=== PATIENT | female | born 1980 | race Caucasian/White ===

== ENCOUNTER 2022-11-20 07:51 | Outpatient (OUT) | payer BC, SELFPAY ==
[2022-11-20 08:16] LABS: Basophils Absolute Auto 0.1 10^3/uL (0.0-0.1); Eosinophils Absolute Auto 0.2 10^3/uL (0.0-0.7); Eosinophils Percent Auto 3.6 % (0.9-7.0); Hematocrit 40.6 % (36.0-48.0); Hemoglobin 13.3 g/dL (12.0-16.0); Immature Granulocytes Abs Auto 0.02 10^3/uL (0.00-0.03); Immature Granulocytes Pct Auto 0.3 % (0.0-0.5); Lymphocytes Absolute Auto 1.4 10^3/uL (1.2-3.8); Lymphocytes Percent Auto 22.9 % (20.5-60.0); Mean Corpuscular HGB Conc 32.8 g/dL (29.9-35.2); Mean Corpuscular Hemoglobin 29.5 pg (26.7-34.0); Mean Platelet Volume 10.5 fL (9.5-13.5); Monocytes Absolute Auto 0.4 10^3/uL (0.3-0.8); Monocytes Percent Auto 5.8 % (1.7-12.0); Neutrophils Percent Auto 66.4 % (43.0-75.0); Platelet Count 260 10^3/uL (150-450); Red Blood Count 4.51 10^6/uL (4.20-5.40); Red Cell Distribution Width 14.1 % (11.0-15.0); White Blood Count 6.1 10^3/uL (4.0-11.0)
[2022-11-20 09:04] LABS: Estimated Average Glucose 100 mg/dL; Glycohemoglobin A1C 5.1 % (4.5-6.2)
[2022-11-20 15:07] LABS: Alanine Aminotransferase 42 U/L (14-59); Alkaline Phosphatase 71 U/L (46-116); Anion Gap 13.3; Aspartate Amino Transferase 18 U/L (15-37); Bilirubin Total 0.5 mg/dL (0.2-1.0); Calcium 8.8 mg/dL (8.5-10.1); Chloride 103 mmol/L (98-107); Estimated GFR (African America >60 (>=60); Estimated GFR (Non-African Ame >60 (>=60); Glucose 90 mg/dL (74-106); Potassium 4.3 mmol/L (3.5-5.1); Sodium 139 mmol/L (136-145); Total Protein 7.3 g/dL (6.4-8.2)
[2022-11-20 15:08] LABS: Albumin Globulin Ratio 1.1; Albumin Level 3.9 g/dL (3.4-5.0); Chol HDL Ratio 3.3; Cholesterol 220 mg/dL (<=200); Globulin 3.4 g/dL; HDL Cholesterol 67 mg/dL (40-60); Thyroid Stimulating Hormone 1.407 uIU/mL (0.358-3.740); Triglycerides 41 mg/dL (<=150); VLDL CHOLESTEROL 8.2 mg/dL
== END 2022-11-20 07:52 | disposition home or self-care (01) ==
LOC: LAB 07:52
PROVIDERS: PCP Internal Medicine; Visit Provider Internal Medicine
DX: Z00.00 Encounter for general adult medical examination without abnormal findings (principal)
CPT/HCPCS: 36415; 80053; 80061; 83036; 84443; 85025

== ENCOUNTER 2023-06-27 10:05 | Outpatient (OUT) | payer BC, SELFPAY ==
--- NOTE | 2023-06-27 | XR_ITS ---
The [address] [address] Patient Name: WILD YI MRN: [id number] date: 1980 Sex: F Assigned Patient Location: Current Patient Location: Accession/Order Number: [id number] Exam Date: 06/27/2023 10:08 Report Date: 06/28/2023 04:57 At the request of: JOON BALTAZAR Procedure: XR lumbar spine min 4V EXAMINATION: XR lumbar spine min 4V HISTORY: LUMBAR SPINE PAIN COMPARISON: No relevant comparison available. FINDINGS: BONES: 10 mm anterior listhesis of L5 on S1. L5 bilateral pars interarticularis defects. No compression fracture or bone lesion. No significant facet arthropathy. DISC SPACES: Complete loss of disc space at L5-S1. PARASPINOUS: Negative. No paraspinous abnormality is seen. OTHER: Negative. XR/XR lumbar spine min 4V IMPRESSION: 1. Grade 2 anterior listhesis of L5 on S1 secondary to bilateral pars interarticularis defects; no change in alignment during flexion and extension. 2. L5-S1 marked degenerative disc disease with complete loss of disc space likely resulting in large posterior pseudodisc bulging. Electronically authenticated by: ZHAO HUNTER Date: 06/28/2023 04:57
== END 2023-06-27 10:06 | disposition home or self-care (01) ==
LOC: EC 10:05
PROVIDERS: PCP Internal Medicine; Visit Provider Orthopaedic Surgery Orthopaedic Surgery of the Spine
DX: M54.50 Low back pain, unspecified (principal); M51.37 Other intervertebral disc degeneration, lumbosacral region
CPT/HCPCS: 72110

== ENCOUNTER 2023-07-09 09:02 | Outpatient (OUT) | payer BC, SELFPAY ==
--- NOTE | 2023-07-09 09:06 | MR_ITS ---
[address] [address] Patient Name: WILD YI MRN: [facility]:[id number] date: 1980 Sex: F Assigned Patient Location: MRI Current Patient Location: MRI Accession/Order Number: [id number] Exam Date: 07/09/2023 09:10 Report Date: 07/09/2023 11:56 At the request of: JOON BALTAZAR Procedure: MR lumbar spine wo con EXAMINATION: MR lumbar spine wo con HISTORY: lumbar spondylolysis M43.06 COMPARISON: No relevant comparison available. TECHNIQUE: A variety of imaging planes and parameters were utilized for visualization of suspected pathology. FINDINGS: For the purposes of numbering, sagittal T2 image # 8 extends from the T11 vertebral body superiorly to the S3 level inferiorly. PARASPINAL AREA: Normal with no visible mass. BONES: 9 mm anterolisthesis of L5 in relation to S1. Bilateral L5 pars interarticularis fractures. Signal abnormality inferior L5 superior S1 vertebral body with decreased T1 increased T2 and STIR, Modic 1 change CORD/CAUDA EQUINA: Normal caliber, contour, and signal intensity. DISC LEVELS: 12-L1: No significant disc/facet abnormality, spinal stenosis, or foraminal stenosis. L1-L2: No significant disc/facet abnormality, spinal stenosis, or foraminal stenosis. L2-L3: No significant disc/facet abnormality, spinal stenosis, or foraminal stenosis. L3-L4: No significant disc/facet abnormality, spinal stenosis, or foraminal stenosis. L4-L5: Disc desiccation. Posterior disc protrusion leading up to 2.8 mm with annular tear. No central or foraminal stenosis L5-S1: 9 mm anterolisthesis of L5 on S1. Disc collapse with endplate sclerosis. Inflammatory signal noted in the vertebral bodies. No central canal stenosis. Severe bilateral foraminal stenosis MR/MR lumbar spine wo con IMPRESSION: 9 mm anterolisthesis of L5 on S1 resulting in severe bilateral foraminal stenosis Electronically authenticated by: CRISTIN CUEVAS Date: 07/09/2023 11:56
== END 2023-07-09 09:03 | disposition home or self-care (01) ==
LOC: MRI 09:02
PROVIDERS: PCP Internal Medicine; Visit Provider Orthopaedic Surgery Orthopaedic Surgery of the Spine
DX: M43.06 Spondylolysis, lumbar region (principal)
CPT/HCPCS: 72148

== ENCOUNTER 2023-07-30 12:27 | Outpatient (OUT) | payer BC, SELFPAY ==
--- NOTE | 2023-07-30 12:37 | P.CN_ITS ---
Consult Note: HPI Data of Consult Patient: new to practice Requesting Physician: Tammie Andrews NP Primary Care Provider: Aquiles Francisco, Consult Narrative Reason for consult: establish chronic low back pain with radiculopathy Narrative: Francoise Calvo a pleasant 43 year old female presents for evaluation and management of chronic low back pain with radiculopathy. Pain significantly increased 3 months ago in low back with right sided sciatica. Patient has failed to benefit from chiropractor and HEP greater than 6 weeks. Recent MRI and xray below, consistent with stenosis, degenerative changes, and lumbar instability. patient reports numbness tingling weakness radiating into right foot, denies loss of bowel or bladder. Pain today 1/10 aching burning increasing to 9/10. Pain increased with twisting, pushing, pulling, lifting, bending, activity, decreased with lying on her side and ice. Patient finds mild benefit to motrin, zoloft, zanaflex. Is currently and not interested in medication management. Patient has a hx of SIJ dysfunction requiring manual manipulation from chiropractor, but has failed to benefit. Patient was evaluated by Dr Palacios who recommended a lumbar decompression and fusion, however patient would like to avoid surgical intervention at this time. cc:: CC: Tammie Andrews NP Review of Systems ROS Status of ROS 10 or more systems reviewed and unremark able except as noted in history and below Musculoskeletal Reports: back pain, extremity pain and joint pain Exam Constitutional Documenting provider has reviewed patient's vital signs: yes Common normals: no apparent distress, oriented x3, healthy appearing, alert and well nourished General appearance: cooperative HENMT Common normals: normocephalic, hearing grossly normal bilaterally and moist oral mucous membranes Head and scalp: normocephalic Eye Common normals: PERRL Pupil: PERRL Neck & C-Spine Common normals: full ROM General: normal visual inspection Chest Common normals: inspection of chest normal Respiratory Common normals: normal respiratory effort, no retractions and no use of accessory muscles Back & Pelvis Lumbar spine/lower back: pain with ROM and straight leg raise positive right Sacroiliac joints: SI joint(s) abnormal (right +kayla fadir thigh thrust ganeslens ) SI joint details: tender to palpation, pain elicited by compression of iliac crest maneuver and pain elicited by passive hyperextension of lower extremity Other: strength 4/5 in RLE sensation decreased in right L5/S1 dermatomal pattern Extremity Common normals: normal to inspection and full ROM Neuro Common normals: oriented x3, CN's II-XII intact bilaterally, moves all extremities, no focal motor deficits, no sensory deficits noted and deep tendon reflexes 2+ bilaterally Sensorium/orientation: alert Gait (neuro): antalgic Motor exam: no movement abnormalities noted and strength abnormal (4/5 in RLE) Psych Common normals: mental status grossly normal, thought process normal, cooperative, affect normal, speech normal and activity/motor behavior normal Speech: normal speech Thought process: normal thought process Results Imaging Lumbar MRI: Radiologist's impression: 12-L1: No significant disc/facet abnormality, spinal stenosis, or foraminal stenosis. L1-L2: No significant disc/facet abnormality, spinal stenosis, or foraminal stenosis. L2-L3: No significant disc/facet abnormality, spinal stenosis, or foraminal stenosis. L3-L4: No significant disc/facet abnormality, spinal stenosis, or foraminal stenosis. L4-L5: Disc desiccation. Posterior disc protrusion leading up to 2.8 mm with annular tear. No central or foraminal stenosis L5-S1: 9 mm anterolisthesis of L5 on S1. Disc collapse with endplate sclerosis. Inflammatory signal noted in the vertebral bodies. No central canal stenosis. Severe bilateral foraminal stenosis Lumbar xray: Radiologist's impression: 1. Grade 2 anterior listhesis of L5 on S1 secondary to bilateral pars interarticularis defects; no change in alignment during flexion and extension. 2. L5-S1 marked degenerative disc disease with complete loss of disc space likely resulting in large posterior pseudodisc bulging. Additional Findings Additional findings: If on a controlled substance or opioids, I have checked an [place] report on this patient and there are no aberrancies noted in the prescribing history.??If on a controlled substance or opioid a drug screen was completed and reviewed within the last year, and if there has not been a drug screen completed we ordered one today to monitor higher risk, state monitored pain medication use. As part of providing excellent, safe, comprehensive care, the following was comp leted at our patient's visit: 1. A medication reconciliation and review to ensure accurate knowledge of current/active medications, including asking our patients to inform us about any [id number] medications or herbal remedies/nutritional supplements/alternative remedies. 2. A review to specifically ensure our patients have had annual screening for screening for depression, screening for tobacco use, and screening for unhealthy alcohol use. For concerning screenings had a discussion with the patient, provided patient education, and recommended follow-up with primary care provider when appropriate. If patient noted with a risk of falling, they received education on strength, gait, and balance training to prevent future risk of falling. Assessment and Plan Assessment and Plan (1) Lumbar stenosis with neurogenic claudication: (2) Lumbar spine instability: (3) Lumbar degenerative disc disease: (4) Chronic low back pain with sciatica: Plan The patient has had over 3 months of moderate to severe low back and right leg pain with functional impairment and inadequate response to conservative care including NSAIDS (unless there are contraindication such as concurrent blood thinners), multiple oral or topical pain medications, and home exercise program/physical therapy.? Patient has completed >6 weeks of guided home exercise program and/or formal physical therapy program without relief of their symptoms.? I have reviewed the imaging of the lumbar spine and no red flags were i dentified.? We discussed the risks and benefits of the procedure with the patient, and we are NOT planning on using sedation as outlined in the guidelines from Medicare unless there is a documented reason that sedation would be strongly recommended.?? The procedure will be completed with fluoroscopic guidance.? bilateral L5-s1 TFESI under fluoroscopy right SIJ injection under fluoroscopy continue HEP as tolerated defer UDS [employer]SULTANT reviewed and signed continue f/u with NS as planned f/u 2 weeks after completion of injection therapy
== END 2023-07-30 12:28 | disposition home or self-care (01) ==
LOC: PM 12:28
PROVIDERS: PCP Internal Medicine; Visit Provider Nurse Practitioner
DX: M48.062 Spinal stenosis, lumbar region with neurogenic claudication (principal); M51.36 Other intervertebral disc degeneration, lumbar region; M54.50 Low back pain, unspecified; M53.2X7 Spinal instabilities, lumbosacral region
CPT/HCPCS: G0463

== ENCOUNTER 2023-08-04 09:55 | Day surgery (SDC) | payer BC, SELFPAY ==
[2023-08-04 10:40] VITALS: BP 147/89; PULSE 82; TEMP 36; O2SAT 100
[2023-08-04 11:28] VITALS: BP 118/66; BP 120/65; PULSE 83; PULSE 86; O2SAT 96; O2SAT 97
[2023-08-04] MEDS: TRIAMCINOLONE ACETONIDE 40 MG/ML VIAL INJ (11:28)
[2023-08-04] MEDS: IOHEXOL 240 MG/ML - 10 ML VIAL INJ (11:28)
[2023-08-04] MEDS: LIDOCAINE HCL 2% PF 100 MG/5 ML VIAL INJ (11:28)
[2023-08-04] MEDS: BUPIVACAINE HCL 0.25% PF 25 MG/10 ML VIAL INJ (11:28)
[2023-08-04] MEDS: 0.9 % SODIUM CHLORIDE 10 ML SYRINGE - SALINE FLUSH INJ (11:28)
--- NOTE | 2023-08-04 11:31 | W.PM.PROCNOT ---
Date of procedure: 08/04/23 Pre-op diagnosis: Lumbar stenosis with neurogenic claudication Post-op diagnosis: same as pre-op Procedure: Procedure: Bilateral L5-S1 transforaminal epidural steroid injection Medications: Bupivacaine 0.25% 2cc, lidocaine 2% 1cc, kenalog 80mg The patient was seen and examined in the preoperative holding area.? Informed consent was obtained and placed on the chart.? Patient was brought to the medical procedure unit and placed in the prone position where a timeout was completed verifying the correct patient, procedure site, position, and planned special equipment using sterile aseptic technique.? Under direct fluoroscopic visualization a 25-gauge Quincke tipped spinal needle was advanced at level left L5-S1 to the designated neural foramen where contrast dye was injected to show adequate spread.? There was no evidence of vascular or adverse uptake.? Epidural spread was appreciated.? The above-mentioned injectate was then placed in a 1.5 mL aliquot preceded by negative aspiration.? The needle was removed. The same procedure, at the same level, was completed on the opposite side. ? Patient was taken to the postprocedural recovery area and monitored for an appropriate length of time before found suitable for discharge in the accompaniment of a responsible adult. Anesthesia: Local Surgeon: Miladis Rodriguez Pathology: none sent Condition: stable Disposition: no change
== END 2023-08-04 11:36 | disposition home or self-care (01) ==
PROVIDERS: PCP Internal Medicine; Visit Provider Anesthesiology
DX: M48.062 Spinal stenosis, lumbar region with neurogenic claudication (principal)
CPT/HCPCS: 64483; Q9966

== ENCOUNTER 2023-08-18 07:10 | Day surgery (SDC) | payer BC, SELFPAY ==
--- OUTSIDE RECORDS SUMMARY | 2023-08-18 07:13 | XMS_ITS | CCD ---
Author Organization [facility] Care Team Providers Care Neon Light Installer Name Role Phone Subhash, Christopher S Unavailable Unavailable Family Physician Unavailable Unavailable Deirdre vailable Family Physician Unavailable Unavailable Deirdre vailable Subhash, Christopher S Unavailable Unavailable Family Physician Unavailable Unavailable Deirdre vailable Family Physician Unavailable Unavailable Deirdre vailable Subhash, Christopher S Unavailable Unavailable Family Physician Unavailable Unavailable Deirdre vailable Family Physician Unavailable Unavailable Deirdre vailable Subhash, Christopher S Unavailable Unavailable Family Physician Unavailable Unavailable Deirdre vailable Family Physician Unavailable Unavailable Deirdre vailable jayla-Gretchen Luana Unavailable Unavailable Kountz, Mee Unavailable Unavailable Weinerman, Clotilde Unavailable Unavailable Kristie, Kelsey Unavailable Unavailable Aquiles Escobedo E Unavailable Unavailable Godinez, Luana Unavailable Unavailable Weinerman, Clotilde Unavailable Unavailable Kristie, Kelsey Unavailable Unavailable IVF NURSE RAYNA WAGNER Unavailable Unavaila to Klosterman Jamshid Unavailable Unavailable Chou, Annie Unavailable Unavailable Lydia, Anika Unavailable Unavailable Aquiles Escobedo Unavailable Unavailable Unavailable DR AQUILES ESCOBEDO Primary Care Unavailable DR AQUILES ESCOBEDO Consulting Unavailable DR AQUILES ESCOBEDO Attending Unavailable DR AQUILES ESCOBEDO Admitting Unavailable TESS SAXENA Consulting Unavailable DR AQUILES ESCOBEDO Primary Care Unavailable TESS SAXENA Attending Unavailable TESS SAXENA Admitting Unavailable DR AQUILES ESCOBEDO Primary Care Unavailable TESS SAXENA Consulting Unavailable TESS SAXENA Attending Unavailable ANASTASIA, TESS Admitting Unavailable DR AQUILES ESCOBEDO Primary Care Unavailable ANASTASIA, TESS Consulting Unavailable TESS SAXENA Attending Unavailable TESS SAXENA Admitting Unavailable TESS SAXENA Admitting Unavailable DR AQUILES ESCOBEDO Primary Care Unavailable RINKES, TESS Consulting Unavailable RINKES, TESS Attending Unavailable Rinkes, DO Tess Attending Provider NO FAMILY, PHYSICIAN Primary Care Unavailable Rinkes, Tess Admitting Unavailable Rinkes, Tess Attending Unavailable Ball, Aquiles Primary Care Unavailable Eulalia, Rocio Admitting Unavailable Eulalia, Rocio Attending Unavailable Nolan, Aquiles Primary Care Unavailable Rinkes, Tess Admitting Unavailable Rinkes, Tess Attending Unavailable Nolan, Aquiles Unavailable Dr. Kelsey Gray Attending Unavailable Kristie, Dr. Kelsey Mesa Referring Unavailable Ball, Dr. Aquiles Fontanez [facility] Jeanne Gray, Dr. Kelsey Mesa Attending Unavailable Kristie, Dr. Kelsey Mesa Referring Unavailable Nolan, Dr. Aquiles Fontanez [facility] Jeanne Gray, Dr. Kelsey Mesa Attending Unavailable Kristie, Dr. Kelsey Mesa Referring Unavailable Nolan, Dr. Aquiles Fontanez [facility] Jeanne Gray, Dr. Kelsey Mesa Attending Unavailable Kristie, Dr. Kelsey Mesa Referring Unavailable Nolan, Dr. Aquiles Fontanez [facility] Jeanne Gray, Dr. Kelsey Mesa Attending Unavailable Kristie, Dr. Kelsey Mesa Referring Unavailable Nolan, Dr. Aquiles Fontanez [facility] Jeanne Gray, Dr. Kelsey Mesa Attending Unavailable Kristie, Dr. Kelsey Mesa Referring Unavailable Nolan, Dr. Aquiles Fontanez [facility] Jeanne Gray, Dr. Kelsey Mesa Attending Unavailable Kristie, Dr. Kelsey Mesa Referring Unavailable Nolan, Dr. Aquiles Fontanez [facility] Jeanne Gray, Dr. Kelsey Msea Attending Unavailable Kristie, Dr. Kelsey Mesa Referring Unavailable Nolan, Dr. Aquiles Fontaenz [facility] Jeanne Gray, Dr. Kelsey Mesa Attending Unavailable Kristie, Dr. Kelsey Mesa Referring Unavailable Nolan, Dr. Aquiles Fontanez [facility] Jeanne Gray, Dr. Kelsey Mesa Attending Unavailable Kristie, Dr. Kelsey Mesa Referring Unavailable Nolan, Dr. Aquiles Fontanez [facility] KELSEY Price Attending Unavailable KELSEY GRAY Referring Unavailable Michael ODELL, Miladis Acosta Attending Unavailable Generic Provider , No Assigned Pcp Primary Car e Provider Unavailable KELSEY GRAY Attending Unavailable KELSEY GRAY Referring Unavailable KELSEY GRAY Attending Unavailable GENERIC PROVIDER, NO ASSIGNED PCP Primary Care Unavailable KELSEY GRAY Attending Unavailable GENERIC PROVIDER, NO ASSIGNED PCP Primary Care Unavailable Allergies Allergy Classification Reported Allergen(s) Allergy Type Date of Onset Reaction(s) Facility (2 sources) Amoxicillin / Clavulanate Drug Allergy Unknown [facility] Other (2 sources) Hydroxyquinolone *CHEMICALS* Propensity to adverse reactions Comment:Quinol ones [facility] Other (2 sources) ALLERGIES NOT ON FILE; Translations: [ALLERGIES NOT ON FILE] Propensity to adverse reactions (disorder) [facility] 3 Repository Medications Current Medications Medication Drug Class(es) Dates Sig (Normalized) Sig (Original) acetaminophen 325 mg / HYDROcodone bitartrate 5 mg oral tablet (2 sources) Opioid Agonist Start: 07-23-2017 take 1 tablet by mouth every four hours Hydrocodone-Acet aminophen (Excel) 5-325 mg tablet Active 1 TAB PO Q4H July 23, 2017 4:08pm aspirin 81 mg delayed release oral tablet (20 sources) Platelet Aggregation Inhibitor, Nonsteroidal Anti-inflammatory Drug Start: 11-15-2021 take 1 tablet by mouth every twenty-four hours Aspirin Adult Low Dose 81 MG 1 tablet Orally Once a day for 0 days Oct, Active take 2 tablets by mouth once gladys ly Aspirin 81 MG Oral Tablet Delayed Release TAKE 2 TABLET Daily Quantity: 60 Refills: 6 Ordered: 17-Dec-2019 Jamshid Currie MD Active Aspirin 81 MG Or al Tablet Delayed Release Refills: 0 DO Active cephalexin 500 mg oral capsule (2 sources) Cephalosporin Antibacterial Start: 07-23-2017 take 1 capsule by mouth every twelve hours Cephalexin (Keflex) 500 mg capsule Active 500 MG PO Q12H July 23, 2017 4:08pm famotidine 20 mg oral tablet (2 sources) Histamine-2 Receptor Antagonist take 1 tablet by mouth once at bedtime as needed Pepcid 20 MG 1 tablet at bedtime as needed Orally q HS Active melatonin 5 mg oral capsule (6 sources) Start: 07-23-2017 take 5 mg by mouth once daily Melatonin Active 5 MG PO Daily July 23, 2017 12:47pm Melatonin 10 MG Oral Capsule Refills: 0 Active naproxen 500 mg oral tablet (2 sources) Nonsteroidal Anti-inflammatory Drug Start: 07-23-2017 take 500 mg by mouth twice daily at mealtime Naproxen Active 500 MG PO Twice daily July 23, 2017 4:08pm administer with food or milk ondansetron 4 mg disintegrating oral tablet (2 sources) Serotonin-3 Receptor Antagonist Start: 07-23-2017 take 1 tablet by mouth every eight hours Ondansetron (Zofran Odt) 4 mg tablet,disintegr ating Active 4 MG PO Q8H 9 3 July 23, 2017 4:08pm sertraline 100 mg oral tablet (20 sources) Serotonin Reuptake Inhibitor Start: 08-27-2022 take 1 tablet by mouth once daily Sertraline HCl 100 MG 1 tablet Orally Once a day July, Active Start: 06-16-2017 take 100 mg by mouth once griselda y Sertraline Active 100 MG PO Daily July 23, 2017 12:00am take 2 tablets by mo uth once daily Zoloft 50 MG Oral Tablet TAKE 2 TABLETS DAILY. Quantity: 0 Refills: 0 Ordered: 11-Jan-2020 Jamshid Currie MD Active Zoloft 50 MG Ora l Tablet Refills: 0 DO Active Completed/Discontinued Medications Medication Drug Class(es) Dates Sig (Normalized) Sig (Original) [id number] 60 actuat albuterol 0.09 mg/actuat metered dose inhaler (2 sources) beta2-Adrenergic Agonist Start: 05-15-2013 take 2 puff(s) by inhalation every four hours as needed for cough Albuterol Sulfate HFA 108 (90 Base) MCG/ACT 2 puffs as needed Inhalation every 4 hrs for As needed for cough or wheeze May, Not-Taking/PRN Start: 05-15-2013 take 2 puff(s) by in halation every four hours as needed for cough Albuterol Sulfate HFA 108 (90 Base) MCG/ACT 2 puffs as needed Inhalation every 4 hrs for As needed for cough or wheeze May, Not-Taking ALPRAZolam 0.25 mg oral tablet (4 sources) Benzodiazepine Start: 03-04-2018 take 1 tablet by mouth every eight hours as needed for anxiety ALPRAZolam 0.25 MG Oral Tablet TAKE 1 TABLET BY MOUTH EVERY 8 HOURS NEEDED FOR ANXIETY Quantity: 30 Refills: 0 Start : 04-Mar-2018 Active Augmentin Tablets 875 MG (2 sources) Start: 05-15-2013 take 1 tablet by mouth every twelve hours Augmentin Tablets 875 MG 1 tablet By mouth Every 12 hours for 10 days May, Not-Taking/PRN Start: 05-15-2013 take 1 tablet by flaco th every twelve hours Augmentin Tablets 875 MG 1 tablet By mouth Every 12 hours for 10 days May, Not-Taking azithromycin 500 mg oral tablet (2 sources) Macrolide Antimicrobial Start: 05-15-2013 take 1 tablet by mouth every twenty-four hours Zithromax 500 MG 1 tablet Orally Once a day for 5 day(s) May, Not-Taking/PRN BD Disp Datto 18G X 1-/2 (1 source) Start: 08-19-2019 BD Disp Datto 18G X 1-2 Use to draw up Progesterone/Oil Quantity: 30 Refills: 3 Clotilde Espinosa MD Start : 19-Aug-2019 Active benzonatate 100 mg oral capsule (2 sources) Non-narcotic Antitussive Start: 05-15-2013 take 1 capsule by mouth every eight hours Benzonatate 100 MG 1 capsule as needed Orally Three times a day for As needed for cough May, Not-Taking/PRN ciprofloxacin 3 mg/ml / dexamethasone 1 mg/ml otic suspension (1 source) Corticosteroid, Quinolone Antimicrobial Start: 11-29-2020 Ciprofloxacin-Dexam ethasone 0.3-0.1 % Otic Suspension Quantity: 8 Refills: 0 Ordered: 29-Nov-2020 DO Start : 29-Nov-2020 Complete cyclobenzaprine hydrochloride 10 mg oral tablet (1 source) Muscle Relaxant Start: 12-11-2020 Cyclobenzaprine HCl - 10 MG Oral Tablet Quantity: 30 Refills: 0 Ordered: 12-Dec-2020 DO Start : 11-Dec-2020 Complete Cyproheptadine (2 sources) Cyproheptadine H Cl Not-Taking/PRN Cyproheptadine H Cl Not-Taking doxycycline hyclate 100 mg oral capsule (4 sources) Tetracycline-class Drug Start: 08-04-2018 take 1 capsule by mouth twice daily Doxycycline Hyclate 100 MG Oral Capsule Take 1 capsule twice daily Quantity: 8 Refills: 0 Clotilde Espinosa MD Start : 04-Aug-2018 Active 0.6 ml enoxaparin sodium 100 mg/ml prefilled syringe (20 sources) Low Molecular Weight Heparin Start: 09-01-2021 Enoxaparin Sodium 60 MG/0.6ML Injection Solution Prefilled Syringe INJECT 60 MG Daily Quantity: 30 Refills: 2 Ordered: 06-Sep-2021 Clotilde Espinosa MD Start : 01-Sep-2021 Active estradiol 2 mg oral tablet (20 sources) Estrogen Start: 09-01-2021 take 1 tablet by mouth three times daily Estradiol 2 MG Oral Tablet TAKE 1 TABLET 3 times daily Quantity: 90 Refills: 2 Ordered: 06-Sep-2021 Clotilde Espinosa MD Start : 01-Sep-2021 Active Start: 08-04-2018 take 3 tablets by mo uth once daily Estradiol 2 MG Oral Tablet take 3 tablets a day orally Quantity: 90 Refills: 3 Clotilde Espinosa MD Start : 04-Aug-2018 Active Start: 07-23-2017 take 2 mg by mouth twice daily Estradiol Active 2 MG PO Twice daily July 23, 2017 12:47pm fluticasone propionate 0.05 mg/actuat metered dose nasal spray (20 sources) Corticosteroid Start: 01-23-2021 Fluticasone Pr opionate 50 MCG/ACT Nasal Suspension Quantity: 48 Refills: 0 Ordered: 23-Jan-2021 DO Start : 23-Jan-2021 Active Start: 07-14-2020 Fluticasone Pr opionate 50 MCG/ACT 2 sprays (1 spray in each nostril) Nasally Once a day for 0 days Jun, Active Start: 07-14-2020 Fluticasone Pr opionate 50 MCG/ACT 2 sprays (1 spray in each nostril) Nasally Once a day for 0 days Jun, Active labetalol hydrochloride 200 mg oral tablet (10 sources) beta-Adrenergic Walter Start: 05-12-2020 take 1 tablet by mouth every twelve hours Labetalol HCl - 200 MG Oral Tablet TAKE 1 TABLET BY MOUTH EVERY 12 HOURS Quantity: 60 Refills: 2 Ordered: 05-Jun-2020 Annie Chou MD Start : 12-May-2020 Active letrozole 2.5 mg oral tablet (20 sources) Aromatase Inhibitor Start: 09-01-2021 take 2 tablets by mouth once daily Letrozole 2.5 MG Oral Tablet take 2 tablets by mouth every day Quantity: 60 Refills: 1 Ordered: 02-Nov-2021 Clotilde Espinosa MD Start : 01-Sep-2021 Active Start: 05-20-2019 take 2 tablets by mo ut once daily Letrozole 2.5 MG Oral Tablet TAKE 2 TABLET Daily Quantity: 180 Refills: 0 Clotilde Espinosa MD Start : 20-May-2019 Active 1 ml leuprolide acetate 3.75 mg/ml prefilled syringe (20 sources) Gonadotropin Releasing Hormone Receptor Agonist Start: 09-01-2021 inject 3.75 mg by intramuscular injection once Lupron Depot (1-Month) 3.75 MG Intramuscular Kit INJECT 3.75 MG Intramuscular Quantity: 1 Refills: 1 Ordered: 06-Sep-2021 Clotilde Espinosa MD Start : 01-Sep-2021 Active Start: 05-20-2019 inject 3.75 mg by in tramuscular injection once Lupron Depot (1-Month) 3.75 MG Intramuscular Kit INJECT 3.75 MG Intramuscular Quantity: 1 Refills: 1 Clotilde Espinosa MD Start : 20-May-2019 Active levothyroxine sodium 0.1 mg oral tablet (20 sources) l-Thyroxine Start: 01-08-2022 take 1 tablet by mouth in the morning Levothyroxine Sodium 100 MCG Oral Tablet TAKE 1 TABLET BY MOUTH IN THE MORNING ON AN EMPTY STOMACH, NOTHING TO EAT OR DRINK FOR 1 HOUR AFTER Quantity: 30 Refills: 2 Ordered: 04-Feb-2022 Zari Rivera Start : 08-Jan-2022 Active Start: 12-28-2021 take 1 tablet by flaco once daily in the morning Levothyroxine Sodium 75 MCG Oral Tablet TAKE 1 TABLET Daily take in the morning, on an empty stomach, avoid eating/drinking for one hour after Quantity: 30 Refills: 2 Ordered: 28-Dec-2021 Clotilde Espinosa MD Start : 28-Dec-2021 Active Start: 11-16-2021 take 1 tablet by flaco th once daily in the morning Levothyroxine Sodium 50 MCG 1 tablet in the morning on an empty stomach Orally Once a day Oct, Active Start: 08-31-2021 take 1 tablet by flaco once daily in the morning Levothyroxine Sodium 50 MCG 1 tablet in the morning on an empty stomach Orally Once a day Oct, Active Start: 07-06-2018 take 1 tablet by flaco th once daily Levothyroxine Sodium 75 MCG Oral Tablet Take 1 tablet daily Quantity: 90 Refills: 2 Ordered: 25-Mar-2020 Clotilde Espinosa MD Start : 31-Aug-2018 Active Start: 07-23-2017 take 50 ug by mouth once daily Levothyroxine Active 50 MCG PO Daily July 23, 2017 12:47pm lidocaine hydrochloride 20 mg/ml mucous membrane topical solution (4 sources) Antiarrhythmic, Amide Local Anesthetic Start: 05-06-2017 Lidocaine Viscous 2 % SOLN USE 5ML EVERY 4-6 HOURS NEEDED for pain. Quantity: 1 Refills: 0 Mee Coyle Start : 06-May-2017 Active 100 ML Bottle lidocaine 25 mg/ml / prilocaine 25 mg/ml topical cream (19 sources) Antiarrhythmic, Amide Local Anesthetic Start: 09-01-2021 Lidocaine-Prilocain e 2.5-2.5 % External Cream APPLY 1 HOUR BEFORE PROCEDURE DIRECTED. Quantity: 2 Refills: 2 Ordered: 06-Sep-2021 Clotilde Espinosa MD Start : 01-Sep-2021 Active Start: 08-19-2019 Lidocaine-Pril ocaine 2.5-2.5 % External Cream APPLY 1 HOUR BEFORE PROCEDURE DIRECTED. Quantity: 2 Refills: 2 Clotilde Espinosa MD Start : 19-Aug-2019 Active 30 GM Tube Luer Lock Safety Syringes 3 ML (1 source) Start: 08-19-2019 Luer Lock Safety Syringes 3 ML USE DIRECTED. Quantity: 31 Refills: 3 Clotilde Espinosa MD Start : 19-Aug-2019 Active methylPREDNISolone 16 mg oral tablet (4 sources) Corticosteroid Start: 08-04-2018 take 1 tablet by mouth at bedtime methylPREDNISolone 16 MG Oral Tablet TAKE 1 TABLET Bedtime Quantity: 4 Refills: 0 Clotilde Espinosa MD Start : 04-Aug-2018 Active norethindrone acetate 5 mg oral tablet (19 sources) Start: 09-01-2021 take 1 tablet by mouth once daily Norethindrone Acetate 5 MG Oral Tablet TAKE 1 TABLET DAILY. Quantity: 30 Refills: 1 Ordered: 06-Sep-2021 Clotilde Espinosa MD Start : 01-Sep-2021 Active Start: 07-12-2019 take 1 tablet by flaco th once daily Norethindrone Acetate 5 MG Oral Tablet Take 1 tablet daily Quantity: 90 Refills: 1 Clotilde Espinosa MD Start : 12-Jul-2019 Active omeprazole 10 mg delayed release oral capsule (12 sources) Proton Pump Inhibitor Start: 03-28-2020 take 1 tablet by mouth once daily Omeprazole 10 MG Oral Capsule Delayed Release TAKE ONE TABLET BY MOUTH DAILY Quantity: 30 Refills: 3 Ordered: 28-Mar-2020 Annie Chou MD Start : 28-Mar-2020 Active oseltamivir 75 mg oral capsule (2 sources) Neuraminidase Inhibitor Start: 05-15-2013 take 1 capsule by mouth every twelve hours Tamiflu 75 MG 1 capsule Orally Twice a day for 5 day(s) May, Not-Taking/PRN predniSONE 10 mg oral tablet (20 sources) Start: 09-01-2021 take 1 tablet by mouth once daily predniSONE 10 MG Oral Tablet TAKE 1 TABLET DAILY. Quantity: 60 Refills: 0 Ordered: 10-Jan-2022 Christa Macias MD Start : 10-Jan-2022 Active Start: 12-07-2020 predniSONE 20 MG Oral Tablet Quantity: 10 Refills: 0 Ordered: 07-Dec-2020 DO Start : 07-Dec-2020 Complete Start: 05-20-2019 take 1 tablet by flaco th once daily predniSONE 10 MG Oral Tablet Take 1 tablet daily Quantity: 90 Refills: 0 Clotilde Espinosa MD Start : 20-May-2019 Active Start: 05-15-2013 take 1 tablet by flaco th twice daily as needed prednisone 20 mg 1 tablet orally Twice daily for 3 days May, Not-Taking/PRN Plus/Iron 27-1 MG T ABS (11 sources) Start: 01-02-2015 Plus/ Iron 27-1 MG TABS TAKE 1 TABLET DAILY. Quantity: 90 Refills: 3 Luana Godinez MD Start : 02-Jan-2015 Active Start: 01-02-2015 Plus/ Iron 27-1 MG TABS TAKE 1 TABLET DAILY. Quantity: 90 Refills: 3 Luana Morin MD Start : 02-Jan-2015 Active Plus/Iron 27-1 MG TABS (20 sources) Start: 01-02-2015 Plus/Iron 27-1 MG TABS TAKE 1 TABLET DAILY. Quantity: 90 Refills: 3 Ordered: 02-Jan-2015 Luana Godinez MD Start : 02-Jan-2015 Active progesterone 50 mg/ml injectable solution (20 sources) Progesterone Start: 09-01-2021 inject 1 mL by intramuscular injection once daily Progesterone 50 MG/ML Intramuscular Oil INJECT 1 ML Daily Quantity: 3 Refills: 2 Ordered: 06-Sep-2021 Clotilde Espinosa MD Start : 01-Sep-2021 Active Start: 09-01-2021 Endometrin 100 MG Vaginal Insert INSERT 1 SUPP Twice daily Quantity: 60 Refills: 2 Ordered: 06-Sep-2021 Clotilde Espinosa MD Start : 01-Sep-2021 Active Start: 08-19-2019 Progesterone 5 0 MG/ML Intramuscular Oil USE DIRECTED Quantity: 3 Refills: 3 Clotilde Espinosa MD Start : 19-Aug-2019 Active 10 ML Vial Syringe 22G X 1-1/2 3 ML (1 source) Start: 08-19-2019 Syringe 22G X 1-1/2 3 ML Use to inject Progesterone/Oil Quantity: 30 Refills: 3 Clotilde Espinosa MD Start : 19-Aug-2019 Active Tegaderm Ag Mesh 2 X2 External Pad (18 sources) Start: 09-01-2021 Tegaderm Ag Me sh 2 X2 External Pad APPLY 1 INCH Daily Quantity: 30 Refills: 2 Ordered: 06-Sep-2021 Clotilde Espinosa MD Start : 01-Sep-2021 Active Tegaderm Film 2-3/8 x2-3/4 (1 source) Start: 08-19-2019 Tegaderm Film 2-3/8 x2-3/4 USE DIRECTED. Quantity: 30 Refills: 2 Clotilde Espinosa MD Start : 19-Aug-2019 Active Problems Active Problems Problem Classification Problem Date Documented Da te Episodic/Chronic Abdominal pain (20 sources) Right lower quadrant pain; Translations: [Abdominal pain, right lower quadrant] Episodic Adjustment disorders (8 sources) Complicated grieving; Translations: [Complicated bereavement] Episodic Administrative/social admission (8 sources) Bereavement; Translations: [Bereavement] Episodic Allergic reactions (20 sources) H/O: non-drug allergy; Translations: [Other allergy, other than to medicinal agents] Episodic Anxiety disorders (20 sources) Anxiety; Translations: [Mixed anxiety and depressive disorder] Chronic Calculus of urinary tract (2 sources) Kidney stone; Translations: [Calculus of kidney] 07-23-2017 Episodic Contraceptive and procreative management (20 sources) Encounter for male factor infertility in female patient; Translations: [Patient encounter status] Episodic Endometriosis (20 sources) Endometriosis (clinical); Translations: [Endometriosis, site unspecified] Chronic Esophageal disorders (20 sources) Gastroesophageal reflux disease; Translations: [Esophageal reflux] Chronic Essential hypertension (20 sources) Hypertensive disorder; Translations: [Unspecified essential hypertension] Chronic Female infertility (20 sources) Female infertility; Translations: [Infertility, female, of unspecified origin] Chronic Genitourinary symptoms and ill-defined conditions (20 sources) Urgent desire to urinate; Translations: [Urgency of urination] Episodic Immunity disorders (20 sources) Immunodeficiency disorder; Translations: [Unspecified immunity deficiency] Chronic Immunizations and screening for infectious disease (20 sources) Patient encounter status; Translations: [Special screening examination for other specified viral diseases] Resolved: 2 Episodic Joint disorders and dislocations; trauma-related (20 sources) Subluxation complex (vertebral); Translations: [Closed dislocation, vertebra, unspecified site] Episodic Menopausal disorders (20 sources) 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; Translations: [Diminished ovarian reserve] Chronic Menstrual disorders (4 sources) Amenorrhea; Translations: [Amenorrhea] Chronic Miscellaneous mental health disorders (20 sources) Psychosomatic factor in physical condition; Translations: [Psychic factors associated with diseases classified elsewhere] Chronic Mood disorders (9 sources) Mild recurrent major depression; Translations: [Major depressive disorder, recurrent, mild] Onset: 3 Chronic Other aftercare (20 sources) Long-term current use of steroid; Translations: [Long-term (current) use of steroids] Episodic Other bone disease and musculoskeletal deformities (20 sources) Cervical somatic dysfunction; Translations: [Nonallopathic lesions, cervical region] Episodic Other bone disease and musculoskeletal deformities (20 sources) Somatic dysfunction of upper limb; Translations: [Nonallopathic lesions, upper extremities] Episodic Other bone disease and musculoskeletal deformities (20 sources) Somatic dysfunction of rib; Translations: [Nonallopathic lesions, rib cage] Episodic Other bone disease and musculoskeletal deformities (20 sources) Segmental and somatic dysfunction of thoracic region; Translations: [Somatic dysfunction of thoracic region] Episodic Other bone disease and musculoskeletal deformities (20 sources) Segmental and somatic dysfunction of head region; Translations: [Somatic dysfunction of head region] Episodic Other complications of (20 sources) Missed miscarriage; Translations: [Missed ] Episodic Other complications of (20 sources) Multigravida of advanced maternal age; Translations: [Elderly multigravida, unspecified as to episode of care or not applicable] Episodic Other complications of (20 sources) Urinary tract infection in ; Translations: [Infections of genitourinary tract in , unspecified as to episode of care or not applicable] Episodic Other complications of (4 sources) Endocrine, nutritional and metabolic diseases complicating , second trimester; Translations: [ENDOCRN NUTR MET DZ COMP PG 2ND TRI] Onset: 3 Episodic Other endocrine disorders (7 sources) Diminished ovarian reserve; Translations: [Diminished ovarian reserve due to low antral follicle] Episodic Other female genital disorders (20 sources) History of recurrent miscarriage - not ; Translations: [Recurrent loss without current ] Episodic Other female genital disorders (20 sources) 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; Translations: [Recurrent loss, antepartum condition or complication] Episodic Other gastrointestinal disorders (8 sources) Diarrhea; Translations: [Diarrhea] Episodic Other hereditary and degenerative nervous system conditions (20 sources) Other specified extrapyramidal and movement disorders; 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 Other lower respiratory disease (4 sources) Cough; Translations: [Cough] Episodic Other nervous system disorders (20 sources) H/O: migraine; Translations: [Personal history of other disorders of nervous system and sense organs] Episodic Other non-traumatic joint disorders (20 sources) Shoulder pain; Translations: [Pain in joint, shoulder region] Episodic Other nutritional; endocrine; and metabolic disorders (20 sources) Obesity; Translations: [Obesity, unspecified] Chronic Other screening for suspected conditions (not mental disorders or infectious disease) (20 sources) Increased prolactin level; Translations: [Viral screening status] Episodic Other upper respiratory infections (20 sources) Chronic maxillary sinusitis; Translations: [Maxillary sinusitis] Chronic Other upper respiratory infections (9 sources) Maxillary sinusitis; Translations: [Maxillary sinusitis, unspecified chronicity] Episodic Otitis media and related conditions (6 sources) Bilateral recurrent acute serous otitis media of middle ears; Translations: [Acute serous otitis media] Episodic Polyhydramnios and other problems of amniotic cavity (20 sources) Subchorionic hematoma; Translations: [Other placental conditions, affecting management of mother, antepartum condition or complication] Episodic Regional enteritis and ulcerative colitis (13 sources) Crohn's disease; Translations: [Crohn's disease of small intestine] Chronic Residual codes; unclassified (20 sources) H/O: ; Translations: [First trimester ] Onset: 2 Resolved: 7 Episodic Residual codes; unclassified (20 sources) Conceived by in vitro fertilization; Translations: [Other specified conditions influencing health status] Episodic Residual codes; unclassified (1 source) 24 weeks gestation of ; Translations: [24 WEEKS GESTATION OF ] Onset: 3 Episodic Residual codes; unclassified (1 source) 35 weeks gestation of ; Translations: [35 weeks gestation of ] Onset: 3 Episodic Spondylosis; intervertebral disc disorders; other back problems (11 sources) Cervical radiculopathy; Translations: [Cervical radiculopathy] Chronic Spondylosis; intervertebral disc disorders; other back problems (10 sources) Cervical radiculopathy; Translations: [Brachial neuritis or radiculitis NOS] Episodic Spontaneous (20 sources) Miscarriage; Translations: [ demise from miscarriage] Episodic Comment on above: 9 wk D&C 11/02/2018; Sprains and strains (20 sources) Strain of back muscle; Translations: [Strain of thoracic region] Episodic Thyroid disorders (20 sources) Subclinical hypothyroidism; Translations: [Other specified acquired hypothyroidism] Onset: 3 Resolved: 1 Chronic Unclassified (1 source) Unknown / UNK(Unknown) Onset: 8 Unclassified (1 source) Encounter for supervision of other normal , third trimester; Translations: [Encounter for supervision of other normal , third trimester] Onset: 3 Unclassified (1 source) Encounter for screening for Streptococcus B; Translations: [Encounter for screening for Streptococcus B] Onset: 3 Urinary tract infections (20 sources) Urinary tract infectious disease; Translations: [Urinary tract infection, site not specified] Episodic Past or Other Problems Problem Classification Problem Date Documented Da te Episodic/Chronic Acute and chronic tonsillitis (20 sources) Acute tonsillitis; Translations: [Acute tonsillitis] Resolved: 11-02-2018 Episodic Administrative/social admission (7 sources) Conceived by in vitro fertilization; Translations: [Conceived by in vitro fertilization] Esophageal disorders (1 source) Esophageal disorders Mycoses (20 sources) Mycosis; 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] Resolved: 11-02-2018 Episodic Other bone disease and musculoskeletal deformities (9 sources) Somatic dysfunction of thoracic region; Translations: [Somatic dysfunction of thoracic region] Other bone disease and musculoskeletal deformities (9 sources) Somatic dysfunction of head region; Translations: [Somatic dysfunction of head region] Other complications of (20 sources) First trimester ; Translations: [Supervision of high-risk with history of infertility] Resolved: 01-30-2017 Episodic Other female genital disorders (20 sources) H/O gynecological disorder; Translations: [Personal history of other genital system and obstetric disorders] Resolved: 12-22-2016 Episodic Other female genital disorders (20 sources) H/O: amenorrhea; Translations: [Personal history of other genital system and obstetric disorders] Resolved: 11-03-2018 Episodic Other gastrointestinal disorders (20 sources) Personal history of other diseases of the digestive system; Translations: [History of Crohns disease] Resolved: 04-20-2020 Episodic Other nervous system disorders (20 sources) Postoperative pain ; Translations: [Other acute postoperative pain] Resolved: 04-18-2016 Episodic Unclassified (1 source) 43480/N20.1 Onset: 07-30-2017 Unclassified (20 sources) Patient encounter status; Translations: [History of In vitro fertilization] Unclassified (4 sources) Counseling for infertility done; Translations: [Infertility counseling] Unclassified (4 sources) Screening status; Translations: [Special screening examination for other specified chlamydial diseases] Unclassified (11 sources) Long-term current use of steroid; Translations: [Steroid long-term use] Unclassified (9 sources) Finding of scapular structure; Translations: [Scapular dyskinesis] Unclassified (9 sources) 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; Translations: [Female infertility associated with male factors] Unclassified (20 sources) History of clinical finding in subject; Translations: [History of cough] Resolved: 11-02-2018 NEGATED: Highlighted row has not occurred!Residual codes; unclassified (20 sources) Disease Episodic Results Test Name Value Interpretation Reference Range Facility Complete Blood Count Auto Di ffon 08-20-2022 Basophils (Bld) [#/Vol] 0.1 10*3/uL Normal 0.0-0.2 [facility] Comment on above: Order Comment: Comme nt Draw at 630 am Result Comment: PERF ORMED BY: [place] [address] PATHOLOGIST [employer] RENETTA CASE M.D. Performed By: #### C BC #### [address] Basophils/100 WBC (Bld) 0.6 % Normal . [facility] Comment on above: Order Comment: Comme nt Draw at 630 am Performed By: #### C BC #### [address] Eosinophils (Bld) [#/Vol] 0.1 10*3/uL Normal 0.0-0.45 [facility] Comment on above: Order Comment: Comme nt Draw at 630 am Performed By: #### C BC #### [address] Eosinophils/100 WBC (Bld) 1.1 % Normal . [facility] Comment on above: Order Comment: Comme nt Draw at 630 am Performed By: #### C BC #### [address] Erythrocyte distribution width (RBC) [Ratio] 14.4 % Normal 11.9-15.3 [facility] Comment on above: Order Comment: Comme nt Draw at 630 am Performed By: #### C BC #### [address] Hematocrit (Bld) [Volume fraction] 32.8 % Low 34.0-46.4 [facility] Comment on above: Order Comment: Comme nt Draw at 630 am Performed By: #### C BC #### [address] Hemoglobin (Bld) [Mass/Vol] 10.9 g/dL Low 11.8-15.4 [facility] Comment on above: Order Comment: Comme nt Draw at 630 am Performed By: #### C BC #### [address] Lymphocytes (Bld) [#/Vol] 1.4 10*3/uL Normal 1.00-4.8 [facility] Comment on above: Order Comment: Comme nt Draw at 630 am Performed By: #### C BC #### [address] Lymphocytes/100 WBC (Bld) 14.2 % Normal . [facility] Comment on above: Order Comment: Comme nt Draw at 630 am Performed By: #### C BC #### [address] MCH (RBC) [Entitic mass] 29.6 pg Normal 24.7-34.3 [facility] Comment on above: Order Comment: Comme nt Draw at 630 am Performed By: #### C BC #### [address] MCV (RBC) [Entitic vol] 88.8 fL Normal 80-100 [facility] Comment on above: Order Comment: Comme nt Draw at 630 am Performed By: #### C BC #### [address] Mean Corpuscular HGB Conc 33.4 g/dL Normal 32.0-35.0 [facility] Comment on above: Order Comment: Comme nt Draw at 630 am Performed By: #### C BC #### [address] Monocytes (Bld) [#/Vol] 0.5 10*3/uL Normal 0.0-0.8 [facility] Comment on above: Order Comment: Comme nt Draw at 630 am Performed By: #### C BC #### [address] [address] [place] [address] [place] Monocytes/100 WBC (Bld) 5.3 % Normal . [facility] Comment on above: Order Comment: Comme nt Draw at 630 am Performed By: #### C BC #### [facility] [address] Neutrophils (Bld) [#/Vol] 7.7 10*3/uL Normal 1.8-7.7 [facility] Comment on above: Order Comment: Comme nt Draw at 630 am Performed By: #### C BC #### [address] Neutrophils/100 WBC (Bld) 78.8 % Normal . [facility] Comment on above: Order Comment: Comme nt Draw at 630 am Performed By: #### C BC #### [facility] [address] [place] [address] NRBC% 0.1 /100{WBC} Normal 0-0.5 [facility] Comment on above: Order Comment: Comme nt Draw at 630 am Performed By: #### C BC #### [address] Platelet mean volume (Bld) [Entitic vol] 11.6 fL High 6.3-10.7 [facility] Comment on above: Order Comment: Comme nt Draw at 630 am Performed By: #### C BC #### [facility] [address] [place] [address] [place] Platelets (Bld) [#/Vol] 149 10*3/uL Low 150-450 [facility] Comment on above: Order Comment: Comme nt Draw at 630 am Performed By: #### C BC #### [place] [address] [place] RBC (Bld) [#/Vol] 3.69 10*6/uL Normal 3.60-5.00 [facility] Comment on above: Order Comment: Comme nt Draw at 630 am Performed By: #### C BC #### [place] [address] [place] WBC (Bld) [#/Vol] 9.7 10*3/uL Normal 3.8-11.6 [facility] Comment on above: Order Comment: Comme nt Draw at 630 am Performed By: #### C BC #### [address] ABO/Rh Retypeon 08-19-2022 ABO/RH Recheck Result Positive Normal [facility] Comment on above: Result Comment: PERF ORMED BY: [place] [address] PATHOLOGIST [employer] RENETTA CASE M.D. Complete Blood Count Auto Di ffon 08-19-2022 Basophils (Bld) [#/Vol] 0.1 10*3/uL Normal 0.0-0.2 [facility] Comment on above: Result Comment: PERF ORMED BY: [place] [address] PATHOLOGIST [employer] RENETTA CASE M.D. Performed By: #### C BC #### [facility] [address] [place] [address] #### RPR W RFX #### [facility] , Basophils/100 WBC (Bld) 0.8 % Normal . [facility] Comment on above: Performed By: #### C BC #### [facility] [address] [place] [address] #### RPR W RFX #### [facility] , Eosinophils (Bld) [#/Vol] 0.1 10*3/uL Normal 0.0-0.45 [facility] Comment on above: Performed By: #### C BC #### [facility] [address] [place] [address] [place] #### RPR W RFX #### [facility] , Eosinophils/100 WBC (Bld) 1.4 % Normal . [facility] Comment on above: Performed By: #### C BC #### [facility] [address] [place] [address] #### RPR W RFX #### [facility] , Erythrocyte distribution width (RBC) [Ratio] 14.7 % Normal 11.9-15.3 [facility] Comment on above: Performed By: #### C BC #### [facility] [address] [place] [address] #### RPR W RFX #### [facility] , Hematocrit (Bld) [Volume fraction] 33.3 % Low 34.0-46.4 [facility] Comment on above: Performed By: #### C BC #### [address] #### RPR W RFX #### [facility] , Hemoglobin (Bld) [Mass/Vol] 11.2 g/dL Low 11.8-15.4 [facility] Comment on above: Performed By: #### C BC #### [address] #### RPR W RFX #### [facility] , Lymphocytes (Bld) [#/Vol] 1.6 10*3/uL Normal 1.00-4.8 [facility] Comment on above: Performed By: #### C BC #### [facility] [address] [place] [address] #### RPR W RFX #### [facility] , Lymphocytes/100 WBC (Bld) 16.0 % Normal . [facility] Comment on above: Performed By: #### C BC #### [facility] [address] [place] [address] [place] #### RPR W RFX #### [facility] , MCH (RBC) [Entitic mass] 29.6 pg Normal 24.7-34.3 [facility] Comment on above: Performed By: #### C BC #### [address] [place] [address] [place] #### RPR W RFX #### [facility] , MCV (RBC) [Entitic vol] 88.3 fL Normal 80-100 [facility] Comment on above: Performed By: #### C BC #### [facility] [address] [place] [address] #### RPR W RFX #### [facility] , Mean Corpuscular HGB Conc 33.5 g/dL Normal 32.0-35.0 [facility] Comment on above: Performed By: #### C BC #### [facility] [address] [place] [address] #### RPR W RFX #### [facility] , Monocytes (Bld) [#/Vol] 0.7 10*3/uL Normal 0.0-0.8 [facility] Comment on above: Performed By: #### C BC #### [facility] [address] [place] [address] #### RPR W RFX #### [facility] , Monocytes/100 WBC (Bld) 7.1 % Normal . [facility] Comment on above: Performed By: #### C BC #### [facility] [address] [place] [address] #### RPR W RFX #### [facility] , Neutrophils (Bld) [#/Vol] 7.5 10*3/uL Normal 1.8-7.7 [facility] Comment on above: Performed By: #### C BC #### [facility] [address] [place] [address] [place] #### RPR W RFX #### [facility] , Neutrophils/100 WBC (Bld) 74.7 % Normal . [facility] Comment on above: Performed By: #### C BC #### [address] #### RPR W RFX #### [facility] , NRBC% 0.1 /100{WBC} Normal 0-0.5 [facility] Comment on above: Performed By: #### C BC #### [facility] [address] [place] [address] #### RPR W RFX #### [facility] , Platelet mean volume (Bld) [Entitic vol] 11.5 fL High 6.3-10.7 [facility] Comment on above: Performed By: #### C BC #### [address] #### RPR W RFX #### [facility] , Platelets (Bld) [#/Vol] 171 10*3/uL Normal 150-450 [facility] Comment on above: Performed By: #### C BC #### [address] #### RPR W RFX #### [facility] , RBC (Bld) [#/Vol] 3.77 10*6/uL Normal 3.60-5.00 [facility] Comment on above: Performed By: #### C BC #### [address] #### RPR W RFX #### [facility] , WBC (Bld) [#/Vol] 10.0 10*3/uL Normal 3.8-11.6 [facility] Comment on above: Performed By: #### C BC #### [facility] [address] [place] [address] #### RPR W RFX #### [facility] , Dipstick and Microscopicon 0 08-19-2022 Appearance (U) Cloudy Critically abnormal Clear [facility] Comment on above: Order Comment: Name Collection Type:: Clean-Voided Midstream Performed By: #### O BUDS, ADDONUAPLUS #### [facility] [address] [place] [address] [place] Bacteria,Urine None Seen Normal None Seen [facility] Comment on above: Order Comment: Name Collection Type:: Clean-Voided Midstream Performed By: #### O BUDS, ADDONUAPLUS #### [facility] [address] [place] [address] [place] Bilirubin,Urine 1+ High Negative [facility] Comment on above: Order Comment: Name Collection Type:: Clean-Voided Midstream Performed By: #### O BUDS, ADDONUAPLUS #### [facility] [address] [place] [address] [place] Calcium Oxalate Crystals,Urine 2+ Normal [facility] Comment on above: Order Comment: Name Collection Type:: Clean-Voided Midstream Performed By: #### O BUDS, ADDONUAPLUS #### [facility] [address] [place] [address] [place] Color (U) Dark Yellow Critically abnormal Yellow [facility] Comment on above: Order Comment: Name Collection Type:: Clean-Voided Midstream Performed By: #### O BUDS, ADDONUAPLUS #### [facility] [address] [place] [address] [place] Glucose Ql (U) Normal Normal Normal [facility] Comment on above: Order Comment: Name Collection Type:: Clean-Voided Midstream Performed By: #### O BUDS, ADDONUAPLUS #### [facility] [address] [place] [address] [place] Hyaline Casts,Urine 0-8 Normal 0-8 [facility] Comment on above: Order Comment: Name Collection Type:: Clean-Voided Midstream Result Comment: PERF ORMED BY: [place] [address] PATHOLOGIST J[employer] RENETTA CASE M.D. Performed By: #### O BUDS, ADDONUAPLUS #### [facility] [address] [place] [address] [place] Ketones Ql (U) Trace High Negative [facility] Comment on above: Order Comment: Name Collection Type:: Clean-Voided Midstream Performed By: #### O BUDS, ADDONUAPLUS #### [address] Leukocyte esterase Test strip Ql (U) 1+ High Negative [facility] Comment on above: Order Comment: Name Collection Type:: Clean-Voided Midstream Performed By: #### O BUDS, ADDONUAPLUS #### [place] [address] [place] Nitrite,Urine Negative Normal Negative [facility] Comment on above: Order Comment: Name Collection Type:: Clean-Voided Midstream Performed By: #### O BUDS, ADDONUAPLUS #### [address] Occult Blood,Urine Negative Normal Negative [facility] Comment on above: Order Comment: Name Collection Type:: Clean-Voided Midstream Result Comment: PERF ORMED BY: [place] [address] PATHOLOGIST J[employer] RENETTA CASE M.D. Performed By: #### O BUDS, ADDONUAPLUS #### [address] Othe Crystals,Urine None Seen Normal [facility] Comment on above: Order Comment: Name Collection Type:: Clean-Voided Midstream Performed By: #### O BUDS, ADDONUAPLUS #### [place] [address] [place] pH (U) 6.5 [pH] Normal 5.0-9.0 [facility] Comment on above: Order Comment: Name Collection Type:: Clean-Voided Midstream Performed By: #### O BUDS, ADDONUAPLUS #### [place] [address] [place] Protein (U) [Mass/Vol] 30 mg/dL High Negative [facility] Comment on above: Order Comment: Name Collection Type:: Clean-Voided Midstream Performed By: #### O BUDS, ADDONUAPLUS #### [address] [place] [address] [place] RBC,Urine None Seen Normal 0-4 [facility] Comment on above: Order Comment: Name Collection Type:: Clean-Voided Midstream Performed By: #### O BUDS, ADDONUAPLUS #### [address] Specificy Waterflow,Urine 1.037 High 1.001-1.030 [facility] Comment on above: Order Comment: Name Collection Type:: Clean-Voided Midstream Performed By: #### O BUDS, ADDONUAPLUS #### [address] Squamous Epithelial Cell,Urine 3-4 High 0-2 [facility] Comment on above: Order Comment: Name Collection Type:: Clean-Voided Midstream Performed By: #### O BUDS, ADDONUAPLUS #### [address] Urobilinogen,Urine Normal Normal Normal [facility] Comment on above: Order Comment: Name Collection Type:: Clean-Voided Midstream Performed By: #### O BUDS, ADDONUAPLUS #### [place] [address] [place] WBC,Urine 1-2 Normal 0-4 [facility] Comment on above: Order Comment: Name Collection Type:: Clean-Voided Midstream Performed By: #### O BUDS, ADDONUAPLUS #### [address] OB Urine Drug Screen (NO THC )on 08-19-2022 Amphetamine Screen,Urine Negative Normal Negative [facility] Comment on above: Performed By: #### O BUDS, ADDONUAPLUS #### [address] Barbiturate Screen,Urine Negative Normal Negative [facility] Comment on above: Performed By: #### O BUDS, ADDONUAPLUS #### [address] Benzodiazepines Screen,Urine Negative Normal Negative [facility] Comment on above: Performed By: #### O BUDS, ADDONUAPLUS #### [address] Cocaine Screen,Urine Negative Normal Negative [facility] Comment on above: Performed By: #### O BUDS, ADDONUAPLUS #### [address] Opiate Screen,Urine Negative Normal Negative [facility] Comment on above: Performed By: #### O BUDS, ADDONUAPLUS #### [address] Phencyclidine Screen, Urine Negative Normal Negative [facility] Comment on above: Result Comment: Thes e are unconfirmed results and should not be used for legal purposes. Drug Cut-Off Concentration: AMPH 1000 ng/mL GUILHERME 200 ng/mL SOM 200 ng/mL COCM 300 ng/mL OP 300 ng/mL PCP 25 ng/mL PERFORMED BY: [place] [address] PATHOLOGIST J[employer] RENETTA CASE M.D. Performed By: #### O BUDS, ADDONUAPLUS #### [address] RPR w/rfx to Quant TP Abson 08-19-2022 RPR, Rfx Quant RPR Non-Reactive Normal Non Reactive [facility] Comment on above: Result Comment: Perf ormed at: - [facility] [address] [id number] [employer] Assistant: Shad Velez PhD, Phone: [phone] PERFORMED BY: [place] [address] PATHOLOGIST [employer] RENETTA CASE M.D. Performed By: #### C BC #### [address] #### RPR W RFX #### [facility] , Type and Screenon 08-19-2022 ABO and Rh group Nom (Bld) Blood group A Rh(D) positive Normal [facility] Comment on above: Result Comment: PERF ORMED BY: [facility] [address] [id number] PATHOLOGIST J[employer] RENETTA CASE M.D. Strep B Cultureon 07-26-2022 Strep B Culture Reason for Exam 35 w eeks gestation of ; screening for stre Vaginal/Rectal Strep B Only Cult No Group B Beta Streptococcus Isolated 3 Days PERFORMED BY: [place] [address] PATHOLOGIST J[employer] RENETTA CASE M.D. Normal [facility] Comment on above: Performed By: #### C USTB #### [address] FREE T4on 07-03-2022 Free T4 [Mass/Vol] 0.94 ng/dL Normal 0.76-1.46 [facility] Comment on above: Performed By: #### C BC #### [facility] [address] [place] [address] Dr. Jose Holley TSHon 07-03-2022 TSH 2.003 uIU/mL Normal 0.358-3.740 [facility] Comment on above: Performed By: #### T SH #### [facility] [address] [place] [address] Dr. Jose Holley FREE T4on 06-05-2022 Free T4 [Mass/Vol] 0.91 ng/dL Normal 0.76-1.46 [facility] Comment on above: Performed By: #### C BC #### [facility] [address] [place] [address] Dr. Jose Holley GLUCOSE - 1HRon 06-05-2022 Glucose [Mass/Vol] 106 mg/dL Normal 74-106 [facility] Comment on above: Performed By: #### G LU1HR #### [facility] [address] [place] [address] Dr. Jose Holley HEMOGLOBIN AND HEMATOCRITon 06-05-2022 Hematocrit (Bld) [Volume fraction] 35.9 % Critically low 36.0-48.0 [facility] Comment on above: Performed By: #### C BC #### [facility] [address] [place] [address] Dr. Jose Holley Hemoglobin (Bld) [Mass/Vol] 12.1 g/dL Normal 12.0-16.0 [facility] Comment on above: Performed By: #### C BC #### [facility] [address] [place] [address] Dr. Jose Holley TSHon 06-05-2022 TSH 2.520 uIU/mL Normal 0.358-3.740 [facility] Comment on above: Performed By: #### T SH #### [facility] [address] [place] [address] Dr. Jose Holley FREE T4on 04-10-2022 Free T4 [Mass/Vol] 1.08 ng/dL Normal 0.76-1.46 [facility] Comment on above: Performed By: #### C BC #### [facility] [address] [place] [address] Dr. Jose Holley TSHon 04-10-2022 TSH 2.371 uIU/mL Normal 0.358-3.740 [facility] Comment on above: Performed By: #### T SH #### [facility] [address] [place] [address] Dr. Jose Holley HEP B SURFACE ANTIGEN SCREEN on 02-05-2022 HBsAg Screen Negative Normal Negative [facility] Comment on above: Performed By: #### C BC #### [facility] [address] [place] [address] Dr. Jose Holley HIV 1 AND 2 WITH REFLEXon HIV Screen 4th Generation wRfx Non-Reactive Normal Non Reactive [facility] Comment on above: Result Comment: HIV Negative HIV-1/HIV-2 antibodies and HIV-1 p24 antigen were NOT detected. There is no laboratory evidence of HIV infection. Performed By: #### H IV12 #### [facility] [address] [place] [address] Dr. Jose Holley RPR QUANTon 02-05-2022 Rapid Plasma Reagin, Quant Non-Reactive Normal NonRea<1:1 [facility] Comment on above: Result Comment: Yordy david Note: This test does not meet current guidelines for screening and diagnosis of syphilis. This test is intended for following treatment response in patients being treated for syphilis infection. To screen for syphilis infection, a reflex cascade that includes both RPR and a treponema-specific assay should be utilized, such as Treponema pallidum (Syphilis) Screening [place] (670479) or Rapid Plasma Reagin (RPR) Test With Reflex to Quantitative RPR and Confirmatory Treponema pallidum Antibodies (448304). Performed By: #### C BC #### [facility] [address] [place] [address] Dr. Jose Holley RUBELLA AB IGGon 02-05-2022 Rubella Antibodies, IgG 25.80 index Normal Immune >0.99 [facility] Comment on above: Result Comment: Non- immune <0.90 Equivocal 0.90 - 0.99 Immune >0.99 Performed By: #### R UBIGG #### [facility] [address] [place] [address] Dr. Jose Holley CBC AUTO DIFFon 02-04-2022 BASO # 0.1 103/ul Normal 0.0-0.1 [facility] Comment on above: Performed By: #### C BC #### [facility] [address] [place] [address] Dr. Jose Holley Basophils/100 WBC (Bld) 0.5 % Normal 0.2-2.0 [facility] Comment on above: Performed By: #### C BC #### [facility] [address] [place] [address] Dr. Jose Holley EO # 0.2 103/ul Normal 0.0-0.7 [facility] Comment on above: Performed By: #### C BC #### [facility] [address] [place] [address] Dr. Jose Holley Eosinophils/100 WBC (Bld) 2.1 % Normal 0.9-7.0 [facility] Comment on above: Performed By: #### C BC #### [facility] [address] [place] [address] Dr. Jose Holley Erythrocyte distribution width (RBC) [Ratio] 12.6 % Normal 11.0-15.0 [facility] Comment on above: Performed By: #### C BC #### [facility] [address] [place] [address] Dr. Jose Holley Hematocrit (Bld) [Volume fraction] 41.5 % Normal 36.0-48.0 [facility] Comment on above: Performed By: #### C BC #### [facility] [address] [place] [address] Dr. Jose Holley Hemoglobin (Bld) [Mass/Vol] 14.0 g/dL Normal 12.0-16.0 [facility] Comment on above: Performed By: #### C BC #### [facility] [address] [place] [address] Dr. Jose Holley IG # 0.08 10e3/ul Critically high 0.00-0.03 [facility] Comment on above: Performed By: #### C BC #### [facility] [address] [place] [address] Dr. Jose Holley IG % 0.7 % Critically high 0.0-0.5 [facility] Comment on above: Performed By: #### C BC #### [facility] [address] [place] [address] Dr. Jose Holley LYMPH # 2.0 103/ul Normal 1.2-3.8 [facility] Comment on above: Performed By: #### C BC #### [facility] [address] [place] [address] Dr. Jose Holley Lymphocytes/100 WBC (Bld) 18.5 % Critically low 20.5-60.0 [facility] Comment on above: Performed By: #### C BC #### [facility] [address] [place] [address] Dr. Jose Holley MANUAL DIFF REQ NO Normal [facility] Comment on above: Performed By: #### C BC #### [facility] [address] [place] [address] Dr. Jose Holley MCH (RBC) [Entitic mass] 31.3 pg Normal 26.7-34.0 [facility] Comment on above: Performed By: #### C BC #### [facility] [address] [address] [address] Jose Holley MCHC (RBC) [Mass/Vol] 33.7 g/dL Normal 29.9-35.2 [facility] Comment on above: Performed By: #### C BC #### [facility] [address] [place] [address] Dr. Jose Holley MCV (RBC) [Entitic vol] 92.8 fL Normal 81.0-99.0 [facility] Comment on above: Performed By: #### C BC #### [facility] [address] [place] [address] Dr. Jose Holley MONO # 0.5 103/ul Normal 0.3-0.8 [facility] Comment on above: Performed By: #### C BC #### [facility] [address] [place] [address] Dr. Jose Holley Monocytes/100 WBC (Bld) 4.7 % Normal 1.7-12.0 [facility] Comment on above: Performed By: #### C BC #### [facility] [address] [place] [address] Dr. Jose Holley NEUT # 8.1 103/ul Critically high 1.4-6.5 [facility] Comment on above: Performed By: #### C BC #### [facility] [address] [place] [address] Dr. Jose Holley Neutrophils/100 WBC (Bld) 73.5 % Normal 43.0-75.0 [facility] Comment on above: Performed By: #### C BC #### [facility] [address] [place] [address] Dr. Jose Holley Platelet mean volume (Bld) [Entitic vol] 10.6 fL Normal 9.5-13.5 [facility] Comment on above: Performed By: #### C BC #### [facility] [address] [place] [address] Dr. Jose Holley PLT 261 103/ul Normal 150-450 [facility] Comment on above: Performed By: #### C BC #### [facility] [address], [place] [address] Dr. Jose Holley RBC 4.47 106/ul Normal 4.20-5.40 [facility] Comment on above: Performed By: #### C BC #### [facility] [address], [place] [address] Dr. Jose Holley WBC 11.0 103/ul Normal 4.0-11.0 [facility] Comment on above: Performed By: #### C BC #### [facility] [address] [address] [address] Jose Holley CULTURE URINEon 02-04-2022 CULTURE URINE Culture Observations : LIGHT GROWTH OF MIXED GENITAL LASHELL. NO POTENTIAL PATHOGENS SEEN. Normal [facility] Comment on above: Performed By: #### C BC #### [facility] [address] [address] [address] Jose Holley TYPE AND SCREENon 02-04-2022 TYPE AND SCREEN Negative Normal [facility] Comment on above: Performed By: #### C BC #### [facility] [address] [address] [address] Jose Holley No Panel Informationon 01-10 Please click on the link to view the study images Normal VF-GFNZH-Jvd man 310 IVF Work Phone: Normal UV-CKCNN-CWE 7th [place] Work Phone: HCG, Beta Quantitativeon HCG.beta subunit Qn 4018 m[IU]/mL Abnormal MG -OBGYN-Ris man 310 IVF Work Phone: Comment on above: Low-level positive H CG results can be seen in early , in zulema- or post-menopausal females due to normal pituitary HCG production, or with analytic interference. Repeat testing in 48-72 hours can aid in assessing for as results should double in this time period. FSH measurement is recommended in zulema- or post-menopausal females as concurrent elevation of FSH can support pituitary production as the source of the HCG elevation.. Total HCG measurement is performed using the [employer] Access Immunoassay which detects intact HCG and free beta HCG subunit. This test is not indicated for use as a tumor marker. HCG testing is performed using a different test methodology at [facility] than other [facility]. Direct result comparison should only be made within the same method. REF VALUESNON FEMALE <5MALES <5 Laboratory - Chemistry and C hemistry - challengeon 12-28-2021 TSH Qn Canceled MP-[employer]al Equipment Mechanic natanael-Mary 2100 DO Work Phone: Comment on above: TSH testing is perfo rmed using different testing methodology at [facility] than at other [facility]. Direct result comparisons should only be made within the same method. TSH Qn 3.47 m[IU]/L See Below FG-TEHWB-Mop man 310 IVF Work Phone: Comment on above: Reference Range: 0.4 4 - 3.98 TSH testing is performed using different testing methodology at [facility] than at other [facility]. Direct result comparisons should only be made within the same method. 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 We will call you with results and further recommendations. Continue HyQvia 50 g monthly infusions as scheduled. Follow up in 6 months or sooner if symptoms worsen prior. By signing my name below, I, Ervin Weiner, attest that this documentation has been prepared under the direction and in the presence of Flakita Antonio MD. All medical record entries made by the Scribe were at my direction and personally dictated by me. I have reviewed the chart and agree that the record accurately reflects my personal performance of the history, physical exam, discussion and plan. 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 Started HyQvia 50 g monthly May-June 2021 and missed 3 month FUV, but Sep is 3rd month and she is due next week. She is 5 weeks and is on prednisone to avoid miscarriage. I suggested injecting thighs instead of abdomen as progresses. She will have IgG level. We will call you with results and further recommendations. Continue HyQvia 50 g monthly infusions as scheduled. Follow up in 6 months or sooner if symptoms worsen prior. Moderate risk of disease progression exists. Chief Complaint Followup for HyQvia followup History of Present Illness Since last visit, 04/24/2021, patient started HyQvia 50 g monthly around May-June and she did not return for her 3 month visit. Sep is her 3rd month and she is due next week. She states the infusions are going well but she does have bloating for 2-3 days and erythema at her injection site, but they resolve on their own. She has had viral illnesses but denies any true infections and has not required antibiotics. She is 5 weeks per frozen embryo transfer. 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 She was on steroids with her daughter and carried full term compared to never carrying past 9 weeks. Her daughter is currently 2 years old. Her daughter is sick frequently and patient states she has no immune system. She follows with Dr. Maldonado. 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 Review of Systems See attached Review of Systems in HPI. 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) Encounter for preconception consultation (V26.49) (Z31.69) Encounter to determine viability of (V23.87) (O36.80X0) Endometriosis (617.9) (N80.9) Female infertility (628.9) (N97.9) Fertility testing (V26.21) (Z31.41) demise due to miscarriage (634.90) (O03.9) GERD (gastroesophageal reflux disease) (530.81) (K21.9) History of Crohn's disease (V12.70) (Z87.19) Hypertension (401.9) (I10) Immune deficiency disorder (279.3) (D84.9) Pap smear for cervical cancer screening (V76.2) (Z12.4) Positive blood test (V72.42) (Z32.01) examination or test, unconfirmed (V72.40) (Z32.00) Psychological factors affecting medical condition (316) (F54) Recurrent loss with current (646.33) (O26.20) Recurrent loss without current (629.81) (N96) Recurrent sinusitis (473.9) (J32.9) Routine screening for STI (sexually transmitted infection) (V74.5) (Z11.3) Scapular dyskinesis (781.3) (G25.89) Screening for breast cancer (V76.10) (Z12.39) Screening for diabetes mellitus (V77.1) (Z13.1) Screening for human immunodeficiency virus (V73.89) (Z11.4) Screening for thyroid disorder (V77.0) (Z13.29) Somatic dysfunction of cervical region (739.1) (M99.01) Somatic dysfunction of head region (739.0) (M99.00) Somatic dysfunction of rib (739.8) (M99.08) Somatic dysfunction of thoracic region (739.2) (M99.02) Somatic dysfunction of upper extremity (739.7) (M99.07) Spontaneous miscarriage (634.90) (O03.9) 9 wk [facility] 11/02/2018 Steroid long-term use (V58.65) Strain of rhomboid muscle, subsequent encounter (V58.89,847.1) (S29.012D) Subchorionic hematoma in first trimester (656.73) (O41.8X10,O46.8X1) Subclinical hypothyroidism (244.8) (E03.8) Urgency of urination (788.63) (R39.15) Urinary tract infection (599.0) (N39.0) UTI in (646.60,599.0) (O23.40) 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 Normal [facility] HCG, Beta Quantitativeon HCG.beta subunit Qn 191 m[IU]/mL Abnormal MG- OBGYN-Ris man 310 IVF Work Phone: Comment on above: Low-level positive H CG results can be seen in early , in zulema- or post-menopausal females due to normal pituitary HCG production, or with analytic interference. Repeat testing in 48-72 hours can aid in assessing for as results should double in this time period. FSH measurement is recommended in zulema- or post-menopausal females as concurrent elevation of FSH can support pituitary production as the source of the HCG elevation.. Total HCG measurement is performed using the [employer] Access Immunoassay which detects intact HCG and free beta HCG subunit. This test is not indicated for use as a tumor marker. HCG testing is performed using a different test methodology at [facility] than other [facility]. Direct result comparison should only be made within the same method. 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) (E28.39) Encounter for preconception consultation (V26.49) (Z31.69) Encounter to determine viability of (V23.87) (O36.80X0) Endometriosis (617.9) (N80.9) Female infertility (628.9) (N97.9) Fertility testing (V26.21) (Z31.41) demise due to miscarriage (634.90) (O03.9) GERD (gastroesophageal reflux disease) (530.81) (K21.9) History of Crohn's disease (V12.70) (Z87.19) Hypertension (401.9) (I10) Hypogammaglobulinemia (279.00) (D80.1) Immune deficiency disorder (279.3) (D84.9) Pap smear for cervical cancer screening (V76.2) (Z12.4) examination or test, unconfirmed (V72.40) (Z32.00) Psychological factors affecting medical condition (316) (F54) Recurrent loss with current (646.33) (O26.20) Recurrent loss without current (629.81) (N96) Recurrent sinusitis (473.9) (J32.9) Routine screening for STI (sexually transmitted infection) (V74.5) (Z11.3) Scapular dyskinesis (781.3) (G25.89) Screening for breast cancer (V76.10) (Z12.39) Screening for diabetes mellitus (V77.1) (Z13.1) Screening for human immunodeficiency virus (V73.89) (Z11.4) Screening for thyroid disorder (V77.0) (Z13.29) Somatic dysfunction of cervical region (739.1) (M99.01) Somatic dysfunction of head region (739.0) (M99.00) Somatic dysfunction of rib (739.8) (M99.08) Somatic dysfunction of thoracic region (739.2) (M99.02) Somatic dysfunction of upper extremity (739.7) (M99.07) Spontaneous miscarriage (634.90) (O03.9) 9 wk [facility] 11/02/2018 Steroid long-term use (V58.65) Strain of rhomboid muscle, subsequent encounter (V58.89,847.1) (S29.012D) Subchorionic hematoma in first trimester (656.73) (O41.8X10,O46.8X1) Subclinical hypothyroidism (244.8) (E03.8) Urgency of urination (788.63) (R39.15) Urinary tract infection (599.0) (N39.0) UTI in (646.60,599.0) (O23.40) 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) Visit for screening mammogram (V76.12) (Z12.31) Past Medical History Problems History of Acute tonsillitis (463) (J03.90) Resolved Date: 02 Nov 2018 History of Anxiety and depression (300.00,311) (F41.9,F32.A) History of amenorrhea (V13.29) (Z87.42) Resolved Date: 03 Nov 2018 History of chronic endometritis (V13.29) (Z87.42) Resolved Date: 22 Dec 2016 History of cough Resolved Date: 02 Nov 2018 History of Crohn's disease (V12.70) (Z87.19) Resolved Date: 20 Apr 2020 History of migraine (V12.49) (Z86.69) History of (V13.29) Resolved Date: 30 Jan 2017 History of seasonal allergies (V15.09) (Z88.9) History of In vitro fertilization (V26.81) (Z31.83) History of Post-operative pain (338.18) (G89.18) Resolved Date: 18 Apr 2016 History of with history of infertility in first trimester (V23.0) (O09.01) Resolved Date: 30 Jan 2017 History of Routine screening for STI (sexually transmitted infection) (V74.5) (Z11.3) Resolved Date: 18 Jul 2021 History of Yeast infection (112.9) (B37.9) Resolved Date: 02 Nov 2018 Surgical History Problems History of Cholecystectomy Laparoscopic History of Dilation and curettage History of Exploratory Laparoscopy For pelvic pain--> no evidence of endometriosis. Was then diagnosed with Crohn's disease. 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 No Known Drug Allergies Recorded By: Yanni Quinteros; 06/21/2013 11:04:22 AM Current Meds Medication NameInstruction Aspirin 81 MG Oral Tablet Delayed ReleaseTAKE 2 TABLET Daily Endometrin 100 MG Vaginal InsertINSERT 1 SUPP Twice daily Enoxaparin Sodium 60 MG/0.6ML Injection Solution Prefilled SyringeINJECT 60 MG Daily Estradiol 2 MG Oral TabletTAKE 1 TABLET 3 times daily Fluticasone Propionate 50 MCG/ACT Nasal Suspension Letrozole 2.5 MG Oral Tablettake 2 tablets by mouth every day Levothyroxine Sodium 50 MCG Oral TabletTAKE 1 TABLET BY MOUTH EVERY DAY Lidocaine-Prilocaine 2.5-2.5 % External CreamAPPLY 1 HOUR BEFORE PROC (more content not included)... Normal [facility]works Progesterone, Serumon 2021 Progesterone [Mass/Vol] 26.6 ng/mL [id number] man 310 IVF Work Phone: Comment on above: Progesterone is perf ormed using the [employer] Access Immunoassay. Progesterone testing is performed using a different test methodology at [facility] than other [facility]. Direct result comparison should only be made within the same method.REF VALUESMALE <0.2-0.8 FOLLICULAR PHASE <0.2-1.5 LUTEAL PHASE 7.4-15.4 POSTMENOPAUSAL <0.2-0.2 1ST TRIMESTER 12.0-84.0 2ND TRIMESTER 10.2-58.8 3RD TRIMESTER 46.5-160 Estradiol, Serumon 2 E2 [Mass/Vol] 348 pg/mL MG-OBGYN-Ri s man 310 IVF Work Phone: Comment on above: Estradiol measuremen t is performed using the [employer] Access Estradiol Immunoassay. Estradiol testing is performed using a different test methodology at [facility] than other [facility]. Direct result comparison should only be made within the same method.REF VALUESFOLLICULAR PHASE 20-144MID CYCLE 64-357LUTEAL PHASE 56-214POSTMENOPAUSE < 32PREPUBERTY < 20FEMALE 10-18Y 8-110MALE 10-18Y < 20ADULT MALE < 40 Laboratory - Chemistry and C hemistry - challengeon 12-04-2021 TSH Qn 1.77 m[IU]/L See Below [facility]arm[facility] Work Phone: Comment on above: Reference Range: 0.4 4 - 3.98 TSH testing is performed using different testing methodology at [facility] than at other [facility]. Direct result comparisons should only be made within the same method. No Panel Informationon 12-04 Please click on the link to view the study images Normal [facility] Work Phone: Progesterone, Serumon 2021 Progesterone [Mass/Vol] 0.1 ng/mL [facility] Work Phone: Comment on above: Progesterone is perf ormed using the [employer] Access Immunoassay. Progesterone testing is performed using a different test methodology at [facility] than other [facility]. Direct result comparison should only be made within the same method.REF VALUESMALE <0.2-0.8 FOLLICULAR PHASE <0.2-1.5 LUTEAL PHASE 7.4-15.4 POSTMENOPAUSAL <0.2-0.2 1ST TRIMESTER 12.0-84.0 2ND TRIMESTER 10.2-58.8 3RD TRIMESTER 46.5-160 CBC AUTO DIFFon 11-15-2021 BASO # 0.1 103/ul Normal 0.0-0.1 [facility] Comment on above: Performed By: #### C BC #### [facility] [address] [place] [address] Dr. Jose Holley Basophils/100 WBC (Bld) 0.8 % Normal 0.2-2.0 [facility] Comment on above: Performed By: #### C BC #### [facility] [address] [place] [address] Dr. Jose Holley EO # 0.1 103/ul Normal 0.0-0.7 [facility] Comment on above: Performed By: #### C BC #### [facility] [address] [place] [address] Dr. Jose Holley Eosinophils/100 WBC (Bld) 0.9 % Normal 0.9-7.0 [facility] Comment on above: Performed By: #### C BC #### [facility] [address] [place] [address] Dr. Jose Holley Erythrocyte distribution width (RBC) [Ratio] 13.9 % Normal 11.0-15.0 [facility] Comment on above: Performed By: #### C BC #### [facility] [address] [place] [address] Dr. Jose Holley Hematocrit (Bld) [Volume fraction] 41.8 % Normal 36.0-48.0 [facility] Comment on above: Performed By: #### C BC #### [facility] [address] [place] [address] Dr. Jose Holley Hemoglobin (Bld) [Mass/Vol] 14.0 g/dL Normal 12.0-16.0 [facility] Comment on above: Performed By: #### C BC #### [facility] [address] [place] [address] Dr. Jose Holley IG # 0.02 10e3/ul Normal 0.00-0.03 [facility] Comment on above: Performed By: #### C BC #### [facility] [address] [place] [address] Dr. Jose Holley IG % 0.2 % Normal 0.0-0.5 [facility] Comment on above: Performed By: #### C BC #### [facility] [address] [place] [address] Dr. Jose Holley LYMPH # 1.7 103/ul Normal 1.2-3.8 [facility] Comment on above: Performed By: #### C BC #### [facility] [address] [place] [address] Dr. Jose Holley Lymphocytes/100 WBC (Bld) 19.9 % Critically low 20.5-60.0 [facility] Comment on above: Performed By: #### C BC #### [facility] [address] [place] [address] Dr. Jose Holley MANUAL DIFF REQ NO Normal [facility] Comment on above: Performed By: #### C BC #### [facility] [address] [place] [address] Dr. Jose Holley MCH (RBC) [Entitic mass] 30.7 pg Normal 26.7-34.0 [facility] Comment on above: Performed By: #### C BC #### [facility] [address] [place] [address] Dr. Jose Holley MCHC (RBC) [Mass/Vol] 33.5 g/dL Normal 29.9-35.2 [facility] Comment on above: Performed By: #### C BC #### [facility] [address] [place] [address] Dr. Jose Holley MCV (RBC) [Entitic vol] 91.7 fL Normal 81.0-99.0 [facility] Comment on above: Performed By: #### C BC #### [facility] [address] [place] [address] Dr. Jose Holley MONO # 0.6 103/ul Normal 0.3-0.8 [facility] Comment on above: Performed By: #### C BC #### [facility] [address] [place] [address] Dr. Jose Holley Monocytes/100 WBC (Bld) 6.5 % Normal 1.7-12.0 [facility] Comment on above: Performed By: #### C BC #### [facility] [address] [place] [address] Dr. Jose Holley NEUT # 6.2 103/ul Normal 1.4-6.5 [facility] Comment on above: Performed By: #### C BC #### [facility] [address] [place] [address] Dr. Jose Holley Neutrophils/100 WBC (Bld) 71.7 % Normal 43.0-75.0 [facility] Comment on above: Performed By: #### C BC #### [facility] [address] [place] [address] Dr. Jose Holley Platelet mean volume (Bld) [Entitic vol] 10.7 fL Normal 9.5-13.5 [facility] Comment on above: Performed By: #### C BC #### [facility] [address] [place] [address] Dr. Jose Holley PLT 230 103/ul Normal 150-450 [facility] Comment on above: Performed By: #### C BC #### [facility] [address] [place] [address] Dr. Jose Holley RBC 4.56 106/ul Normal 4.20-5.40 [facility] Comment on above: Performed By: #### C BC #### [facility] [address] [place] [address] Dr. Jose Holley WBC 8.7 103/ul Normal 4.0-11.0 [facility] Comment on above: Performed By: #### C BC #### [facility] [address] [place] [address] Dr. Jose Holley LIPID PROFILEon 11-15-2021 CHOL-HDL RATIO NORM SEE BELOW Normal [facility] Comment on above: Result Comment: 3.3 - 4.4 LOW RISK 4.4 - 7.1 AVERAGE RISK 7.1 - 11.0 MODERATE RISK >11.0 HIGH RISK Performed By: #### C MP, LIPID #### [facility] [address] [place] [address] Dr. Jose Holley Cholesterol [Mass/Vol] 178 mg/dL Normal <=200 [facility] Comment on above: Performed By: #### C MP, LIPID #### [facility] [address] [place] [address] Dr. Jose Holley Cholesterol in HDL [Mass/Vol] 43 mg/dL Normal 40-60 [facility] Comment on above: Performed By: #### C MP, LIPID #### [facility] [address] [place] [address] Dr. Jose Holley Cholesterol in LDL [Mass/Vol] 120.4 mg/dL Normal [facility] Comment on above: Performed By: #### C MP, LIPID #### [facility] [address] [place] [address] Dr. Jose Holley Cholesterol.total/C holesterol in HDL [Mass ratio] 4.1 {ratio} Normal [facility] Comment on above: Performed By: #### C MP, LIPID #### [facility] [address] [address] [address] Jose Holley HDL NORMAL > or = 60 mg/dl - LO W CARDIOVASCULAR RISK <40 mg/dl - HIGH CARDIOVASCULAR RISK Normal [facility] Comment on above: Performed By: #### C MP, LIPID #### [facility] [address] [address] [address] Jose Holley LDL CALC NORMAL SEE BELOW Normal [facility] Comment on above: Result Comment: <100 mg/dl OPTIMAL 100 - 129 mg/dl NEAR OR ABOVE OPTIMAL 130 - 159 mg/dl BORDERLINE HIGH 160 - 189 mg/dl HIGH >190 mg/dl VERY HIGH Performed By: #### C MP, LIPID #### [facility] [address] [address] [address] Jose Holley Triglyceride [Mass/Vol] 73 mg/dL Normal <=150 [facility] Comment on above: Performed By: #### C MP, LIPID #### [facility] [address] [address] [address] Jose Holley VLDL CALC 14.6 mg/dL Normal [facility] Comment on above: Performed By: #### C MP, LIPID #### [facility] [address] [address] [address] Jose Holley PROF 14(COMP METB)on 022 Albumin [Mass/Vol] 3.5 g/dL Normal 3.4-5.0 [facility] Comment on above: Performed By: #### C MP, LIPID #### [facility] [address] [address] [address] Jose Holley Albumin/Globulin [Mass ratio] 0.8 {ratio} Normal [facility] Comment on above: Performed By: #### C MP, LIPID #### [facility] [address] [address] [address] Jose Holley ALP [Catalytic activity/Vol] 51 U/L Normal 46-116 [facility] Comment on above: Performed By: #### C MP, LIPID #### [facility] [address] [address] [address] Jose Holley ALT [Catalytic activity/Vol] 27 U/L Normal 14-59 [facility] Comment on above: Performed By: #### C MP, LIPID #### [facility] [address] [address] [address] Jose Holley Anion gap [Moles/Vol] 11.5 mmol/L Normal [facility] Comment on above: Performed By: #### C MP, LIPID #### [facility] [address] [address] [address] Jose Holley AST [Catalytic activity/Vol] 18 U/L Normal 15-37 [facility] Comment on above: Performed By: #### C MP, LIPID #### [facility] [address] [place] [address] Dr. Jose Holley Bilirubin [Mass/Vol] 0.2 mg/dL Normal 0.2-1.0 [facility] Comment on above: Performed By: #### C MP, LIPID #### [facility] [address] [place] [address] Dr. Jose Holley Calcium [Mass/Vol] 8.5 mg/dL Normal 8.5-10.1 [facility] Comment on above: Performed By: #### C MP, LIPID #### [facility] [address] [address] [address] Jose Holley Chloride [Moles/Vol] 105 mmol/L Normal 98-107 [facility] Comment on above: Performed By: #### C MP, LIPID #### [facility] [address] [address] [address] Jose Holley CO2 [Moles/Vol] 24.5 mmol/L Normal 21.0-32.0 [facility] Comment on above: Performed By: #### C MP, LIPID #### [facility] [address] [address] [address] Jose Holley Creatinine [Mass/Vol] 0.77 mg/dL Normal 0.55-1.02 [facility] Comment on above: Performed By: #### C MP, LIPID #### [facility] [address] [address] [address] Jose Holley EGFR-AF GRENADIAN >60 Normal >=60 [facility] Comment on above: Performed By: #### C MP, LIPID #### [facility] [address] [address] [address] Jose Holley EGFR-NON AF GRENADIAN >60 Normal >=60 [facility] Comment on above: Performed By: #### C MP, LIPID #### [facility] [address] [address] [address] Jose Holley Globulin (S) [Mass/Vol] 4.2 g/dL Normal [facility] Comment on above: Performed By: #### C MP, LIPID #### [facility] [address] [place] [address] Dr. Jose Holley Glucose [Mass/Vol] 89 mg/dL Normal 74-106 [facility] Comment on above: Performed By: #### C MP, LIPID #### [facility] [address] [address] [address] Jose Holley Potassium [Moles/Vol] 4.0 mmol/L Normal 3.5-5.1 [facility] Comment on above: Performed By: #### C MP, LIPID #### [facility] [address] [address] [address] Jose Holley Protein [Mass/Vol] 7.7 g/dL Normal 6.4-8.2 [facility] Comment on above: Performed By: #### C MP, LIPID #### [facility] [address] [address] [address] Jose Holley Sodium [Moles/Vol] 137 mmol/L Normal 136-145 [facility] Comment on above: Performed By: #### C MP, LIPID #### [facility] [address] [address] [address] Jose Holley Urea nitrogen [Mass/Vol] 18.0 mg/dL Normal 7.0-18.0 [facility] Comment on above: Performed By: #### C MP, LIPID #### [facility] [address] [place], [place] [address] Dr. Jose Holley Urea nitrogen/Creatinine [Mass ratio] 23.4 mg/mg Normal [facility] Comment on above: Performed By: #### C MP, LIPID #### [facility] [address] [place], [place] [address] Dr[address] Jose Holley TSHon 11-15-2021 TSH 2.686 uIU/mL Normal 0.358-3.740 [facility] Comment on above: Performed By: #### T SH #### [facility] [address] [place], [place] [address] Dr[address] 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1) Immune deficiency disorder (279.3) (D84.9) Pap smear for cervical cancer screening (V76.2) (Z12.4) Psychological factors affecting medical condition (316) (F54) Recurrent loss with current (646.33) (O26.20) Recurrent loss without current (629.81) (N96) Recurrent sinusitis (473.9) (J32.9) Routine screening for STI (sexually transmitted infection) (V74.5) (Z11.3) Scapular dyskinesis (781.3) (G25.89) Screening for breast cancer (V76.10) (Z12.39) Screening for diabetes mellitus (V77.1) (Z13.1) Screening for human immunodeficiency virus (V73.89) (Z11.4) Screening for thyroid disorder (V77.0) (Z13.29) Somatic dysfunction of cervical region (739.1) (M99.01) Somatic dysfunction of head region (739.0) (M99.00) Somatic dysfunction of rib (739.8) (M99.08) Somatic dysfunction of thoracic region (739.2) (M99.02) Somatic dysfunction of upper extremity (739.7) (M99.07) Spontaneous miscarriage (634.90) (O03.9) 9 wk [facility] 11/02/2018 Steroid long-term use (V58.65) Strain of rhomboid muscle, subsequent encounter (V58.89,847.1) (S29.012D) Subchorionic hematoma in first trimester (656.73) (O41.8X10,O46.8X1) Subclinical hypothyroidism (244.8) (E03.8) Urgency of urination (788.63) (R39.15) Urinary tract infection (599.0) (N39.0) UTI in (646.60,599.0) (O23.40) 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) Visit for screening mammogram (V76.12) (Z12.31) Past Medical History Problems History of Acute tonsillitis (463) (J03.90) Resolved Date: 02 Nov 2018 History of Anxiety and depression (300.00,311) (F41.9,F32.A) History of amenorrhea (V13.29) (Z87.42) Resolved Date: 03 Nov 2018 History of chronic endometritis (V13.29) (Z87.42) Resolved Date: 22 Dec 2016 History of cough Resolved Date: 02 Nov 2018 History of Crohn's disease (V12.70) (Z87.19) Resolved Date: 20 Apr 2020 History of migraine (V12.49) (Z86.69) History of (V13.29) Resolved Date: 30 Jan 2017 History of seasonal allergies (V15.09) (Z88.9) History of In vitro fertilization (V26.81) (Z31.83) History of Post-operative pain (338.18) (G89.18) Resolved Date: 18 Apr 2016 History of with history of infertility in first trimester (V23.0) (O09.01) Resolved Date: 30 Jan 2017 History of Routine screening for STI (sexually transmitted infection) (V74.5) (Z11.3) Resolved Date: 18 Jul 2021 History of Yeast infection (112.9) (B37.9) Resolved Date: 02 Nov 2018 Surgical History Problems History of Cholecystectomy Laparoscopic History of Dilation and curettage History of Exploratory Laparoscopy For pelvic pain--> no evidence of endometriosis. Was then diagnosed with Crohn's disease. 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 No Known Drug Allergies Recorded By: Yanni Quinteros; 06/21/2013 11:04:22 AM Current Meds Medication NameInstruction Aspirin 81 MG Oral Tablet Delayed ReleaseTAKE 2 TABLET Daily Endometrin 100 MG Vaginal InsertINSERT 1 SUPP Twice daily Enoxaparin Sodium 60 MG/0.6ML Injection Solution Prefilled SyringeINJECT 60 MG Daily Estradiol 2 MG Oral TabletTAKE 1 TABLET 3 times daily Fluticasone Propionate 50 MCG/ACT Nasal Suspension Letrozole 2.5 MG Oral TabletTAKE 2 TABLET Daily Levothyroxine Sodium 50 MCG Oral Tablet (Synthroid)TAKE 1 TABLET BY MOUTH EVERY DAY Lidocaine-Prilocaine 2.5-2.5 % External CreamAPPLY 1 HOUR BEFORE PROCEDURE DIRECTED. Lup (more content not included)... Normal [facility] Chart Updateon 09-21-2021 Chart Update Chart Update Pt presented for pap but could not obtain as pt was day 1 of menses. Will plan to obtain pap at hysteroscopy. Zari Oviedo CNP 09/21/2021 16:15 Signatures Electronically signed by : RONA Pelayo; Sep 21 2021 4:15PM EST (Author) Normal [facility] [employer] - Office Visiton 08-30 [employer] - Office Visit No report was sent Normal [facility] Tobacco Screening.on 022 Fall risk assessment a) No falls within the last year [id number] man 320 Work Phone: Last menstrual period start date 22Aug2021 [id number] man 320 Work Phone: Tobacco use status CPHS b) No [id number] man 320 Work Phone: Chart Updateon 09-12-2021 Chart Update Chart Update Spoke to patient regarding SIS results, small piece of endometrium noted. Recommend follow up diagnostic hysteroscopy, patient agrees. She will call with menses, okay to schedule anytime on Lupron if no menses. Clotilde Espinosa MD 09/12/2021 11:05 Signatures Electronically signed by : Clotilde Espinosa MD; Sep 12 2021 11:05AM EST (Author) Normal [facility] HCG, Beta Quantitativeon HCG.beta subunit Qn m[IU]/mL -SEXER-Technical Maintenance Technician cker 206A IVF Work Phone: Comment on above: Low-level positive H CG results can be seen in early , in zulema- or post-menopausal females due to normal pituitary HCG production, or with analytic interference. Repeat testing in 48-72 hours can aid in assessing for as results should double in this time period. FSH measurement is recommended in zluema- or post-menopausal females as concurrent elevation of FSH can support pituitary production as the source of the HCG elevation.. Total HCG measurement is performed using the Nhan Malcolm Access Immunoassay which detects intact HCG and free beta HCG subunit. This test is not indicated for use as a tumor marker. HCG testing is performed using a different test methodology at [facility] than other [facility]. Direct result comparison should only be made within the same method. REF VALUESNON FEMALE <5MALES <5 Progesterone, Serumon 2021 Progesterone [Mass/Vol] 8.1 ng/mL [id number]-Mpi cker 206A IVF Work Phone: Comment on above: Progesterone is perf ormed using the Nhan Malcolm Access Immunoassay. Progesterone testing is performed using a different test methodology at [facility] than other [facility]. Direct result comparison should only be made within the same method.REF VALUESMALE <0.2-0.8 FOLLICULAR PHASE <0.2-1.5 LUTEAL PHASE 7.4-15.4 POSTMENOPAUSAL <0.2-0.2 1ST TRIMESTER 12.0-84.0 2ND TRIMESTER 10.2-58.8 3RD TRIMESTER 46.5-160 Chart Updateon 08-31-2021 Chart Update Orders Subclinical hypothyroidism Start: Levothyroxine Sodium 50 MCG Oral Tablet (Synthroid); TAKE 1 TABLET DAILY Rx By: Zari Oviedo; Dispense: 30 Days ; #:30 Tablet; Refill: 2;For: Subclinical hypothyroidism; GUERA = N; Verified Transmission to [id number]; Last Updated By: Opsona; 08/31/2021 2:17:16 PM TSH WITH REFLEX TO FREE T4 IF ABNORMAL; Status:Active; Requested for:31Aug2021; Perform:Lab Services - Lab To Draw (Blood Test); Due:29Nov2021;Ordered; For:Subclinical hypothyroidism; Ordered By:Zari Oviedo; Chart Update Discussed elevated TSH and diagnosis of subclinical hypothyroidism. pt was previously on Synthroid 50 mcg PO daily but took herself off this medication after delivery of daughter. Pt will restart Synthroid 50 mcg PO daily and repeat TSH in 4-6 weeks. pt verbalized understanding. Pt also needs to get set up for suppression protocol. Will plan to check CD 21 p4 for 1 month Depo Lupron injection followed by letrozole, pt will do a total of 2 doses of lupron (2 total months) and remain on letrozole daily the entire time for planned FET in October 2021. 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 3D reconstruction demonstrates a normal contour of the endometrial cavity. Discussed above results with pt, pt will meet with Clarisa Lujan RN in office today to review and schedule CD 21 p4 for Depo Lupron start. Provider Impressions The endometrial cavity fills without any evidence of filling defects. 3D reconstruction demonstrates a normal contour of the endometrial cavity. Discussed above results with pt, pt will meet with Clarisa Lujan RN in office today to review and schedule CD 21 p4 for Depo Lupron start. 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.39,628.0) (E28.39) Encounter for preconception consultation (V26.49) (Z31.69) Encounter to determine viability of (V23.87) (O36.80X0) Female infertility (628.9) (N97.9) demise due to miscarriage (634.90) (O03.9) GERD (gastroesophageal reflux disease) (530.81) (K21.9) History of Crohn's disease (V12.70) (Z87.19) Hypertension (401.9) (I10) Hypogammaglobulinemia (279.00) (D80.1) Immune deficiency disorder (279.3) (D84.9) Psychological factors affecting medical condition (316) (F54) Recurrent loss with current (646.33) (O26.20) Recurrent loss without current (629.81) (N96) Recurrent sinusitis (473.9) (J32.9) Routine screening for STI (sexually transmitted infection) (V74.5) (Z11.3) Scapular dyskinesis (781.3) (G25.89) Screening for breast cancer (V76.10) (Z12.39) Screening for diabetes mellitus (V77.1) (Z13.1) Screening for human immunodeficiency virus (V73.89) (Z11.4) Screening for thyroid disorder (V77.0) (Z13.29) Somatic dysfunction of cervical region (739.1) (M99.01) Somatic dysfunction of head region (739.0) (M99.00) Somatic dysfunction of rib (739.8) (M99.08) Somatic dysfunction of thoracic region (739.2) (M99.02) Somatic dysfunction of upper extremity (739.7) (M99.07) Spontaneous miscarriage (634.90) (O03.9) 9 wk [facility] 11/02/2018 Steroid long-term use (V58.65) Strain of rhomboid muscle, subsequent encounter (V58.89,847.1) (S29.012D) Subchorionic hematoma in first trimester (656.73) (O41.8X10,O46.8X1) Subclinical hypothyroidism (244.8) (E03.8) Urgency of urination (788.63) (R39.15) Urinary tract infection (599.0) (N39.0) UTI in (646.60,599.0) (O23.40) 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) Visit for screening mammogram (V76.12) (Z12.31) Past Medical History Problems History of Acute tonsillitis (463) (J03.90) Resolved Date: 02 Nov 2018 History of Anxiety and depression (300.00,311) (F41.9,F32.A) History of amenorrhea (V13.29) (Z87.42) Resolved Date: 03 Nov 2018 History of chronic endometritis (V13.29) (Z87.42) Resolved Date: 22 Dec 2016 History of cough Resolved Date: 02 Nov 2018 History of Crohn's disease (V12.70) (Z87.19) Resolved Date: 20 Apr 2020 History of migraine (V12.49) (Z86.69) History of (V13.29) Resolved Date: 30 Jan 2017 History of seasonal allergies (V15.09) (Z88.9) History of In vitro fertilization (V26.81) (Z31.83) History of Post-operative pain (338.18) (G89.18) Resolved Date: 18 Apr 2016 History of with history of infertility in first trimester (V23.0) (O09.01) Resolved Date: 30 Jan 2017 History of Routine screening for STI (sexually transmitted infection) (V74.5) (Z11.3) Resolved Date: 18 Jul 2021 History of Yeast infection (112.9) (B37.9) Resolved Date: 02 Nov 2018 Surgical History Problems History of Cholecystectomy Laparoscopic History of Dilation and curettage History of Exploratory Laparoscopy For pelvic pain--> no evidence of endometriosis. Was then diagnosed with Crohn's disease. 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 Normal [facility] GC + Chlamydia By Amplified Detectionon 06-02-2022 C. trachomatis rRNA WESLEY+probe Ql (Unsp spec) Negative Negative [id number]-VKRJX-Tha cker A IVF Work Phone: Comment on above: The APTIMA Combo 2 a ssay is FDA-approved for Chlamydia trachomatis and Neisseria gonorrhoeae testing on female endocervical and vaginal swabs, ThinPrep liquid pap samples, male urine samples and urethral swabs. Performance characteristics for Chlamydia trachomatis and Neisseria gonorrhoeae testing on specific naq-VXT-rusraswe sample types (female urine samples) have been validated by [facility]. This laboratory is certified by CLIA to perform high complexity testing. Samples from all other sites are not validated for this method. N. gonorrhoeae rRNA WESLEY+probe Ql (Unsp spec) Negative Negative JB-FXNZM-Fxh cker A IVF Work Phone: Comment on above: SOURCE: Urine The AP RAHEEM Combo 2 assay is FDA-approved for Chlamydia trachomatis and Neisseria gonorrhoeae testing on female endocervical and vaginal swabs, ThinPrep liquid pap samples, male urine samples and urethral swabs. Performance characteristics for Chlamydia trachomatis and Neisseria gonorrhoeae testing on specific ssv-CTQ-dbpzqjbe sample types (female urine samples) have been validated by [facility]. This laboratory is certified by CLIA to perform high complexity testing. Samples from all other sites are not validated for this method. HIV 1/2 ANTIGEN/ANTIBODY SCR EEN WITH REFLEX TO CONFIRMATIONon 08-30-2021 HIV 1+2 Ab Qn (S) Non-Reactive See Below -SEXER-Technical Maintenance Technician cker IVF Work Phone: Comment on above: SOURCE: Reference Ra nge: NONREACTIVE HIV Ag/Ab screen is performed using the Siemens [employer] HIV Ag/Ab Combo assay which detects the presence of HIV p24 antigen as well as antibodies to HIV-1 (Group M and O) and HIV-2..No laboratory evidence of HIV infection. If acute HIV infection is suspected, consider testing for HIV RNA by PCR (viral load). Hemoglobin A1Con 08-30-2021 Glucose [Mass/Vol] 94 mg/dL MG-OBG YN-Technical Maintenance Technician cker A IVF Work Phone: HbA1c (Bld) [Mass fraction] 4.9 % WT-ELRHI-Qtt cker IVF Work Phone: Comment on above: Diagnosis of Diabete s-Adults Non-Diabetic: < or = 5.6% Increased risk for developing diabetes: 5.7-6.4% Diagnostic of diabetes: > or = 6.5%. Monitoring of Diabetes Age (y) Therapeutic Goal (%) Adults: >18 <7.0 Pediatrics: 13-18 <7.5 7-12 <8.0 0- 6 7.5-8.5 [place] [employer]. Diabetes Care 33(S1), Mar 2009. Hepatitis B Surface Antigeno n 08-30-2021 Hepatitis B Surface Antigen Non-Reactive See Below ZC-KLDPB-Rvg cker IVF Work Phone: Comment on above: SOURCE: Reference Ra nge: NONREACTIVE Biotin interference may cause falsely decreased results. Patients taking a Biotin dose of up to 5 mg/day should refrain from taking Biotin for 24 hours before sample collection. Providers may contact their local laboratory for further information. SOURCE: Reference Ra nge: NONREACTIVE Results from patients taking biotin supplements or receiving high-dose biotin therapy should be interpreted with caution due to possible interference with this test. Providers may contact their local laboratory for further information. Laboratory - Blood bankon ABO group Nom (Bld) A MG-SEXER-Technical Maintenance Technician cker IVF Work Phone: Blood group antibody screen Ql Negative CY-STGYK-Ivj er IVF Work Phone: Rh immune globulin screen (Bld) [Interp] Positive IA-GWOFZ-Ucq cker IVF Work Phone: Laboratory - Chemistry and C hemistry - challengeon 08-30-2021 TSH Qn 4.86 m[IU]/L above high threshold See Below KF-YABZJ-Nwc cker A IVF Work Phone: Comment on above: Reference Range: 0.4 4 - 3.98 TSH testing is performed using different testing methodology at [facility] than at other [facility]. Direct result comparisons should only be made within the same method. MRI Breast Bilateral with co ntrast full protocolon 08-30-2021 MRI Breast Bilateral with contrast full protocol Normal [facility] IVF Work Phone: Rubella IgG Antibodyon 08-30 Rubella virus IgG IA Ql Positive [facility] IVF Work Phone: Comment on above: INTERPRETATIVE COMME NT NEGATIVE: No IgG antibodies specific to Rubella detected. It is likely that the patient has not had a previous exposure to Rubella through infection or vaccination. Alternatively, the patient may have been exposed to Rubella but a failure to respond may indicate immunodeficiency. EQUIVOCAL:Equivocal results; obtain additional sample for retesting. POSITIVE: IgG antibody to Rubella detected. This may indicate that the patient was exposed to Rubella through infection or vaccination.The interpretation of serological tests should take into accountthe immunological status of the patient. Test results forpatients, including immunocompromised patients, neonates, andpediatric patients, reflect their capacity to respondimmunologically to the virus as well as their exposure to thepathogen. Patients treated with IVIG may demonstrate alteredresults in serological assays. SYPHILIS SCREENING WITH REFL EXon 08-30-2021 T. pallidum IgG+IgM IA Ql (S) Non-Reactive See Below [facility] IVF Work Phone: Comment on above: SOURCE: Reference Ra nge: NONREACTIVENo significant level of Treponema pallidum antibody detected. Repeat testing in 2 to 4 weeks may be considered if early infection or incubating syphilis infection is suspected. T4 - Free Thyroxine, Serumon 08-30-2021 Free T4 [Mass/Vol] 0.83 ng/dL See Below [facility] YN-[facility] IVF Work Phone: Comment on above: Reference Range: 0.6 1 - 1.12 Thyroxine Free testing is performed using different testing methodology at [facility] than at other [facility]. Direct result comparisons should only be made within the same method.. Biotin can cause falsely elevated free T4 results. Patients taking a Biotin dose of up to 10 mg/day should refrain from taking Biotin for 24 hours before sample collection. Patient taking a Biotin dose of >10 mg/day should consult with their physician or the laboratory before the blood draw. Varicella Zoster IgG Antibod yon 08-30-2021 VZV IgG IA Ql (S) Positive NEGATIVE MG-OBGY N-Technical Maintenance Technician cker 206A IVF Work Phone: Comment on above: INTERPRETATIVE COMME NT NEGATIVE: No IgG antibodies specific to VZV detected. It is likely that the patient has not had a previous exposure to VZV through infection or vaccination. Alternatively, the patient may have been exposed to VZV but a failure to respond may indicate immunodeficiency. EQUIVOCAL:Equivocal results; obtain additional sample for retesting. POSITIVE: IgG antibody to VZV detected. This may indicate that the patient was exposed to VZV through infection or vaccination.The interpretation of serological tests should take into accountthe immunological status of the patient. Test results forpatients, including immunocompromised patients, neonates, andpediatric patients, reflect their capacity to respondimmunologically to the virus as well as their exposure to thepathogen. Patients treated with IVIG may demonstrate alteredresults in serological assays. Chart Updateon 07-27-2021 Chart Update Chart Update Called patient to review plan: She is taking IVIG infusions due to immunodeficiency Wants to know if it's okay to do IVIG around time of transfer Discussed that there is limited data regarding IVIG and RPL but there is some data to suggest positive effects so it is unlikely that the IVIG infusions will have a negative impact on chances. 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 : Annual Screening Mammogram Patient Discussion/Summary Plan will be to follow protocol for successful cycle exactly with suppression protocol leading into programmed FET cycle with baby aspirin, lovenox, and Prednisone. Pt's timeline for next FET is October 2021, pt aware she will need to stop /pumping entirely before suppression protocol leading into Programmed FET. Plan: -SIS or Diagnostic Hysteroscopy -Screening Mammogram -Follow up with OB to make sure Pap up to date -Will need to stop /pumping prior to suppression protocol and/or Programmed FET -update labs: TANDS, Rubella, Varicella, HgbA1C, TSH, STI screening -update consents -nurse consult -Plan 2 month suppression protocol leading into programmed FET (August AND September), no need to repeat BCL6 endometrial biopsy -Programmed FET (Estrace 6 mg PO daily) with lovenox, baby aspirin, and prednisone. Provider Impressions 41 year old female with a history of infertility and recurrent loss, now s/p delivery of daughter conceived with donor embryo (donor oocyte/donor sperm) after suppression protocol for +BCL6 via Programmed FET with baby aspirin, prednisone, and lovenox. Ready to pursue another . Plan will be to follow protocol for successful cycle exactly with suppression protocol leading into programmed FET cycle with baby aspirin, lovenox, and Prednisone. Pt's timeline for next FET is October 2021, pt aware she will need to stop /pumping entirely before suppression protocol leading into Programmed FET. Plan: -SIS or Diagnostic Hysteroscopy -Screening Mammogram -Follow up with OB to make sure Pap up to date -Will need to stop /pumping prior to suppression protocol and/or Programmed FET -update labs: TANDS, Rubella, Varicella, HgbA1C, TSH, STI screening -update consents -nurse consult -Plan 2 month suppression protocol leading into programmed FET (August AND September), no need to repeat BCL6 endometrial biopsy -Programmed FET (Estrace 6 mg PO daily) with lovenox, baby aspirin, and prednisone. Reviewed above plan with Dr. Espinosa and Dr. Espinosa agreeable. 35 minutes spent with pt with >50% time spent counseling/coordinating care Zari Oviedo CNP Appointment Duration:. 45 minutes; greater than half of the time was spent on counseling. Chief Complaint An interactive audio and video telecommunication system which permits real time communications between the patient (at the originating site) and provider (at the distant site) was utilized to provide this telehealth service. Verbal consent was requested and obtained from WILDEMETERIO YI on this date, 06/15/2021 01:30 PM , for a telehealth visit. The patient is being seen today for a Follow Up Visit; patient desires another . Virtual visit via telehealth History of Present IllnessPatient is a 41 year old female who presents with history of infertility. Patient of Dr. 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 HISTORY: History of STI or PID: pt denies Last pap smear: 07/2018, normal cytology negative HPV History of abnormal paps: pt denies Mammogram: 06/2018, normal (no repeat since r/t and ) Pelvic pain: pt denies Pain with intercourse, bowel movements or full bladder: pt denies MENSTRUAL HISTORY: LMP: 06/14/2021 (this is first menses since delivery) Contraception: Cycle length: just got first period since delivery r/t Bleeding length: Heavy bleeding Dysmenorrhea: ENDOCRINE/INFERTILITY HISTORY: Duration of infertility: Coital Activity/week: Nipple Discharge: Vision changes / headaches: pt denies Excess hair growth: pt denies Acne/oily skin: pt denies Recent weight change: pt is back to weight Exercise: none PMH: none MEDICATION: Sertraline PSH: orthopedic surgery PSYCH HISTORY: anxiety ( well controlled on Sertraline) SOCIAL HISTORY: 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 Normal [employer] Tobacco Screening.on 022 Fall risk assessment a) No falls within the last year RO-OGFTJ-KRZ [facility] Work Phone: Last menstrual period start date N/A JI-CHSDG-NXC [address] [place] Work Phone: Tobacco use status [facility] b) No CZ-VOBUZ-YWH [address] [place] Work Phone: Immunoglobulin G Level, Seru mon 06-08-2021 IgG [Mass/Vol] 652 mg/dL below low threshold 700 - 1600 MP-Canal Equipment Mechanic [employer] 2100 DO Work Phone: Comment on above: MONOCLONAL PROTEINS MAY CAUSE FALSELY LOWRESULTS IN THIS ASSAY. SERUM PROTEINELECTROPHORESIS SHOULD BE DONE THEFIRST TEST TO EVALUATE MONOCLONAL GAMMOPATHY. Laboratory - Allergyon 06-08 A. alternata IgE Qn (S) <0.10 <0.35 MP-Canal Equipment Mechanic [employer] Work Phone: Comment on above: SEE IMMUNOCAP INTERP .IGE A. fumigatus IgE Qn (S) <0.10 <0.35 [employer]-Canal Equipment MechanicGENIAC Work Phone: Comment on above: SEE IMMUNOCAP INTERP .IGE Australian house dust mite IgE Qn (S) <0.10 <0.35 [employer]-Canal Equipment MechanicGENIAC Work Phone: Comment on above: SEE IMMUNOCAP INTERP .IGE [place] IgE Qn (S) <0.10 <0.35 [employer]Canal Equipment [employer]icGEN[employer] Work Phone: Comment on above: SEE IMMUNOCAP INTERP .IGE B[place] grass IgE Qn (S) <0.10 <0.35 MP-Canal Equipment MechanicGENIAC Work Phone: Comment on above: SEE IMMUNOCAP INTERP .IGE Boxelder IgE Qn (S) <0.10 <0.35 [employer]-Al lergist [employer] Work Phone: Comment on above: SEE IMMUNOCAP INTERP .IGE C. herbarum IgE Qn (S) <0.10 <0.35 MP-Canal Equipment MechanicGENIAC Work Phone: Comment on above: SEE IMMUNOCAP INTERP .IGE [place] IgE Qn (S) <0.10 <0.35 [employer] Work Phone: Comment on above: SEE IMMUNOCAP INTERP .IGE Cat dander IgE Qn (S) 0.15 {KU/L} <0.35 [employer] Work Phone: Comment on above: SEE IMMUNOCAP INTERP .IGE Cockroach IgE Qn (S) <0.10 <0.35 [employer] 2100 DO Work Phone: Comment on above: SEE IMMUNOCAP INTERP .IGE Common Pigweed IgE Qn (S) <0.10 <0.35 [employer] Work Phone: Comment on above: SEE IMMUNOCAP INTERP .IGE [place] IgE Qn (S) <0.10 <0.35 [employer] Work Phone: Comment on above: SEE IMMUNOCAP INTERP .IGE Dog dander IgE Qn (S) <0.10 <0.35 [employer] Work Phone: Comment on above: SEE IMMUNOCAP INTERP .IGE Kosovan plantain IgE Qn (S) <0.10 <0.35 [employer] Work Phone: Comment on above: SEE IMMUNOCAP INTERP .IGE house dust mite IgE Qn (S) <0.10 <0.35 [employer] 2099 DO Work Phone: Comment on above: SEE IMMUNOCAP INTERP .IGE Goosefoot IgE Qn (S) <0.10 <0.35 [employer] Work Phone: Comment on above: SEE IMMUNOCAP INTERP .IGE [place] grass IgE Qn (S) <0.10 <0.35 [employer] Work Phone: Comment on above: SEE IMMUNOCAP INTERP .IGE [place] blue grass IgE Qn (S) <0.10 <0.35 [employer] Work Phone: Comment on above: SEE IMMUNOCAP INTERP .IGE [place] IgE Qn (S) <0.10 <0.35 [employer]-Canal Equipment Mechanic [employer] Work Phone: Comment on above: SEE IMMUNOCAP INTERP .IGE P. notatum IgE Qn (S) <0.10 <0.35 [employer]-Canal Equipment MechanicGENIAC Work Phone: Comment on above: SEE IMMUNOCAP INTERP .IGE Pecan or [place] Tree IgE Qn (S) <0.10 <0.35 [employer]-Canal Equipment Mechanic [employer] Work Phone: Comment on above: SEE IMMUNOCAP INTERP .IGE Saltwort IgE Qn (S) <0.10 <0.35 [employer]-Al lergist [employer] Work Phone: Comment on above: SEE IMMUNOCAP INTERP .IGE Sheep [place] IgE Qn (S) <0.10 <0.35 -Canal Equipment Mechanic [employer] Work Phone: Comment on above: SEE IMMUNOCAP INTERP .IGE Silver Birch IgE Qn (S) <0.10 <0.35 [employer]-Canal Equipment Mechanic [employer] Work Phone: Comment on above: SEE IMMUNOCAP INTERP .IGE Royer IgG Qn (S) <0.10 <0.35 [employer]-All ergGENIAC Work Phone: Comment on above: SEE IMMUNOCAP INTERP .IGE Total IgE RAST Qn (S) 5.5 {KU/L} See Below [employer]-Canal Equipment Mechanic [employer] Work Phone: Comment on above: Reference Range: 0.0 - 214.0 Note: Omalizumab (Xolair, Genentech; humanized IgG1 antihuman IgE Fc) treatment does not significantly interfere with the accuracy of total IgE on the ImmunoCAP ([employer] [place]) platform. J Allergy Clin Immunol 2006;117:759-66). Allergens, parasitic diseases, smoking, and alcohol consumption have been reported to increase levels of total IgE in serum. White V[place] IgE Qn (S) <0.10 <0.35 MP-Canal Equipment Mechanic [employer] Work Phone: Comment on above: SEE IMMUNOCAP INTERP .IGE [place] IgE Qn (S) <0.10 <0.35 MP-Canal Equipment Mechanic [employer] Work Phone: Comment on above: SEE IMMUNOCAP INTERP .IGE White mulberry IgE Qn (S) <0.10 <0.35 MP-Canal Equipment Mechanic [employer] Work Phone: Comment on above: SEE IMMUNOCAP INTERP .IGE [place] IgE Qn (S) <0.10 <0.35 MP-Canal Equipment Mechanic [employer] Work Phone: Comment on above: SEE IMMUNOCAP INTERP .IGE Laboratory - Microbiology an d Antimicrobial susceptibilityon 06-08-2021 S. pneumoniae 1 IgG (S) [Mass/Vol] 0.7 ug/mL below low threshold >1.3 MP-Canal Equipment Mechanic [employer] Work Phone: S. pneumoniae 12 IgG (S) [Mass/Vol] <0.1 below low threshold >1.3 MP-Canal Equipment Mechanic [employer] Work Phone: S. pneumoniae 14 IgG (S) [Mass/Vol] 0.2 ug/mL below low threshold >1.3 MP-Canal Equipment Mechanic [employer] Work Phone: S. pneumoniae 17 IgG (S) [Mass/Vol] 0.4 ug/mL below low threshold >1.3 MP-Canal Equipment Mechanic [employer] Work Phone: S. pneumoniae 19 IgG (S) [Mass/Vol] 0.5 ug/mL below low threshold >1.3 MP-Canal Equipment Mechanic [employer] Work Phone: S. pneumoniae 2 IgG (S) [Mass/Vol] 0.9 ug/mL below low threshold >1.3 MP-Canal Equipment Mechanic [employer] Work Phone: S. pneumoniae 20 IgG (S) [Mass/Vol] 1.5 ug/mL >1.3 MP-Canal Equipment Mechanic [employer] Work Phone: S. pneumoniae 22 IgG (S) [Mass/Vol] 0.6 ug/mL below low threshold >1.3 [employer] Work Phone: S. pneumoniae 23 IgG (S) [Mass/Vol] <0.1 below low threshold >1.3 [employer] Work Phone: S. pneumoniae 3 IgG (S) [Mass/Vol] 2.0 ug/mL >1.3 [employer] Work Phone: S. pneumoniae 34 IgG (S) [Mass/Vol] 1.1 ug/mL below low threshold >1.3 [employer] Work Phone: S. pneumoniae 4 IgG (S) [Mass/Vol] 0.1 ug/mL below low threshold >1.3 [employer] Work Phone: S. pneumoniae 43 IgG (S) [Mass/Vol] 1.4 ug/mL >1.3 [employer] Work Phone: S. pneumoniae 5 IgG (S) [Mass/Vol] 0.5 ug/mL below low threshold >1.3 [employer] Work Phone: S. pneumoniae 8 IgG (S) [Mass/Vol] 2.8 ug/mL >1.3 [employer] Work Phone: S. pneumoniae 9 IgG (S) [Mass/Vol] 3.7 ug/mL >1.3 [employer] Work Phone: S. pneumoniae Prydeinig type 15B IgG (S) [Mass/Vol] 1.2 ug/mL below low threshold >1.3 [employer] Work Phone: S. pneumoniae Prydeinig type 18C IgG (S) [Mass/Vol] 0.5 ug/mL below low threshold >1.3 [employer] Work Phone: [phone] S. pneumoniae Prydeinig type 19A IgG (S) [Mass/Vol] 1.8 ug/mL >1.3 MP-Canal Equipment Mechanic [facility] Work Phone: S. pneumoniae Prydeinig type 33F IgG (S) [Mass/Vol] 1.0 ug/mL below low threshold >1.3 MP-Canal Equipment Mechanic [employer] Work Phone: Comment on above: Perfor med At:[employer] [facility] [employer] [id number] Director: Elmer Gonzalez Ph.D., BCLD (ABB)CLIA#: [id number]: S. pneumoniae Prydeinig type 6B IgG (S) [Mass/Vol] 1.0 ug/mL below low threshold >1.3 MP-Canal Equipment Mechanic [facility] Work Phone: S. pneumoniae Prydeinig type 7F IgG (S) [Mass/Vol] 3.5 ug/mL >1.3 MP-Canal Equipment Mechanic [employer] Work Phone: [phone] S. pneumoniae Prydeinig type 9V IgG (S) [Mass/Vol] 1.2 ug/mL below low threshold >1.3 MP-Canal Equipment Mechanic [employer] Work Phone: [place] Binding Lectinon 05-29 [place] [employer]in 503 ng/mL >100 MP-Canal Equipment Mechanic [employer] Work Phone: Comment on above: Investigators most f requently use 100 ng/mL as the threshold for defining an MBL deficiency. MBL values below this value may be associated with increased susceptability to infection.*This test was developed and its performance characteristics determined by [employer] [employer]. It has not been cleared or approved by the U.S. Food and Drug Administration. Performed At:[facility] [employer] [address] Director: Elmer Gonzalez Ph.D., BCLD (ABB)CLIA#: [id number]: No Panel Informationon 06-08 SEE COMMENT MP-Canal Equipment Mechanic [employer] 2100 DO Work Phone: Comment on above: REFERENCE RANGE (IMM UNOCAP) IGE KU/L CLASS INTERPRETATION < 0.10 0 BELOW DETECTION 0.10- 0.34 0/1 EQUIVOCAL 0.35- 0.69 1 LOW POSITIVE 0.70- 3.49 2 MODERATE POSITIVE 3.50- 17.49 3 HIGH DLCOXIGN00.50- 49 4 VERY HIGH [id number] - 99 5 VERY HIGH POSITIVE >100 6 VERY HIGH POSITIVE <0.10 <0.35 MP-Canal Equipment Mechanic [facility] Work Phone: Comment on above: SEE IMMUNOCAP INTERP .IGE Tetanus Abon 06-08-2021 C. tetani IgG IA Qn (S) 3.47 {IU/mL} <0.10 -Canal Equipment Mechanic [employer] 2100 DO Work Phone: Comment on above: Interpretation: Non- Protective <0.10 Protective >=0.10 Results for this test are for research purposes only by the assay's channel opener outsoles. The performance characteristics of this product have not been established. Results should not be used as a diagnostic procedure without confirmation of the diagnosis by another medically established diagnostic product or procedure. CT Sinus without Contraston 05-21-2021 CT Sinuses WO contrast Normal -Canal Equipment Mechanic [employer] 2100 DO Work Phone: Office Visiton 04-24-2021 Follow-up visit Diagnoses/Problems Recurrent sinusitis (473.9) (J32.9) Hypogammaglobulinemia (279.00) (D80.1) Steroid long-term use (V58.65) Orders Hypogammaglobulinemia, Recurrent sinusitis, Steroid long-term use Start: Pneumococcal polysaccharide vaccine, 23 valent (Pneumococcal polysaccharide vaccine, 23 valent); INJECT 0.5 ML Intramuscular Patient Discussion/Summary Prescription was provided for a Pneumovax vaccine. Obtain blood work to evaluate post vaccination titers and MBL level in 4-[address] sinuses. We will call you with results and further recommendations. Check out [email or web address] for more information. I recommend you get COVID vaccinated. By signing my name below, I, Ervin Weiner, attest that this documentation has been prepared under the direction and in the presence of Flakita Antonio MD. All medical record entries made by the Scribe were at my direction and personally dictated by me. I have reviewed the chart and agree that the record accurately reflects my personal performance of the history, physical exam, discussion and plan. Provider Impressions Hypogammaglobulinemia - New problem, stable. She has Hx of longstanding recurrent sinusitis. chronic illnesses/colds and ruptured bilateral eardrums Nov 2020. Her sinusitis episodes are now monthly. Dr. Benz referred her here. Her IgG is low. Prescription was provided for a Pneumovax vaccine. She will have post vaccination titers and MBL level in 4-[address] sinuses. If infection is present, she will undergo a month course of antibiotics. We will call you with results and further recommendations. Check out [email or web address] I recommend you get COVID vaccinated. Moderate risk of disease progression exists. Chief Complaint New patient visit for immune deficiency disorder History of Present Illness WILD YI is a 41 year old female, new patient, presenting for immune deficiency disorder. WILD was referred by Anthony Benz MD for evaluation and management. Patient saw Dr. 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 Sinusitis episodes are now monthly. He did not perform endoscopy, looked in her ears and referred her to us. Her daughter has been ill this year and patient inevitably ends up ill also. She last had Zithromax in Jan 2021. She states does not react to any vaccines and is questioning if she should have her COVID vaccine. She has Hx of Crohns with intermittent diarrhea. 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 Review of Systems See attached chart notes, reviewed with patient Constitutional: No fever, chills, night sweats. No recent weight gain or loss HEENT: RUPTURED BILATERAL EARDRUMS PER PATIENT. No earaches, hearing loss, epistaxis, sore throat, vocal hoarseness Cardiovascular: Denies chest pain, palpitations, lower ext edema or claudication Respiratory: Denies chronic cough, SOB with exertion, orthopnea and nocturnal dyspnea GI: GERD. CROHNS, INTERMITTENT DIARRHEA. 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) (E28.39) Encounter to determine viability of (V23.87) (O36.80X0) Female infertility (628.9) (N97.9) demise due to miscarriage (634.90) (O03.9) GERD (gastroesophageal reflux disease) (530.81) (K21.9) History of Crohn's disease (V12.70) (Z87.19) Hypertension (401.9) (I10) Immune deficiency disorder (279.3) (D84.9) Psychological factors affecting medical condition (316) (F54) Recurrent loss with current (646.33) (O26.20) Recurrent loss without current (629.81) (N96) Routine screening for STI (sexually transmitted infection) (V74.5) (Z11.3) Scapular dyskinesis (781.3) (G25.89) Screening for human immunodeficiency virus (V73.89) (Z11.4) Somatic dysfunction of cervical region (739.1) (M99.01) Somatic dysfunction of head region (739.0) (M99.00) Somatic dysfunction of rib (739.8) (M99.08) Somatic dysfunction of thoracic region (739.2) (M99.02) Somatic dysfunction of upper extremity (739.7) (M99.07) Spontaneous miscarriage (634.90) (O03.9) 9 wk DANKS 11/02/2018 Steroid long-term use (V58.65) Strain of rhomboid muscle, subsequent encounter (V58.89,847.1) (S29.012D) Subchorionic hematoma in first trimester (656.73) (O41.8X10,O46.8X1) Subclinical hypothyroidism (244.8) (E03.8) Urgency of urination (788.63) (R39.15) Urinary tract infection (599.0) (more content not included)... Normal [facility] Antibody Assay, Diphtheriaon 01-31-2021 C. diphtheriae Ab IA Qn (S) 1.00 {IU/mL} <0.10 [facility] Work Phone: Comment on above: Interpretation: Non- Protective <0.10 Protective >=0.10 For research use only. Complement, Total, Son 01-31 Complement total hemolytic CH50 Qn 75 [arb'U]/mL 30-75 [employer] Work Phone: Comment on above: Test Performed by:[facility] [place] [id number] Director: Jero Khan M.D. Ph.D.; CLIA# [id number] H. Influenza B Ab, IgGon H. influenzae B IgG (S) [Mass/Vol] 0.0 ug/mL [employer] [facility] Work Phone: Comment on above: INTERPRETIVE INFORMA TION: H. Influenzae b Ab, IgG Less than 1.0 ug/mL ...... Antibody concentration not protective. 1.0 ug/mL or greater ..... Antibodies to H. Influenzae b detected. Suggestive of protection.Responder status is determined according to the ratio of post-vaccination concentration to pre-vaccination concentration of Haemophilus influenza b antibody, IgG as follows: 1. If the post-vaccination concentration is less than 3.0 ug/mL, the patient is considered to be a non-responder. 2. If the post-vaccination concentration is greater than or equal to 3.0 ug/mL, a patient with a ratio of greater than or equal to 4 is a good responder, a ratio of 2-4 is a weak responder, and a ratio of less than 2 is considered a non-responder. This test was developed and its performance characteristics determined by [facility]. It has not been cleared or approved by the US Food and Drug Administration. This test was performed in a CLIA certified laboratory and is intended for clinical purposes.Performed By: [facility] [place] [id number] Director: Perlita Wheeler MD Immunoglobulin E Level, Seru mon 01-31-2021 IgE Qn 2 {IU/mL} 0 - 214 -[employer] Gior[employer] benavidez Work Phone: Initial Visit (Otolaryngolog y)on 01-31-2021 Initial Visit (Otolaryngology) Diagnoses/Problems Recurrent acute serous otitis media of both ears (381.01) (H65.06) Patient Discussion/Summary History of recurrent acute otitis media in a patient with concern for immunosuppression with a history of Crohn's disease etc. Certainly she is at risk for further infection because her of her daughter being in daycare. At this juncture we will go ahead and send her for needed blood panel to make sure we are not missing any definitive immune deficiency in particular to pneumococcus and H. influenzae. Very detailed discussion with her in this regard with all questions answered. I will speak with her with the results and plan accordingly. Provider Impressions History of recurrent acute otitis media in a patient with concern for immunosuppression with a history of Crohn's disease etc. Certainly she is at risk for further infection because her of her daughter being in daycare. At this juncture we will go ahead and send her for needed blood panel to make sure we are not missing any definitive immune deficiency in particular to pneumococcus and H. influenzae. Very detailed discussion with her in this regard with all questions answered. I will speak with her with the results and plan accordingly. Thank you again for allowing us to participate in the care of this patient. This note was created with voice recognition software and has not been corrected for typographical or grammatical errors. Chief Complaint BILATERAL TM PERF DR. AQUILES ESCOBEDO History of Present IllnessPatient is a very pleasant 40-year-old female seen today for the kind request of Dr. Escobedo. Patient presenting for evaluation of her ears. Has a significant history of having chronic problems as a child with recurrent ear infections and tubes consider. Most recently she gave to her daughter who has been in daycare and has transmitted multiple infections to her mom. Patient is now being seen for history of otorrhea with the most recent infection. Denying any dramatic change in hearing. All remaining ENT inquiry is clear. The patient's intake form incorporating patient medical history, social history, family history, and review of systems was reviewed by me today in the office and signed on this date and entered into the EMR system. Review of Systems A detailed review of systems is as noted on the intake form and is reviewed with the patient and is signed by me on this date. 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 (256.39,628.0) (E28.39) Encounter for assisted reproductive fertility procedure cycle (V26.81) (Z31.83) Encounter for immunization (V03.89) (Z23) Encounter for test, result positive (V72.42) (Z32.01) Encounter for screening for other viral diseases (V73.89) (Z11.59) Encounter for vitamin deficiency screening (V77.99) (Z13.21) Encounter to determine viability of (V23.87) (O36.80X0) Female infertility (628.9) (N97.9) Female infertility associated with male factors (628.8) (Z31.81,N97.8) Fertility testing (V26.21) (Z31.41) demise due to miscarriage (634.90) (O03.9) GERD (gastroesophageal reflux disease) (530.81) (K21.9) History of Crohn's disease (V12.70) (Z87.19) Hypertension (401.9) (I10) Increased prolactin level (790.99) (R79.89) Infertility counseling (V26.49) (Z31.69) Left shoulder pain (719.41) (M25.512) Maxillary sinusitis, unspecified chronicity (473.0) (J32.0) Missed (632) (O02.1) Obesity (278.00) (E66.9) exam (V24.2) (Z39.2) confirmed by positive blood test (V72.42) (Z32.01) examination or test, unconfirmed (V72.40) (Z32.00) care (V22.1) (Z34.90) care, subsequent (V22.1) (Z34.80) Psychological factors affecting medical condition (316) (F54) Recurrent loss with current (646.33) (O26.20) Recurrent loss without current (629.81) (N96) Right lower quadrant abdominal pain (789.03) (R10.31) Routine screening for STI (sexually transmitted infection) (V74.5) (Z11.3) Scapular dyskinesis (781.3) (G25.89) Screening for human immunodeficiency virus (V73.89) (Z11.4) Somatic dysfunction of cervical region (739.1) (M99.01) Somatic dysfunction of head region (739.0) (M99.00) Somatic dysfunction of rib (739.8) (M99.08) Somatic dysfunction of thoracic region (739.2) (M99.02) Somatic dysfunction of upper extremity (739.7) (M99.07) Special screening examination for other specified chlamydial diseases (V73.88) (Z11.8) Spontaneous miscarriage (634.90) (O03.9) 9 wk DANDC 11/02/2018 Steroid long-term use (V58.65) Strain of rhomboid muscle, subsequent encounter (V58.89,847.1) (S29.012D) Subchorionic hematoma in first trime (more content not included)... Normal [facility] - Chemistry and C hemistry - challengeon 01-31-2021 IgA [Mass/Vol] 211 mg/dL 70 - 400 MP-Otolary ng ology-Sheffi eld Work Phone: Comment on above: MONOCLONAL PROTEINS MAY CAUSE FALSELY LOWRESULTS IN THIS ASSAY. SERUM PROTEINELECTROPHORESIS SHOULD BE DONE THEFIRST TEST TO EVALUATE MONOCLONAL GAMMOPATHY. IgG [Mass/Vol] 559 mg/dL below low threshold 700 - 1600 MP-Otolaryng ology-Sheffi eld Work Phone: Comment on above: MONOCLONAL PROTEINS MAY CAUSE FALSELY LOWRESULTS IN THIS ASSAY. SERUM PROTEINELECTROPHORESIS SHOULD BE DONE THEFIRST TEST TO EVALUATE MONOCLONAL GAMMOPATHY. IgM [Mass/Vol] 68 mg/dL 40 - 230 MP-Otolary ng ology-Sheffi eld Work Phone: Comment on above: MONOCLONAL PROTEINS MAY CAUSE FALSELY LOWRESULTS IN THIS ASSAY. SERUM PROTEINELECTROPHORESIS SHOULD BE DONE THEFIRST TEST TO EVALUATE MONOCLONAL GAMMOPATHY. Laboratory - Microbiology an d Antimicrobial susceptibilityon 01-31-2021 S. pneumoniae 1 IgG (S) [Mass/Vol] <0.1 below low threshold >1.3 MP-Otolaryng ology-Sheffi eld Work Phone: S. pneumoniae 12 IgG (S) [Mass/Vol] <0.1 below low threshold >1.3 MP-Otolaryng ology-Sheffi eld Work Phone: S. pneumoniae 14 IgG (S) [Mass/Vol] <0.1 below low threshold >1.3 MP-Otolaryng ology-Sheffi eld Work Phone: S. pneumoniae 17 IgG (S) [Mass/Vol] <0.1 below low threshold >1.3 MP-Otolaryng ology-Sheffi eld Work Phone: S. pneumoniae 19 IgG (S) [Mass/Vol] 0.1 ug/mL below low threshold >1.3 MP-Otolaryng ology-Sheffi eld Work Phone: S. pneumoniae 2 IgG (S) [Mass/Vol] <0.1 below low threshold >1.3 MP-Otolaryng ology-Sheffi eld Work Phone: S. pneumoniae 20 IgG (S) [Mass/Vol] 0.3 ug/mL below low threshold >1.3 MP-Otolaryng ology-Sheffi eld Work Phone: S. pneumoniae 22 IgG (S) [Mass/Vol] <0.1 below low threshold >1.3 MP-Otolaryng ology-Sheffi eld Work Phone: S. pneumoniae 23 IgG (S) [Mass/Vol] <0.1 below low threshold >1.3 MP-Otolaryng ology-Sheffi eld Work Phone: S. pneumoniae 3 IgG (S) [Mass/Vol] 0.7 ug/mL below low threshold >1.3 MP-Otolaryng ology-Sheffi eld Work Phone: S. pneumoniae 34 IgG (S) [Mass/Vol] 0.3 ug/mL below low threshold >1.3 MP-Otolaryng ology-Sheffi eld Work Phone: S. pneumoniae 4 IgG (S) [Mass/Vol] <0.1 below low threshold >1.3 MP-Otolaryng ology-Sheffi eld Work Phone: S. pneumoniae 43 IgG (S) [Mass/Vol] 0.3 ug/mL below low threshold >1.3 MP-Otolaryng ology-Sheffi eld Work Phone: S. pneumoniae 5 IgG (S) [Mass/Vol] <0.1 below low threshold >1.3 MP-Otolaryng ology-Sheffi eld Work Phone: S. pneumoniae 8 IgG (S) [Mass/Vol] <0.1 below low threshold >1.3 MP-Otolaryng ology-Sheffi eld Work Phone: S. pneumoniae 9 IgG (S) [Mass/Vol] <0.1 below low threshold >1.3 MP-Otolaryng ology-Sheffi eld Work Phone: S. pneumoniae Prydeinig type 15B IgG (S) [Mass/Vol] <0.1 below low threshold >1.3 MP-Otolaryng ology-Sheffi eld Work Phone: S. pneumoniae Prydeinig type 18C IgG (S) [Mass/Vol] 0.2 ug/mL below low threshold >1.3 MP-Otolaryng ology-Sheffi eld Work Phone: S. pneumoniae Prydeinig type 19A IgG (S) [Mass/Vol] 0.4 ug/mL below low threshold >1.3 MP-Otolaryng ology-Sheffi eld Work Phone: S. pneumoniae Prydeinig type 33F IgG (S) [Mass/Vol] <0.1 below low threshold >1.3 MP-Otolaryng ology-Sheffi eld Work Phone: Comment on above: *This test was devel oped and its performance characteristics determined by [facility]. It has not been cleared or approved by the U.S. Food and Drug Administration. Performed At:[facility] [address] [employer] [address]Izvksrpbac Director: Elmer Gonzalez Ph.D., BCLSimeon (ABB)CLIA#: [id number]: S. pneumoniae Prydeinig type 6B IgG (S) [Mass/Vol] <0.1 below low threshold >1.3 MP-Otolaryng ology-Sheffi eld Work Phone: S. pneumoniae Prydeinig type 7F IgG (S) [Mass/Vol] 1.2 ug/mL below low threshold >1.3 MP-Otolaryng ology-Sheffi eld Work Phone: S. pneumoniae Prydeinig type 9V IgG (S) [Mass/Vol] 0.2 ug/mL below low threshold >1.3 MP-Otolaryng ology-Sheffi eld Work Phone: No Panel Informationon 01-31 <5 3 - 200 MP-Otolaryng ology-Sheffi eld Work Phone: Comment on above: DUE TO INHERENT IMPR ECISION OF METHODS, THE SUM OF COMPONENTS MAY DIFFER FROM TOTAL IGG BY MUCH 20%. 31 mg/dL 11 - 85 MP-Otolaryng ology-Sheffi eld Work Phone: 175 mg/dL 150 - 640 [facility]-Otolaryng ology-Sheffi eld Work Phone: 405 mg/dL below low threshold 490 - 1140 MP-Otolaryng ology-Sheffi eld Work Phone: Tobacco Screening.on 021 Tobacco use status CPHS b) No MP-Otolaryng ology-Sheffi eld Work Phone: Coronavirus 2019 RNA by PCR, Symptomaticon 01-03-2021 Date and time of symptom onset 12/31/2020 MP-Otolaryng ology-Sheffi eld Work Phone: Coronavirus 2019 RNA by PCR, Symptomatic Detected Abnormal See Below MP-Otolaryng ology-Sheffi eld Work Phone: Comment on above: SOURCE: Nasal, Nasop haryngealReference Range: Not Detected.This test has received FDA Emergency Use Authorization (EUA) and has been verified by [facility] ([facility]). This test is only authorized for the duration of time that circumstances exist to justify the authorization of the emergency use of in vitro diagnostic tests for the detection of SARS-CoV-2 virus and/or diagnosis of COVID-19 infection under section 564(b)(1) of the Act, 21 U.S.C. 360bbb-3(b)(1), unless the authorization is terminated or revoked sooner. [facility] is certified under CLIA-88 as qualified to perform high complexity testing. Testing is performed in the [facility] located at [address] [place] [address].SARS-CoV-2/Flu/RSV Multiplex Test: Fact sheet for providers: https://www.fda.gov/media/598028/downloadFact sheet for patients: https://www.fda.gov/media/049042/download Otheron 04-28-2020 Interpreted by: [id number]/29/21 16:14Indication======== Suspected Problem with Growth, Class 2 Obesity (BMI 35-39.9), Conceived via [employer], AMA Multigravida, Recurrent PregnancyLoss, Maternal Thyroid Disorder, Anxiety, Depression, Crohn's DIsease, Gestational Hypertension no Proteinurea History====== General HistorySmoking: NoHeight 157 cmHeight (ft) 5 ftHeight (in) 2 inPrevious OutcomesGravida 5Para 0Abortions (A) 4Miscarriages 4 Maternal Assessment Height 157 cmHeight (ft) 5 ftHeight (in) 2 inWeight 98 kgWeight (lb) 215 lbWeight gain 0 kgWeight gain (lb) 0 lbBMI 39.32 kg/m?Physical ExamInitial weight (lb) 215 lb ========= Fritz . Number of fetuses: 1 Dating====== Conception: IVF Embryo TransferEmbryo transfer on: 09/08/2019IVF / ET 5 dGA by IVF / ET 36 w + 0 dEDD by IVF / ET: 05/26/2020Ultrasound examination on: 04/28/2020GA by U/S based upon: AC, BPD, Femur, HCGA by U/S 35 w + 2 dEDD by U/S: 1Assigned: based on the IVF / ET date, selected on 10/13/2019Assigned GA 36 w + 0 dAssigned LAURA: 1Pregnancy length 280 d Growth Overview Exam date GA BPD (mm) HC (mm) AC (mm) FL(mm) HL (mm) EFW (g)01/07/2020 20w 0d 46.5 52% 172.9 35% 151.6 57% 31.3 32% 33.6 84% 332 51%03/22/2020 30w 5d 75.5 26% 281.0 17% 264.5 42% 57.3 19% 1,574 29%04/28/2020 36w 0d 85.3 16% 310.5 4% 332.5 87% 68.1 21% 2,880 57% Impression========= Known case of single umbilical artery. Class 2 Obesity (BMI 39), Conceived via [employer]. Advanced maternal age with no aneuploidyscreen. History of recurrent loss, thyroid disorder, anxiety, depression, Crohn's DIsease,and gestational hypertension. Follow up evaluation performed.-The head circumference is lagging behind the abdominal circumference and the femur length.The normally growing cerebellum suggests normal growth of the brain.Please note that the weight assessment is presently in the normal range (57%ile).-No malformations were identified on a limited survey.-BPP 11/05 with borderline polyhydramnios (MCKENNA- 23.1 cm).The constellation of increased amniotic fluid volume and the abdominal circumference at the87%ile might suggest risk for maternal gestational diabetes. Reportedly the patient undergoing repeated twice weekly evaluations of wellbeing (NST).Induction of labor is scheduled in one week. Daily movements? counts is recommended until delivered. The patient is aware of the above information.Thank you for allowing us to participate in the care of your patient. Follow-up======== Follow up as detailed above. General Evaluation Cardiac activity present. FHR 159 bpm. movements visualized.Presentation cephalic.Placenta Placental site: posterior.Umbilical cord Cord vessels: 2 vessel cord.Amniotic fluid Amount of AF: normal amount. MVP 8.0 cm. MCKENNA 23.1 cm. Q1 6.3 cm, Q2 8.0 cm, Q3 5.8cm, Q4 3.0 cm. Biometry StandardBPD 85.3 mm34w 3d 16% Hadlock OFD 109.7 mm 35% INTERGROWTH-21st HC 310.5 mm34w 5d 4% Hadlock Cerebellum tr 55.6 mm38w 1d 93% Hill AC 332.5 mm37w 1d 87% Hadlock Femur 68.1 mm35w 0d 21% Hadlock HC / AC 0.93 EFW 2,880 g36w 2d 57% Hadlock EFW (lb) 6 lbEFW (oz) 6 ozEFW by: Hadlock (BPD-AC-FL)ExtendedVp 2.5 mmHead / Face / NeckCephalic index 0.78 16% Nicolaides Extremities / Bony StrucFL / BPD 0.80 FL / HC 0.22 FL / AC 0.20 Other StructuresFHR 159 bpm Anatomy Cranium: NormalLateral ventricles: NormalMidline falx: NormalCavum septi pellucidi: NormalCerebellum: NormalCisterna magna: NormalHead / NeckRt lateral ventricle: NormalLt lateral ventricle: NormalThalami: NormalCerebellar lobes: Normal4-chamber view: suboptimalRVOT view: suboptimalLVOT view: suboptimalHeart / ThoraxSitus: Normal3-vessel view: suboptimalCardiac axis: NormalCardiac size: NormalCardiac rhythm: NormalDiaphragm: NormalStomach: visualizedKidneys: NormalBladder: visualizedAbdomenAbdom. wall: NormalStomach: correct situsRt kidney: NormalLt kidney: NormalLarge bowel: NormalWants to know gender: no Biophysical Profile 2: breathing movements2: Gross body movements2: tone2: Amniotic fluid volume8/8 Biophysical profile scoreInterpretation: normal Maternal Structures Uterus / CervixUterus: VisualizedCervix: Not visualizedOvaries / Tubes / AdnexaRt ovary: Not visualizedLt ovary: Not visualized Method====== Transabdominal ultrasound examination. View: Poor viewElectronically signed by: EDD 04/28/20 16:[address] Work Phone: Comment on above: ORDER REVISED TO A O B BIOPHYSICAL PROFILE (W/O NST) BY RADIOLOGIST; Original Order Number: [id number] ORDER REVISED TO A O B FOLLOW UP OR REPEAT SCAN BY RADIOLOGIST; Original Order Number: [id number] Hematologyon 04-26-2020 Hematocrit (Bld) [Volume fraction] 34.0 % below low threshold See Below [address] Work Phone: Comment on above: Reference Range: 36. 0 - 46.0 Hemoglobin (Bld) [Mass/Vol] 11.6 g/dL below low threshold See Below [address] Work Phone: Comment on above: Reference Range: 12. 0 - 16.0 MCV (RBC) [Entitic vol] 92 fL 80 - [address] Work Phone: Platelets (Bld) [#/Vol] 150 {x10E9/L} 150 - [address] Work Phone: RBC (Bld) [#/Vol] 3.70 {x10E12/L} below low threshold See Below [address] Work Phone: Comment on above: Reference Range: 4.0 0 - 5.20 WBC (Bld) [#/Vol] 0.0 {/100_WBC} 0.0 - 0.[address] Work Phone: WBC (Bld) [#/Vol] 10.9 {x10E9/L} 4.4 - 11.3 MP- [facility] [address] M Work Phone: Imm/Pathon 04-26-2020 Bacteria identified Aer cx Nom (Genital specimen) PATIENT: WILD YI LOCATION: [facility]#: [id number] : 76 AGE: SEX: F ORDERED BY: TJ CURRIE: VAG-RECTAL COLLECTED: 04/26/20 17:39ANTIBIOTICS AT NEISHA.: RECEIVED : 04/26/20 21:28SITE: Cervix R E S U L T S GROUP B STREP SCREEN FINAL 04/28/20 09:42 NEGATIVE FOR GROUP B BETA STREP. [id number] [place] [address] M Work Phone: Metabolic Panelon 04-26-2020 ALP [Catalytic activity/Vol] 81 U/L 33 - 110 [id number] [place] [address] M Work Phone: Anion gap [Moles/Vol] 14 mmol/L 10 - 20 [id number] [place] [address] M Work Phone: Bilirubin [Mass/Vol] 0.3 mg/dL 0.0 - 1.2 [id number] [place] [address] M Work Phone: Calcium [Mass/Vol] 8.9 mg/dL 8.6 - 10.3 MP-WSP C[facility] [address] M Work Phone: Chloride [Moles/Vol] 108 mmol/L above high threshold 98 - 107 [id number] [place] [address] M Work Phone: CO2 [Moles/Vol] 21 mmol/L 21 - 32 MP[facility]WSPC-W [facility] [address] M Work Phone: Creatinine [Mass/Vol] 0.69 mg/dL See Below [id number] [place] [address] M Work Phone: Comment on above: Reference Range: 0.5 0 - 1.05 Glucose [Mass/Vol] 120 mg/dL above high threshold 74 - 99 GO-BFGP-[id number] [facility] [address] M Work Phone: LDH [Catalytic activity/Vol] 169 U/L 84 - 246 HH-SYQA-AATOUniversity [facility] [address] M Work Phone: Potassium [Moles/Vol] 3.6 mmol/L 3.5 - 5.3 RE-JTWF-[id number] [facility] [address] M Work Phone: Protein [Mass/Vol] 5.4 g/dL below low threshold 6.4 - 8.2 UJ-GYMF-RAHNUniversity of [facility] [address] M Work Phone: Sodium [Moles/Vol] 139 mmol/L 136 - 145 -P -[facility] [address] M Work Phone: Urea nitrogen [Mass/Vol] 14 mg/dL 6 - 23 [place] [id number] Work Phone: Otheron 04-26-2020 Albumin BCP dye [Mass/Vol] 3.2 g/dL below low threshold 3.4 - 5.0 [facility] [address] M Work Phone: ALT With P-5'-P [Catalytic activity/Vol] 16 U/L 7 - 45 [place] [id number] Work Phone: Comment on above: Patients treated wit h Sulfasalazine may generate falsely decreased results for ALT. AST With P-5'-P [Catalytic activity/Vol] 21 U/L 9 - 39 [id number] of [facility] Medical Center [address] M Work Phone: Erythrocyte distribution width (RBC) [Ratio] 13.6 % See Below [facility] [address] Work Phone: Comment on above: Reference Range: 11. 5 - 14.5 MCHC (RBC) [Mass/Vol] 34.1 g/dL See Below [facility] [address] Work Phone: Comment on above: Reference Range: 32. 0 - 36.0 >60 >60 [place] [id number] Work Phone: Comment on above: CALCULATIONS OF RACQUEL MATED GFR ARE PERFORMED USING THE MDRD STUDY EQUATION FOR THE IDMS-TRACEABLE CREATININE METHODS. CLIN CHEM 2007;53:766-72 Total Protein, Urine Spoton 04-26-2020 Creatinine (U) [Mass/Vol] 555.0 mg/dL above high threshold See Below [facility] [address] Work Phone: Comment on above: Reference Range: 20. 0 - 320.0 Protein (U) [Mass/Vol] 49 mg/dL above high threshold 5 - 24 [place] [id number] Work Phone: Protein/Creatinine (U) [Ratio] 0.09 {mg/mg_Creat} See Below [facility] [address] Work Phone: Comment on above: Reference Range: 0.0 0 - 0.17 Uric Acid, Serumon Urate [Mass/Vol] 7.0 mg/dL above high threshold 2.3 - 6.7 [facility] [address] Work Phone: Comment on above: Venipuncture immedia tely after or during the administration of Metamizole may lead to falsely low results. Testing should be performed immediately prior to Metamizole dosing. BASIC METABOLIC PANELon 12-2 -2019 Anion gap [Moles/Vol] 13 mmol/L Normal 10 - 20 [facility] Comment on above: Performed By: #### B MP #### [facility] [address] [address] [place] [address] Calcium [Mass/Vol] 8.6 mg/dL Normal 8.6 - 10.3 [facility] Comment on above: Performed By: #### B MP #### [place] [address] [address] Chloride [Moles/Vol] 105 mmol/L Normal 98 - 107 [facility] Comment on above: Performed By: #### B MP #### [address] [address] Creatinine [Mass/Vol] 0.54 mg/dL Normal 0.50 - 1.05 [facility] [place] on above: Performed By: #### B MP #### [address] [address] GFR- AM. >60 Normal >60 [facility] [place] on above: Result Comment: CALC ULATIONS OF ESTIMATED GFR ARE PERFORMED USING THE MDRD STUDY EQUATION FOR THE IDMS-TRACEABLE CREATININE METHODS. CLIN CHEM 2007;53:766-72 Performed By: #### B MP #### [address] [address] GFR-NON AM. >60 Normal >60 [facility] Comment on above: Performed By: #### B MP #### [address] [address] Glucose [Mass/Vol] 99 mg/dL Normal 74 - 99 [facility] [facility] Comment on above: Performed By: #### B MP #### [address] [address] HCO3 (Bld) [Moles/Vol] 22 mmol/L Normal 21 - 32 [facility] [place] above: Performed By: #### B MP #### [address] [address] Potassium [Moles/Vol] 4.0 mmol/L Normal 3.5 - 5.3 [facility] [place] on above: Performed By: #### B MP #### [address] [address] Sodium [Moles/Vol] 136 mmol/L Normal 136 - 145 [facility] Comment on above: Performed By: #### B MP #### [address] [address] Urea nitrogen [Mass/Vol] 10 mg/dL Normal 6 - 23 [facility] Comment on above: Performed By: #### B MP #### [address] [address] CBC AND DIFFERENTIALon 03-22 -2020 % AUTOMATED IMMATURE GRAN 1.3 % High 0.0 - 0.9 [facility] Comment on above: Result Comment: Irma ture Granulocyte Count (IG) includes promyelocytes, myelocytes and metamyelocytes but does not include bands. Percent differential counts (%) should be interpreted in the context of the absolute cell counts (cells/L). Performed By: #### C BCDF #### [address] [address] Basophils (Bld) [#/Vol] 0.04 10*3/uL Normal 0.00 - 0.10 [facility] [place] on above: Performed By: #### C BCDF #### [address] [address] Basophils/100 WBC (Bld) 0.4 % Normal 0.0 - 2.0 [facility] Comment on above: Performed By: #### C BCDF #### [address] [address] Eosinophils (Bld) [#/Vol] 0.14 10*3/uL Normal 0.00 - 0.70 [facility] Comment on above: Performed By: #### C BCDF #### [address] [address] Eosinophils/100 WBC (Bld) 1.3 % Normal 0.0 - 6.0 [facility] Comment on above: Performed By: #### C BCDF #### [address] [address] Erythrocyte distribution width (RBC) [Ratio] 13.3 % Normal 11.5 - 14.5 [facility] Comment on above: Performed By: #### C BCDF #### [address] [address] Hematocrit (Bld) [Volume fraction] 38.3 % Normal 36.0 - 46.0 [facility] [place] on above: Performed By: #### C BCDF #### [address] [address] Hemoglobin (Bld) [Mass/Vol] 12.8 g/dL Normal 12.0 - 16.0 [facility] Comment on above: Performed By: #### C BCDF #### [address] [address] Lymphocytes (Bld) [#/Vol] 1.22 10*3/uL Normal 1.20 - 4.80 [facility] Comment on above: Performed By: #### C BCDF #### [address] [address] Lymphocytes/100 WBC (Bld) 11.2 % Normal 13.0 - 44.0 [facility] Comment on above: Performed By: #### C BCDF #### [address] [address] MCHC (RBC) [Mass/Vol] 33.4 g/dL Normal 32.0 - 36.0 [facility] Comment on above: Performed By: #### C BCDF #### [address] [address] MCV (RBC) [Entitic vol] 94 fL Normal 80 - 100 [facility] Comment on above: Performed By: #### C BCDF #### [address] [address] Monocytes (Bld) [#/Vol] 0.70 10*3/uL Normal 0.10 - 1.00 [facility] Comment on above: Performed By: #### C BCDF #### [address] [address] Monocytes/100 WBC (Bld) 6.4 % Normal 2.0 - 10.0 [facility] Comment on above: Performed By: #### C BCDF #### [address] [address] Neutrophils (Bld) [#/Vol] 8.69 10*3/uL High 1.20 - 7.70 [facility] Comment on above: Performed By: #### C BCDF #### [address] [address] Neutrophils/100 WBC (Bld) 79.4 % Normal 40.0 - 80.0 [facility] Comment on above: Performed By: #### C BCDF #### [address] [address] Nucleated RBC/100 WBC (Bld) [Ratio] 0.0 /100 WBC Normal 0.0 - 0.0 [facility] Comment on above: Performed By: #### C BCDF #### [address] [address] Platelets (Bld) [#/Vol] 193 10*3/uL Normal 150 - 450 [facility] Comment on above: Performed By: #### C BCDF #### [address] [address] RBC (Bld) [#/Vol] 4.06 x10E12/L Normal 4.00 - 5.20 [facility] Comment on above: Performed By: #### C BCDF #### [address] [address] WBC (Bld) [#/Vol] 10.9 10*3/uL Normal 4.4 - 11.3 [facility] Comment on above: Performed By: #### C BCDF #### [address] [address] Complete Blood Count + Diffe rentialon 03-22-2020 Basophils (Bld) [#/Vol] 0.04 {x10E9/L} See Below BD-LZBLL-Knh man 310 IVF Work Phone: Comment on above: Reference Range: 0.0 0 - 0.10 Basophils/100 WBC (Bld) 0.4 % 0.0 - 2.0 MR-FZMTW-Qcx man 310 IVF Work Phone: Eosinophils (Bld) [#/Vol] 0.14 {x10E9/L} See Below VM-JNTZV-Muv man 310 IVF Work Phone: [phone] Comment on above: Reference Range: 0.0 0 - 0.70 Eosinophils/100 WBC (Bld) 1.3 % 0.0 - 6.0 XS-INMMA-Vfm jayesh Marmolejo IVF Work Phone: [phone] Erythrocyte distribution width (RBC) [Ratio] 13.3 % See Below SN-YEGCR-Uck jayesh [facility]arm[facility] IVF Work Phone: [phone] Comment on above: Reference Range: 11. 5 - 14.5 Hematocrit (Bld) [Volume fraction] 38.3 % See Below JO-KSSJX-Dqp jayesh Marm[facility] IVF Work Phone: [phone] Comment on above: Reference Range: 36. 0 - 46.0 Hemoglobin (Bld) [Mass/Vol] 12.8 g/dL See Below XH-IZCKP-Gcr jayesh Marm[facility] IVF Work Phone: [phone] Comment on above: Reference Range: 12. 0 - 16.0 Lymphocytes (Bld) [#/Vol] 1.22 {x10E9/L} See Below XZ-CIMAV-Eln jayesh Marmole[facility] IVF Work Phone: [phone] Comment on above: Reference Range: 1.2 0 - 4.80 Lymphocytes/100 WBC (Bld) 11.2 % See Below NY-UZOSI-Lnp jayesh Maromlejo IVF Work Phone: [phone] Comment on above: Reference Range: 13. 0 - 44.0 MCHC (RBC) [Mass/Vol] 33.4 g/dL See Below VC-OAZHK-Egt jayesh Marmolejo IVF Work Phone: [phone] Comment on above: Reference Range: 32. 0 - 36.0 MCV (RBC) [Entitic vol] 94 fL 80 - 100 JK-SXKJX-Ryn jayesh Marmolejo IVF Work Phone: [phone] Monocytes (Bld) [#/Vol] 0.70 {x10E9/L} See Below GO-BFMWB-Ces jayesh Marm[place] IVF Work Phone: [phone] Comment on above: Reference Range: 0.1 0 - 1.00 Monocytes/100 WBC (Bld) 6.4 % 2.0 - 10.0 RR-EHALT-Twp jayesh Marm[facility] IVF Work Phone: [phone] Neutrophils/100 WBC (Bld) 79.4 % See Below PU-NMXJG-Qvd jayesh Marmolejo IVF Work Phone: [phone] Comment on above: Reference Range: 40. 0 - 80.0 Platelets (Bld) [#/Vol] 193 {x10E9/L} 150 - 450 EB-NLLNK-Ofe jayesh Marm[facility] IV[facility] Work Phone: [phone] RBC (Bld) [#/Vol] 4.06 {x10E12/L} See Below MG -OBGYN-Ris jayesh Marmolejo IVF Work Phone: [phone] Comment on above: Reference Range: 4.0 0 - 5.20 WBC (Bld) [#/Vol] 10.9 {x10E9/L} 4.4 - 11.3 MGKat OBGYN-Ris jayesh Marm[place] IVF Work Phone: [phone] WBC (Bld) [#/Vol] 0.0 {/100_WBC} 0.0 - 0.0 NATHAN OBGYN-Ris jayesh [facility]arm[facility] IVF Work Phone: [phone] Complete Blood Count + Differential 1.3 % above high threshold 0.0 - 0.9 LB-AIWUJ-Trp jayesh [facility]arm[facility] IV[facility] Work Phone: [phone] Comment on above: Immature Granulocyte Count (IG) includes promyelocytes, myelocytes and metamyelocytes but does not include bands. Percent differential counts (%) should be interpreted in the context of the absolute cell counts (cells/L). Complete Blood Count + Differential 8.69 {x10E9/L} above high threshold See Below UV-YKOPO-Mby jayesh Marmolejo IVF Work Phone: [phone] Comment on above: Reference Range: 1.2 0 - 7.70 GC + Chlamydia By Amplified Detectionon 03-22-2020 C. trachomatis rRNA WESLEY+probe Ql (Unsp spec) Negative Negative QK-VBPJ-CUOV [employer] [address] M Work Phone: N. gonorrhoeae rRNA WESLEY+probe Ql (Unsp spec) Negative Negative HX-SVYT-UWUV [employer] [address] M Work Phone: Comment on above: SOURCE: Urine HEPATIC FUNCTION PANELon Albumin [Mass/Vol] 3.0 g/dL Low 3.4 - 5.0 [facility] Comment on above: Performed By: #### H EPFP #### [address] [address] ALP [Catalytic activity/Vol] 62 U/L Normal 33 - 110 [facility] Comment on above: Performed By: #### H EPFP #### [address] [address] ALT [Catalytic activity/Vol] 17 U/L Normal 7 - 45 [facility] Comment on above: Result Comment: Aylin ents treated with Sulfasalazine may generate falsely decreased results for ALT. Performed By: #### H EPFP #### [address] [address] AST [Catalytic activity/Vol] 16 U/L Normal 9 - 39 [facility] Comment on above: Performed By: #### H EPFP #### [address] [address] Bilirubin [Mass/Vol] 0.3 mg/dL Normal 0.0 - 1.2 [facility] Comment on above: Performed By: #### H EPFP #### [address] [address] Bilirubin.direct [Mass/Vol] 0.0 mg/dL Normal 0.0 - 0.3 [facility] Comment on above: Performed By: #### H EPFP #### [address] [address] Protein [Mass/Vol] 5.5 g/dL Low 6.4 - 8.2 [facility] Comment on above: Performed By: #### H EPFP #### [address] [address] Hepatic Function Panelon Albumin BCP dye [Mass/Vol] 3.0 g/dL below low threshold 3.4 - 5.0 LE-BQGDR-Qbt man 310 IVF Work Phone: ALP [Catalytic activity/Vol] 62 U/L 33 - 110 YE-TKMUQ-Lev man 310 IVF Work Phone: [phone] ALT With P-5'-P [Catalytic activity/Vol] 17 U/L 7 - 45 YS-NIBKA-Rka man [facility] Work Phone: [phone] Comment on above: Patients treated wit h Sulfasalazine may generate falsely decreased results for ALT. AST With P-5'-P [Catalytic activity/Vol] 16 U/L 9 - 39 NO-YOILG-Eje man [facility] Work Phone: [phone] Bilirubin [Mass/Vol] 0.3 mg/dL 0.0 - 1.2 CX-LKPXN-Bax man [facility] Work Phone: [phone] Bilirubin.direct [Mass/Vol] 0.0 mg/dL 0.0 - 0.3 HI-QYOVO-Qas [place] [address] IVF Work Phone: [phone] Protein [Mass/Vol] 5.5 g/dL below low threshold 6.4 - 8.2 RV-JMCJC-Gxj man [facility] Work Phone: [phone] Metabolic Panelon 03-22-2020 Anion gap [Moles/Vol] 13 mmol/L 10 - 20 OD-GPOXV-Mtt man [facility] IV[facility] Work Phone: [phone] Calcium [Mass/Vol] 8.6 mg/dL 8.6 - 10.3 MG-OBG YN-Ris man [facility] Work Phone: [phone] Chloride [Moles/Vol] 105 mmol/L 98 - 107 GS-PGWJM-Ema man [facility] Work Phone: [phone] CO2 [Moles/Vol] 22 mmol/L 21 - 32 MG-OBGYN- Ris man 310 IVF Work Phone: [phone] Creatinine [Mass/Vol] 0.54 mg/dL See Below SB-LIKCL-Gjk man [facility] Work Phone: [phone] Comment on above: Reference Range: 0.5 0 - 1.05 Glucose [Mass/Vol] 99 mg/dL 74 - 99 MG-OBG YN-Ris man 310 IVF Work Phone: Potassium [Moles/Vol] 4.0 mmol/L 3.5 - 5.3 OY-XOTIQ-Rbd man 310 IVF Work Phone: Sodium [Moles/Vol] 136 mmol/L 136 - 145 MG-OBG YN-Ris man 310 IVF Work Phone: Urea nitrogen [Mass/Vol] 10 mg/dL 6 - 23 UV-YLOJM-Bdb man 310 IVF Work Phone: Otheron 03-22-2020 Interpreted by: SREE CONTEH MAY03/22/20 16:35Indication======== Suspected Problem with Growth, Class 2 Obesity (BMI 35-39.9), Conceived via AssistedReproductive Technology, AMA Multigravida, RecurrentPregnancy Loss, Maternal Thyroid Disorder, Anxiety, Depression, Crohn's DIsease History====== General HistorySmoking: NoHeight 157 cmHeight (ft) 5 ftHeight (in) 2 inPrevious OutcomesGravida 5Para 0Abortions (A) 4Miscarriages 4 Maternal Assessment Height 157 cmHeight (ft) 5 ftHeight (in) 2 inWeight 98 kgWeight (lb) 215 lbWeight gain 0 kgWeight gain (lb) 0 lbBMI 39.32 kg/m?Physical ExamInitial weight (lb) 215 lb ========= Fritz . Number of fetuses: 1 Dating====== Conception: IVF Embryo TransferEmbryo transfer on: 09/08/2019IVF / ET 5 dGA by IVF / ET 30 w + 5 dEDD by IVF / ET: 05/26/2020Ultrasound examination on: 03/22/2020GA by U/S based upon: AC, BPD, Femur, HCGA by U/S 30 w + 3 dEDD by U/S: 1Assigned: based on the IVF / ET date, selected on 10/13/2019Assigned GA 30 w + 5 dAssigned LAURA: 05/26/2020regnancy length 280 d Growth Overview Exam date GA BPD (mm) HC (mm) AC (mm) FL(mm) HL (mm) EFW (g)01/07/2020 20w 0d 46.5 52% 172.9 35% 151.6 57% 31.3 32% 33.6 84% 332 51%03/22/2020 30w 5d 75.5 26% 281.0 17% 264.5 42% 57.3 19% 1,574 29% Impression========= Follow up evaluation performed. complicated by AMA, IVF, obesity, and recurrent loss.-Normal interval growth-No malformations were identified on a limited survey-A two vessel cord was noted today, which was not seen at her anatomic assessment, likely secondaryto poor image quality.-BPP 11/05 with normal AFIThe patient is aware of the above information. We discussed that SUA is rarely associated withgrowth restriction and abnormalities of the heart and kidneys. Follow upevaluation of growth is scheduled at 36 weeks unless indicated sooner. Thank you for allowingus to participate in the care of your patient. General Evaluation Cardiac activity present. FHR 134 bpm. movements visualized.Presentation cephalic.Placenta Placental site: posterior.Umbilical cord Cord vessels: 2 vessel cord.Amniotic fluid Amount of AF: normal amount. MVP 6.9 cm. MCKENNA 22.1 cm. Q1 6.9 cm, Q2 5.0 cm, Q3 4.4cm, Q4 5.8 cm. Biometry StandardBPD 75.5 mm30w 2d 26% Hadlock OFD 100.5 mm 55% INTERGROWTH-21st HC 281.0 mm30w 6d 17% Hadlock Cerebellum tr 37.1 mm30w 4d 25% Hill AC 264.5 mm30w 4d 42% Hadlock Femur 57.3 mm30w 0d 19% Hadlock HC / AC 1.06 EFW 1,574 g30w 1d 29% Hadlock EFW (lb) 3 lbEFW (oz) 8 ozEFW by: Hadlock (BPD-AC-FL)ExtendedVp 5.2 mmHead / Face / NeckCephalic index 0.75 11% Nicolaides Extremities / Bony StrucFL / BPD 0.76 FL / HC 0.20 FL / AC 0.22 Other StructuresFHR 134 bpm Anatomy Cranium: NormalLateral ventricles: NormalMidline falx: NormalCavum septi pellucidi: NormalCerebellum: NormalCisterna magna: NormalHead / NeckRt lateral ventricle: NormalLt lateral ventricle: NormalThalami: NormalCerebellar lobes: Normal4-chamber view: suboptimalRVOT view: suboptimalLVOT view: suboptimalHeart / ThoraxSitus: Normal3-vessel view: suboptimalCardiac axis: NormalCardiac size: NormalCardiac rhythm: NormalDiaphragm: NormalStomach: visualizedKidneys: NormalBladder: visualizedAbdomenAbdom. wall: NormalStomach: correct situsRt kidney: NormalLt kidney: NormalLarge bowel: NormalWants to know gender: no Biophysical Profile 2: breathing movements2: Gross body movements2: tone2: Amniotic fluid volume8/8 Biophysical profile score Maternal Structures Uterus / CervixUterus: VisualizedCervix: Not visualizedOvaries / Tubes / AdnexaRt ovary: Not visualizedLt ovary: Not visualized Method====== Transabdominal ultrasound examination. View: Poor viewElectronically signed by: May,03/22/20 16:35 Normal CM-ZHOMC-Uix man 310 IVF Work Phone: Comment on above: ORDER REVISED TO A O B BIOPHYSICAL PROFILE (W/O NST) BY RADIOLOGIST; Original Order Number: [id number] ORDER REVISED TO A O B FOLLOW UP OR REPEAT SCAN BY RADIOLOGIST; Original Order Number: [id number] >60 >60 ZZ-QMBCR-Vwd man 310 IVF Work Phone: Comment on above: CALCULATIONS OF RACQUEL MATED GFR ARE PERFORMED USING THE MDRD STUDY EQUATION FOR THE IDMS-TRACEABLE CREATININE METHODS. CLIN CHEM 2007;53:766-72 TOTAL PROTEIN, URINE SPOTon 03-22-2020 CREATININE,URINE Canceled Normal [facility] [place] on above: Order Comment: TEST TOTAL PROTEIN, URINE SPOT WAS CANCELLED, 03/22/2020 14:58 PT. CAME TO [facility] FROM OFFICE PHLEBS UNABLE TO CONTAIN BLOOD, URINE SAMPLE WAS TAKEN AT OFFICE. Performed By: #### T PS2 #### [address] [place] [address] T. PROTEIN/CREAT RATIO Canceled Normal [facility] Comment on above: Order Comment: TEST TOTAL PROTEIN, URINE SPOT WAS CANCELLED, 03/22/2020 14:58 PT. CAME TO [facility] FROM OFFICE PHLEBS UNABLE TO CONTAIN BLOOD, URINE SAMPLE WAS TAKEN AT OFFICE. Performed By: #### T PS2 #### [address] [place] [address] TOTAL PROT,URINE SPOT Canceled Normal [facility] [place] on above: Order Comment: TEST TOTAL PROTEIN, URINE SPOT WAS CANCELLED, 03/22/2020 14:58 PT. CAME TO [facility] FROM OFFICE PHLEBS UNABLE TO CONTAIN BLOOD, URINE SAMPLE WAS TAKEN AT OFFICE. Performed By: #### T PS2 #### [address] [place] [address] URIC ACIDon 03-22-2020 Urate [Mass/Vol] 4.9 mg/dL Normal 2.3 - 6.7 [facility] Comment on above: Result Comment: Tasha puncture immediately after or during the administration of Metamizole may lead to falsely low results. Testing should be performed immediately prior to Metamizole dosing. Performed By: #### U TORRES #### [address] [place] [address] Uric Acid, Serumon 0 Urate [Mass/Vol] 4.9 mg/dL 2.3 - 6.7 MG-OBGYN -Ris man 310 IVF Work Phone: Comment on above: Venipuncture immedia tely after or during the administration of Metamizole may lead to falsely low results. Testing should be performed immediately prior to Metamizole dosing. Cult, Urineon 03-10-2020 Bacteria identified Cx Nom (U) PATIENT: WILD YI [place] [facility] [place] [id number] : 76 AGE: SEX: F ORDERED BY: RUBY CHOU: URINE COLLECTED: 03/10/20 16:47ANTIBIOTICS AT NEISHA.: RECEIVED : 03/11/20 00:30SITE: Unspecified R E S U L T S URINE CULTURE,BACTERIAL FINAL 03/12/20 08:13 NO SIGNIFICANT GROWTH. TG-KHSYR-Zbf man 310 IVF Work Phone: HCG,BETA-QUANTITATIVEon 07-0 [place] [address] mIU/mL [facility] Comment on above: Result Comment: Low- level positive HCG results can be seen in early , in zulema- or post-menopausal females due to normal pituitary HCG production, or with analytic interference. Repeat testing in 48-72 hours can aid in assessing for as results should double in this time period. FSH measurement is recommended in zulema- or post-menopausal females as concurrent elevation of FSH can support pituitary production as the source of the HCG elevation. . Total HCG measurement is performed using the Nhan Malcolm Access Immunoassay which detects intact HCG and free beta HCG subunit. This test is not indicated for use as a tumor marker. HCG testing is performed using a different test methodology at [facility] than other [facility]. Direct result comparison should only be made within the same method. REF VALUES NON FEMALE <5 MALES <5 Performed By: #### H QU #### [facility] [address] [place] [address] HCG,BETA-QUANTITATIVEon 06-2 HCG,BETA-QUANTITATI VE 390 mIU/mL [facility] Comment on above: Result Comment: Low- level positive HCG results can be seen in early , in zulema- or post-menopausal females due to normal pituitary HCG production, or with analytic interference. Repeat testing in 48-72 hours can aid in assessing for as results should double in this time period. FSH measurement is recommended in zulema- or post-menopausal females as concurrent elevation of FSH can support pituitary production as the source of the HCG elevation. . Total HCG measurement is performed using the Nhan Ashford Access Immunoassay which detects intact HCG and free beta HCG subunit. This test is not indicated for use as a tumor marker. HCG testing is performed using a different test methodology at [facility] than [facility]. Direct result comparison should only be made within the same method. REF VALUES NON FEMALE <5 MALES <5 Performed By: #### H CGQU #### [facility] [address] [place] [address] PROGESTERONEon 09-08-2019 PROGESTERONE 22.8 ng/mL Normal [facility] Comment on above: Result Comment: Prog esterone is performed using the Nhan Ashford Access Immunoassay. Progesterone testing is performed using a different test methodology at [facility] than other [facility]. Direct result comparison should only be made within the same method. REF VALUES MALE <0.2-0.8 FOLLICULAR PHASE <0.2-1.5 LUTEAL PHASE 7.4-15.4 POSTMENOPAUSAL <0.2-0.2 1ST TRIMESTER 12.0-84.0 2ND TRIMESTER 10.2-58.8 3RD TRIMESTER 46.5-160 Performed By: #### P LILO #### [facility] [address] [place] [address] ESTRADIOLon 09-02-2019 ESTRADIOL 294 pg/mL Normal [facility] Comment on above: Result Comment: Estr adiol measurement is performed using the Nhan Malcolm Access Immunoassay. Estradiol testing is performed using a different test methodology at [facility] than [facility]. Direct result comparison should only be made within the same method. REF VALUES FOLLICULAR PHASE 20-144 MID CYCLE 64-357 LUTEAL PHASE 56-214 POSTMENOPAUSE < 32 PREPUBERTY < 20 FEMALE 10-18Y 8-110 MALE 10-18Y < 20 ADULT MALE < 40 Performed By: #### E STRA #### [facility] [address] [place] [address] PROGESTERONEon 09-02-2019 PROGESTERONE 0.4 ng/mL Normal [facility] Comment on above: Result Comment: Prog esterone is performed using the Nhan Ashford Access Immunoassay. Progesterone testing is performed using a different test methodology at [facility] than [facility]. Direct result comparison should only be made within the same method. REF VALUES MALE <0.2-0.8 FOLLICULAR PHASE <0.2-1.5 LUTEAL PHASE 7.4-15.4 POSTMENOPAUSAL <0.2-0.2 1ST TRIMESTER 12.0-84.0 2ND TRIMESTER 10.2-58.8 3RD TRIMESTER 46.5-160 Performed By: #### P LILO #### [facility] [address] [place] [address] Progesterone, Serumon 2019 Progesterone [Mass/Vol] ng/mL OC-JKUJB-Asm man 310 IVF Work Phone: Comment on above: Note new reference r ravinder as of 06/01/2019.REF VALUESMALE <0.3- 1.2 FOLLICULAR PHASE <0.3- 1.4 LUTEAL PHASE 3.3-25.6 MID-LUTEAL PHASE 4.4-28.0POSTMENOPAUSAL <0.3- 0.7 FEMALES: 1ST TRIMESTER 11.2- 90.0 2ND TRIMESTER 25.6- 89.4 3RD TRIMESTER 48.4-422.5 .Patients receiving DHEA-S supplements may show false elevation ofprogesterone for results near 1.0 ng/mL. Contact laboratory [phone] if alternative testing is needed. FLUOROSCOPY, UP TO 1 HRon FLUOROSCOPY, UP TO 1 HR Patient Name: WILD YI STUDY: FLUOROSCOPY, UP TO 1 HR;; 06/11/2019 2:34 pm INDICATION: LEFT CALCANEAL SPUR RESECTION. COMPARISON: None. ACCESSION NUMBER(S): [id number] ORDERING CLINICIAN: CHRISTOPHER HARRIS TECHNIQUE: 2 C-arm views FINDINGS: The initial C-arm view demonstrates a calcaneal posterior enthesophyte, and globular calcification superior to this at the Achilles tendon. There has been resection of these entities on the 2nd image submitted, with 2 anchors at the os calcaneus posteriorly. IMPRESSION: Postsurgical changes as described. Electronically signed by: PORFIRIO ANDRADE MD [facility] History and Physical - Surgi donnie Update < 30 dayson 06-11-2019 History and Physical - Surgical Update < 30 days History & Physical Reviewed: /Lactating: Are You no Are You Currently Breastfeedingno (1) I have reviewed the History and Physical dated: 07-Jun-2019 History and Physical reviewed and relevant findings noted. Patient examined to review pertinent physical findings.: No significant changes Home Medications Reviewed: no changes noted Allergies Reviewed: no changes noted This patient has been seen and discussed with the attending physician responsible for performing the procedure: yes Signatures/Attestation/Cert ification: Note Completion: I am a: Resident/Fellow Attending AttestationI saw and evaluated the patient. I personally obtained the mobley and critical portions of the history and physical exam or was physically present for mobley and critical portions performed by the resident/fellow. I reviewed the resident/fellows documentation and discussed the patient with the resident/fellow. I agree with the resident/fellows medical decision making as documented in the note. I personally evaluated the patient [id number] Attending Provider Inpatient Certification StatementI certify this patients need for inpatient care based on the above documentation including; the order to admit as inpatient, the anticipated length of stay, diagnosis, problem list and plan of care, and discharge plan. Electronic Signatures: Christopher Harris (CARLOS) (Signed 11-Jun-2019 14:53) Authored: Signatures/Attestation/Cert ification Co-Signer: History & Physical Reviewed, Signatures/Attestation/Cert ification Jayne Martin (CARLOS (Resident)) (Signed 11-Jun-2019 12:32) Authored: History & Physical Reviewed, Signatures/Attestation/Cert ification Last Updated: 11-Jun-2019 14:53 by Christopher Harris (CARLOS) References: 1. Data Referenced From Patient Profile - Preop v2 10-Jun-2019 13:58 Normal [facility] Operative Reports - [place] 06-11-2019 Operative Reports - [address] AIRPORT GUIDE: Cruz Robles DPM, PGY-3 PREOPERATIVE DIAGNOSES: 1. Ruptured left Achilles tendon. 2. Posterior calcaneal spur, left, Elfego's. POSTOPERATIVE DIAGNOSES: 1. Ruptured left Achilles tendon. 2. Posterior calcaneal spur, left, Elfego's. PROCEDURE: 1. Repair of chronic Achilles tendon rupture, left. 2. Resection of calcaneal spur, left calcaneus. 3. Injection of platelet rich plasma, left Achilles. 4. Gastroc recession, left. ESTIMATED BLOOD LOSS: Minimal. IMPLANTS: Gia knotless system and 10X system. ANESTHESIA: General. HEMOSTASIS: Thigh tourniquet set at 300 mmHg for the duration of case. ESTIMATED BLOOD LOSS: Minimal. INDICATIONS: This is a 39-year-old female who presents to the operating room for the above procedures. The nature of her condition, anticipated procedure, postop recovery, risks, and complications including, but not limited to numbness, tingling, burning, over and under correction, problems with healing of soft tissue or bone, chronic pain, disability, need for further surgery, need for use of hardware, re-rupture have been explained to the patient and patient's family in detail. All questions answered to the patient's satisfaction. No promises or guarantees have been given. PROCEDURE IN DETAIL: Under mild sedation, patient was brought to the operating room, placed on the operating table in the supine position. General anesthesia was induced. The patient was then flipped to the prone. The left lower extremity was then scrubbed, prepped, and draped in usual aseptic manner. Next, attention was directed to the left lower extremity. Using a #15 blade, a linear incision was made on posterior aspect of the Achilles tendon. The incision was further down using both blunt and sharp dissection to the layer of the tendon. The paratenon was reflected back both medially and laterally. A large Elfego's was noted. The Achilles tendon was then reflected both medially and laterally and transected distally to expose the large Elfego's deformity. The Elfego's deformity was then transected off using a saw followed by a rasp to smooth it off. This was checked under multiple views of C-arm and noted to be adequately removed. Within the tendon itself, was a large calcaneal osteophyte, which was removed in total as well and passed off the field for Pathology. The incision was extended distally for the Achilles repair. The Achilles was then anchored back onto the calcaneus using the channel opener outsoles's recommended technique for the above said Gia anchors. Achilles was noted to be taut. It was reapproximated along the linear incision of the Achilles using absorbable sutures. The incision was flushed using copious amounts of normal sterile saline and closed in a layered fashion using Monocryl 3-0 and 3-0 nylon. The Achilles deformity still noted to be in place, so a gastroc recession was then determined to be utilized. A linear incision was made overlying the gastroc aponeurosis. It was further done using blunt and sharp dissection to the layer of the gastrocs tendon. A gastroc recession was then performed, releasing the equinus deformity. After this was performed, there was no longer tension across the Achilles. Then, flushed with copious amounts of normal sterile saline and closed in a layered fashion with Monocryl and nylon. The Achilles tendon was then injected with the platelet rich plasma, which was spun down using the channel opener outsoles's recommended technique. The patient was then placed in a dry sterile dressing, Royal bandage, followed by a gravity equinus posterior splint. The patient tolerated the procedure and anesthesia well in apparent satisfactory condition and was transferred to the PACU with vital signs stable and vascular status intact to all of her digits for full monitoring prior to discharge home and strict nonweightbearing course to the left lower extremity. SPECIMENS: Achilles Elfego's deformity. COMPLICATIONS: None. Christopher Harris DPM EST EST DICTATION NUMBER: [id number] INTERNAL JOB NUMBER: [id number] Electronic Signatures: Christopher Harris (CARLOS) (Signed on 06-Jul-2019 23:08) Authored Unsigned, Draft (SYS GENERATED) (Entered on 25-Jun-2019 13:30) Entered Unsigned, Draft (SYS GENERATED) (Entered on 24-Jun-2019 11:37) Entered Last Updated: 06-Jul-2019 23:08 by Christopher Harris (CARLOS) Normal [facility] Histologyon 06-11-2019 [place] [facility] Name ANTONIETTA YI Pathologist: DILLON PAZ MD Date of Procedure: 06/11/2019 Date Received: 06/11/2019 Date Reported 06/16/2019 Submitting Physician: CHRISTOPHER HARRIS DPM Location: Other External # FINAL DIAGNOSIS RIGHT FOOT BONE SPUR CALCANEOUS, RESECTION: -- BONE AND ATTACHED FIBROCARTILAGINOUS TISSUE WITH DEGENERATIVE CHANGES AND FOCAL BONE REMODELING. Electronically Signed Out By DILLON PAZ MD/GODFREY By the signature on this report, the individual or group listed as making the Final Interpretation/Diagnosis certifies that they have reviewed this case. Microscopic Description: All slides are examined microscopically and the diagnosis is stated above. Clinical History: Calcaneal spur, achilles rupture Left calcaneal spur resection/achilles repair with c-arm/platelet Specimens Submitted As: A: RIGHT FOOT BONE SPUR CALCANEOUS Gross Description: Received in formalin, labeled with the patient's name and hospital number and right foot bone spur calcaneous , is a single fragment of white to pink/houser firm tissue/bone measuring 2.5 x 1.5 x 1.5 cm. Heat Treating Operator sections are submitted in one cassette following decalcification. RLM rlm/06/11/2019 Normal [facility] Comment on above: Performed By: #### P #### [facility] [address] [address] Muñoz [facility] [place] [address] Preop Checkliston 06-11-2019 Preop Checklist Preop Checklist: Preop Checklist: Arrival [id number] Arrival Time10:13 Procedure TypeLEFT ACHILLES TENDON REPAIR Temperature C36.9 degrees C Temperature F98.4 degrees F Heart Rate72 beats per minute Respiratory Rate20 breath per minute Blood Pressure Lsimujqs818 mm/Hg Blood Pressure Dzdyotizv01 mm/Hg ID Band Onyes Allergy Bandno known allergies Consent Signedpending H&P Completeyes Anesthesia Assessment Completedpending EKG Performednot ordered HCG Urine TestNEGATIVE SCD's Appliedyes Cardiovascular Assessment: Extremitieswarm Respiratory Assessment: Respirationsunlabored Air Exchangeequal Breath Soundsclear Neurological Assessment: Level of Consciousnessalert Mobilitymoves all extremities Able to Express Selfyes Age Appropriateyes Emotional Statuscalm Preop Education: Surgical Site Infection Preventionyes Pain Scales and Managementyes Language / Communication: Language / CommunicationEnglish Electronic Signatures: Scarlet Stein (EVA) (Signed 11-Jun-2019 10:16) Authored: Preop Checklist Last Updated: 11-Jun-2019 10:16 by Scarlet Stein) Normal [facility] CBC AND DIFFERENTIALon 06-06 % AUTOMATED IMMATURE GRAN 0.3 % Normal 0.0 - 0.9 [facility] Comment on above: Result Comment: Irma ture Granulocyte Count (IG) includes promyelocytes, myelocytes and metamyelocytes but does not include bands. Percent differential counts (%) should be interpreted in the context of the absolute cell counts (cells/L). Performed By: #### C BCDF #### [address] [address] Basophils (Bld) [#/Vol] 0.06 10*3/uL Normal 0.00 - 0.10 [facility] Comment on above: Performed By: #### C BCDF #### [facility] [address] [place] [address] Basophils/100 WBC (Bld) 0.8 % Normal 0.0 - 2.0 [facility] Comment on above: Performed By: #### C BCDF #### [address] [address] Eosinophils (Bld) [#/Vol] 0.22 10*3/uL Normal 0.00 - 0.70 [facility] Comment on above: Performed By: #### C BCDF #### [address] [address] Eosinophils/100 WBC (Bld) 2.9 % Normal 0.0 - 6.0 [facility] Comment on above: Performed By: #### C BCDF #### [address] [address] Erythrocyte distribution width (RBC) [Ratio] 12.3 % Normal 11.5 - 14.5 [facility] Comment on above: Performed By: #### C BCDF #### [address] [address] Hematocrit (Bld) [Volume fraction] 42.6 % Normal 36.0 - 46.0 [facility] Comment on above: Performed By: #### C BCDF #### [address] [address] Hemoglobin (Bld) [Mass/Vol] 13.9 g/dL Normal 12.0 - 16.0 [facility] Comment on above: Performed By: #### C BCDF #### [address] [address] Lymphocytes (Bld) [#/Vol] 1.79 10*3/uL Normal 1.20 - 4.80 [facility] Comment on above: Performed By: #### C BCDF #### [address] [address] Lymphocytes/100 WBC (Bld) 23.8 % Normal 13.0 - 44.0 [facility] Comment on above: Performed By: #### C BCDF #### [address] [address] MCHC (RBC) [Mass/Vol] 32.6 g/dL Normal 32.0 - 36.0 [facility] Comment on above: Performed By: #### C BCDF #### [address] [address] MCV (RBC) [Entitic vol] 95 fL Normal 80 - 100 [facility] Comment on above: Performed By: #### C BCDF #### [address] [address] Monocytes (Bld) [#/Vol] 0.41 10*3/uL Normal 0.10 - 1.00 [facility] Comment on above: Performed By: #### C BCDF #### [address] [address] Monocytes/100 WBC (Bld) 5.5 % Normal 2.0 - 10.0 [facility] Comment on above: Performed By: #### C BCDF #### [address] [address] Neutrophils (Bld) [#/Vol] 5.02 10*3/uL Normal 1.20 - 7.70 [facility] Comment on above: Performed By: #### C BCDF #### [address] [address] Neutrophils/100 WBC (Bld) 66.7 % Normal 40.0 - 80.0 [facility] Comment on above: Performed By: #### C BCDF #### [address] [address] Nucleated RBC/100 WBC (Bld) [Ratio] 0.0 /100 WBC Normal 0.0 - 0.0 [facility] Comment on above: Performed By: #### C BCDF #### [address] [address] Platelets (Bld) [#/Vol] 271 10*3/uL Normal 150 - 450 [facility] Comment on above: Performed By: #### C BCDF #### [address] [address] RBC (Bld) [#/Vol] 4.50 x10E12/L Normal 4.00 - 5.20 [facility] Comment on above: Performed By: #### C BCDF #### [address] [address] WBC (Bld) [#/Vol] 7.5 10*3/uL Normal 4.4 - 11.3 [facility] Comment on above: Performed By: #### C BCDF #### [address] [address] COMPREHENSIVE PANELon 2019 Albumin [Mass/Vol] 4.1 g/dL Normal 3.4 - 5.0 [facility] Comment on above: Performed By: #### C MP #### [address] [address] ALP [Catalytic activity/Vol] 45 U/L Normal 33 - 110 [facility] Comment on above: Performed By: #### C MP #### [address] [address] ALT [Catalytic activity/Vol] 31 U/L Normal 7 - 45 [facility] Comment on above: Result Comment: Aylin ents treated with Sulfasalazine may generate falsely decreased results for ALT. Performed By: #### C MP #### [address] [address] Anion gap [Moles/Vol] 11 mmol/L Normal 10 - 20 [facility] Comment on above: Performed By: #### C MP #### [address] [address] AST [Catalytic activity/Vol] 23 U/L Normal 9 - 39 [facility] Comment on above: Performed By: #### C MP #### [address] [address] Bilirubin [Mass/Vol] 0.3 mg/dL Normal 0.0 - 1.2 [facility] Comment on above: Performed By: #### C MP #### [address] [place] [address] Calcium [Mass/Vol] 9.1 mg/dL Normal 8.6 - 10.3 [facility] Comment on above: Performed By: #### C MP #### [address] [place] [address] Chloride [Moles/Vol] 104 mmol/L Normal 98 - 107 [facility] Comment on above: Performed By: #### C MP #### [address] [place] [address] Creatinine [Mass/Vol] 0.76 mg/dL Normal 0.50 - 1.05 [facility] Comment on above: Performed By: #### C MP #### [address] [place] [address] GFR- AM. >60 Normal >60 [facility] Comment on above: Result Comment: CALC ULATIONS OF ESTIMATED GFR ARE PERFORMED USING THE MDRD STUDY EQUATION FOR THE IDMS-TRACEABLE CREATININE METHODS. CLIN CHEM 2007;53:766-72 Performed By: #### C MP #### [address] [place] [address] GFR-NON AM. >60 Normal >60 [facility] Comment on above: Performed By: #### C MP #### [address] [place] [address] Glucose [Mass/Vol] 101 mg/dL High 74 - 99 [facility] Comment on above: Performed By: #### C MP #### [address] [place] [address] HCO3 (Bld) [Moles/Vol] 28 mmol/L Normal 21 - 32 [facility] Comment on above: Performed By: #### C MP #### [address] [place] [address] Potassium [Moles/Vol] 4.0 mmol/L Normal 3.5 - 5.3 [facility] Comment on above: Performed By: #### C MP #### [address] [place] [address] Protein [Mass/Vol] 6.3 g/dL Low 6.4 - 8.2 [facility] Comment on above: Performed By: #### C MP #### [facility] [address] [place] [address] Sodium [Moles/Vol] 139 mmol/L Normal 136 - 145 [facility] Comment on above: Performed By: #### C MP #### [facility] [address] [facility] [address] Urea nitrogen [Mass/Vol] 16 mg/dL Normal 6 - 23 [facility] Comment on above: Performed By: #### C MP #### [facility] [address] [facility] [place] [address] Progesterone, Serumon 2019 Progesterone [Mass/Vol] 9.5 ng/mL [id number] man 310 IVF Work Phone: Comment on above: Patients receiving D HEA-S supplements may show false elevation ofprogesterone for results near 1.0 ng/mL. Contact laboratory [phone] if alternative testing is needed.REF VALUESMALE <0.2-0.8 FOLLICULAR PHASE <0.2-1.5 LUTEAL PHASE 7.4-15.4 POSTMENOPAUSAL <0.2-0.2 1ST TRIMESTER 12.0-84.0 2ND TRIMESTER 10.2-58.8 3RD TRIMESTER 46.5-160 Progesterone, Serumon 2019 Progesterone [Mass/Vol] 0.2 ng/mL [id number] man 310 IVF Work Phone: Comment on above: Patients receiving D HEA-S supplements may show false elevation ofprogesterone for results near 1.0 ng/mL. Contact laboratory [phone] if alternative testing is needed.REF VALUESMALE <0.2-0.8 FOLLICULAR PHASE <0.2-1.5 LUTEAL PHASE 7.4-15.4 POSTMENOPAUSAL <0.2-0.2 1ST TRIMESTER 12.0-84.0 2ND TRIMESTER 10.2-58.8 3RD TRIMESTER 46.5-160 CBC AND DIFFERENTIALon 03-15 % AUTOMATED IMMATURE GRAN 1.8 % High 0.0 - 0.[address] [facility] Comment on above: Result Comment: Perc ent differential counts (%) should be interpreted in the context of the absolute cell counts (cells/L). Performed By: #### C BCDF #### [facility] [address] [place] [address] Basophils (Bld) [#/Vol] 0.11 10*3/uL High 0.00 - 0.[address] [facility] Comment on above: Performed By: #### C BCDF #### [facility] [address] [place] [address] Basophils/100 WBC (Bld) 0.9 % Normal 0.0 - 2.[address] [facility] Comment on above: Performed By: #### C BCDF #### [facility] [address] [place] [address] Eosinophils (Bld) [#/Vol] 0.10 10*3/uL Normal 0.00 - 0.[address] [facility] Comment on above: Performed By: #### C BCDF #### [facility] [address] [place] [id number] Eosinophils/100 WBC (Bld) 0.8 % Normal 0.0 - 6.[address] [facility] Comment on above: Performed By: #### C BCDF #### [facility] [address] [place] [id number] Erythrocyte distribution width (RBC) [Ratio] 13.2 % Normal 11.5 - 14.[address] [facility] Comment on above: Performed By: #### C BCDF #### [facility] [address] [place] [id number] Hematocrit (Bld) [Volume fraction] 45.4 % Normal 36.0 - 46.[address] [facility] Comment on above: Performed By: #### C BCDF #### [facility] [address] [place] [address] Hemoglobin (Bld) [Mass/Vol] 14.9 g/dL Normal 12.0 - 16.[address] [facility] Comment on above: Performed By: #### C BCDF #### [facility] [address] [place] [phone] Lymphocytes (Bld) [#/Vol] 2.48 10*3/uL Normal 1.20 - 4.[address] [facility] Comment on above: Performed By: #### C BCDF #### [facility] [address] [place] [address] Lymphocytes/100 WBC (Bld) 20.8 % Normal 13.0 - 44.[address] [facility] Comment on above: Performed By: #### C BCDF #### [facility] [address] [place] [address] MCHC (RBC) [Mass/Vol] 32.8 g/dL Normal 32.0 - 36.[address] [facility] Comment on above: Performed By: #### C BCDF #### [facility] [address] [place] [address] MCV (RBC) [Entitic vol] 94 fL Normal 80 - [address] [facility] Comment on above: Performed By: #### C BCDF #### [facility] [address] [place] [address] Monocytes (Bld) [#/Vol] 0.59 10*3/uL Normal 0.10 - 1.[address] [facility] Comment on above: Performed By: #### C BCDF #### [facility] [address] [place] [address] Monocytes/100 WBC (Bld) 4.9 % Normal 2.0 - 10.[address] [facility] Comment on above: Performed By: #### C BCDF #### [facility] [address] [place] [address] Neutrophils (Bld) [#/Vol] 8.43 10*3/uL High 1.20 - 7.[address] [facility] Comment on above: Performed By: #### C BCDF #### [facility] [address] [place] [address] Neutrophils/100 WBC (Bld) 70.8 % Normal 40.0 - 80.[address] [facility] Comment on above: Performed By: #### C BCDF #### [facility] [address] [place] [address] Platelets (Bld) [#/Vol] 216 10*3/uL Normal 150 - [address] [facility] Comment on above: Performed By: #### C BCDF #### [facility] [address] [place] [address] RBC (Bld) [#/Vol] 4.84 x10E12/L Normal 4.00 - 5.[address] [facility] Comment on above: Performed By: #### C BCDF #### [facility] [address] [place] [address] WBC (Bld) [#/Vol] 11.9 10*3/uL High 4.4 - 11.3 [facility] Comment on above: Performed By: #### C BCDF #### [facility] [address] [place] [address] HCG,BETA-QUANTITATIVEon 02-28 HCG,BETA-QUANTITATI VE <[address] [facility] Comment on above: Result Comment: Low- level positive HCG results can be seen in early , in zulema- or post-menopausal females due to normal pituitary HCG production, or with analytic interference. Repeat testing in 48-72 hours can aid in assessing for as results should double in this time period. FSH measurement is recommended in zulema- or post-menopausal females as concurrent elevation of FSH can support pituitary production as the source of the HCG elevation. . Total HCG measurement is performed using the [employer] Access Immunoassay which detects intact HCG and free beta HCG subunit. This test is not indicated for use as a tumor marker. HCG testing is performed using a different test methodology at [facility] than [facility]. Direct result comparison should only be made within the same method. REF VALUES NON FEMALE <5 MALES <5 Performed By: #### H CGQU #### [facility] [address] [place] [address] PROGESTERONEon 03-02-2019 PROGESTERONE 19.0 ng/mL Normal [facility] Comment on above: Result Comment: Prog esterone is performed using the [employer] Access Immunoassay. Progesterone testing is performed using a different test methodology at [facility] than [facility]. Direct result comparison should only be made within the same method. REF VALUES MALE <0.2-0.8 FOLLICULAR PHASE <0.2-1.5 LUTEAL PHASE 7.4-15.4 POSTMENOPAUSAL <0.2-0.2 1ST TRIMESTER 12.0-84.0 2ND TRIMESTER 10.2-58.8 3RD TRIMESTER 46.5-160 Performed By: #### P LILO #### [facility] [address] [place] [address] HCG,BETA-QUANTITATIVEon 11 HCG,BETA-QUANTITATI VE 30 mIU/mL [facility] Comment on above: Result Comment: Low- level positive HCG results can be seen in early , in zulema- or post-menopausal females due to normal pituitary HCG production, or with analytic interference. Repeat testing in 48-72 hours can aid in assessing for as results should double in this time period. FSH measurement is recommended in zulema- or post-menopausal females as concurrent elevation of FSH can support pituitary production as the source of the HCG elevation. . Total HCG measurement is performed using the [employer] Access Immunoassay which detects intact HCG and free beta HCG subunit. This test is not indicated for use as a tumor marker. HCG testing is performed using a different test methodology at [facility] than other [facility]. Direct result comparison should only be made within the same method. REF VALUES NON FEMALE <5 MALES <5 Performed By: #### H CGQU #### [facility] [address] [place] [address] PROGESTERONEon 01-21-2019 PROGESTERONE 17.6 ng/mL Normal [facility] Comment on above: Result Comment: Prog esterone is performed using the [employer] Access Immunoassay. Progesterone testing is performed using a different test methodology at [facility] than other [facility]. Direct result comparison should only be made within the same method. REF VALUES MALE <0.2-0.8 FOLLICULAR PHASE <0.2-1.5 LUTEAL PHASE 7.4-15.4 POSTMENOPAUSAL <0.2-0.2 1ST TRIMESTER 12.0-84.0 2ND TRIMESTER 10.2-58.8 3RD TRIMESTER 46.5-160 Performed By: #### P LILO #### [facility] [address] [place] [address] Imm/Pathon 07-29-2018 Cytology report Cyto stain.thin prep Doc (Cvx/Vag) MP-Reproduct claudy Endocrinolog yMary 206 Work Phone: Otheron 07-29-2018 05 Date of Procedure: 07/29/2018 Pathologist[facility], CytologyDate Reported: 08/05/2018Date Received: 07/29/2018Submitting Physician: JAMSHID CURRIE MD FINAL CYTOLOGICAL INTERPRETATIONA. THINPREP PAP CERVICAL: Specimen adequacy: SATISFACTORY FOR EVALUATION. Quality Indicator: Endocervical/transformation zone component is present. General Categorization: NEGATIVE FOR INTRAEPITHELIAL LESION OR MALIGNANCY. HIGH RISK HPV TEST RESULT: HPV GENOTYPE 16 NEGATIVE HPV GENOTYPE 18 NEGATIVE HPV GENOTYPE OTHER NEGATIVE Reference Range: Negative Testing for high-risk (HR) type of human papilloma virus (HPV) is performed bythe [employer] lisa HPV Test. The lisa HPV Test is a qualitative polymerase chainreaction that amplifies DNA of HPV16, HPV18 and 12 other high-risk HPV types(31, 33, 35, 39, 45, 51, 52, 56, 58, 59, 66, and 68) associated with cervicalcancer and its precursor lesions. A positive result indicates the presence ofHPV DNA due to one or more of the 14 genotypes: 16, 18, 31, 33, 35, 39, 45, 51,52, 56, 58, 59, 66, and 68. Negative results indicate HPV DNA concentrationsare undetectable or below the pre-set threshold for detection. False negativeresults may be associated with unoptimized sampling. A negative HR HPV resultdoes not exclude the possibility of future cytologic HSIL or underlying CIN2-3or cancer.This test is approved for cervical specimens by the US Food and DrugAdministration. Results of this test should be interpreted in conjunction withthe patient's Pap test results. Please refer to ASCCP current guidelines forthe use of HPV DNA testing, result interpretation, and patient management. The performance of this test was verified by the [facility] at [facility]. The lab iscertified under the Clinical Laboratory Amendments of 1988 (CLIA 88) asqualified to perform high complexity clinical laboratory testing.This specimen has been analyzed by the [employer] Imaging System ([employer]an automated imaging and review system, which assists the laboratory inevaluating cells on ThinPrep Pap tests. Following automated imaging, selectedfields from every slide were reviewed by a torpedo man and/or pathologist.Electronically Signed Out By [facility], Cytology//Katarina By the signature on this report, the individual or group listed as making theFinal Interpretation/Diagnosis certifies that they have reviewed this case.Educational Note:Cervical cytology is a screening procedure primarily for squamous cancers andprecursors and has associated false-negative and false-positive results asevidenced by published data. Your patient's test should be interpreted in thiscontext, together with patient's history and clinical findings. Regularsampling and follow-up of unexplained clinical signs and symptoms arerecommended to minimize false negative results. Clinical HistoryDate of Last Menstrual Period: 07/08/2018Other Clinical Conditions:HPV Testing for All Interpretations - Include HPV Genotype Source of SpecimenA: THINPREP PAP CERVICAL MP[facility]Reproduct [facility] Work Phone: Mamm - Screening Mammogram w / Tomosynthesison 07-28-2018 MG Breast screening Interpreted by: OSBALDO LEROY08/04/18 15:48MRN: [id number] Name: WILD YI STUDY:DIGITAL MAMM SCREENING W/ FERNIE; 07/28/2018 1:40 pm ORDERING CLINICIAN:CLOTILDE ESPINOSA INDICATION:Screening. Family history breast cancer in paternal aunt and paternalgrandfather. COMPARISON:Mammogram dated 05/08/2013 from outside institution has now becomeavailable for comparison. FINDINGS:2D and tomosynthesis images were reviewed at 1 mm slice thickness. There are areas of scattered fibroglandular tissue. No suspiciousmasses or calcifications are identified. IMPRESSION:No mammographic evidence of malignancy. BI-RADS CATEGORY:Category: 1 - Negative.Recommendation: 1 Year Screening. For any future breast imaging appointments, please call [phone]). Patient letter sent SOFNOR I personally reviewed the images/study and I agree with the findingsas stated. This study was interpreted at [facility], [place], [place].Electronically signed by: MONSTER LEROY 08/04/18 15:48 Normal MP-Reproduct [facility] 206 Work Phone: Comment on above: ORDER REVISED TO A D IGITAL MAMM SCREENING W/ FERNIE BY RADIOLOGIST Otheron 07-28-2018 Please click on the link to view the study images Normal MP-Reproduct [facility] 206 Work Phone: ABDOMEN OR KUBon 02-27-2018 ABDOMEN OR KUB STUDY:ABDOMEN OR KUB ; 02/27/2018 4:57 pmINDICATION:STONES.COMPARI SON:KUB 08/20/2017ACCESSION NUMBER(S):[id number] ERING CLINICIAN:Og CullenFINDINGS:Right upper quadrant clips. No definite renal pelvic calculi.Nonobstructive bowel gas pattern. Moderate colonic stool burden. Nofindings of organomegaly.IMPRESSION:No definite renal calculi. Normal [facility] ABDOMEN OR KUBon 07-31-2017 ABDOMEN OR KUB STUDY:ABDOMEN OR KUB ; 07/31/2017 4:40 pmINDICATION:HX OF STONES.COMPARISON:No available comparisonsACCESSION NUMBER(S):[id number] ERING CLINICIAN:Og ForresterIQUE:Two views of the abdomenFINDINGS:5 mm calculus in the region of the left mid ureter at the level ofthe transverse process of L3 vertebral body.Cholecystectomy surgical clips in the right upper quadrant.The bowel gas pattern is nonspecific and nonobstructive. Thevisualized osseous structures are intact. Visualized lung bases areclear.IMPRESSION:A 5 mm calculus at L3 level, likely represent a small left ureteralcalculus, not significantly changed in location in comparison withthe prior exam. Normal [facility] OPERATIVE REPORTon 8 OPERATIVE REPORT Name: YOGI YI MMR: [id number]: Og Cullen M.D.DATE OF SURGERY: 07/31/2017ANESTHESIA: General.1ST AIRPORT GUIDE:PREOP DIAGNOSIS: Left ureteral calculus.POSTOP DIAGNOSIS: Left ureteral calculus.OPERATION: Left extracorporeal shock wave lithotripsy.SURGICAL INDICATIONS: Wild has a 5 mm midleft ureteral calculus. She wasactually scheduled for lithotripsy yesterday and after 200 shocks, the machinebroke irreparably and the procedure had to be terminated. She presents now tocomplete the procedure. Risks, benefits, and alternative therapies werereviewed with the patient. Consent obtained. The KUB film shows the stonehas migrated 2 inches down to the L3-L4 interspace.OPERATIVE REPORT: The patient was brought to the operating room afterreceiving prophylactic antibiotics and put to sleep by Anesthesia. She waspositioned supine on the lithotripsy table with a wedge of the right flank andthe stone was clearly seen in the mid ureter and treated with 3000 shocks andmaximum KV of 6, and appeared to fragment, although there appeared to be someareas of incomplete fragmentation. The patient was awakened, taken torecovery room in satisfactory condition. She will be discharged home withFlomax, Percocet, and Cipro. She will strain the urine to catch the stonefragments, follow up in the office in 3 weeks with a KUB film. Og CULLEN M.D.[facility]/[id number]: 08/01/2017 14:03:15 cc: Og Cullen M.D. [facility] WILD YI [id number] [place] [address] [id number]: Og Cullen,OPERATIVE REPORTFax: [phone]/S: Og Cullen, 08/06/17 1218Electronically Signed __[facility] WILD YI [id number] [place] [address] [id number]: Og Cullen,OPERATIVE REPORT Normal [facility] ABDOMEN OR KUBon 07-30-2017 ABDOMEN OR KUB STUDY:ABDOMEN OR KUB ; 07/30/2017 2:09 pmINDICATION:KIDNEY STONES.COMPARISON:None.ACCE SSION NUMBER(S):[id number] ERING CLINICIAN:Og CullenFINDINGS:Nonobstructiv e bowel gas pattern.The study is of limited evaluation of pneumoperitoneum on supineimaging, however no gross evidence of free air is noted.A 4 mm radiodensity is present at the left flank at the L3 level.This would be suspicious for a left ureteral calculus given thepatient's history. If further evaluation or confirmation is needed CTcorrelation is recommended.Visualized lungs bases are clear.Osseous structures demonstrate no acute bony changes.Other findings: None significantIMPRESSION:1. Probable left ureteral calculus at the L3 level. Normal [facility] CULTURE URINE W CCon 018 CULTURE URINE W CC URINE CULTURE URINE CONTAMINATED WITH NORMAL SKIN LASHELL NO URINARY PATHOGENS ISOLATED SUGGEST REPEAT IF CLINICALLY INDICATED Normal [facility] Comment on above: Performed By: #### M URINE ####[facility] [place] [address] History and Physical Estefany 0 07-30-2017 History and Physical PAT [facility] Pt Name: WILD YI [id number] [facility] MR # [id number] [address] : 76* * * * * * * * History and Physical PAT * * * * * * * *History of Present IllnessDate of Ouwrjoi72/02/18ource of InformationPatientChief Complaint/Present IllnesKidney stoneHPIPatient woke up in the middle of the night week ago with severe left flank pain. It hasbeen almost constant since. It radiates anteriorly. It reaches a 10/10 at its worst. Shedenies hematuria, dysuria, and urinary frequency. Evaluation revealed kidney stones.PROBLEM LISTProblem ListMedical ProblemsAnxiety and depressionCrohn's diseaseHypothyroidKidney stonesSurgical ProblemsHistory of cholecystectomyHistory of colonoscopyHistory of foot surgeryHistory of laparoscopyHistory of tonsillectomy and adenoidectomySocial History ProblemsNo illicit drug useNonsmokerOccasional alcohol consumptionFamily HistoryRelation not specified for:Heart diseaseHypertensionKidney stonesSeizuresAllergies/Cornell e MedicationsAllergiesCoded Allergies:NO KNOWN ALLERGENS (07/30/17)Home Meds ReviewedI have reviewed the patient's Home Medication List.Home Medication List may have been reported by sources other than providers caring for thepatient at the time this document was created. Information may not be all inclusive.Reconcile MedicationsAspirin EC *(Aspirin Enteric Coated *) 81 MG TAB.EC 81 MG PO DAILY, Ref 0(Reported)Entered as Reported by NIMESH ADAME on 07/30/17 1334Last Action: Reviewed on 07/30/171334 by NIMESH ADAME DCephalexin Monohydrate*(Keflex 500MG Capsule*) 500 MG UDCAP 500 MG PO BID #20, Ref 0(Reported)Entered as Reported by NIMESH ADAME on 07/30/17 1330Last Action: Reviewed on 07/30/171334 by NIMESH ADAME DHYDROcodone Bit 5mg AND Acetaminophen 300mg *(VICODIN 5mg-300mg *) 1 EACH TABLET 1 EACH PO Q4PRN PRN PAIN #15, Ref 0(Reported)Entered as Reported by NIMESH ADAME on 07/30/17 1330Last Action: Reviewed on 07/30/171334 by NIMESH ADAME DLevothyroxine Sodium *(Synthroid *) 50 MCG TABLET 50 MCG PO DAILY@6AM, Ref 0(Reported)Entered as Reported by NIMESH ADAME on 07/30/17 1332Last Action: Reviewed on 07/30/17 133 by NIMESH ADAME DMelatonin *3 MG TABLET 3 MG PO QHSPRN PRN SLEEP, Ref 0(Reported)Entered as Reported by NIMESH ADAME on 07/30/171333Last Action: Reviewed on 07/30/171334 by NIMESH ADAME DMultivitamin *1 TABLET TABLET 1 TABLET PO DAILY, Ref 0(Reported)Entered as Reported by NIMESH ADAME on 07/30/171331Last Action: Reviewed on 07/30/171334 by NIMESH ADAME DPrasterone (Dhea)(Dhea) 25 MG CAPSULE 25 MG PO BID, Ref 0(Reported)Entered as Reported by NIMESH ADAME on 07/30/174Last Action: Reviewed on 07/30/171334 by NIMESH ADAME DSertraline HCl *(Zoloft *) 100 MG TABLET 100 MG PO DAILY #90, Ref 0(Reported)Entered as Reported by NIMESH ADAME on 07/30/171Last Action: Reviewed on 07/30/171334 by NIMESH ADAME DUbidecarenone(Coq-10) 100 MG CAPSULE 200 MG PO DAILY, Ref 0(Reported)Entered as Reported by NIMESH ADAME on 07/30/171332Last Action: Reviewed on 07/30/171334 by NIMESH ADAME DDiscontinued MedicationsEstradiol*(Estra ce*) 2 MG TABLET 2 MG PO DAILY #30, Ref 0(Reported)Discontinued reason: Completed RegimenLast Action: Discontinued on 07/30/171334 by NIMESH ADAME DReview of SystemsReview of SystemsPostop Anesthesia ProblemsNoneROS CommentsGeneralNegative: fevers, chills, sweats, weakness, weight loss, recent illnessHEENTNegative: dental problems, sore throat, nasal congestion, hearing loss, tinnitusPositive: Wears contactsCVSNegative: chest pain, palpitations, shortness of breath, dizzinessPulmonaryNegative: orthopnea, dyspnea on exertion, hemoptysis, shortness of breath, cough, wheezing, asthma, COPDGINegative: abdominal pain, vomiting, diarrhea, constipation, black stools, bloody stools,hematemesisPositive: Occasional nausea with severe flank painGUPositive: As aboveMusculoskeletal/lympha ticsNegative: back pain, leg pain, neck pain, joint pain, ankle swelling, leg swelling,swollen glandsSkinNegative: rash, lesionsNeuroNegative: fainting, dizziness, difficulty walking, difficulty with speech, syncope, nearsyncopePositive: Occasional mild headachePsychPositive: anxiety, depression (she denies suicidal/homicidal ideation)EndocrineNegative: weight loss, weight gain, poor wound healing, neuropathyPatient is able to climb a flight of stairs without chest pain or shortness of breathPhysical ExamVital SignsTemp (C)36.2Fvpdn06Wyqcadksxudg6 6Blood Yufduchp207/79Pulse-Ox%99He ight - Tsgs0Xauqib9Foynlp - Ok144RlfxadgvsvHvjhusv AppearanceWell Developed/Nourished, Alert, Oriented X 3, Cooperative. Patient appears uncomfortableHEENTHead Atraumatic, Normocephalic, PERRL, Hearing grossly normal, Mucosa Moist, PatentAirway.NeckSupple, Non tender, Without JVD, Without Thyromegaly.CardiovascularR ate WNL, Rhythm regular.RespiratoryBilatera lly Clear, No Respiratory Distress.NeuroSpeech Clear, Moves all extremities.AbdomenBowel Sounds Present, Abdomen soft, Non-Tender, No distention. Left CVA tendernessExtremityNo Pedal Edema.Assessment and Plan (PAT)Assessment and PlanAssessment and PlanPatient is a 37-year-old female for ESWL today. 07/28/2017 UA/CS, CBC, PT/PTT, and BMPenclosed in chart. HCG prior to surgery todayReport Date 07/30/17Electronically Signed Esig Date Esig Nay Sunshine 07/30/17 1352 Normal [facility] OPERATIVE REPORTon OPERATIVE REPORT Name: YOGI YI MMR: [id number]: Og Cullen M.D.DATE OF SURGERY: 07/30/2017ANESTHESIA:1ST AIRPORT GUIDE:PREOP DIAGNOSIS: Left proximal ureteral calculus.POSTOP DIAGNOSIS: Left proximal ureteral calculus.OPERATION: Attempted extracorporeal shock wave lithotripsy. Procedureterminated due to machine malfunction.SURGICAL INDICATIONS: Wild has a 4-mm stone and significant pain secondaryto a stone impacted to the left UPJ. She presents now for lithotripsy.Risks, benefits, and alternative therapies have been reviewed with thepatient, consent obtained.OPERATIVE REPORT: The patient was brought to the operating room, put to sleepby Anesthesia. She was positioned supine on the lithotripsy table and thestone was clearly visualized in the AP and CC images and we began shockingstone at a KV of 3. At 200 shocks, the machine malfunctioned and the errorcode suggested there was a problem with the coupling and the patient accordingto the technicians was at risk for electric shock or electrocution and so forthe patient's safety, the procedure was immediately terminated. The patientwas awakened, taken to recovery room in satisfactory condition. We willreschedule the lithotripsy within the next 24 hours with a functional machine. Og CULLEN M.D.[facility]/MedQ/[id number]: 07/30/2017 17:48:32 cc: Og Cullen M.D.Fax: [phone] [facility] WILD YI [id number] [place] [address] [id number]: Og Cullen,OPERATIVE REPORTE/S: Og Cullen, MD08/06/17 1218Electronically Signed __[facility] WILD YI [id number] [place] [address] [id number]: Og Cullen,OPERATIVE REPORT Normal [facility] PREG URINE QUALon 07-30-2017 UR HCG QUAL Negative Normal [facility] Comment on above: Order Comment: Speci men Comment: PT IS GOING TO OPS TODAYCampus: MAIN Performed By: #### L UPREG ####[facility] [address] [place] [id number] BASIC METABOLIC PANELon 07-01 Anion gap 3 molar conc 9 mmol/L Normal 6-18 [facility] Comment on above: Order Comment: Is pa tient fasting? NO Performed By: #### L BMP, LGFRP ####[facility] [address] [place] [id number] Calcium mass conc 9.1 mg/dL Normal 8.6-10.3 [facility] Comment on above: Order Comment: Is pa tient fasting? NO Performed By: #### L BMP, LGFRP ####[facility] [address] [place] [address] Chloride molar conc 103 mmol/L Normal 98-107 [facility] Comment on above: Order Comment: Is pa tient fasting? NO Performed By: #### L BMP, LGFRP ####[facility] F[address]okfnl81858 [place] [address] CO2 molar conc 29 mmol/L Normal 21-32 [facility] Comment on above: Order Comment: Is pa tient fasting? NO Performed By: #### L BMP, LGFRP ####[facility] [address]ao[address]46 [place] [address] Creatinine mass conc 1.18 mg/dL High 0.5-1.05 [facility] Comment on above: Order Comment: Is pa tient fasting? NO Performed By: #### L BMP, LGFRP ####[facility] [address]ut[address] [place] [address] Glucose mass conc 87 mg/dL Normal 74-99 [facility] Comment on above: Order Comment: Is pa tient fasting? NO Performed By: #### L BMP, LGFRP ####[facility] [address] [place] [id number] Potassium molar conc 4.1 mmol/L Normal 3.5-5.3 [facility] Comment on above: Order Comment: Is pa tient fasting? NO Performed By: #### L BMP, LGFRP ####[facility] [address] [place], [place] [address] Sodium molar conc 137 mmol/L Normal 136-145 [facility] Comment on above: Order Comment: Is pa tient fasting? NO Performed By: #### L BMP, LGFRP ####[facility] [address] [place], [place] [address] Urea nitrogen mass conc 22 mg/dL Normal 6-23 [facility] Comment on above: Order Comment: Is pa tient fasting? NO Performed By: #### L BMP, LGFRP ####[facility] [address] [place], [place] [address] CBC AUTOon 07-28-2017 Erythrocyte distribution width Auto Ratio (RBC) 12.6 % Normal 11.5-14.5 [facility] Comment on above: Performed By: #### L CBC ####[facility] [address] [place] [address] Hematocrit Auto Volume Fraction (Bld) 37.0 % Normal 36.0-48.0 [facility] Comment on above: Performed By: #### L CBC ####[facility] [address] [place], [place] [address] Hemoglobin mass conc (Bld) 11.9 g/dL Low 12.0-15.0 [facility] Comment on above: Performed By: #### L CBC ####[facility] [address] [place] [address] MCH Auto Entitic mass (RBC) 31.6 pg Normal 25.4-34.6 [facility] Comment on above: Performed By: #### L CBC ####[facility] [address] [place] [address] MCHC Auto mass conc (RBC) 32.2 g/dL Normal 30.0-36.0 [facility] Comment on above: Performed By: #### L CBC ####[facility] [address]34[address] [place] [address] MCV Auto Entitic volume (RBC) 98.4 fL High 79.0-98.0 [facility] Comment on above: Performed By: #### L CBC ####[facility] L[address]rdwfzck[address]12 [place] [address] Platelet mean volume Auto Entitic volume (Bld) 10.8 fL Normal 8.4-11.9 [facility] Comment on above: Performed By: #### L CBC ####[facility] [address]ytgc14306 [place] [address] Platelets Auto #/vol (Bld) 262 10*3/uL Normal 140-440 [facility] Comment on above: Performed By: #### L CBC ####[facility] [address] [place] [address] RBC Auto #/vol (Bld) 3.76 10*6/uL Normal 3.5-5.5 [facility] Comment on above: Performed By: #### L CBC ####[facility] [address] [place] [address] WBC Auto #/vol (Bld) 8.6 10*3/uL Normal 3.9-11.0 [facility] Comment on above: Performed By: #### L CBC ####[facility] [address] [place] [address] GLOMERULAR FILTRATION RATE E STon 07-28-2017 GFR/1.73 sq M predicted among non-blacks MDRD vol rate/area (S/P/Bld) 58 mL/min/{1.73_m2} Low > 60 [facility] Comment on above: Order Comment: Is pa tient fasting? NO Performed By: #### L BMP, LGFRP ####[facility] [address]fqymbvu[address] [place] [address] IF AMER 67 mL/MIN Normal > 60 [facility] Comment on above: Order Comment: Is pa tient fasting? NO Result Comment: Effe ctive 08/24/14:CKD-EPI equation / based on IDMS traceable creatinine.Continue to use the CREAT CLR-DOSE (Cockgroft-Gault)value for determining medication dose. Performed By: #### L BMP, LGFRP ####[facility] [address]hktmkd54501 [place] [address] PROTIMEon 07-28-2017 INR Coag RelTime (PPP) 1.07 {INR} Normal 0.9-1.1 [facility] Comment on above: Order Comment: List patient's anticoagulant: NONE SPECIFIED Result Comment: * NO TE: INR therapeutic range of 2.0 - 3.0 is recommended for prophylaxis to prevent embolism, venous thrombosis, pulmonary embolism, and myocardial infarction. INR therapeutic range of 2.5 - 3.5 is recommended for patients with mechanical heart valves. * Performed By: #### L PT, LPTT ####[facility] [address] [place] [address] PT SEC 11.8 seconds Normal 9.8-12.7 [facility] Comment on above: Order Comment: List patient's anticoagulant: NONE SPECIFIED Performed By: #### L PT, LPTT ####[facility] [address] [place], [place] [address] PTTon 07-28-2017 aPTT Coag time (Bld) 34.1 s Normal 25.0-36.0 [facility] Comment on above: Order Comment: List patient's anticoagulant: NONE SPECIFIED Result Comment: The APTT is no longer used for monitoring unfractionatedheparin therapy. For monitoring heparin therapy, use theHeparin Assay. Performed By: #### L PT, LPTT ####[facility] [address] [place] [id number] URINALYSIS COMPLETEon 2017 APPEARANCE CLEAR Normal CLEAR [facility] Comment on above: Performed By: #### L UA ####[facility] [address]foq[address]69 [place] [address] BILIRUBIN Negative Normal NEGATIVE [facility] Comment on above: Performed By: #### L UA ####[facility] Eb[address]ulbnbl[address]21 [place] [address] BLOOD Negative Normal NEGATIVE [facility] Comment on above: Performed By: #### L UA ####[facility] [address] [place], [place] [address] Color Nom (U) Yellow Normal YELLOW [facility] Comment on above: Performed By: #### L UA ####[facility] Rdgfqsfvii90991 [place] [address] GLUCOSE Negative Normal NEGATIVE [facility] Comment on above: Performed By: #### L UA ####[facility] [address] [place] [address] KETONE Negative Normal NEGATIVE [facility] Comment on above: Performed By: #### L UA ####[facility] [address]uf[address]ay12[address] [place] [address] LEUK ESTERASE Negative Normal NEGATIVE [facility] Comment on above: Performed By: #### L UA ####[facility] [address]ifregdt03076 [place] [address] NITRITE Negative Normal NEGATIVE [facility] Comment on above: Performed By: #### L UA ####[facility] [address] [place] [address] PH 5.0 Normal 5.0-9.0 [facility] Comment on above: Performed By: #### L UA ####[facility] [address] [place] [address] Protein mass conc Negative Normal NEGATIVE [facility] Comment on above: Performed By: #### L UA ####[facility] [address]wgmq32[address] [place] [address] SPEC GRAV 1.008 Normal 1.005-1.030 [facility] Comment on above: Performed By: #### L UA ####[facility] X[address]edznc[address] [place] [address] UROBIL Negative Normal NEGATIVE [facility] Comment on above: Performed By: #### L UA ####[facility] [address] [place] [address] Otheron 05-08-2013 Please click on the link to view the study images Normal MP-Reproduct [facility] 206 Work Phone: Vital Signs Date Time Vital Sign Value Performing Clinician Facility 11-27-2022 14:30-0400 Body height 157.48 cm Aquiles Escobedo Other [facility] Other 11-27-2022 14:30-0400 Body mass index (BMI) [Ratio] 40.05 kg/m2 Aquiles Escobedo Other [facility] Other 11-27-2022 14:30-0400 Body weight 99.34 kg Aquiles Ball Other [facility] Other 11-27-2022 14:30-0400 Diastolic blood pressure 86 mm[Hg] Aquiles Ball Other [facility] Other 11-27-2022 14:30-0400 Respiratory rate 12 /min Aquiles Ball Other [facility] Other 11-27-2022 14:30-0400 Systolic blood pressure 126 mm[Hg] Aquiles Ball Other [facility] Other 12-28-2021 08:44-0400 Body height 157.48 cm Aquiles E Ball Work Phone: [facility]kpt-TkknquDxTer[facility] 2100 DO Work Phone: 12-28-2021 08:44-0400 Body mass index (BMI) [Ratio] 42.07 kg/m2 Aquiles E Ball Work Phone: [facility]Sanl[facility]ohgj-CnwyeuDxTer[facility] 2100 DO Work Phone: 12-28-2021 08:44-0400 Body surface area Derived from formula 2.03 m2 Aquiles E Ball Work Phone: VQ-Njikflhrdl-UbpoarDxTerity 2100 DO Work Phone: 12-28-2021 08:44-0400 Body weight 104.32 kg Aquiles E Ball Work Phone: KX-Pjdrewdvyg-QlxbfrDxTerity 2100 DO Work Phone: 12-04-2021 09:12-0400 Body height 157.48 cm Aquiles E Ball Work Phone: KT-AMBII-Fufwfq 310 IVF Work Phone: 12-04-2021 09:12-0400 Body mass index (BMI) [Ratio] 40.24 kg/m2 Aquiles E Ball Work Phone: ZR-WFIKC-Xeepnl 310 IVF Work Phone: 12-04-2021 09:12-0400 Body surface area Derived from formula 1.99 m2 Aquiles E Ball Work Phone: NO-LAJNW-Frwibk 310 IVF Work Phone: 12-04-2021 09:12-0400 Body weight 99.79 kg Aquiles E Ball Work Phone: ZY-KVJHA-Oivusz 310 IVF Work Phone: 09-21-2021 11:12-0400 Body height 157.48 cm Aquiles E Ball Work Phone: BY-VJYWF-Jnvixp 320 Work Phone: 09-21-2021 11:12-0400 Body mass index (BMI) [Ratio] 41.88 kg/m2 Aquiles E Ball Work Phone: BI-DRLYH-Jqonux 320 Work Phone: 09-21-2021 11:12-0400 Body surface area Derived from formula 2.02 m2 Aquiles E Ball Work Phone: OE-KFIKK-Violnr 320 Work Phone: 09-21-2021 11:12-0400 Body weight 103.87 kg Aquiles E Ball Work Phone: FU-JRQQL-Uikztn 320 Work Phone: 09-21-2021 11:12-0400 Diastolic blood pressure 84 mm[Hg] Aquiles E Ball Work Phone: UB-IZYVF-Bmfpgd 320 Work Phone: 09-21-2021 11:12-0400 Heart rate 76 /min Aquiles E Ball Work Phone: MF-VPMTI-Ilsmrs 320 Work Phone: 09-21-2021 11:12-0400 Systolic blood pressure 131 mm[Hg] Aquiles E Ball Work Phone: YJ-ZSQQV-Iuwjqg 320 Work Phone: 09-21-2021 11:12-0400 0 1 Aquiles Chapa Ball Work Phone: LE-LMPXP-Pljhsf 320 Work Phone: Comment on above: PainScale 09-21-2021 11:12-0400 4 1 Aquiles Chapa Ball Work Phone: TB-EKNIR-Fughpp 320 Work Phone: Comment on above: GRAV 09-21-2021 11:12-0400 1 1 Aquiles Chapa Ball Work Phone: JX-IGGIR-Ktmikg 320 Work Phone: Comment on above: PARA 06-15-2021 13:09-0400 Body height 157.48 cm Aquiles Chapa Ball Work Phone: EZ-UYZGG-MFA 7th [place] Work Phone: 06-15-2021 13:09-0400 Body mass index (BMI) [Ratio] 39.51 kg/m2 Aquiles Chapa Ball Work Phone: IF-YFOYP-XVF 7[place] Work Phone: 06-15-2021 13:09-0400 Body surface area Derived from formula 1.98 m2 Aquiles Chapa Ball Work Phone: ZV-RSIVI-DCT 7th [place] Work Phone: 06-15-2021 13:09-0400 Body weight 97.98 kg Aquiles Chapa Ball Work Phone: IE-JHYML-ALO 7th [place] Work Phone: 06-15-2021 13:09-0400 5 1 Aquiles Chapa Ball Work Phone: AZ-REDGK-EOV [place] Work Phone: Comment on above: GRAV 06-15-2021 13:09-0400 1 1 Aquiles Chapa Ball Work Phone: RV-VVKTL-JXU 7[place] Work Phone: Comment on above: PARA 06-15-2021 13:09-0400 0 1 Aquiles E Ball Work Phone: SO-VTKIO-FVQ 7[place] Work Phone: Comment on above: PainScale 04-24-2021 15:29-0500 Body mass index (BMI) [Ratio] 39.51 kg/m2 Aquiles E Ball Work Phone: TF-Ukoyoxorja-Arurmw ke 2100 DO Work Phone: 04-24-2021 15:29-0500 Body surface area Derived from formula 1.98 m2 Aquiles E Ball Work Phone: AS-Cfpktextfs-Bozfdq ke 2100 DO Work Phone: 04-24-2021 15:29-0500 Body weight 97.98 kg Aquiles E Ball Work Phone: KA-Yjfctzgdjs-Xhklgd ke 2100 DO Work Phone: 04-24-2021 15:29-0500 Diastolic blood pressure 88 mm[Hg] Aquiles E Ball Work Phone: MJ-Wchrzhbmrj-Taugif ke 2100 DO Work Phone: 04-24-2021 15:29-0500 Heart rate 76 /min Aquiles E Ball Work Phone: WT-Ixpdukuapd-Qubarn ke 2100 DO Work Phone: 04-24-2021 15:29-0500 SaO2% (BldA) [Mass fraction] 98 % Aquiles E Ball Work Phone: ZU-Rttkfwkdci-Hsyzwl ke 2100 DO Work Phone: 04-24-2021 15:29-0500 Systolic blood pressure 130 mm[Hg] Aquiles E Ball Work Phone: AX-Jongdmtycr-Zmewsl ke 2100 DO Work Phone: 01-31-2021 10:14-0400 Body height 157.48 cm Aquiles E Ball Work Phone: JA-Mrqycgkpbivfie-Id effield Work Phone: 01-31-2021 10:14-0400 Body mass index (BMI) [Ratio] 38.41 kg/m2 Aquiles Escobedo Work Phone: AM-Plbdnlykmjzyqn-Kn effield Work Phone: 01-31-2021 10:14-0400 Body surface area Derived from formula 1.95 m2 Aquiles Escobedo Work Phone: JQ-Iiehrciaidfyoc-Es effield Work Phone: 01-31-2021 10:14-0400 Body weight 95.26 kg Aquiles Escobedo Work Phone: AP-Jppdjmpoyhzjtv-Kg effield Work Phone: 05-04-2020 12:56-0500 BMI (Body Mass Index) 49.04 kg/m2 Luana Godinez MD-HZIA-YNJF Mary [address] M Work Phone: 05-04-2020 12:56-0500 Body Temperature 97.4 [degF] Luana Godinez NM-MFOK-UWYG Mary 887[address] M Work Phone: 05-04-2020 12:56-0500 Body weight 121.62 kg Luana Godinez KB-XPQD-KJPY Mary 35[address] M Work Phone: 05-04-2020 12:56-0500 BP Diastolic 86 mm[Hg] Luana Godinez MS-SVHL-ASKC Mary 628[address] M Work Phone: 05-04-2020 12:56-0500 BP Systolic 124 mm[Hg] Luana Godinez MD-MZSD-XEBT Reva 17408 M Work Phone: 05-04-2020 12:56-0500 BSA (Body Surface Area) 2.17 m2 Luana Godinez IH-YLOE-NXXQ [place] 49736 M Work Phone: 05-04-2020 12:56-0500 Height 157.48 cm Luana Godinez FQ-SLZN-OIWF Rev[place] [address] M Work Phone: 05-04-2020 12:56-0500 5 1 Luana Godinez MP-WSPC-WSWH Mary 87[address] M Work Phone: Comment on above: 05-04-2020 12:56-0500 0 1 Luana Godinez LO-IAEX-PXVI Mary 73356 M Work Phone: Comment on above: Para 05-02-2020 16:16-0500 BMI (Body Mass Index) 48.9 kg/m2 Luana Godinez KS-ECFV-EXIR [place] 439[address] M Work Phone: 05-02-2020 16:16-0500 Body Temperature 97 [degF] Luana Godinez MP-WSPC-WSWH Mary 34744 M Work Phone: 05-02-2020 16:16-0500 Body weight 121.28 kg Luana Godinez FT-EFGS-MMFA Mary 10013 M Work Phone: 05-02-2020 16:16-0500 BSA (Body Surface Area) 2.16 m2 Luana Godinez MP-WSPC-WSWH Mary 74526 M Work Phone: 05-02-2020 16:16-0500 Height 157.48 cm Luana Godinez MP-WSPC-WSWH Mary 13651 M Work Phone: 05-02-2020 16:16-0500 0 1 Luana Godinez MP-WSPC-WSWH [place] 60836 M Work Phone: Comment on above: Pain Scale Para 05-02-2020 16:16-0500 5 1 Luana Godinez MP-WSPC-WSWH [place] 505[address] M Work Phone: Comment on above: 04-28-2020 15:57-0500 BMI (Body Mass Index) 48.52 kg/m2 Luana Godinez IH-BADA-CWJD Mary 97144 M Work Phone: 04-28-2020 15:57-0500 Body Temperature 97.2 [degF] Luana Godinez LD-AJXM-GNGJ [place] 57884 M Work Phone: 04-28-2020 15:57-0500 Body weight 120.32 kg Luana Godinez JA-NBNP-XOYL Mary 02712 M Work Phone: 04-28-2020 15:57-0500 BP Diastolic 94 mm[Hg] Luana Godinez RU-WPFK-OHHY [place] 98112 M Work Phone: 04-28-2020 15:57-0500 BP Systolic 138 mm[Hg] Luana Godinez MP-WSPC-WSWH Mary 69135 M Work Phone: 04-28-2020 15:57-0500 BSA (Body Surface Area) 2.16 m2 Luana Godinez BS-HHJB-BZVI [place] 75958 M Work Phone: 04-28-2020 15:57-0500 Height 157.48 cm Luana Godinez MG-IGHO-SFAY Mary 64217 M Work Phone: 04-28-2020 15:57-0500 0 1 Luana Godinez MP-WSPC-WSWH Mary 87050 M Work Phone: Comment on above: Para Pain Scale 04-28-2020 15:57-0500 5 1 Luana Godinez FB-PVLW-OJKU Mary 69467 M Work Phone: Comment on above: 04-26-2020 17:45-0500 BMI (Body Mass Index) 48.49 kg/m2 Luana Godinez MP-WSPC-WSWH Mary 19569 M Work Phone: 04-26-2020 17:45-0500 Body Temperature 97.4 [degF] Luana Godinez MP-WSPC-WSWH Mary 67568 M Work Phone: 04-26-2020 17:45-0500 Body weight 120.26 kg Luana Godinez MP-WSPC-WSWH [place] 54501 M Work Phone: 04-26-2020 17:45-0500 BP Diastolic 88 mm[Hg] Luana Godinez MP-WSPC-WSWH [place] 28380 M Work Phone: 04-26-2020 17:45-0500 BP Systolic 150 mm[Hg] Luana Godinez MP-WSPC-WSWH [place] 99166 M Work Phone: 04-26-2020 17:45-0500 BSA (Body Surface Area) 2.15 m2 Luana Godinez MP-WSPC-WSWH [place] 65648 M Work Phone: 04-26-2020 17:45-0500 Height 157.48 cm Luana Godinez MP-WSPC-WSWH Mary 25263 M Work Phone: 04-26-2020 17:45-0500 0 1 Luana Godinez MP-WSPC-WSWH [place] 95597 M Work Phone: Comment on above: Pain Scale Para 04-26-2020 17:45-0500 5 1 Luana Godinez MP-WSPC-WSWH [place] 12403 M Work Phone: Comment on above: 04-19-2020 17:14-0500 BMI (Body Mass Index) 46.53 kg/m2 Luana Godinez MP-WSPC-WSWH [place] 39674 M Work Phone: 04-19-2020 17:14-0500 Body Temperature 97.3 [degF] Luana Godinez MP-WSPC-WSWH [place] 20044 M Work Phone: 04-19-2020 17:14-0500 Body weight 115.38 kg Luana Godinez MP-WSPC-WSWH [place] 25886 M Work Phone: 04-19-2020 17:14-0500 BP Diastolic 86 mm[Hg] Luana Godinez MP-WSPC-WSWH Mary 47662 M Work Phone: 04-19-2020 17:14-0500 BP Systolic 124 mm[Hg] Luana Godinez MP-WSPC-WSWH Mary 63210 M Work Phone: 04-19-2020 17:14-0500 BSA (Body Surface Area) 2.12 m2 Luana Godinez MP-WSPC-WSWH Mary 26884 M Work Phone: 04-19-2020 17:14-0500 Height 157.48 cm Luana Godinez MP-WSPC-WSWH [place] 98372 M Work Phone: 04-19-2020 17:14-0500 5 1 Luana Godinez MP-WSPC-WSWH [place] 48652 M Work Phone: Comment on above: 04-19-2020 17:14-0500 0 1 Luana Godinez MP-WSPC-WSWH [place] 83135 M Work Phone: Comment on above: Para Pain Scale 04-11-2020 17:39-0500 BMI (Body Mass Index) 46.71 kg/m2 Luana Godinez MP-WSPC-WSWH Mary 97283 M Work Phone: 04-11-2020 17:39-0500 Body Temperature 97 [degF] Luana Godinez MP-WSPC-WSWH [place] 14281 M Work Phone: 04-11-2020 17:39-0500 Body weight 115.84 kg Luana Godinez MP-WSPC-WSWH Mary 05064 M Work Phone: 04-11-2020 17:39-0500 BP Diastolic 88 mm[Hg] Luana Godinez MP-WSPC-WSWH [place] 38198 M Work Phone: 04-11-2020 17:39-0500 BP Systolic 136 mm[Hg] Luana Godinez MP-WSPC-WSWH Mary 96069 M Work Phone: 04-11-2020 17:39-0500 BSA (Body Surface Area) 2.12 m2 Luana Godinez MP-WSPC-WSWH Mary 04654 M Work Phone: 04-11-2020 17:39-0500 Height 157.48 cm Luana Godinez MP-WSPC-WSWH Mary 66762 M Work Phone: 04-11-2020 17:39-0500 5 1 Luana Godinez MP-WSPC-WSWH [place] 76628 M Work Phone: Comment on above: 04-11-2020 17:39-0500 0 1 Luana Godinez MP-WSPC-WSWH Mary 71958 M Work Phone: Comment on above: Para Pain Scale 04-04-2020 18:06-0500 BMI (Body Mass Index) 45.36 kg/m2 Luana Godinez MP-WSPC-WSWH Mary 77541 M Work Phone: 04-04-2020 18:06-0500 Body Temperature 96.3 [degF] Luana Godinez MP-WSPC-WSWH [place] 29253 M Work Phone: 04-04-2020 18:06-0500 Body weight 112.49 kg Luana Godinez MP-WSPC-WSWH Mary 40008 M Work Phone: 04-04-2020 18:06-0500 BP Diastolic 88 mm[Hg] Luana Godinez MP-WSPC-WSWH [place] 39674 M Work Phone: 04-04-2020 18:06-0500 BP Systolic 130 mm[Hg] Luana Godinez MP-WSPC-WSWH Mary 06359 M Work Phone: 04-04-2020 18:06-0500 BSA (Body Surface Area) 2.09 m2 Luana Godinez NY-SPIJ-DIZZ Mary 50618 M Work Phone: 04-04-2020 18:06-0500 Height 157.48 cm Luana Godinez MP-WSPC-WSWH [place] 01541 M Work Phone: 04-04-2020 18:06-0500 5 1 Luana Godinez MP-WSPC-WSWH Mary 82681 M Work Phone: Comment on above: 04-04-2020 18:06-0500 0 1 Luana Godinez MP-WSPC-WSWH [place] 40675 M Work Phone: Comment on above: Para 03-28-2020 16:34-0500 BMI (Body Mass Index) 44.45 kg/m2 Luana Godinez MP-WSPC-WSWH [place] 55624 M Work Phone: 03-28-2020 16:34-0500 Body Temperature 97.6 [degF] Luana Godinez MP-WSPC-WSWH Mary 02020 M Work Phone: Comment on above: Method: Temporal 03-28-2020 16:34-0500 Body weight 110.22 kg Luana Godinez MP-WSPC-WSWH [place] 81263 M Work Phone: 03-28-2020 16:34-0500 BP Diastolic 84 mm[Hg] Luana Godinez MP-WSPC-WSWH [place] 70124 M Work Phone: Comment on above: Location: RUE; Position: Sitting 03-28-2020 16:34-0500 BP Systolic 130 mm[Hg] Luana Godinez MP-WSPC-WSWH Mary 10765 M Work Phone: Comment on above: Location: RUE; Position: Sitting 03-28-2020 16:34-0500 BSA (Body Surface Area) 2.08 m2 Luana Godinez GN-BGAJ-ICCJ Mary 06015 M Work Phone: 03-28-2020 16:34-0500 Height 157.48 cm Luana Godinez TW-UYIO-IOMQ Mary 24757 M Work Phone: 03-28-2020 16:34-0500 5 1 Luana Godinez RS-ONIP-TFID Mary 14067 M Work Phone: Comment on above: 03-28-2020 16:34-0500 0 1 Luana Godinez HR-DSJZ-UAPK [place] 53947 M Work Phone: Comment on above: Pain Scale Para 03-22-2020 15:13-0500 BMI (Body Mass Index) 44.26 kg/m2 Luana Stevensi QT-GLABH-Lcjyaf 310 IVF Work Phone: 03-22-2020 15:13-0500 Body Temperature 97.6 [degF] Luana Stevensi FB-DRNIX-Unhqec 310 IVF Work Phone: 03-22-2020 15:13-0500 Body weight 109.77 kg Luana Stevensi ZR-QLEAL-Zzgzau 310 IVF Work Phone: 03-22-2020 15:13-0500 BP Diastolic 80 mm[Hg] Luana Stevensi YC-ZJJES-Tvbtnd 310 IVF Work Phone: 03-22-2020 15:13-0500 BP Systolic 140 mm[Hg] Luana Stevensi NW-NMXJK-Cqbmph 310 IVF Work Phone: 03-22-2020 15:13-0500 BSA (Body Surface Area) 2.07 m2 Luana Stevensi EL-WAWJA-Hbkcoo 310 IVF Work Phone: 03-22-2020 15:13-0500 Height 157.48 cm Luana Stevensi TL-QJFJW-Agzzce 310 IVF Work Phone: 03-22-2020 15:13-0500 0 1 Luana Godinez OV-DPRJY-Dmsfkd 310 IVF Work Phone: Comment on above: Pain Scale Para 03-22-2020 15:13-0500 5 1 Luana Godinez JZ-RKEOR-Inlwis 310 IVF Work Phone: Comment on above: 03-10-2020 18:36-0500 BMI (Body Mass Index) 43.81 kg/m2 Luana Godinez LB-LPWTA-Wcjdkr 310 IVF Work Phone: 03-10-2020 18:36-0500 Body Temperature 97.3 [degF] Luana Godinez JY-NXOPQ-Prnies 310 IVF Work Phone: 03-10-2020 18:36-0500 Body weight 108.64 kg Luana Godinez IG-YMTVC-Asdudd 310 IVF Work Phone: 03-10-2020 18:36-0500 BP Diastolic 80 mm[Hg] Luana Godinez YD-FSUTW-Cpfthr 310 IVF Work Phone: 03-10-2020 18:36-0500 BP Systolic 118 mm[Hg] Luana Godinez MV-FPQOJ-Wjcjrs 310 IVF Work Phone: 03-10-2020 18:36-0500 BSA (Body Surface Area) 2.06 m2 Luana Godinez AO-CQQYS-Tsdmsl 310 IVF Work Phone: 03-10-2020 18:36-0500 Height 157.48 cm Luana Godinez WN-EAICS-Pxjfwu 310 IVF Work Phone: 03-10-2020 18:36-0500 0 1 Luana Godinez US-HOPCB-Xqdpds 310 IVF Work Phone: Comment on above: Pain Scale Para 03-10-2020 18:36-0500 5 1 Luana Godinez XR-CJKVJ-Rjcopq 310 IVF Work Phone: Comment on above: 05-05-2019 17:22-0500 BMI (Body Mass Index) 39.51 kg/m2 Luana Godinez QC-OATGF-Dgxfkf 310 IVF Work Phone: 05-05-2019 17:22-0500 Body Temperature 97.5 [degF] Luana Godinez XI-BXHQH-Lnddqh 310 IVF Work Phone: 05-05-2019 17:22-0500 Body weight 97.98 kg Luana Godinez LB-CRJSM-Frlwtc 310 IVF Work Phone: 05-05-2019 17:22-0500 BP Diastolic 80 mm[Hg] Luana Godinez TS-DLZHI-Bnvuxc 310 IVF Work Phone: 05-05-2019 17:22-0500 BP Systolic 122 mm[Hg] Luana Stevensi LL-OIURE-Bgzcdc 310 IVF Work Phone: 05-05-2019 17:22-0500 BSA (Body Surface Area) 1.98 m2 Luana Stevensi PW-VXSFX-Xzzkkj 310 IVF Work Phone: 05-05-2019 17:22-0500 Height 157.48 cm Luana Godinez QG-CSIOR-Pzcwnm 310 IVF Work Phone: 05-05-2019 17:22-0500 Pulse (Heart Rate) 85 /min Luana Godinez LK-VMUJC-Jhuv an 310 IVF Work Phone: 05-05-2019 17:22-0500 4 1 Luana Stevensi MZ-ICANZ-Iyxaod 310 IVF Work Phone: Comment on above: 05-05-2019 17:22-0500 0 1 Luana Godinez CI-CWQTU-Lwxgsb 310 IVF Work Phone: Comment on above: Para Pain Scale Encounters Encounter Date Encounter Type Care Provider Facility Start: 08-11-2023 End: 08-11-2023 ambulatory [facility] Start: 08-04-2023 End: 08-05-2023 ambulatory Miladis Rodriguez MD Facility:[facility] Start: 07-14-2023 End: 07-14-2023 ambulatory [facility] Start: 06-23-2023 End: 06-23-2023 ambulatory KELSEY David [facility] Start: 04-28-2023 End: 04-28-2023 ambulatory Aquiles Escobedo Other [employer] Other Start: 04-28-2023 Telephone encounter Aquiles Escobedo [facility] Start: 03-21-2023 End: 03-21-2023 ambulatory KELSEY David [facility] Ambulatory Start: 12-26-[address] Kelsey De Luna lity:[facility] Mary Wagner Start: 11-27-2022 End: 11-27-2022 ambulatory Aquiles Escobedo Other [employer] [facility] [employer] Other Start: 11-27-2022 Encounter for genera l adult medical examination without abnormal findings Aquiles Escobedo [facility] Start: 11-27-2022 Periodic preventive med est patient 40-64yrs Aquiles Escobedo [facility] Start: 11-11-[address] Kelsey De Luna lity:[id number] Start: 09-30-[address] Kelsey De Luna lity:[id number] Start: 09-09-[address] Kelsey De Luna lity:[id number] Start: 08-23-2022 End: 08-23-2022 ambulatory Aquiles Escobedo Facility:[facility] Start: 08-19-2022 End: 08-20-2022 Evaluation and management of inpatient Aquiles Escobedo Facility:[facility] Start: 08-13-[address] Kelsey De Lnua lity:[facility] Mary Wagner Start: 07-26-2022 End: 07-26-2022 ambulatory PHYSICIAN NO FAMILY Facility:[facility] Start: 07-26-2022 End: 07-26-2022 ambulatory DO Tess Saxena Work Phone: [facility] Work Phone: Start: 07-26-2022 End: 07-26-2022 Departed Referred DO Tess Saxena Work Phone: [facility] [place] Work Phone: Start: 07-03-2022 End: 07-04-2022 ambulatory TESS SAXENA Facility:[facility] Start: 06-17-[address] Kelsey De Luna lity:[id number] Start: 06-05-2022 End: 06-06-[address] AQUILES ESCOBEDO Facility:[facility] Start: 05-21-[address] Kelsey De Luna lity:[facility] Mary Bernard Start: 04-22-[address] Kelsey De Luna lity:[id number] Start: 04-10-2022 End: 04-11-[address] AQUILES ESCOBEDO Facility:[facility] Start: 02-18-[address] Kelsey De Luna lity:[id number] Start: 02-04-2022 End: 02-05-2022 ambulatory TESS SAXENA Facility:[facility] Start: 02-04-2022 Rx Renewal Aquiles mesa Work Phone: WY-YXUZI-Vpbegxu 206A IVF Work Phone: Start: 01-28-[address] Kelsey De Luna lity:[id number] Start: 01-10-2022 Rx Renewal Aquiles mesa Work Phone: KQ-ZSSFK-Mfecku 310 IVF Work Phone: Start: 01-10-2022 Patient encounter procedure Aquiles Escobedo Work Phone: XB-RHLVE-Huqvpc 310 IVF Work Phone: Start: 01-10-2022 ULTRASOUND, Provider : OBGYN IVF RDMS [id number] 1,MG OBGYN, Status: Pen, Time: 3:00 PM Aquiles Escobedo Work Phone: JO-YRKKN-Hvpwat 310 IVF Work Phone: Start: 01-08-2022 AUDIT Aquiles mesa Work Phone: VN-FDRFF-Iyprsn 310 IVF Work Phone: Start: 12-28-2021 AUDIT Aquiles mesa Work Phone: CI-PLXGA-Nzzesc 310 IVF Work Phone: Start: 12-28-2021 Office outpatient vi sit 25 minutes Aquiles Escobedo Work Phone: EI-Phjfinpfll-Lahmdpor 2100 DO Work Phone: Start: 12-21-2021 Chart Update Aquiles mesa Work Phone: OM-KTHLP-Zjbnve 310 IVF Work Phone: Start: 12-21-2021 Patient encounter procedure Aquiles Escoebdo Work Phone: GY-LNTXX-Izcueyx 206A IVF Work Phone: Start: 12-11-2021 Patient encounter procedure Aquiles Escobedo Work Phone: QD-FUQPV-Ajxxnh 310 IVF Work Phone: Start: 12-04-2021 Patient encounter procedure Aquiles Escobedo Work Phone: II-ZZTML-Apxpko 310 IVF Work Phone: Start: 11-16-2021 AUDIT Aquiles mesa Work Phone: IW-MUCSA-Ovlvpe 310 IVF Work Phone: Start: 11-16-2021 Encounter for genera l adult medical examination without abnormal findings DR AQUILES ESCOBEDO [facility] Start: 11-15-2021 End: 11-16-[address] AQUILES ESCOBEDO Facility:[facility]1 Start: 11-15-2021 End: 11-16-2021 Encounter for general adult medical examination without abnormal findings DR AQUILES ESCOBEDO Facility:[facility] Start: 11-02-2021 Rx Renewal Aquiles mesa Work Phone: RR-PAPSN-Sifpgz 310 IVF Work Phone: Start: 10-19-2021 Chart Update Aquiles mesa Work Phone: QN-PSOYW-Iqmqjt 310 IVF Work Phone: Start: 10-04-2021 Patient encounter procedure Aquiles Escobedo Work Phone: HC-KIYAA-Ogstvl 310 IVF Work Phone: Start: 09-21-2021 Patient encounter procedure Aquiles Escobedo Work Phone: YE-BWWCM-Ebpfmf 320 Work Phone: Start: 09-12-2021 Chart Update Aquiles mesa Work Phone: GF-GWCDS-Cybbme 310 IVF Work Phone: Start: 09-10-2021 Chart Update Aquiles Coburn l Work Phone: NM-NNEHX-Xbwqsle 206A IVF Work Phone: Start: 09-10-2021 Patient encounter procedure Aquiles Escobedo Work Phone: BR-KXGOB-Lsmxlb 310 IVF Work Phone: Start: 09-01-2021 AUDIT Aquiles mesa Work Phone: MP-Reproductive Endocrinology-Reva 206 Work Phone: Start: 08-31-2021 Patient encounter procedure Aquiles Escobedo Work Phone: KJ-HBMIM-Riagzcs 206A IVF Work Phone: Start: 07-27-2021 Chart Update Aquiles mesa Work Phone: TV-OLILH-Rtkzma 310 IVF Work Phone: Start: 07-26-2021 AUDIT Aquiles Coburn l Work Phone: TW-AOVYI-Jdvguaz 206A IVF Work Phone: Start: 06-26-2021 Image Encounter Aquiles Eduard Coburn l Work Phone: zz DO NOT USE - [employer] Only Start: 06-18-2021 AUDIT Aquiles Chapa Bal l Work Phone: ZX-Dwzbblprjk-Umkygh Work Phone: Start: 06-15-2021 Office outpatient vi sit 25 minutes Aquiles Chapa Ball Work Phone: RA-FFCCV-Gzrnltq 206A IVF Work Phone: Start: 06-15-2021 DEANEduard, Provider : Zari Oviedo, Status: Pen, Time: 1:30 PM Aquiles Chapa Ball Work Phone: MF-Rsccgqiooi-Goauha Work Phone: Start: 06-14-2021 Chart Update Aquiles Eduard Bal l Work Phone: KU-Xjysotneon-Nhmuqi Work Phone: Start: 06-12-2021 Chart Update Aquiles E Bal l Work Phone: BV-Lebymqzjei-Wefccxcn 2100 DO Work Phone: Start: 06-11-2021 Chart Update Aquiles Eduard Bal l Work Phone: RX-Frcpqtfqtk-Fbjczexu 2100 DO Work Phone: Start: 05-22-2021 Chart Update Aquiles Eduard Bal l Work Phone: GM-Mzilexdrlb-Whkyfyui 2100 DO Work Phone: Start: 04-24-2021 Office consultation new/estab patient 60 min Aquiles Escobedo Work Phone: NK-Qfdnpmyhzj-Vjxxzmrz 2100 DO Work Phone: Start: 04-24-2021 Patient encounter procedure Aquiles Chapa Ball Work Phone: UX-Uepmqccncw-Btvrcmzp 2100 DO Work Phone: Start: 02-20-2021 AUDIT Aquiles Eduard Bal l Work Phone: YU-Fznbaabsbiufsi-Zpik field Work Phone: Start: 02-15-2021 Chart Update Aquiles Eduard Bal l Work Phone: MQ-Xbhhysojsgllvv-Rrqs field Work Phone: Start: 01-31-2021 Patient encounter procedure Aquiles Eduard Ball Work Phone: VE-Xbsttgujsllkyb-Bvfa field Work Phone: Start: 05-04-2020 Patient encounter procedure Luana Godinez DM-WNAY-WLVX Mayr 849[address] M Work Phone: Start: 05-02-2020 Patient encounter procedure Luana Godinez KE-OOKF-BYVP Rev[place] 15575 M Work Phone: Start: 04-28-2020 Patient encounter procedure Luana Godinez WL-TECW-ZZLG Mary 92970 M Work Phone: Start: 04-26-2020 Patient encounter procedure Luana Godinez QT-FDJI-JJCL [place] 50293 M Work Phone: Start: 04-19-2020 Patient encounter procedure Luana Godinez CH-MYGC-RZSX Mary 18549 M Work Phone: Start: 04-11-2020 Patient encounter procedure Luana Godinez UI-CTDY-QBBD Mary 38408 M Work Phone: Start: 04-04-2020 Patient encounter procedure Luana Godinez WD-MZLS-JBXA Rev[place] 33089 M Work Phone: Start: 03-28-2020 Patient encounter procedure Luana Godinez HG-NOMV-XJRG [place] 393[address] M Work Phone: Start: 03-22-2020 Patient encounter procedure Luana Godinez VC-ZMGTL-Ugogpb 310 IVF Work Phone: Start: 03-10-2020 Patient encounter procedure Luana Godinez WL-IRLAA-Taiopn 310 IVF Work Phone: Start: 02-08-2020 Patient encounter procedure Luana Godinez LZ-GTEDH-Yxmzxj 310 IVF Work Phone: Start: 01-11-2020 Patient encounter procedure Luana Godinez RI-XCGQT-Ygnvbt 310 IVF Work Phone: Start: 01-07-2020 Patient encounter procedure Luana Godinez IY-YLGMK-Nzugqm 310 IVF Work Phone: Start: 12-17-2019 Patient encounter procedure Luana Godinez IB-EJFYD-Iwmozp 310 IVF Work Phone: Start: 12-01-2019 Patient encounter procedure Luana Godinez ZG-ZJWSM-Bfxxnm 310 IVF Work Phone: Start: 11-23-2019 Patient encounter procedure Luana Godinez JZ-SDFHD-Bqibly 310 IVF Work Phone: Start: 11-17-2019 Patient encounter procedure Luana Godinez JC-GHCOM-Gduwqx 310 IVF Work Phone: Start: 11-16-2019 Patient encounter procedure Luana Godinez UU-CXGGO-Mcrjue 310 IVF Work Phone: Start: 11-09-2019 Patient encounter procedure Luana Godinez HH-ZCWKM-Skavyo 310 IVF Work Phone: Start: 11-03-2019 Patient encounter procedure Luana Godinez BS-LATBG-Tomzzd 310 IVF Work Phone: Start: 11-01-2019 Patient encounter procedure Luana Godinez NA-HEFBS-Jjwfnw 310 IVF Work Phone: Start: 10-21-2019 Patient encounter procedure Luana Godinez WC-GZJNJ-Nmwdht 310 IVF Work Phone: Start: 10-13-2019 Patient encounter procedure Luana Godinez QG-QMFXT-Ytknxj 310 IVF Work Phone: Start: 10-04-2019 Patient encounter procedure Luana Godinez HU-GRRYF-Sjiqbr 310 IVF Work Phone: Start: 10-01-2019 Patient encounter procedure Luana Godinez QL-OBQLV-Sgrixi 310 IVF Work Phone: Start: 09-30-2019 Patient encounter procedure Luana Godinez AM-VEKSY-Hfvqmv 310 IVF Work Phone: Start: 09-20-2019 Patient encounter procedure Luana Godinez GV-JXRAM-Xzxksk 310 IVF Work Phone: Start: 09-08-2019 Patient encounter procedure Luana Godinez JP-YCDMS-Iuxmgx 310 IVF Work Phone: Start: 09-02-2019 Patient encounter procedure Luana Godinez MM-CNVZH-Icyuxu 310 IVF Work Phone: Start: 06-22-2019 Patient encounter procedure Luana Godinez AN-LLQQZ-Wqgthm 310 IVF Work Phone: Start: 05-25-2019 Patient encounter procedure Luana Godinez MP-Reproductive Endocrinology-[place] Work Phone: Start: 05-05-2019 Patient encounter procedure Luana Godinez SR-FKLLV-Erwpag 310 IVF Work Phone: Start: 04-09-2019 Patient encounter procedure Luana Godinez UX-CVERV-Ltuzlk 310 IVF Work Phone: Start: 03-25-2019 Patient encounter procedure Luana Godinez GF-RMCXN-Egvzpt 310 IVF Work Phone: Start: 03-15-2019 Patient encounter procedure Luana Godinez DD-MNTER-Mwkzhg 310 IVF Work Phone: Start: 03-02-2019 Patient encounter procedure Luana Godinez QP-SDPCO-Oplrnk 310 IVF Work Phone: Start: 02-05-2019 Patient encounter procedure Luana Godinez EN-QOYNE-Ordujs 310 IVF Work Phone: Start: 02-02-2019 Patient encounter procedure Luana Godinez UF-XOCPE-Ybswwh 310 IVF Work Phone: Start: 01-21-2019 Patient encounter procedure Luana Godinez GS-SETBB-Hlsipn 310 IVF Work Phone: Start: 12-08-2018 Patient encounter procedure Luana Godinez YA-KJKIR-Lwhnyv 310 IVF Work Phone: Start: 11-02-2018 Patient encounter procedure Luana Godinez SC-JQBDN-Szqals 310 IVF Work Phone: Start: 10-30-2018 Patient encounter procedure Luana Godinez LR-EHOVD-Ojsgen 310 IVF Work Phone: Start: 10-26-2018 Patient encounter procedure Luana Godinez QH-EXTYS-Icocje 310 IVF Work Phone: Start: 10-15-2018 Patient encounter procedure Luana Godinez HL-UEGZF-Ckhhfj 310 IVF Work Phone: Start: 09-28-2018 Patient encounter procedure Luana Godinez TS-JTEXO-Mzjxtm 310 IVF Work Phone: Start: 09-16-2018 Patient encounter procedure Luana Godinez KZ-SZIEV-Ohfexo 310 IVF Work Phone: Start: 09-08-2018 Patient encounter procedure Luana Godinez XD-SZOPO-Volvtg 310 IVF Work Phone: Start: 08-17-2018 Patient encounter procedure Luana Godinez DS-IFJIQ-Jtgjej 310 IVF Work Phone: Start: 07-14-2018 Patient encounter procedure Luana Morin MP-Reproductive Endocrinology-Mary 206 Work Phone: Start: 07-03-2018 Patient encounter procedure Luana Morin MP-Reproductive Endocrinology-Reva 206 Work Phone: Start: 06-11-2018 Patient encounter procedure Luana Morin MP-Reproductive Endocrinology-Mary 206 Work Phone: Start: 03-09-2018 Patient encounter procedure Luana Morin MP-Reproductive Endocrinology-Reva 206 Work Phone: Start: 02-27-2018 Patient encounter procedure Og [place] [place]: 02-21-2018 Patient encounter procedure Luana Morin MP-Reproductive Endocrinology-Reva 206 Work Phone: Start: 02-11-2018 Patient encounter procedure Luana Morin MP-Reproductive Endocrinology-Reva 206 Work Phone: Start: 02-09-2018 Patient encounter procedure Luana Morin MP-Reproductive Endocrinology-Mary 206 Work Phone: Start: 02-07-2018 Patient encounter procedure Luana Morin MP-Reproductive Endocrinology-Reva 206 Work Phone: Start: 02-05-2018 Patient encounter procedure Luana Morin MP-Reproductive Endocrinology-Reva 206 Work Phone: Start: 12-26-2017 Patient encounter procedure Luana Morin MP-Reproductive Endocrinology-Reva 206 Work Phone: Start: 07-31-2017 Patient encounter procedure Og House Subhash [place] [place]: 07-30-2017 Patient encounter procedure Christkarener S Subhash [place] [place] Start: 07-28-2017 Patient encounter procedure Christkarener S Subhash [place] [place] Start: 06-11-2017 Patient encounter procedure Luana Morin MP-Reproductive Endocrinology-Mary 206 Work Phone: Start: 06-10-2017 Patient encounter procedure Luana Morin MP-Reproductive Endocrinology-Reva 206 Work Phone: Start: 06-04-2017 Patient encounter procedure Luana Morin MP-Reproductive Endocrinology-Mary 206 Work Phone: Start: 06-02-2017 Patient encounter procedure Luana Morin MP-Reproductive Endocrinology-Reva 206 Work Phone: Start: 05-27-2017 Patient encounter procedure Luana Morin MP-Reproductive Endocrinology-Reva 206 Work Phone: Start: 05-06-2017 Patient encounter procedure Luana Morin MP-Reproductive Endocrinology-Reva 206 Work Phone: Start: 04-22-2017 Patient encounter procedure Luana Morin MP-Reproductive Endocrinology-Mary 206 Work Phone: Start: 04-01-2017 Patient encounter procedure Luana Morin MP-Reproductive Endocrinology-Reva 206 Work Phone: Start: 03-21-2017 Patient encounter procedure Luana Morin MP-Reproductive Endocrinology-Reva 206 Work Phone: Start: 03-19-2017 Patient encounter procedure Luana Morin MP-Reproductive Endocrinology-Reva 206 Work Phone: Start: 03-13-2017 Patient encounter procedure Luana Morin MP-Reproductive Endocrinology-Reva 206 Work Phone: Start: 01-30-2017 Patient encounter procedure Luana Morin MP-Reproductive Endocrinology-Mary 206 Work Phone: Start: 01-16-2017 Patient encounter procedure Luana Morin MP-Reproductive Endocrinology-Reva 206 Work Phone: Start: 01-02-2017 Patient encounter procedure Luana Morin MP-Reproductive Endocrinology-Mary 206 Work Phone: Start: 12-27-2016 Patient encounter procedure Luana Morin MP-Reproductive Endocrinology-Reva 206 Work Phone: Start: 12-19-2016 Patient encounter procedure Luana Morin MP-Reproductive Endocrinology-Reva 206 Work Phone: Start: 12-16-2016 Patient encounter procedure Luana Morin MP-Reproductive Endocrinology-Mary 206 Work Phone: Start: 12-14-2016 Patient encounter procedure Luana Morin MP-Reproductive Endocrinology-Mary 206 Work Phone: Start: 12-12-2016 Patient encounter procedure Luana Morin MP-Reproductive Endocrinology-Reva 206 Work Phone: Start: 12-10-2016 Patient encounter procedure Luana Morin MP-Reproductive Endocrinology-Reva 206 Work Phone: Start: 12-03-2016 Patient encounter procedure Luana Morin MP-Reproductive Endocrinology-Mary 206 Work Phone: Procedures Date Procedure Procedure Detail Performing Clinician Start: 08-11-2023 End: 08-11-2023 Psychotherapy w/patient 60 minutes Recurrent major depressive disorder, in partial remission (CMS-HCC) Kelsey Gray PhD Work Phone: Comment on above: Recurrent major depr essive disorder, in partial remission ([facility]-HCC) (Primary Dx) Start: 12-26-2022 Psychotherapy w/aylin ent 60 minutes Aquiles E Ball Work Phone: Start: 11-11-2022 Psychotherapy w/aylin ent 60 minutes Aquiles E Ball Work Phone: Start: 09-30-2022 Psychotherapy w/aylin ent 60 minutes Aquiles E Ball Work Phone: Start: 08-19-2022 Antibody screen PHYSICI AN NO FAMILY Comment on above: Result Comment: PERF ORMED BY: [facility] [address] [place] [address] PATHOLOGIST JACQUARD LOOM CARPET WEAVER RENETTA CASE M.D. Start: 06-17-2022 Psychotherapy w/aylin ent 60 minutes Aquiles E Ball Work Phone: Start: 05-21-2022 Psychotherapy w/aylin ent 60 minutes Aquiles E Ball Work Phone: Start: 04-22-2022 Psychotherapy w/aylin ent 60 minutes Aquilse E Ball Work Phone: Start: 02-18-2022 Psychotherapy w/aylin ent 60 minutes Aquiles E Ball Work Phone: Start: 01-28-2022 Psychotherapy w/aylin ent 60 minutes Aquiles E Ball Work Phone: Start: 11-19-2021 Psychotherapy w/aylin ent 60 minutes Aquiles E Ball Work Phone: Start: 10-15-2021 Psychotherapy w/aylin ent 60 minutes Aquiles E Ball Work Phone: Start: 10-04-2021 Microscopic observat ion [Identifier] in Cervix by Cyto stain Kelsey Gray PhD Work Phone: Start: 07-30-2021 Psychotherapy w/aylin ent 60 minutes Aquiles E Ball Work Phone: Start: 06-15-2021 Psychotherapy w/aylin ent 60 minutes Aquiles E Ball Work Phone: Start: 05-18-2021 Psychotherapy w/aylin ent 60 minutes Aquiles E Ball Work Phone: Start: 04-09-2021 Psychotherapy w/aylin ent 60 minutes Aquiles E Ball Work Phone: Start: 03-09-2021 Psychotherapy w/aylin ent 60 minutes Aquiles E Ball Work Phone: Start: 12-07-2020 Psychotherapy w/aylin ent 60 minutes Aquiles E Ball Work Phone: Start: 11-09-2020 Psychotherapy w/aylin ent 60 minutes Aquiles E Ball Work Phone: Start: 10-11-2020 Psychotherapy w/aylin ent 60 minutes Aquiles E Ball Work Phone: Start: 09-27-2020 Psychotherapy w/aylin ent 60 minutes Aquiles E Ball Work Phone: Start: 04-27-2020 Colonoscopy Luana Ayon si Start: 03-28-2020 Protein total xcpt refractometry urine Luana Godinez Start: 03-22-2020 Assay of blood/uric acid Luana Godinez Start: 03-22-2020 Basic metabolic 1998 panel - Serum or Plasma Luana Godinez Start: 03-22-2020 Blood count complete auto&auto difrntl wbc Luana Godinez Start: 03-22-2020 Hepatic function panel Luana Godinez Start: 03-22-2020 Protein total xcpt refractometry urine Luana Godinez Start: 08-19-2019 Assay of estradiol Andres Godinez Start: 08-19-2019 Assay of progesterone B ji Godinez Start: 08-19-2019 IO Ultrasound, limit ed pelvic, follicle monitoring Luana Godinez Start: 07-28-2018 Mammography Kelsey tavera PhD Work Phone: Dilation and curettage Shanita Morin History of Cholecyst ectomy Laparoscopic Luana Morin History of Explorato ry Laparoscopy Luana Morin Comment on above: For pelvic pain--> n o evidence of endometriosis. Was then diagnosed with Crohn's disease.; History of Foot Surgery Shono carlyle Morin Operation on gallbladder Bro eitan Morin Plan of Treatment Date Care Activity Detail Author Start: 04-27-2030 Screening for malign ant neoplasm of colon [facility] Start: 03-10-2030 DTaP/Tdap/Td Vaccine s (2 - Td or Tdap) DTaP/Tdap/Td Vaccines (2 - Td or Tdap) [facility] Start: 10-04-2024 Screening for malign ant neoplasm of cervix [facility] Start: 08-30-2024 Diabetes mellitus screening Diabetes Screening [facility] Start: 03-05-2024 End: 03-05-2024 Telemedicine consultation with patient 03/05/2024 1:00 PM EST Telemedicine [facility] [place]rera [address] Margot Muñoz [address] [address] [place] [address] Margot Muñoz Department of COATING MACHINE FEEDER-Behavioral Medicine [place] [phone] [facility] Start: 01-30-2024 End: 01-30-2024 Telemedicine consultation with patient 01/30/2024 1:00 PM EDT [facility] [address] Margot Muñoz [address] [address] [place] [address] Margot Muñoz Department of COATING MACHINE FEEDER-Behavioral Medicine [place] [phone] [facility] Start: 01-02-2024 End: 01-02-2024 Telemedicine consultation with patient 01/02/2024 1:00 PM EDT [facility] [address] Margot Muñoz [address] [address] [place] [address] Margot Muñoz Department of COATING MACHINE FEED[place] [address] [facility] Start: 12-08-2023 End: 12-08-2023 Telemedicine consultation with patient 12/08/2023 1:00 PM EDT Telemedicine Holly Dorsey Maria Teresa [address] [place] [address] [place] [address] Margot Muñoz Department of COATING MACHINE [place]ED[place] [address] Holly Haleysonysamara Start: 11-07-2023 End: 11-07-2023 Telemedicine consultation with patient 11/07/2023 1:00 PM EDT Telemedicine [facility] [place] [address] Margot Muñoz [address] [address] [place] [address] Margot Muñoz Department of COATING MACHINE [place] [address] [facility] Start: 10-06-2023 End: 10-06-2023 Telemedicine consultation with patient 10/06/2023 8:00 AM EDT Telemedicine Barre[facility]umiko Haleyjonh [address] [place] [phone] [place] [address] Margot Muñoz Department of COATING MACHINE [place] [address] Holly Haleysonysamara Start: 09-08-2023 End: 09-08-2023 Telemedicine consultation with patient 09/08/2023 1:00 PM EDT Telemedicine Barrerayumiko Haleyjonh [address] [place] [phone] [place] [address] Margot Muñoz Department of COATING MACHINE [place] [address] Barre[facility]umiko Dorsey Maria Teresa Start: 11-29-2022 COVID-19 Vaccine ( season) COVID-19 Vaccine ( season) [facility] Start: 07-26-2022 Group B Streptococcu s Culture Group B Streptococcus Culture [facility] Start: 06-07-2022 FUV, Provider: Flakita Antonio, Status: Pen, Time: 8:45 AM FUV, Provider: Flakita Antonio, Status: Pen, Time: 8:45 AM DX-Qutwwtlyhl-Adapl tim 2100 DO Work Phone: Start: 04-26-2022 Pneumococcal Vaccine : Pediatrics (0 to 5 Years) and At-Risk Patients (6 to 64 Years) (2 of 2 - PCV) Pneumococcal Vaccine: Pediatrics (0 to 5 Years) and At-Risk Patients (6 to 64 Years) (2 of 2 - PCV) [facility] Start: 01-10-2022 ULTRASOUND, Provider : OBGYN IVF RDMS [id number] 1,[facility] OBG[facility], Status: Pen, Time: 1:30 PM ULTRASOUND, Provider: OBGYN IVF RDMS [id number] 1,[facility] OBGYN, Status: Pen, Time: 1:30 PM JX-Glqdtyewru-Ruhsc tim 2100 DO Work Phone: Start: 12-28-2021 RNVISIT, Provider: I VF NURSE BERNARD,IFOB, Status: Pen, Time: 8:00 AM RNVISIT, Provider: IVF NURSE BERNARD,IFOB, Status: Pen, Time: 8:00 AM FE-TWDCY-Zneosbp 206A IVF Work Phone: Start: 12-21-2021 RNVISIT, Provider: I VF NURSE BERNARD,IFOB, Status: Pen, Time: 8:00 AM RNVISIT, Provider: IVF NURSE BERNARD,IFOB, Status: Pen, Time: 8:00 AM BA-GFOTM-Vvhlih 310 IVF Work Phone: Start: 12-04-2021 ULTRALAB, Provider: OBGYN IVF RDMS BERNARD 1,MG OBGYN, Status: Pen, Time: 7:40 AM ULTRALAB, Provider: OBGYN IVF RDMS BERNARD 1,MG OBGYN, Status: Pen, Time: 7:40 AM SH-LLJRF-Hplzbo 310 IVF Work Phone: Start: 10-04-2021 HYSTEROSPY, Provider : Lon Johnson, Status: Pen, Time: 2:00 PM HYSTEROSPY, Provider: Lon Johnson, Status: Pen, Time: 2:00 PM RU-ZMQMO-Yqpdlo 320 Work Phone: Start: 09-21-2021 FUVREI, Provider: Zari Oviedo, Status: Pen, Time: 11:00 AM FUVREI, Provider: Zari Oviedo, Status: Pen, Time: 11:00 AM YW-LYCZQ-Sjbngte 206A IVF Work Phone: Start: 09-10-2021 RNVISIT, Provider: I VF ARYNA ZAPATA, Status: Pen, Time: 6:50 AM RNVISIT, Provider: IVF NURSE RAYNA WAGNER, Status: Pen, Time: 6:50 AM EZ-VZBPF-Zgkmlty 206A IVF Work Phone: Start: 07-17-2021 FUV, Provider: Flakita Antonio, Status: Pen, Time: 3:45 PM FUV, Provider: Flakita Antonio, Status: Pen, Time: 3:45 PM VC-Zwmwrawhse-Qxmei a Work Phone: Start: 06-15-2021 VIRFUVRU, Provider : Zari Oviedo, Status: Pen, Time: 1:30 PM VIRFUVCORNELLE, Provider: Zari Oviedo, Status: Pen, Time: 1:30 PM FX-Hxgbnpjags-Vvlgu tim 2100 DO Work Phone: Start: 06-15-2021 FUV, Provider: Flakita Antonio, Status: Pen, Time: 7:45 AM FUV, Provider: Flakita Antonio, Status: Pen, Time: 7:45 AM GW-Pejbkcxrll-Czmis tim 2100 DO Work Phone: Start: 02-22-2022 FUV, Provider: Flakita Antonio, Status: Pen, Time: 3:45 PM FUV, Provider: Flakita Antonio, Status: Pen, Time: 3:45 PM DG-Cflutcohfz-Unvuo ake 2100 DO Work Phone: Start: 04-24-2021 NPVRFRL, Provider: Flakita Antonio, Status: Pen, Time: 3:00 PM NPVRFRL, Provider: Flakita Antonio, Status: Pen, Time: 3:00 PM [facility] Work Phone: Start: 07-29-2019 Screening for malign ant neoplasm of breast Mammogram [facility] Start: 1999 Screening for malign ant neoplasm of cervix HPV/Cotest [facility] Start: 1997 Hepatitis B Vaccines (1 of 3 - 19+ 3-dose series) Hepatitis B Vaccines (1 of 3 - 19+ 3-dose series) [facility] Start: 1997 Zoster Vaccines (1 o f 2) Zoster Vaccines (1 of 2) [facility] Start: 1978 Lipid panel Lipid Panel [facility] Start: 1978 Screening for malign ant neoplasm of colon [facility] Start: 1978 Yearly Adult Physical Yearly Adult P hysical [facility] EQ-UVTFS-Gzalit 310 IVF Work Phone: NEGATED: Highlighted row has been ruled out! Planned Goals not documented OY-BPWKZ-Wpingw 310 IVF Work Phone: Immunizations Immunization Date Immunization Notes Care Provider So thurman 04-26-2021 pneumococcal polysaccharide vaccine, 23 valent Aquiles Escobedo Other [facility] Other 04-24-2021 Pneumococcal polysaccharide vaccine, 23 valent Aquiles Escobedo Work Phone: Demian chapa 2100 DO Work Phone: 06-29-2020 COVID-19 mRNA, Comirnaty (Pfizer) [facility] 06-09-2020 COVID-19 mRNA, Comirnaty (Pfizer) [facility] 03-10-2020 tetanus toxoid, redu rachel diphtheria toxoid, and acellular pertussis vaccine, adsorbed; Translations: [Tdap (Adacel)] Luana JORDAN-OBGYN-Risman 310 IVF Work Phone: Comment on above: Series: Payers Date Payer Category Payer Self-pay [id number] 2022 Unknown 2022 Unknown [id number] 2019 Unknown [id number] 1978 Unknown [id number] 2.16.84 0.1.664746.3.579.2.593 1978 Unknown [id number] 2.16.84 0.1.349624.3.579.2.593 1978 Unknown [id number] 2.16.84 0.1.736067.3.579.2.593 1978 Unknown [id number] 2.16.84 0.1.744793.3.579.2.593 1978 Unknown [id number] 2.16.84 0.1.733252.3.579.2.593 1978 Unknown [id number] 2.. 840.1.918137.3.579.2.356 1978 Unknown [id number] 2.. 840.1.551345.3.579.2.356 1978 Unknown [id number] 2.. 840.1.244802.3.579.2.356 1978 Unknown [id number] 2.. 840.1.118844.3.579.2.356 1978 Unknown [id number] 2.. 840.1.127974.3.579.2.356 1978 Unknown [id number] 2.16. 840.1.011029.3.579.2.356 1978 Unknown [id number] 2.16. 840.1.727839.3.579.2.356 1978 Unknown [id number] 2.16. 840.1.433759.3.579.2.356 1978 Unknown [id number] 2.16. 840.1.641711.3.579.2.356 1978 Unknown [id number] 2.16. 840.1.991809.3.579.2.356 1978 Unknown [id number] .16.8 40.1.113661.3.579.2.1244 1978 Unknown [id number] 2.16. 840.1.401401.3.579.2.196 1978 Unknown [id number] .16.8 40.1.333535.3.579.2.1245 1978 Unknown [id number] 2.16.8 40.1.971128.3.579.2.1245 1978 Unknown [id number] 2.16.8 40.1.231572.3.579.2.1245 Unknown [id number] Unknown [id number] 2.16.8 40.1.445819.3.579.2.243 Unknown [id number] 2.16.8 40.1.896666.3.579.2.243 Unknown [id number] 2.16.8 40.1.126311.3.579.2.243 Unknown [id number] 2.16.8 40.1.628422.3.579.2.243 Unknown [id number] 2.16.8 40.1.809103.3.579.2.531 Unknown [id number] 2.16.8 40.1.914491.3.579.2.531 Unknown [id number] 2.16.8 40.1.294807.3.579.2.531 Social History Date Type Detail Facility Never a smoker Never a smoker [facility] [address] [place] 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; 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1980 Sex Assigned At Female [facility] Start: 07-23-2017 Tobacco smoking status NHIS Never smoked tobacco (finding) [facility] Sex Assigned At [facility] Other Tobacco smoking status ALIS Tobacco smoking consumption unknown [facility] Work Phone: Start: 1980 Sex assigned at Not on file [facility] Work Phone: Start: 07-04-2023 End: 07-14-2023 Exposure to SARS-CoV-2 (event) Not sure [facility] NEGATED: Highlighted row - Never smoker MP-Reproductive Endocrinology-Mary 206 Work Phone: Medical Equipment Procedure Code Equipment Code Equipment Original Text Equipment Identifier Dates [employer]ix Speed [place] 2.3 Mm 2 Strands 2.0mm Xbraid Tt Suture Tape Case [id number] Start: 06-11-2019 Comment on above: Description: Convert ed from [facility]. Please see archived information for full log information. Reel Stt 4.5 Mm [place] Case [id number] Start: 06-11-2019 Comment on above: Description: Convert ed from [facility]. Please see archived information for full log information. [employer]ix Speed [place] 2.3 Mm 2 Strands 2.0 Mm Xbraid Tt Suture Tape Case [id number] Start: 06-11-2019 Comment on above: Description: Convert ed from [facility]. Please see archived information for full log information. Functional Status Date Assessment Result Facility NEGATED: Highlighted row Functional performance Functional status health issues are not documented Disease [facility]-Reproductive Endocrinology-[place] tim 206 Work Phone: Mental Status Date Assessment Result Facility NEGATED: Highlighted row Cognitive function [Interpretation] Cognitive status health issues are not documented Disease [facility]-Reproductive Endocrinology-[place] tim 206 Work Phone: Clinical Notes 11-29-2020 to 11-27-2022 Note Date & Type Note Facility 11-27-2022 Evaluation note Encounter Date Diagnosis Assessment Notes Oct, Wellness examination (ICD-10 - Z00.00) Healthy diet and exercise. Reviewed age-appropria te preventive testing recommended. Oct, Crohn's disease of small intestine without complications (ICD-10 - K50.00) No active disease, not prescribed maintanence therapy, f/u GI Oct, Gastroesophageal reflux disease with esophagitis without hemorrhage (ICD-10 - K21.00) Diet instructions: Smaller portions, avoid eating and laying flat, avoid eating or drinking prior to bedtime. Weight loss. Oct, Autoimmune thyroiditis (ICD-10 - E06.3) Euthyroid clinically, yearly TSH Oct, Other specified hypothyroidism (ICD-10 - E03.8) Oct, Recurrent major depressive disorder, in full remission (ICD-10 - F33.42) Stable w/ treatment Continue healthy diet, exercise, keep active [facility] Other 04-17-2022 History of Present illness Narrative* Patient is a 41 year old female who presents with history of infertility. * Patient of Dr. 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: * History of STI or PID: pt denies * Last pap smear: 07/2018, normal cytology negative HPV * History of abnormal paps: pt denies * Mammogram: 06/2018, normal (no repeat since r/t and ) * Pelvic pain: pt denies * Pain with intercourse, bowel movements or full bladder: pt denies * MENSTRUAL HISTORY: * LMP: 06/14/2021 (this is first menses since delivery) * Contraception: * Cycle length: just got first period since delivery r/t * Bleeding length: * Heavy bleeding * Dysmenorrhea: * ENDOCRINE/INFERTILITY HISTORY: * Duration of infertility: * Coital Activity/week: * Nipple Discharge: * Vision changes / headaches: pt denies * Excess hair growth: pt denies * Acne/oily skin: pt denies * Recent weight change: pt is back to weight * Exercise: none * PMH: none * MEDICATION: Sertraline * PSH: orthopedic surgery * PSYCH HISTORY: anxiety ( well controlled on Sertraline) * SOCIAL HISTORY: * 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 * Verbal consent was requested and obtained from WILD YI on this date, 06/15/2021 01:30 PM , for a telehealth visit. * The patient is being seen today for a Follow Up Visit; patient desires another . Virtual visit via telehealth VN-OCTCB-Jitrbxx 135L IVF Work Phone: 1(878) 483-788001-25-2022 History of Present illness Narrative* Since last visit, 04/24/2021, patient started HyQvia 50 g monthly around May-June and she did notreturn for her 3 month visit. Sep is her 3rd month and she is due next week. * She states the infusions are going well but she does have bloating for 2-3 days and erythema at herinjection site, but they resolve on their own. * She has had viral illnesses but denies any true infections and has not required antibiotics. * She is 5 weeks per frozen embryo transfer. 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 She was on steroids with her daughter and carried full term compared to never carrying past 9 weeks. Her daughter is currently 2 years old. * Her daughter is sick frequently and patient states she has no immune system. She follows with Dr. Maldonado. 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 HX-Essedfcoqo-Fxjbdeuo 2099 DO Work Phone: 1(578) 167-534209-01-2021 History of Present illness Narrative* WILD YI is a 41 year old female, new patient, presenting for immune deficiency disorder. WILD was referred by Anthony Benz MD for evaluation and management. * Patient saw Dr. 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 Sinusitis episodes are now monthly. He did not perform endoscopy, looked in her ears and referred her to us. * Her daughter has been ill this year and she ends up sick also. She last had Zithromax in Jan 2021. * She does not react to any vaccines and is questioning if she should have her COVID vaccine. * She has Hx of Crohns with intermittent diarrhea. 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 [id number]-Seqsujxfrw-Utgatrer 2099 DO Work Phone: [phone] [phone] History of Present illness Narrative* WILD YI is a 41 year old female, new patient, presenting for immune deficiency disorder. WILD was referred by Anthony Benz MD for evaluation and management. * Patient saw Dr. 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 Sinusitis episodes are now monthly. He did not perform endoscopy, looked in her ears and referred her to us. * Her daughter has been ill this year and patient inevitably ends up ill also. She last had Zithromaxin Jan 2021. * She states does not react to any vaccines and is questioning if she should have her COVID vaccine. * She has Hx of Crohns with intermittent diarrhea. 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 [id number]-Dsskyrnx 2099 DO Work Phone: [phone] History of Present illness Narrative* WILD YI is a 41 year old female, new patient, presenting for immune deficiency disorder. WILD was referred by Anthony Benz MD for evaluation and management. * Patient saw Dr. 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 Sinusitis episodes are now monthly. He did not perform endoscopy, looked in her ears and referred her to us. * Her daughter has been ill this year and patient inevitably ends up ill also. She last had Zithromaxin Jan 2021. * She states does not react to any vaccines and is questioning if she should have her COVID vaccine. * She has Hx of Crohns with intermittent diarrhea. 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 [id number] 2100 DO Work Phone: Evaluation noteNo assessment information available [facility] Work Phone: [facility]No [facility] [employer] Other Evaluation note* Diagnosis Recurrent major depressive disorder, in partial remission ([facility])- Primary documented in this encounter [facility] Work Phone: History general Narrative - Reported* Type Description Date Medical History Generalized anxiety disorder Medical History Major depressive disorder, recur rent, mild Medical History Crohn's disease of small intesti ne without complications Medical History Other specified hypothyroidism Surgical History laparoscopy Surgical History cholecystectomy Surgical History foot surgery Hospitalization History see above surgical histo ry [facility] [employer] Other Summary Purpose Family History No Family History Records Found aunt Name Dates Details Family history of malignant neoplasm of female breast(V16.3, Z80.3) Status:Active Mother Name Dates Details No pertinent family history( V49.89, Z78.9) Status:Active Father Name Dates Details No pertinent family history( V49.89, Z78.9) Status:Active aunt Name Dates Details Family history of malignant neoplasm of female breast(V16.3, Z80.3) Status:Active Mother Name Dates Details No pertinent family history( V49.89, Z78.9) Status:Active Father Name Dates Details No pertinent family history( V49.89, Z78.9) Status:Active aunt Name Dates Details Family history of malignant neoplasm of female breast(V16.3, Z80.3) Status:Active Mother Name Dates Details No pertinent family history( V49.89, Z78.9) Status:Active Father Name Dates Details No pertinent family history( V49.89, Z78.9) Status:Active aunt Name Dates Details Family history of malignant neoplasm of female breast(V16.3, Z80.3) Status:Active Mother Name Dates Details No pertinent family history( V49.89, Z78.9) Status:Active Father Name Dates Details No pertinent family history( V49.89, Z78.9) Status:Active aunt Name Dates Details Family history of malignant neoplasm of female breast(V16.3, Z80.3) Status:Active Mother Name Dates Details No pertinent family history( V49.89, Z78.9) Status:Active Father Name Dates Details No pertinent family history( V49.89, Z78.9) Status:Active aunt Name Dates Details Family history of malignant neoplasm of female breast(V16.3, Z80.3) Status:Active Mother Name Dates Details No pertinent family history( V49.89, Z78.9) Status:Active Father Name Dates Details No pertinent family history( V49.89, Z78.9) Status:Active aunt Name Dates Details Family history of malignant neoplasm of female breast(V16.3, Z80.3) Status:Active Mother Name Dates Details No pertinent family history( V49.89, Z78.9) Status:Active Father Name Dates Details No pertinent family history( V49.89, Z78.9) Status:Active aunt Name Dates Details Family history of malignant neoplasm of female breast(V16.3, Z80.3) Status:Active Mother Name Dates Details No pertinent family history( V49.89, Z78.9) Status:Active Father Name Dates Details No pertinent family history( V49.89, Z78.9) Status:Active aunt Name Dates Details Family history of malignant neoplasm of female breast(V16.3, Z80.3) Status:Active Mother Name Dates Details No pertinent family history( V49.89, Z78.9) Status:Active Father Name Dates Details No pertinent family history( V49.89, Z78.9) Status:Active aunt Name Dates Details Family history of malignant neoplasm of female breast(V16.3, Z80.3) Status:Active Mother Name Dates Details No pertinent family history( V49.89, Z78.9) Status:Active Father Name Dates Details No pertinent family history( V49.89, Z78.9) Status:Active aunt Name Dates Details Family history of malignant neoplasm of female breast(V16.3, Z80.3) Status:Active Mother Name Dates Details No pertinent family history( V49.89, Z78.9) Status:Active Father Name Dates Details No pertinent family history( V49.89, Z78.9) Status:Active Unknown Family Member Name Dates Details Family history of malignant neoplasm of female breast: Paternal Aunt(V16.3, Z80.3) Status:Active Denies Family history of bir th defect: Family History(V19.5, Z82.79) Status: No pertinent family history: Mother, Father(V49.89, Z78.9) Status:Active Denies Family history of men pattie retardation: Multiple Family Members(V18.4, Z81.0) Status: Unknown Family Member Name Dates Details Family history of malignant neoplasm of female breast: Paternal Aunt(V16.3, Z80.3) Status:Active Denies Family history of bir th defect: Family History(V19.5, Z82.79) Status: No pertinent family history: Mother, Father(V49.89, Z78.9) Status:Active Denies Family history of men pattie retardation: Multiple Family Members(V18.4, Z81.0) Status: Unknown Family Member Name Dates Details No pertinent family history: Mother, Father(V49.89, Z78.9) Status:Active Denies Family history of men pattie retardation: Multiple Family Members(V18.4, Z81.0) Status: Denies Family history of bir th defect: Family History(V19.5, Z82.79) Status: Family history of malignant neoplasm of female breast: Paternal Aunt(V16.3, Z80.3) Status:Active Unknown Family Member Name Dates Details Family history of malignant neoplasm of female breast: Paternal Aunt(V16.3, Z80.3) Status:Active Denies Family history of bir th defect: Family History(V19.5, Z82.79) Status: No pertinent family history: Mother, Father(V49.89, Z78.9) Status:Active Denies Family history of men pattie retardation: Multiple Family Members(V18.4, Z81.0) Status: Unknown Family Member Name Dates Details Family history of malignant neoplasm of female breast: Paternal Aunt(V16.3, Z80.3) Status:Active Denies Family history of bir th defect: Family History(V19.5, Z82.79) Status: No pertinent family history: Mother, Father(V49.89, Z78.9) Status:Active Denies Family history of men pattie retardation: Multiple Family Members(V18.4, Z81.0) Status: Unknown Family Member Name Dates Details Family history of malignant neoplasm of female breast: Paternal Aunt(V16.3, Z80.3) Status:Active Denies Family history of bir th defect: Family History(V19.5, Z82.79) Status: No pertinent family history: Mother, Father(V49.89, Z78.9) Status:Active Denies Family history of men pattie retardation: Multiple Family Members(V18.4, Z81.0) Status: Unknown Family Member Name Dates Details Family history of malignant neoplasm of female breast: Paternal Aunt(V16.3, Z80.3) Status:Active Denies Family history of bir th defect: Family History(V19.5, Z82.79) Status: No pertinent family history: Mother, Father(V49.89, Z78.9) Status:Active Denies Family history of men pattie retardation: Multiple Family Members(V18.4, Z81.0) Status: Unknown Family Member Name Dates Details Denies Family history of men pattie retardation: Multiple Family Members(V18.4, Z81.0) Status: No pertinent family history: Mother, Father(V49.89, Z78.9) Status:Active Denies Family history of bir th defect: Family History(V19.5, Z82.79) Status: Family history of malignant neoplasm of female breast: Paternal Aunt(V16.3, Z80.3) Status:Active Unknown Family Member Name Dates Details Denies Family history of bir th defect: Family History(V19.5, Z82.79) Status: Family history of malignant neoplasm of female breast: Paternal Aunt(V16.3, Z80.3) Status:Active No pertinent family history: Mother, Father(V49.89, Z78.9) Status:Active Denies Family history of men pattie retardation: Multiple Family Members(V18.4, Z81.0) Status: Unknown Family Member Name Dates Details Family history of malignant neoplasm of female breast: Paternal Aunt(V16.3, Z80.3) Status:Active Denies Family history of bir th defect: Family History(V19.5, Z82.79) Status: No pertinent family history: Mother, Father(V49.89, Z78.9) Status:Active Denies Family history of men pattie retardation: Multiple Family Members(V18.4, Z81.0) Status: Unknown Family Member Name Dates Details Family history of malignant neoplasm of female breast: Paternal Aunt(V16.3, Z80.3) Status:Active Denies Family history of bir th defect: Family History(V19.5, Z82.79) Status: Denies Family history of men pattie retardation: Multiple Family Members(V18.4, Z81.0) Status: Family history of cardiac di sorder: Mother(V17.49, Z82.49) Status:Active Sinus problem: Father Status:Active Unknown Family Member Name Dates Details Denies Family history of men pattie retardation: Multiple Family Members(V18.4, Z81.0) Status: Family history of cardiac di sorder: Mother(V17.49, Z82.49) Status:Active Sinus problem: Father Status:Active Denies Family history of bir th defect: Family History(V19.5, Z82.79) Status: Family history of malignant neoplasm of female breast: Paternal Aunt(V16.3, Z80.3) Status:Active Unknown Family Member Name Dates Details Denies Family history of men pattie retardation: Multiple Family Members(V18.4, Z81.0) Status: Sinus problem: Father Status:Active Family history of cardiac di sorder: Mother(V17.49, Z82.49) Status:Active Denies Family history of bir th defect: Family History(V19.5, Z82.79) Status: Family history of malignant neoplasm of female breast: Paternal Aunt(V16.3, Z80.3) Status:Active Unknown Family Member Name Dates Details Denies Family history of bir th defect: Family History(V19.5, Z82.79) Status: Denies Family history of men pattie retardation: Multiple Family Members(V18.4, Z81.0) Status: Sinus problem: Father Status:Active Family history of cardiac di sorder: Mother(V17.49, Z82.49) Status:Active Family history of malignant neoplasm of female breast: Paternal Aunt(V16.3, Z80.3) Status:Active Unknown Family Member Name Dates Details Family history of malignant neoplasm of female breast: Paternal Aunt(V16.3, Z80.3) Status:Active Denies Family history of bir th defect: Family History(V19.5, Z82.79) Status: Denies Family history of men pattie retardation: Multiple Family Members(V18.4, Z81.0) Status: Family history of cardiac di sorder: Mother(V17.49, Z82.49) Status:Active Sinus problem: Father Status:Active Unknown Family Member Name Dates Details Denies Family history of bir th defect: Family History(V19.5, Z82.79) Status: Denies Family history of men pattie retardation: Multiple Family Members(V18.4, Z81.0) Status: Family history of cardiac di sorder: Mother(V17.49, Z82.49) Status:Active Sinus problem: Father Status:Active Family history of malignant neoplasm of female breast: Paternal Aunt(V16.3, Z80.3) Status:Active Unknown Family Member Name Dates Details Denies Family history of bir th defect: Family History(V19.5, Z82.79) Status: Denies Family history of men pattie retardation: Multiple Family Members(V18.4, Z81.0) Status: Family history of cardiac di sorder: Mother(V17.49, Z82.49) Status:Active Sinus problem: Father Status:Active Family history of malignant neoplasm of female breast: Paternal Aunt(V16.3, Z80.3) Status:Active Unknown Family Member Name Dates Details Denies Family history of bir th defect: Family History(V19.5, Z82.79) Status: Denies Family history of men pattie retardation: Multiple Family Members(V18.4, Z81.0) Status: Family history of cardiac di sorder: Mother(V17.49, Z82.49) Status:Active Sinus problem: Father Status:Active Family history of malignant neoplasm of female breast: Paternal Aunt(V16.3, Z80.3) Status:Active Unknown Family Member Name Dates Details Family history of malignant neoplasm of female breast: Paternal Aunt(V16.3, Z80.3) Status:Active Denies Family history of bir th defect: Family History(V19.5, Z82.79) Status: Denies Family history of men pattie retardation: Multiple Family Members(V18.4, Z81.0) Status: Family history of cardiac di sorder: Mother(V17.49, Z82.49) Status:Active Sinus problem: Father Status:Active Unknown Family Member Name Dates Details Family history of malignant neoplasm of female breast: Paternal Aunt(V16.3, Z80.3) Status:Active Denies Family history of bir th defect: Family History(V19.5, Z82.79) Status: Denies Family history of men pattie retardation: Multiple Family Members(V18.4, Z81.0) Status: Family history of cardiac di sorder: Mother(V17.49, Z82.49) Status:Active Sinus problem: Father Status:Active Unknown Family Member Name Dates Details Family history of malignant neoplasm of female breast: Paternal Aunt(V16.3, Z80.3) Status:Active Denies Family history of bir th defect: Family History(V19.5, Z82.79) Status: Denies Family history of men pattie retardation: Multiple Family Members(V18.4, Z81.0) Status: Family history of cardiac di sorder: Mother(V17.49, Z82.49) Status:Active Sinus problem: Father Status:Active Unknown Family Member Name Dates Details Denies Family history of bir th defect: Family History(V19.5, Z82.79) Status: Denies Family history of men pattie retardation: Multiple Family Members(V18.4, Z81.0) Status: Family history of malignant neoplasm of female breast: Paternal Aunt(V16.3, Z80.3) Status:Active Family history of cardiac di sorder: Mother(V17.49, Z82.49) Status:Active Sinus problem: Father Status:Active Unknown Family Member Name Dates Details Denies Family history of men pattie retardation: Multiple Family Members(V18.4, Z81.0) Status: Sinus problem: Father Status:Active Family history of cardiac di sorder: Mother(V17.49, Z82.49) Status:Active Denies Family history of bir th defect: Family History(V19.5, Z82.79) Status: Family history of malignant neoplasm of female breast: Paternal Aunt(V16.3, Z80.3) Status:Active Unknown Family Member Name Dates Details Family history of malignant neoplasm of female breast: Paternal Aunt(V16.3, Z80.3) Status:Active Denies Family history of bir th defect: Family History(V19.5, Z82.79) Status: Denies Family history of men pattie retardation: Multiple Family Members(V18.4, Z81.0) Status: Family history of cardiac di sorder: Mother(V17.49, Z82.49) Status:Active Sinus problem: Father Status:Active Unknown Family Member Name Dates Details Denies Family history of men pattie retardation: Multiple Family Members(V18.4, Z81.0) Status: Sinus problem: Father Status:Active Family history of cardiac di sorder: Mother(V17.49, Z82.49) Status:Active Denies Family history of bir th defect: Family History(V19.5, Z82.79) Status: Family history of malignant neoplasm of female breast: Paternal Aunt(V16.3, Z80.3) Status:Active Unknown Family Member Name Dates Details Family history of malignant neoplasm of female breast: Paternal Aunt(V16.3, Z80.3) Status:Active Denies Family history of bir th defect: Family History(V19.5, Z82.79) Status: Denies Family history of men pattie retardation: Multiple Family Members(V18.4, Z81.0) Status: Family history of cardiac di sorder: Mother(V17.49, Z82.49) Status:Active Sinus problem: Father Status:Active Unknown Family Member Name Dates Details Family history of malignant neoplasm of female breast: Paternal Aunt(V16.3, Z80.3) Status:Active Denies Family history of bir th defect: Family History(V19.5, Z82.79) Status: Denies Family history of men pattie retardation: Multiple Family Members(V18.4, Z81.0) Status: Family history of cardiac di sorder: Mother(V17.49, Z82.49) Status:Active Sinus problem: Father Status:Active Unknown Family Member Name Dates Details Family history of malignant neoplasm of female breast: Paternal Aunt(V16.3, Z80.3) Status:Active Denies Family history of bir th defect: Family History(V19.5, Z82.79) Status: Denies Family history of men pattie retardation: Multiple Family Members(V18.4, Z81.0) Status: Family history of cardiac di sorder: Mother(V17.49, Z82.49) Status:Active Sinus problem: Father Status:Active Unknown Family Member Name Dates Details Denies Family history of bir th defect: Family History(V19.5, Z82.79) Status: Denies Family history of men pattie retardation: Multiple Family Members(V18.4, Z81.0) Status: Family history of cardiac di sorder: Mother(V17.49, Z82.49) Status:Active Sinus problem: Father Status:Active Family history of malignant neoplasm of female breast: Paternal Aunt(V16.3, Z80.3) Status:Active Unknown Family Member Name Dates Details Denies Family history of men pattie retardation: Multiple Family Members(V18.4, Z81.0) Status: Sinus problem: Father Status:Active Family history of cardiac di sorder: Mother(V17.49, Z82.49) Status:Active Denies Family history of bir th defect: Family History(V19.5, Z82.79) Status: Family history of malignant neoplasm of female breast: Paternal Aunt(V16.3, Z80.3) Status:Active Unknown Family Member Name Dates Details Denies Family history of men pattie retardation: Multiple Family Members(V18.4, Z81.0) Status: Family history of cardiac di sorder: Mother(V17.49, Z82.49) Status:Active Sinus problem: Father Status:Active Denies Family history of bir th defect: Family History(V19.5, Z82.79) Status: Family history of malignant neoplasm of female breast: Paternal Aunt(V16.3, Z80.3) Status:Active Unknown Family Member Name Dates Details Family history of malignant neoplasm of female breast: Paternal Aunt(V16.3, Z80.3) Status:Active Denies Family history of bir th defect: Family History(V19.5, Z82.79) Status: Denies Family history of men pattie retardation: Multiple Family Members(V18.4, Z81.0) Status: Family history of cardiac di sorder: Mother(V17.49, Z82.49) Status:Active Sinus problem: Father Status:Active Unknown Family Member Name Dates Details Family history of malignant neoplasm of female breast: Paternal Aunt(V16.3, Z80.3) Status:Active Denies Family history of bir th defect: Family History(V19.5, Z82.79) Status: Denies Family history of men pattie retardation: Multiple Family Members(V18.4, Z81.0) Status: Family history of cardiac di sorder: Mother(V17.49, Z82.49) Status:Active Sinus problem: Father Status:Active Unknown Family Member Name Dates Details Denies Family history of men pattie retardation: Multiple Family Members(V18.4, Z81.0) Status: Family history of cardiac di sorder: Mother(V17.49, Z82.49) Status:Active Sinus problem: Father Status:Active Denies Family history of bir th defect: Family History(V19.5, Z82.79) Status: Family history of malignant neoplasm of female breast: Paternal Aunt(V16.3, Z80.3) Status:Active Unknown Family Member Name Dates Details Denies Family history of bir th defect: Family History(V19.5, Z82.79) Status: Denies Family history of men pattie retardation: Multiple Family Members(V18.4, Z81.0) Status: Family history of cardiac di sorder: Mother(V17.49, Z82.49) Status:Active Sinus problem: Father Status:Active Family history of malignant neoplasm of female breast: Paternal Aunt(V16.3, Z80.3) Status:Active Unknown Family Member Name Dates Details Denies Family history of men pattie retardation: Multiple Family Members(V18.4, Z81.0) Status: Family history of cardiac di sorder: Mother(V17.49, Z82.49) Status:Active Sinus problem: Father Status:Active Denies Family history of bir th defect: Family History(V19.5, Z82.79) Status: Family history of malignant neoplasm of female breast: Paternal Aunt(V16.3, Z80.3) Status:Active Unknown Family Member Name Dates Details Family history of malignant neoplasm of female breast: Paternal Aunt(V16.3, Z80.3) Status:Active Denies Family history of bir th defect: Family History(V19.5, Z82.79) Status: Denies Family history of men pattie retardation: Multiple Family Members(V18.4, Z81.0) Status: Family history of cardiac di sorder: Mother(V17.49, Z82.49) Status:Active Sinus problem: Father Status:Active Unknown Family Member Name Dates Details Denies Family history of men pattie retardation: Multiple Family Members(V18.4, Z81.0) Status: Sinus problem: Father Status:Active Family history of cardiac di sorder: Mother(V17.49, Z82.49) Status:Active Denies Family history of bir th defect: Family History(V19.5, Z82.79) Status: Family history of malignant neoplasm of female breast: Paternal Aunt(V16.3, Z80.3) Status:Active Unknown Family Member Name Dates Details Denies Family history of men pattie retardation: Multiple Family Members(V18.4, Z81.0) Status: Sinus problem: Father Status:Active Family history of cardiac di sorder: Mother(V17.49, Z82.49) Status:Active Denies Family history of bir th defect: Family History(V19.5, Z82.79) Status: Family history of malignant neoplasm of female breast: Paternal Aunt(V16.3, Z80.3) Status:Active Unknown Family Member Name Dates Details Family history of malignant neoplasm of female breast: Paternal Aunt(V16.3, Z80.3) Status:Active Denies Family history of bir th defect: Family History(V19.5, Z82.79) Status: Denies Family history of men pattie retardation: Multiple Family Members(V18.4, Z81.0) Status: Family history of cardiac di sorder: Mother(V17.49, Z82.49) Status:Active Sinus problem: Father Status:Active Unknown Family Member Name Dates Details Denies Family history of men pattie retardation: Multiple Family Members(V18.4, Z81.0) Status: Family history of cardiac di sorder: Mother(V17.49, Z82.49) Status:Active Sinus problem: Father Status:Active Denies Family history of bir th defect: Family History(V19.5, Z82.79) Status: Family history of malignant neoplasm of female breast: Paternal Aunt(V16.3, Z80.3) Status:Active Unknown Family Member Name Dates Details Family history of malignant neoplasm of female breast: Paternal Aunt(V16.3, Z80.3) Status:Active Denies Family history of bir th defect: Family History(V19.5, Z82.79) Status: Denies Family history of men pattie retardation: Multiple Family Members(V18.4, Z81.0) Status: Family history of cardiac di sorder: Mother(V17.49, Z82.49) Status:Active Sinus problem: Father Status:Active Unknown Family Member Name Dates Details Family history of malignant neoplasm of female breast: Paternal Aunt(V16.3, Z80.3) Status:Active Denies Family history of bir th defect: Family History(V19.5, Z82.79) Status: Denies Family history of men pattie retardation: Multiple Family Members(V18.4, Z81.0) Status: Family history of cardiac di sorder: Mother(V17.49, Z82.49) Status:Active Sinus problem: Father Status:Active Unknown Family Member Name Dates Details Family history of malignant neoplasm of female breast: Paternal Aunt(V16.3, Z80.3) Status:Active Denies Family history of bir th defect: Family History(V19.5, Z82.79) Status: Denies Family history of men pattie retardation: Multiple Family Members(V18.4, Z81.0) Status: Family history of cardiac di sorder: Mother(V17.49, Z82.49) Status:Active Sinus problem: Father Status:Active Unknown Family Member Name Dates Details Family history of malignant neoplasm of female breast: Paternal Aunt(V16.3, Z80.3) Status:Active Denies Family history of bir th defect: Family History(V19.5, Z82.79) Status: Denies Family history of men pattie retardation: Multiple Family Members(V18.4, Z81.0) Status: Family history of cardiac di sorder: Mother(V17.49, Z82.49) Status:Active Sinus problem: Father Status:Active Unknown Family Member Name Dates Details Denies Family history of bir th defect: Family History(V19.5, Z82.79) Status: Denies Family history of men pattie retardation: Multiple Family Members(V18.4, Z81.0) Status: Family history of cardiac di sorder: Mother(V17.49, Z82.49) Status:Active Sinus problem: Father Status:Active Family history of malignant neoplasm of female breast: Paternal Aunt(V16.3, Z80.3) Status:Active Unknown Family Member Name Dates Details Family history of malignant neoplasm of female breast: Paternal Aunt(V16.3, Z80.3) Status:Active Denies Family history of bir th defect: Family History(V19.5, Z82.79) Status: Denies Family history of men pattie retardation: Multiple Family Members(V18.4, Z81.0) Status: Family history of cardiac di sorder: Mother(V17.49, Z82.49) Status:Active Sinus problem: Father Status:Active Unknown Family Member Name Dates Details Family history of malignant neoplasm of female breast: Paternal Aunt(V16.3, Z80.3) Status:Active Denies Family history of bir th defect: Family History(V19.5, Z82.79) Status: Denies Family history of men pattie retardation: Multiple Family Members(V18.4, Z81.0) Status: Family history of cardiac di sorder: Mother(V17.49, Z82.49) Status:Active Sinus problem: Father Status:Active Unknown Family Member Name Dates Details Family history of malignant neoplasm of female breast: Paternal Aunt(V16.3, Z80.3) Status:Active Denies Family history of bir th defect: Family History(V19.5, Z82.79) Status: Denies Family history of men pattie retardation: Multiple Family Members(V18.4, Z81.0) Status: Family history of cardiac di sorder: Mother(V17.49, Z82.49) Status:Active Sinus problem: Father Status:Active Unknown Family Member Name Dates Details Family history of malignant neoplasm of female breast: Paternal Aunt(V16.3, Z80.3) Status:Active Denies Family history of bir th defect: Family History(V19.5, Z82.79) Status: Denies Family history of men pattie retardation: Multiple Family Members(V18.4, Z81.0) Status: Family history of cardiac di sorder: Mother(V17.49, Z82.49) Status:Active Sinus problem: Father Status:Active Unknown Family Member Name Dates Details Family history of malignant neoplasm of female breast: Paternal Aunt(V16.3, Z80.3) Status:Active Denies Family history of bir th defect: Family History(V19.5, Z82.79) Status: Denies Family history of men pattie retardation: Multiple Family Members(V18.4, Z81.0) Status: Sinus problem: Father Status:Active Family history of cardiac di sorder: Mother(V17.49, Z82.49) Status:Active Unknown Family Member Name Dates Details Denies Family history of men pattie retardation: Multiple Family Members(V18.4, Z81.0) Status: Sinus problem: Father Status:Active Family history of cardiac di sorder: Mother(V17.49, Z82.49) Status:Active Denies Family history of bir th defect: Family History(V19.5, Z82.79) Status: Family history of malignant neoplasm of female breast: Paternal Aunt(V16.3, Z80.3) Status:Active Unknown Family Member Name Dates Details Denies Family history of men pattie retardation: Multiple Family Members(V18.4, Z81.0) Status: Family history of cardiac di sorder: Mother(V17.49, Z82.49) Status:Active Sinus problem: Father Status:Active Denies Family history of bir th defect: Family History(V19.5, Z82.79) Status: Family history of malignant neoplasm of female breast: Paternal Aunt(V16.3, Z80.3) Status:Active Unknown Family Member Name Dates Details Denies Family history of bir th defect: Family History(V19.5, Z82.79) Status: Denies Family history of men pattie retardation: Multiple Family Members(V18.4, Z81.0) Status: Sinus problem: Father Status:Active Family history of cardiac di sorder: Mother(V17.49, Z82.49) Status:Active Family history of malignant neoplasm of female breast: Paternal Aunt(V16.3, Z80.3) Status:Active Unknown Family Member Name Dates Details Family history of malignant neoplasm of female breast: Paternal Aunt(V16.3, Z80.3) Status:Active Denies Family history of bir th defect: Family History(V19.5, Z82.79) Status: Denies Family history of men pattie retardation: Multiple Family Members(V18.4, Z81.0) Status: Family history of cardiac di sorder: Mother(V17.49, Z82.49) Status:Active Sinus problem: Father Status:Active Unknown Family Member Name Dates Details Family history of malignant neoplasm of female breast: Paternal Aunt(V16.3, Z80.3) Status:Active Denies Family history of bir th defect: Family History(V19.5, Z82.79) Status: Denies Family history of men pattie retardation: Multiple Family Members(V18.4, Z81.0) Status: Family history of cardiac di sorder: Mother(V17.49, Z82.49) Status:Active Sinus problem: Father Status:Active Unknown Family Member Name Dates Details Sinus problem: Father Status:Active Family history of cardiac di sorder: Mother(V17.49, Z82.49) Status:Active Denies Family history of men pattie retardation: Multiple Family Members(V18.4, Z81.0) Status: Denies Family history of bir th defect: Family History(V19.5, Z82.79) Status: Family history of malignant neoplasm of female breast: Paternal Aunt(V16.3, Z80.3) Status:Active Unknown Family Member Name Dates Details Denies Family history of men pattie retardation: Multiple Family Members(V18.4, Z81.0) Status: Family history of cardiac di sorder: Mother(V17.49, Z82.49) Status:Active Sinus problem: Father Status:Active Denies Family history of bir th defect: Family History(V19.5, Z82.79) Status: Family history of malignant neoplasm of female breast: Paternal Aunt(V16.3, Z80.3) Status:Active Advance Directives No Advanced Directives Records Found Advance Directive Response Recorded Date/ Time Advance Directives No July 23, 2 018 2:26pm Procedure Findings Note Post Operative Note: PreOp D iagnosis: Haglunds deformity, Left achilles tendinopathy, Left Post-Procedure Diagnosis: same Procedure: 1. Left tendon detachment reattachment 2. Left resection of calcaneal spur 3. Injection PRP Surgeon: Christopher Harris Resident/Fellow/Other Planishing Press Operator: Cruz Robles, PGY-3, Jayne Martin, PGY-1 Anesthesia: General Estimated Blood Loss (mL): less than 3cc Specimen: no Complications: none Findings: consistent with diagnosis Patient Returned To/Condition: Vital signs stable Signature/Cosignature/Attestation: Note Completion: I am a:Resident/Fellow Attending AttestationI was present for the entire procedure Electronic Signatures: Christopher Harris (DPM) (Signed 06-Jul-2019 23:05) Authored: Post Operative Note, Signature/Cosignature/Attestation Co-Signer: Post Operative Note, Signature/Cosignature/Attestation Jayne Martin (CARLOS (Resident)) (Signed 11-Jun-2019 17:34) Authored: Post Operative Note, Signature/Cosignature/Attestation Last Updated: 06-Jul-2019 23: (more content not included)... Chief Complaint * AccompaniedBy_UH: * ChiefComplaintFreeTextNoteForm_UH: * AccompaniedBy_UH: * ChiefComplaintFreeTextNoteForm_UH: * AccompaniedBy_UH: * ChiefComplaintFreeTextNoteForm_UH: * AccompaniedBy_UH: * ChiefComplaintFreeTextNoteForm_UH: * BILATERAL TM PERF * DR. AQUILES ESCOBEDO * AccompaniedBy_UH: * PsychChiefComplaintFreeTextNoteForm_UH: * AccompaniedBy_UH: * PsychChiefComplaintFreeTextNoteForm_UH: New patient visit for immune deficiency disorderNew patient visit for immune deficiency disorderNew patient visit for immune deficiency disorder* AccompaniedBy_UH: * PsychChiefComplaintFreeTextNoteForm_UH: * AccompaniedBy_UH: * PsychChiefComplaintFreeTextNoteForm_UH: * AccompaniedBy_UH: * PsychChiefComplaintFreeTextNoteForm_UH: The patient is being seen today for a PAP.Endosee* AccompaniedBy_UH: * PsychChiefComplaintFreeTextNoteForm_UH: * AccompaniedBy_UH: * PsychChiefComplaintFreeTextNoteForm_UH: Followup for [facility] followup* AccompaniedBy_UH: * PsychChiefComplaintFreeTextNoteForm_UH: * AccompaniedBy_UH: * PsychChiefComplaintFreeTextNoteForm_UH: * AccompaniedBy_UH: * PsychChiefComplaintFreeTextNoteForm_UH: * AccompaniedBy_UH: * PsychChiefComplaintFreeTextNoteForm_UH: * AccompaniedBy_UH: * PsychChiefComplaintFreeTextNoteForm_UH: * AccompaniedBy_UH: * PsychChiefComplaintFreeTextNoteForm_UH: * AccompaniedBy_UH: * PsychChiefComplaintFreeTextNoteForm_UH: * AccompaniedBy_UH: * PsychChiefComplaintFreeTextNoteForm_UH: Chief Complaint and Reason for Visit Chief Complaint 35 weeks gestation o f ; screenin Additional Source Comments INFORMATION SOURCE (unrecogn ized section and content) DATE CREATED AUTHOR 03/09/2018 [facility] [place] DATE CREATED AUTHOR AUTHOR'S ORGANIZ ATION 07/06/2019 [facility] DATE CREATED AUTHOR AUTHOR'S ORGANIZ ATION 10/17/[address] [facility] [place] DATE CREATED AUTHOR AUTHOR'S ORGANIZ ATION 03/28/2020 [facility] [place] CREATED AUTHOR AUTHOR'S ORGANIZ ATION 01/01/2022 [employer] DATE CREATED AUTHOR AUTHOR'S ORGANIZ ATION 07/12/2022 [facility] DATE CREATED AUTHOR AUTHOR'S ORGANIZ ATION 09/06/2022 [facility] [place] DATE CREATED AUTHOR AUTHOR'S ORGANIZ ATION 01/14/2023 [facility] DATE CREATED AUTHOR AUTHOR'S ORGANIZ ATION 03/23/2023 [facility] DATE CREATED AUTHOR AUTHOR'S ORGANIZ ATION 08/10/2023 [facility] DATE CREATED AUTHOR AUTHOR'S ORGANIZ ATION 08/13/2023 [facility] Goals (unrecognized section and content) Goals may be documented in a n alternate sectionGoals may be documented in an alternate sectionNo InformationNo Information Care Teams (unrecognized sec tion and content) Team Status: Inactive Member Role Status Dates Tess Saxena DO Attending Provider Active Neon Light Installer Relationship Specialty Start Date End Date Generic Provider, No Assigned [place], [place] [address] 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 This clinical summary was aggregated from multiple sources. Caution should be exercised in using it in the provision of clinical care. This summary normalizes information from multiple sources, and as a consequence, information in this document may materially change the coding, format and clinical context of patient data. In addition, data may be omitted in some cases. CLINICAL DECISIONS SHOULD BE BASED ON THE PRIMARY CLINICAL RECORDS. [facility] [employer] [facility]. provides no warranty or guarantee of the accuracy or completeness of information in this document.
[2023-08-18 07:14] VITALS: BP 149/86; PULSE 97; TEMP 36.2; O2SAT 98
[2023-08-18] MEDS: BUPIVACAINE HCL 0.25% PF 25 MG/10 ML VIAL INJ (07:53)
[2023-08-18] MEDS: LIDOCAINE HCL 2% PF 100 MG/5 ML VIAL INJ (07:54)
[2023-08-18] MEDS: IOHEXOL 240 MG/ML - 10 ML VIAL INJ (07:54)
[2023-08-18] MEDS: TRIAMCINOLONE ACETONIDE 40 MG/ML VIAL INJ (07:54)
--- NOTE | 2023-08-18 07:54 | W.PM.PROCNOT ---
Date of procedure: 08/18/23 Pre-op diagnosis: Sacroiliitis, right Post-op diagnosis: same as pre-op Procedure: Procedure: Right sacroiliac joint injection Medications: Bupivacaine 0.25% 1cc, kenalog 40mg After informed consent was obtained, the patient was brought to the medical procedure unit and placed in the prone position, when a timeout was completed verifying correct patient, procedure, site, positioning, implant, and/or special equipment.? The skin overlying the area was prepped and draped in standard sterile fashion using alcohol.? A 25-gauge needle was inserted towards the right sacroiliac joint under direct fluoroscopic imaging.? Needle tip was advanced until the joint was encountered.? We instilled a total of 3 mL of solution.? Postoperatively needles were removed.? The patient tolerated the procedure well without complication.? The patient reported reduction in pain symptoms postoperatively. Anesthesia: Local Surgeon: Miladis Rodriguez Pathology: none sent Condition: stable Disposition: no change
[2023-08-18 07:55] VITALS: BP 131/74; PULSE 86; PULSE 90; O2SAT 96
== END 2023-08-18 07:59 | disposition home or self-care (01) ==
PROVIDERS: PCP Internal Medicine; Visit Provider Anesthesiology
DX: M46.1 Sacroiliitis, not elsewhere classified (principal)
CPT/HCPCS: 27096; Q9966

== ENCOUNTER 2023-08-19 13:36 | Outpatient (RCR) | payer BC, SELFPAY | END 2023-09-05 16:20 | disposition home or self-care (01) | LOC: PT 13:36 | PROVIDERS: PCP Internal Medicine | DX: M43.17 Spondylolisthesis, lumbosacral region (principal); R26.89 Other abnormalities of gait and mobility; R26.9 Unspecified abnormalities of gait and mobility; R29.3 Abnormal posture | CPT/HCPCS: 97110; 97161 ==

== ENCOUNTER 2023-08-28 12:47 | Outpatient (OUT) | payer BC, SELFPAY ==
--- NOTE | 2023-08-28 13:37 | PM.CN ---
Consult Note: HPI Data of Consult Patient: known to practice within the last 3 years Requesting Physician: Tammie Andrews NP Primary Care Provider: Aquiles Francisco, DO Consult Narrative Reason for consult: establish chronic low back pain with radiculopathy Narrative: Francoise Calvo a pleasant 43 year old female presents for evaluation and management of chronic low back pain with radiculopathy. Pain significantly increased 3 months ago in low back with right sided sciatica. Patient has failed to benefit from chiropractor and HEP greater than 6 weeks. Recent MRI and xray below, consistent with stenosis, degenerative changes, and lumbar instability. patient reports numbness tingling weakness radiating into right foot, denies loss of bowel or bladder. Pain today 3-4/10 aching burning increasing to 9/10. Pain increased with twisting, pushing, pulling, lifting, bending, activity, decreased with lying on her side and ice. Patient finds mild benefit to motrin, zoloft, zanaflex. Is currently and not interested in medication management. Patient has a hx of SIJ dysfunction requiring manual manipulation from chiropractor, but has failed to benefit. Patient was evaluated by Dr Palacios who recommended a lumbar decompression and fusion, however patient would like to avoid surgical intervention at this time. Patient has another consult in August with orthospine Dr Mulligan. Recently underwent bilateral L5-S1 TFESI with moderate improvement for one week, right sij injection with no immediate or ongoing improvement. cc:: CC: Tammie Andrews NP Review of Systems ROS Status of ROS 10 or more systems reviewed and unremarkable except as noted in history and below [facility] Medical History (Updated 07/30/23 @ 13:15 by Leyla Willingham) Rupture of left Achilles tendon ?S86.012A - Strain of left Achilles tendon, initial encounter (ICD-10) History of hypothyroidism ?Z86.39 - Personal history of other endocrine, nutritional and metabolic disease (ICD-10) Surgical History (Updated 07/30/23 @ 13:15 by Leyla Willingham) History of laparoscopic cholecystectomy ?Z90.49 - Acquired absence of other specified parts of digestive tract (ICD-10) Meds Home Medications and Allergies Home Medications ?Medication ?Instructions ?Recorded ?Confirmed ?Type levothyroxine 100 mcg tablet 100 mcg PO DAILY 07/30/23 08/18/23 History (Euthyrox) omeprazole 20 mg capsule,delayed 20 mg PO DAILY 07/30/23 08/18/23 History release sertraline 100 mg tablet (Zoloft) 100 mg PO DAILY 07/30/23 08/18/23 History tizanidine 4 mg tablet (Zanaflex) 4 mg PO BID 07/30/23 08/18/23 History ibuprofen 800 mg tablet (IBU) 800 mg PO TID-QID PRN pain 08/04/23 08/18/23 History Allergies Allergy/AdvReac Type Severity Reaction Status Date / Time No Known Drug Allergies Allergy Verified 08/18/23 07:20 Exam Constitutional Documenting provider has reviewed patient's vital signs: yes Common normals: no apparent distress, oriented x3, healthy appearing, alert and well nourished General appearance: cooperative HENMT Common normals: normocephalic, hearing grossly normal bilaterally and moist oral mucous membranes Head and scalp: normocephalic Eye Common normals: PERRL Pupil: PERRL Neck & C-Spine Common normals: full ROM General: normal visual inspection Chest Common normals: inspection of chest normal Respiratory Common normals: normal respiratory effort, no retractions and no use of accessory muscles Back & Pelvis Lumbar spine/lower back: pain with ROM and straight leg raise positive right Sacroiliac joints: SI joint(s) abnormal (right +kayla fadir thigh thrust ganeslens ) SI joint details: tender to palpation, pain elicited by compression of iliac crest maneuver and pain elicited by passive hyperextension of lower extremity Other: strength 4/5 in RLE sensation decreased in right L5/S1 dermatomal pattern Extremity Common normals: normal to inspection and full ROM Neuro Common normals: oriented x3, CN's II-XII intact bilaterally, moves all extremities, no focal motor deficits, no sensory deficits noted and deep tendon reflexes 2+ bilaterally Sensorium/orientation: alert Gait (neuro): antalgic Motor exam: strength 5/5 throughout and no movement abnormalities noted Psych Common normals: mental status grossly normal, thought process normal, cooperative, affect normal, speech normal and activity/motor behavior normal Speech: normal speech Thought process: normal thought process Results Additional Findings Additional findings: If on a controlled substance or opioids, I have checked an [place] report on this patient and there are no aberrancies noted in the prescribing history.??If on a controlled substance or opioid a drug screen was completed and reviewed within the last year, and if there has not been a drug screen completed we ordered one today to monitor higher risk, state monitored pain medication use. As part of providing excellent, safe, comprehensive care, the following was completed at our patient's visit: 1. A medication reconciliation and review to ensure accurate knowledge of current/active medications, including asking our patients to inform us about any [id number] medications or herbal remedies/nutritional supplements/alternative remedies. 2. A review to specifically ensure our patients have had annual screening for screening for depression, screening for tobacco use, and screening for unhealthy alcohol use. For concerning screenings had a discussion with the patient, provided patient education, and recommended follow-up with primary care provider when appropriate. If patient noted with a risk of falling, they received education on strength, gait, and balance training to prevent future risk of falling. Assessment and Plan Assessment and Plan (1) Lumbar stenosis with neurogenic claudication: (2) Lumbar spine instability: (3) Lumbar degenerative disc disease: (4) Chronic low back pain with sciatica: Plan The patient has had over 3 months of moderate to severe low back and right leg pain with functional impairment and inadequate response to conservative care including NSAIDS (unless there are contraindication such as concurrent blood thinners), multiple oral or topical pain medications, and home exercise program/physical therapy.? Patient has completed >6 weeks of guided home exercise program and/or formal physical therapy program without relief of their symptoms.? I have reviewed the imaging of the lumbar spine and no red flags were identified.? We discussed the risks and benefits of the procedure with the patient, and we are NOT planning on using sedation as outlined in the guidelines from Medicare unless there is a documented reason that sedation would be strongly recommended.?? The procedure will be completed with fluoroscopic guidance.? right L4-5 L5-S1 TFESI under fluoroscopy with steroid rotation right SIJ injection under fluoroscopy with steroid rotation continue HEP as tolerated defer UDS continue f/u with NS as planned f/u 2 weeks after completion of injection therapy
== END 2023-08-28 12:48 | disposition home or self-care (01) ==
LOC: PM 12:47
PROVIDERS: PCP Internal Medicine; Visit Provider Nurse Practitioner
DX: M48.062 Spinal stenosis, lumbar region with neurogenic claudication (principal); M53.2X7 Spinal instabilities, lumbosacral region; M51.36 Other intervertebral disc degeneration, lumbar region; M54.50 Low back pain, unspecified
CPT/HCPCS: G0463

== ENCOUNTER 2023-09-08 08:20 | Day surgery (SDC) | payer BC, SELFPAY ==
[2023-09-08 08:25] VITALS: BP 122/86; PULSE 71; TEMP 36.3; O2SAT 98
[2023-09-08 09:00] VITALS: BP 146/85; PULSE 72; O2SAT 95
[2023-09-08] MEDS: 0.9 % SODIUM CHLORIDE 10 ML SYRINGE - SALINE FLUSH INJ (09:01)
[2023-09-08] MEDS: BUPIVACAINE HCL 0.25% PF 25 MG/10 ML VIAL INJ (09:02)
[2023-09-08] MEDS: METHYLPREDNISOLONE ACETATE 80 MG/ML VIAL INJ (09:02)
[2023-09-08] MEDS: IOHEXOL 240 MG/ML - 10 ML VIAL INJ (09:03)
[2023-09-08] MEDS: LIDOCAINE HCL 2% PF 100 MG/5 ML VIAL INJ (09:03)
--- NOTE | 2023-09-08 09:04 | P.ON_ITS ---
Date of procedure: 09/08/23 Pre-op diagnosis: Pain due to lumbar stenosis with neurogenic claudication Post-op diagnosis: same as pre-op Procedure: Procedure: Right L4-5, L5-S1 transforaminal epidural steroid injection Medications: Bupivacaine 0.25% 2cc, lidocaine 2% 1cc, kenalog 80mg The patient was seen and examined in the preoperative holding area.? Informed consent was obtained and placed on the chart.? Patient was brought to the medical procedure unit and placed in the prone position where a timeout was completed verifying the correct patient, procedure site, position, and planned special equipment using sterile aseptic technique.? Under direct fluoroscopic visualization a 25-gauge Quincke tipped spinal needle was advanced to the designated neural foramen where contrast dye was injected to show adequate spread.? The needle was inserted at level right L4-5. There was no evidence of vascular or adverse uptake.? Epidural spread was appreciated.? The above- mentioned injectate was then placed in a 1.5 mL aliquot preceded by negative aspiration.? The needle was removed. The needle was inserted and the procedure repeated at level right L5-S1.? The surgery site was covered.? Patient was taken to the postprocedural recovery area and monitored for an appropriate length of time before found suitable for discharge in the accompaniment of a responsible adult. Anesthesia: Local Surgeon: Miladis Rodriguez Pathology: none sent Condition: stable Disposition: no change
[2023-09-08 09:05] VITALS: BP 135/68; PULSE 66; O2SAT 94
== END 2023-09-08 09:18 | disposition home or self-care (01) ==
LOC: SURGOUT 08:20
PROVIDERS: PCP Internal Medicine; Visit Provider Anesthesiology
DX: M48.062 Spinal stenosis, lumbar region with neurogenic claudication (principal)
CPT/HCPCS: 64483; 64484; 84703; J1010; J1100; Q9966

== ENCOUNTER 2023-09-18 09:48 | Outpatient (OUT) | payer BC, SELFPAY ==
--- NOTE | 2023-09-18 09:56 | P.CN_ITS ---
Consult Note: HPI Data of Consult Patient: known to practice within the last 3 years Requesting Physician: Tammie Andrews NP Primary Care Provider: Aquiles Francisco, DO Consult Narrative Reason for consult: establish chronic low back pain with radiculopathy Narrative: Francoise gentile pleasant 43 year old female presents for evaluation and man agement of chronic low back pain with radiculopathy. Pain significantly increased 3 months ago in low back with right sided sciatica. Patient has failed to benefit from chiropractor and HEP greater than 6 weeks. Recent MRI and xray below, consistent with stenosis, degenerative changes, and lumbar instability. patient reports numbness tingling weakness radiating into right foot, denies loss of bowel or bladder. Pain today 4/10 aching burning increasing to 9/10. Pain increased with twisting, pushing, pulling, lifting, bending, activity, decreased with lying on her side and ice. Patient finds mild benefit to motrin, zoloft, zanaflex. Is currently and not interested in medication management. Patient has a hx of SIJ dysfunction requiring manual manipulation from chiropractor, but has failed to benefit. Patient was evaluated by Dr Palacios who recommended a lumbar decompression and fusion, however patient would like to avoid surgical intervention at this time. Patient has another consult in August with orthospine Dr Mulligan. Recently underwent right L4-5 L5-S1 TFESI with no improvement. cc:: CC: Tammie Andrews NP Review of Systems ROS Status of ROS 10 or more systems reviewed and unremark able except as noted in history and below Musculoskeletal Reports: back pain and joint pain PFSH PFSH Medical History Rupture of left Achilles tendon ?S86.012A - Strain of left Achilles tendon, initial encounter (ICD-10) History of hypothyroidism ?Z86.39 - Personal history of other endocrine, nutritional and metabolic disease (ICD-10) Surgical History History of laparoscopic cholecystectomy ?Z90.49 - Acquired absence of other specified parts of digestive tract (ICD- 10) Meds Home Medications and Allergies Home Medications ?Medication ?Instructions ?Recorded ?Confirmed ?Type levothyroxine 100 mcg tablet 100 mcg PO DAILY 07/30/23 09/08/23 History (Euthyrox) omeprazole 20 mg capsule,delayed 20 mg PO DAILY 07/30/23 09/08/23 History release sertraline 100 mg tablet (Zoloft) 100 mg PO DAILY 07/30/23 09/08/23 History tizanidine 4 mg tablet (Zanaflex) 4 mg PO BID 07/30/23 09/08/23 History ibuprofen 800 mg tablet (IBU) 800 mg PO TID-QID PRN pain 08/04/23 09/08/23 History Allergies Allergy/AdvReac Type Severity Reaction Status Date / Time No Known Drug Allergies Allergy Verified 09/08/23 08:30 Exam Constitutional Documenting provider has reviewed patient's vital signs: yes Common normals: no apparent distress, oriented x3, healthy appearing, alert and well nourished General appearance: cooperative HENMT Common normals: normocephalic, hearing grossly normal bilaterally and moist oral mucous membranes Head and scalp: normocephalic Eye Common normals: PERRL Pupil: PERRL Neck & C-Spine Common normals: full ROM General: normal visual inspection Chest Common normals: inspection of chest normal Respiratory Common normals: normal respiratory effort, no retractions and no use of accessory muscles Back & Pelvis Lumbar spine/lower back: ROM limited, pain with ROM and straight leg raise positive right Sacroiliac joints: SI joint(s) abnormal (right +kayla fadir thigh thrust ganeslens ) SI joint details: tender to palpation, pain elicited by compression of iliac crest maneuver and pain elicited by passive hyperextension of lower extremity Other: strength 4/5 in RLE sensation decreased in right L5/S1 dermatomal pattern Extremity Common normals: normal to inspection and full ROM Neuro Common normals: oriented x3, CN's II-XII intact bilaterally, moves all extremities, no focal motor deficits, no sensory deficits noted and deep tendon reflexes 2+ bilaterally Sensorium/orientation: alert Gait (neuro): antalgic Motor exam: strength 5/5 throughout and no movement abnormalities noted Psych Common normals: mental status grossly normal, thought process normal, cooperative, affect normal, speech normal and activity/motor behavior normal Speech: normal speech Thought process: normal thought process Results Additional Findings Additional findings: If on a controlled substance or opioids, I have checked an [place] report on this patient and there are no aberrancies noted in the prescribing history.??If on a controlled substance or opioid a drug screen was completed and reviewed within the last year, and if there has not been a drug screen completed we ordered one today to monitor higher risk, state monitored pain medication use. As part of providing excellent, safe, comprehensive care, the following was completed at our patient's visit: 1. A medication reconciliation and review to ensure accurate knowledge of current/active medications, including asking our patients to inform us about any [id number] medications or herbal remedies/nutritional supplements/alternative remedies. 2. A review to specifically ensure our patients have had annual screening for screening for depression, screening for tobacco use, and screening for unhealthy alcohol use. For concerning screenings had a discussion with the patient, provided patient education, and recommended follow-up with primary care provider when appropriate. If patient noted with a risk of falling, they received education on strength, gait, and balance training to prevent future risk of falling. Assessment and Plan Assessment and Plan (1) Lumbar stenosis with neurogenic claudication: (2) Lumbar spine instability: (3) Lumbar degenerative disc disease: (4) Chronic low back pain with sciatica: Plan patient weaning off of , discussed starting gabapentin 100mg HS. declining at this time discussed increasing tizanidine to 6-8mg BID PRN, declining at this time continue HEP as tolerated defer UDS continue f/u with NS as planned can call to f/u
== END 2023-09-18 09:49 | disposition home or self-care (01) ==
LOC: PM 09:48
PROVIDERS: PCP Internal Medicine; Visit Provider Nurse Practitioner
DX: M48.062 Spinal stenosis, lumbar region with neurogenic claudication (principal); M53.2X6 Spinal instabilities, lumbar region; M51.36 Other intervertebral disc degeneration, lumbar region; M54.40 Lumbago with sciatica, unspecified side
CPT/HCPCS: G0463

== ENCOUNTER 2023-11-26 09:55 | Outpatient (OUT) | payer BC, SELFPAY ==
[2023-11-26 10:08] LABS: Basophils Absolute Auto 0.1 10^3/uL (0.0-0.1); Basophils Percent Auto 0.8 % (0.2-2.0); Eosinophils Absolute Auto 0.2 10^3/uL (0.0-0.7); Eosinophils Percent Auto 2.4 % (0.9-7.0); Hematocrit 40.5 % (36.0-48.0); Hemoglobin 13.6 g/dL (12.0-16.0); Immature Granulocytes Abs Auto 0.02 10^3/uL (0.00-0.03); Immature Granulocytes Pct Auto 0.2 % (0.0-0.5); Lymphocytes Absolute Auto 1.6 10^3/uL (1.2-3.8); Mean Corpuscular HGB Conc 33.6 g/dL (29.9-35.2); Mean Corpuscular Hemoglobin 30.6 pg (26.7-34.0); Mean Corpuscular Volume 91.2 fL (81.0-99.0); Mean Platelet Volume 10.3 fL (9.5-13.5); Monocytes Absolute Auto 0.4 10^3/uL (0.3-0.8); Monocytes Percent Auto 5.2 % (1.7-12.0); Neutrophils Percent Auto 72.4 % (43.0-75.0); Platelet Count 248 10^3/uL (150-450); Red Blood Count 4.44 10^6/uL (4.20-5.40); Red Cell Distribution Width 12.7 % (11.0-15.0); White Blood Count 8.3 10^3/uL (4.0-11.0)
--- OUTSIDE RECORDS SUMMARY | 2023-11-26 10:11 | XMS_ITS | CCD ---
Author Organization [facility] Care Team Providers Care Leaf Blender Name Role Phone Subhash, Christopher S Unavailable [...] vailable Family Physician Unavailable Unavailable Deirdre vailable jayla-Shanita Godineze Unavailable Unavailable Kountz, Mee Unavailable Unavailable Weinerman, Clotilde Unavailable Unavailable Isaac, Kelsey Unavailable Unavailable Ball, Aqulies E Unavailable Unavailable Godinez, Luana Unavailable Unavailable Weinerman, Clotilde Unavailable Unavailable Isaac, Kelsey Unavailable Unavailable IVF NURSE RAYNA WAGNER Unavailable Unavaila Jamshid Peralta Unavailable Unavailable Annie Chou Unavailable Unavailable Anika Freeman Unavailable Unavailable Ball, Aquiles E Unavailable Unavailable Unavailable DR AQUILES ESCOBEDO Primary Care Unavailable DR AQUILES ESCOBEDO Consulting Unavailable FANNY, DR TANNER Attending Unavailable DR AQUILES ESCOBEDO Admitting Unavailable RINELIE, TESS Consulting Unavailable DR AQUILES ESCOBEDO Primary Care Unavailable RINKES, TESS Attending Unavailable RINKES, TESS Admitting Unavailable DR AQUILES ESCOBEDO Primary Care Unavailable RINKES, TESS Consulting Unavailable RINKES, TESS Attending Unavailable RINKES, TESS Admitting Unavailable DR AQUILES ESCOBEDO Primary Care Unavailable RINKES, TESS Consulting Unavailable RINKES, TESS Attending Unavailable RINKES, TESS Admitting Unavailable RINELIE, TESS Admitting Unavailable DR AQUILES ESCOBEDO Primary Care Unavailable RINKES, TESS Consulting Unavailable RINKES, TESS Attending Unavailable Rinkes, DO Tess Attending Provider [phone] NO FAMILY, PHYSICIAN Primary Care Unavailable Rinkes, Tess Admitting Unavailable Rinkes, Tess Attending Unavailable Aquiles Escobedo Primary Care Unavailable Eulalia, Rocio Admitting Unavailable Eulalia, Rocio Attending Unavailable Fanny, Aquiles Primary Care Unavailable Rinkes, Tess Admitting Unavailable Rinkes, Tess Attending Unavailable Fanny, Aquiles Unavailable Isaac, Dr. Kelsey Mesa Attending Unavailable Isaac, Dr. Kelsey Mesa Referring Unavailable Ball, Dr. Aquiles Fontanez [facility] Jeanne Gray, Dr. Kelsey Mesa Attending Unavailable Isaac, Dr. Kelsey Mesa Referring Unavailable Fanny, Dr. Aquiles Fontanez [facility] Jeanne Gray, Dr. Kelsey Mesa Attending Unavailable Isaac, Dr. Kelsey Mesa Referring Unavailable Fanny, Dr. Aquiles Fontanez [facility] Jeanne Gray, Dr. Kelsey Mesa Attending Unavailable Isaac, Dr. Kelsey Mesa Referring Unavailable Fanny, Dr. Aquiles Fontanez [facility] Jeanne Gray, Dr. Kelsey Mesa Attending Unavailable Isaac, Dr. Kelsey Mesa Referring Unavailable Fanny, Dr. Aquiles Fontanez [facility] Jeanne Gray, Dr. Kelsey Mesa Attending Unavailable Isaac, Dr. Kelsey Mesa Referring Unavailable Ball, Dr. Aquiles Fontanez [facility] Jeanne Gray, Dr. Kelsey Mesa Attending Unavailable Isaac, Dr. Kelsey Mesa Referring Unavailable Fanny, Dr. Aquiles Fontanez [facility] Jeanne Gray, Dr. Kelsey Mesa Attending Unavailable Isaac, Dr. Kelsey Mesa Referring Unavailable Fanny, Dr. Aquiles Fontanez [facility] Jeanne Gray, Dr. Kelsey Mesa Attending Unavailable Isaac, Dr. Kelsey Mesa Referring Unavailable Fanny, Dr. Aquiles Fontanez [facility] Jeanne Gray, Dr. Kelsey Mesa Attending Unavailable Isaac, Dr. Kelsey Mesa Referring Unavailable Fanny, Dr. Aquiles Fontanez [facility] KELSEY Price Attending Unavailable KELSEY GRAY Referring Unavailable Generic Provider MD, No Assigned Pcp Primary Car e Provider Unavailable Michael ODELL, Miladis Acosta Attending Unavailable Michael ODELL, Miladis Acosta Attending Unavailable Miladis Rodriguez MD Attending Unavailable ISAAC, KELSEY L Attending Unavailable ISAAC, KELSEY L Referring Unavailable ISAAC, KELSEY L Attending Unavailable GENERIC PROVIDER, NO ASSIGNED PCP Primary Care Unavailable ISAAC KELSEY L Attending Unavailable GENERIC PROVIDER, NO ASSIGNED PCP Primary Care Unavailable ISAAC, KELSEY L Attending Unavailable GENERIC PROVIDER, NO ASSIGNED PCP Primary Care Unavailable CARLTINO Bonita Attending Unavailable GENERIC PROVIDER, NO ASSIGNED PCP Primary Care Unavailable KELSEY GRAY L Attending Unavailable GENERIC PROVIDER, NO ASSIGNED PCP Primary Care Unavailable KELSEY GRAY L Attending Unavailable ISAAC, KELSEY L Referring Unavailable GENERIC PROVIDER, NO ASSIGNED PCP Primary Care Unavailable Allergies Allergy Classification Reported Allergen(s) Allergy Type Date of Onset Reaction(s) Facility (2 sources) Amoxicillin / Clavulanate Drug Allergy Unknown [facility] Other (2 sources) Hydroxyquinolone *CHEMICALS* Propensity to adverse reactions Comment:Quinol ones [facility] Other (2 sources) ALLERGIES NOT ON FILE; Translations: [ALLERGIES NOT ON FILE] Propensity to adverse reactions (disorder) [facility] 3 Repository Medications Current Medications Medication Drug Class(es) Dates Sig (Normalized) Sig (Original) acetaminophen 325 mg / HYDROcodone bitartrate 5 mg oral tablet (2 sources) Opioid Agonist Start: 07-23-2017 take 1 tablet by mouth every four hours Hydrocodone-Acet aminophen ([place]) 5-325 mg tablet Active 1 TAB PO [...] Drug Class(es) Dates Sig (Normalized) Sig (Original) [id number] actuat albuterol 0.09 mg/actuat metered dose [...] for 5 day(s) May, Not-Taking/PRN BD Disp [place] 18G X 1-1/2 (1 source) Start: 08-19-2019 BD Disp [place] 18G X 1-1/2 Use to draw up Progesterone/Oil Quantity: 30 Refills: 3 Timo ODELL, Clotilde Start : 19-Aug-2019 Active benzonatate 100 mg [...] Start: 08-04-2018 take 3 tablets by mo [facility] once daily Estradiol 2 MG Oral Tablet [...] Start: 05-20-2019 take 2 tablets by mo [facility] once daily Letrozole 2.5 MG Oral Tablet [...] Start: 12-28-2021 take 1 tablet by [facility] th once [...] Start: 08-31-2021 take 1 tablet by [facility] th once [...] 1 TABLET Bedtime Quantity: 4 Refills: 0 Clotidle Espinosa MD Start : 04-Aug-2018 Active norethindrone [...] with diseases classified elsewhere] Chronic Mood disorders (11 sources) Mild recurrent major depression; Translations: [Major [...] pain] Resolved: 04-18-2016 Episodic Unclassified (1 source) 50166/N20.1 Onset: 07-30-2017 Unclassified (20 sources) Patient encounter [...] Basophils (Bld) [#/Vol] 0.1 10*3/uL Normal 0.0-0.2 [facility] Comment on above: Order Comment: Comme nt Draw at 630 am Result Comment: PERF ORMED BY: [place] [address] PATHOLOGIST LOGISTICS TEAM LEAD RENETTA CASE M.D. Performed By: #### C BC #### [facility] [address] [place] [address] Basophils/100 WBC (Bld) 0.6 % Normal . [facility] Comment on above: Order Comment: Comme nt Draw at 630 am Performed By: #### C BC #### [facility] [address] [place] [address] Eosinophils (Bld) [#/Vol] 0.1 10*3/uL Normal 0.0-0.45 [facility] Comment on above: Order Comment: Comme nt Draw at 630 am Performed By: #### C BC #### [place] [address] [place] Eosinophils/100 WBC (Bld) 1.1 % Normal . [facility] Comment on above: Order Comment: Comme nt Draw at 630 am Performed By: #### C BC #### [facility] [address] [place] [address] Erythrocyte distribution width (RBC) [Ratio] 14.4 % Normal 11.9-15.3 [facility] Comment on above: Order Comment: Comme nt Draw at 630 am Performed By: #### C BC #### [address] Hematocrit (Bld) [Volume fraction] 32.8 % Low 34.0-46.4 [facility] Comment on above: Order Comment: Comme nt Draw at 630 am Performed By: #### C BC #### [address] Hemoglobin (Bld) [Mass/Vol] 10.9 g/dL Low 11.8-15.4 [facility] Comment on above: Order Comment: Comme nt Draw at 630 am Performed By: #### C BC #### [address] Lymphocytes (Bld) [#/Vol] 1.4 10*3/uL Normal 1.00-4.8 [facility] Comment on above: Order Comment: Comme nt Draw at 630 am Performed By: #### C BC #### [address] Lymphocytes/100 WBC (Bld) 14.2 % Normal . [facility] Comment on above: Order Comment: Comme nt Draw at 630 am Performed By: #### C BC #### [address] MCH (RBC) [Entitic mass] 29.6 pg Normal 24.7-34.3 [facility] Comment on above: Order Comment: Comme nt Draw at 630 am Performed By: #### C BC #### [address] MCV (RBC) [Entitic vol] 88.8 fL Normal 80-100 [facility] Comment on above: Order Comment: Comme nt Draw at 630 am Performed By: #### C BC #### [address] Mean Corpuscular HGB Conc 33.4 g/dL Normal 32.0-35.0 [facility] Comment on above: Order Comment: Comme nt Draw at 630 am Performed By: #### C BC #### [facility] [address] [place] [address] [place] Monocytes (Bld) [#/Vol] 0.5 10*3/uL Normal 0.0-0.8 [facility] Comment on above: Order Comment: Comme nt Draw at 630 am Performed By: #### C BC #### [facility] [address] [place] [address] Monocytes/100 WBC (Bld) 5.3 % Normal . [facility] Comment on above: Order Comment: Comme nt Draw at 630 am Performed By: #### C BC #### [facility] [address] [place] [address] Neutrophils (Bld) [#/Vol] 7.7 10*3/uL Normal 1.8-7.7 [facility] Comment on above: Order Comment: Comme nt Draw at 630 am Performed By: #### C BC #### [address] Neutrophils/100 WBC (Bld) 78.8 % Normal . [facility] Comment on above: Order Comment: Comme nt Draw at 630 am Performed By: #### C BC #### [address] NRBC% 0.1 /100{WBC} Normal 0-0.5 [facility] Comment on above: Order Comment: Comme nt Draw at 630 am Performed By: #### C BC #### [address] Platelet mean volume (Bld) [Entitic vol] 11.6 fL High 6.3-10.7 [facility] Comment on above: Order Comment: Comme nt Draw at 630 am Performed By: #### C BC #### [place] [address] [place] Platelets (Bld) [#/Vol] 149 10*3/uL Low 150-450 [facility] Comment on above: Order Comment: Comme nt Draw at 630 am Performed By: #### C BC #### [address] RBC (Bld) [#/Vol] 3.69 10*6/uL Normal 3.60-5.00 [facility] Comment on above: Order Comment: Comme nt Draw at 630 am Performed By: #### C BC #### [address] WBC (Bld) [#/Vol] 9.7 10*3/uL Normal 3.8-11.6 [facility] Comment on above: Order Comment: Comme nt Draw at 630 am Performed By: #### C BC #### [address] ABO/Rh Retypeon 08-19-2022 ABO/RH Recheck Result Positive Normal [facility] Comment on above: Result Comment: PERF ORMED BY: [place] [address] PATHOLOGIST LOGISTICS TEAM LEAD RENETTA CASE M.D. Complete Blood Count Auto Di ffon 08-19-2022 Basophils (Bld) [#/Vol] 0.1 10*3/uL Normal 0.0-0.2 [facility] Comment on above: Result Comment: PERF ORMED BY: [place] [address] PATHOLOGIST LOGISTICS TEAM LEAD RENETTA CASE M.D. Performed By: #### C BC #### [address] #### RPR W RFX #### [facility] , Basophils/100 WBC (Bld) 0.8 % Normal . [facility] Comment on above: Performed By: #### C BC #### [address] #### RPR W RFX #### [facility] , Eosinophils (Bld) [#/Vol] 0.1 10*3/uL Normal 0.0-0.45 [facility] Comment on above: Performed By: #### C BC #### [facility] [address] [place] [address] #### RPR W RFX #### [facility] , Eosinophils/100 WBC (Bld) 1.4 % Normal . [facility] Comment on above: Performed By: #### C BC #### [facility] [address] [place] [address] [place] #### RPR W RFX #### [facility] , Erythrocyte distribution width (RBC) [Ratio] 14.7 % Normal 11.9-15.3 [facility] Comment on above: Performed By: #### C BC #### [facility] [address] [place] [address] #### RPR W RFX #### [facility] , Hematocrit (Bld) [Volume fraction] 33.3 % Low 34.0-46.4 [facility] Comment on above: Performed By: #### C BC #### [facility] [address] [place] [address] #### RPR W RFX #### [facility] , Hemoglobin (Bld) [Mass/Vol] 11.2 g/dL Low 11.8-15.4 [facility] Comment on above: Performed By: #### C BC #### [facility] [address] [place] [address] #### RPR W RFX #### [facility] , Lymphocytes (Bld) [#/Vol] 1.6 10*3/uL Normal 1.00-4.8 [facility] Comment on above: Performed By: #### C BC #### [facility] [address] [place] [address] #### RPR W RFX #### [facility] , Lymphocytes/100 WBC (Bld) 16.0 % Normal . [facility] Comment on above: Performed By: #### C BC #### [facility] [address] [place] [address] #### RPR W RFX #### [facility] , MCH (RBC) [Entitic mass] 29.6 pg Normal 24.7-34.3 [facility] Comment on above: Performed By: #### C BC #### [facility] [address] [place] [address] #### RPR W RFX #### [facility] , MCV (RBC) [Entitic vol] 88.3 fL Normal 80-100 [facility] Comment on above: Performed By: #### C BC #### [address] #### RPR W RFX #### [facility] , Mean Corpuscular HGB Conc 33.5 g/dL Normal 32.0-35.0 [facility] Comment on above: Performed By: #### C BC #### [address] #### RPR W RFX #### [facility] , Monocytes (Bld) [#/Vol] 0.7 10*3/uL Normal 0.0-0.8 [facility] Comment on above: Performed By: #### C BC #### [facility] [address] [place] [address] #### RPR W RFX #### [facility] , Monocytes/100 WBC (Bld) 7.1 % Normal . [facility] Comment on above: Performed By: #### C BC #### [facility] [address] [place] [address] [place] #### RPR W RFX #### [facility] , Neutrophils (Bld) [#/Vol] 7.5 10*3/uL Normal 1.8-7.7 [facility] Comment on above: Performed By: #### C BC #### [facility] [address] [place] [address] #### RPR W RFX #### [facility] , Neutrophils/100 WBC (Bld) 74.7 % Normal . [facility] Comment on above: Performed By: #### C BC #### [facility] [address] [place] [address] [place] #### RPR W RFX #### [facility] , NRBC% 0.1 /100{WBC} Normal 0-0.5 [facility] Comment on above: Performed By: #### C BC #### [facility] [address] [place] [address] [place] #### RPR W RFX #### [facility] , Platelet mean volume (Bld) [Entitic vol] 11.5 fL High 6.3-10.7 [facility] Comment on above: Performed By: #### C BC #### [address] #### RPR W RFX #### [facility] , Platelets (Bld) [#/Vol] 171 10*3/uL Normal 150-450 [facility] Comment on above: Performed By: #### C BC #### [facility] [address] [place] [address] [place] #### RPR W RFX #### [facility] , RBC (Bld) [#/Vol] 3.77 10*6/uL Normal 3.60-5.00 [facility] Comment on above: Performed By: #### C BC #### [facility] [address] [place] [address] [place] #### RPR W RFX #### [facility] , WBC (Bld) [#/Vol] 10.0 10*3/uL Normal 3.8-11.6 [facility] Comment on above: Performed By: #### C BC #### [facility] [address] [place] [address] #### RPR W RFX #### [facility] , Dipstick and Microscopicon 0 08-19-2022 Appearance (U) Cloudy Critically abnormal Clear [facility] Comment on above: Order Comment: Name Collection Type:: Clean-Voided Midstream Performed By: #### O BUDS, ADDONUAPLUS #### [facility] [address] [place] [address] [place] Bacteria,Urine None Seen Normal None Seen [facility] Comment on above: Order Comment: Name Collection Type:: Clean-Voided Midstream Performed By: #### O BUDS, ADDONUAPLUS #### [address] Bilirubin,Urine 1+ High Negative [facility] Comment on above: Order Comment: Name Collection Type:: Clean-Voided Midstream Performed By: #### O BUDS, ADDONUAPLUS #### [address] Calcium Oxalate Crystals,Urine 2+ Normal [facility] Comment on above: Order Comment: Name Collection Type:: Clean-Voided Midstream Performed By: #### O BUDS, ADDONUAPLUS #### [address] Color (U) Dark Yellow Critically abnormal Yellow [facility] Comment on above: Order Comment: Name Collection Type:: Clean-Voided Midstream Performed By: #### O BUDS, ADDONUAPLUS #### [facility] [address] [place] [address] [place] Glucose Ql (U) Normal Normal Normal [facility] Comment on above: Order Comment: Name Collection Type:: Clean-Voided Midstream Performed By: #### O BUDS, ADDONUAPLUS #### [facility] [address] [place] [address] [place] Hyaline Casts,Urine 0-8 Normal 0-8 [facility] Comment on above: Order Comment: Name Collection Type:: Clean-Voided Midstream Result Comment: PERF ORMED BY: [place] [address] PATHOLOGIST LOGISTICS TEAM LEAD RENETTA CASE M.D. Performed By: #### O BUDS, ADDONUAPLUS #### [facility] [address] [place] [address] [place] Ketones Ql (U) Trace High Negative [facility] Comment on above: Order Comment: Name Collection Type:: Clean-Voided Midstream Performed By: #### O BUDS, ADDONUAPLUS #### [place] [address] [place] Leukocyte esterase Test strip Ql (U) 1+ High Negative [facility] Comment on above: Order Comment: Name Collection Type:: Clean-Voided Midstream Performed By: #### O BUDS, ADDONUAPLUS #### [place] [address] [place] Nitrite,Urine Negative Normal Negative [facility] Comment on above: Order Comment: Name Collection Type:: Clean-Voided Midstream Performed By: #### O BUDS, ADDONUAPLUS #### [facility] [address] [place] [address] [place] Occult Blood,Urine Negative Normal Negative [facility] Comment on above: Order Comment: Name Collection Type:: Clean-Voided Midstream Result Comment: PERF ORMED BY: [place] [address] PATHOLOGIST LOGISTICS TEAM LEAD RENETTA CASE M.D. Performed By: #### O BUDS, ADDONUAPLUS #### [facility] [address] [place] [address] [place] Othe Crystals,Urine None Seen Normal [facility] Comment on above: Order Comment: Name Collection Type:: Clean-Voided Midstream Performed By: #### O BUDS, ADDONUAPLUS #### [facility] [address] [place] [address] [place] pH (U) 6.5 [pH] Normal 5.0-9.0 [facility] Comment on above: Order Comment: Name Collection Type:: Clean-Voided Midstream Performed By: #### O BUDS, ADDONUAPLUS #### [address] Protein (U) [Mass/Vol] 30 mg/dL High Negative [facility] Comment on above: Order Comment: Name Collection Type:: Clean-Voided Midstream Performed By: #### O BUDS, ADDONUAPLUS #### [address] RBC,Urine None Seen Normal 0-4 [facility] Comment on above: Order Comment: Name Collection Type:: Clean-Voided Midstream Performed By: #### O BUDS, ADDONUAPLUS #### [address] Specificy Kathleen,Urine 1.037 High 1.001-1.030 [facility] Comment on above: Order Comment: Name Collection Type:: Clean-Voided Midstream Performed By: #### O BUDS, ADDONUAPLUS #### [address] Squamous Epithelial Cell,Urine 3-4 High 0-2 [facility] Comment on above: Order Comment: Name Collection Type:: Clean-Voided Midstream Performed By: #### O BUDS, ADDONUAPLUS #### [address] Urobilinogen,Urine Normal Normal Normal [facility] Comment on above: Order Comment: Name Collection Type:: Clean-Voided Midstream Performed By: #### O BUDS, ADDONUAPLUS #### [place] [address] [place] WBC,Urine 1-2 Normal 0-4 [facility] Comment on above: Order Comment: Name Collection Type:: Clean-Voided Midstream Performed By: #### O BUDS, ADDONUAPLUS #### [address] OB Urine Drug Screen (NO THC )on 08-19-2022 Amphetamine Screen,Urine Negative Normal Negative [facility] Comment on above: Performed By: #### O BUDS, ADDONUAPLUS #### [place] [address] [place] Barbiturate Screen,Urine Negative Normal Negative [facility] Comment on above: Performed By: #### O BUDS, ADDONUAPLUS #### [place] [address] [place] Benzodiazepines Screen,Urine Negative Normal Negative [facility] Comment on above: Performed By: #### O BUDS, ADDONUAPLUS #### [place] [address] [place] Cocaine Screen,Urine Negative Normal Negative [facility] Comment on above: Performed By: #### O BUDS, ADDONUAPLUS #### [address] Opiate Screen,Urine Negative Normal Negative [facility] Comment on above: Performed By: #### O BUDS, ADDONUAPLUS #### [address] Phencyclidine Screen, Urine Negative Normal Negative [facility] Comment on above: Result Comment: Thes e are unconfirmed results and should not be used for legal purposes. Drug Cut-Off Concentration: AMPH 1000 ng/mL GUILHERME 200 ng/mL SOM 200 ng/mL COCM 300 ng/mL OP 300 ng/mL PCP 25 ng/mL PERFORMED BY: [place] [address] PATHOLOGIST LOGISTICS TEAM LEAD RENETTA CASE M.D. Performed By: #### O BUDS, ADDONUAPLUS #### [address] RPR w/rfx to Quant TP Abson 08-19-2022 RPR, Rfx Quant RPR Non-Reactive Normal Non Reactive [facility] Comment on above: Result Comment: Perf ormed at: - [facility] [address] [id number] [employer] Applicator: Shad Velez PhD, Phone: [phone] PERFORMED BY: [place] [address] PATHOLOGIST LOGISTICS TEAM LEAD RENETTA CASE M.D. Performed By: #### C BC #### [facility] [address] [place] [address] #### RPR W RFX #### [facility] , Type and Screenon 08-19-2022 ABO and Rh group Nom (Bld) Blood group A Rh(D) positive Normal [facility] Comment on above: Result Comment: PERF ORMED BY: [place] [address] PATHOLOGIST LOGISTICS TEAM LEAD RENETTA CASE M.D. Strep B Cultureon 07-26-2022 Strep B Culture Reason for Exam 35 w eeks gestation of ; screening for stre Vaginal/Rectal Strep B Only Cult No Group B Beta Streptococcus Isolated 3 Days PERFORMED BY: [place] [address] PATHOLOGIST LOGISTICS TEAM LEAD RENETTA CASE M.D. [facility] Comment on above: Performed By: #### C USTB #### [facility] [address] [place], [place] [id number] [facility] FREE T4on 07-03-2022 Free T4 [Mass/Vol] 0.94 ng/dL Normal 0.76-1.46 [facility] Comment on above: Performed By: #### C BC #### [facility] [address] [place] [address] Dr. Jose Holley TSHon 07-03-2022 TSH 2.003 uIU/mL Normal 0.358-3.740 [facility] Comment on above: Performed By: #### T SH #### [facility] [address] [address] [address] Jose Holley FREE T4on 06-05-2022 Free T4 [Mass/Vol] 0.91 ng/dL Normal 0.76-1.46 [facility] Comment on above: Performed By: #### C BC #### [facility] [address] [place] [address] Dr. Jose Holley GLUCOSE - 1HRon 06-05-2022 Glucose [Mass/Vol] 106 mg/dL Normal 74-106 [facility] Comment on above: Performed By: #### G LU1HR #### [facility] [address] [place] [address] Dr. Jose Holley HEMOGLOBIN AND HEMATOCRITon 06-05-2022 Hematocrit (Bld) [Volume fraction] 35.9 % Critically low 36.0-48.[address] [facility] Comment on above: Performed By: #### C BC #### [facility] [address] [place] [address] Dr. Jose Holley Hemoglobin (Bld) [Mass/Vol] 12.1 g/dL Normal 12.0-16.[address] [facility] Comment on above: Performed By: #### C BC #### [facility] [address] [place] [address] Dr. Jose Holley TSHon 06-05-2022 TSH 2.520 uIU/mL Normal 0.358-3.740 [facility] Comment on above: Performed By: #### T SH #### [facility] [address] [place] [address] Dr. Jose Holley FREE T4on 04-10-2022 Free T4 [Mass/Vol] 1.08 ng/dL Normal 0.76-1.46 [facility] [facility] Comment on above: Performed By: #### C BC #### [facility] [address] [place] [address] Dr. Jose Holley TSHon 04-10-2022 TSH 2.371 uIU/mL Normal 0.358-3.740 [facility] Comment on above: Performed By: #### T SH #### [facility] [address] [place] [address] Dr. Jose Holley HEP B SURFACE ANTIGEN SCREEN on 02-05-2022 HBsAg Screen Negative Normal Negative [facility] Comment on above: Performed By: #### C BC #### [facility] [address] [place] [address] Dr. Jose Holley HIV 1 AND 2 WITH REFLEXon HIV Screen 4th Generation wRfx Non-Reactive Normal Non Reactive [facility] Comment on above: Result Comment: HIV Negative HIV-1/HIV-2 antibodies and HIV-1 p24 antigen were NOT detected. There is no laboratory evidence of HIV infection. Performed By: #### H IV12 #### [facility] [address] [place] [address] Dr. Jose Holley RPR QUANTon 02-05-2022 Rapid Plasma Reagin, Quant Non-Reactive Normal NonRea<1:[address] [facility] Comment on above: Result Comment: Plea se Note: This test does not meet current guidelines for screening and diagnosis of syphilis. This test is intended for following treatment response in patients being treated for syphilis infection. To screen for syphilis infection, a reflex cascade that includes both RPR and a treponema-specific assay should be utilized, such as Treponema pallidum (Syphilis) Screening [place] (344936) or Rapid Plasma Reagin (RPR) Test With Reflex to Quantitative RPR and Confirmatory Treponema pallidum Antibodies (005342). Performed By: #### C BC #### [facility] [address] [place] [address] Dr. Jose Holley RUBELLA AB IGGon 02-05-2022 Rubella Antibodies, IgG 25.80 index Normal Immune >0.[address] [facility] Comment on above: Result Comment: Non- immune <0.90 Equivocal 0.90 - 0.99 Immune >0.99 Performed By: #### R UBIGG #### [facility] [address] [place] [address] Dr. Jose Holley CBC AUTO DIFFon 02-04-2022 BASO # 0.1 103/ul Normal 0.0-0.1 [facility] Comment on above: Performed By: #### C BC #### [facility] [address] [place] [address] Dr. Jose Holley Basophils/100 WBC (Bld) 0.5 % Normal 0.2-2.0 [facility] Comment on above: Performed By: #### C BC #### [facility] [address] [place] [address] Dr. Jose Holley EO # 0.2 103/ul Normal 0.0-0.7 [facility] Comment on above: Performed By: #### C BC #### [facility] [address] [place] [address] Dr. Jose Holley Eosinophils/100 WBC (Bld) 2.1 % Normal 0.9-7.[address] [facility] Comment on above: Performed By: #### C BC #### [facility] [address] [place] [address] Dr. Jose Holley Erythrocyte distribution width (RBC) [Ratio] 12.6 % Normal 11.0-15.[address] [facility] Comment on above: Performed By: #### C BC #### [facility] [address] [place] [address] Dr. Jose Holley Hematocrit (Bld) [Volume fraction] 41.5 % Normal 36.0-48.[address] [facility] Comment on above: Performed By: #### C BC #### [facility] [address] [place] [address] Dr. Jose Holley Hemoglobin (Bld) [Mass/Vol] 14.0 g/dL Normal 12.0-16.[address] [facility] Comment on above: Performed By: #### C BC #### [facility] [address] [place] [address] Dr. Jose Holley IG # 0.08 10e3/ul Critically high 0.00-0.03 [facility] Comment on above: Performed By: #### C BC #### [facility] [address] [place] [address] Dr. Jose Holley IG % 0.7 % Critically high 0.0-0.5 [facility] Comment on above: Performed By: #### C BC #### [facility] [address] [place] [address] Dr. Jose Holley LYMPH # 2.0 103/ul Normal 1.2-3.[address] [facility] Comment on above: Performed By: #### C BC #### [facility] [address] [place] [address] Dr. Jose Holley Lymphocytes/100 WBC (Bld) 18.5 % Critically low 20.5-60.[address] [facility] Comment on above: Performed By: #### C BC #### [facility] [address] [place] [address] Dr. Jose Holley MANUAL DIFF REQ NO Normal [facility] Comment on above: Performed By: #### C BC #### [facility] [address] [place] [address] Dr. Jose Holley MCH (RBC) [Entitic mass] 31.3 pg Normal 26.7-34.[address] [facility] Comment on above: Performed By: #### C BC #### [facility] [address] [place] [address] Dr. Jose Holley MCHC (RBC) [Mass/Vol] 33.7 g/dL Normal 29.9-35.[address] [facility] Comment on above: Performed By: #### C BC #### [facility] [address] [place] [address] Dr. Jose Holley MCV (RBC) [Entitic vol] 92.8 fL Normal 81.0-99.[address] [facility] Comment on above: Performed By: #### C BC #### [facility] [address] [place] [address] Dr. Jose Holley MONO # 0.5 103/ul Normal 0.3-0.[address] [facility] Comment on above: Performed By: #### C BC #### [facility] [address] [place] [address] Dr. Jose Holley Monocytes/100 WBC (Bld) 4.7 % Normal 1.7-12.[address] [facility] Comment on above: Performed By: #### C BC #### [facility] [address] [place] [address] Dr. Jose Holley NEUT # 8.1 103/ul Critically high 1.4-6.5 [facility] Comment on above: Performed By: #### C BC #### [facility] [address] [place] [address] Dr. Jose Holley Neutrophils/100 WBC (Bld) 73.5 % Normal 43.0-75.0 [facility] Comment on above: Performed By: #### C BC #### [facility] [address] [place] [address] Dr. Jose Holley Platelet mean volume (Bld) [Entitic vol] 10.6 fL Normal 9.5-13.[address] [facility] Comment on above: Performed By: #### C BC #### [facility] [address] [address] [address] Jose Holley PLT 261 103/ul Normal 150-450 [facility] Comment on above: Performed By: #### C BC #### [facility] [address] [address] [address] Jose Holley RBC 4.47 106/ul Normal 4.20-5.[address] [facility] Comment on above: Performed By: #### C BC #### [facility] [address] [place] [address] Dr. Jose Holley WBC 11.0 103/ul Normal 4.0-11.0 [facility] Comment on above: Performed By: #### C BC #### [facility] [address] [place] [address] Dr. Jose Holley CULTURE URINEon 02-04-2022 CULTURE URINE Culture Observations : LIGHT GROWTH OF MIXED GENITAL LASHELL. NO POTENTIAL PATHOGENS SEEN. Normal [facility] Comment on above: Performed By: #### C BC #### [facility] [address] [place] [address] Dr. Jose Holley TYPE AND SCREENon 02-04-2022 TYPE AND SCREEN Negative Normal [facility] Comment on above: Performed By: #### C BC #### [facility] [address] [place] [address] Dr. Jose Holley No Panel Informationon 01-10 Please click on the link to view the study images Normal [id number]-[id number] man 310 IVF Work Phone: Normal [id number] 7th [place] Work Phone: HCG, Beta Quantitativeon [...] HCG measurement is performed using the [employer] Access Immunoassay which detects intact HCG and free beta HCG subunit. This test is not indicated for use as a tumor marker. HCG testing is performed using a different test methodology at [facility]. Direct result comparison should only be made within the same method. REF VALUESNON FEMALE <5MALES <5 Laboratory - Chemistry and C hemistry - challengeon 12-28-2021 TSH Qn Canceled MP-Kayaking Instructor s-Mary 2100 DO Work Phone: Comment on above: TSH testing is perfo rmed using different testing methodology at [facility] than at other [facility]. Direct result comparisons should only be made within the same method. TSH Qn 3.47 m[IU]/L See Below CO-[id number]-Kea man 310 IVF Work Phone: Comment on above: Reference Range: 0.4 4 - 3.98 TSH testing is performed using different testing methodology at [facility] than [facility] other [facility]. Direct result comparisons should only be made [...] All medical record entries made by the [employer] were at my direction and personally dictated [...] performed using a different test methodology at [facility] than other [facility]. Direct result comparison should only be made within the same method. REF VALUESNON FEMALE <5MALES <5 EXTRUSION DIE CORRECTOR - Procedure Visiton 0 12-11-2021 EXTRUSION DIE CORRECTOR - Procedure Visit Chief Complaint Embryo transfer [...] (M99.07) Spontaneous miscarriage (634.90) (O03.9) 9 wk [facility] 11/02/2018 Steroid long-term use (V58.65) Strain of [...] Progesterone, Serumon 2021 Progesterone [Mass/Vol] 26.6 ng/mL [id number] man 310 IVF Work Phone: Comment on above: Progesterone is perf ormed using the [employer] Access Immunoassay. Progesterone testing is performed using a different test methodology at [facility] than other [facility]. Direct result comparison should only be made within the same method.REF VALUESMALE <0.2-0.8 FOLLICULAR PHASE <0.2-1.5 LUTEAL PHASE 7.4-15.4 POSTMENOPAUSAL <0.2-0.2 1ST TRIMESTER 12.0-84.0 2ND TRIMESTER 10.2-58.8 3RD TRIMESTER 46.5-160 Estradiol, Serumon E2 [Mass/Vol] 348 pg/mL MG-OBGYN-Ri s man 310 IVF Work Phone: Comment on above: Estradiol measuremen t is performed using the [employer] [place] Access Estradiol Immunoassay. Estradiol testing is performed using a different test methodology at [facility] than other [facility]. Direct result comparison should only be made within the same method.REF VALUESFOLLICULAR PHASE 20-144MID CYCLE 64-357LUTEAL PHASE 56-214POSTMENOPAUSE < 32PREPUBERTY < 20FEMALE 10-18Y 8-110MALE 10-18Y < 20ADULT MALE < 40 Laboratory - Chemistry and C hemistry - challengeon 12-04-2021 TSH Qn 1.77 m[IU]/L See Below VE-RKZJP-Swd jayesh Marmolejo IVF Work Phone: Comment on above: Reference Range: 0.4 4 - 3.98 TSH testing is performed using different testing methodology at [facility] than [facility]. Direct result comparisons should only be made within the same method. No Panel Informationon 12-04 Please click on the link to view the study images Normal EU-YNXII-Rjx man Francie IVF Work Phone: Progesterone, Serumon 2021 Progesterone [Mass/Vol] 0.1 ng/mL FX-ONMMY-Fje man 310 IVF Work Phone: Comment on above: Progesterone is perf ormed using the [employer] Access Immunoassay. Progesterone testing is performed using a different test methodology at [facility] than other [facility]. Direct result comparison should only be made within the same method.REF VALUESMALE <0.2-0.8 FOLLICULAR PHASE <0.2-1.5 LUTEAL PHASE 7.4-15.4 POSTMENOPAUSAL <0.2-0.2 1ST TRIMESTER 12.0-84.0 2ND TRIMESTER 10.2-58.8 3RD TRIMESTER 46.5-160 CBC AUTO DIFFon 11-15-2021 BASO # 0.1 103/ul Normal 0.0-0.[address] [facility] Comment on above: Performed By: #### C BC #### [facility] [address] [address] [address] Jose Holley Basophils/100 WBC (Bld) 0.8 % Normal 0.2-2.[address] [facility] Comment on above: Performed By: #### C BC #### [facility] [address] [place] [address] Dr. Jose Holley EO # 0.1 103/ul Normal 0.0-0.[address] [facility] Comment on above: Performed By: #### C BC #### [facility] [address] [place] [address] Dr. Jose Holley Eosinophils/100 WBC (Bld) 0.9 % Normal 0.9-7.[address] [facility] Comment on above: Performed By: #### C BC #### [facility] [address] [place] [address] Dr. Jose Holley Erythrocyte distribution width (RBC) [Ratio] 13.9 % Normal 11.0-15.[address] [facility] Comment on above: Performed By: #### C BC #### [facility] [address] [place] [address] Dr. Jose Holley Hematocrit (Bld) [Volume fraction] 41.8 % Normal 36.0-48.[address] [facility] Comment on above: Performed By: #### C BC #### [facility] [address] [place] [address] Dr. Jose Holley Hemoglobin (Bld) [Mass/Vol] 14.0 g/dL Normal 12.0-16.[address] [facility] Comment on above: Performed By: #### C BC #### [facility] [address] [place] [address] Dr. Jose Holley IG # 0.02 10e3/ul Normal 0.00-0.03 [facility] Comment on above: Performed By: #### C BC #### [facility] [address] [place] [address] Dr. Jose Holley IG % 0.2 % Normal 0.0-0.5 [facility] Comment on above: Performed By: #### C BC #### [facility] [address] [place] [address] Dr. Jose Holley LYMPH # 1.7 103/ul Normal 1.2-3.8 [facility] Comment on above: Performed By: #### C BC #### [facility] [address] [place] [address] Dr. Jose Holley Lymphocytes/100 WBC (Bld) 19.9 % Critically low 20.5-60.[address] [facility] Comment on above: Performed By: #### C BC #### [facility] [address] [place] [address] Dr. Jose Holley MANUAL DIFF REQ NO Normal [facility] Comment on above: Performed By: #### C BC #### [facility] [address] [place] [address] Dr. Jose Holley MCH (RBC) [Entitic mass] 30.7 pg Normal 26.7-34.0 [facility] Comment on above: Performed By: #### C BC #### [facility] [address] [place] [address] Dr. Jose Holley MCHC (RBC) [Mass/Vol] 33.5 g/dL Normal 29.9-35.2 [facility] Comment on above: Performed By: #### C BC #### [facility] [address] [place] [address] Dr. Jose Holley MCV (RBC) [Entitic vol] 91.7 fL Normal 81.0-99.[address] [facility] Comment on above: Performed By: #### C BC #### [facility] [address] [place] [address] Dr. Jose Holley MONO # 0.6 103/ul Normal 0.3-0.8 [facility] Comment on above: Performed By: #### C BC #### [facility] [address] [place] [address] Dr. Jose Holley Monocytes/100 WBC (Bld) 6.5 % Normal 1.7-12.0 [facility] Comment on above: Performed By: #### C BC #### [facility] [address] [place] [address] Dr. Jose oHlley NEUT # 6.2 103/ul Normal 1.4-6.5 [facility] Comment on above: Performed By: #### C BC #### [facility] [address] [address] [address] Jose Holley Neutrophils/100 WBC (Bld) 71.7 % Normal 43.0-75.[address] [facility] Comment on above: Performed By: #### C BC #### [facility] [address] [address] [address] Jose Holley Platelet mean volume (Bld) [Entitic vol] 10.7 fL Normal 9.5-13.5 [facility] Comment on above: Performed By: #### C BC #### [facility] [address] [place] [address] Dr. Jose Holley PLT 230 103/ul Normal 150-[address] [facility] Comment on above: Performed By: #### C BC #### [facility] [address] [place] [address] Dr. Jose Holley RBC 4.56 106/ul Normal 4.20-5.[address] [facility] Comment on above: Performed By: #### C BC #### [facility] [address] [place] [address] Dr. Jose Holley WBC 8.7 103/ul Normal 4.0-11.[address] [facility] Comment on above: Performed By: #### C BC #### [facility] [address] [place] [address] Dr. Jose Holley LIPID PROFILEon 11-15-2021 CHOL-HDL RATIO NORM SEE BELOW Normal [facility] Comment on above: Result Comment: 3.3 - 4.4 LOW RISK 4.4 - 7.1 AVERAGE RISK 7.1 - 11.0 MODERATE RISK >11.0 HIGH RISK Performed By: #### C MP, LIPID #### [facility] [address] [place] [address] Dr. Jose Holley Cholesterol [Mass/Vol] 178 mg/dL Normal <=200 [facility] Comment on above: Performed By: #### C MP, LIPID #### [facility] [address] [place] [address] Dr. Jose Holley Cholesterol in HDL [Mass/Vol] 43 mg/dL Normal 40-60 [facility] Comment on above: Performed By: #### C MP, LIPID #### [facility] [address] [address] [address] Jose Holley Cholesterol in LDL [Mass/Vol] 120.4 mg/dL Normal [facility] Comment on above: Performed By: #### C MP, LIPID #### [facility] [address] [place] [address] Dr. Jose Holley Cholesterol.total/C holesterol in HDL [Mass ratio] 4.1 {ratio} Normal [facility] Comment on above: Performed By: #### C MP, LIPID #### [facility] [address] [place] [address] Dr. Jose Holley HDL NORMAL > or = 60 mg/dl - LO W CARDIOVASCULAR RISK <40 mg/dl - HIGH CARDIOVASCULAR RISK Normal [facility] Comment on above: Performed By: #### C MP, LIPID #### [facility] [address] [place] [address] Dr. Jose Holley LDL CALC NORMAL SEE BELOW Normal [facility] Comment on above: Result Comment: <100 mg/dl OPTIMAL 100 - 129 mg/dl NEAR OR ABOVE OPTIMAL 130 - 159 mg/dl BORDERLINE HIGH 160 - 189 mg/dl HIGH >190 mg/dl VERY HIGH Performed By: #### C MP, LIPID #### [facility] [address] [place] [address] Dr. Jose Holley Triglyceride [Mass/Vol] 73 mg/dL Normal <=[address] [facility] Comment on above: Performed By: #### C MP, LIPID #### [facility] [address] [place] [address] Dr. Jose Holley VLDL CALC 14.6 mg/dL Normal [facility] Comment on above: Performed By: #### C MP, LIPID #### [facility] [address] [place] [address] Dr. Jose Holley PROF 14(COMP METB)on 022 Albumin [Mass/Vol] 3.5 g/dL Normal 3.4-5.0 [facility] Comment on above: Performed By: #### C MP, LIPID #### [facility] [address] [place] [address] Dr. Jose Holley Albumin/Globulin [Mass ratio] 0.8 {ratio} Normal [facility] Comment on above: Performed By: #### C MP, LIPID #### [facility] [address] [place] [address] Dr. Jose Holley ALP [Catalytic activity/Vol] 51 U/L Normal 46-[address] [facility] Comment on above: Performed By: #### C MP, LIPID #### [facility] [address] [place] [address] Dr. Jose Holley ALT [Catalytic activity/Vol] 27 U/L Normal 14-[address] [facility] Comment on above: Performed By: #### C MP, LIPID #### [facility] [address] [place] [address] Dr. Jose Holley Anion gap [Moles/Vol] 11.5 mmol/L Normal [facility] Comment on above: Performed By: #### C MP, LIPID #### [facility] [address] [place] [address] Dr. Jose Holley AST [Catalytic activity/Vol] 18 U/L Normal 15-[address] [facility] Comment on above: Performed By: #### C MP, LIPID #### [facility] [address] [place] [address] Dr. Jose Holley Bilirubin [Mass/Vol] 0.2 mg/dL Normal 0.2-1.[address] [facility] Comment on above: Performed By: #### C MP, LIPID #### [facility] [address] [place] [address] Dr. Jose Holley Calcium [Mass/Vol] 8.5 mg/dL Normal 8.5-10.1 [facility] Comment on above: Performed By: #### C MP, LIPID #### [facility] [address] [place] [address] Dr. Jose Holley Chloride [Moles/Vol] 105 mmol/L Normal 98-[address] [facility] Comment on above: Performed By: #### C MP, LIPID #### [facility] [address] [place] [address] Dr. Jose Holley CO2 [Moles/Vol] 24.5 mmol/L Normal 21.0-32.0 [facility] Comment on above: Performed By: #### C MP, LIPID #### [facility] [address] [place] [address] Dr. Jose Holley Creatinine [Mass/Vol] 0.77 mg/dL Normal 0.55-1.[address] [facility] Comment on above: Performed By: #### C MP, LIPID #### [facility] [address] [place] [address] Dr. Jose Holley EGFR-AF BRAZILIAN >60 Normal >=60 [facility] Comment on above: Performed By: #### C MP, LIPID #### [facility] [address] [place] [address] Dr. Jose Holley EGFR-NON AF BRAZILIAN >60 Normal >=60 [facility] Comment on above: Performed By: #### C MP, LIPID #### [facility] [address] [place] [address] Dr. Jose Holley Globulin (S) [Mass/Vol] 4.2 g/dL Normal [facility] Comment on above: Performed By: #### C MP, LIPID #### [facility] [address] [place] [address] Dr. Jose Holley Glucose [Mass/Vol] 89 mg/dL Normal 74-106 [facility] Comment on above: Performed By: #### C MP, LIPID #### [facility] [address] [place] [address] Dr. Jose Holley Potassium [Moles/Vol] 4.0 mmol/L Normal 3.5-5.1 [facility] Comment on above: Performed By: #### C MP, LIPID #### [facility] [address] [place] [address] Dr. Jose Holley Protein [Mass/Vol] 7.7 g/dL Normal 6.4-8.2 [facility] Comment on above: Performed By: #### C MP, LIPID #### [facility] [address] [place] [address] Dr. Jose Holley Sodium [Moles/Vol] 137 mmol/L Normal 136-145 [facility] Comment on above: Performed By: #### C MP, LIPID #### [facility] [address] [place] [address] Dr. Jose Holley Urea nitrogen [Mass/Vol] 18.0 mg/dL Normal 7.0-18.[address] [facility] Comment on above: Performed By: #### C MP, LIPID #### [facility] [address] [place], [place] [id number] Dr. Jose Holley Urea nitrogen/Creatinine [Mass ratio] 23.4 mg/mg Normal [facility] Comment on above: Performed By: #### C MP, LIPID #### [facility] [address] [place] [address] Dr. Jose Holley TSHon 11-15-2021 TSH 2.686 uIU/mL Normal 0.358-3.740 [facility] Comment on above: Performed By: #### T SH #### [facility] [address] [place] [address] Dr. Jose Holley Laboratory - Cytologyon Cytology report Cyto stain.thin prep Doc (Cvx/Vag) ME-YWBCT-Sji man 310 IVF Work Phone: EXTRUSION DIE CORRECTOR - Procedure Visiton 0 10-04-2021 EXTRUSION DIE CORRECTOR - Procedure Visit Diagnoses/Problems Fertility testing (V26.21) (Z31.41) Chief Complaint Endosee Active Problems Problems [...] DIRECTED. Lup (more content not included)... Normal [place] Chart Updateon 09-21-2021 Chart Update Chart Update Pt presented for pap but could not obtain as pt was day 1 of menses. Will plan to obtain pap at hysteroscopy. Zari Oviedo CNP 09/21/2021 16:15 Signatures Electronically signed by : RONA Pelayo; Sep 21 2021 4:15PM EST (Author) Normal [employer] EXTRUSION DIE CORRECTOR - Office Visiton 08-30 EXTRUSION DIE CORRECTOR - Office Visit No report was sent Normal [place] Tobacco Screening.on 022 Fall risk assessment a) No falls within the last year BJ-FMXBX-Khp man 320 Work Phone: Last menstrual period start date 22Aug2021 ZQ-ZOQXD-Qbg man 320 Work Phone: Tobacco use status CP b) No EJ-SHGIJ-Ira man 320 Work Phone: Chart Updateon 09-12-2021 [...] HCG, Beta Quantitativeon HCG.beta subunit Qn m[IU]/mL [employer]-TAX LAWYER-Hospice Plan Administrator cker IVF Work Phone: Comment on above: Low-level [...] Total HCG measurement is performed using the [employer] Access Immunoassay which detects intact HCG and free beta HCG subunit. This test is not indicated for use as a tumor marker. HCG testing is performed using a different test methodology at [facility] than other [facility]. Direct result comparison should only be made within the same method. REF VALUESNON FEMALE <5MALES <5 Progesterone, Serumon 2021 Progesterone [Mass/Vol] 8.1 ng/mL OK-PXWGU-Iph er IVF Work Phone: Comment on above: Progesterone is perf ormed using the [employer] Access Immunoassay. Progesterone testing is performed using a different test methodology at [facility] than other [facility]. Direct result comparison should only be made [...] = N; Verified Transmission to [id number]; Last Updated By: Laura Quesada; 08/31/2021 2:17:16 PM TSH WITH REFLEX TO [...] Aug 31 2021 2:20PM EST (Author) Normal [place] EXTRUSION DIE CORRECTOR - Procedure Visiton 0 08-31-2021 EXTRUSION DIE CORRECTOR - Procedure Visit Orders Subclinical hypothyroidism Start: [...] Allergies Medication (more content not included)... Normal [facility] GC + Chlamydia By Amplified Detectionon 08-30-2021 C. trachomatis rRNA WESLEY+probe Ql (Unsp spec) Negative Negative HB-TEZMA-Rvb cker 206A IVF Work Phone: Comment on above: The APTIMA Combo 2 a ssay is FDA-approved for Chlamydia trachomatis and Neisseria gonorrhoeae testing on female endocervical and vaginal swabs, ThinPrep liquid pap samples, male urine samples and urethral swabs. Performance characteristics for Chlamydia trachomatis and Neisseria gonorrhoeae testing on specific cgw-ZGQ-zorwtwha sample types (female urine samples) have been validated by [facility]. This laboratory is certified by CLIA to perform high complexity testing. Samples from all other sites are not validated for this method. N. gonorrhoeae rRNA WESLEY+probe Ql (Unsp spec) Negative Negative BM-BEXAG-Mjh cker 206A IVF Work Phone: Comment on above: SOURCE: Urine The AP RAHEEM Combo 2 assay is FDA-approved for Chlamydia trachomatis and Neisseria gonorrhoeae testing on female endocervical and vaginal swabs, ThinPrep liquid pap samples, male urine samples and urethral swabs. Performance characteristics for Chlamydia trachomatis and Neisseria gonorrhoeae testing on specific shp-OWJ-etirldyd sample types (female urine samples) have been validated by [facility]. This laboratory is certified by CLIA to perform high complexity testing. Samples from all other sites are not validated for this method. HIV 1/2 ANTIGEN/ANTIBODY SCR EEN WITH REFLEX TO CONFIRMATIONon 08-30-2021 HIV 1+2 Ab Qn (S) Non-Reactive See Below MG-TAX LAWYER-Hospice Plan Administrator cker 206A IVF Work Phone: Comment on above: SOURCE: Reference Ra nge: NONREACTIVE HIV Ag/Ab screen is performed using the Siemens [employer] HIV Ag/Ab Combo assay which detects the presence of HIV p24 antigen as well as antibodies to HIV-1 (Group M and O) and HIV-2..No laboratory evidence of HIV infection. If acute HIV infection is suspected, consider testing for HIV RNA by PCR (viral load). Hemoglobin A1Con 08-30-2021 Glucose [Mass/Vol] 94 mg/dL MG-OBG YN-Hospice Plan Administrator cker IVF Work Phone: HbA1c (Bld) [Mass fraction] 4.9 % NY-IDBCE-Dag cker A IVF Work Phone: Comment on above: Diagnosis of Diabete s-Adults Non-Diabetic: < or = 5.6% Increased risk for developing diabetes: 5.7-6.4% Diagnostic of diabetes: > or = 6.5%. Monitoring of Diabetes Age (y) Therapeutic Goal (%) Adults: >18 <7.0 Pediatrics: 13-18 <7.5 7-12 <8.0 0- 6 7.5-8.5 [place] [employer]. Diabetes Care 33(S1), Mar 2009. Hepatitis B Surface Antigeno n 08-30-2021 Hepatitis B Surface Antigen Non-Reactive See Below CD-TSBLC-Poj cker IVF Work Phone: Comment on above: [...] Blood bankon ABO group Nom (Bld) A MG-TAX LAWYER-Hospice Plan Administrator cker IVF Work Phone: Blood group antibody screen Ql Negative HY-HDUWU-Mqt cker IVF Work Phone: Rh immune globulin screen (Bld) [Interp] Positive OV-SAWBA-Ogu cker A IVF Work Phone: Laboratory - Chemistry and C hemistry - challengeon 08-30-2021 TSH Qn 4.86 m[IU]/L above high threshold See Below ZU-CQIIY-Clz cker A IVF Work Phone: Comment on above: Reference Range: 0.4 4 - 3.98 TSH testing is performed using different testing methodology at [facility] than at other [facility]. Direct result comparisons should only be made within the same method. MRI Breast Bilateral with co ntrast full protocolon 08-30-2021 MRI Breast Bilateral with contrast full protocol Normal KQ-ENZVW-Qcb cker IVF Work Phone: Rubella IgG Antibodyon 08-30 Rubella virus IgG IA Ql Positive [facility] Work Phone: Comment on above: INTERPRETATIVE [...] IgG+IgM IA Ql (S) Non-Reactive See Below PM-SZXWB-Gwb cker A IVF Work Phone: Comment on above: SOURCE: Reference Ra nge: NONREACTIVENo significant level of Treponema pallidum antibody detected. Repeat testing in 2 to 4 weeks may be considered if early infection or incubating syphilis infection is suspected. T4 - Free Thyroxine, Serumon 08-30-2021 Free T4 [Mass/Vol] 0.83 ng/dL See Below -OBG YN-Hospice Plan Administrator [facility] IVF Work Phone: Comment on above: Reference Range: 0.6 1 - 1.12 Thyroxine Free testing is performed using different testing methodology at [facility] than at other [facility] hospitals. 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 Normal [facility] Tobacco Screening.on 022 Fall risk assessment a) No falls within the last year FG-HLJZE-KUQ [address]th [place] Work Phone: Last menstrual period start date N/A KH-ZXFXL-CSB 7th [place] Work Phone: Tobacco use status CP b) No KN-ZVQJH-GUM 7th [place] Work Phone: Immunoglobulin G Level, Seru mon 06-08-2021 IgG [Mass/Vol] 652 mg/dL below low threshold 700 - 1600 [employer] 2100 DO Work Phone: Comment on above: MONOCLONAL PROTEINS MAY CAUSE FALSELY LOWRESULTS IN THIS ASSAY. SERUM PROTEINELECTROPHORESIS SHOULD BE DONE THEFIRST TEST TO EVALUATE MONOCLONAL GAMMOPATHY. Laboratory - Allergyon 06-08 A. alternata IgE Qn (S) <0.10 <0.35 [employer]-Kayaking Instructor [employer] Work Phone: Comment on above: SEE IMMUNOCAP INTERP .IGE A. fumigatus IgE Qn (S) <0.10 <0.35 [employer] Work Phone: Comment on above: SEE IMMUNOCAP INTERP .IGE [place] house dust mite IgE Qn (S) <0.10 <0.35 [employer] Work Phone: Comment on above: SEE IMMUNOCAP INTERP .IGE [place] Bowler IgE Qn (S) <0.10 <0.35 [employer] Work Phone: Comment on above: SEE IMMUNOCAP INTERP .IGE Bermuda grass IgE Qn (S) <0.10 <0.35 [employer] Work Phone: Comment on above: SEE IMMUNOCAP INTERP .IGE Boxelder IgE Qn (S) <0.10 <0.35 [employer]-Al lergist [employer] Work Phone: Comment on above: SEE IMMUNOCAP INTERP .IGE C. herbarum IgE Qn (S) <0.10 <0.35 [employer]-Kayaking Instructor s-Tauntr Work Phone: Comment on above: SEE IMMUNOCAP INTERP .IGE [place] IgE Qn (S) <0.10 <0.35 [employer] Work Phone: Comment on above: SEE IMMUNOCAP INTERP .IGE Cat dander IgE Qn (S) 0.15 {KU/L} <0.35 [employer] Work Phone: Comment on above: SEE IMMUNOCAP INTERP .IGE Cockroach IgE Qn (S) <0.10 <0.35 [employer]MMIT-[employer]al[employer] 2100 DO Work Phone: Comment on above: SEE IMMUNOCAP INTERP .IGE Common Pigweed IgE Qn (S) <0.10 <0.35 [employer] Work Phone: Comment on above: SEE IMMUNOCAP INTERP .IGE Uvalde IgE Qn (S) <0.10 <0.35 [employer] Work Phone: Comment on above: SEE IMMUNOCAP INTERP .IGE Dog dander IgE Qn (S) <0.10 <0.35 [employer] Work Phone: Comment on above: SEE IMMUNOCAP INTERP .IGE Egyptian plantain IgE Qn (S) <0.10 <0.35 [employer]-Kayaking InstructorConzoom Work Phone: Comment on above: SEE IMMUNOCAP INTERP .IGE house dust mite IgE Qn (S) <0.10 <0.35 [employer]is1st BankKayaking Instructor s-De[employer] 2100 DO Work Phone: Comment on above: SEE IMMUNOCAP INTERP .IGE Goosefoot IgE Qn (S) <0.10 <0.35 MP-Kayaking InstructorConzoom Work Phone: Comment on above: SEE IMMUNOCAP INTERP .IGE Jackson grass IgE Qn (S) <0.10 <0.35 [employer]-Kayaking InstructorConzoom Work Phone: Comment on above: SEE IMMUNOCAP INTERP .IGE [place] blue grass IgE Qn (S) <0.10 <0.35 [employer]Kayaking InstructorConzoom Work Phone: Comment on above: SEE IMMUNOCAP INTERP .IGE Mountain Juniper IgE Qn (S) <0.10 <0.35 [employer]Kayaking InstructorConzoom Work Phone: Comment on above: SEE IMMUNOCAP INTERP .IGE P. notatum IgE Qn (S) <0.10 <0.35 [employer] Work Phone: Comment on above: SEE IMMUNOCAP INTERP .IGE Pecan or [place] Tree IgE Qn (S) <0.10 <0.35 [employer]-Kayaking InstructorConzoom Work Phone: Comment on above: SEE IMMUNOCAP INTERP .IGE Saltwort IgE Qn (S) <0.10 <0.35 [employer]-Al lergist [employer] Work Phone: Comment on above: SEE IMMUNOCAP INTERP .IGE Sheep Le [place] IgE Qn (S) <0.10 <0.35 [employer]-Kayaking InstructorConzoom Work Phone: Comment on above: SEE IMMUNOCAP INTERP .IGE Silver Birch IgE Qn (S) <0.10 <0.35 [employer]-Kayaking InstructorConzoom Work Phone: Comment on above: SEE IMMUNOCAP INTERP .IGE Royer IgG Qn (S) <0.10 <0.35 [employer]-All ergConzoom Work Phone: Comment on above: SEE IMMUNOCAP INTERP .IGE Total IgE RAST Qn (S) 5.5 {KU/L} See Below [employer]-Kayaking Instructor Wikirin-Tauntr Work Phone: Comment on above: Reference Range: 0.0 - 214.0 Note: Omalizumab (Xolair, Genentech; humanized IgG1 antihuman IgE Fc) treatment does not significantly interfere with the accuracy of total IgE on the ImmunoCAP (GetPrice) platform. J Allergy Clin Immunol 2006;117:759-66). Allergens, parasitic diseases, smoking, and alcohol consumption have been reported to increase levels of total IgE in serum. White Vadim IgE Qn (S) <0.10 <0.35 MP-Kayaking Instructor s-Arnett Work Phone: Comment on above: SEE IMMUNOCAP INTERP .IGE White Elm IgE Qn (S) <0.10 <0.35 MP-Kayaking Instructor s-Arnett Work Phone: Comment on above: SEE IMMUNOCAP INTERP .IGE White mulberry IgE Qn (S) <0.10 <0.35 MP-Kayaking Instructor s-Arnett Work Phone: Comment on above: SEE IMMUNOCAP INTERP .IGE Madelia IgE Qn (S) <0.10 <0.35 MP-Kayaking Instructor s-Arnett Work Phone: Comment on above: SEE IMMUNOCAP INTERP .IGE Laboratory - Microbiology an d Antimicrobial susceptibilityon 06-08-2021 S. pneumoniae 1 IgG (S) [Mass/Vol] 0.7 ug/mL below low threshold >1.3 MP-Kayaking Instructor s-Arnett Work Phone: S. pneumoniae 12 IgG (S) [Mass/Vol] <0.1 below low threshold >1.3 MP-Kayaking Instructor s-Arnett Work Phone: S. pneumoniae 14 IgG (S) [Mass/Vol] 0.2 ug/mL below low threshold >1.3 MP-Kayaking Instructor s-Arnett Work Phone: S. pneumoniae 17 IgG (S) [Mass/Vol] 0.4 ug/mL below low threshold >1.3 MP-Kayaking Instructor s-Arnett Work Phone: S. pneumoniae 19 IgG (S) [Mass/Vol] 0.5 ug/mL below low threshold >1.3 MP-Kayaking Instructor s-Arnett Work Phone: S. pneumoniae 2 IgG (S) [Mass/Vol] 0.9 ug/mL below low threshold >1.3 [employer] Work Phone: S. pneumoniae 20 IgG (S) [Mass/Vol] 1.5 ug/mL >1.3 [employer] Work Phone: S. pneumoniae 22 IgG (S) [Mass/Vol] 0.6 ug/mL below low threshold >1.3 [employer] Work Phone: S. pneumoniae 23 IgG (S) [Mass/Vol] <0.1 below low threshold >1.3 [employer] Work Phone: S. pneumoniae 3 IgG (S) [Mass/Vol] 2.0 ug/mL >1.3 [employer] Work Phone: S. pneumoniae 34 IgG (S) [Mass/Vol] 1.1 ug/mL below low threshold >1.3 [employer] Work Phone: S. pneumoniae 4 IgG (S) [Mass/Vol] 0.1 ug/mL below low threshold >1.3 [employer] Work Phone: S. pneumoniae 43 IgG (S) [Mass/Vol] 1.4 ug/mL >1.3 [employer] Work Phone: S. pneumoniae 5 IgG (S) [Mass/Vol] 0.5 ug/mL below low threshold >1.3 [employer] Work Phone: S. pneumoniae 8 IgG (S) [Mass/Vol] 2.8 ug/mL >1.3 [employer] Work Phone: S. pneumoniae 9 IgG (S) [Mass/Vol] 3.7 ug/mL >1.3 [employer] Work Phone: S. pneumoniae Nauruan type 15B IgG (S) [Mass/Vol] 1.2 ug/mL below low threshold >1.3 MP-Kayaking Instructor s-Arnett Work Phone: S. pneumoniae Nauruan type 18C IgG (S) [Mass/Vol] 0.5 ug/mL below low threshold >1.3 MP-Kayaking Instructor s-Arnett Work Phone: S. pneumoniae Nauruan type 19A IgG (S) [Mass/Vol] 1.8 ug/mL >1.3 MP-Kayaking Instructor s-Arnett Work Phone: S. pneumoniae Nauruan type 33F IgG (S) [Mass/Vol] 1.0 ug/mL below low threshold >1.3 MP-Kayaking Instructor s-Arnett Work Phone: Comment on above: Perfor med At:[employer] [address] [employer] [address] [place] [address]Xlmpszfuai Director: Elmer Gonzalez Ph.D., BCLD (ABB)CLIA#: [id number]: S. pneumoniae Nauruan type 6B IgG (S) [Mass/Vol] 1.0 ug/mL below low threshold >1.3 MP-Kayaking Instructor s-Arnett Work Phone: S. pneumoniae Nauruan type 7F IgG (S) [Mass/Vol] 3.5 ug/mL >1.3 MP-Kayaking Instructor s-Arnett Work Phone: S. pneumoniae Nauruan type 9V IgG (S) [Mass/Vol] 1.2 ug/mL below low threshold >1.3 MP-Kayaking Instructor s-Arnett Work Phone: [place] Binding Lectinon 03- [place] Binding Lectin 503 ng/mL >100 MP-Kayaking Instructor s-Arnett Work Phone: Comment on above: Investigators most f requently use 100 ng/mL as the threshold for defining an MBL deficiency. MBL values below this value may be associated with increased susceptability to infection.*This test was developed and its performance characteristics determined by [employer]. It has not been cleared or approved by the U.S. Food and Drug Administration. Performed At:[employer] [place] [address]Slheioggjl Director: Elmer Gonzalez Ph.D., BCLD (ABB)CLIA#: [id number]: No Panel Informationon 06-08 SEE COMMENT [employer] DO Work Phone: Comment on above: REFERENCE RANGE (IMM UNOCAP) IGE KU/L CLASS INTERPRETATION < 0.10 0 BELOW DETECTION 0.10- 0.34 0/1 EQUIVOCAL 0.35- 0.69 1 LOW POSITIVE 0.70- 3.49 2 MODERATE POSITIVE 3.50- 17.49 3 HIGH JKAKYFEN22.50- 49 4 VERY HIGH [id number] - 99 5 VERY HIGH POSITIVE >100 6 VERY HIGH POSITIVE <0.10 <0.35 [employer] Work Phone: Comment on above: SEE IMMUNOCAP INTERP .IGE Tetanus Abon 06-08-2021 C. tetani IgG IA Qn (S) 3.47 {IU/mL} <0.10 [employer] 2100 DO Work Phone: Comment on above: Interpretation: Non- Protective <0.10 Protective >=0.10 Results for this test are for research purposes only by the assay's manager digital. The performance characteristics of this product have not been established. Results should not be used as a diagnostic procedure without confirmation of the diagnosis by another medically established diagnostic product or procedure. CT Sinus without Contraston 05-21-2021 CT Sinuses WO contrast Normal -Kayaking Instructor s-[place] 2100 DO Work Phone: Office Visiton 04-24-2021 [...] with results and further recommendations. Check out [email or web address] for more information. I recommend you get COVID vaccinated. By signing my name below, I, Geeta Weineribeduard, attest that this documentation has been prepared [...] with results and further recommendations. Check out [email or web address] I recommend you get COVID vaccinated. Moderate [...] Ab IA Qn (S) 1.00 {IU/mL} <0.10 MP-Otolaryng ology-Sheffi eld Work Phone: Comment on above: Interpretation: Non- Protective <0.10 Protective >=0.10 For research use only. Complement, Total, Son 01-31 Complement total hemolytic CH50 Qn 75 [arb'U]/mL 30-75 MP-Otolaryng ology-Sheffi eld Work Phone: Comment on above: Test Performed by:[facility] [place] [id number] Director: Jero Khan M.D. Ph.D.; CLIA# [id number] H. Influenza B Ab, IgGon H. influenzae B IgG (S) [Mass/Vol] 0.0 ug/mL MP-Otolaryng ology-Sheffi eld Work Phone: Comment on above: INTERPRETIVE [...] developed and its performance characteristics determined by [employer]. It has not been cleared or approved by the US Food and Drug Administration. This test was performed in a CLIA certified laboratory and is intended for clinical purposes.Performed By: [employer] [place] [id number] Director: Perlita Wheeler MD Immunoglobulin E Level, Seru mon 01-31-2021 IgE Qn 2 {IU/mL} 0 - 214 MP-Otolaryng Giorgio benavidez Work Phone: Initial Visit (Otolaryngolog [...] first trime (more content not included)... Normal [facility] - Chemistry and C hemistry - challengeon 01-31-2021 IgA [Mass/Vol] 211 mg/dL 70 - 400 MP-Otolary Woopie-Sheffi eld Work Phone: Comment on above: MONOCLONAL [...] 68 mg/dL 40 - 230 MP-Otolary ng Probki Iz okna-Sheffi eld Work Phone: Comment on above: MONOCLONAL [...] MP-Otolaryng ology-Sheffi eld Work Phone: S. pneumoniae Nauruan type 15B IgG (S) [Mass/Vol] <0.1 below low threshold >1.3 MP-Otolaryng ology-Sheffi eld Work Phone: S. pneumoniae Nauruan type 18C IgG (S) [Mass/Vol] 0.2 ug/mL below low threshold >1.3 MP-Otolaryng ology-Sheffi eld Work Phone: S. pneumoniae Nauruan type 19A IgG (S) [Mass/Vol] 0.4 ug/mL below low threshold >1.3 MP-Otolaryng ology-Sheffi eld Work Phone: S. pneumoniae Nauruan type 33F IgG (S) [Mass/Vol] <0.1 below low threshold >1.3 MP-Otolaryng ology-Sheffi eld Work Phone: Comment on above: *This test was devilya palmer and its performance characteristics determined by [employer]. It has not been cleared or approved by the U.S. Food and Drug Administration. Performed At:[employer] [address] [employer] [address] [place] [address]Psdfphylsj Director: Elmer Gonzalez Ph.D., BCLSimeon (ABB)CLIA#: [id number]: S. pneumoniae Nauruan type 6B IgG (S) [Mass/Vol] <0.1 below low threshold >1.3 MP-Otolaryng ology-Sheffi eld Work Phone: S. pneumoniae Nauruan type 7F IgG (S) [Mass/Vol] 1.2 ug/mL below low threshold >1.3 MP-Otolaryng ology-Sheffi eld Work Phone: S. pneumoniae Nauruan type 9V IgG (S) [Mass/Vol] 0.2 ug/mL [...] by PCR, Symptomatic Detected Abnormal See Below HEBERTKatOtolarjermaine benavidez Work Phone: Comment on above: SOURCE: Nasal, Nasop haryngealReference Range: Not Detected.This test has received FDA Emergency Use Authorization (EUA) and has been verified by [facility] ([facility]). This test is only authorized for the duration of time that circumstances exist to justify the authorization of the emergency use of in vitro diagnostic tests for the detection of SARS-CoV-2 virus and/or diagnosis of COVID-19 infection under section 564(b)(1) of the Act, 21 U.S.C. 360bbb-3(b)(1), unless the authorization is terminated or revoked sooner. [facility] is certified under CLIA-88 as qualified to perform high complexity testing. Testing is performed in the [facility] located at [address] [place] [address].SARS-CoV-2/Flu/RSV Multiplex Test: Fact sheet for providers: https://www.fda.gov/media/833691/downloadFact sheet for patients: https://www.fda.gov/media/337983/download Otheron 04-28-2020 Interpreted by: SMJPBEKC58/29/21 16:14Indication======== Suspected Problem with Growth, Class 2 [...] 33 w + 2 dEDD by U/S: 05/31/2020ssigned: based on the IVF / ET date, [...] viewElectronically signed by: EDD 04/28/20 16:14 Normal [place] [id number] Work Phone: Comment on above: ORDER REVISED TO A O B BIOPHYSICAL PROFILE (W/O NST) BY RADIOLOGIST; Original Order Number: [id number] ORDER REVISED TO A O B FOLLOW UP OR REPEAT SCAN BY RADIOLOGIST; Original Order Number: [id number] Hematologyon 04-26-2020 Hematocrit (Bld) [Volume fraction] 34.0 % below low threshold See Below [place] [id number] Work Phone: Comment on above: Reference Range: 36. 0 - 46.0 Hemoglobin (Bld) [Mass/Vol] 11.6 g/dL below low threshold See Below [place] [id number] Work Phone: Comment on above: Reference Range: 12. 0 - 16.0 MCV (RBC) [Entitic vol] 92 fL 80 - 100 [place] [id number] Work Phone: Platelets (Bld) [#/Vol] 150 {x10E9/L} 150 - 450 [place] [id number] Work Phone: RBC (Bld) [#/Vol] 3.70 {x10E12/L} below low threshold See Below [address] Work Phone: Comment on above: Reference Range: 4.0 0 - 5.20 WBC (Bld) [#/Vol] 0.0 {/100_WBC} 0.0 - 0.0 MP- WSPC-WSWH [place] [address] M Work Phone: WBC (Bld) [#/Vol] 10.9 {x10E9/L} 4.4 - 11.3 MP- WSPC-WSWH [place] [address] M Work Phone: Imm/Pathon 04-26-2020 Bacteria identified Aer cx Nom (Genital specimen) PATIENT: WILD YI LOCATION: [facility]#: [id number] : 76 AGE: SEX: F ORDERED BY: TJ CURRIE: VAG-RECTAL COLLECTED: 04/26/20 17:39ANTIBIOTICS AT NEISHA.: RECEIVED : 04/26/20 21:28SITE: Cervix R E S U L T S GROUP B STREP SCREEN FINAL 04/28/20 09:42 NEGATIVE FOR GROUP B BETA STREP. HI-CHEJ-LCPS [place] [address] M Work Phone: Metabolic Panelon 04-26-2020 ALP [Catalytic activity/Vol] 81 U/L 33 - 110 UR-MILL-TMAL [place] [address] M Work Phone: Anion gap [Moles/Vol] 14 mmol/L 10 - 20 OD-OXVI-QHZG [place] [address] M Work Phone: Bilirubin [Mass/Vol] 0.3 mg/dL 0.0 - 1.2 VX-TYST-SWZR [place] [address] M Work Phone: Calcium [Mass/Vol] 8.9 mg/dL 8.6 - 10.3 MP-WSP C-WSWH [place] [address] M Work Phone: Chloride [Moles/Vol] 108 mmol/L above high threshold 98 - 107 VS-GLBF-UFUO [place] [address] M Work Phone: CO2 [Moles/Vol] 21 mmol/L 21 - 32 MP-WS-W [facility] [address] M Work Phone: Creatinine [Mass/Vol] 0.69 mg/dL See Below DR-EOND-UQRU [place] [address] M Work Phone: Comment on above: Reference Range: 0.5 0 - 1.05 Glucose [Mass/Vol] 120 mg/dL above high threshold 74 - 99 GG-BLOV-EWUZ [place] [address] M Work Phone: LDH [Catalytic activity/Vol] 169 U/L 84 - 246 KU-DKAN-UOFD [place] [address] M Work Phone: Potassium [Moles/Vol] 3.6 mmol/L 3.5 - 5.3 SN-WZWU-ILJR [place] [address] M Work Phone: Protein [Mass/Vol] 5.4 g/dL below low threshold 6.4 - 8.2 GV-CDJH-HJBX [place] [address] M Work Phone: Sodium [Moles/Vol] 139 mmol/L 136 - 145 MP[facility]WSP [facility] [address] [facility] Work Phone: Urea nitrogen [Mass/Vol] 14 mg/dL 6 - 23 YK-XQFB-WPCO [place] [address] M Work Phone: Otheron 04-26-2020 Albumin BCP dye [Mass/Vol] 3.2 g/dL below low threshold 3.4 - 5.0 EW-MLQQ-AQLM [place] [address] M Work Phone: ALT With P-5'-P [Catalytic activity/Vol] 16 U/L 7 - [address] [place] [address] M Work Phone: Comment on above: Patients treated wit h Sulfasalazine may generate falsely decreased results for ALT. AST With P-5'-P [Catalytic activity/Vol] 21 U/L 9 - 39 BL-VGOA-VOBT Mary [address] Work Phone: Erythrocyte distribution width (RBC) [Ratio] 13.6 % See Below [address] Work Phone: Comment on above: Reference Range: 11. 5 - 14.5 MCHC (RBC) [Mass/Vol] 34.1 g/dL See Below [address] Work Phone: Comment on above: Reference Range: 32. 0 - 36.0 >60 >[address] Work Phone: Comment on above: CALCULATIONS OF RACQUEL MATED GFR ARE PERFORMED USING THE MDRD STUDY EQUATION FOR THE IDMS-TRACEABLE CREATININE METHODS. CLIN CHEM 2007;53:766-72 Total Protein, Urine Spoton 04-26-2020 Creatinine (U) [Mass/Vol] 555.0 mg/dL above high threshold See Below [address] Work Phone: Comment on above: Reference Range: 20. 0 - 320.0 Protein (U) [Mass/Vol] 49 mg/dL above high threshold 5 - [address] Work Phone: Protein/Creatinine (U) [Ratio] 0.09 {mg/mg_Creat} See Below [address] Work Phone: Comment on above: Reference Range: 0.0 0 - 0.17 Uric Acid, Serumon Urate [Mass/Vol] 7.0 mg/dL above high threshold 2.3 - 6.[address] Work Phone: Comment on above: Venipuncture immedia tely after or during the administration of Metamizole may lead to falsely low results. Testing should be performed immediately prior to Metamizole dosing. BASIC METABOLIC PANELon 12-2 Anion gap [Moles/Vol] 13 mmol/L Normal 10 - 20 [facility] Comment on above: Performed By: #### B MP #### [address] [address] Calcium [Mass/Vol] 8.6 mg/dL Normal 8.6 - 10.3 [facility] Comment on above: Performed By: #### B MP #### [address] [address] Chloride [Moles/Vol] 105 mmol/L Normal 98 - 107 [facility] Comment on above: Performed By: #### B MP #### [address] [address] Creatinine [Mass/Vol] 0.54 mg/dL Normal 0.50 - 1.05 [facility] Comment on above: Performed By: #### B MP #### [address] [address] GFR- AM. >60 Normal >60 [facility] Comment on above: Result Comment: CALC ULATIONS OF ESTIMATED GFR ARE PERFORMED USING THE MDRD STUDY EQUATION FOR THE IDMS-TRACEABLE CREATININE METHODS. CLIN CHEM 2007;53:766-72 Performed By: #### B MP #### [address] [address] GFR-NON AM. >60 Normal >60 [facility] Comment on above: Performed By: #### B MP #### [address] [address] Glucose [Mass/Vol] 99 mg/dL Normal 74 - 99 [facility] Comment on above: Performed By: #### B MP #### [address] [address] HCO3 (Bld) [Moles/Vol] 22 mmol/L Normal 21 - 32 [facility] Comment on above: Performed By: #### B MP #### [address] [address] Potassium [Moles/Vol] 4.0 mmol/L Normal 3.5 - 5.3 [facility] Comment on above: Performed By: #### B MP #### [address] [address] Sodium [Moles/Vol] 136 mmol/L Normal 136 - 145 [facility] Comment on above: Performed By: #### B MP #### [address] [address] Urea nitrogen [Mass/Vol] 10 mg/dL Normal 6 - 23 [facility] Comment on above: Performed By: #### B MP #### [address] [address] CBC AND DIFFERENTIALon 03-22 -2019 % AUTOMATED IMMATURE GRAN 1.3 % High 0.0 - 0.9 [facility] Comment on above: Result Comment: Irma ture Granulocyte Count (IG) includes promyelocytes, myelocytes and metamyelocytes but does not include bands. Percent differential counts (%) should be interpreted in the context of the absolute cell counts (cells/L). Performed By: #### C BCDF #### [address] [address] Basophils (Bld) [#/Vol] 0.04 10*3/uL Normal 0.00 - 0.10 [facility] Comment on above: Performed By: #### C BCDF #### [address] [address] Basophils/100 WBC (Bld) 0.4 % Normal 0.0 - 2.0 [facility] Comment on above: Performed By: #### C BCDF #### [address] [address] Eosinophils (Bld) [#/Vol] 0.14 10*3/uL Normal 0.00 - 0.70 [facility] Comment on above: Performed By: #### C BCDF #### [address] [address] Eosinophils/100 WBC (Bld) 1.3 % Normal 0.0 - 6.0 [facility] Comment on above: Performed By: #### C BCDF #### [address] [place] [address] Erythrocyte distribution width (RBC) [Ratio] 13.3 % Normal 11.5 - 14.5 [facility] Comment on above: Performed By: #### C BCDF #### [address] [address] Hematocrit (Bld) [Volume fraction] 38.3 % Normal 36.0 - 46.0 [facility] Comment on above: Performed By: #### C BCDF #### [address] [address] Hemoglobin (Bld) [Mass/Vol] 12.8 g/dL Normal 12.0 - 16.0 [facility] Comment on above: Performed By: #### C BCDF #### [address] [address] Lymphocytes (Bld) [#/Vol] 1.22 10*3/uL Normal 1.20 - 4.80 [facility] Comment on above: Performed By: #### C BCDF #### [address] [address] Lymphocytes/100 WBC (Bld) 11.2 % Normal 13.0 - 44.0 [facility] Comment on above: Performed By: #### C BCDF #### [address] [address] MCHC (RBC) [Mass/Vol] 33.4 g/dL Normal 32.0 - 36.0 [facility] Comment on above: Performed By: #### C BCDF #### [address] [address] MCV (RBC) [Entitic vol] 94 fL Normal 80 - 100 [facility] Comment on above: Performed By: #### C BCDF #### [address] [address] Monocytes (Bld) [#/Vol] 0.70 10*3/uL Normal 0.10 - 1.00 [facility] Comment on above: Performed By: #### C BCDF #### [address] [address] Monocytes/100 WBC (Bld) 6.4 % Normal 2.0 - 10.0 [facility] Comment on above: Performed By: #### C BCDF #### [address] [address] Neutrophils (Bld) [#/Vol] 8.69 10*3/uL High 1.20 - 7.70 [facility] Comment on above: Performed By: #### C BCDF #### [address] [address] Neutrophils/100 WBC (Bld) 79.4 % Normal 40.0 - 80.0 [facility] Comment on above: Performed By: #### C BCDF #### [address] [address] Nucleated RBC/100 WBC (Bld) [Ratio] 0.0 /100 WBC Normal 0.0 - 0.0 [facility] Comment on above: Performed By: #### C BCDF #### [address] [address] Platelets (Bld) [#/Vol] 193 10*3/uL Normal 150 - 450 [facility] Comment on above: Performed By: #### C BCDF #### [address] [address] RBC (Bld) [#/Vol] 4.06 x10E12/L Normal 4.00 - 5.20 [facility] Comment on above: Performed By: #### C BCDF #### [address] [address] WBC (Bld) [#/Vol] 10.9 10*3/uL Normal 4.4 - 11.3 [facility] Comment on above: Performed By: #### C BCDF #### [address] [address] Complete Blood Count + Diffe rentialon 03-22-2020 Basophils (Bld) [#/Vol] 0.04 {x10E9/L} See Below IG-YINND-Uqo man 310 IVF Work Phone: [phone] Comment on above: Reference Range: 0.0 0 - 0.10 Basophils/100 WBC (Bld) 0.4 % 0.0 - 2.0 DF-MIWBM-Nrz jayesh [facility] IV[facility] Work Phone: [phone] Eosinophils (Bld) [#/Vol] 0.14 {x10E9/L} See Below ZU-OUYUW-Gis jayesh [facility] IV[facility] Work Phone: [phone] Comment on above: Reference Range: 0.0 0 - 0.70 Eosinophils/100 WBC (Bld) 1.3 % 0.0 - 6.0 EU-NRLMP-Jnn jayesh [facility] IV[facility] Work Phone: [phone] Erythrocyte distribution width (RBC) [Ratio] 13.3 % See Below KU-SRLSN-Rcl jayesh [facility] IV[facility] Work Phone: [phone] Comment on above: Reference Range: 11. 5 - 14.5 Hematocrit (Bld) [Volume fraction] 38.3 % See Below TD-PKXLN-Slt jayesh [facility] IV[facility] Work Phone: [phone] Comment on above: Reference Range: 36. 0 - 46.0 Hemoglobin (Bld) [Mass/Vol] 12.8 g/dL See Below KV-YSJRN-Cse jayesh [facility] IV[facility] Work Phone: [phone] Comment on above: Reference Range: 12. 0 - 16.0 Lymphocytes (Bld) [#/Vol] 1.22 {x10E9/L} See Below HM-WPEXU-Fin jayesh [facility] IV[facility] Work Phone: [phone] Comment on above: Reference Range: 1.2 0 - 4.80 Lymphocytes/100 WBC (Bld) 11.2 % See Below LE-VZHHA-Rdk jayesh [facility] IV[facility] Work Phone: [phone] Comment on above: Reference Range: 13. 0 - 44.0 MCHC (RBC) [Mass/Vol] 33.4 g/dL See Below XK-OJTCY-Avk jayesh [facility] IV[facility] Work Phone: [phone] Comment on above: Reference Range: 32. 0 - 36.0 MCV (RBC) [Entitic vol] 94 fL 80 - 100 QQ-SRXWD-Vqr jayesh [facility] IV[facility] Work Phone: [phone] Monocytes (Bld) [#/Vol] 0.70 {x10E9/L} See Below CK-PQBDH-Yjm jayesh [facility] IV[facility] Work Phone: [phone] Comment on above: Reference Range: 0.1 0 - 1.00 Monocytes/100 WBC (Bld) 6.4 % 2.0 - 10.0 SB-HSIPV-Poy jayesh [facility] IV[facility] Work Phone: Neutrophils/100 WBC (Bld) 79.4 % See Below IQ-ZOQMC-Rrm jayesh [facility] IV[facility] Work Phone: [phone] Comment on above: Reference Range: 40. 0 - 80.0 Platelets (Bld) [#/Vol] 193 {x10E9/L} 150 - 450 VB-UYWGQ-Dfk jayesh [facility] IV[facility] Work Phone: [phone] RBC (Bld) [#/Vol] 4.06 {x10E12/L} See Below MG KatOBGYN-Ris jayesh [facility]arm[facility] IVF Work Phone: [phone] Comment on above: Reference Range: 4.0 0 - 5.20 WBC (Bld) [#/Vol] 10.9 {x10E9/L} 4.4 - 11.3 MGKat OBGYN-Ris jayesh [facility] IVF Work Phone: [phone] WBC (Bld) [#/Vol] 0.0 {/100_WBC} 0.0 - 0.0 MG- OBGYN-Ris jayesh [facility] IV[facility] Work Phone: [phone] Complete Blood Count + Differential 1.3 % above high threshold 0.0 - 0.9 QH-KMHYL-Jzz jayesh [facility] IV[facility] Work Phone: [phone] Comment on above: Immature Granulocyte Count (IG) includes promyelocytes, myelocytes and metamyelocytes but does not include bands. Percent differential counts (%) should be interpreted in the context of the absolute cell counts (cells/L). Complete Blood Count + Differential 8.69 {x10E9/L} above high threshold See Below LJ-URCKK-Hsl jayesh [facility] IV[facility] Work Phone: [phone] Comment on above: Reference Range: 1.2 0 - 7.70 GC + Chlamydia By Amplified Detectionon 03-22-2020 C. trachomatis rRNA WESLEY+probe Ql (Unsp spec) Negative Negative [facility] [address] M Work Phone: N. gonorrhoeae rRNA WESLEY+probe Ql (Unsp spec) Negative Negative [facility] [address] M Work Phone: Comment on above: SOURCE: Urine HEPATIC FUNCTION PANELon Albumin [Mass/Vol] 3.0 g/dL Low 3.4 - 5.0 [facility] Comment on above: Performed By: #### H EPFP #### [address] [address] ALP [Catalytic activity/Vol] 62 U/L Normal 33 - 110 [facility] Comment on above: Performed By: #### H EPFP #### [address] [address] ALT [Catalytic activity/Vol] 17 U/L Normal 7 - 45 [facility] Comment on above: Result Comment: Aylin ents treated with Sulfasalazine may generate falsely decreased results for ALT. Performed By: #### H EPFP #### [address] [address] AST [Catalytic activity/Vol] 16 U/L Normal 9 - 39 [facility] Comment on above: Performed By: #### H EPFP #### [address] [address] Bilirubin [Mass/Vol] 0.3 mg/dL Normal 0.0 - 1.2 [facility] Comment on above: Performed By: #### H EPFP #### [address] [address] Bilirubin.direct [Mass/Vol] 0.0 mg/dL Normal 0.0 - 0.3 [facility] Comment on above: Performed By: #### H EPFP #### [address] [address] Protein [Mass/Vol] 5.5 g/dL Low 6.4 - 8.2 [facility] Comment on above: Performed By: #### H EPFP #### [facility] [address] [address] [place] [id number] Hepatic Function Panelon Albumin BCP dye [Mass/Vol] 3.0 g/dL below low threshold 3.4 - 5.0 MN-QTIAS-Agv man 310 IVF Work Phone: [phone] ALP [Catalytic activity/Vol] 62 U/L 33 - 110 AR-RWGRW-Ewq man 310 IVF Work Phone: [phone] ALT With P-5'-P [Catalytic activity/Vol] 17 U/L 7 - 45 PN-EBFFL-Bko man 310 IVF Work Phone: [phone] Comment on above: Patients treated wit h Sulfasalazine may generate falsely decreased results for ALT. AST With P-5'-P [Catalytic activity/Vol] 16 U/L 9 - 39 VG-MISUE-Iae man 310 IVF Work Phone: [phone] Bilirubin [Mass/Vol] 0.3 mg/dL 0.0 - 1.2 ME-WHIII-Cbt man 310 IVF Work Phone: [phone] Bilirubin.direct [Mass/Vol] 0.0 mg/dL 0.0 - 0.3 TO-LGFAB-Qtc man 310 IVF Work Phone: [phone] Protein [Mass/Vol] 5.5 g/dL below low threshold 6.4 - 8.2 CP-AWOXY-Shu man 310 IVF Work Phone: [phone] Metabolic Panelon 03-22-2020 Anion gap [Moles/Vol] 13 mmol/L 10 - 20 TP-NITBR-Bvd man 310 IVF Work Phone: [phone] Calcium [Mass/Vol] 8.6 mg/dL 8.6 - 10.3 MG-OBG YN-Ris man 310 IVF Work Phone: [phone] Chloride [Moles/Vol] 105 mmol/L 98 - 107 IT-KOUHF-Gmg man 310 IVF Work Phone: [phone] CO2 [Moles/Vol] 22 mmol/L 21 - 32 MG-OBGYN- Ris man 310 IVF Work Phone: Creatinine [Mass/Vol] 0.54 mg/dL See Below CD-KAZAW-Vpg man 310 IVF Work Phone: Comment on above: Reference Range: 0.5 0 - 1.05 Glucose [Mass/Vol] 99 mg/dL 74 - 99 MG-OBG YN-Ris man 310 IVF Work Phone: Potassium [Moles/Vol] 4.0 mmol/L 3.5 - 5.3 NG-ZGPVF-Crl man 310 IVF Work Phone: Sodium [Moles/Vol] 136 mmol/L 136 - 145 MG-OBG YN-Ris man 310 IVF Work Phone: Urea nitrogen [Mass/Vol] 10 mg/dL 6 - 23 QH-OLKQK-Hyk man 310 IVF Work Phone: Otheron 03-22-2020 [...] 30 w + 3 dEDD by U/S: 05/28/2020ssigned: based on the IVF / ET date, selected on 10/13/2019Assigned GA 30 w + 5 dAssigned LAURA: 1Pregnancy length 280 d Growth [...] Poor viewElectronically signed by: May,03/22/20 16:35 Normal RM-QGXAB-Jyy man 310 IVF Work Phone: Comment on above: ORDER REVISED TO A O B BIOPHYSICAL PROFILE (W/O NST) BY RADIOLOGIST; Original Order Number: [id number] ORDER REVISED TO A O B FOLLOW UP OR REPEAT SCAN BY RADIOLOGIST; Original Order Number: [id number] >60 >60 YR-ALZMT-Jfz man 310 IVF Work Phone: Comment on above: CALCULATIONS OF RACQUEL MATED GFR ARE PERFORMED USING THE MDRD STUDY EQUATION FOR THE IDMS-TRACEABLE CREATININE METHODS. CLIN CHEM 2007;53:766-72 TOTAL PROTEIN, URINE SPOTon 03-22-2020 CREATININE,URINE Canceled Normal [facility] Comment on above: Order Comment: TEST TOTAL PROTEIN, URINE SPOT WAS CANCELLED, 03/22/2020 14:58 PT. CAME TO [facility] FROM [facility] PHLEBS UNABLE TO CONTAIN BLOOD, URINE SAMPLE WAS TAKEN AT OFFICE. Performed By: #### T PS2 #### [address] [place] [id number] T. PROTEIN/CREAT RATIO Canceled Normal [facility] Comment on above: Order Comment: TEST TOTAL PROTEIN, URINE SPOT WAS CANCELLED, 03/22/2020 14:58 PT. CAME TO [facility] FROM [facility] PHLEBS UNABLE TO CONTAIN BLOOD, URINE SAMPLE WAS TAKEN AT OFFICE. Performed By: #### T PS2 #### [address] [place] [address] TOTAL PROT,URINE SPOT Canceled Normal [facility] Comment on above: Order Comment: TEST TOTAL PROTEIN, URINE SPOT WAS CANCELLED, 03/22/2020 14:58 PT. CAME TO [facility] FROM [facility] PHLEBS UNABLE TO CONTAIN BLOOD, URINE SAMPLE WAS TAKEN AT OFFICE. Performed By: #### T PS2 #### [place] [id number] URIC ACIDon 03-22-2020 Urate [Mass/Vol] 4.9 mg/dL Normal 2.3 - 6.7 [facility] Comment on above: Result Comment: Tasha puncture immediately after or during the administration of Metamizole may lead to falsely low results. Testing should be performed immediately prior to Metamizole dosing. Performed By: #### U TORRES #### [address] [address] Uric Acid, Serumon 0 Urate [Mass/Vol] 4.9 mg/dL 2.3 - 6.7 MG-OBGYN -Ris man 310 IVF Work Phone: Comment on above: Venipuncture immedia tely after or during the administration of Metamizole may lead to falsely low results. Testing should be performed immediately prior to Metamizole dosing. Cult, Urineon 03-10-2020 Bacteria identified Cx Nom (U) PATIENT: WILD YI [place] [facility] [place]#: [id number] : 76 AGE: SEX: F ORDERED BY: RUBY CHOU: URINE COLLECTED: 03/10/20 16:47ANTIBIOTICS AT NEISHA.: RECEIVED : 03/11/20 00:30SITE: Unspecified R E S U L T S URINE CULTURE,BACTERIAL FINAL 03/12/20 08:13 NO SIGNIFICANT GROWTH. EM-IBNEP-Kct man 310 IVF Work Phone: HCG,BETA-QUANTITATIVEon 07-0 [place]CG,[place] [address] mIU/mL Formerly named [facility] Comment on above: Result Comment: Low- level [...] performed using a different test methodology at [facility] than [facility]. Direct result comparison should only be made within the same method. REF VALUES NON FEMALE <5 MALES <5 Performed By: #### H CGQU #### [facility] [address] [place] [address] HCG,BETA-QUANTITATIVEon 06-2 HCG,BETA-QUANTITATI VE 390 mIU/mL Formerly named [facility] Comment on above: Result Comment: Low- level [...] HCG measurement is performed using the [employer] [place] Access Immunoassay which detects intact HCG and free beta HCG subunit. This test is not indicated for use as a tumor marker. HCG testing is performed using a different test methodology at [facility] Direct result comparison should only be made within the same method. REF VALUES NON FEMALE <5 MALES <5 Performed By: #### H CGQU #### [facility] [address] [place] [address] PROGESTERONEon 09-08-2019 PROGESTERONE 22.8 ng/mL Normal Formerly named [facility] Comment on above: Result Comment: Prog esterone is performed using the [employer] [place] Access Immunoassay. Progesterone testing is performed using a different test methodology at [facility]. Direct result comparison should only be made within the same method. REF VALUES MALE <0.2-0.8 FOLLICULAR PHASE <0.2-1.5 LUTEAL PHASE 7.4-15.4 POSTMENOPAUSAL <0.2-0.2 1ST TRIMESTER 12.0-84.0 2ND TRIMESTER 10.2-58.8 3RD TRIMESTER 46.5-160 Performed By: #### P LILO #### [facility] [address] [place] [address] ESTRADIOLon 09-02-2019 ESTRADIOL 294 pg/mL Normal Former[facility] named [facility] Comment on above: Result Comment: Estr adiol measurement is performed using the [employer] [place] Access Immunoassay. Estradiol testing is performed using a different test methodology at [facility] than other [facility]. Direct result comparison should only be made within the same method. REF VALUES FOLLICULAR PHASE 20-144 MID CYCLE 64-357 LUTEAL PHASE 56-214 POSTMENOPAUSE < 32 PREPUBERTY < 20 FEMALE 10-18Y 8-110 MALE 10-18Y < 20 ADULT MALE < 40 Performed By: #### E STRA #### [facility] [address] [place] [address] PROGESTERONEon 09-02-2019 PROGESTERONE 0.4 ng/mL Normal Formerly named [facility] Comment on above: Result Comment: Prog esterone is performed using the [employer] [place] Access Immunoassay. Progesterone testing is performed using a different test methodology at [facility] than other [facility]. Direct result comparison should only be made within the same method. REF VALUES MALE <0.2-0.8 FOLLICULAR PHASE <0.2-1.5 LUTEAL PHASE 7.4-15.4 POSTMENOPAUSAL <0.2-0.2 1ST TRIMESTER 12.0-84.0 2ND TRIMESTER 10.2-58.8 3RD TRIMESTER 46.5-160 Performed By: #### P LILO #### [facility] [address] [place] [address] Progesterone, Serumon 2019 Progesterone [Mass/Vol] ng/mL GT-UCYVR-Mmw man 310 IVF Work Phone: Comment on above: Note new reference r ravinder as of 06/01/2019.REF VALUESMALE <0.3- 1.2 FOLLICULAR PHASE <0.3- 1.4 LUTEAL PHASE 3.3-25.6 MID-LUTEAL PHASE 4.4-28.0POSTMENOPAUSAL <0.3- 0.7 FEMALES: 1ST TRIMESTER 11.2- 90.0 2ND TRIMESTER 25.6- 89.4 3RD TRIMESTER 48.4-422.5 .Patients receiving DHEA-S supplements may show false elevation ofprogesterone for results near 1.0 ng/mL. Contact laboratory [phone] if alternative testing is needed. FLUOROSCOPY, UP TO 1 HRon FLUOROSCOPY, UP TO 1 HR Patient Name: WILD YI STUDY: FLUOROSCOPY, UP TO 1 HR;; 06/11/2019 2:34 pm INDICATION: LEFT CALCANEAL SPUR RESECTION. COMPARISON: None. ACCESSION NUMBER(S): [id number] ORDERING CLINICIAN: CHRISTOPHER HARRIS TECHNIQUE: 2 C-arm views FINDINGS: The initial C-arm view demonstrates a calcaneal posterior enthesophyte, and globular calcification superior to this at the Achilles tendon. There has been resection of these entities on the 2nd image submitted, with 2 anchors at the os calcaneus posteriorly. IMPRESSION: Postsurgical changes as described. Electronically signed by: PORFIRIO ANDRADE MD [facility] History and Physical - Surgi donnie Update [...] the note. I personally evaluated the patient [id number] Attending Provider Inpatient Certification StatementI certify this [...] Profile - Preop v2 10-Jun-2019 13:58 Normal [facility] Operative Reports - [place] 06-11-2019 Operative Reports - [place] [employer] HAND: Cruz Robles DPM, PGY-3 PREOPERATIVE DIAGNOSES: 1. Ruptured left Achilles tendon. 2. Posterior calcaneal spur, left, Elfego's. POSTOPERATIVE DIAGNOSES: 1. Ruptured left Achilles tendon. 2. Posterior calcaneal spur, left, Elfego's. PROCEDURE: 1. Repair of chronic Achilles tendon rupture, left. 2. Resection of calcaneal spur, left calcaneus. 3. Injection of platelet rich plasma, left Achilles. 4. Gastroc recession, left. ESTIMATED BLOOD LOSS: Minimal. IMPLANTS: [place] knotless system and 10X system. ANESTHESIA: General. [...] anchored back onto the calcaneus using the manager digital's recommended technique for the above said [place] anchors. Achilles was noted to be taut. [...] plasma, which was spun down using the manager digital's recommended technique. The patient was then placed [...] Christopher Harris DPM EST EST DICTATION NUMBER: [id number] INTERNAL JOB NUMBER: [id number] Electronic Signatures: Christopher Harris) (Signed on 06-Jul-2019 23:08) Authored Unsigned, Draft (SYS GENERATED) (Entered on 25-Jun-2019 13:30) Entered Unsigned, Draft (SYS GENERATED) (Entered on 24-Jun-2019 11:37) Entered Last Updated: 06-Jul-2019 23:08 by Christopher Harris (CARLOS) [facility] Histologyon 06-11-2019 [facility] Name ANTONIETTA YI Pathologist: DILLON PAZ MD Date of Procedure: 06/11/2019 Date Received: 06/11/2019 Date Reported 06/16/2019 Submitting Physician: SAINZ O. CLOUGHERTY, DPM Location: Other External # FINAL DIAGNOSIS [...] measuring 2.5 x 1.5 x 1.5 cm. Tracer Bullet Section Supervisor sections are submitted in one cassette following decalcification. [facility]/06/11/2019 Normal [facility] Comment on above: Performed By: #### P #### [facility] [address] [place] [facility] [address] Preop Checkliston 06-11-2019 Preop Checklist Preop Checklist: Preop Checklist: Arrival [id number] Arrival Time10:13 Procedure TypeLEFT ACHILLES TENDON REPAIR Temperature C36.9 degrees C Temperature F98.4 degrees F Heart Rate72 beats per minute Respiratory Rate20 breath per minute Blood Pressure Fngukgnv336 mm/Hg Blood Pressure Tlflqchmp17 mm/Hg ID Band Onyes Allergy Bandno known [...] Updated: 11-Jun-2019 10:16 by Scarlet Stein) Normal [facility] CBC AND DIFFERENTIALon 06-06 % AUTOMATED IMMATURE GRAN 0.3 % Normal 0.0 - 0.9 [facility] Comment on above: Result Comment: Irma ture Granulocyte Count (IG) includes promyelocytes, myelocytes and metamyelocytes but does not include bands. Percent differential counts (%) should be interpreted in the context of the absolute cell counts (cells/L). Performed By: #### C BCDF #### [address] [address] Basophils (Bld) [#/Vol] 0.06 10*3/uL Normal 0.00 - 0.10 [facility] Comment on above: Performed By: #### C BCDF #### [address] [address] Basophils/100 WBC (Bld) 0.8 % Normal 0.0 - 2.0 [facility] Comment on above: Performed By: #### C BCDF #### [address] [address] Eosinophils (Bld) [#/Vol] 0.22 10*3/uL Normal 0.00 - 0.70 [facility] Comment on above: Performed By: #### C BCDF #### [address] [address] Eosinophils/100 WBC (Bld) 2.9 % Normal 0.0 - 6.0 [facility] Comment on above: Performed By: #### C BCDF #### [address] [address] Erythrocyte distribution width (RBC) [Ratio] 12.3 % Normal 11.5 - 14.5 [facility] Comment on above: Performed By: #### C BCDF #### [address] [address] Hematocrit (Bld) [Volume fraction] 42.6 % Normal 36.0 - 46.0 [facility] Comment on above: Performed By: #### C BCDF #### [address] [address] Hemoglobin (Bld) [Mass/Vol] 13.9 g/dL Normal 12.0 - 16.0 [facility] Comment on above: Performed By: #### C BCDF #### [facility] [address] [place] [address] Lymphocytes (Bld) [#/Vol] 1.79 10*3/uL Normal 1.20 - 4.80 [facility] Comment on above: Performed By: #### C BCDF #### [facility] [address] [place] [address] Lymphocytes/100 WBC (Bld) 23.8 % Normal 13.0 - 44.0 [facility] Comment on above: Performed By: #### C BCDF #### [facility] [address] [place] [address] MCHC (RBC) [Mass/Vol] 32.6 g/dL Normal 32.0 - 36.0 [facility] Comment on above: Performed By: #### C BCDF #### [facility] [address] [place] [address] MCV (RBC) [Entitic vol] 95 fL Normal 80 - 100 [facility] Comment on above: Performed By: #### C BCDF #### [facility] [address] [place] [address] Monocytes (Bld) [#/Vol] 0.41 10*3/uL Normal 0.10 - 1.00 [facility] Comment on above: Performed By: #### C BCDF #### [facility] [address] [place] [address] Monocytes/100 WBC (Bld) 5.5 % Normal 2.0 - 10.0 [facility] Comment on above: Performed By: #### C BCDF #### [facility] [address] [place] [address] Neutrophils (Bld) [#/Vol] 5.02 10*3/uL Normal 1.20 - 7.70 [facility] Comment on above: Performed By: #### C BCDF #### [facility] [address] [place] [address] Neutrophils/100 WBC (Bld) 66.7 % Normal 40.0 - 80.0 [facility] Comment on above: Performed By: #### C BCDF #### [address] [address] Nucleated RBC/100 WBC (Bld) [Ratio] 0.0 /100 WBC Normal 0.0 - 0.0 [facility] Comment on above: Performed By: #### C BCDF #### [facility] [address] [place] [address] Platelets (Bld) [#/Vol] 271 10*3/uL Normal 150 - 450 [facility] Comment on above: Performed By: #### C BCDF #### [address] [address] RBC (Bld) [#/Vol] 4.50 x10E12/L Normal 4.00 - 5.20 [facility] Comment on above: Performed By: #### C BCDF #### [address] [address] WBC (Bld) [#/Vol] 7.5 10*3/uL Normal 4.4 - 11.3 [facility] Comment on above: Performed By: #### C BCDF #### [address] [address] COMPREHENSIVE PANELon 2019 Albumin [Mass/Vol] 4.1 g/dL Normal 3.4 - 5.0 [facility] Comment on above: Performed By: #### C MP #### [address] [address] ALP [Catalytic activity/Vol] 45 U/L Normal 33 - 110 [facility] Comment on above: Performed By: #### C MP #### [address] [address] ALT [Catalytic activity/Vol] 31 U/L Normal 7 - 45 [facility] Comment on above: Result Comment: Aylin ents treated with Sulfasalazine may generate falsely decreased results for ALT. Performed By: #### C MP #### [address] [address] Anion gap [Moles/Vol] 11 mmol/L Normal 10 - 20 [facility] Comment on above: Performed By: #### C MP #### [address] [address] AST [Catalytic activity/Vol] 23 U/L Normal 9 - 39 [facility] Comment on above: Performed By: #### C MP #### [address] [address] Bilirubin [Mass/Vol] 0.3 mg/dL Normal 0.0 - 1.2 [facility] Comment on above: Performed By: #### C MP #### [address] [address] Calcium [Mass/Vol] 9.1 mg/dL Normal 8.6 - 10.3 [facility] Comment on above: Performed By: #### C MP #### [address] [address] Chloride [Moles/Vol] 104 mmol/L Normal 98 - 107 [facility] Comment on above: Performed By: #### C MP #### [address] [address] Creatinine [Mass/Vol] 0.76 mg/dL Normal 0.50 - 1.05 [facility] Comment on above: Performed By: #### C MP #### [address] [address] GFR- AM. >60 Normal >60 [facility] Comment on above: Result Comment: CALC ULATIONS OF ESTIMATED GFR ARE PERFORMED USING THE MDRD STUDY EQUATION FOR THE IDMS-TRACEABLE CREATININE METHODS. CLIN CHEM 2007;53:766-72 Performed By: #### C MP #### [address] [address] GFR-NON AM. >60 Normal >60 [facility] Comment on above: Performed By: #### C MP #### [address] [address] Glucose [Mass/Vol] 101 mg/dL High 74 - 99 [facility] Comment on above: Performed By: #### C MP #### [address] [address] HCO3 (Bld) [Moles/Vol] 28 mmol/L Normal 21 - 32 [facility] Comment on above: Performed By: #### C MP #### [facility] [address] [place] [address] Potassium [Moles/Vol] 4.0 mmol/L Normal 3.5 - 5.3 [facility] Comment on above: Performed By: #### C MP #### [facility] [address] [place] [address] Protein [Mass/Vol] 6.3 g/dL Low 6.4 - 8.2 [facility] Comment on above: Performed By: #### C MP #### [address] [place] [address] Sodium [Moles/Vol] 139 mmol/L Normal 136 - 145 [facility] Comment on above: Performed By: #### C MP #### [address] [place] [address] Urea nitrogen [Mass/Vol] 16 mg/dL Normal 6 - 23 [facility] Comment on above: Performed By: #### C MP #### [address] [place] [address] Progesterone, Serumon 2019 Progesterone [Mass/Vol] 9.5 ng/mL RT-[id number]-Knd man 310 IVF Work Phone: Comment on above: Patients receiving D HEA-S supplements may show false elevation ofprogesterone for results near 1.0 ng/mL. Contact laboratory [phone] if alternative testing is needed.REF VALUESMALE <0.2-0.8 FOLLICULAR PHASE <0.2-1.5 LUTEAL PHASE 7.4-15.4 POSTMENOPAUSAL <0.2-0.2 1ST TRIMESTER 12.0-84.0 2ND TRIMESTER 10.2-58.8 3RD TRIMESTER 46.5-160 Progesterone, Serumon 2019 Progesterone [Mass/Vol] 0.2 ng/mL [id number]-Csk man 310 IVF Work Phone: Comment on above: Patients receiving D HEA-S supplements may show false elevation ofprogesterone for results near 1.0 ng/mL. Contact laboratory [phone] if alternative testing is needed.REF VALUESMALE <0.2-0.8 FOLLICULAR PHASE <0.2-1.5 LUTEAL PHASE 7.4-15.4 POSTMENOPAUSAL <0.2-0.2 1ST TRIMESTER 12.0-84.0 2ND TRIMESTER 10.2-58.8 3RD TRIMESTER 46.5-160 CBC AND DIFFERENTIALon 12-16 -2019 % AUTOMATED IMMATURE GRAN 1.8 % High 0.0 - 0.9 [facility] named [facility] Comment on above: Result Comment: Perc ent differential counts (%) should be interpreted in the context of the absolute cell counts (cells/L). Performed By: #### C BCDF #### [facility] [address] [place] [address] Basophils (Bld) [#/Vol] 0.11 10*3/uL High 0.00 - 0.10 [facility] Comment on above: Performed By: #### C BCDF #### [facility] [address] [place] [address] Basophils/100 WBC (Bld) 0.9 % Normal 0.0 - 2.0 [facility] Comment on above: Performed By: #### C BCDF #### [facility] [address] [place] [address] Eosinophils (Bld) [#/Vol] 0.10 10*3/uL Normal 0.00 - 0.70 [facility] named [facility] Comment on above: Performed By: #### C BCDF #### [facility] [address] [place] [address] Eosinophils/100 WBC (Bld) 0.8 % Normal 0.0 - 6.0 [facility] named [facility] Comment on above: Performed By: #### C BCDF #### [facility] [address] [place] [address] Erythrocyte distribution width (RBC) [Ratio] 13.2 % Normal 11.5 - 14.5 [facility] named [facility] Comment on above: Performed By: #### C BCDF #### [facility] [address] [place] [address] Hematocrit (Bld) [Volume fraction] 45.4 % Normal 36.0 - 46.0 [facility] named [facility] Comment on above: Performed By: #### C BCDF #### [facility] [address] [place] [address] Hemoglobin (Bld) [Mass/Vol] 14.9 g/dL Normal 12.0 - 16.0 [facility] named [facility] Comment on above: Performed By: #### C BCDF #### [facility] [address] [place] [address] Lymphocytes (Bld) [#/Vol] 2.48 10*3/uL Normal 1.20 - 4.80 [facility] named [facility] Comment on above: Performed By: #### C BCDF #### [facility] [address] [place] [address] Lymphocytes/100 WBC (Bld) 20.8 % Normal 13.0 - 44.0 [facility] named [facility] Comment on above: Performed By: #### C BCDF #### [facility] [address] [place] [address] MCHC (RBC) [Mass/Vol] 32.8 g/dL Normal 32.0 - 36.0 [facility] named [facility] Comment on above: Performed By: #### C BCDF #### [facility] [address] [place] [address] MCV (RBC) [Entitic vol] 94 fL Normal 80 - 100 [facility] named [facility] Comment on above: Performed By: #### C BCDF #### [facility] [address] [place] [address] Monocytes (Bld) [#/Vol] 0.59 10*3/uL Normal 0.10 - 1.00 [facility] named [facility] Comment on above: Performed By: #### C BCDF #### [facility] [address] [place] [address] Monocytes/100 WBC (Bld) 4.9 % Normal 2.0 - 10.0 [facility] named [facility] Comment on above: Performed By: #### C BCDF #### [facility] [address] [place] [address] Neutrophils (Bld) [#/Vol] 8.43 10*3/uL High 1.20 - 7.70 [facility] named [facility] Comment on above: Performed By: #### C BCDF #### [facility] [address] [place] [address] Neutrophils/100 WBC (Bld) 70.8 % Normal 40.0 - 80.0 [facility] named [facility] Comment on above: Performed By: #### C BCDF #### [facility] [address] [place] [address] Platelets (Bld) [#/Vol] 216 10*3/uL Normal 150 - 450 [facility] named [facility] Comment on above: Performed By: #### C BCDF #### [facility] [address] [place] [address] RBC (Bld) [#/Vol] 4.84 x10E12/L Normal 4.00 - 5.20 [facility] named [facility] Comment on above: Performed By: #### C BCDF #### [facility] [address] [place] [address] WBC (Bld) [#/Vol] 11.9 10*3/uL High 4.4 - 11.3 [facility] Comment on above: Performed By: #### C BCDF #### [facility] [address] [place] [address] HCG,BETA-QUANTITATIVEon 02-28 HCG,BETA-QUANTITATI VE <2 Normal [facility] named [facility] Comment on above: Result Comment: Low- level [...] HCG measurement is performed using the [employer] [place] Access Immunoassay which detects intact HCG and free beta HCG subunit. This test is not indicated for use as a tumor marker. HCG testing is performed using a different test methodology at [facility] than other [facility]. Direct result comparison should only be made within the same method. REF VALUES NON FEMALE <5 MALES <5 Performed By: #### H CGQU #### [facility] [address] [place] [address] PROGESTERONEon 03-02-2019 PROGESTERONE 19.0 ng/mL Normal [facility] named [facility] Comment on above: Result Comment: Prog esterone is performed using the [employer] [place] Access Immunoassay. Progesterone testing is performed using a different test methodology at [facility] than other [facility]. Direct result comparison should only be made within the same method. REF VALUES MALE <0.2-0.8 FOLLICULAR PHASE <0.2-1.5 LUTEAL PHASE 7.4-15.4 POSTMENOPAUSAL <0.2-0.2 1ST TRIMESTER 12.0-84.0 2ND TRIMESTER 10.2-58.8 3RD TRIMESTER 46.5-160 Performed By: #### P LILO #### [facility] [address] [place] [id number] HCG,BETA-QUANTITATIVEon HCG,BETA-QUANTITATI VE 30 mIU/mL Formerly named [facility] Comment on above: Result Comment: Low- level [...] performed using a different test methodology at [facility] Direct result comparison should only be made within the same method. REF VALUES NON FEMALE <5 MALES <5 Performed By: #### H CGQU #### [facility] [address] [place] [address] PROGESTERONEon 01-21-2019 PROGESTERONE 17.6 ng/mL Normal [facility] named [facility] Comment on above: Result Comment: Prog esterone is performed using the [employer] [place] Access Immunoassay. Progesterone testing is performed using a different test methodology at [facility] than other [facility]. Direct result comparison should only be made within the same method. REF VALUES MALE <0.2-0.8 FOLLICULAR PHASE <0.2-1.5 LUTEAL PHASE 7.4-15.4 POSTMENOPAUSAL <0.2-0.2 1ST TRIMESTER 12.0-84.0 2ND TRIMESTER 10.2-58.8 3RD TRIMESTER 46.5-160 Performed By: #### P LILO #### [facility] [address] [place] [address] Imm/Pathon 07-29-2018 Cytology report Cyto stain.thin prep Doc (Cvx/Vag) -[facility] 206 Work Phone: Otheron 07-29-2018 05 Date of Procedure: 07/29/2018 Pathologist: [facility], CytologyDate Reported: 08/05/2018Date Received: 07/29/2018Submitting Physician: JAMSHID [...] was verified by the [facility] at [facility]. The lab iscertified under the Clinical Laboratory Amendments of 1988 (CLIA 88) asqualified to perform high complexity clinical laboratory testing.This specimen has been analyzed by the [employer] Imaging System ([employer]an automated imaging and review system, which assists the laboratory inevaluating cells on ThinPrep Pap tests. Following automated imaging, selectedfields from every slide were reviewed by a clerical order filler and/or pathologist.Electronically Signed Out By [facility], Cytology//JDH By the signature on this report, the [...] Source of SpecimenA: THINPREP PAP CERVICAL MP-Reproduct claudy Endocrinolog [facility] 206 Work Phone: Mamm - Screening Mammogram w / Tomosynthesison 07-28-2018 MG Breast screening Interpreted by: OSBALDO LEROY08/04/18 15:48MRN: [id number] Name: WILD YI STUDY:DIGITAL MAMM SCREENING W/ [...] any future breast imaging appointments, please call [phone]). Patient letter sent SERGIONOR I personally reviewed the images/study and I agree with the findingsas stated. This study was interpreted at [facility], [place], [place].Electronically signed by: MONSTER LEROY 08/04/18 15:48 Normal MP-Reproduct claudy Endocrinolog y-[place] 206 Work Phone: Comment on above: ORDER REVISED TO A D IGITAL MAMM SCREENING W/ FERNIE BY RADIOLOGIST Otheron 07-28-2018 Please click on the link to view the study images Normal MP-Reproduct claudy Endocrinolog y-[place] 206 Work Phone: ABDOMEN OR KUBon 02-27-2018 ABDOMEN OR KUB STUDY:ABDOMEN OR KUB ; 02/27/2018 4:57 pmINDICATION:STONES.COMPARI SON:KUB 08/20/2017ACCESSION NUMBER(S):[id number] ERING CLINICIAN:Og ReyesseFINDINGS:Right upper quadrant clips. No definite renal pelvic calculi.Nonobstructive bowel gas pattern. Moderate colonic stool burden. Nofindings of organomegaly.IMPRESSION:No definite renal calculi. Normal [facility] ABDOMEN OR KUBon 07-31-2017 ABDOMEN OR KUB STUDY:ABDOMEN OR KUB ; 07/31/2017 4:40 pmINDICATION:HX OF STONES.COMPARISON:No available comparisonsACCESSION NUMBER(S):[id number] ERING CLINICIAN:Og AguirreECHNIQUE:Two views of the abdomenFINDINGS:5 mm calculus in [...] location in comparison withthe prior exam. Normal [facility] OPERATIVE REPORTon 8 OPERATIVE REPORT Name: YOGI YI MMR: [id number]: Og Cullen M.D.DATE OF SURGERY: 07/31/2017ANESTHESIA: General.1ST DYE HOUSE HAND:PREOP DIAGNOSIS: Left ureteral calculus.POSTOP DIAGNOSIS: Left ureteral [...] weeks with a KUB film. Og CULLEN M.D.[facility] [place]/MedQ/[id number]: 08/01/2017 14:03:15 cc: Og Cullen M.D. [facility] WILD YI [id number] [place] [address] [id number]: Og Cullen,OPERATIVE REPORTFax: [phone]/S: Og Cullen, 08/06/17 1218Electronically Signed __[facility] WILD YI [id number] [place] [address] [id number]: Og Cullen,OPERATIVE REPORT Normal [facility] ABDOMEN OR KUBon 07-30-2017 ABDOMEN OR KUB STUDY:ABDOMEN OR KUB ; 07/30/2017 2:09 pmINDICATION:KIDNEY STONES.COMPARISON:None.ACCE SSION NUMBER(S):[id number] ERING CLINICIAN:Og CullenFINDINGS:Nonobstructiv e bowel gas pattern.The [...] ureteral calculus at the L3 level. Normal [facility] CULTURE URINE W CCon 018 CULTURE URINE W CC URINE CULTURE URINE CONTAMINATED WITH NORMAL SKIN LASHELL NO URINARY PATHOGENS ISOLATED SUGGEST REPEAT IF CLINICALLY INDICATED Normal [facility] Comment on above: Performed By: #### M URINE ####[facility] [place] [address] History and Physical Estefany 0 07-30-2017 History and Physical PAT [facility] Pt Name: WILD YI [id number] [facility] MR # [id number] [address] : 76* * * * * * * * History and Physical PAT * * * * * * * *History of Present IllnessDate of Hoxatlz66/02/18ource of InformationPatientChief Complaint/Present IllnesKidney stoneHPIPatient woke up [...] DAILY, Ref 0(Reported)Entered as Reported by NIMESH ADMAE on 07/30/17 1334Last Action: Reviewed on 07/30/17 133 by NIMESH ADAME DCephalexin Monohydrate*(Keflex 500MG Capsule*) 500 MG UDCAP 500 MG PO BID #20, Ref 0(Reported)Entered as Reported by NIMESH ADAME on 07/30/17 1330Last Action: Reviewed on 07/30/17 133 by NIMESH ADAME DHYDROcodone Bit 5mg AND Acetaminophen 300mg *(VICODIN 5mg-300mg *) 1 EACH TABLET 1 EACH PO Q4PRN PRN PAIN #15, Ref 0(Reported)Entered as Reported by NIMESH ADAME on 07/30/17 1330Last Action: Reviewed on 07/30/171334 by NIMESH ADAME DLevothyroxine Sodium *(Synthroid *) 50 MCG TABLET 50 MCG PO DAILY@6AM, Ref 0(Reported)Entered as Reported by NIMESH ADAME on 07/30/17 1332Last Action: Reviewed on 07/30/171334 by NIMESH ADAME DMelatonin *3 MG TABLET 3 MG PO QHSPRN PRN SLEEP, Ref 0(Reported)Entered as Reported by NIMESH ADAME on 07/30/17 1334Last Action: Reviewed on 07/30/171334 by NIMESH ADAME DMultivitamin *1 TABLET TABLET 1 TABLET PO DAILY, Ref 0(Reported)Entered as Reported by NIMESH ADAME on 07/30/17 1332Last Action: Reviewed on 07/30/171334 by NIMESH ADAME DPrasterone (Dhea)(Dhea) 25 MG CAPSULE 25 MG PO BID, Ref 0(Reported)Entered as Reported by NIMESH ADAME on 07/30/17 1334Last Action: Reviewed on 07/30/171334 by NIMESH ADAME DSertraline HCl *(Zoloft *) 100 MG TABLET 100 MG PO DAILY #90, Ref 0(Reported)Entered as Reported by NIMESH ADAME on 07/30/17 1331Last Action: Reviewed on 07/30/171334 by NIMESH ADAME DUbidecarenone(Coq-10) 100 MG CAPSULE 200 MG PO DAILY, Ref 0(Reported)Entered as Reported by NIMESH ADAME on 07/30/17 1333Last Action: Reviewed on 07/30/171334 by NIMESH ADAME [...] pain or shortness of breathPhysical ExamVital SignsTemp (C)36.2Pxdxk30Ctixwntxwvua3 6Blood Gkspkqkl814/79Pulse-Ox%99He ight - Kssd5Lzuxrw9Gbmkpa - Kc185LvmkkyeknfPcliazm AppearanceWell Developed/Nourished, Alert, Oriented X 3, Cooperative. [...] Date Esig Nay Sunshine 07/30/17 1352 Normal [facility] OPERATIVE REPORTon 8 OPERATIVE REPORT Name: YOGI YI MMR: [id number]: Og Cullen M.D.DATE OF SURGERY: 07/30/2017ANESTHESIA:1ST DYE HOUSE HAND:PREOP DIAGNOSIS: Left proximal ureteral calculus.POSTOP DIAGNOSIS: Left [...] hours with a functional machine. Og CULLEN M.D.[facility] [place]/[facility]/[id number]: 07/30/2017 17:48:32 cc: Og Cullen M.D.Fax: [phone] [facility] WILD YI [id number] [place] [address] [id number]: Og Cullen,OPERATIVE REPORTE/S: Og Cullen, 08/06/17 1218Electronically Signed __[facility] WILD YI [id number] [place] [address] [id number]: Og Cullen,OPERATIVE REPORT Normal [facility] PREG URINE QUALon 07-30-2017 UR HCG QUAL Negative Normal [facility] Comment on above: Order Comment: Speci men Comment: PT IS GOING TO OPS TODAYCampus: MAIN Performed By: #### L UPREG ####[facility] X[address]qa[address] [place] [address] BASIC METABOLIC PANELon 07-01 Anion gap 3 molar conc 9 mmol/L Normal 6-18 [facility] Comment on above: Order Comment: Is pa tient fasting? NO Performed By: #### L BMP, LGFRP ####[facility] [address]qopz[address]73 [place] [address] Calcium mass conc 9.1 mg/dL Normal 8.6-10.3 [facility] Comment on above: Order Comment: Is pa tient fasting? NO Performed By: #### L BMP, LGFRP ####[facility] [address]wd[address] [place] [address] Chloride molar conc 103 mmol/L Normal 98-107 [facility] Comment on above: Order Comment: Is pa tient fasting? NO Performed By: #### L BMP, LGFRP ####[facility] Ghpacedlma98757 [place] [address] CO2 molar conc 29 mmol/L Normal 21-32 [facility] Comment on above: Order Comment: Is pa tient fasting? NO Performed By: #### L BMP, LGFRP ####[facility] [address]wesds[address] [place] [address] Creatinine mass conc 1.18 mg/dL High 0.5-1.05 [facility] Comment on above: Order Comment: Is pa tient fasting? NO Performed By: #### L BMP, LGFRP ####[facility] X[address]vbeumxej69[address] [place] [address] Glucose mass conc 87 mg/dL Normal 74-99 [facility] Comment on above: Order Comment: Is pa tient fasting? NO Performed By: #### L BMP, LGFRP ####[facility] [address]etjrtpc[address]67 [place] [address] Potassium molar conc 4.1 mmol/L Normal 3.5-5.3 [facility] Comment on above: Order Comment: Is pa tient fasting? NO Performed By: #### L BMP, LGFRP ####[facility] [address]qjmcz[address] [place] [address] Sodium molar conc 137 mmol/L Normal 136-145 [facility] Comment on above: Order Comment: Is pa tient fasting? NO Performed By: #### L BMP, LGFRP ####[facility] [address]fntaf[address] [place] [address] Urea nitrogen mass conc 22 mg/dL Normal 6-23 [facility] Comment on above: Order Comment: Is pa tient fasting? NO Performed By: #### L BMP, LGFRP ####[facility] Lkhpdwxtwy[address]216 [place] [address] CBC AUTOon 07-28-2017 Erythrocyte distribution width Auto Ratio (RBC) 12.6 % Normal 11.5-14.5 [facility] Comment on above: Performed By: #### L CBC ####[facility] [address]zmlcl[address] [place] [address] Hematocrit Auto Volume Fraction (Bld) 37.0 % Normal 36.0-48.0 [facility] Comment on above: Performed By: #### L CBC ####[facility] Jrhjguitsq63808 [place] [address] Hemoglobin mass conc (Bld) 11.9 g/dL Low 12.0-15.0 [facility] Comment on above: Performed By: #### L CBC ####[facility] [address] [place] [address] MCH Auto Entitic mass (RBC) 31.6 pg Normal 25.4-34.6 [facility] Comment on above: Performed By: #### L CBC ####[facility] [address] [place] [address] MCHC Auto mass conc (RBC) 32.2 g/dL Normal 30.0-36.0 [facility] Comment on above: Performed By: #### L CBC ####[facility] [address] [place] [address] MCV Auto Entitic volume (RBC) 98.4 fL High 79.0-98.0 [facility] Comment on above: Performed By: #### L CBC ####[address] [address] Platelet mean volume Auto Entitic volume (Bld) 10.8 fL Normal 8.4-11.9 [facility] Comment on above: Performed By: #### L CBC ####[place] [id number] Platelets Auto #/vol (Bld) 262 10*3/uL Normal 140-440 [facility] Comment on above: Performed By: #### L CBC ####[address] [address] RBC Auto #/vol (Bld) 3.76 10*6/uL Normal 3.5-5.5 [facility] Comment on above: Performed By: #### L CBC ####[place] [id number] WBC Auto #/vol (Bld) 8.6 10*3/uL Normal 3.9-11.0 [facility] Comment on above: Performed By: #### L CBC ####[address] [address] GLOMERULAR FILTRATION RATE E [place] 07-28-2017 GFR/1.73 sq M predicted among non-blacks MDRD vol rate/area (S/P/Bld) 58 mL/min/{1.73_m2} Low > 60 [facility] Comment on above: Order Comment: Is pa tient fasting? NO Performed By: #### L BMP, LGFRP ####[facility] [address] [place] [address] IF AMER 67 mL/MIN Normal > 60 [facility] Comment on above: Order Comment: Is pa tient fasting? NO Result Comment: Effe ctive 08/24/14:CKD-EPI equation / based on IDMS traceable creatinine.Continue to use the CREAT CLR-DOSE (Cockgroft-Gault)value for determining medication dose. Performed By: #### L BMP, LGFRP ####[facility] R[address]pktp[address]69 [place] [address] PROTIMEon 07-28-2017 INR Coag RelTime (PPP) 1.07 {INR} Normal 0.9-1.1 [facility] Comment on above: Order Comment: List patient's anticoagulant: NONE SPECIFIED Result Comment: * NO TE: INR therapeutic range of 2.0 - 3.0 is recommended for prophylaxis to prevent embolism, venous thrombosis, pulmonary embolism, and myocardial infarction. INR therapeutic range of 2.5 - 3.5 is recommended for patients with mechanical heart valves. * Performed By: #### L PT, LPTT ####[facility] [address] [place] [address] PT SEC 11.8 seconds Normal 9.8-12.7 [facility] Comment on above: Order Comment: List patient's anticoagulant: NONE SPECIFIED Performed By: #### L PT, LPTT ####[facility] [id number] [place] [address] PTTon 07-28-2017 aPTT Coag time (Bld) 34.1 s Normal 25.0-36.0 [facility] Comment on above: Order Comment: List patient's anticoagulant: NONE SPECIFIED Result Comment: The APTT is no longer used for monitoring unfractionatedheparin therapy. For monitoring heparin therapy, use theHeparin Assay. Performed By: #### L PT, LPTT ####[facility] Kvx[address]ki[address] [place] [address] URINALYSIS COMPLETEon 2017 APPEARANCE CLEAR Normal CLEAR [facility] Comment on above: Performed By: #### L UA ####[facility] Yxn[address]htqwv50272 [place] [address] BILIRUBIN Negative Normal NEGATIVE [facility] Comment on above: Performed By: #### L UA ####[facility] [address] [place] [address] BLOOD Negative Normal NEGATIVE [facility] Comment on above: Performed By: #### L UA ####[facility] [address] [place] [address] Color Nom (U) Yellow Normal YELLOW [facility] Comment on above: Performed By: #### L UA ####[facility] [address] [place] [address] GLUCOSE Negative Normal NEGATIVE [facility] Comment on above: Performed By: #### L UA ####[place] [id number] KETONE Negative Normal NEGATIVE [facility] Comment on above: Performed By: #### L UA ####[facility] [id number] [place], [place] [id number] LEUK ESTERASE Negative Normal NEGATIVE [facility] Comment on above: Performed By: #### L UA ####[facility] [id number] [place] [address] NITRITE Negative Normal NEGATIVE [facility] Comment on above: Performed By: #### L UA ####[place] [address] PH 5.0 Normal 5.0-9.0 [facility] Comment on above: Performed By: #### L UA ####[facility] [address] [place] [address] Protein mass conc Negative Normal NEGATIVE [facility] Comment on above: Performed By: #### L UA ####[facility] [id number] [place] [address] SPEC GRAV 1.008 Normal 1.005-1.030 [facility] Comment on above: Performed By: #### L UA ####[facility] [address] [place], [place] [id number] UROBIL Negative Normal NEGATIVE [facility] Comment on above: Performed By: #### L UA ####[facility] [address] [place] [address] Otheron 05-08-2013 Please click on the link to view the study images Normal MP-Reproduct [facility] 206 Work Phone: Vital Signs Date Time Vital Sign Value Performing Clinician Facility 11-27-2022 14:30-0400 Body height 157.48 cm Aquiles Ball Other [facility] Other 11-27-2022 14:30-0400 Body mass index (BMI) [Ratio] 40.05 kg/m2 Aquiles Ball Other [facility] Other 11-27-2022 14:30-0400 Body weight 99.34 kg Aquiles Ball Other [facility] Other 11-27-2022 14:30-0400 Diastolic blood pressure 86 mm[Hg] Aquiles Ball Other [facility] Other 11-27-2022 14:30-0400 Respiratory rate 12 /min Aquiles Ball Other [facility] Other 11-27-2022 14:30-0400 Systolic blood pressure 126 mm[Hg] Aquiles Ball Other [facility] Other 12-28-2021 08:44-0400 Body height 157.48 cm Aquiles E Ball Work Phone: [employer] 2100 DO Work Phone: 12-28-2021 08:44-0400 Body mass index (BMI) [Ratio] 42.07 kg/m2 Aquiles E Ball Work Phone: [employer] 2100 DO Work Phone: 12-28-2021 08:44-0400 Body surface area Derived from formula 2.03 m2 Aquiles E Ball Work Phone: [employer] 2100 DO Work Phone: 12-28-2021 08:44-0400 Body weight 104.32 kg Aquiles E Ball Work Phone: XI-Aegvellcvs-Qyuhgj ke 2100 DO Work Phone: 12-04-2021 09:12-0400 Body height 157.48 cm Aquiles E Ball Work Phone: YA-KCSBY-Jjivmz 310 IVF Work Phone: 12-04-2021 09:12-0400 Body mass index (BMI) [Ratio] 40.24 kg/m2 Aquiles E Ball Work Phone: YL-XIDJT-Tuwxjv 310 IVF Work Phone: 12-04-2021 09:12-0400 Body surface area Derived from formula 1.99 m2 Aquiles E Ball Work Phone: IB-HJANC-Kpmowl 310 IVF Work Phone: 12-04-2021 09:12-0400 Body weight 99.79 kg Aquiles E Ball Work Phone: SB-NBJDJ-Uhvzuw 310 IVF Work Phone: 09-21-2021 11:12-0400 Body height 157.48 cm Aquiles E Ball Work Phone: NE-EHLTO-Xvpbsw 320 Work Phone: 09-21-2021 11:12-0400 Body mass index (BMI) [Ratio] 41.88 kg/m2 Aquiles E Ball Work Phone: MB-VWXFV-Ujgwtr 320 Work Phone: 09-21-2021 11:12-0400 Body surface area Derived from formula 2.02 m2 Aquiles E Ball Work Phone: JO-GCCRL-Litzmw 320 Work Phone: 09-21-2021 11:12-0400 Body weight 103.87 kg Aquiles E Ball Work Phone: IJ-CRNRQ-Ifisbb 320 Work Phone: 09-21-2021 11:12-0400 Diastolic blood pressure 84 mm[Hg] Aquiles E Ball Work Phone: HG-BBOQU-Habzfl 320 Work Phone: 09-21-2021 11:12-0400 Heart rate 76 /min Aquiles Chapa Ball Work Phone: BK-JSVLY-Xvfkja 320 Work Phone: 09-21-2021 11:12-0400 Systolic blood pressure 131 mm[Hg] Aquiles Chapa Ball Work Phone: BF-HQEBC-Gsxsom 320 Work Phone: 09-21-2021 11:12-0400 0 1 Aquiles Chapa Ball Work Phone: UH-UYHAG-Akswom 320 Work Phone: Comment on above: PainScale 09-21-2021 11:12-0400 4 1 Aquiles Escobedo Work Phone: BC-IGEHT-Jlhhik 320 Work Phone: Comment on above: GRAV 09-21-2021 11:12-0400 1 1 Aquiles Escobedo Work Phone: CQ-DTAEB-Bhvfeg 320 Work Phone: Comment on above: PARA 06-15-2021 13:09-0400 Body height 157.48 cm Aquiles Escobedo Work Phone: EH-CWLKS-TYW 7th [place] Work Phone: 06-15-2021 13:09-0400 Body mass index (BMI) [Ratio] 39.51 kg/m2 Aquiles Chapa Ball Work Phone: HY-LFPCY-OIY 7th [place] Work Phone: 06-15-2021 13:09-0400 Body surface area Derived from formula 1.98 m2 Aquiles Chapa Ball Work Phone: ZY-NUKBE-EDX 7th [place] Work Phone: 06-15-2021 13:09-0400 Body weight 97.98 kg Aquiles Chapa Ball Work Phone: MJ-FITFX-DXN 7th [place] Work Phone: 06-15-2021 13:09-0400 5 1 Aquiles E Ball Work Phone: QR-YWADG-MBS 7th [place] Work Phone: Comment on above: GRAV 06-15-2021 13:09-0400 1 1 Aquiles E Ball Work Phone: DN-LXJEX-GUU 7th [place] Work Phone: Comment on above: PARA 06-15-2021 13:09-0400 0 1 Aquiles E Ball Work Phone: YZ-PSXFP-TAO 7th [place] Work Phone: Comment on above: PainScale 04-24-2021 15:29-0500 Body mass index (BMI) [Ratio] 39.51 kg/m2 Aquiles E Ball Work Phone: WH-Wzdpiyzipz-Eveabn ke 2100 DO Work Phone: 04-24-2021 15:29-0500 Body surface area Derived from formula 1.98 m2 Aquiles E Ball Work Phone: FL-Yrhiidduhn-Oecclb ke 2100 DO Work Phone: 04-24-2021 15:29-0500 Body weight 97.98 kg Aquiles E Ball Work Phone: ET-Gfrpijjmln-Jiwntm ke 2100 DO Work Phone: 04-24-2021 15:29-0500 Diastolic blood pressure 88 mm[Hg] Aquiles E Ball Work Phone: SM-Tzrbyaxnpb-Vmvyzl ke 2100 DO Work Phone: 04-24-2021 15:29-0500 Heart rate 76 /min Aquiles E Ball Work Phone: GS-Smxyrjibit-Obidvf ke 2100 DO Work Phone: 04-24-2021 15:29-0500 SaO2% (BldA) [Mass fraction] 98 % Aquiles E Ball Work Phone: AF-Mgbfxoshhi-Joaleb ke 2100 DO Work Phone: 04-24-2021 15:29-0500 Systolic blood pressure 130 mm[Hg] Aquiles Chapa Ball Work Phone: TT-Choeshkvpj-Mbmnee ke 2100 DO Work Phone: 01-31-2021 10:14-0400 Body height 157.48 cm Aquiles E Ball Work Phone: WL-Acnxjgnnfhrxui-Mr effield Work Phone: 01-31-2021 10:14-0400 Body mass index (BMI) [Ratio] 38.41 kg/m2 Aquiles E Ball Work Phone: OJ-Xdqogddhzgpooc-Tm effield Work Phone: 01-31-2021 10:14-0400 Body surface area Derived from formula 1.95 m2 Aquiles E Ball Work Phone: TZ-Gxfsgavmazkpja-Hy effield Work Phone: 01-31-2021 10:14-0400 Body weight 95.26 kg Aquiles E Ball Work Phone: WG-Oxchygyqfuwkzo-Qy effield Work Phone: 05-04-2020 12:56-0500 BMI (Body Mass Index) 49.04 kg/m2 Luana Godinez OR-SHGF-GTHZ [place] [address] M Work Phone: 05-04-2020 12:56-0500 Body Temperature 97.4 [degF] Luana Godinez TN-LMLZ-NKSF [place] [address] M Work Phone: 05-04-2020 12:56-0500 Body weight 121.62 kg Luana Godinez CN-SXTL-GOWO [place] [address] M Work Phone: 05-04-2020 12:56-0500 BP Diastolic 86 mm[Hg] Luana Godinez NF-FIRK-FKBB [place] [address] M Work Phone: 05-04-2020 12:56-0500 BP Systolic 124 mm[Hg] Luana Godinez PX-SIOC-ZQDV [place] [address] M Work Phone: 05-04-2020 12:56-0500 BSA (Body Surface Area) 2.17 m2 Luana Godinez MP-WSPC-WSWH [place] [address] M Work Phone: 05-04-2020 12:56-0500 Height 157.48 cm Luana Godinez MP-WSPC-WSWH [place] [address] M Work Phone: 05-04-2020 12:56-0500 5 1 Luana Godinez MP-WSPC-WSWH [place] [address] M Work Phone: Comment on above: 05-04-2020 12:56-0500 0 1 Luana Godinez MP-WSPC-WSWH [place] [address] M Work Phone: Comment on above: Para 05-02-2020 16:16-0500 BMI (Body Mass Index) 48.9 kg/m2 Luana Godinez MP-WSPC-WSWH [place] [address] M Work Phone: 05-02-2020 16:16-0500 Body Temperature 97 [degF] Luana Godinez MP-WSPC-WSWH [place] [address] M Work Phone: 05-02-2020 16:16-0500 Body weight 121.28 kg Luana Godinez MP-WSPC-WSWH [place] [address] M Work Phone: 05-02-2020 16:16-0500 BSA (Body Surface Area) 2.16 m2 Luana Godinez MP-WSPC-WSWH [place] [address] M Work Phone: 05-02-2020 16:16-0500 Height 157.48 cm Luana Godinez MP-WSPC-WSWH [place] [address] M Work Phone: 05-02-2020 16:16-0500 0 1 Luana Godinez JH-DIEA-EKGI [place] [address] M Work Phone: Comment on above: Pain Scale Para 05-02-2020 16:16-0500 5 1 Luana Godinez XF-GMAP-YLBP [place] [address] M Work Phone: Comment on above: 04-28-2020 15:57-0500 BMI (Body Mass Index) 48.52 kg/m2 Luana Godinez KS-VJDF-BEJK [place] [address] M Work Phone: 04-28-2020 15:57-0500 Body Temperature 97.2 [degF] Luana Godinez XV-RNTW-DSMW [place] [address] M Work Phone: 04-28-2020 15:57-0500 Body weight 120.32 kg Luana Godinez MP-WSPC-WSWH [place] [address] M Work Phone: 04-28-2020 15:57-0500 BP Diastolic 94 mm[Hg] Luana Godinez TM-OIUG-DRGK [place] [address] M Work Phone: 04-28-2020 15:57-0500 BP Systolic 138 mm[Hg] Luana Godinez NW-BZKO-OTLX [place] [address] M Work Phone: 04-28-2020 15:57-0500 BSA (Body Surface Area) 2.16 m2 Luana Godinez UA-SFSN-HNYX [place] [address] M Work Phone: 04-28-2020 15:57-0500 Height 157.48 cm Luana Godinez VI-CPVX-IIML [place] [address] M Work Phone: 04-28-2020 15:57-0500 0 1 Luana Godinez MP-WSPC-WSWH [place] [address] M Work Phone: Comment on above: Para Pain Scale 04-28-2020 15:57-0500 5 1 Luana Godinez AO-CMIU-FQYC [place] [address] M Work Phone: Comment on above: 04-26-2020 17:45-0500 BMI (Body Mass Index) 48.49 kg/m2 Luana Godinez MP-WSPC-WSWH [place] [address] M Work Phone: 04-26-2020 17:45-0500 Body Temperature 97.4 [degF] Luana Godinez WN-SVPY-HJCF [place] [address] M Work Phone: 04-26-2020 17:45-0500 Body weight 120.26 kg Luana Godinez MP-WSPC-WSWH [place] [address] M Work Phone: 04-26-2020 17:45-0500 BP Diastolic 88 mm[Hg] Luana Godinez MU-JNJX-GNNZ [place] [address] M Work Phone: 04-26-2020 17:45-0500 BP Systolic 150 mm[Hg] Luana Godinez YQ-OWRB-UZMW [place] [address] M Work Phone: 04-26-2020 17:45-0500 BSA (Body Surface Area) 2.15 m2 Luana Godinez FQ-QUHV-REUG [place] [address] M Work Phone: 04-26-2020 17:45-0500 Height 157.48 cm Luana Godinez MP-WSPC-WSWH [place] [address] M Work Phone: 04-26-2020 17:45-0500 0 1 Luana Godinez MP-WSPC-WSWH [place] [address] M Work Phone: Comment on above: Pain Scale Para 04-26-2020 17:45-0500 5 1 Luana Godinez FL-QLPB-KVFR [place] [address] M Work Phone: Comment on above: 04-19-2020 17:14-0500 BMI (Body Mass Index) 46.53 kg/m2 Luana Godinez MP-WSPC-WSWH [place] [address] M Work Phone: 04-19-2020 17:14-0500 Body Temperature 97.3 [degF] Luana Godinez PD-SHPO-DOHT [place] [address] M Work Phone: 04-19-2020 17:14-0500 Body weight 115.38 kg Luana Godinez MP-WSPC-WSWH [place] 135[address] M Work Phone: 04-19-2020 17:14-0500 BP Diastolic 86 mm[Hg] Luana Godinez HX-YBPP-XBZL [place] [address] M Work Phone: 04-19-2020 17:14-0500 BP Systolic 124 mm[Hg] Luana Godinez YW-PNHD-JAUW [place] [address] M Work Phone: 04-19-2020 17:14-0500 BSA (Body Surface Area) 2.12 m2 Luana Godinez MP-WSPC-WSWH [place] [address] M Work Phone: 04-19-2020 17:14-0500 Height 157.48 cm Luana Godinez MP-WSPC-WSWH [place] [address] M Work Phone: 04-19-2020 17:14-0500 5 1 Luana Godinez MP-WSPC-WSWH [place] [address] M Work Phone: Comment on above: 04-19-2020 17:14-0500 0 1 Luana Godinez MP-WSPC-WSWH [place] [address] M Work Phone: Comment on above: Para Pain Scale 04-11-2020 17:39-0500 BMI (Body Mass Index) 46.71 kg/m2 Luana Godinez MP-WSPC-WSWH [place] [address] M Work Phone: 04-11-2020 17:39-0500 Body Temperature 97 [degF] Luana Godinez NC-YEPR-YJTG [place] [address] M Work Phone: 04-11-2020 17:39-0500 Body weight 115.84 kg Luana Godinez MP-WSPC-WSWH [place] [address] M Work Phone: 04-11-2020 17:39-0500 BP Diastolic 88 mm[Hg] Luana Godinez MP-WSPC-WSWH [place] [address] M Work Phone: 04-11-2020 17:39-0500 BP Systolic 136 mm[Hg] Luana Godinez MP-WSPC-WSWH [place] [address] M Work Phone: 04-11-2020 17:39-0500 BSA (Body Surface Area) 2.12 m2 Luana Godinez MP-WSPC-WSWH [place] [address] M Work Phone: 04-11-2020 17:39-0500 Height 157.48 cm Luana Godinez MP-WSPC-WSWH [place] [address] M Work Phone: 04-11-2020 17:39-0500 5 1 Luana Godinez MP-WSPC-WSWH [place] [address] M Work Phone: Comment on above: 04-11-2020 17:39-0500 0 1 Luana Godinez MP-WSPC-WSWH [place] [address] M Work Phone: Comment on above: Para Pain Scale 04-04-2020 18:06-0500 BMI (Body Mass Index) 45.36 kg/m2 Luana Godinez MP-WSPC-WSWH [place] [address] M Work Phone: 04-04-2020 18:06-0500 Body Temperature 96.3 [degF] Luana Godinez MP-WSPC-WSWH [place] [address] M Work Phone: 04-04-2020 18:06-0500 Body weight 112.49 kg Luana Godinez MP-WSPC-WSWH [place] [address] M Work Phone: 04-04-2020 18:06-0500 BP Diastolic 88 mm[Hg] Luana Godinez MP-WSPC-WSWH [place] [address] M Work Phone: 04-04-2020 18:06-0500 BP Systolic 130 mm[Hg] Luana Godinez MP-WSPC-WSWH [place] [address] M Work Phone: 04-04-2020 18:06-0500 BSA (Body Surface Area) 2.09 m2 Luana Godinez MP-WSPC-WSWH [place] [address] M Work Phone: 04-04-2020 18:06-0500 Height 157.48 cm Luana Godinez XK-QZHN-SIJE [place] [address] M Work Phone: 04-04-2020 18:06-0500 5 1 Luana Godinez MP-WSPC-WSWH [place] [address] M Work Phone: Comment on above: 04-04-2020 18:06-0500 0 1 Luana Godinez MP-WSPC-WSWH [place] [address]13[address] M Work Phone: Comment on above: Para 03-28-2020 16:34-0500 BMI (Body Mass Index) 44.45 kg/m2 Luana Godinez MP-WSPC-WSWH [place] [address] M Work Phone: 03-28-2020 16:34-0500 Body Temperature 97.6 [degF] Luana Godinez MP-WSPC-WSWH [place] [address] M Work Phone: Comment on above: Method: Temporal 03-28-2020 16:34-0500 Body weight 110.22 kg Luana Godinez MP-WSPC-WSWH [place] [address] M Work Phone: 03-28-2020 16:34-0500 BP Diastolic 84 mm[Hg] Luana Godinez MP-WSPC-WSWH [place] [address] M Work Phone: Comment on above: Location: RUE; Position: Sitting 03-28-2020 16:34-0500 BP Systolic 130 mm[Hg] Luana Godinez EE-KEPX-UYOA [place] [address] M Work Phone: Comment on above: Location: RUE; Position: Sitting 03-28-2020 16:34-0500 BSA (Body Surface Area) 2.08 m2 Luana Godinez KI-SYRS-PLRP [place] [address] M Work Phone: 03-28-2020 16:34-0500 Height 157.48 cm Luana Godinez VB-HVEA-XNNX [place] [address] M Work Phone: 03-28-2020 16:34-0500 5 1 Luana Godinez GH-HFMK-AJTO [place] [address] M Work Phone: Comment on above: 03-28-2020 16:34-0500 0 1 Luana Godinez QT-UHME-NGKT [place] [address] M Work Phone: Comment on above: Pain Scale Para 03-22-2020 15:13-0500 BMI (Body Mass Index) 44.26 kg/m2 Luana Godinez DD-SHQMG-Qmccbc 310 IVF Work Phone: 03-22-2020 15:13-0500 Body Temperature 97.6 [degF] Luana Godinez WX-PEZTY-Kbursu 310 IVF Work Phone: 03-22-2020 15:13-0500 Body weight 109.77 kg Luana Godinez WF-QHZPE-Lzrfox 310 IVF Work Phone: 03-22-2020 15:13-0500 BP Diastolic 80 mm[Hg] Luana Godinez JF-FZFJF-Pxrlxm 310 IVF Work Phone: 03-22-2020 15:13-0500 BP Systolic 140 mm[Hg] Luana Godinez NE-YNSNN-Rinrxw 310 IVF Work Phone: 03-22-2020 15:13-0500 BSA (Body Surface Area) 2.07 m2 Luana Godinez HS-TGZXA-Amcleg 310 IVF Work Phone: 03-22-2020 15:13-0500 Height 157.48 cm Luana Godinez DO-CYLJY-Utojhl 310 IVF Work Phone: 03-22-2020 15:13-0500 0 1 Luana Godinez UZ-ITJAC-Ruqsdo 310 IVF Work Phone: Comment on above: Pain Scale Para 03-22-2020 15:13-0500 5 1 Luana Godinez UK-FRLOY-Cqnvll 310 IVF Work Phone: Comment on above: 03-10-2020 18:36-0500 BMI (Body Mass Index) 43.81 kg/m2 Luana Godinez XP-UUVHV-Xxxcil 310 IVF Work Phone: 03-10-2020 18:36-0500 Body Temperature 97.3 [degF] Luana Godinez ZN-CWSJE-Slzjvk 310 IVF Work Phone: 03-10-2020 18:36-0500 Body weight 108.64 kg Luana Godinez VB-SEKLW-Thohff 310 IVF Work Phone: 03-10-2020 18:36-0500 BP Diastolic 80 mm[Hg] Luana Godinez NB-OGHWU-Lnmvxr 310 IVF Work Phone: 03-10-2020 18:36-0500 BP Systolic 118 mm[Hg] Luana Godinez UN-GKFJO-Jmmiaq 310 IVF Work Phone: 03-10-2020 18:36-0500 BSA (Body Surface Area) 2.06 m2 Luana Godinez RW-GEFRW-Ifwfut 310 IVF Work Phone: 03-10-2020 18:36-0500 Height 157.48 cm Luana Godinez WJ-XZELO-Mxhutj 310 IVF Work Phone: 03-10-2020 18:36-0500 0 1 Luana Godinez AZ-KAKYY-Jcmefg 310 IVF Work Phone: Comment on above: Pain Scale Para 03-10-2020 18:36-0500 5 1 Luana Stevensi XP-LJRGS-Sxyfhv 310 IVF Work Phone: Comment on above: 05-05-2019 17:22-0500 BMI (Body Mass Index) 39.51 kg/m2 Luana Stevensi JG-SHORZ-Moorwr 310 IVF Work Phone: 05-05-2019 17:22-0500 Body Temperature 97.5 [degF] Luana Godinez ZF-VYUVF-Nwckbl 310 IVF Work Phone: 05-05-2019 17:22-0500 Body weight 97.98 kg Luana Godinez JW-IFXCU-Wrmqwo 310 IVF Work Phone: 05-05-2019 17:22-0500 BP Diastolic 80 mm[Hg] Luana Stevensi BR-IGTZI-Bllegf 310 IVF Work Phone: 05-05-2019 17:22-0500 BP Systolic 122 mm[Hg] Luana Stevensi XH-PXQFO-Ofjdgd 310 IVF Work Phone: 05-05-2019 17:22-0500 BSA (Body Surface Area) 1.98 m2 Luana Godinez WH-GKQJJ-Seqele 310 IVF Work Phone: 05-05-2019 17:22-0500 Height 157.48 cm Luana Godinez CF-ZQLKT-Fqxtjs 310 IVF Work Phone: 05-05-2019 17:22-0500 Pulse (Heart Rate) 85 /min Luana Godinez CT-TGPMU-Zllq an 310 IVF Work Phone: 05-05-2019 17:22-0500 4 1 Luana [place]i NN-DFKGD-Llzpyv 310 IVF Work Phone: Comment on above: 05-05-2019 17:22-0500 0 1 Luana [place]i AJ-APTWY-Ycukiq 310 IVF Work Phone: Comment on above: Para Pain Scale Encounters Encounter Date Encounter Type Care Provider Facility Start: 11-17-2023 End: 11-17-[address] [facility] Start: 10-06-2023 End: 10-06-[address] [facility] Start: 09-22-2023 End: 09-22-2023 ambulatory TINO [facility] Start: 09-08-2023 End: 09-08-[address] [facility] Start: 09-08-2023 End: 09-08-2023 ambulatory Miladis Rodriguez MD Facility: [facility] Start: 08-18-2023 End: 08-18-2023 ambulatory Miladis Rodriguez MD Facility: [facility] Start: 08-11-2023 End: 08-11-2023 ambulatory KELSEY [facility] Start: 08-04-2023 End: 08-04-2023 ambulatory Miladis Rodriguez MD Facility: [facility] Start: 07-14-2023 End: 07-14-[address] [facility] Start: 06-23-2023 End: 06-23-[address] [facility] Start: 04-28-2023 End: 04-28-2023 ambulatory Aquiles Escobedo Other [facility] Other Start: 04-28-2023 Telephone encounter Aquiles Escobedo [facility] Start: 03-21-2023 End: 03-21-2023 ambulatory K[facility]SEY [place] [facility]ulatory Start: 12-26-[address] Kelsey De Luna lity:[facility] Mary Wagner Start: 11-27-2022 End: 11-27-2022 ambulatory Aquiles Escobedo Other [facility] Other Start: 11-27-2022 Encounter for genera l adult medical examination without abnormal findings Aquiles GE [facility] Start: 11-27-2022 Periodic preventive med est patient 40-64yrs Aquiles Escobedo [facility] Start: 11-11-[address] Kelsey De Luna lity:[id number] Start: 09-30-[address] Kelsey De Luna lity:[id number] Start: 09-09-[address] Kelsey De Luna lity:[id number] Start: 08-23-2022 End: 08-23-2022 ambulatory Aquiles Escobedo Facility:[facility] Start: 08-19-2022 End: 08-20-2022 Evaluation and management of inpatient Aquiles Escobedo Facility:[facility] Start: 08-13-[address] Kelsey De Luna lity:[facility] Mary Wagner Start: 07-26-2022 End: 07-26-2022 ambulatory PHYSICIAN LEE JIM Facility:[facility] Start: 07-26-2022 End: 07-26-2022 ambulatory DO Tess Rinkes Work Phone: [facility] Work Phone: Start: 07-26-2022 End: 07-26-2022 Departed Referred DO Tess Rinkes Work Phone: [facility] [place] Work Phone: Start: 07-03-2022 End: 07-04-2022 ambulatory TESS SAXENA Facility:[facility] Start: 06-17-[address] Kelsey De Luna lity:[id number] Start: 06-05-2022 End: 06-06-[address] AQUILES ESCOBEDO Facility:[facility] Start: 05-21-[address] Kelsey De Luna lity:[facility] Start: 04-22-[address] Kelsey De Luna lity:[id number] Start: 04-10-2022 End: 04-11-[address] AQUILES ESCOBEDO Facility:[facility] Start: 02-18-[address] Kelsey De Luna lity:[id number] Start: 02-04-2022 End: 02-05-2022 ambulatory TESS SAXENA Facility:[facility] Start: 02-04-2022 Rx Renewal Aquiles mesa Work Phone: [id number] IVF Work Phone: Start: 01-28-[address] Kelsey Gray Facjad lity:[id number] Start: 01-10-2022 Rx Renewal Aquiles mesa Work Phone: [id number] IVF Work Phone: Start: 01-10-2022 Patient encounter procedure Aquiles Chapa Fanny Work Phone: [id number] IVF Work Phone: Start: 01-10-2022 ULTRASOUND, Provider : OBCHACHO SCHROEDER RDMS [id number] 1,[facility], Status: Pen, Time: 3:00 PM Aquiles Chapa Fanny Work Phone: [id number] IVF Work Phone: Start: 01-08-2022 AUDIT Aquiles [place]a Work Phone: [id number] IVF Work Phone: Start: 12-28-2021 AUDIT Aquiles mesa Work Phone: OY-ULOBP-Snbydm 310 IVF Work Phone: Start: 12-28-2021 Office outpatient vi sit 25 minutes Aquiles Escobedo Work Phone: LF-Gqbpspofgq-Wosiixlz 2100 DO Work Phone: Start: 12-21-2021 Chart Update Aquiles mesa Work Phone: PG-GUNBY-Ewievx 310 IVF Work Phone: Start: 12-21-2021 Patient encounter procedure Aquiles Escobedo Work Phone: RW-LDTCA-Ohfgajr 206A IVF Work Phone: Start: 12-11-2021 Patient encounter procedure Aquiles Escobedo Work Phone: CR-IXTXB-Rxeflx 310 IVF Work Phone: Start: 12-04-2021 Patient encounter procedure Aquiles Escobedo Work Phone: MU-SWSHJ-Ejqfao 310 IVF Work Phone: Start: 11-16-2021 AUDIT Auqiles mesa Work Phone: TE-GITSX-Sxagea 310 IVF Work Phone: Start: 11-16-2021 Encounter for genera l adult medical examination without abnormal findings DR AQUILES ESCOBEDO [facility] Start: 11-15-2021 End: 11-16-[address] AQUILES ESCOBEDO Facility:H1 Start: 11-15-2021 End: 11-16-2021 Encounter for general adult medical examination without abnormal findings DR AQUILES ESCOBEDO Facility:H1 Start: 11-02-2021 Rx Renewal Aquiles mesa Work Phone: UO-WGQRX-Ymoonf 310 IVF Work Phone: Start: 10-19-2021 Chart Update Aquiles mesa Work Phone: AO-ZTFYX-Ymawip 310 IVF Work Phone: Start: 10-04-2021 Patient encounter procedure Aquiles Escobedo Work Phone: FM-RIQJF-Qgjwqc 310 IVF Work Phone: Start: 09-21-2021 Patient encounter procedure Aquiles Escobedo Work Phone: II-PAXCN-Kilxdo 320 Work Phone: Start: 09-12-2021 Chart Update Aquiles mesa Work Phone: GN-HCJSU-Agspix 310 IVF Work Phone: Start: 09-10-2021 Chart Update Aquiles mesa Work Phone: RA-MYCLP-Yfuqqpt 206A IVF Work Phone: Start: 09-10-2021 Patient encounter procedure Aquiles Escobedo Work Phone: PE-YJJRU-Ygvsbs 310 IVF Work Phone: Start: 09-01-2021 AUDIT Aquiles Coburn l Work Phone: MP-Reproductive Endocrinology-[place] 206 Work Phone: Start: 08-31-2021 Patient encounter procedure Aquiles Escobedo Work Phone: PA-PREGN-Mwxuswf 206A IVF Work Phone: Start: 07-27-2021 Chart Update Aquiles Coburn l Work Phone: UC-KKWTQ-Vdirqf 310 IVF Work Phone: Start: 07-26-2021 AUDIT Aquiles Coburn l Work Phone: QI-DQMLW-Dcmuppx 206A IVF Work Phone: Start: 06-26-2021 Image Encounter Aquiles mesa Work Phone: zz DO NOT USE - [employer] Only Start: 06-18-2021 AUDIT Aquiles mesa Work Phone: YA-Zstyzuctzd-Yygdsm Work Phone: Start: 06-15-2021 Office outpatient vi sit 25 minutes Aquiles Escobedo Work Phone: OJ-DHJUU-Fjjhqnh 206A IVF Work Phone: Start: 06-15-2021 VIRFUVCORNELLE, Provider : Zari Oviedo, Status: Pen, Time: 1:30 PM Aquiles Escobedo Work Phone: LQ-Vfnfcdhhek-Ffiakq Work Phone: Start: 06-14-2021 Chart Update Aquiles Coburn l Work Phone: BG-Fypejeovld-Pxsvlv Work Phone: Start: 06-12-2021 Chart Update Aquiles Coburn l Work Phone: UY-Afdzezkzdu-Nbcjmsjy 2100 DO Work Phone: Start: 06-11-2021 Chart Update Aquiles Chapa Almas l Work Phone: AM-Eguhpmjzgp-Wupfgdcr 2100 DO Work Phone: Start: 05-22-2021 Chart Update Aquiles Chapa Almas mesa Work Phone: NL-Uhfzlipxkv-Btusqhxk 2100 DO Work Phone: Start: 04-24-2021 Office consultation new/estab patient 60 min Aquiles Escobedo Work Phone: YY-Ximshpyexh-Exgrnnsj 2100 DO Work Phone: Start: 04-24-2021 Patient encounter procedure Aquiles Escobedo Work Phone: CN-Ulscmnzbti-Fdmpiskg 2100 DO Work Phone: Start: 02-20-2021 AUDIT Aquiles Eduard Coburn bonita Work Phone: RO-Ckiruunjjjqmgx-Nfpd field Work Phone: Start: 02-15-2021 Chart Update Aquiles mesa Work Phone: RE-Tsrkdxifgxprfy-Yyvt field Work Phone: Start: 01-31-2021 Patient encounter procedure Aquiles Escobedo Work Phone: CI-Dxcqnpwopmsrry-Kuqx field Work Phone: Start: 05-04-2020 Patient encounter procedure Luana Godinez PH-CUDN-QJMS [place] [address] M Work Phone: Start: 05-02-2020 Patient encounter procedure Luana Godinez GD-RUYI-UUQB [place] [address] M Work Phone: Start: 04-28-2020 Patient encounter procedure Luana Godinez SM-OINM-CPOO [place] [address] M Work Phone: Start: 04-26-2020 Patient encounter procedure Luana Godinez AW-GMGX-HBIR [place] [address] M Work Phone: Start: 04-19-2020 Patient encounter procedure Luana Godinez YH-VGVF-BRZI [place] [address] M Work Phone: Start: 04-11-2020 Patient encounter procedure Luana Godinez SL-QFJE-KBUA [place] [address] M Work Phone: Start: 04-04-2020 Patient encounter procedure Luana Godinez MP-WSPC-WSWH [place] [address] M Work Phone: Start: 03-28-2020 Patient encounter procedure Lunaa Godinez MP-WSPC-WSWH [place] [address] M Work Phone: Start: 03-22-2020 Patient encounter procedure Luana Godinez LG-DTFCX-Vtwtqd 310 IVF Work Phone: Start: 03-10-2020 Patient encounter procedure Luana Godinez ZW-ELOVT-Ehcbch 310 IVF Work Phone: Start: 02-08-2020 Patient encounter procedure Luana Godinez AM-YFLMQ-Mzhujz 310 IVF Work Phone: Start: 01-11-2020 Patient encounter procedure Luana Godinez WN-VVWJH-Dvxtvk 310 IVF Work Phone: Start: 01-07-2020 Patient encounter procedure Luana Godinez PH-MTTQU-Nxwyet 310 IVF Work Phone: Start: 12-17-2019 Patient encounter procedure Luana Godinez VB-HZLLX-Mbjycs 310 IVF Work Phone: Start: 12-01-2019 Patient encounter procedure Luana Godinez UX-RUJVG-Cnfzyz 310 IVF Work Phone: Start: 11-23-2019 Patient encounter procedure Luana Godinez KC-LWJQY-Ephbyp 310 IVF Work Phone: Start: 11-17-2019 Patient encounter procedure Luana Godinez ER-AIAAQ-Qykbtk 310 IVF Work Phone: Start: 11-16-2019 Patient encounter procedure Luana Godinez TX-DRVRM-Sporal 310 IVF Work Phone: Start: 11-09-2019 Patient encounter procedure Luana Godinez OO-RABQT-Sjunvu 310 IVF Work Phone: Start: 11-03-2019 Patient encounter procedure Luana Godinez XM-RENHS-Moovsv 310 IVF Work Phone: Start: 11-01-2019 Patient encounter procedure Luana Godinez HO-JRUKY-Xdpcgl 310 IVF Work Phone: Start: 10-21-2019 Patient encounter procedure Luana Godinez BQ-CSUEI-Irzzfi 310 IVF Work Phone: Start: 10-13-2019 Patient encounter procedure Luana Godinez DS-OFCQW-Lzmhbv 310 IVF Work Phone: Start: 10-04-2019 Patient encounter procedure Luana Godinez EB-ECGWD-Kyncsm 310 IVF Work Phone: Start: 10-01-2019 Patient encounter procedure Luana Godinez UF-DVERB-Ukvenw 310 IVF Work Phone: Start: 09-30-2019 Patient encounter procedure Luana Godinez MU-OASXS-Mifhuw 310 IVF Work Phone: Start: 09-20-2019 Patient encounter procedure Luana Godinez QH-ALCJZ-Yhjohm 310 IVF Work Phone: Start: 09-08-2019 Patient encounter procedure Luana Godinez IU-QMSIG-Apsguv 310 IVF Work Phone: Start: 09-02-2019 Patient encounter procedure Luana Godinez MP-FELAW-Fmhgwy 310 IVF Work Phone: Start: 06-22-2019 Patient encounter procedure Luana Godinez KR-RXCLL-Peecii 310 IVF Work Phone: Start: 05-25-2019 Patient encounter procedure Luana Godinez MP-Reproductive Endocrinology-[place] Work Phone: Start: 05-05-2019 Patient encounter procedure Luana Godinez DG-NQAZS-Sopyzt 310 IVF Work Phone: Start: 04-09-2019 Patient encounter procedure Luana Godinez XP-ITDAX-Okjytr 310 IVF Work Phone: Start: 03-25-2019 Patient encounter procedure Luana Godinez MC-WUJDG-Hqengc 310 IVF Work Phone: Start: 03-15-2019 Patient encounter procedure Luana Godinez QQ-UESJX-Eaepfu 310 IVF Work Phone: Start: 03-02-2019 Patient encounter procedure Luana Godinez FZ-OGMGT-Plclif 310 IVF Work Phone: Start: 02-05-2019 Patient encounter procedure Luana Godinez RH-DALQO-Vtmmey 310 IVF Work Phone: Start: 02-02-2019 Patient encounter procedure Luana Godinez HP-PIIWR-Dzmbjv 310 IVF Work Phone: Start: 01-21-2019 Patient encounter procedure Luana Godinez YO-DBEYP-Mogktt 310 IVF Work Phone: Start: 12-08-2018 Patient encounter procedure Luana Godinez BC-BQTBG-Mfatjg 310 IVF Work Phone: Start: 11-02-2018 Patient encounter procedure Luana Godinez VV-MEJYA-Ayoyij 310 IVF Work Phone: Start: 10-30-2018 Patient encounter procedure Luana Godinez HK-TPKPN-Qrkcdp 310 IVF Work Phone: Start: 10-26-2018 Patient encounter procedure Luana Godinez DY-RZSBF-Pggssu 310 IVF Work Phone: Start: 10-15-2018 Patient encounter procedure Luana Godinez XE-EXZLU-Xaxkes 310 IVF Work Phone: Start: 09-28-2018 Patient encounter procedure Luana Godinez KO-JWPQR-Otlyae 310 IVF Work Phone: Start: 09-16-2018 Patient encounter procedure Luana Godinez MQ-GJXSW-Xsntkk 310 IVF Work Phone: Start: 09-08-2018 Patient encounter procedure Luana Godinez BV-FSLMC-Nyfpea 310 IVF Work Phone: Start: 08-17-2018 Patient encounter procedure Luana Godinez ID-WRGZL-Jaelnn 310 IVF Work Phone: Start: 07-14-2018 Patient encounter procedure Luana Morin MP-Reproductive Endocrinology-[place] 206 Work Phone: Start: 07-03-2018 Patient encounter procedure Luana Morin MP-Reproductive Endocrinology-[place] 206 Work Phone: Start: 06-11-2018 Patient encounter procedure Luana Morin MP-Reproductive Endocrinology-[place] 206 Work Phone: Start: 03-09-2018 Patient encounter procedure Luana Morin MP-Reproductive Endocrinology-[place] 206 Work Phone: Start: 02-27-2018 Patient encounter procedure Christopher S Subhash Facility:[facility] Start: 02-21-2018 Patient encounter procedure Luana Morin MP-Reproductive Endocrinology-[place] 206 Work Phone: Start: 02-11-2018 Patient encounter procedure Luana Morin MP-Reproductive Endocrinology-[place] 206 Work Phone: Start: 02-09-2018 Patient encounter procedure Luana Morin MP-Reproductive Endocrinology-[place] 206 Work Phone: Start: 02-07-2018 Patient encounter procedure Luana Morin MP-Reproductive Endocrinology-[place] 206 Work Phone: Start: 02-05-2018 Patient encounter procedure Luana Morin MP-Reproductive Endocrinology-[place] 206 Work Phone: Start: 12-26-2017 Patient encounter procedure Luana Morin MP-Reproductive Endocrinology-[place] 206 Work Phone: Start: 07-31-2017 Patient encounter procedure Christopher S Subhash Facility:[facility] Start: 07-30-2017 Patient encounter procedure Christopher S Subhash Facility:[facility] Start: 07-28-2017 Patient encounter procedure Christopher S Subhash Facility:[facility] Start: 06-11-2017 Patient encounter procedure Luana Morin MP-Reproductive Endocrinology-[place] 206 Work Phone: Start: 06-10-2017 Patient encounter procedure Luana Morin MP-Reproductive Endocrinology-[place] 206 Work Phone: Start: 06-04-2017 Patient encounter procedure Luana Morin MP-Reproductive Endocrinology-[place] 206 Work Phone: Start: 06-02-2017 Patient encounter procedure Luana Morin MP-Reproductive Endocrinology-[place] 206 Work Phone: Start: 05-27-2017 Patient encounter procedure Luana Morin MP-Reproductive Endocrinology-[place] 206 Work Phone: Start: 05-06-2017 Patient encounter procedure Luana Morin MP-Reproductive Endocrinology-[place] 206 Work Phone: Start: 04-22-2017 Patient encounter procedure Luana Morin MP-Reproductive Endocrinology-[place] 206 Work Phone: Start: 04-01-2017 Patient encounter procedure Luana Morin MP-Reproductive Endocrinology-[place] 206 Work Phone: Start: 03-21-2017 Patient encounter procedure Luana Morin MP-Reproductive Endocrinology-[place] 206 Work Phone: Start: 03-19-2017 Patient encounter procedure Luana Morin MP-Reproductive Endocrinology-[place] 206 Work Phone: Start: 03-13-2017 Patient encounter procedure Luana Morin MP-Reproductive Endocrinology-[place] 206 Work Phone: Start: 01-30-2017 Patient encounter procedure Luana Morin MP-Reproductive Endocrinology-[place] 206 Work Phone: Start: 01-16-2017 Patient encounter procedure Luana Morin MP-Reproductive Endocrinology-[place] 206 Work Phone: Start: 01-02-2017 Patient encounter procedure Luana Morin MP-Reproductive Endocrinology-[place] 206 Work Phone: Start: 12-27-2016 Patient encounter procedure Luana Morin MP-Reproductive Endocrinology-[place] 206 Work Phone: Start: 12-19-2016 Patient encounter procedure Luana Morin MP-Reproductive Endocrinology-[place] 206 Work Phone: Start: 12-16-2016 Patient encounter procedure Luana Morin MP-Reproductive Endocrinology-[place] 206 Work Phone: Start: 12-14-2016 Patient encounter procedure Luana Morin MP-Reproductive Endocrinology-[place] 206 Work Phone: Start: 12-12-2016 Patient encounter procedure Luana Morin MP-Reproductive Endocrinology-[place] 206 Work Phone: Start: 12-10-2016 Patient encounter procedure Luana Morin MP-Reproductive Endocrinology-[place] 206 Work Phone: Start: 12-03-2016 Patient encounter procedure Luana Morin MP-Reproductive Endocrinology-[place] 206 Work Phone: Procedures Date Procedure Procedure Detail Performing Clinician Start: 09-08-2023 End: 09-08-2023 Psychotherapy w/patient 60 minutes Recurrent major depressive disorder, in partial remission (CMS-HCC) Kelsey Gray PhD Work Phone: Comment on above: Recurrent major depr essive disorder, in partial remission (CMS-HCC) (Primary Dx) Start: 08-11-2023 End: 08-11-2023 Psychotherapy w/patient 60 minutes Recurrent major depressive disorder, in partial remission (CMS-HCC) Kelsey Gray PhD Work Phone: Comment on above: Recurrent major depr essive disorder, in partial remission (CMS-HCC) (Primary Dx) Start: 12-26-2022 Psychotherapy w/aylin ent 60 minutes Aquiles E Ball Work Phone: Start: 11-11-2022 Psychotherapy w/aylin ent 60 minutes Aquiles E Ball Work Phone: Start: 09-30-2022 Psychotherapy w/aylin ent 60 minutes Aquiles E Ball Work Phone: Start: 08-19-2022 Antibody screen PHYSICI AN NO FAMILY Comment on above: Result Comment: PERF ORMED BY: [facility] [address] PATHOLOGIST LOGISTICS TEAM LEAD RENETTA CASE M.D. Start: 06-17-2022 Psychotherapy w/aylin ent 60 minutes Aquiles E Ball Work Phone: Start: 05-21-2022 Psychotherapy w/aylin ent 60 minutes Aquiles E Ball Work Phone: Start: 04-22-2022 Psychotherapy w/aylin ent 60 minutes Aquiles E Ball Work Phone: Start: 02-18-2022 Psychotherapy w/aylin ent 60 minutes Aquiels E Ball Work Phone: Start: 01-28-2022 Psychotherapy [...] with Crohn's disease.; History of Foot Surgery Andres Morin Operation on gallbladder Bro eitan Morin Plan of Treatment Date Care Activity Detail Author Start: 04-27-2030 Screening for malign ant neoplasm of colon [facility] Start: 03-10-2030 DTaP/Tdap/Td Vaccine s (2 - Td or Tdap) DTaP/Tdap/Td Vaccines (2 - Td or Tdap) [facility] Start: 10-04-2024 Screening for malign ant neoplasm of cervix [facility] Start: 08-30-2024 Diabetes mellitus screening Diabetes Screening [facility] Start: 03-05-2024 End: 03-05-2024 Telemedicine consultation with patient 03/05/2024 1:00 PM EST Telemedicine [facility] [place] [address] Margot Muñoz [address] [address] [place] [address] Margot Muñoz 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[place] [address] [facility] [place] Start: 01-30-2024 End: 01-30-2024 Telemedicine consultation with patient 01/30/2024 1:00 PM EDT [facility] [address] Margot Muñoz [address] [address] [place] [address] Margot Muñoz 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 [address] [facility] Start: 01-02-2024 End: 01-02-2024 Telemedicine consultation with patient 01/02/2024 1:00 PM EDT Telemedicine [facility] [place] [address] Margot Muñoz [address] [address] [place] [address] Margot Muñoz 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 [address] [facility] Start: 12-08-2023 End: 12-08-2023 Telemedicine consultation with patient 12/08/2023 1:00 PM EDT Telemedicine [address] [phone] [place] [address] Margot Muñoz 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[place] [address] [facility] Start: 11-07-2023 End: 11-07-2023 Telemedicine consultation with patient 11/07/2023 1:00 PM EDT Telemedicine [facility] [place] [address] Margot Muñoz [address] [address] [place] [address] Margot Muñoz 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[place] [address] [facility] Start: 10-06-2023 End: 10-06-2023 Telemedicine consultation with patient 10/06/2023 8:00 AM EDT Telemedicine [place] [address] [place] [phone] [place] [address] Margot Muñoz 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[place] [address] [facility] Sunita Morel Start: 09-22-2023 End: 09-22-2023 Patient encounter procedure 09/22/2023 11:00 AM EDT Office Visit [facility] [facility] [address] [place] [phone] [place] [address] Margot Muñoz Department [place] [address] [facility] Start: 09-08-2023 End: 09-08-2023 Telemedicine consultation with patient 09/08/2023 1:00 PM EDT Telemedicine [facility] Risjayesh [place] [address] [place] [phone] [place] [address] Margot Muñoz 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[place] [address] [facility] Sunita Morel Start: 11-29-2022 COVID-19 Vaccine () COVID-19 Vaccine () [facility] Start: 07-26-2022 Group B Streptococcu s Culture Group B Streptococcus Culture [facility] Start: 06-07-2022 FUV, Provider: Flakita Antonio, Status: Pen, Time: 8:45 AM FUV, Provider: Flakita Antonio, Status: Pen, Time: 8:45 AM CD-Zlanawhcvq-Clztq tim 2100 DO Work Phone: Start: 04-26-2022 Pneumococcal Vaccine : Pediatrics (0 to 5 Years) and At-Risk Patients (6 to 64 Years) (2 of 2 - PCV) Pneumococcal Vaccine: Pediatrics (0 to 5 Years) and At-Risk Patients (6 to 64 Years) (2 of 2 - PCV) [facility] Start: 01-10-2022 ULTRASOUND, Provider : OBGYCaroline IVF RDMS CRUROS91 1,[facility] O[facility], Status: Pen, Time: 1:30 PM ULTRASOUND, Provider: OBGYCaroline IVF RDMS [id number] 1,[facility] OBG[facility], Status: Pen, Time: 1:30 PM GG-Neybbjhmzg-Axxzr tim 2100 DO Work Phone: Start: 12-28-2021 RNVISIT, Provider: I VF RAYNA ZAPATA, Status: Pen, Time: 8:00 AM RNVISIT, Provider: IVF RAYNA ZAPATA, Status: Pen, Time: 8:00 AM ZR-BOZSC-Ckyarop 206A IVF Work Phone: Start: 12-21-2021 RNVISIT, Provider: I VF RAYNA ZAPATA, Status: Pen, Time: 8:00 AM RNVISIT, Provider: IVF NURSE CIELO WAGNEROB, Status: Pen, Time: 8:00 AM XQ-THNTQ-Uuaupf 310 IVF Work Phone: Start: 12-04-2021 ULTRALAB, Provider: OBGYN IVF RDMS BERNARD 1,[facility] O[facility], Status: Pen, Time: 7:40 AM ULTRALAB, Provider: OBGYN IVF RDMS BERNARD 1,[facility] OBG[facility], Status: Pen, Time: 7:40 AM BZ-AUMKB-Urrpsd 310 IVF Work Phone: Start: 10-04-2021 HYSTEROSPY, Provider : Lon Johnson, Status: Pen, Time: 2:00 PM HYSTEROSPY, Provider: Lon Johnson, Status: Pen, Time: 2:00 PM PP-CXJXQ-Iepyrg 320 Work Phone: Start: 09-21-2021 FUVREI, Provider: Zari Oviedo, Status: Pen, Time: 11:00 AM FUVREI, Provider: Zari Oviedo, Status: Pen, Time: 11:00 AM VX-HFKDP-Egoqeuh 206A IVF Work Phone: Start: 09-10-2021 RNVISIT, Provider: I VF NURSE RAYNA WAGNER, Status: Pen, Time: 6:50 AM RNVISIT, Provider: ALEXANDRE NURSE RAYNA WAGNER, Status: Pen, Time: 6:50 AM IU-GWPPC-Ayuseok 206A IVF Work Phone: Start: 07-17-2021 FUV, Provider: Flakita Antonio, Status: Pen, Time: 3:45 PM FUV, Provider: Flakita Antonio, Status: Pen, Time: 3:45 PM KM-Jjkxyqjgnj-Nnozs a Work Phone: Start: 06-15-2021 VIRFUVHOME, Provider : Zari Oviedo, Status: Pen, Time: 1:30 PM VIRFUVHOME, Provider: Zari Oviedo, Status: Pen, Time: 1:30 PM QQ-Eieooyebxw-Kkrxr tim 2100 DO Work Phone: Start: 06-15-2021 FUV, Provider: Flakita Antonio, Status: Pen, Time: 7:45 AM FUV, Provider: Flakita Antonio, Status: Pen, Time: 7:45 AM KK-Kpwtwcrhwj-Pejbl tim 2100 DO Work Phone: Start: 05-22-2021 FUV, Provider: Flakita Antonio, Status: Pen, Time: 3:45 PM FUV, Provider: Flakita Antonio, Status: Pen, Time: 3:45 PM Kristofer dumont 2100 DO Work Phone: Start: 04-24-2021 NPVRFRL, Provider: Flakita Antonio, Status: Pen, Time: 3:00 PM NPVRFRL, Provider: Flakita Antonio, Status: Pen, Time: 3:00 PM [facility] Work Phone: Start: 07-29-2019 Screening for malign ant neoplasm of breast Mammogram [facility] Start: 1999 Screening for malign ant neoplasm of cervix HPV/Cotest [facility] Start: 1997 Hepatitis B Vaccines (1 of 3 - 19+ 3-dose series) Hepatitis B Vaccines (1 of 3 - 19+ 3-dose series) [facility] Start: 1997 Zoster Vaccines (1 o f 2) Zoster Vaccines (1 of 2) [facility] Start: 1978 Lipid panel Lipid Panel [facility] Start: 1978 Screening for malign ant neoplasm of colon [facility] Start: 1978 [facility]ly Adult [facility] CD-SVTNA-Czsodp 310 IVF Work Phone: NEGATED: Highlighted row has been ruled out! Planned Goals not documented UI-QMNMH-Akphql 310 IVF Work Phone: Immunizations Immunization Date Immunization Notes Care Provider So thurman 04-26-2021 pneumococcal polysaccharide vaccine, 23 valent Aquiles Escobedo Other [employer] Other 04-24-2021 Pneumococcal polysaccharide vaccine, 23 valent Aquiles Escobedo Work Phone: Demian chapa 2099 DO Work Phone: 06-29-2020 COVID-19 mRNA, Comirnaty (Pfizer) [facility] 06-09-2020 COVID-19 mRNA, Comirnaty (Pfizer) [facility] 03-10-2020 tetanus toxoid, redu rachel diphtheria toxoid, and acellular pertussis vaccine, adsorbed; Translations: [Tdap (Adacel)] Luana Godinez SJ-OZXKQ-Lxyurl 310 IVF Work Phone: Comment on above: Series: Payers Date Payer Category Payer Self-pay [id number] 2022 Unknown 2022 Unknown [id number] 2019 Unknown [id number] 1978 Unknown [id number] 2.16.84 0.1.285754.3.579.2.593 1978 Unknown [id number] 2.16.84 0.1.260817.3.579.2.593 1978 Unknown [id number] 2.16.84 0.1.709820.3.579.2.593 1978 Unknown [id number] 2.16.84 0.1.186079.3.579.2.593 1978 Unknown [id number] 2.16.84 0.1.892479.3.579.2.593 1978 Unknown [id number] 2.16. 840.1.960306.3.579.2.356 1978 Unknown [id number] 2.. 840.1.841292.3.579.2.356 1978 Unknown [id number] 2.16. 840.1.139105.3.579.2.356 1978 Unknown [id number] 2.16. 840.1.453933.3.579.2.356 1978 Unknown [id number] 2.16. 840.1.016084.3.579.2.356 1978 Unknown [id number] 2.16. 840.1.326091.3.579.2.356 1978 Unknown [id number] 2.16. 840.1.206110.3.579.2.356 1978 Unknown [id number] 2.16. 840.1.460098.3.579.2.356 1978 Unknown [id number] 2.16. 840.1.428562.3.579.2.356 1978 Unknown [id number] 2.16. 840.1.012837.3.579.2.356 1978 Unknown [id number] 2.16.8 40.1.472087.3.579.2.1244 1978 Unknown [id number] 2.16. 840.1.198802.3.579.2.196 1978 Unknown [id number] 2.16. 840.1.406590.3.579.2.196 1978 Unknown [id number] 2.. 840.1.930577.3.579.2.196 1978 Unknown [id number] 2.16.8 40.1.421058.3.579.2.1245 1978 Unknown [id number] 2.16.8 40.1.066548.3.579.2.1245 1978 Unknown [id number] 2.16.8 40.1.467841.3.579.2.1245 1978 Unknown [id number] 2.16.8 40.1.164156.3.579.2.1245 1978 Unknown [id number] 2.16.8 40.1.118669.3.579.2.1245 1978 Unknown [id number] 2.16.8 40.1.106389.3.579.2.1244 1978 Unknown [id number] 2.16.8 40.1.100754.3.579.2.1245 Unknown [id number] Unknown [id number] 2.16.8 40.1.252788.3.579.2.243 Unknown [id number] 2.16.8 40.1.695440.3.579.2.243 Unknown [id number] 2.16.8 40.1.537870.3.579.2.243 Unknown [id number] 2.16.8 40.1.688566.3.579.2.243 Unknown [id number] 2.16.8 40.1.877768.3.579.2.531 Unknown [id number] 2.16.8 40.1.514583.3.579.2.531 Unknown [id number] 2.16.8 40.1.449364.3.579.2.531 Social History Date Type Detail Facility Never a smoker Never a smoker -YAHIR Garay [facility] 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; 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1980 Sex Assigned At Female [facility] Start: 07-23-2017 Tobacco smoking status [facility] Never smoked tobacco (finding) [facility] Sex Assigned At [employer] Other Tobacco smoking status [facility] Tobacco smoking consumption unknown [facility] Work Phone: Start: 1980 Sex assigned at Not on file [facility] Work Phone: Start: 07-04-2023 End: 09-08-2023 Exposure to SARS-CoV-2 (event) Not sure [facility] NEGATED: Highlighted row - Never smoker [facility] 206 Work Phone: Medical Equipment Procedure Code Equipment Code Equipment Original Text Equipment Identifier Dates Iconix Speed Branch 2.3 Mm 2 Strands 2.0mm Xbraid Tt Suture Tape Case [id number] Start: 06-11-2019 Comment on above: Description: Convert ed from [facility]. Please see archived information for full log information. Reel Stt 4.5 Mm Branch Case [id number] Start: 06-11-2019 Comment on above: Description: Convert ed from [facility]. Please see archived information for full log information. [employer]ix Speed Branch 2.3 Mm 2 Strands 2.0 Mm Xbraid Tt Suture Tape Case [id number] Start: 06-11-2019 Comment on above: Description: Convert ed from [facility]. Please see archived information for full log information. Functional Status Date Assessment Result Facility NEGATED: Highlighted row Functional performance Functional status health issues are not documented Disease [facility] Work Phone: Mental Status Date Assessment Result Facility NEGATED: Highlighted row Cognitive function [Interpretation] Cognitive status health issues are not documented Disease [facility] 206 Work Phone: Clinical Notes 11-29-2020 to [...] treatment Continue healthy diet, exercise, keep active [employer] Other 04-17-2022 History of Present illness Narrative* Patient is a 41 year old female who presents with history of infertility. * Patient of Dr. 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 * Verbal consent was requested and obtained from WILD YI on this date, 06/15/2021 01:30 PM , for a telehealth visit. * The patient is being seen today for a Follow Up Visit; patient desires another . [facility] Work Phone: 1(750) 402-337501-25-2022 History of Present illness Narrative* Since last [...] Dr. Maldonado. 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 YO-Pprkqxvrtu-Nukldnlv 2100 DO Work Phone: 1(990) 982-896709-01-2021 History of Present illness Narrative* WILD YI [...] intermittent diarrhea. 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 AH-Qgipfctael-Jqbfheid 2099 DO Work Phone: 1(816) 286-292909-01-2021 History of Present illness Narrative* WILD YI [...] intermittent diarrhea. 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 NZ-Otrqoxdqvd-Xjezhlck 2100 DO Work Phone: 1(241) 640-513709-01-2021 History of Present illness Narrative* WILD YI [...] intermittent diarrhea. 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 RM-Mxczdyzplg-Ayidyiha 2100 DO Work Phone: Evaluation noteNo assessment information available [facility] Work Phone: Evaluation noteNo InformationNort Modacruz Other Evaluation note* Diagnosis Recurrent major depressive disorder, in partial remission (CMS-HCC)- Primary documented in this encounter [facility] Work Phone: History general Narrative - Reported* Type Description Date Medical History Generalized anxiety disorder Medical History Major depressive disorder, recur rent, mild Medical History Crohn's disease of small intesti ne without complications Medical History Other specified hypothyroidism Surgical History laparoscopy Surgical History cholecystectomy Surgical History foot surgery Hospitalization History see above surgical histo ry [employer] Other Summary Purpose Family History No Family [...] Family history of bir th defect: Family History(9.5, Z82.79) Status: Family history of malignant neoplasm of female breast: Paternal Aunt(V16.3, Z80.3) Status:Active No pertinent family history: Mother, Father(V49.89, Z78.9) Status:Active Denies Family history of men pattie retardation: Multiple Family Members(V18.4, Z81.0) Status: Unknown Family Member Name Dates Details Family history of malignant neoplasm of female breast: Paternal Aunt(V16.3, Z80.3) Status:Active Denies Family history of bir th defect: Family History(9.5, Z82.79) Status: No pertinent family history: Mother, Father(V49.89, Z78.9) Status:Active Denies Family history of men pattie retardation: Multiple Family Members(V18.4, Z81.0) Status: Unknown Family Member Name Dates Details Family history of malignant neoplasm of female breast: Paternal Aunt(V16.3, Z80.3) Status:Active Denies Family history of bir th defect: Family History(9.5, Z82.79) Status: Denies Family history of men [...] Date/ Time Advance Directives No July 23, 018 2:26pm Procedure Findings Note Post Operative Note: PreOp D iagnosis: Haglunds deformity, Left achilles tendinopathy, Left Post-Procedure Diagnosis: same Procedure: 1. Left tendon detachment reattachment 2. Left resection of calcaneal spur 3. Injection PRP Surgeon: Christopher Harris Resident/Fellow/Other Senior Web Architect: Cruz Robles, PGY-3, Jayne Martin, PGY-1 Anesthesia: [...] section and content) DATE CREATED AUTHOR [facility] DATE CREATED AUTHOR AUTHOR'S ORGANIZ ATION 07/06/2019 [facility] DATE CREATED AUTHOR AUTHOR'S ORGANIZ ATION 10/17/2019 [facility]ly named [facility] DATE CREATED AUTHOR AUTHOR'S ORGANIZ ATION 03/28/2020 [facility] DATE CREATED AUTHOR AUTHOR'S ORGANIZ ATION 01/01/2022 [facility] DATE CREATED AUTHOR AUTHOR'S ORGANIZ ATION 07/12/2022 [facility] DATE CREATED AUTHOR AUTHOR'S ORGANIZ ATION 09/06/2022 [facility] DATE CREATED AUTHOR AUTHOR'S ORGANIZ ATION 01/14/2023 [facility] DATE CREATED AUTHOR AUTHOR'S ORGANIZ ATION 03/23/2023 [facility] DATE CREATED AUTHOR AUTHOR'S ORGANIZ ATION 09/17/2023 [facility] DATE CREATED AUTHOR AUTHOR'S ORGANIZ ATION 11/18/2023 [facility] Goals (unrecognized section and content) Goals may be documented in a n alternate sectionGoals may be documented in an alternate sectionNo InformationNo Information Care Teams (unrecognized sec tion and content) Team Status: Inactive Member Role Status Dates Tess Saxena DO Attending Provider Active Leaf Blender Relationship Specialty Start Date End Date Generic Provider, [place] [address] PCP - General Networker 07/14/23 REASON FOR VISIT (unrecogniz ed section [...] BE BASED ON THE PRIMARY CLINICAL RECORDS. [facility] [employer] provides no warranty or guarantee of the accuracy or completeness of information in this document.
[2023-11-26 10:59] LABS: Anion Gap 13.2; Carbon Dioxide 26.9 mmol/L (21.0-32.0); Chloride 103 mmol/L (98-107); Potassium 4.1 mmol/L (3.5-5.1); Sodium 139 mmol/L (136-145)
[2023-11-26 11:00] LABS: Aspartate Amino Transferase 15 U/L (15-37); BUN Creatinine Ratio 26.2; Bilirubin Total 0.5 mg/dL (0.2-1.0); Calcium 8.7 mg/dL (8.5-10.1); Estimated GFR (African America >60 (>=60); Estimated GFR (Non-African Ame >60 (>=60); Glucose 93 mg/dL (74-106)
[2023-11-26 11:01] LABS: Alanine Aminotransferase 23 U/L (14-59); Albumin Globulin Ratio 1.2; Albumin Level 3.6 g/dL (3.4-5.0); Alkaline Phosphatase 58 U/L (46-116); Cholesterol 226 mg/dL (<=200); HDL Cholesterol 65 mg/dL (40-60); Total Protein 6.6 g/dL (6.4-8.2); Triglycerides 64 mg/dL (<=150); VLDL CHOLESTEROL 12.8 mg/dL
[2023-11-26 11:02] LABS: Chol HDL Ratio 3.5; Thyroid Stimulating Hormone 3.032 uIU/mL (0.358-3.740)
[2023-11-26 11:34] LABS: Estimated Average Glucose 94 mg/dL; Glycohemoglobin A1C 4.9 % (4.5-6.2)
== END 2023-11-26 09:56 | disposition home or self-care (01) ==
LOC: LAB 09:55
PROVIDERS: PCP Internal Medicine; Visit Provider Internal Medicine
DX: Z00.00 Encounter for general adult medical examination without abnormal findings (principal)
CPT/HCPCS: 36415; 80053; 80061; 83036; 84443; 85025

== ENCOUNTER 2024-10-05 14:01 | Outpatient (OUT) | payer BC, SELFPAY ==
--- OUTSIDE RECORDS SUMMARY | 2024-09-13 12:47 | XMS_ITS ---
Author Name Auto Generated Organization [facility] Care Team Providers Care Interim Controller Name Role Phone ISAAC, MIRANDA L Attending Unavailable ISAAC, MIRANDA L Referring Unavailable GENERIC PROVIDER, NO ASSIGNED PCP Primary Care Unavailable JEREMY OCONNOR Attending Unavailable ISAAC, MIRANDA L Attending Unavailable ISAAC, MIRANDA L Referring Unavailable GENERIC PROVIDER, NO ASSIGNED PCP Primary Care Unavailable ISAAC, MIRANDA L Attending Unavailable ISAAC, MIRANDA L Referring Unavailable GENERIC PROVIDER, NO ASSIGNED PCP Primary Care Unavailable ISAAC, MIRANDA L Attending Unavailable GENERIC PROVIDER, NO ASSIGNED PCP Primary Care Unavailable ISAAC, MIRANDA L Attending Unavailable GENERIC PROVIDER, NO ASSIGNED PCP Primary Care Unavailable ISAAC, MIRANDA L Attending Unavailable GENERIC PROVIDER, NO ASSIGNED PCP Primary Care Unavailable ISAAC, MIRANDA L Attending Unavailable ISAAC, MIRANDA L Attending Unavailable PROBLEMS No Problem Records Found PROCEDURES No Procedure Records Found RESULTS No Result Records Found ALLERGIES DATE TYPE / CODE NAME / CODE REACTION SEVERITY SOURCE [facility]/[id number](SNOMED CT) ALLERGIES NOT ON FILE [facility] ENCOUNTERS ADMIT/DISCHARGE ACCOUNT NUMBER ADMITTING ENCOUNTER CLASS LOCATION SOURCE 09/13/2024/ 5 [id number] Ambulatory Building:[address] Ambulatory 08/09/2024/ 5 [id number] Ambulatory Building:[address] Ambulatory 07/12/2024/ 5 [id number] Ambulatory Building:[address] Ambulatory 06/14/2024/ 5 [id number] Ambulatory Building:[address] Ambulatory 04/16/2024/ 5 [id number] Ambulatory Building:[address] Ambulatory 03/05/2024/ 4 [id number] Ambulatory Building:[address] Ambulatory 03/05/2024/ 4 [id number] Ambulatory Building:NOM S SWS OB [facility] EPIC 01/30/2024/ 4 [id number] Ambulatory Building:[address] Ambulatory 11/17/2023/ 4 [id number] Ambulatory Building:[address] PAYERS ENCOUNTER GUARANTOR PAYER SUBSCRIBER SOURCE 09/13/2024 WILD HERRERAB: [place], [place] [address]Wcy: () Primary Insurance:[employer] Policy Number: [id number] ctive Date:2022-03-31 WILD HERRERAB: [id number] [place], [place] [address]Fqg: () [facility] 08/09/2024 WILD HERRERAB: [place], [place] [address]Hpj: () Primary Insurance:[employer]HE[employer] Policy Number: [id number] ctive Date:2022-03-31 WILD HERRERAB: [id number] [place], [place] [address]Gtz: () [facility] 07/12/2024 WILD YIDOB: [place], [place] [address]Kef: () Primary Insurance:[employer]HE[employer] Policy Number: [id number] ctive Date:2022-03-31 WILD OZUNAKEYDOB: [id number] [place], [place] [address]Rht: () [facility] Ambulatory 06/14/2024 WILD YIDOB: [place], [place] [address]Nyu: () Primary Insurance:[employer]M Policy Number: [id number] ctive Date:2022-03-31 WILD YIDOB: [id number] [place], [place] [address]Vlh: () [facility] 04/16/2024 WILD YIDOB: [place], [place] [address]Kjs: () Primary Insurance:[employer] Policy Number: [id number] ctive Date:2022-03-31 WILD YIDOB: [id number] [place], [place] [address]Arp: () [facility] 03/05/2024 WILD OZUNAKEYDOB: [place], [place] [address]Biv: () Primary Insurance:[employer] Policy Number: [id number] ctive Date:2022-03-31 WILD YIDOB: [id number] [place], [place] [address]Jxy: () [facility] 03/05/2024 WILD Streeter KASSIDYDOB: [place] [address]Kdc: (HP) Primary Insurance:[facility] licy Number: [id number] ctive Date:2022-03-31 WILD Streeter KASSIDYDOB: [id number] [place] [address] [facility] 01/30/2024 WILD JAVIERB: [place], [place] [address]Npt: (HP) Primary Insurance:[employer] Policy Number: [id number] ctive Date:2022-03-31 WILD JAVIERB: [id number] [place] [address]Snu: (HP) [facility] 11/17/2023 WILD JAVIERB: [place], [place] [address]Yhs: (HP) Primary Insurance:[employer] Policy Number: [id number] ctive Date:2022-03-31 WILD JAVIERB: [id number] [address] [place], [place] [address]Rdy: (HP) [facility]
--- NOTE | 2024-10-05 14:03 | MM_ITS ---
Patient Name: WILD YI MR#: [id number] : 1980 Exam Date: 10/05/2024 Ordering Doctor: DR. JEREMY OCONNOR D.O. RADIOLOGY REPORT PROCEDURE: MM TOMOSYNTHESIS SCREENING BI COMPARISON: MM TOMOSYNTHESIS SCREENING BI, 05/28/2013. INDICATIONS: Screening Calculator Name NCI Breast Cancer Risk Assessment Tool 5 Year Breast Cancer Risk 0.60% Lifetime Breast Cancer Risk 6.30% Personal Breast Cancer No Personal Ovarian Cancer No Treatments None Family Cancers Aunt-paternal with breast cancer at age 35; Mother with skin cancer at age 66; Aunt-maternal with kidney cancer at age 70; Aunt-maternal with lung cancer at age 50; Uncle-maternal with pancreatic cancer at age 60. LOCATION: [facility] BREAST COMPOSITION: There are scattered areas of fibroglandular density. FINDINGS: RIGHT BREAST: No significant suspicious finding. LEFT BREAST: No significant suspicious finding. DIAGNOSTIC CATEGORY 1--NEGATIVE. RECOMMENDATIONS: ROUTINE MAMMOGRAM AND CLINICAL EVALUATION IN 12 MONTHS. PLEASE NOTE: A NORMAL MAMMOGRAM DOES NOT EXCLUDE THE POSSIBILITY OF BREAST CANCER. A CLINICALLY SUSPICIOUS PALPABLE LUMP SHOULD BE BIOPSIED. Dictated by: Carlos Tripathi DO on 10/05/2024 at 15:33 Approved by: Carlos Tripathi DO on 10/05/2024 at 15:36
== END 2024-10-05 14:02 | disposition home or self-care (01) ==
LOC: MAMMO 14:01
PROVIDERS: PCP Internal Medicine; Visit Provider Obstetrics & Gynecology
DX: Z12.31 Encounter for screening mammogram for malignant neoplasm of breast (principal); Z80.3 Family history of malignant neoplasm of breast; Z80.51 Family history of malignant neoplasm of kidney; Z80.1 Family history of malignant neoplasm of trachea, bronchus and lung; Z80.8 Family history of malignant neoplasm of other organs or systems
CPT/HCPCS: 77063; 77067

== ENCOUNTER 2024-12-15 07:25 | Outpatient (OUT) | payer BC, SELFPAY ==
--- OUTSIDE RECORDS SUMMARY | 2024-12-15 07:29 | XMS_ITS | CCD ---
Author Organization [facility] CliniSyal Care Team Providers Care Senior Billing Consultant Name Role Phone Subhash, Christopher S Unavailable [...] vailable Family Physician Unavailable Unavailable Deirdre vailable zvince-Gretchen Luana Unavailable Unavailable Kountz, Mee Unavailable Unavailable Weinerman, Clotilde Unavailable Unavailable Isaac, Kelsey Unavailable Unavailable Ball, Aquiles E Unavailable Unavailable Godinez, Luana Unavailable Unavailable Weinerman, Clotilde Unavailable Unavailable Isaac, Kelsey Unavailable Unavailable IVF NURSE RAYNA WAGNER Unavailable Unavaila Jamshid Peralta Unavailable Unavailable ChouAnnie Unavailable Unavailable Anika Freeman Unavailable Unavailable Ball, Aquiles E Unavailable Unavailable Unavailable DR AQUILES ESCOBEDO Primary Care Unavailable FANNY, DR TANNER Consulting Unavailable FANNY, DR TANNER Attending Unavailable DR AQUILES ESCOBEDO Admitting Unavailable ANASTASIA, TESS Consulting Unavailable DR AQUILES ESCOBEDO Primary Care Unavailable ANASTASIA, TESS Attending Unavailable RINAVIS, TESS Admitting Unavailable DR AQUILES ESCOBEDO Primary Care Unavailable RINAVIS, TESS Consulting Unavailable RINAVIS, TESS Attending Unavailable RINAVIS, TESS Admitting Unavailable DR AQUILES ESCOBEDO Primary Care Unavailable RINKES, TESS Consulting Unavailable RINAVIS, TESS Attending Unavailable RINAVIS, TESS Admitting Unavailable RINAVIS, TESS Admitting Unavailable DR AQUILES ESCOBEDO Primary Care Unavailable ANASTASIA, TESS Consulting Unavailable ANASTASIA, TESS Attending Unavailable DO Tess Saxena Attending Provider [phone] NO FAMILY, PHYSICIAN Primary Care Unavailable Rinkes, Tess Admitting Unavailable Rinavis, Tess Attending Unavailable Aquiles Escobedo Primary Care Unavailable Eulalia, Rocio Admitting Unavailable Eulalia, Rocio Attending Unavailable BallAquiles Primary Care Unavailable Rinkes, Tess Admitting Unavailable Rinkes, Tess Attending Unavailable Fanny, Aquiles Unavailable Isaac, Dr. Kelsey Mesa Attending Unavailable Isaac, Dr. Kelsey Mesa Referring Unavailable Ball, Dr. Aquiles Fontanez [facility] Jeanne Gray, Dr. Kelsey Mesa Attending Unavailable Isaac, Dr. Kelsey Mesa Referring Unavailable Fanny, Dr. Aquiles Fontanez [facility] Jeanne Gray, Dr. Kelsey Mesa Attending Unavailable Isaac, Dr. Kelsey Mesa Referring Unavailable Ball, Dr. Aquiles Fontanez [facility] Jeanne Gray, Dr. Kelsey Mesa Attending Unavailable Isaac, Dr. Kelsey Mesa Referring Unavailable Fanny, Dr. Aquiles Fontanez [facility] Jeanne Gray, Dr. Kelsey Mesa Attending Unavailable Isaac, Dr. Kelsey Mesa Referring Unavailable Fanny, Dr. Aquiles Fontanez [facility] Jeanne Gray, Dr. Kelsey Mesa Attending Unavailable Isaac, Dr. Kelsey Mesa Referring Unavailable Fanny, Dr. Aquiles Fontanez [facility] Jeanne Gray, Dr. Kelsey Mesa Attending Unavailable Isaac, Dr. Kelsey Mesa Referring Unavailable Fanny, Dr. Aquiles Fontanez [facility] Jeanne Gray, Dr. Kelsey Mesa Attending Unavailable Isaac, Dr. Kelsey Mesa Referring Unavailable Fanny, Dr. Aquiles Fontanez [facility] Jeanne Gray, Dr. Kelsey Mesa Attending Unavailable Isaac, Dr. Kelsey Mesa Referring Unavailable Fanny, [facility], Dr. Kelsey Mesa Attending Unavailable Isaac, Dr. Kelsey Mesa Referring Unavailable Fanny, Dr. Aquiles Fontanez [facility] Jeanne dhaliwal Generic Provider , No Assigned Pcp Primary Car e Provider Unavailable Michael ODELL, Miladis Acosta Attending Unavailable Michael ODELL, Miladis Acosta Attending Unavailable Michael ODELL, Miladis Acosta Attending Unavailable KELSEY GRAY Attending Unavailable ISAAC, KELSEY L Referring Unavailable ISAAC, KELSEY L Attending Unavailable GENERIC PROVIDER, NO ASSIGNED PCP Primary Care Unavailable ISAAC, KELSEY L Attending Unavailable GENERIC PROVIDER, NO ASSIGNED PCP Primary Care Unavailable ISAAC, KELSEY L Attending Unavailable GENERIC PROVIDER, NO ASSIGNED PCP Primary Care Unavailable CARL TINO L Attending Unavailable GENERIC PROVIDER, NO ASSIGNED PCP Primary Care Unavailable ISAAC, KELSEY L Attending Unavailable GENERIC PROVIDER, NO ASSIGNED PCP Primary Care Unavailable ISAAC, KLESEY L Attending Unavailable ISAAC, KELSEY L Referring Unavailable GENERIC PROVIDER, NO ASSIGNED PCP Primary Care Unavailable Generic Provider , No Assigned Pcp Primary Car e Provider Unavailable Aquiles Escobedo MD Primary Care Provider Generic Provider MD, No Assigned Pcp Primary Car e Provider Unavailable Generic Provider MD, No Assigned Pcp Primary Car e Provider Unavailable Generic Provider MD, No Assigned Pcp Primary Car e Provider Unavailable ISAAC, KELSEY L Attending Unavailable GENERIC PROVIDER, NO ASSIGNED PCP Primary Care Unavailable ISAAC, KELSEY L Attending Unavailable ISAAC, KELSEY L Referring Unavailable GENERIC PROVIDER, NO ASSIGNED PCP Primary Care Unavailable ISAAC, KELSEY L Attending Unavailable ISAAC, KELSEY L Referring Unavailable GENERIC PROVIDER, NO ASSIGNED PCP Primary Care Unavailable ISAAC, KELSEY L Attending Unavailable GENERIC PROVIDER, NO ASSIGNED PCP Primary Care Unavailable ISAAC, KELSEY L Attending Unavailable GENERIC PROVIDER, NO ASSIGNED PCP Primary Care Unavailable ISAAC, KELSEY L Attending Unavailable GENERIC PROVIDER, NO ASSIGNED PCP Primary Care Unavailable ISAAC, KELSEY L Attending Unavailable ISAAC, KELSEY L Attending Unavailable Allergies Allergy Classification Reported Allergen(s) Allergy Type Date of Onset Reaction(s) Facility (2 sources) Amoxicillin / Clavulanate Drug Allergy Unknown [employer] Other (2 sources) Hydroxyquinolone *CHEMICALS* Propensity to adverse reactions Comment:Quinol ones [employer] Other (2 sources) ALLERGIES NOT ON FILE; Translations: [ALLERGIES NOT ON FILE] Propensity to adverse reactions (disorder) [facility] Medications Current Medications Medication Drug Class(es) Dates Sig (Normalized) Sig (Original) aspirin 81 mg chewable tablet (20 sources) Platelet Aggregation Inhibitor, Nonsteroidal Anti-inflammatory Drug Start: 08-18-2022 End: 08-20-2022 take 1 tablet by mouth once daily Aspirin Active 1 TAB PO Daily August 20, 2022 1:49pm Start: 08-18-2022 End: 08-18-2022 take 162 mg by mouth once daily Aspirin Discontinued 1 62 MG PO Daily August 18, 2022 12:00am August 18, 2022 11:07pm Start: 11-15-2021 take 1 tablet by flaco th every twenty-four hours Aspirin Adult Low Dose 81 MG 1 tablet Orally Once a day for 0 days Oct, Active End: 03-05-2024 ASPIRIN 81 MG chewable table t 1 (one) time each day at the same time. 03/05/2024 Discontinued take 2 tablets by mo [facility] once daily Aspirin 81 MG Oral Tablet Delayed Release TAKE 2 TABLET Daily Quantity: 60 Refills: 6 Ordered: 17-Dec-2019 Jamshid Currie MD Active Aspirin 81 MG Or al Tablet Delayed Release Refills: 0 DO Active famotidine 20 mg oral tablet (5 sources) Histamine-2 Receptor Antagonist Start: 08-18-2022 take 1 tablet by mouth twice daily Famotidine (Pepcid) 20 mg Tablet Active 20 MG PO Twice daily August 18, 2022 12:00am Famotidine (PEPC ID PO) Pepcid Active take 1 tablet by flaco th once at bedtime as needed Pepcid 20 MG 1 tablet at bedtime as need ed Orally q HS Active ibuprofen 600 mg oral tablet (1 source) Nonsteroidal Anti-inflammatory Drug Start: 08-20-2022 Ibuprofen Active 600 MG PO Every 6 hours August 20, 2022 12:00am do not exceed 4 doses in a 24 hour period levothyroxine sodium 0.1 mg oral capsule (20 sources) l-Thyroxine Start: 06-02-2023 take 100 ug by mouth once daily before breakfast Levothyroxine Active 100 MCG PO Daily before breakfast 90 90 June 02, 2023 2:26pm Start: 01-08-2022 take 1 tablet by flaco th once daily in the morning levothyroxine (Synthroid, Levoxyl) 100 MCG tablet Indications: 30 weeks gestation of TAKE 1 TABLET BY MOUTH EVERY DAY IN THE MORNING ON AN EMPTY STOMACH 90 tablet 09/04/2022 Active Start: 12-28-2021 take 1 tablet by [...] MD Start : 31-Aug-2018 Active Start: 07-23-2017 End: 06-02-2023 take 100 ug by mouth once daily before breakfast Levothyroxine Discontinued 100 MCG PO Daily before breakfast 180 90 May 29, 2023 8:30pm June 02, 2023 2:27pm Start: 07-23-2017 take 50 ug by mouth once daily Levothyroxine Active 50 MCG PO Daily July 23, 2017 12:47pm Qfltodrg-Lbk-Yt-Fa (1 source) Start: 08-18-2022 take 1 tablet by mouth once Wdglyszr-Btl-Ll-Fa Active TAB PO August 18, 2022 12:00am VIT-FE CBN-FE SULF-FA PO (3 sources) VIT-FE CBN-FE SULF-FA PO Take by mouth. Active sertraline 100 mg oral tablet (20 sources) Serotonin Reuptake Inhibitor Start: 11-12-2023 take 1 tablet by mouth once daily Sertraline Active 0 .ROUTE .COMPLEX November 12, 2023 1:25pm TAKE 1 TABLET BY MOUTH EVERY DAY Start: 06-16-2017 End: 11-12-2023 take 100 mg by mouth once daily at bedtime Sertraline Discontinued 100 MG PO Daily at bedtime July 23, 2017 12:00am November 12, 2023 1:25pm take 2 tablets by mo uth once daily Zoloft 50 MG Oral Tablet TAKE 2 TABLETS DAILY. Quantity: 0 Refills: 0 Ordered: 11-Jan-2020 Jamshid Currie MD Active Zoloft 50 MG Ora l Tablet Refills: 0 DO Active tiZANidine 4 mg oral tablet (4 sources) Central alpha-2 Adrenergic Agonist Start: 07-07-2023 take 0.5-1 tablets by mouth at bedtime as needed for pain Tizanidine Active 0 .ROUTE .COMPLEX July 07, 2023 7:30pm TAKE 1/2 - 1 TABLET BY MOUTH AT BEDTIME NEEDED FOR NECK PAIN Start: 06-12-2023 End: 07-07-2023 take 4 mg by mouth once daily at bedtime for pain Tizanidine Discontinued 4 MG PO Daily at bedtime June 12, 2023 12:00am July 07, 2023 7:30pm 1/2 - 1 PO q HS PRN neck pain Completed/Discontinued Medications Medication Drug Class(es) Dates Sig (Normalized) Sig (Original) acetaminophen 325 mg / HYDROcodone bitartrate 5 mg oral tablet (3 sources) Opioid Agonist Start: 07-23-2017 End: 08-18-2022 take 1 tablet by mouth every four hours Hydrocodone-Acetam inophen ([place]ula) 5-325 mg tablet Discontinued 1 TAB PO Q4H July 23, 2017 August 18, 2022 11:04pm [id number] actuat albuterol 0.09 mg/actuat metered dose [...] hours for 10 days May, Not-Taking azithromycin 250 mg oral tablet (3 sources) Macrolide Antimicrobial Start: 06-02-2023 End: 12-10-2023 Azithromycin Discontinued 250 MG PO As Directed 6 June 02, 2023 1:00am December 10, 2023 2:00pm Start: 05-15-2013 take 1 tablet by flaco th every twenty-four hours Zithromax 500 MG 1 tablet Orally Once a day for 5 day(s) May, Not-Taking/PRN BD Disp [place] 18G X 1-1/2 (1 source) Start: 08-19-2019 BD Disp [place] 18G X 1-1/2 Use to draw up Progesterone/Oil Quantity: 30 Refills: 3 Clotilde Espinosa MD Start : 19-Aug-2019 Active benzonatate 100 mg oral capsule (2 sources) Non-narcotic Antitussive Start: 05-15-2013 take 1 capsule by mouth every eight hours Benzonatate 100 MG 1 capsule as needed Orally Three times a day for As needed for cough May, Not-Taking/PRN cephalexin 500 mg oral capsule (3 sources) Cephalosporin Antibacterial Start: 07-23-2017 End: 08-18-2022 take 1 capsule by mouth every twelve hours Cephalexin (Keflex) 500 mg capsule Discontinued 500 MG PO Q12H July 23, 2017 12:00am August 18, 2022 11:04pm ciprofloxacin 3 mg/ml / dexamethasone 1 mg/ml otic suspension (1 source) Corticosteroid, Quinolone Antimicrobial Start: 11-29-2020 Ciprofloxacin-Dexame thasone 0.3-0.1 % Otic Suspension Quantity: 8 Refills: [...] Start: 08-04-2018 take 3 tablets by mo [facility] once daily Estradiol 2 MG Oral Tablet take 3 tablets a day orally Quantity: 90 Refills: 3 Clotilde Espinosa MD Start : 04-Aug-2018 Active Start: 07-23-2017 End: 08-18-2022 take 2 mg by mouth twice daily Estradiol Discontinued 2 MG PO Twice daily July 23, 2017 12:00am August 18, 2022 11:04pm fluticasone propionate 0.05 mg/actuat metered dose nasal [...] Clotilde Espinosa MD Start : 20-May-2019 Active lidocaine hydrochloride 20 mg/ml mucous membrane topical [...] ML (1 source) Start: 08-19-2019 Luer Lock Safe ty Syringes 3 ML USE DIRECTED. Quantity: 31 Refills: 3 Clotilde Espinosa MD Start : 19-Aug-2019 Active melatonin 5 mg oral capsule (7 sources) Start: 07-23-2017 End: 08-18-2022 take 5 mg by mouth once daily Melatonin Discontinued 5 MG PO Daily July 23, 2017 12:00am August 18, 2022 11:04pm Melatonin 10 MG Oral Capsule Refills: 0 Active Methocarbamol (1 source) Muscle Relaxant Start: 06-11-2023 End: 06-12-2023 take 1000 mg by mouth once daily at bedtime Methocarbamol Discontinued 1000 MG PO Daily at bedtime June 11, 2023 12:00am June 12, 2023 4:37pm methylPREDNISolone 16 mg oral tablet (4 sources) Corticosteroid Start: 08-04-2018 take 1 tablet by mouth at bedtime methylPREDNISolone 16 MG Oral Tablet TAKE 1 TABLET Bedtime Quantity: 4 Refills: 0 Clotilde Espinosa MD Start : 04-Aug-2018 Active naproxen 500 mg oral tablet (3 sources) Nonsteroidal Anti-inflammatory Drug Start: 07-23-2017 End: 08-18-2022 take 500 mg by mouth twice daily at mealtime Naproxen Discontinued 500 MG PO Twice daily July 23, 2017 12:00am August 18, 2022 11:04pm administer with food or milk norethindrone acetate 5 mg oral tablet (19 sources) Start: 09-01-2021 take 1 tablet by mouth once daily Norethindrone Acetate 5 MG Oral Tablet TAKE 1 TABLET DAILY. Quantity: 30 Refills: 1 Ordered: 06-Sep-2021 Clotilde Espinosa MD Start : 01-Sep-2021 Active Start: 07-12-2019 take 1 tablet by [facility] once daily Norethindrone Acetate 5 MG Oral [...] Annie Chou MD Start : 28-Mar-2020 Active ondansetron 4 mg disintegrating oral tablet (3 sources) Serotonin-3 Receptor Antagonist Start: 07-23-2017 End: 08-18-2022 take 1 tablet by mouth every eight hours Ondansetron (Zofran Odt) 4 mg tablet,disintegra ting Discontinued 4 MG PO Q8H 9 3 July 23, 2017 12:00am August 18, 2022 11:04pm oseltamivir 75 mg oral capsule (2 sources) [...] Anxiety; Translations: [Mixed anxiety and depressive disorder] 12-08-2023 Chronic Calculus of urinary tract (5 sources) Kidney stone; Translations: [Calculus of kidney] [...] with diseases classified elsewhere] Chronic Mood disorders (20 sources) Mild recurrent major depression; Translations: [Major depressive disorder, recurrent, mild] Onset: 3 Chronic Other acquired deformities (1 source) Spondylolisthesis L5/S1 level; Translations: [Spondylolisthesis, lumbosacral region] 07-09-2023 Episodic Other aftercare (20 sources) Long-term current use [...] MET DZ COMP PG 2ND TRI] Onset: Episodic Other endocrine disorders (7 sources) Diminished ovarian reserve; Translations: [Diminished ovarian reserve due to low antral follicle] Episodic Other female genital disorders (20 sources) History of recurrent miscarriage - not ; Translations: [Recurrent loss without current ] Episodic Other female genital disorders (20 sources) 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; Translations: [Recurrent loss, antepartum condition or complication] Episodic Other female genital disorders (1 source) History of past delivery; Translations: [Status post vaginal delivery] 03-12-2023 Episodic Other gastrointestinal disorders (8 sources) Diarrhea; [...] Increased prolactin level; Translations: [Viral screening status] 12-08-2023 Episodic Other upper respiratory infections (20 sources) [...] complication] Episodic Regional enteritis and ulcerative colitis (15 sources) Crohn's disease; Translations: [Crohn's disease of [...] Spondylosis; intervertebral disc disorders; other back problems (12 sources) Cervical radiculopathy; Translations: [Lumbar spondylosis] 12-10-2023 Chronic Spontaneous (20 sources) Miscarriage; Translations: [ demise [...] [Other acute postoperative pain] Resolved: 04-18-2016 Episodic Spondylosis; intervertebral disc disorders; other back problems (11 sources) Cervical radiculopathy; Translations: [Brachial neuritis or radiculitis NOS] 09-22-2023 Episodic Unclassified (1 source) 90305/N20.1 Onset: 07-30-2017 Unclassified (20 sources) Patient encounter [...] Test Name Value Interpretation Reference Range Facility Basophils Auto (Bld) [#/Vol] on 11-26-2023 Basophils (Bld) [#/Vol] 0.1 10 3/uL 0.0-0.1 [facility] Basophils/100 WBC Auto (Bld) on 11-26-2023 Basophils/100 WBC (Bld) 0.8 % 0.2-2.0 [facility] Cholesterol in LDL Calc [Mas s/Vol]on 11-26-2023 Cholesterol in LDL [Mass/Vol] 149.0 mg/dL [facility] Comment on above: <100 mg/dl [id number] 0-129 mg/dl NEAR OR ABOVE [id number] mg/dl BORDERLINE [id number] mg/dl HIGH>190 mg/dl VERY HIGH Cholesterol in VLDL Calc [Ma ss/Vol]on 11-26-2023 Cholesterol in VLDL [Mass/Vol] 12.8 mg/dL [facility] Eosinophils/100 WBC Auto (Bl d)on 11-26-2023 Eosinophils/100 WBC (Bld) 2.4 % 0.9-7.0 [facility] Erythrocyte distribution wid th Auto (RBC) [Ratio]on 11-26-2023 Erythrocyte distribution width (RBC) [Ratio] 12.7 % 11.0-15.0 [facility] Estimated glomerular filtrat ion rate (GFR) non- Americanon 11-26-2023 GFR/1.73 sq M.predicted among non-blacks MDRD (S/P/Bld) [Vol rate/Area] mL/min/{1.73_m2} >=60 [facility] Globulin Calc (S) [Mass/Vol] on 11-26-2023 Globulin (S) [Mass/Vol] 3.0 g/dL [facility] Glucose mean value [Mass/vol ume] in Blood Estimated from glycated hemoglobinon 11-26-2023 Average glucose Estimated from glycated hemoglobin (Bld) [Mass/Vol] 94 mg/dL [facility] Hematocrit Auto (Bld) [Volum e fraction]on 11-26-2023 Hematocrit (Bld) [Volume fraction] 40.5 % 36.0-48.0 [facility] Hemoglobin [Mass/volume] in Bloodon 11-26-2023 Hemoglobin (Bld) [Mass/Vol] 13.6 g/dL 12.0-16.0 [facility] Laboratory - Chemistry and C hemistry - challengeon 11-26-2023 Albumin [Mass/Vol] 3.6 g/dL 3.4-5.0 [facility] ALP [Catalytic activity/Vol] 58 U/L 46-116 [facility] ALT [Catalytic activity/Vol] 23 U/L 14-59 [facility] AST [Catalytic activity/Vol] 15 U/L 15-37 [facility] Bilirubin [Mass/Vol] 0.5 mg/dL 0.2-1.0 [facility] Calcium [Mass/Vol] 8.7 mg/dL 8.5-10.1 [facility] Chloride [Moles/Vol] 103 mmol/L 98-107 [facility] Cholesterol [Mass/Vol] 226 mg/dL High <=200 [facility] Cholesterol in HDL [Mass/Vol] 65 mg/dL High 40-60 [facility] Comment on above: > or =60 mg/dl - LOW CARDIOVASCULAR RISK<40 mg/dl - HIGH CARDIOVASCULAR RISK CO2 [Moles/Vol] 26.9 mmol/L 21.0-32.0 [facility] Creatinine [Mass/Vol] 0.61 mg/dL 0.55-1.02 [facility] GFR/1.73 sq M.predicted MDRD (S/P/Bld) [Vol rate/Area] mL/min/{1.73_m2} >=60 [facility] Glucose [Mass/Vol] 93 mg/dL 74-106 [facility] Potassium [Moles/Vol] 4.1 mmol/L 3.5-5.1 [facility] Protein [Mass/Vol] 6.6 g/dL 6.4-8.2 [facility] Sodium [Moles/Vol] 139 mmol/L 136-145 [facility] Triglyceride [Mass/Vol] 64 mg/dL <=150 [facility] TSH Qn 3.032 m[IU]/L 0.358-3.740 [facility] Urea nitrogen [Mass/Vol] 16.0 mg/dL 7.0-18.0 [facility] Urea nitrogen/Creatinine [Mass ratio] 26.2 mg/mg [facility] Laboratory - Hematology and Cell countson 11-26-2023 HbA1c (Bld) [Mass fraction] 4.9 % 4.5-6.2 [facility] Comment on above: ADA RECOMMENDED LIMI T 4.0 - 6.0ADA THERAPEUTIC TARGET < 7.0ACTION SUGGESTED> 7.0 Immature granulocytes/100 WBC (Bld) 0.2 % 0.0-0.5 [facility] Leukocytes [#/volume] correc elio for nucleated erythrocytes in Blood by Automated counon 11-26-2023 WBC corrected for nucl RBC Auto (Bld) [#/Vol] 8.3 10 3/uL 4.0-11.0 [facility] Lymphocytes Auto (Bld) [#/Vo l]on 11-26-2023 Lymphocytes (Bld) [#/Vol] 1.6 10 3/uL 1.2-3.8 [facility] Lymphocytes/100 WBC Auto (Bl d)on 11-26-2023 Lymphocytes/100 WBC (Bld) 19.0 % Low 20.5-60.0 [facility] MCH Auto (RBC) [Entitic mass ]on 11-26-2023 MCH (RBC) [Entitic mass] 30.6 pg 26.7-34.0 [facility] MCHC Auto (RBC) [Mass/Vol]on 11-26-2023 MCHC (RBC) [Mass/Vol] 33.6 g/dL 29.9-35.2 [facility] MCV Auto (RBC) [Entitic vol] on 11-26-2023 MCV (RBC) [Entitic vol] 91.2 fL 81.0-99.0 [facility] Monocytes Auto (Bld) [#/Vol] on 11-26-2023 Monocytes (Bld) [#/Vol] 0.4 10 3/uL 0.3-0.8 [facility] Monocytes/100 WBC Auto (Bld) on 11-26-2023 Monocytes/100 WBC (Bld) 5.2 % 1.7-12.0 [facility] Neutrophils Auto (Bld) [#/Vo l]on 11-26-2023 Neutrophils (Bld) [#/Vol] 6.0 10 3/uL 1.4-6.5 [facility] Neutrophils/100 WBC Auto (Bl d)on 11-26-2023 Neutrophils/100 WBC (Bld) 72.4 % 43.0-75.0 [facility] No Panel Informationon 11-25 Eosinophils # (Auto) 0.2 10 3/uL 0.0-0.7 [facility] Immature Granulocyte # (Auto) 0.02 10 3/uL 0.00-0.03 [facility] Platelet mean volume Auto (B ld) [Entitic vol]on 11-26-2023 Platelet mean volume (Bld) [Entitic vol] 10.3 fL 9.5-13.5 [facility] Platelets Auto (Bld) [#/Vol] on 11-26-2023 Platelets (Bld) [#/Vol] 248 10 3/uL 150-450 [facility] RBC Auto (Bld) [#/Vol]on RBC (Bld) [#/Vol] 4.44 10 6/uL 4.20-5.40 [facility] Serum or plasma albumin/glob ulin mass ratioon 11-26-2023 Albumin/Globulin [Mass ratio] 1.2 {ratio} [facility] Serum or plasma anion gap de terminationon 11-26-2023 Anion gap [Moles/Vol] 13.2 mmol/L [facility] Serum or plasma total choles terol/high density lipoprotein (HDL) cholesterol mass juli 11-26-2023 Cholesterol.total/C holesterol in HDL [Mass ratio] 3.5 {ratio} [facility] Comment on above: 3.3 - 4.4 LOW RISK4. 4 - 7.1 AVERAGE RISK7.1 - 11.0 MODERATE RISK>11.0 HIGH RISK Complete Blood Count Auto Di ffon 08-20-2022 Basophils (Bld) [#/Vol] 0.1 10*3/uL Normal 0.0-0.2 [facility] Comment on above: Order Comment: Comme nt Draw at 630 am Result Comment: PERF ORMED BY: [place] [address] PATHOLOGIST HOSPITAL SCIENTIST RENETTA CASE M.D. Performed By: #### C BC #### [facility] [address] [place] [address] Basophils/100 WBC (Bld) 0.6 % Normal . [facility] Comment on above: Order Comment: Comme nt Draw at 630 am Performed By: #### C BC #### [facility] [address] [place] [address] Eosinophils (Bld) [#/Vol] 0.1 10*3/uL Normal 0.0-0.45 [facility] Comment on above: Order Comment: Comme nt Draw at 630 am Performed By: #### C BC #### [facility] [address] [place] [address] [place] Eosinophils/100 WBC (Bld) 1.1 % Normal . [facility] Comment on above: Order Comment: Comme nt Draw at 630 am Performed By: #### C BC #### [facility] [address] [place] [address] Erythrocyte distribution width (RBC) [Ratio] 14.4 % Normal 11.9-15.3 [facility] Comment on above: Order Comment: Comme nt Draw at 630 am Performed By: #### C BC #### [address] Hematocrit (Bld) [Volume fraction] 32.8 % Low 34.0-46.4 [facility] Comment on above: Order Comment: Comme nt Draw at 630 am Performed By: #### C BC #### [address] Hemoglobin (Bld) [Mass/Vol] 10.9 g/dL Low 11.8-15.4 [facility] Comment on above: Order Comment: Comme nt Draw at 630 am Performed By: #### C BC #### [address] Lymphocytes (Bld) [#/Vol] 1.4 10*3/uL Normal 1.00-4.8 [facility] Comment on above: Order Comment: Comme nt Draw at 630 am Performed By: #### C BC #### [address] Lymphocytes/100 WBC (Bld) 14.2 % Normal . [facility] Comment on above: Order Comment: Comme nt Draw at 630 am Performed By: #### C BC #### [address] MCH (RBC) [Entitic mass] 29.6 pg Normal 24.7-34.3 [facility] Comment on above: Order Comment: Comme nt Draw at 630 am Performed By: #### C BC #### [address] MCV (RBC) [Entitic vol] 88.8 fL Normal 80-100 [facility] Comment on above: Order Comment: Comme nt Draw at 630 am Performed By: #### C BC #### [address] Mean Corpuscular HGB Conc 33.4 g/dL Normal 32.0-35.0 [facility] Comment on above: Order Comment: Comme nt Draw at 630 am Performed By: #### C BC #### [facility] [address] Monocytes (Bld) [#/Vol] 0.5 10*3/uL Normal 0.0-0.8 [facility] Comment on above: Order Comment: Comme nt Draw at 630 am Performed By: #### C BC #### [address] Monocytes/100 WBC (Bld) 5.3 % Normal . [facility] Comment on above: Order Comment: Comme nt Draw at 630 am Performed By: #### C BC #### [facility] [address] [place] [address] Neutrophils (Bld) [#/Vol] 7.7 10*3/uL Normal 1.8-7.7 [facility] Comment on above: Order Comment: Comme nt Draw at 630 am Performed By: #### C BC #### [address] Neutrophils/100 WBC (Bld) 78.8 % Normal . [facility] Comment on above: Order Comment: Comme nt Draw at 630 am Performed By: #### C BC #### [address] NRBC% 0.1 /100{WBC} Normal 0-0.5 [facility] Comment on above: Order Comment: Comme nt Draw at 630 am Performed By: #### C BC #### [address] Platelet mean volume (Bld) [Entitic vol] 11.6 fL High 6.3-10.7 [facility] Comment on above: Order Comment: Comme nt Draw at 630 am Performed By: #### C BC #### [place] [address] [place] Platelets (Bld) [#/Vol] 149 10*3/uL Low 150-450 [facility] Comment on above: Order Comment: Comme nt Draw at 630 am Performed By: #### C BC #### [place] [address] [place] RBC (Bld) [#/Vol] 3.69 10*6/uL Normal 3.60-5.00 [facility] Comment on above: Order Comment: Comme nt Draw at 630 am Performed By: #### C BC #### [address] WBC (Bld) [#/Vol] 9.7 10*3/uL Normal 3.8-11.6 [facility] Comment on above: Order Comment: Comme nt Draw at 630 am Performed By: #### C BC #### [address] ABO/Rh Retypeon 08-19-2022 ABO/RH Recheck Result Positive Normal [facility] Comment on above: Result Comment: PERF ORMED BY: [place] [address] PATHOLOGIST HOSPITAL SCIENTIST RENETTA CASE M.D. Complete Blood Count Auto Di ffon 08-19-2022 Basophils (Bld) [#/Vol] 0.1 10*3/uL Normal 0.0-0.2 [facility] Comment on above: Result Comment: PERF ORMED BY: [place] [address] PATHOLOGIST HOSPITAL SCIENTIST RENETTA CASE M.D. Performed By: #### C BC #### [address] #### RPR W RFX #### [facility] , Basophils/100 WBC (Bld) 0.8 % Normal . [facility] Comment on above: Performed By: #### C BC #### [address] #### RPR W RFX #### [facility] , Eosinophils (Bld) [#/Vol] 0.1 10*3/uL Normal 0.0-0.45 [facility] Comment on above: Performed By: #### C BC #### [facility] [address] [place] [address] #### RPR W RFX #### [facility] , Eosinophils/100 WBC (Bld) 1.4 % Normal . [facility] Comment on above: Performed By: #### C BC #### [facility] [address] [place] [address] #### RPR W RFX #### [facility] , Erythrocyte distribution width (RBC) [Ratio] 14.7 % Normal 11.9-15.3 [facility] Comment on above: Performed By: #### C BC #### [facility] [address] [place] [address] #### RPR W RFX #### [facility] , Hematocrit (Bld) [Volume fraction] 33.3 % Low 34.0-46.4 [facility] Comment on above: Performed By: #### C BC #### [address] #### RPR W RFX #### [facility] , Hemoglobin (Bld) [Mass/Vol] 11.2 g/dL Low 11.8-15.4 [facility] Comment on above: Performed By: #### C BC #### [facility] [address] [place] [address] #### RPR W RFX #### [facility] , Lymphocytes (Bld) [#/Vol] 1.6 10*3/uL Normal 1.00-4.8 [facility] Comment on above: Performed By: #### C BC #### [facility] [address] [place] [address] [place] #### RPR W RFX #### [facility] , Lymphocytes/100 WBC (Bld) 16.0 % Normal . [facility] Comment on above: Performed By: #### C BC #### [place] [id number] [place] #### RPR W RFX #### [facility] , MCH (RBC) [Entitic mass] 29.6 pg Normal 24.7-34.3 [facility] Comment on above: Performed By: #### C BC #### [facility] [address] [place] [address] #### RPR W RFX #### [facility] , MCV (RBC) [Entitic vol] 88.3 fL Normal 80-100 [facility] Comment on above: Performed By: #### C BC #### [facility] [address] [place] [address] #### RPR W RFX #### [facility] , Mean Corpuscular HGB Conc 33.5 g/dL Normal 32.0-35.0 [facility] Comment on above: Performed By: #### C BC #### [facility] [address] [place] [address] #### RPR W RFX #### [facility] , Monocytes (Bld) [#/Vol] 0.7 10*3/uL Normal 0.0-0.8 [facility] Comment on above: Performed By: #### C BC #### [facility] [address] [place] [address] #### RPR W RFX #### [facility] , Monocytes/100 WBC (Bld) 7.1 % Normal . [facility] Comment on above: Performed By: #### C BC #### [facility] [address] [place] [address] [place] #### RPR W RFX #### [facility] , Neutrophils (Bld) [#/Vol] 7.5 10*3/uL Normal 1.8-7.7 [facility] Comment on above: Performed By: #### C BC #### [facility] [address] [place] [address] #### RPR W RFX #### [facility] , Neutrophils/100 WBC (Bld) 74.7 % Normal . [facility] Comment on above: Performed By: #### C BC #### [facility] [address] [place] [address] #### RPR W RFX #### [facility] , NRBC% 0.1 /100{WBC} Normal 0-0.5 [facility] Comment on above: Performed By: #### C BC #### [facility] [address] [place] [address] #### RPR W RFX #### [facility] , Platelet mean volume (Bld) [Entitic vol] 11.5 fL High 6.3-10.7 [facility] Comment on above: Performed By: #### C BC #### [facility] [address] [place] [address] #### RPR W RFX #### [facility] , Platelets (Bld) [#/Vol] 171 10*3/uL Normal 150-450 [facility] Comment on above: Performed By: #### C BC #### [facility] [address] [place] [address] #### RPR W RFX #### [facility] , RBC (Bld) [#/Vol] 3.77 10*6/uL Normal 3.60-5.00 [facility] Comment on above: Performed By: #### C BC #### [facility] [address] [place] [address] [place] #### RPR W RFX #### [facility] , WBC (Bld) [#/Vol] 10.0 10*3/uL Normal 3.8-11.6 [facility] Comment on above: Performed By: #### C BC #### [address] [address] [place] #### RPR W RFX #### [facility] , Dipstick and Microscopicon 0 08-19-2022 Appearance (U) Cloudy Critically abnormal Clear [facility] Comment on above: Order Comment: Name Collection Type:: Clean-Voided Midstream Performed By: #### O BUDS, ADDONUAPLUS #### [facility] [address] [place] [address] [place] Bacteria,Urine None Seen Normal None Seen [facility] Comment on above: Order Comment: Name Collection Type:: Clean-Voided Midstream Performed By: #### O BUDS, ADDONUAPLUS #### [facility] [address] [place] [address] [place] Bilirubin,Urine 1+ High Negative [facility] Comment on above: Order Comment: Name Collection Type:: Clean-Voided Midstream Performed By: #### O BUDS, ADDONUAPLUS #### [place] [address] [place] Calcium Oxalate Crystals,Urine 2+ Normal [facility] Comment on above: Order Comment: Name Collection Type:: Clean-Voided Midstream Performed By: #### O BUDS, ADDONUAPLUS #### [address] Color (U) Dark Yellow Critically abnormal Yellow [facility] Comment on above: Order Comment: Name Collection Type:: Clean-Voided Midstream Performed By: #### O BUDS, ADDONUAPLUS #### [facility] [address] [place] [address] [place] Glucose Ql (U) Normal Normal Normal [facility] Comment on above: Order Comment: Name Collection Type:: Clean-Voided Midstream Performed By: #### O BUDS, ADDONUAPLUS #### [facility] [address] [place] [address] [place] Hyaline Casts,Urine 0-8 Normal 0-8 [facility] Comment on above: Order Comment: Name Collection Type:: Clean-Voided Midstream Result Comment: PERF ORMED BY: [place] [phone] PATHOLOGIST HOSPITAL SCIENTIST RENETTA CASE M.D. Performed By: #### O BUDS, ADDONUAPLUS #### [address] Ketones Ql (U) Trace High Negative [facility] Comment on above: Order Comment: Name Collection Type:: Clean-Voided Midstream Performed By: #### O BUDS, ADDONUAPLUS #### [address] Leukocyte esterase Test strip Ql (U) 1+ High Negative [facility] Comment on above: Order Comment: Name Collection Type:: Clean-Voided Midstream Performed By: #### O BUDS, ADDONUAPLUS #### [address] Nitrite,Urine Negative Normal Negative [facility] Comment on above: Order Comment: Name Collection Type:: Clean-Voided Midstream Performed By: #### O BUDS, ADDONUAPLUS #### [address] Occult Blood,Urine Negative Normal Negative [facility] Comment on above: Order Comment: Name Collection Type:: Clean-Voided Midstream Result Comment: PERF ORMED BY: [place] [address] PATHOLOGIST HOSPITAL SCIENTIST RENETTA CASE M.D. Performed By: #### O BUDS, ADDONUAPLUS #### [address] Othe Crystals,Urine None Seen Normal [facility] Comment on above: Order Comment: Name Collection Type:: Clean-Voided Midstream Performed By: #### O BUDS, ADDONUAPLUS #### [place] [address] [place] pH (U) 6.5 [pH] Normal 5.0-9.0 [facility] Comment on above: Order Comment: Name Collection Type:: Clean-Voided Midstream Performed By: #### O BUDS, ADDONUAPLUS #### [address] [place] [address] [place] Protein (U) [Mass/Vol] 30 mg/dL High Negative [facility] Comment on above: Order Comment: Name Collection Type:: Clean-Voided Midstream Performed By: #### O BUDS, ADDONUAPLUS #### [address] RBC,Urine None Seen Normal 0-4 [facility] Comment on above: Order Comment: Name Collection Type:: Clean-Voided Midstream Performed By: #### O BUDS, ADDONUAPLUS #### [address] [place],Urine 1.037 High 1.001-1.030 [facility] Comment on above: Order Comment: Name Collection Type:: Clean-Voided Midstream Performed By: #### O BUDS, ADDONUAPLUS #### [address] Squamous Epithelial Cell,Urine 3-4 High 0-2 [facility] Comment on above: Order Comment: Name Collection Type:: Clean-Voided Midstream Performed By: #### O BUDS, ADDONUAPLUS #### [address] Urobilinogen,Urine Normal Normal [facility] Comment on above: Order Comment: Name Collection Type:: Clean-Voided Midstream Performed By: #### O BUDS, ADDONUAPLUS #### [address] WBC,Urine 1-2 Normal 0-4 [facility] Comment on above: Order Comment: Name Collection Type:: Clean-Voided Midstream Performed By: #### O BUDS, ADDONUAPLUS #### [address] OB Urine Drug Screen (NO THC )on 08-19-2022 Amphetamine Screen,Urine Negative Normal Negative [facility] Comment on above: Performed By: #### O BUDS, ADDONUAPLUS #### [address] Barbiturate Screen,Urine Negative Normal Negative [facility] Comment on above: Performed By: #### O BUDS, ADDONUAPLUS #### [facility] [address] [place] [address] [place] Benzodiazepines Screen,Urine Negative Normal Negative [facility] Comment on above: Performed By: #### O BUDS, ADDONUAPLUS #### [place] [address] [place] Cocaine Screen,Urine Negative Normal Negative [facility] Comment on above: Performed By: #### O BUDS, ADDONUAPLUS #### [place] [address] [place] Opiate Screen,Urine Negative Normal Negative [facility] Comment on above: Performed By: #### O BUDS, ADDONUAPLUS #### [address] Phencyclidine Screen, Urine Negative Normal Negative [facility] Comment on above: Result Comment: Thes e are unconfirmed results and should not be used for legal purposes. Drug Cut-Off Concentration: AMPH 1000 ng/mL GUILHERME 200 ng/mL SOM 200 ng/mL COCM 300 ng/mL OP 300 ng/mL PCP 25 ng/mL PERFORMED BY: [place] [address] PATHOLOGIST HOSPITAL SCIENTIST RENETTA CASE M.D. Performed By: #### O BUDS, ADDONUAPLUS #### [address] RPR w/rfx to Quant TP Abson 08-19-2022 RPR, Rfx Quant RPR Non-Reactive Normal Non Reactive [facility] Comment on above: Result Comment: Perf ormed at: - [facility] [address], [place], [place] [id number] Laminator: Shad Velez PhD, Phone: [phone] PERFORMED BY: [place] [address] PATHOLOGIST HOSPITAL SCIENTIST RENETTA CASE M.D. Performed By: #### C BC #### [address] [place] [address] [place] #### RPR W RFX #### [facility] , Type and Screenon 08-19-2022 ABO and Rh group Nom (Bld) Blood group A Rh(D) positive Normal [facility] Comment on above: Result Comment: PERF ORMED BY: [place] [address] PATHOLOGIST HOSPITAL SCIENTIST RENETTA CASE M.D. Strep B Cultureon 07-26-2022 Strep B Culture Reason for Exam 35 w eeks gestation of ; screening for stre Vaginal/Rectal Strep B Only Cult No Group B Beta Streptococcus Isolated 3 Days PERFORMED BY: [place] [address] PATHOLOGIST HOSPITAL SCIENTIST RENETTA CASE M.D. Normal [facility] Comment on above: Performed By: #### C USTB #### [facility] [address] [place] [address] FREE T4on 07-03-2022 Free T4 [Mass/Vol] 0.94 ng/dL Normal 0.76-1.46 [facility] Comment on above: Performed By: #### C BC #### [facility] [address] [place] [address] Dr. Jose Holley TSHon 07-03-2022 TSH 2.003 uIU/mL Normal 0.358-3.740 [facility] Comment on above: Performed By: #### T SH #### [facility] [address] [place] [address] Dr. Jose Holley FREE T4on 06-05-2022 Free T4 [Mass/Vol] 0.91 ng/dL Normal 0.76-1.46 [facility] Comment on above: Performed By: #### C BC #### [facility] [address] [place] [address] Dr. Jose Holley GLUCOSE - 1HRon 06-05-2022 Glucose [Mass/Vol] 106 mg/dL Normal 74-106 [facility] Comment on above: Performed By: #### G LU1HR #### [facility] [address] [place] [address] Dr. Jose Holley HEMOGLOBIN AND HEMATOCRITon 06-05-2022 Hematocrit (Bld) [Volume fraction] 35.9 % Critically low 36.0-48.0 [facility] Comment on above: Performed By: #### C BC #### [facility] [address] [place] [address] Dr. Jose Holley Hemoglobin (Bld) [Mass/Vol] 12.1 g/dL Normal 12.0-16.0 [facility] Comment on above: Performed By: #### C BC #### [facility] [address] [place] [address] Dr. Jose Holley TSHon 06-05-2022 TSH 2.520 uIU/mL Normal 0.358-3.740 [facility] Comment on above: Performed By: #### T SH #### [facility] [address] [place] [address] Dr. Jose Holley FREE T4on 04-10-2022 Free T4 [Mass/Vol] 1.08 ng/dL Normal 0.76-1.46 [facility] Comment on above: Performed By: #### C BC #### [facility] [address] [place] [address] Dr. Jose Holley TSHon 04-10-2022 TSH 2.371 uIU/mL Normal 0.358-3.740 [facility] Comment on above: Performed By: #### T SH #### [facility] [address] [place] [address] Dr. Jose Holley HEP B SURFACE ANTIGEN SCREEN on 02-05-2022 HBsAg Screen Negative Normal Negative [facility] Comment on above: Performed By: #### C BC #### [facility] [address] [place] [address] Dr. Jose Holley HIV 1 AND 2 WITH REFLEXon HIV Screen 4th Generation wRfx Non-Reactive Normal Non Reactive [facility] Comment on above: Result Comment: HIV Negative HIV-1/HIV-2 antibodies and HIV-1 p24 antigen were NOT detected. There is no laboratory evidence of HIV infection. Performed By: #### H IV12 #### [facility] [address] [place] [address] Dr. Jose Holley RPR QUANTon 02-05-2022 Rapid Plasma Reagin, Quant Non-Reactive Normal NonRea<1:1 [facility] Comment on above: Result Comment: Plea Note: This test does not meet current guidelines for screening and diagnosis of syphilis. This test is intended for following treatment response in patients being treated for syphilis infection. To screen for syphilis infection, a reflex cascade that includes both RPR and a treponema-specific assay should be utilized, such as Treponema pallidum (Syphilis) Screening [place] (370899) or Rapid Plasma Reagin (RPR) Test With Reflex to Quantitative RPR and Confirmatory Treponema pallidum Antibodies (398525). Performed By: #### C BC #### [facility] [address] [place] [address] Dr. Jose Holley RUBELLA AB IGGon 02-05-2022 Rubella Antibodies, IgG 25.80 index Normal Immune >0.99 [facility] Comment on above: Result Comment: Non- immune <0.90 Equivocal 0.90 - 0.99 Immune >0.99 Performed By: #### R UBIGG #### [facility] [address] [place] [address] Dr. Jose Holley CBC AUTO DIFFon 02-04-2022 BASO # 0.1 103/ul Normal 0.0-0.1 [facility] Comment on above: Performed By: #### C BC #### [facility] [address] [place] [address] Dr. Jose Holley Basophils/100 WBC (Bld) 0.5 % Normal 0.2-2.0 [facility] Comment on above: Performed By: #### C BC #### [facility] [address] [place] [address] Dr. Jose Holley EO # 0.2 103/ul Normal 0.0-0.7 [facility] Comment on above: Performed By: #### C BC #### [facility] [address] [place] [address] Dr. Jose Holley Eosinophils/100 WBC (Bld) 2.1 % Normal 0.9-7.0 [facility] Comment on above: Performed By: #### C BC #### [facility] [address] [place] [address] [address] Jose Holley Erythrocyte distribution width (RBC) [Ratio] 12.6 % Normal 11.0-15.0 [facility] Comment on above: Performed By: #### C BC #### [facility] [address] [place] [address] Dr. Jose Holley Hematocrit (Bld) [Volume fraction] 41.5 % Normal 36.0-48.0 [facility] Comment on above: Performed By: #### C BC #### [facility] [address] [place] [address] Dr. Jose Holley Hemoglobin (Bld) [Mass/Vol] 14.0 g/dL Normal 12.0-16.0 [facility] Comment on above: Performed By: #### C BC #### [facility] [address] [place] [address] Dr. Jose Holley IG # 0.08 10e3/ul Critically high 0.00-0.03 [facility] Comment on above: Performed By: #### C BC #### [facility] [address] [place] [address] Dr. Jose Holley IG % 0.7 % Critically high 0.0-0.5 [facility] Comment on above: Performed By: #### C BC #### [facility] [address] [place] [address] Dr. Jose Holley LYMPH # 2.0 103/ul Normal 1.2-3.8 [facility] Comment on above: Performed By: #### C BC #### [facility] [address] [place] [address] [address] Jose Holley Lymphocytes/100 WBC (Bld) 18.5 % Critically low 20.5-60.0 [facility] Comment on above: Performed By: #### C BC #### [facility] [address] [place] [address] Dr. Jose Holley MANUAL DIFF REQ NO Normal [facility] Comment on above: Performed By: #### C BC #### [facility] [address] [place] [address] Dr. Jose Holley MCH (RBC) [Entitic mass] 31.3 pg Normal 26.7-34.0 [facility] Comment on above: Performed By: #### C BC #### [facility] [address] [place] [address] Dr. Jose Holley MCHC (RBC) [Mass/Vol] 33.7 g/dL Normal 29.9-35.2 [facility] Comment on above: Performed By: #### C BC #### [facility] [address] [place] [address] Dr. Jose Holley MCV (RBC) [Entitic vol] 92.8 fL Normal 81.0-99.0 [facility] Comment on above: Performed By: #### C BC #### [facility] [address] [place] [address] Dr. Jose Holley MONO # 0.5 103/ul Normal 0.3-0.8 [facility] Comment on above: Performed By: #### C BC #### [facility] [address] [place] [address] Dr. Jose Holley Monocytes/100 WBC (Bld) 4.7 % Normal 1.7-12.0 [facility] Comment on above: Performed By: #### C BC #### [facility] [address] [place] [address] Dr. Jose Holley NEUT # 8.1 103/ul Critically high 1.4-6.5 [facility] Comment on above: Performed By: #### C BC #### [facility] [address] [place] [address] Dr. Jose Holley Neutrophils/100 WBC (Bld) 73.5 % Normal 43.0-75.0 [facility] Comment on above: Performed By: #### C BC #### [facility] [address] [place] [address] Dr. Jose Holley Platelet mean volume (Bld) [Entitic vol] 10.6 fL Normal 9.5-13.5 [facility] Comment on above: Performed By: #### C BC #### [facility] [address] [place] [address] Dr. Jose Holley PLT 261 103/ul Normal 150-450 [facility] Comment on above: Performed By: #### C BC #### [facility] [address] [place] [address] Dr. Jose Holley RBC 4.47 106/ul Normal 4.20-5.40 [facility] Comment on above: Performed By: #### C BC #### [facility] [address] [place] [address] Dr. Jose Holley WBC 11.0 103/ul Normal 4.0-11.0 [facility] Comment on above: Performed By: #### C BC #### [facility] [address] [place] [address] Dr. Jose Holley CULTURE URINEon 02-04-2022 CULTURE URINE Culture Observations : LIGHT GROWTH OF MIXED GENITAL LASHELL. NO POTENTIAL PATHOGENS SEEN. Normal [facility] Comment on above: Performed By: #### C BC #### [facility] [address] [place], [place] [id number] Dr. Jose Holley TYPE AND SCREENon 02-04-2022 TYPE AND SCREEN Negative Normal The [facility] Comment on above: Performed By: #### C BC #### [facility] [address] [place] [address] Dr. Jose Holley No Panel Informationon 01-10 Please click on the link to view the study images Normal PW-KQMJL-Bep man 310 IVF Work Phone: Normal XF-LEQHA-LCO 7th [place] Work Phone: HCG, Beta Quantitativeon [...] performed using a different test methodology at [facility] than other [facility]. Direct result comparison should only be made within the same method. REF VALUESNON FEMALE <5MALES <5 Laboratory - Chemistry and C hemistry - challengeon 12-28-2021 TSH Qn Canceled MP-Associate Professor Of Art natanael-Mary 2100 DO Work Phone: Comment on above: TSH testing is perfo rmed using different testing methodology at [facility] than at other [facility]. Direct result comparisons should only be made within the same method. TSH Qn 3.47 m[IU]/L See Below CV-SPKTC-Dev man 310 IVF Work Phone: Comment on above: Reference Range: 0.4 4 - 3.98 TSH testing is performed using different testing methodology at [facility] than at other [facility]. Direct result comparisons should only be [...] (V26.49) (Z31.69) Encounter to determine viability of (V23.) (O36.80X0) Endometriosis (617.9) (N80.9) Female infertility (628.9) (N97.9) Fertility testing (V2.) (Z31.41) demise due to miscarriage (634.90) (O03.9) [...] HCG measurement is performed using the [employer] [place] Access Immunoassay which detects intact HCG and free beta HCG subunit. This test is not indicated for use as a tumor marker. HCG testing is performed using a different test methodology at [facility] than other [facility]. Direct result comparison should only be made within the same method. 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 [facility] Progesterone, Serumon 2021 Progesterone [Mass/Vol] 26.6 ng/mL XK-FGSHR-Eqm man 310 IVF Work Phone: Comment on above: Progesterone is perf ormed using the [employer] Access Immunoassay. Progesterone testing is performed using a different test methodology at [facility] than other [facility]. Direct result comparison should only be made within the same method.REF VALUESMALE <0.2-0.8 FOLLICULAR PHASE <0.2-1.5 LUTEAL PHASE 7.4-15.4 POSTMENOPAUSAL <0.2-0.2 1ST TRIMESTER 12.0-84.0 2ND TRIMESTER 10.2-58.8 3RD TRIMESTER 46.5-160 Estradiol, Serumon E2 [Mass/Vol] 348 pg/mL MG-OBGYN-Ri s man 310 IVF Work Phone: Comment on above: Estradiol measuremen t is performed using the [employer] Access Estradiol Immunoassay. Estradiol testing is performed using a different test methodology at [facility] than other [facility]. Direct result comparison should only be [...] is performed using different testing methodology at [facility] than at other [facility]. Direct result comparisons should only be made within the same method. No Panel Informationon 12-04 Please click on the link to view the study images Normal Anthony Marmolejo IVF Work Phone: Progesterone, Serumon 2021 Progesterone [Mass/Vol] 0.1 ng/mL Anthony Marmolejo IVF Work Phone: Comment on above: Progesterone is perf ormed using the [employer] Access Immunoassay. Progesterone testing is performed using a different test methodology at [facility] than other [facility]. Direct result comparison should only be made within the same method.REF VALUESMALE <0.2-0.8 FOLLICULAR PHASE <0.2-1.5 LUTEAL PHASE 7.4-15.4 POSTMENOPAUSAL <0.2-0.2 1ST TRIMESTER 12.0-84.0 2ND TRIMESTER 10.2-58.8 3RD TRIMESTER 46.5-160 CBC AUTO DIFFon 11-15-2021 BASO # 0.1 103/ul Normal 0.0-0.1 [facility] Comment on above: Performed By: #### C BC #### [facility] [address] [place], [place] [address] Dr. Jose Holley Basophils/100 WBC (Bld) 0.8 % Normal 0.2-2.0 [facility] Comment on above: Performed By: #### C BC #### [facility] [address] [place] [address] Dr. Jose Holley EO # 0.1 103/ul Normal 0.0-0.7 [facility] Comment on above: Performed By: #### C BC #### [facility] [address] [place] [address] Dr. Jose Holley Eosinophils/100 WBC (Bld) 0.9 % Normal 0.9-7.0 [facility] Comment on above: Performed By: #### C BC #### [facility] [address] [place] [address] Dr. Jose Holley Erythrocyte distribution width (RBC) [Ratio] 13.9 % Normal 11.0-15.0 [facility] Comment on above: Performed By: #### C BC #### [facility] [address] [place] [address] Dr. Jose Holley Hematocrit (Bld) [Volume fraction] 41.8 % Normal 36.0-48.0 [facility] Comment on above: Performed By: #### C BC #### [facility] [address] [place] [address] Dr. Jose Holley Hemoglobin (Bld) [Mass/Vol] 14.0 g/dL Normal 12.0-16.0 [facility] Comment on above: Performed By: #### C BC #### [facility] [address] [place] [address] Dr. Jose Holley IG # 0.02 10e3/ul Normal 0.00-0.03 [facility] Comment on above: Performed By: #### C BC #### [facility] [address] [place] [address] Dr. Jose Holley IG % 0.2 % Normal 0.0-0.5 [facility] Comment on above: Performed By: #### C BC #### [facility] [address] [place] [address] Dr. Jose Holley LYMPH # 1.7 103/ul Normal 1.2-3.8 [facility] Comment on above: Performed By: #### C BC #### [facility] [address] [place] [address] Dr. Jose Holley Lymphocytes/100 WBC (Bld) 19.9 % Critically low 20.5-60.0 [facility] Comment on above: Performed By: #### C BC #### [facility] [address] [place] [address] Dr. Jose Holley MANUAL DIFF REQ NO Normal [facility] Comment on above: Performed By: #### C BC #### [facility] [address] [place] [address] Dr. Jose Holley MCH (RBC) [Entitic mass] 30.7 pg Normal 26.7-34.0 [facility] Comment on above: Performed By: #### C BC #### [facility] [address] [place] [address] Dr. Jose Holley MCHC (RBC) [Mass/Vol] 33.5 g/dL Normal 29.9-35.2 [facility] Comment on above: Performed By: #### C BC #### [facility] [address] [place] [address] Dr. Jose Holley MCV (RBC) [Entitic vol] 91.7 fL Normal 81.0-99.0 [facility] Comment on above: Performed By: #### C BC #### [facility] [address] [place] [address] Dr. Jose Holley MONO # 0.6 103/ul Normal 0.3-0.8 [facility] Comment on above: Performed By: #### C BC #### [facility] [address] [place] [address] Dr. Jose Holley Monocytes/100 WBC (Bld) 6.5 % Normal 1.7-12.0 [facility] Comment on above: Performed By: #### C BC #### [facility] [address] [place] [address] Dr. Jose Holley NEUT # 6.2 103/ul Normal 1.4-6.5 [facility] Comment on above: Performed By: #### C BC #### [facility] [address] [place] [address] Dr. Jose Holley Neutrophils/100 WBC (Bld) 71.7 % Normal 43.0-75.0 [facility] Comment on above: Performed By: #### C BC #### [facility] [address] [place] [address] Dr. Jose Holley Platelet mean volume (Bld) [Entitic vol] 10.7 fL Normal 9.5-13.5 [facility] Comment on above: Performed By: #### C BC #### [facility] [address] [place] [address] Dr. Jose Holley PLT 230 103/ul Normal 150-450 [facility] Comment on above: Performed By: #### C BC #### [facility] [address] [place] [address] Dr. Jose Holley RBC 4.56 106/ul Normal 4.20-5.40 [facility] Comment on above: Performed By: #### C BC #### [facility] [address] [place] [address] Dr. Jose Holley WBC 8.7 103/ul Normal 4.0-11.0 [facility] Comment on above: Performed By: #### C BC #### [facility] [address] [place] [address] Dr. Jose Holley LIPID PROFILEon 11-15-2021 CHOL-HDL RATIO NORM SEE BELOW Normal [facility] Comment on above: Result Comment: 3.3 - 4.4 LOW RISK 4.4 - 7.1 AVERAGE RISK 7.1 - 11.0 MODERATE RISK >11.0 HIGH RISK Performed By: #### C MP, LIPID #### [facility] [address] [place] [address] Dr. Jose Holley Cholesterol [Mass/Vol] 178 mg/dL Normal <=200 [facility] Comment on above: Performed By: #### C MP, LIPID #### [facility] [address] [place] [address] Dr. Jose Holley Cholesterol in HDL [Mass/Vol] 43 mg/dL Normal 40-60 [facility] Comment on above: Performed By: #### C MP, LIPID #### [facility] [address] [place] [address] [address] Jose Holley Cholesterol in LDL [Mass/Vol] 120.4 mg/dL Normal [facility] Comment on above: Performed By: #### C MP, LIPID #### [facility] [address] [place] [address] Dr. Jose Holley Cholesterol.total/C holesterol in HDL [Mass ratio] 4.1 {ratio} Normal [facility] Comment on above: Performed By: #### C MP, LIPID #### [facility] [address] [place] [address] Dr. Jose Holley HDL NORMAL > or = 60 mg/dl - LO W CARDIOVASCULAR RISK <40 mg/dl - HIGH CARDIOVASCULAR RISK Normal [facility] Comment on above: Performed By: #### C MP, LIPID #### [facility] [address] [place] [address] Dr. Jose Holley LDL CALC NORMAL SEE BELOW Normal [facility] Comment on above: Result Comment: <100 mg/dl OPTIMAL 100 - 129 mg/dl NEAR OR ABOVE OPTIMAL 130 - 159 mg/dl BORDERLINE HIGH 160 - 189 mg/dl HIGH >190 mg/dl VERY HIGH Performed By: #### C MP, LIPID #### [facility] [address] [place] [address] Dr. Jose Holley Triglyceride [Mass/Vol] 73 mg/dL Normal <=150 [facility] Comment on above: Performed By: #### C MP, LIPID #### [facility] [address] [place] [address] Dr. Jose Holley VLDL CALC 14.6 mg/dL Normal [facility] Comment on above: Performed By: #### C MP, LIPID #### [facility] [address] [place] [address] Dr. Jose Holley PROF 14(COMP METB)on 022 Albumin [Mass/Vol] 3.5 g/dL Normal 3.4-5.0 [facility] Comment on above: Performed By: #### C MP, LIPID #### [facility] [address] [place] [address] Dr. Jose Holley Albumin/Globulin [Mass ratio] 0.8 {ratio} Normal [facility] Comment on above: Performed By: #### C MP, LIPID #### [facility] [address] [address] [address] Jose Holley ALP [Catalytic activity/Vol] 51 U/L Normal 46-116 [facility] Comment on above: Performed By: #### C MP, LIPID #### [facility] [address] [address] [address] Jose Holley ALT [Catalytic activity/Vol] 27 U/L Normal 14-59 [facility] Comment on above: Performed By: #### C MP, LIPID #### [facility] [address] [address] [address] Jose Holley Anion gap [Moles/Vol] 11.5 mmol/L Normal [facility] Comment on above: Performed By: #### C MP, LIPID #### [facility] [address] [place] [address] Dr. Jose Holley AST [Catalytic activity/Vol] 18 U/L Normal 15-37 [facility] Comment on above: Performed By: #### C MP, LIPID #### [facility] [address] [address] [address] Jose Holley Bilirubin [Mass/Vol] 0.2 mg/dL Normal 0.2-1.0 [facility] Comment on above: Performed By: #### C MP, LIPID #### [facility] [address] [address] [address] Jose Holley Calcium [Mass/Vol] 8.5 mg/dL Normal 8.5-10.1 [facility] Comment on above: Performed By: #### C MP, LIPID #### [facility] [address] [address] [address] Jose Holley Chloride [Moles/Vol] 105 mmol/L Normal 98-107 [facility] Comment on above: Performed By: #### C MP, LIPID #### [facility] [address] [address] [address] Jose Holley CO2 [Moles/Vol] 24.5 mmol/L Normal 21.0-32.0 [facility] Comment on above: Performed By: #### C MP, LIPID #### [facility] [address] [address] [address] Jose Holley Creatinine [Mass/Vol] 0.77 mg/dL Normal 0.55-1.02 [facility] Comment on above: Performed By: #### C MP, LIPID #### [facility] [address] [address] [address] Jose Holley EGFR-AF ANGUILLAN >60 Normal >=60 [facility] Comment on above: Performed By: #### C MP, LIPID #### [facility] [address] [address] [address] Jose Holley EGFR-NON AF ANGUILLAN >60 Normal >=60 [facility] Comment on above: Performed By: #### C MP, LIPID #### [facility] [address] [address] [address] Jose Holley Globulin (S) [Mass/Vol] 4.2 g/dL Normal [facility] Comment on above: Performed By: #### C MP, LIPID #### [facility] [address] [address] [address] Jose Holley Glucose [Mass/Vol] 89 mg/dL Normal 74-106 [facility] Comment on above: Performed By: #### C MP, LIPID #### [facility] [address] [address] [address] Jose Holley Potassium [Moles/Vol] 4.0 mmol/L Normal 3.5-5.1 [facility] Comment on above: Performed By: #### C MP, LIPID #### [facility] [address] [address] [address] Jose Holley Protein [Mass/Vol] 7.7 g/dL Normal 6.4-8.2 [facility] Comment on above: Performed By: #### C MP, LIPID #### [facility] [address] [address] [address] Jose Holley Sodium [Moles/Vol] 137 mmol/L Normal 136-145 [facility] Comment on above: Performed By: #### C MP, LIPID #### [facility] [address] [place], [place] [address] Dr. Jose Holley Urea nitrogen [Mass/Vol] 18.0 mg/dL Normal 7.0-18.0 [facility] Comment on above: Performed By: #### C MP, LIPID #### [facility] [address] [place], [place] [address] Dr. Jose Holley Urea nitrogen/Creatinine [Mass ratio] 23.4 mg/mg Normal [facility] Comment on above: Performed By: #### C MP, LIPID #### [facility] [address] [place], [place] [address] Dr. Jose Holley TSHon 11-15-2021 TSH 2.686 uIU/mL Normal 0.358-3.740 [facility] Comment on above: Performed By: #### T SH #### [facility] [address] [address] [address] 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 Lup (more content not included)... Normal [facility] Chart Updateon 09-21-2021 Chart Update Chart Update Pt presented for pap but could not obtain as pt was day 1 of menses. Will plan to obtain pap at hysteroscopy. Zari Oviedo CNP 09/21/2021 16:15 Signatures Electronically signed by : RONA Pelayo; Sep 21 2021 4:15PM EST (Author) Normal [facility] PUFF IRON OPERATOR - Office Visiton 08-30 PUFF IRON OPERATOR - Office Visit No report was sent Normal [facility] Tobacco Screening.on 022 Fall risk assessment a) No falls within the last year DJ-AGFLI-Upe man 320 Work Phone: Last menstrual period start date 22Aug2021 FY-CJVIX-Jub man 320 Work Phone: Tobacco use status CP b) No FR-FEQYZ-Lqd man 320 Work Phone: Chart Updateon 09-12-2021 [...] HCG, Beta Quantitativeon HCG.beta subunit Qn m[IU]/mL [employer]ars[employer] NetworkMERCHANDISE EXECUTIVESwipe.toCore[facility] A [facility]F Work Phone: Comment on above: Low-level [...] HCG measurement is performed using the [employer] Access Immunoassay which detects intact HCG and free beta HCG subunit. This test is not indicated for use as a tumor marker. HCG testing is performed using a different test methodology at [facility] than other [facility]. Direct result comparison should only be made within the same method. REF VALUESNON FEMALE <5MALES <5 Progesterone, Serumon 2021 Progesterone [Mass/Vol] 8.1 ng/mL RG-MLYFE-Wca cker IVF Work Phone: Comment on above: Progesterone is perf ormed using the [employer] Access Immunoassay. Progesterone testing is performed using a different test methodology at [facility] than other [facility]. Direct result comparison should only be [...] = N; Verified Transmission to [id number]; Last Updated By: [facility]; 08/31/2021 2:17:16 PM TSH WITH REFLEX TO [...] Aug 31 2021 2:20PM EST (Author) Normal [facility] PUFF IRON OPERATOR - Procedure Visiton 0 08-31-2021 PUFF IRON OPERATOR - Procedure Visit Orders Subclinical hypothyroidism Start: [...] (M99.07) Spontaneous miscarriage (634.90) (O03.9) 9 wk DANSC 11/02/2018 Steroid long-term use (V58.65) Strain of [...] rRNA WESLEY+probe Ql (Unsp spec) Negative Negative MX-ZOTWR-Eon cker 206A IVF Work Phone: Comment on above: The APTIMA Combo 2 a ssay is FDA-approved for Chlamydia trachomatis and Neisseria gonorrhoeae testing on female endocervical and vaginal swabs, ThinPrep liquid pap samples, male urine samples and urethral swabs. Performance characteristics for Chlamydia trachomatis and Neisseria gonorrhoeae testing on specific nmk-ZLC-xdmozpvk sample types (female urine samples) have been validated by [facility]. This laboratory is certified by CLIA to perform high complexity testing. Samples from all other sites are not validated for this method. N. gonorrhoeae rRNA WESLEY+probe Ql (Unsp spec) Negative Negative CG-LCSVG-Ggu cker 206A IVF Work Phone: Comment on above: SOURCE: Urine The AP ARHEEM Combo 2 assay is FDA-approved for Chlamydia trachomatis and Neisseria gonorrhoeae testing on female endocervical and vaginal swabs, ThinPrep liquid pap samples, male urine samples and urethral swabs. Performance characteristics for Chlamydia trachomatis and Neisseria gonorrhoeae testing on specific odm-GXH-mfeuabmo sample types (female urine samples) have been validated by [facility]. This laboratory is certified by CLIA to perform high complexity testing. Samples from all other sites are not validated for this method. HIV 1/2 ANTIGEN/ANTIBODY SCR EEN WITH REFLEX TO CONFIRMATIONon 08-30-2021 HIV 1+2 Ab Qn (S) Non-Reactive See Below MG-MERCHANDISE EXECUTIVE-Tube Cutter cker 206A IVF Work Phone: Comment on above: SOURCE: Reference Ra nge: NONREACTIVE HIV Ag/Ab screen is performed using the Siemens [employer] HIV Ag/Ab Combo assay which detects the presence of HIV p24 antigen as well as antibodies to HIV-1 (Group M and O) and HIV-2..No laboratory evidence of HIV infection. If acute HIV infection is suspected, consider testing for HIV RNA by PCR (viral load). Hemoglobin A1Con 08-30-2021 Glucose [Mass/Vol] 94 mg/dL MG-OBG YN-Tube Cutter cker IVF Work Phone: HbA1c (Bld) [Mass fraction] 4.9 % ZR-GGZSF-Eoc cker IVF Work Phone: Comment on above: Diagnosis of Diabete s-Adults Non-Diabetic: < or = 5.6% Increased risk for developing diabetes: 5.7-6.4% Diagnostic of diabetes: > or = 6.5%. Monitoring of Diabetes Age (y) Therapeutic Goal (%) Adults: >18 <7.0 Pediatrics: 13-18 <7.5 7-12 <8.0 0- 6 7.5-8.5 [place] [employer]. Diabetes Care 33(S1), Mar 2009. Hepatitis B Surface Antigeno n 08-30-2021 Hepatitis B Surface Antigen Non-Reactive See Below MM-FVWRO-Ijg cker IVF Work Phone: Comment on above: [...] Blood bankon ABO group Nom (Bld) A MG-MERCHANDISE EXECUTIVE-Tube Cutter cker IVF Work Phone: Blood group antibody screen Ql Negative UF-PVQJE-Okp cker IVF Work Phone: Rh immune globulin screen (Bld) [Interp] Positive FC-FOXOE-Bcf cker IVF Work Phone: Laboratory - Chemistry and C hemistry - challengeon 08-30-2021 TSH Qn 4.86 m[IU]/L above high threshold See Below KC-CAPBS-Lxz cker A IVF Work Phone: Comment on above: Reference Range: 0.4 4 - 3.98 TSH testing is performed using different testing methodology at [facility] than at other [facility]. Direct result comparisons should only be made within the same method. MRI Breast Bilateral with co ntrast full protocolon 08-30-2021 MRI Breast Bilateral with contrast full protocol Normal CF-HVYBB-Oma cker IVF Work Phone: Rubella IgG Antibodyon 08-30 Rubella virus IgG IA Ql Positive [facility] IVF Work Phone: Comment on above: [...] IgG+IgM IA Ql (S) Non-Reactive See Below ZJ-FXDQP-Jgu cker A IVF Work Phone: Comment on above: SOURCE: Reference Ra nge: NONREACTIVENo significant level of Treponema pallidum antibody detected. Repeat testing in 2 to 4 weeks may be considered if early infection or incubating syphilis infection is suspected. T4 - Free Thyroxine, Serumon 08-30-2021 Free T4 [Mass/Vol] 0.83 ng/dL See Below -OBG YN-[facility] A [facility]F Work Phone: Comment on above: Reference Range: 0.6 1 - 1.12 Thyroxine Free testing is performed using different testing methodology at [facility] than at other [facility]. Direct result comparisons should only be [...] IgG IA Ql (S) Positive NEGATIVE MG-OBGY N-Tube Cutter cker 206A IVF Work Phone: Comment on [...] Jul 27 2021 4:25PM EST (Author) Normal [facility] PUFF IRON OPERATOR - Office Visiton 05-29 PUFF IRON OPERATOR - Office Visit Diagnoses/Problems Assessed Visit for [...] consent was requested and obtained from WILD CALVO on this date, 06/15/2021 01:30 PM , [...] down to pumping twice per day still [employer]ANT OPERATOR HISTORY: History of STI or PID: [...] a) No falls within the last year HN-WOGGD-EIK 7th [place] Work Phone: Last menstrual period start date N/A BS-IUAYU-CEA 7th [place] Work Phone: Tobacco use status CP b) No PJ-PWGEK-WFY 7th [place] Work Phone: Immunoglobulin G Level, Seru mon 06-08-2021 IgG [Mass/Vol] 652 mg/dL below low threshold 700 - 1600 MP-Associate Professor Of Art s-Mary 2100 DO Work Phone: Comment on above: MONOCLONAL PROTEINS MAY CAUSE FALSELY LOWRESULTS IN THIS ASSAY. SERUM PROTEINELECTROPHORESIS SHOULD BE DONE THEFIRST TEST TO EVALUATE MONOCLONAL GAMMOPATHY. Laboratory - Allergyon 06-08 A. alternata IgE Qn (S) <0.10 <0.35 MP-Associate Professor Of Art [employer] Work Phone: Comment on above: SEE IMMUNOCAP INTERP .IGE A. fumigatus IgE Qn (S) <0.10 <0.35 MP-Associate Professor Of Art [employer] Work Phone: Comment on above: SEE IMMUNOCAP INTERP .IGE [place] house dust mite IgE Qn (S) <0.10 <0.35 MP-Associate Professor Of Art [employer] Work Phone: Comment on above: SEE IMMUNOCAP INTERP .IGE [place] IgE Qn (S) <0.10 <0.35 MP-Associate Professor Of Art [employer] Work Phone: Comment on above: SEE IMMUNOCAP INTERP .IGE Bermuda grass IgE Qn (S) <0.10 <0.35 MP-Associate Professor Of Art s-Arnett Work Phone: Comment on above: SEE IMMUNOCAP INTERP .IGE Boxelder IgE Qn (S) <0.10 <0.35 MP-Al lergist s-Arnett Work Phone: Comment on above: SEE IMMUNOCAP INTERP .IGE C. herbarum IgE Qn (S) <0.10 <0.35 [employer] Work Phone: Comment on above: SEE IMMUNOCAP INTERP .IGE [place] IgE Qn (S) <0.10 <0.35 [employer] Work Phone: Comment on above: SEE IMMUNOCAP INTERP .IGE Cat dander IgE Qn (S) 0.15 {KU/L} <0.35 [employer] Work Phone: Comment on above: SEE IMMUNOCAP INTERP .IGE Cockroach IgE Qn (S) <0.10 <0.35 [employer] 2100 DO Work Phone: Comment on above: SEE IMMUNOCAP INTERP .IGE Common Pigweed IgE Qn (S) <0.10 <0.35 [employer] Work Phone: Comment on above: SEE IMMUNOCAP INTERP .IGE Mercer IgE Qn (S) <0.10 <0.35 [employer] Work Phone: Comment on above: SEE IMMUNOCAP INTERP .IGE Dog dander IgE Qn (S) <0.10 <0.35 [employer] Work Phone: Comment on above: SEE IMMUNOCAP INTERP .IGE Zambian plantain IgE Qn (S) <0.10 <0.35 [employer] Work Phone: Comment on above: SEE IMMUNOCAP INTERP .IGE house dust mite IgE Qn (S) <0.10 <0.35 Qustreet 2100 DO Work Phone: Comment on above: SEE IMMUNOCAP INTERP .IGE Goosefoot IgE Qn (S) <0.10 <0.35 [employer] Work Phone: Comment on above: SEE IMMUNOCAP INTERP .IGE Jackson grass IgE Qn (S) <0.10 <0.35 [employer]-Associate Professor Of Art [employer] Work Phone: Comment on above: SEE IMMUNOCAP INTERP .IGE Kentucky blue grass IgE Qn (S) <0.10 <0.35 MP-Associate Professor Of Art [employer] Work Phone: Comment on above: SEE IMMUNOCAP INTERP .IGE Mountain Juniper IgE Qn (S) <0.10 <0.35 MP-Associate Professor [employer] Work Phone: Comment on above: SEE IMMUNOCAP INTERP .IGE P. notatum IgE Qn (S) <0.10 <0.35 [employer]-Associate Professor [employer] Work Phone: Comment on above: SEE IMMUNOCAP INTERP .IGE Pecan or Collier Tree IgE Qn (S) <0.10 <0.35 [employer]-Associate Professor [employer] Work Phone: Comment on above: SEE IMMUNOCAP INTERP .IGE Saltwort IgE Qn (S) <0.10 <0.35 [employer]-Al lergist [employer] Work Phone: Comment on above: SEE IMMUNOCAP INTERP .IGE Sheep Golden Gate IgE Qn (S) <0.10 <0.35 [employer]-Associate Professor Of Art [employer] Work Phone: Comment on above: SEE IMMUNOCAP INTERP .IGE Silver Birch IgE Qn (S) <0.10 <0.35 [employer]-Associate Professor Of Art [employer] Work Phone: Comment on above: SEE IMMUNOCAP INTERP .IGE Royer IgG Qn (S) <0.10 <0.35 [employer]-All [employer] Work Phone: Comment on above: SEE IMMUNOCAP INTERP .IGE Total IgE RAST Qn (S) 5.5 {KU/L} See Below [employer]-Associate Professor Of Art [employer] Work Phone: Comment on above: Reference Range: 0.0 - 214.0 Note: Omalizumab (Xolair, Genentech; humanized IgG1 antihuman IgE Fc) treatment does not significantly interfere with the accuracy of total IgE on the ImmunoCAP ([employer]) platform. J Allergy Clin Immunol 2006;117:759-66). Allergens, parasitic diseases, smoking, and alcohol consumption have been reported to increase levels of total IgE in serum. White Vadim IgE Qn (S) <0.10 <0.35 [employer] Work Phone: Comment on above: SEE IMMUNOCAP INTERP .IGE White Elm IgE Qn (S) <0.10 <0.35 [employer] Work Phone: Comment on above: SEE IMMUNOCAP INTERP .IGE White mulberry IgE Qn (S) <0.10 <0.35 [employer]-Associate Professor Of [employer] Work Phone: Comment on above: SEE IMMUNOCAP INTERP .IGE Drumright IgE Qn (S) <0.10 <0.35 [employer] Work Phone: Comment on above: SEE IMMUNOCAP INTERP .IGE Laboratory - Microbiology an d Antimicrobial susceptibilityon 06-08-2021 S. pneumoniae 1 IgG (S) [Mass/Vol] 0.7 ug/mL below low threshold >1.3 MP-Associate Professor Of [employer] Work Phone: S. pneumoniae 12 IgG (S) [Mass/Vol] <0.1 below low threshold >1.3 [employer]-Associate Professor Of [employer] Work Phone: S. pneumoniae 14 IgG (S) [Mass/Vol] 0.2 ug/mL below low threshold >1.3 MP-Associate Professor [employer] Work Phone: S. pneumoniae 17 IgG (S) [Mass/Vol] 0.4 ug/mL below low threshold >1.3 MP-Associate Professor [employer] Work Phone: S. pneumoniae 19 IgG (S) [Mass/Vol] 0.5 ug/mL below low threshold >1.3 MP-Associate Professor Of [employer] Work Phone: S. pneumoniae 2 IgG (S) [Mass/Vol] 0.9 ug/mL below low threshold >1.3 [employer] Work Phone: S. pneumoniae 20 IgG (S) [Mass/Vol] 1.5 ug/mL >1.3 [employer] Work Phone: S. pneumoniae 22 IgG (S) [Mass/Vol] 0.6 ug/mL below low threshold >1.3 [employer] Work Phone: S. pneumoniae 23 IgG (S) [Mass/Vol] <0.1 below low threshold >1.3 [employer] Work Phone: S. pneumoniae 3 IgG (S) [Mass/Vol] 2.0 ug/mL >1.3 [employer] Work Phone: S. pneumoniae 34 IgG (S) [Mass/Vol] 1.1 ug/mL below low threshold >1.3 [employer] Work Phone: S. pneumoniae 4 IgG (S) [Mass/Vol] 0.1 ug/mL below low threshold >1.3 [employer] Work Phone: S. pneumoniae 43 IgG (S) [Mass/Vol] 1.4 ug/mL >1.3 [employer] Work Phone: S. pneumoniae 5 IgG (S) [Mass/Vol] 0.5 ug/mL below low threshold >1.3 [employer] Work Phone: S. pneumoniae 8 IgG (S) [Mass/Vol] 2.8 ug/mL >1.3 [employer] Work Phone: S. pneumoniae 9 IgG (S) [Mass/Vol] 3.7 ug/mL >1.3 [employer] Work Phone: S. pneumoniae Moroccan type 15B IgG (S) [Mass/Vol] 1.2 ug/mL below low threshold >1.3 MPBeiZAssociate Professor Of Art s-[employer]nett Work Phone: S. pneumoniae Moroccan type 18C IgG (S) [Mass/Vol] 0.5 ug/mL below low threshold >1.3 MP-Associate Professor Of Art [employer] Work Phone: S. pneumoniae Moroccan type 19A IgG (S) [Mass/Vol] 1.8 ug/mL >1.3 MP-Associate Professor Of Art [employer] Work Phone: S. pneumoniae Moroccan type 33F IgG (S) [Mass/Vol] 1.0 ug/mL below low threshold >1.3 MP-Associate Professor Of Art [employer] Work Phone: Comment on above: Perfor med At:[facility] [address] [employer] [address] [address]Cefacgwyev Director: Elmer Gonzalez Ph.D., BCLD (ABB)CLIA#: [id number]: S. pneumoniae Moroccan type 6B IgG (S) [Mass/Vol] 1.0 ug/mL below low threshold >1.3 MP-Associate Professor Of Art [employer] Work Phone: S. pneumoniae Moroccan type 7F IgG (S) [Mass/Vol] 3.5 ug/mL >1.3 MP-Associate Professor Of Art [employer] Work Phone: S. pneumoniae Moroccan type 9V IgG (S) [Mass/Vol] 1.2 ug/mL below low threshold >1.3 MP-Associate Professor Of Art [employer] Work Phone: Kamil[place] Binding Lectinon 05-29 [place] Binding Lectin 503 ng/mL >100 MP-Associate Professor Of Art [employer] Work Phone: Comment on above: Investigators most f requently use 100 ng/mL as the threshold for defining an MBL deficiency. MBL values below this value may be associated with increased susceptability to infection.*This test was developed and its performance characteristics determined by [employer]. It has not been cleared or approved by the U.S. Food and Drug Administration. Performed At:[facility] [employer] [address] [place] [address]Zfekguwpgm Director: Elmer Gonzalez Ph.D., BCLD (ABB)CLIA#: [id number]: No Panel Informationon 06-08 SEE COMMENT -Associate Professor Of Art [employer] 2100 DO Work Phone: Comment on above: REFERENCE RANGE (IMM UNOCAP) IGE KU/L CLASS INTERPRETATION < 0.10 0 BELOW DETECTION 0.10- 0.34 0/1 EQUIVOCAL 0.35- 0.69 1 LOW POSITIVE 0.70- 3.49 2 MODERATE POSITIVE 3.50- 17.49 3 HIGH DMZFMXAY38.50- 49 4 VERY HIGH PILTXPIE48 - 99 5 VERY HIGH POSITIVE >100 6 VERY HIGH POSITIVE <0.10 <0.35 -Associate Professor Of Art [employer] Work Phone: Comment on above: SEE IMMUNOCAP INTERP .IGE Tetanus Abon 06-08-2021 C. tetani IgG IA Qn (S) 3.47 {IU/mL} <0.10 -Associate Professor Of Art [employer] 2100 DO Work Phone: Comment on above: Interpretation: Non- Protective <0.10 Protective >=0.10 Results for this test are for research purposes only by the assay's fence laborer. The performance characteristics of this product have not been established. Results should not be used as a diagnostic procedure without confirmation of the diagnosis by another medically established diagnostic product or procedure. CT Sinus without Contraston 05-21-2021 CT Sinuses WO contrast Normal -Associate Professor Of Art [employer] 2100 DO Work Phone: Office Visiton 01-25-2022 Follow-up visit Diagnoses/Problems Recurrent sinusitis (473.9) (J32.9) [...] deficiency disorder History of Present Illness WILD CALVO is a 41 year old female, new [...] infection (599.0) (more content not included)... Normal [facility] Antibody Assay, Diphtheriaon 01-31-2021 C. diphtheriae Ab IA Qn (S) 1.00 {IU/mL} <0.10 MP-Otolaryng ology-Sheffi eld Work Phone: Comment on above: Interpretation: Non- Protective <0.10 Protective >=0.10 For research use only. Complement, Total, Son 01-31 Complement total hemolytic CH50 Qn 75 [arb'U]/mL 30-75 MP-Otolaryng ology-Sheffi eld Work Phone: Comment on above: Test Performed by:[facility] [place] [place] [id number] Director: Jero Khan M.D. Ph.D.; CLIA# [id number] H. Influenza B Ab, IgGon H. influenzae [...] developed and its performance characteristics determined by [employer]. It has not been cleared or approved by the US Food and Drug Administration. This test was performed in a CLIA certified laboratory and is intended for clinical purposes.Performed By: [facility] [place] [id number] Director: Perlita Wheeler MD Immunoglobulin E Level, Seru mon 01-31-2021 IgE Qn 2 {IU/mL} 0 - 214 MP-Otolaryng lizzy-Ashvin benavidez Work Phone: Initial Visit (Otolaryngolog y)on [...] errors. Chief Complaint BILATERAL TM PERF DR. QAUILES ESCOBEDO History of Present IllnessPatient is a [...] first trime (more content not included)... Normal [facility] - Chemistry and C hemistry [...] MP-Otolaryng ology-Sheffi eld Work Phone: S. pneumoniae Moroccan type 15B IgG (S) [Mass/Vol] <0.1 below low threshold >1.3 MP-Otolaryng ology-Sheffi eld Work Phone: S. pneumoniae Moroccan type 18C IgG (S) [Mass/Vol] 0.2 ug/mL below low threshold >1.3 MP-Otolaryng ology-Sheffi eld Work Phone: S. pneumoniae Moroccan type 19A IgG (S) [Mass/Vol] 0.4 ug/mL below low threshold >1.3 MP-Otolaryng ology-Sheffi eld Work Phone: S. pneumoniae Moroccan type 33F IgG (S) [Mass/Vol] <0.1 below low threshold >1.3 MP-Otolaryng ology-Sheffi eld Work Phone: Comment on above: *This test was david palmer and its performance characteristics determined by [facility]. It has not been cleared or approved by the U.S. Food and Drug Administration. Performed At:[employer] [address] [address]Slxlkvvskr Director: Elmer oGnzalez Ph.D., BCLD (ABB)CLIA#: [id number]: S. pneumoniae Moroccan type 6B IgG (S) [Mass/Vol] <0.1 below low threshold >1.3 MP-Otolaryng ology-Sheffi eld Work Phone: S. pneumoniae Moroccan type 7F IgG (S) [Mass/Vol] 1.2 ug/mL below low threshold >1.3 MP-Otolaryng ology-Sheffi eld Work Phone: S. pneumoniae Moroccan type 9V IgG (S) [Mass/Vol] 0.2 ug/mL [...] Authorization (EUA) and has been verified by [facility] ([facility]). This test is only authorized for the duration of time that circumstances exist to justify the authorization of the emergency use of in vitro diagnostic tests for the detection of SARS-CoV-2 virus and/or diagnosis of COVID-19 infection under section 564(b)(1) of the Act, 21 U.S.C. 360bbb-3(b)(1), unless the authorization is terminated or revoked sooner. [facility] is certified under CLIA-88 as qualified to perform high complexity testing. Testing is performed in the [facility] located at [address] [place] [address].SARS-CoV-2/Flu/RSV Multiplex Test: Fact sheet for providers: https://www.fda.gov/media/792147/downloadFact sheet for patients: https://www.fda.gov/media/273674/download Otheron 04-28-2020 Interpreted by: NVEPOFOV63/29/21 16:14Indication======== Suspected Problem with Growth, Class 2 [...] GA 34 w + 0 dAssigned LAURA: 05/26/2020regnancy length 280 d Growth [...] movements2: Gross body movements2: tone2: Amniotic fluid volume/8 Biophysical profile scoreInterpretation: normal Maternal Structures Uterus / CervixUterus: VisualizedCervix: Not visualizedOvaries / Tubes / AdnexaRt ovary: Not visualizedLt ovary: Not visualized Method====== Transabdominal ultrasound examination. View: Poor viewElectronically signed by: EDD 04/28/20 16:14 Normal [facility] [address] Work Phone: Comment on above: ORDER REVISED TO A O B BIOPHYSICAL PROFILE (W/O NST) BY RADIOLOGIST; Original Order Number: [id number] ORDER REVISED TO A O B FOLLOW UP OR REPEAT SCAN BY RADIOLOGIST; Original Order Number: [id number] Hematologyon 04-26-2020 Hematocrit (Bld) [Volume fraction] 34.0 % below low threshold See Below [facility] [address] Work Phone: Comment on above: Reference Range: 36. 0 - 46.0 Hemoglobin (Bld) [Mass/Vol] 11.6 g/dL below low threshold See Below [facility] [address] Work Phone: Comment on above: Reference Range: 12. 0 - 16.0 MCV (RBC) [Entitic vol] 92 fL 80 - 100 [facility] [address] Work Phone: Platelets (Bld) [#/Vol] 150 {x10E9/L} 150 - 450 [place] [id number] Work Phone: RBC (Bld) [#/Vol] 3.70 {x10E12/L} below low threshold See Below [facility] [address] Work Phone: Comment on above: Reference Range: 4.0 0 - 5.20 WBC (Bld) [#/Vol] 0.0 {/100_WBC} 0.0 - 0.0 - WSPC-WSWH Mary [address] M Work Phone: WBC (Bld) [#/Vol] 10.9 {x10E9/L} 4.4 - 11.3 MP- WSPC-WSWH Mary [address] M Work Phone: Imm/Pathon 04-26-2020 Bacteria identified Aer cx Nom (Genital specimen) PATIENT: WILD CALVO LOCATION: [facility]#: [id number] : 76 AGE: SEX: F ORDERED BY: TJ CURRIE: VAG-RECTAL COLLECTED: 04/26/20 17:39ANTIBIOTICS AT NEISHA.: RECEIVED : 04/26/20 21:28SITE: Cervix R E S U L T S GROUP B STREP SCREEN FINAL 04/28/20 09:42 NEGATIVE FOR GROUP B BETA STREP. SC-ITUJ-EMES [place] [address] M Work Phone: Metabolic Panelon 04-26-2020 ALP [Catalytic activity/Vol] 81 U/L 33 - 110 ZN-HJZM-SSCC [place] [address] M Work Phone: Anion gap [Moles/Vol] 14 mmol/L 10 - 20 IY-ZNUH-ESKU Mary [address]72[address] M Work Phone: Bilirubin [Mass/Vol] 0.3 mg/dL 0.0 - 1.2 HU-TGDX-EOCD [place] [address] M Work Phone: Calcium [Mass/Vol] 8.9 mg/dL 8.6 - 10.3 MP-WSP C-WSWH [place] [address] M Work Phone: Chloride [Moles/Vol] 108 mmol/L above high threshold 98 - 107 XB-UUWS-TMJC [place] [address] M Work Phone: CO2 [Moles/Vol] 21 mmol/L 21 - 32 [facility] [address] M Work Phone: Creatinine [Mass/Vol] 0.69 mg/dL See Below IT-GWTY-IBJJ Mary [address]29[address] M Work Phone: Comment on above: Reference Range: 0.5 0 - 1.05 Glucose [Mass/Vol] 120 mg/dL above high threshold 74 - 99 IX-ZGSO-JLFNSTEFANIA Hernandez [address] M Work Phone: LDH [Catalytic activity/Vol] 169 U/L 84 - 246 ET-LVMH-BFRU [place] [address] M Work Phone: Potassium [Moles/Vol] 3.6 mmol/L 3.5 - 5.3 IA-LKSX-ZCDV Mary 91851 M Work Phone: Protein [Mass/Vol] 5.4 g/dL below low threshold 6.4 - 8.2 YY-ICBN-XOCT Mary 10044 M Work Phone: Sodium [Moles/Vol] 139 mmol/L 136 - 145 -[facility]SP [facility] [address] M Work Phone: Urea nitrogen [Mass/Vol] 14 mg/dL 6 - 23 CA-XVVC-JZUSSTEFANIA [place] [address]49[address] M Work Phone: Otheron 04-26-2020 Albumin BCP dye [Mass/Vol] 3.2 g/dL below low threshold 3.4 - 5.0 BQ-SUTH-UOKO Mary 745[address] M Work Phone: ALT With P-5'-P [Catalytic activity/Vol] 16 U/L 7 - 45 BS-FMYE-IJWT [place] [address] M Work Phone: Comment on above: Patients treated wit h Sulfasalazine may generate falsely decreased results for ALT. AST With P-5'-P [Catalytic activity/Vol] 21 U/L 9 - 39 XE-BTJO-FYGDSTEFANIA Hernandez [address] M Work Phone: Erythrocyte distribution width (RBC) [Ratio] 13.6 % See Below [facility] [address] Work Phone: Comment on above: Reference Range: 11. 5 - 14.5 MCHC (RBC) [Mass/Vol] 34.1 g/dL See Below YP-EQMB-BJNJ [place] [address] Work Phone: Comment on above: Reference Range: 32. 0 - 36.0 >60 >60 [place] [id number] Work Phone: Comment on above: CALCULATIONS OF RACQUEL MATED GFR ARE PERFORMED USING THE MDRD STUDY EQUATION FOR THE IDMS-TRACEABLE CREATININE METHODS. CLIN CHEM 2007;53:766-72 Total Protein, Urine Spoton 04-26-2020 Creatinine (U) [Mass/Vol] 555.0 mg/dL above high threshold See Below GX-XFEN-ZACF [place] [address] Work Phone: Comment on above: Reference Range: 20. 0 - 320.0 Protein (U) [Mass/Vol] 49 mg/dL above high threshold 5 - 24 [place] [id number] Work Phone: Protein/Creatinine (U) [Ratio] 0.09 {mg/mg_Creat} See Below [facility] [address] Work Phone: Comment on above: Reference Range: 0.0 0 - 0.17 Uric Acid, Serumon Urate [Mass/Vol] 7.0 mg/dL above high threshold 2.3 - 6.7 [facility] [address] Work Phone: Comment on above: Venipuncture immedia tely after or during the administration of Metamizole may lead to falsely low results. Testing should be performed immediately prior to Metamizole dosing. BASIC METABOLIC PANELon 12-2 Anion gap [Moles/Vol] 13 mmol/L Normal 10 - 20 [facility] Comment on above: Performed By: #### B HEBERT #### [address] [address] Calcium [Mass/Vol] 8.6 mg/dL Normal 8.6 - 10.3 [facility] Comment on above: Performed By: #### B MP #### [address] [address] Chloride [Moles/Vol] 105 mmol/L Normal 98 - 107 [facility] Comment on above: Performed By: #### B MP #### [address] [address] Creatinine [Mass/Vol] 0.54 mg/dL Normal 0.50 - 1.05 [facility] Comment on above: Performed By: #### B MP #### [address] [address] GFR- AM. >60 Normal >60 [facility] Comment on above: Result Comment: CALC ULATIONS OF ESTIMATED GFR ARE PERFORMED USING THE MDRD STUDY EQUATION FOR THE IDMS-TRACEABLE CREATININE METHODS. CLIN CHEM 2007;53:766-72 Performed By: #### B MP #### [address] [address] GFR-NON AM. >60 Normal >60 [facility] Comment on above: Performed By: #### B MP #### [address] [address] Glucose [Mass/Vol] 99 mg/dL Normal 74 - 99 [facility] Comment on above: Performed By: #### B MP #### [address] [address] HCO3 (Bld) [Moles/Vol] 22 mmol/L Normal 21 - 32 [facility] Comment on above: Performed By: #### B MP #### [address] [address] Potassium [Moles/Vol] 4.0 mmol/L Normal 3.5 - 5.3 [facility] Comment on above: Performed By: #### B MP #### [address] [place] [address] Sodium [Moles/Vol] 136 mmol/L Normal 136 - 145 [facility] Comment on above: Performed By: #### B MP #### [address] [address] Urea nitrogen [Mass/Vol] 10 mg/dL Normal 6 - 23 [facility] Comment on above: Performed By: #### B MP #### [address] [address] CBC AND DIFFERENTIALon 03-22 -2019 % AUTOMATED IMMATURE GRAN 1.3 % High 0.0 - 0.9 [facility] Comment on above: Result Comment: Irma ture Granulocyte Count (IG) includes promyelocytes, myelocytes and metamyelocytes but does not include bands. Percent differential counts (%) should be interpreted in the context of the absolute cell counts (cells/L). Performed By: #### C BCDF #### [address] [address] Basophils (Bld) [#/Vol] 0.04 10*3/uL Normal 0.00 - 0.10 [facility] Comment on above: Performed By: #### C BCDF #### [address] [address] Basophils/100 WBC (Bld) 0.4 % Normal 0.0 - 2.0 [facility] Comment on above: Performed By: #### C BCDF #### [address] [address] Eosinophils (Bld) [#/Vol] 0.14 10*3/uL Normal 0.00 - 0.70 [facility] Comment on above: Performed By: #### C BCDF #### [address] [address] Eosinophils/100 WBC (Bld) 1.3 % Normal 0.0 - 6.0 [facility] Comment on above: Performed By: #### C BCDF #### [address] [address] Erythrocyte distribution width (RBC) [Ratio] 13.3 % Normal 11.5 - 14.5 [facility] Comment on above: Performed By: #### C BCDF #### [address] [address] Hematocrit (Bld) [Volume fraction] 38.3 % Normal 36.0 - 46.0 [facility] Comment on above: Performed By: #### C BCDF #### [address] [address] Hemoglobin (Bld) [Mass/Vol] 12.8 g/dL Normal 12.0 - 16.0 [facility] Comment on above: Performed By: #### C BCDF #### [address] [address] Lymphocytes (Bld) [#/Vol] 1.22 10*3/uL Normal 1.20 - 4.80 [facility] Comment on above: Performed By: #### C BCDF #### [address] [address] Lymphocytes/100 WBC (Bld) 11.2 % Normal 13.0 - 44.0 [facility] Comment on above: Performed By: #### C BCDF #### [address] [address] MCHC (RBC) [Mass/Vol] 33.4 g/dL Normal 32.0 - 36.0 [facility] Comment on above: Performed By: #### C BCDF #### [address] [address] MCV (RBC) [Entitic vol] 94 fL Normal 80 - 100 [facility] Comment on above: Performed By: #### C BCDF #### [address] [address] Monocytes (Bld) [#/Vol] 0.70 10*3/uL Normal 0.10 - 1.00 [facility] Comment on above: Performed By: #### C BCDF #### [address] [address] Monocytes/100 WBC (Bld) 6.4 % Normal 2.0 - 10.0 [facility] Comment on above: Performed By: #### C BCDF #### [address] [address] Neutrophils (Bld) [#/Vol] 8.69 10*3/uL High 1.20 - 7.70 [facility] Comment on above: Performed By: #### C BCDF #### [address] [address] Neutrophils/100 WBC (Bld) 79.4 % Normal 40.0 - 80.0 [facility] Comment on above: Performed By: #### C BCDF #### [address] [address] Nucleated RBC/100 WBC (Bld) [Ratio] 0.0 /100 WBC Normal 0.0 - 0.0 [facility] Comment on above: Performed By: #### C BCDF #### [address] [address] Platelets (Bld) [#/Vol] 193 10*3/uL Normal 150 - 450 [facility] Comment on above: Performed By: #### C BCDF #### [address] [address] RBC (Bld) [#/Vol] 4.06 x10E12/L Normal 4.00 - 5.20 [facility] Comment on above: Performed By: #### C BCDF #### [address] [address] WBC (Bld) [#/Vol] 10.9 10*3/uL Normal 4.4 - 11.3 [facility] Comment on above: Performed By: #### C BCDF #### [address] [address] Complete Blood Count + Diffe rentialon 03-22-2020 Basophils (Bld) [#/Vol] 0.04 {x10E9/L} See Below PN-CRSZK-Fmw man 310 IVF Work Phone: Comment on above: Reference Range: 0.0 0 - 0.10 Basophils/100 WBC (Bld) 0.4 % 0.0 - 2.0 KT-VZPSK-Ogn jayesh [place] IV[facility] Work Phone: [phone] Eosinophils (Bld) [#/Vol] 0.14 {x10E9/L} See Below EK-BEJAD-Myq jayesh [place] IV[facility] Work Phone: [phone] Comment on above: Reference Range: 0.0 0 - 0.70 Eosinophils/100 WBC (Bld) 1.3 % 0.0 - 6.0 VB-HIOVH-Qgy jayesh [place] IV[facility] Work Phone: [phone] Erythrocyte distribution width (RBC) [Ratio] 13.3 % See Below LD-AYWHK-Sfc jayesh [place] IV[facility] Work Phone: [phone] Comment on above: Reference Range: 11. 5 - 14.5 Hematocrit (Bld) [Volume fraction] 38.3 % See Below IT-QSQUN-Fgl jayesh [place] IV[facility] Work Phone: [phone] Comment on above: Reference Range: 36. 0 - 46.0 Hemoglobin (Bld) [Mass/Vol] 12.8 g/dL See Below LM-ZGNCU-Uww jayesh [place] IV[facility] Work Phone: [phone] Comment on above: Reference Range: 12. 0 - 16.0 Lymphocytes (Bld) [#/Vol] 1.22 {x10E9/L} See Below FT-WMGUB-Hmg jayesh [place] IVF Work Phone: [phone] Comment on above: Reference Range: 1.2 0 - 4.80 Lymphocytes/100 WBC (Bld) 11.2 % See Below GW-XRUFJ-Biz jayesh [place] IVF Work Phone: [phone] Comment on above: Reference Range: 13. 0 - 44.0 MCHC (RBC) [Mass/Vol] 33.4 g/dL See Below TV-BKIVN-Qsj jayesh [place] IVF Work Phone: [phone] Comment on above: Reference Range: 32. 0 - 36.0 MCV (RBC) [Entitic vol] 94 fL 80 - 100 XF-IHXIU-Rso jayesh [facility] Work Phone: [phone] Monocytes (Bld) [#/Vol] 0.70 {x10E9/L} See Below HS-NPZYF-Evq man 310 IVF Work Phone: [phone] Comment on above: Reference Range: 0.1 0 - 1.00 Monocytes/100 WBC (Bld) 6.4 % 2.0 - 10.0 AI-MEVEA-Eqr jayesh 310 IVF Work Phone: [phone] Neutrophils/100 WBC (Bld) 79.4 % See Below AN-FZGYV-Rqc man 310 IVF Work Phone: [phone] Comment on above: Reference Range: 40. 0 - 80.0 Platelets (Bld) [#/Vol] 193 {x10E9/L} 150 - 450 FD-AMXQU-Onb jayesh [facility] Work Phone: [phone] RBC (Bld) [#/Vol] 4.06 {x10E12/L} See Below MG -OBGYN-Ris jayesh [facility] Work Phone: [phone] Comment on above: Reference Range: 4.0 0 - 5.20 WBC (Bld) [#/Vol] 10.9 {x10E9/L} 4.4 - 11.3 MG- OBGYN-Ris jayesh [facility] Work Phone: [phone] WBC (Bld) [#/Vol] 0.0 {/100_WBC} 0.0 - 0.0 MG- OBGYN-Ris jayesh [facility] Work Phone: [phone] Complete Blood Count + Differential 1.3 % above high threshold 0.0 - 0.9 AE-WMWMZ-Kbp jayesh [facility] Work Phone: [phone] Comment on above: Immature Granulocyte Count (IG) includes promyelocytes, myelocytes and metamyelocytes but does not include bands. Percent differential counts (%) should be interpreted in the context of the absolute cell counts (cells/L). Complete Blood Count + Differential 8.69 {x10E9/L} above high threshold See Below YI-IUEIW-Nkd man 310 IVF Work Phone: [phone] Comment on above: Reference Range: 1.2 0 - 7.70 GC + Chlamydia By Amplified Detectionon 03-22-2020 C. trachomatis rRNA WESLEY+probe Ql (Unsp spec) Negative Negative [facility] [address] [facility] Work Phone: N. gonorrhoeae rRNA WESLEY+probe Ql (Unsp spec) Negative Negative [facility] [address] M Work Phone: Comment on above: SOURCE: Urine HEPATIC FUNCTION PANELon Albumin [Mass/Vol] 3.0 g/dL Low 3.4 - 5.0 [facility] Comment on above: Performed By: #### H EPFP #### [address] [address] ALP [Catalytic activity/Vol] 62 U/L Normal 33 - 110 [facility] Comment on above: Performed By: #### H EPFP #### [address] [address] ALT [Catalytic activity/Vol] 17 U/L Normal 7 - 45 [facility] Comment on above: Result Comment: Aylin ents treated with Sulfasalazine may generate falsely decreased results for ALT. Performed By: #### H EPFP #### [address] [address] AST [Catalytic activity/Vol] 16 U/L Normal 9 - 39 [facility] Comment on above: Performed By: #### H EPFP #### [address] [address] Bilirubin [Mass/Vol] 0.3 mg/dL Normal 0.0 - 1.2 [facility] Comment on above: Performed By: #### H EPFP #### [address] [address] Bilirubin.direct [Mass/Vol] 0.0 mg/dL Normal 0.0 - 0.3 [facility] Comment on above: Performed By: #### H EPFP #### [address] [address] Protein [Mass/Vol] 5.5 g/dL Low 6.4 - 8.2 [facility] Comment on above: Performed By: #### H EPFP #### [facility] [address] [place] [address] Hepatic Function Panelon Albumin BCP dye [Mass/Vol] 3.0 g/dL below low threshold 3.4 - 5.0 WV-XWREU-Qgf man 310 IVF Work Phone: [phone] ALP [Catalytic activity/Vol] 62 U/L 33 - 110 KN-FUYIS-Dvu man 310 IVF Work Phone: [phone] ALT With P-5'-P [Catalytic activity/Vol] 17 U/L 7 - 45 UW-WYXDZ-Qfy man 310 IVF Work Phone: [phone] Comment on above: Patients treated wit h Sulfasalazine may generate falsely decreased results for ALT. AST With P-5'-P [Catalytic activity/Vol] 16 U/L 9 - 39 CR-PBQOQ-Cld man 310 IVF Work Phone: [phone] Bilirubin [Mass/Vol] 0.3 mg/dL 0.0 - 1.2 FH-WAMLM-Hqb man 310 IVF Work Phone: [phone] Bilirubin.direct [Mass/Vol] 0.0 mg/dL 0.0 - 0.3 AY-VXUEY-Lxn man 310 IVF Work Phone: [phone] Protein [Mass/Vol] 5.5 g/dL below low threshold 6.4 - 8.2 NL-KTMNQ-Ahn man 310 IVF Work Phone: [phone] Metabolic Panelon 03-22-2020 Anion gap [Moles/Vol] 13 mmol/L 10 - 20 DL-THDHG-Uhx man 310 IVF Work Phone: [phone] Calcium [Mass/Vol] 8.6 mg/dL 8.6 - 10.3 MG-OBG YN-Ris man 310 IVF Work Phone: [phone] Chloride [Moles/Vol] 105 mmol/L 98 - 107 OU-SZNIT-Shl man 310 IVF Work Phone: [phone] CO2 [Moles/Vol] 22 mmol/L 21 - 32 MG-OBGYN- Ris man 310 IVF Work Phone: [phone] Creatinine [Mass/Vol] 0.54 mg/dL See Below CB-IEVRP-Nii man 310 IVF Work Phone: Comment on above: Reference Range: 0.5 0 - 1.05 Glucose [Mass/Vol] 99 mg/dL 74 - 99 MG-OBG YN-Ris man 310 IVF Work Phone: Potassium [Moles/Vol] 4.0 mmol/L 3.5 - 5.3 ZU-BBXBZ-Qng man 310 IVF Work Phone: Sodium [Moles/Vol] 136 mmol/L 136 - 145 MG-OBG YN-Ris man 310 IVF Work Phone: Urea nitrogen [Mass/Vol] 10 mg/dL 6 - 23 ZL-WWFWC-Jlb man 310 IVF Work Phone: Otheron 03-22-2020 [...] Poor viewElectronically signed by: May,03/22/20 16:35 Normal ZB-TKCEF-Ozb man 310 IVF Work Phone: Comment on above: ORDER REVISED TO A O B BIOPHYSICAL PROFILE (W/O NST) BY RADIOLOGIST; Original Order Number: [id number] ORDER REVISED TO A O B FOLLOW UP OR REPEAT SCAN BY RADIOLOGIST; Original Order Number: [id number] >60 >60 RV-LTZEO-Xwa man 310 IVF Work Phone: Comment on above: CALCULATIONS OF RACQUEL MATED GFR ARE PERFORMED USING THE MDRD STUDY EQUATION FOR THE IDMS-TRACEABLE CREATININE METHODS. CLIN CHEM 2007;53:766-72 TOTAL PROTEIN, URINE SPOTon 03-22-2020 CREATININE,URINE Canceled Normal [facility] Comment on above: Order Comment: TEST TOTAL PROTEIN, URINE SPOT WAS CANCELLED, 03/22/2020 14:58 PT. CAME TO [facility] FROM [facility] PHLEBS UNABLE TO CONTAIN BLOOD, URINE SAMPLE WAS TAKEN AT OFFICE. Performed By: #### T PS2 #### [address] [place] [address] T. PROTEIN/CREAT RATIO Canceled Normal [facility] Comment on above: Order Comment: TEST TOTAL PROTEIN, URINE SPOT WAS CANCELLED, 03/22/2020 14:58 PT. CAME TO [facility] FROM OFFICE PH[facility] UNABLE TO CONTAIN BLOOD, URINE SAMPLE WAS TAKEN AT OFFICE. Performed By: #### T PS2 #### [address] [place] [id number] TOTAL PROT,URINE SPOT Canceled Normal [facility] Comment on above: Order Comment: TEST TOTAL PROTEIN, URINE SPOT WAS CANCELLED, 03/22/2020 14:58 PT. CAME TO [facility] FROM OFFICE PHLEBS UNABLE TO CONTAIN BLOOD, URINE SAMPLE WAS TAKEN AT OFFICE. Performed By: #### T PS2 #### [address] [place] [address] URIC ACIDon 03-22-2020 Urate [Mass/Vol] 4.9 mg/dL Normal 2.3 - 6.7 [facility] Comment on above: Result Comment: Tasha puncture immediately after or during the administration of Metamizole may lead to falsely low results. Testing should be performed immediately prior to Metamizole dosing. Performed By: #### U TORRES #### [address] [place] [address] Uric Acid, Serumon 0 Urate [Mass/Vol] 4.9 mg/dL 2.3 - 6.7 MG-OBGYN -Ris jayesh 310 IVF Work Phone: Comment on above: Venipuncture immedia tely after or during the administration of Metamizole may lead to falsely low results. Testing should be performed immediately prior to Metamizole dosing. Cult, Urineon 03-10-2020 Bacteria identified Cx Nom (U) PATIENT: WILD CALVO LOCATION: [facility] BILL#: [id number] : 76 AGE: SEX: F ORDERED BY: RUBY CHOU: URINE COLLECTED: 03/10/20 16:47ANTIBIOTICS AT NEISHA.: RECEIVED : 03/11/20 00:30SITE: Unspecified R E S U L T S URINE CULTURE,BACTERIAL FINAL 03/12/20 08:13 NO SIGNIFICANT GROWTH. FP-TNXHC-Qru man 310 IVF Work Phone: HCG,BETA-QUANTITATIVEon 07-0 [place] [address] mIU/mL [facility] Comment on above: Result Comment: Low- level [...] HCG measurement is performed using the [employer] [place] Access Immunoassay which detects intact HCG and free beta HCG subunit. This test is not indicated for use as a tumor marker. HCG testing is performed using a different test methodology at [facility] than other [facility]. Direct result comparison should only be made within the same method. REF VALUES NON FEMALE <5 MALES <5 Performed By: #### H CGQU #### [facility] [address] [place] [address] HCG,BETA-QUANTITATIVEon 06-2 HCG,BETA-QUANTITATI VE 390 mIU/mL [facility] [place] Comment on above: Result Comment: Low- level [...] HCG measurement is performed using the [employer] [place] Access Immunoassay which detects intact HCG and free beta HCG subunit. This test is not indicated for use as a tumor marker. HCG testing is performed using a different test methodology at [facility] than other [facility]. Direct result comparison should only be made within the same method. REF VALUES NON FEMALE <5 MALES <5 Performed By: #### H CGQU #### [facility] [address] [place] [address] PROGESTERONEon 09-08-2019 PROGESTERONE 22.8 ng/mL Normal [facility] Comment on above: Result Comment: Prog esterone is performed using the [place] [place] Access Immunoassay. Progesterone testing is performed using a different test methodology at [facility] than other [facility]. Direct result comparison should only be made within the same method. REF VALUES MALE <0.2-0.8 FOLLICULAR PHASE <0.2-1.5 LUTEAL PHASE 7.4-15.4 POSTMENOPAUSAL <0.2-0.2 1ST TRIMESTER 12.0-84.0 2ND TRIMESTER 10.2-58.8 3RD TRIMESTER 46.5-160 Performed By: #### P LILO #### [facility] [address] [place] [address] ESTRADIOLon 09-02-2019 ESTRADIOL 294 pg/mL Normal [facility] Comment on above: Result Comment: Estr adiol measurement is performed using the [place] [place] Access Immunoassay. Estradiol testing is performed using a different test methodology at [facility] than other [facility]. Direct result comparison should only be made within the same method. REF VALUES FOLLICULAR PHASE 20-144 MID CYCLE 64-357 LUTEAL PHASE 56-214 POSTMENOPAUSE < 32 PREPUBERTY < 20 FEMALE 10-18Y 8-110 MALE 10-18Y < 20 ADULT MALE < 40 Performed By: #### E STRA #### [facility] [address] [place] [address] PROGESTERONEon 09-02-2019 PROGESTERONE 0.4 ng/mL Normal [facility] Comment on above: Result Comment: Prog esterone is performed using the [place] [place] Access Immunoassay. Progesterone testing is performed using a different test methodology at [facility] than other [facility]. Direct result comparison should only be made within the same method. REF VALUES MALE <0.2-0.8 FOLLICULAR PHASE <0.2-1.5 LUTEAL PHASE 7.4-15.4 POSTMENOPAUSAL <0.2-0.2 1ST TRIMESTER 12.0-84.0 2ND TRIMESTER 10.2-58.8 3RD TRIMESTER 46.5-160 Performed By: #### P LILO #### [facility] [address] [place] [address] Progesterone, Serumon 2019 Progesterone [Mass/Vol] ng/mL HN-WZTLR-Dfp man 310 IVF Work Phone: Comment on above: Note new reference r ravinder as of 06/01/2019.REF VALUESMALE <0.3- 1.2 FOLLICULAR PHASE <0.3- 1.4 LUTEAL PHASE 3.3-25.6 MID-LUTEAL PHASE 4.4-28.0POSTMENOPAUSAL <0.3- 0.7 FEMALES: 1ST TRIMESTER 11.2- 90.0 2ND TRIMESTER 25.6- 89.4 3RD TRIMESTER 48.4-422.5 .Patients receiving DHEA-S supplements may show false elevation ofprogesterone for results near 1.0 ng/mL. Contact laboratory [phone] if alternative testing is needed. FLUOROSCOPY, UP TO 1 HRon FLUOROSCOPY, UP TO 1 HR Patient Name: WILD CALVO STUDY: FLUOROSCOPY, UP TO 1 HR;; 06/11/2019 2:34 pm INDICATION: LEFT CALCANEAL SPUR RESECTION. COMPARISON: None. ACCESSION NUMBER(S): [id number] ORDERING CLINICIAN: CHRISTOPHER HARRIS TECHNIQUE: 2 C-arm views FINDINGS: The initial C-arm view demonstrates a calcaneal posterior enthesophyte, and globular calcification superior to this at the Achilles tendon. There has been resection of these entities on the 2nd image submitted, with 2 anchors at the os calcaneus posteriorly. IMPRESSION: Postsurgical changes as described. Electronically signed by: PORFIRIO ANDRADE MD [facility] History and Physical - Surgi donnie Update [...] the note. I personally evaluated the patient [id number] Attending Provider Inpatient Certification StatementI certify this [...] Profile - Preop v2 10-Jun-2019 13:58 Normal [facility] Operative Reports - [place] 06-[place]-2019 Operative Reports - [address] HEAD REFRIGERATION ENGINEER: Cruz Robles DPM, PGY-3 PREOPERATIVE DIAGNOSES: 1. [...] anchored back onto the calcaneus using the fence laborer's recommended technique for the above said [place] anchors. Achilles was noted to be taut. [...] plasma, which was spun down using the fence laborer's recommended technique. The patient was then placed [...] Christopher Harris DPM EST EST DICTATION NUMBER: [id number] INTERNAL JOB NUMBER: [id number] Electronic Signatures: Christopher Harris) (Signed on 06-Jul-2019 23:08) Authored Unsigned, Draft (SYS GENERATED) (Entered on 25-Jun-2019 13:30) Entered Unsigned, Draft (SYS GENERATED) (Entered on 24-Jun-2019 11:37) Entered Last Updated: 06-Jul-2019 23:08 by Christopher Harris (CARLOS) [facility] Histologyon 06-11-2019 [place] [facility] Name ANTONIETTA CALVO Pathologist: DILLON PAZ MD Date of Procedure: [...] measuring 2.5 x 1.5 x 1.5 cm. Church Administrator sections are submitted in one cassette following decalcification. RL rlm/06/11/2019 Normal [facility] Comment on above: Performed By: #### P #### [facility] [address] [facility] [address] Preop Checkliston 06-11-2019 Preop Checklist Preop Checklist: Preop Checklist: Arrival [id number] Arrival Time10:13 Procedure TypeLEFT ACHILLES TENDON REPAIR Temperature C36.9 degrees C Temperature F98.4 degrees F Heart Rate72 beats per minute Respiratory Rate20 breath per minute Blood Pressure Mumsgyny704 mm/Hg Blood Pressure Canyuyddh36 mm/Hg ID Band Onyes Allergy Bandno known [...] Updated: 11-Jun-2019 10:16 by Scarlet Stein) Normal [facility] CBC AND DIFFERENTIALon 06-06 % AUTOMATED IMMATURE GRAN 0.3 % Normal 0.0 - 0.9 [facility] Comment on above: Result Comment: Irma ture Granulocyte Count (IG) includes promyelocytes, myelocytes and metamyelocytes but does not include bands. Percent differential counts (%) should be interpreted in the context of the absolute cell counts (cells/L). Performed By: #### C BCDF #### [address] [address] Basophils (Bld) [#/Vol] 0.06 10*3/uL Normal 0.00 - 0.10 [facility] Comment on above: Performed By: #### C BCDF #### [address] [address] Basophils/100 WBC (Bld) 0.8 % Normal 0.0 - 2.0 [facility] Comment on above: Performed By: #### C BCDF #### [address] [address] Eosinophils (Bld) [#/Vol] 0.22 10*3/uL Normal 0.00 - 0.70 [facility] Comment on above: Performed By: #### C BCDF #### [address] [address] Eosinophils/100 WBC (Bld) 2.9 % Normal 0.0 - 6.0 [facility] Comment on above: Performed By: #### C BCDF #### [address] [address] Erythrocyte distribution width (RBC) [Ratio] 12.3 % Normal 11.5 - 14.5 [facility] Comment on above: Performed By: #### C BCDF #### [address] [address] Hematocrit (Bld) [Volume fraction] 42.6 % Normal 36.0 - 46.0 [facility] Comment on above: Performed By: #### C BCDF #### [address] [address] Hemoglobin (Bld) [Mass/Vol] 13.9 g/dL Normal 12.0 - 16.0 [facility] Comment on above: Performed By: #### C BCDF #### [address] [address] Lymphocytes (Bld) [#/Vol] 1.79 10*3/uL Normal 1.20 - 4.80 [facility] Comment on above: Performed By: #### C BCDF #### [address] [address] Lymphocytes/100 WBC (Bld) 23.8 % Normal 13.0 - 44.0 [facility] Comment on above: Performed By: #### C BCDF #### [address] [address] MCHC (RBC) [Mass/Vol] 32.6 g/dL Normal 32.0 - 36.0 [facility] Comment on above: Performed By: #### C BCDF #### [address] [address] MCV (RBC) [Entitic vol] 95 fL Normal 80 - 100 [facility] Comment on above: Performed By: #### C BCDF #### [address] [address] Monocytes (Bld) [#/Vol] 0.41 10*3/uL Normal 0.10 - 1.00 [facility] Comment on above: Performed By: #### C BCDF #### [address] [address] Monocytes/100 WBC (Bld) 5.5 % Normal 2.0 - 10.0 [facility] Comment on above: Performed By: #### C BCDF #### [address] [address] Neutrophils (Bld) [#/Vol] 5.02 10*3/uL Normal 1.20 - 7.70 [facility] Comment on above: Performed By: #### C BCDF #### [address] [address] Neutrophils/100 WBC (Bld) 66.7 % Normal 40.0 - 80.0 [facility] Comment on above: Performed By: #### C BCDF #### [address] [address] Nucleated RBC/100 WBC (Bld) [Ratio] 0.0 /100 WBC Normal 0.0 - 0.0 [facility] Comment on above: Performed By: #### C BCDF #### [address] [address] Platelets (Bld) [#/Vol] 271 10*3/uL Normal 150 - 450 [facility] Comment on above: Performed By: #### C BCDF #### [address] [address] RBC (Bld) [#/Vol] 4.50 x10E12/L Normal 4.00 - 5.20 [facility] Comment on above: Performed By: #### C BCDF #### [address] [address] WBC (Bld) [#/Vol] 7.5 10*3/uL Normal 4.4 - 11.3 [facility] Comment on above: Performed By: #### C BCDF #### [address] [address] COMPREHENSIVE PANELon 2019 Albumin [Mass/Vol] 4.1 g/dL Normal 3.4 - 5.0 [facility] Comment on above: Performed By: #### C MP #### [address] [address] ALP [Catalytic activity/Vol] 45 U/L Normal 33 - 110 [facility] Comment on above: Performed By: #### C MP #### [address] [address] ALT [Catalytic activity/Vol] 31 U/L Normal 7 - 45 [facility] Comment on above: Result Comment: Aylin ents treated with Sulfasalazine may generate falsely decreased results for ALT. Performed By: #### C MP #### [address] [address] Anion gap [Moles/Vol] 11 mmol/L Normal 10 - 20 [facility] Comment on above: Performed By: #### C MP #### [address] [address] AST [Catalytic activity/Vol] 23 U/L Normal 9 - 39 [facility] Comment on above: Performed By: #### C MP #### [facility] [address] [place] [address] Bilirubin [Mass/Vol] 0.3 mg/dL Normal 0.0 - 1.2 [facility] Comment on above: Performed By: #### C MP #### [facility] [address] [place] [address], [place] [address] Calcium [Mass/Vol] 9.1 mg/dL Normal 8.6 - 10.3 [facility] Comment on above: Performed By: #### C MP #### [address] [place] [address] Chloride [Moles/Vol] 104 mmol/L Normal 98 - 107 [facility] Comment on above: Performed By: #### C MP #### [address] [place] [address] Creatinine [Mass/Vol] 0.76 mg/dL Normal 0.50 - 1.05 [facility] Comment on above: Performed By: #### C MP #### [address] [place] [address] GFR- AM. >60 Normal >60 [facility] Comment on above: Result Comment: CALC ULATIONS OF ESTIMATED GFR ARE PERFORMED USING THE MDRD STUDY EQUATION FOR THE IDMS-TRACEABLE CREATININE METHODS. CLIN CHEM 2007;53:766-72 Performed By: #### C MP #### [address] [place] [address] GFR-NON AM. >60 Normal >60 [facility] Comment on above: Performed By: #### C MP #### [address] [place] [address] Glucose [Mass/Vol] 101 mg/dL High 74 - 99 [facility] Comment on above: Performed By: #### C MP #### [facility] [address] [place] [address], [place] [address] HCO3 (Bld) [Moles/Vol] 28 mmol/L Normal 21 - 32 [facility] Comment on above: Performed By: #### C MP #### [address] [place] [address] Potassium [Moles/Vol] 4.0 mmol/L Normal 3.5 - 5.3 [facility] Comment on above: Performed By: #### C MP #### [facility] [address] [place] [address] Protein [Mass/Vol] 6.3 g/dL Low 6.4 - 8.2 [facility] Comment on above: Performed By: #### C MP #### [facility] [address] [place] [address] Sodium [Moles/Vol] 139 mmol/L Normal 136 - 145 [facility] Comment on above: Performed By: #### C MP #### [facility] [address] [place] [address] Urea nitrogen [Mass/Vol] 16 mg/dL Normal 6 - 23 [facility] Comment on above: Performed By: #### C MP #### [address] [address] Progesterone, Serumon 2019 Progesterone [Mass/Vol] 9.5 ng/mL EF-JWYMS-Wfp man 310 IVF Work Phone: Comment on above: Patients receiving D HEA-S supplements may show false elevation ofprogesterone for results near 1.0 ng/mL. Contact laboratory [phone] if alternative testing is needed.REF VALUESMALE <0.2-0.8 FOLLICULAR PHASE <0.2-1.5 LUTEAL PHASE 7.4-15.4 POSTMENOPAUSAL <0.2-0.2 1ST TRIMESTER 12.0-84.0 2ND TRIMESTER 10.2-58.8 3RD TRIMESTER 46.5-160 Progesterone, Serumon 2019 Progesterone [Mass/Vol] 0.2 ng/mL RV-YXIQT-Nlu man 310 IVF Work Phone: Comment on above: Patients receiving D HEA-S supplements may show false elevation ofprogesterone for results near 1.0 ng/mL. Contact laboratory [phone] if alternative testing is needed.REF VALUESMALE <0.2-0.8 FOLLICULAR PHASE <0.2-1.5 LUTEAL PHASE 7.4-15.4 POSTMENOPAUSAL <0.2-0.2 1ST TRIMESTER 12.0-84.0 2ND TRIMESTER 10.2-58.8 3RD TRIMESTER 46.5-160 CBC AND DIFFERENTIALon 12-16 -2019 % AUTOMATED IMMATURE GRAN 1.8 % High 0.0 - 0.[address] [facility] Comment on above: Result Comment: Perc ent differential counts (%) should be interpreted in the context of the absolute cell counts (cells/L). Performed By: #### C BCDF #### [facility] [address] [place] [id number] Basophils (Bld) [#/Vol] 0.11 10*3/uL High 0.00 - 0.[address] [facility] Comment on above: Performed By: #### C BCDF #### [facility] [address] [place] [id number] Basophils/100 WBC (Bld) 0.9 % Normal 0.0 - 2.[address] [facility] Comment on above: Performed By: #### C BCDF #### [facility] [address] [place] [id number] Eosinophils (Bld) [#/Vol] 0.10 10*3/uL Normal 0.00 - 0.[address] [facility] Comment on above: Performed By: #### C BCDF #### [facility] [address] [place] [id number] Eosinophils/100 WBC (Bld) 0.8 % Normal 0.0 - 6.[address] [facility] Comment on above: Performed By: #### C BCDF #### [facility] [address] [place] [id number] Erythrocyte distribution width (RBC) [Ratio] 13.2 % Normal 11.5 - 14.[address] [facility] Comment on above: Performed By: #### C BCDF #### [facility] [address] [place] [id number] Hematocrit (Bld) [Volume fraction] 45.4 % Normal 36.0 - 46.[address] [facility] Comment on above: Performed By: #### C BCDF #### [facility] [address] [place] [id number] Hemoglobin (Bld) [Mass/Vol] 14.9 g/dL Normal 12.0 - 16.[address] [facility] Comment on above: Performed By: #### C BCDF #### [facility] [address] [place] [address] Lymphocytes (Bld) [#/Vol] 2.48 10*3/uL Normal 1.20 - 4.[address] [facility] Comment on above: Performed By: #### C BCDF #### [facility] [address] [place] [address] Lymphocytes/100 WBC (Bld) 20.8 % Normal 13.0 - 44.[address] [facility] Comment on above: Performed By: #### C BCDF #### [facility] [address] [place] [address] MCHC (RBC) [Mass/Vol] 32.8 g/dL Normal 32.0 - 36.[address] [facility] Comment on above: Performed By: #### C BCDF #### [facility] [address] [place] [address] MCV (RBC) [Entitic vol] 94 fL Normal 80 - [address] [facility] Comment on above: Performed By: #### C BCDF #### [facility] [address] [place] [address] Monocytes (Bld) [#/Vol] 0.59 10*3/uL Normal 0.10 - 1.[address] [facility] Comment on above: Performed By: #### C BCDF #### [facility] [address] [place] [address] Monocytes/100 WBC (Bld) 4.9 % Normal 2.0 - 10.[address] [facility] Comment on above: Performed By: #### C BCDF #### [facility] [address] [place] [address] Neutrophils (Bld) [#/Vol] 8.43 10*3/uL High 1.20 - 7.[address] [facility] [place] Comment on above: Performed By: #### C BCDF #### [facility] [address] [place] [address] Neutrophils/100 WBC (Bld) 70.8 % Normal 40.0 - 80.[address] [facility] [place] Comment on above: Performed By: #### C BCDF #### [facility] [address] [place] [address] Platelets (Bld) [#/Vol] 216 10*3/uL Normal 150 - [address] [facility] [place] Comment on above: Performed By: #### C BCDF #### [facility] [address] [place] [address] RBC (Bld) [#/Vol] 4.84 x10E12/L Normal 4.00 - 5.[address] [facility] [place] Comment on above: Performed By: #### C BCDF #### [facility] [address] [place] [address] WBC (Bld) [#/Vol] 11.9 10*3/uL High 4.4 - 11.3 [facility] Comment on above: Performed By: #### C BCDF #### [facility] [address] [place] [address] HCG,BETA-QUANTITATIVEon 02-28 HCG,BETA-QUANTITATI VE <[address] [facility] [place] Comment on above: Result Comment: Low- level [...] performed using a different test methodology at [facility] than other [facility]. Direct result comparison should only be made within the same method. REF VALUES NON FEMALE <5 MALES <5 Performed By: #### H CGQU #### [facility] [address] [place] [address] PROGESTERONEon 03-02-2019 PROGESTERONE 19.0 ng/mL Normal [facility] Comment on above: Result Comment: Prog esterone is performed using the Nhan Malcolm Access Immunoassay. Progesterone testing is performed using a different test methodology at [facility] than other [facility]. Direct result comparison should only be made within the same method. REF VALUES MALE <0.2-0.8 FOLLICULAR PHASE <0.2-1.5 LUTEAL PHASE 7.4-15.4 POSTMENOPAUSAL <0.2-0.2 1ST TRIMESTER 12.0-84.0 2ND TRIMESTER 10.2-58.8 3RD TRIMESTER 46.5-160 Performed By: #### P LILO #### [facility] [address] [place] [address] HCG,BETA-QUANTITATIVEon HCG,BETA-QUANTITATI VE 30 mIU/mL [facility] [place] Comment on above: Result Comment: Low- level [...] performed using a different test methodology at [facility] than other [facility]. Direct result comparison should only be made within the same method. REF VALUES NON FEMALE <5 MALES <5 Performed By: #### H CGQU #### [facility] [address] [place] [address] PROGESTERONEon 01-21-2019 PROGESTERONE 17.6 ng/mL Normal [facility] Comment on above: Result Comment: Prog esterone is performed using the Nhan Malcolm Access Immunoassay. Progesterone testing is performed using a different test methodology at [facility] than other [facility]. Direct result comparison should only be made within the same method. REF VALUES MALE <0.2-0.8 FOLLICULAR PHASE <0.2-1.5 LUTEAL PHASE 7.4-15.4 POSTMENOPAUSAL <0.2-0.2 1ST TRIMESTER 12.0-84.0 2ND TRIMESTER 10.2-58.8 3RD TRIMESTER 46.5-160 Performed By: #### P [facility] #### [facility] [address] [place] [address] Imm/Pathon 07-29-2018 Cytology report Cyto stain.thin prep Doc (Cvx/Vag) [facility] [address] Work Phone: Otheron 07-29-2018 05 Date of Procedure: 07/29/2018 Pathologist: [facility], CytologyDate Reported: 08/05/2018Date Received: 07/29/2018Submitting Physician: JAMSHID [...] was verified by the [facility] at [facility]. The lab iscertified under the Clinical Laboratory Amendments of 1988 (CLIA 88) asqualified to perform high complexity clinical laboratory testing.This specimen has been analyzed by the Pileus SoftwarePrep Imaging System ([employer]an automated imaging and review system, which assists the laboratory inevaluating cells on ThinPrep Pap tests. Following automated imaging, selectedfields from every slide were reviewed by a data architect and/or pathologist.Electronically Signed Out By [facility], Cytology//JDH By the signature on this report, [...] SpecimenA: THINPREP PAP CERVICAL MP-Reproduct claudy Endocrinolog y-[address] Work Phone: Mamm - Screening Mammogram w / Tomosynthesison 07-28-2018 MG Breast screening Interpreted by: OSBALDO LEROY08/04/18 15:48MRN: [id number] Name: WILD CALVO STUDY:DIGITAL MAMM SCREENING W/ FERNIE; 07/28/2018 1:40 [...] any future breast imaging appointments, please call [phone]). Patient letter sent SOFNOR I personally reviewed the images/study and I agree with the findingsas stated. This study was interpreted at [facility], [place], [place].Electronically signed by: TRISHMANMONSTER 08/04/18 15:48 Normal MP-Reproduct claudy Endocrinolog y-Mary 206 Work Phone: Comment on above: ORDER REVISED TO A D IGITAL MAMM SCREENING W/ FERNIE BY RADIOLOGIST Otheron 07-28-2018 Please click on the link to view the study images Normal MP-Reproduct claudy Endocrinolog y-Mary 206 Work Phone: ABDOMEN OR KUBon 02-27-2018 ABDOMEN OR KUB STUDY:ABDOMEN OR KUB ; 02/27/2018 4:57 pmINDICATION:STONES.COMPARI SON:KUB 08/20/2017ACCESSION NUMBER(S):[id number] ERING CLINICIAN:Og CullenFINDINGS:Right upper quadrant clips. No definite renal pelvic calculi.Nonobstructive bowel gas pattern. Moderate colonic stool burden. Nofindings of organomegaly.IMPRESSION:No definite renal calculi. [facility] ABDOMEN OR KUBon 07-31-2017 ABDOMEN OR KUB STUDY:ABDOMEN OR KUB ; 07/31/2017 4:40 pmINDICATION:HX OF STONES.COMPARISON:No available comparisonsACCESSION NUMBER(S):[id number] ERING CLINICIAN:Og ForresterIQUE:Two views of the abdomenFINDINGS:5 [...] location in comparison withthe prior exam. [facility] OPERATIVE REPORTon OPERATIVE REPORT Name: YOGI CALVO MMR: [id number]: Og Cullen M.D.DATE OF SURGERY: 07/31/2017ANESTHESIA: General.1ST HEAD REFRIGERATION ENGINEER:PREOP DIAGNOSIS: Left ureteral calculus.POSTOP DIAGNOSIS: Left ureteral [...] a KUB film. Og CULLEN M.D.[facility]/MedQ/[id number]: 08/01/2017 14:03:15 cc: Og Cullen M.D. [facility] WILD CALVO [id number] [place] [id number]: Og Cullen,OPERATIVE REPORTFax: [phone]/S: Og Cullen, 08/06/17 1218Electronically Signed __[facility] WILD CALVO [id number] [place] [address] [id number]: Og Cullen,OPERATIVE REPORT [facility] ABDOMEN OR KUBon 07-30-2017 ABDOMEN OR KUB STUDY:ABDOMEN OR KUB ; 07/30/2017 2:09 pmINDICATION:KIDNEY STONES.COMPARISON:None.ACCE SSION NUMBER(S):[id number] ERING CLINICIAN:Og CullenFINDINGS:Nonobstructiv e bowel gas pattern.The [...] ureteral calculus at the L3 level. [facility] CULTURE URINE W CCon 018 CULTURE URINE W CC URINE CULTURE URINE CONTAMINATED WITH NORMAL SKIN LASHELL NO URINARY PATHOGENS ISOLATED SUGGEST REPEAT IF CLINICALLY INDICATED [facility] Comment on above: Performed By: #### M URINE ####[place] [address] History and Physical Estefany 0 07-30-2017 History and Physical PAT [facility] Pt Name: WILD CALVO [id number] [facility] MR # [id number] [place] [address] : [birth year]* * * * * * * * History and Physical PAT * * * * * * * *History of Present IllnessDate of Kmnwtzs48/02/18ource of InformationPatientChief Complaint/Present IllnesKidney stoneHPIPatient woke up [...] as Reported by NIMESH ADAME on 07/30/17 133Last Action: Reviewed on 07/30/171334 by NIMESH ADAME DHYDROcodone Bit 5mg AND Acetaminophen 300mg *(VICODIN 5mg-300mg *) 1 EACH TABLET 1 EACH PO Q4PRN PRN PAIN #15, Ref 0(Reported)Entered as Reported by NIMESH ADAME on 07/30/17 133Last Action: Reviewed on 07/30/171334 by NIMESH ADAME [...] 0(Reported)Entered as Reported by NIMESH ADAME on 07/30/173Last Action: Reviewed on 07/30/171334 by NIMESH ADAME [...] pain or shortness of breathPhysical ExamVital SignsTemp (C)36.3Hqrhs38Ubvgsxgvqbfg0 6Blood Lqoczwmk865/79Pulse-Ox%99He ight - Vdkk2Axaurm9Vtimkg - Jw233TrjddesauwDrktzoj AppearanceWell Developed/Nourished, Alert, Oriented X 3, Cooperative. [...] Date Esig Nay Sunshine 07/30/17 1352 [facility] OPERATIVE REPORTon 8 OPERATIVE REPORT Name: YOGI CALVO MMR: [id number]: Og Cullen M.D.DATE OF SURGERY: 07/30/2017ANESTHESIA:1ST HEAD REFRIGERATION ENGINEER:PREOP DIAGNOSIS: Left proximal ureteral calculus.POSTOP DIAGNOSIS: Left [...] a functional machine. Og CULLEN M.D.[facility]/[id number]: 07/30/2017 17:48:32 cc: Og Cullen M.D.Fax: [phone] [facility] WILD CALVO [id number] [place] [address] [id number]: Og Cullen,OPERATIVE REPORTE/S: Og Cullen, 08/06/17 1218Electronically Signed __[facility] WILD CALVO [id number] [place] [address] [id number]: Og Cullen,OPERATIVE REPORT [facility] PREG URINE QUALon 07-30-2017 UR HCG QUAL Negative [facility] Comment on above: Order Comment: Speci men Comment: PT IS GOING TO OPS TODAYCampus: MAIN Performed By: #### L UPREG ####[facility] [address] [place] [address] BASIC METABOLIC PANELon -3 Anion gap 3 molar conc 9 mmol/L Normal 6-18 [facility] Comment on above: Order Comment: Is pa tient fasting? NO Performed By: #### L BMP, LGFRP ####[facility] [address] [place] [address] Calcium mass conc 9.1 mg/dL Normal 8.6-10.3 [facility] Comment on above: Order Comment: Is pa tient fasting? NO Performed By: #### L BMP, LGFRP ####[facility] [address]ks[address] [place] [address] Chloride molar conc 103 mmol/L Normal 98-107 [facility] Comment on above: Order Comment: Is pa tient fasting? NO Performed By: #### L BMP, LGFRP ####[facility] Z[address]jxcu[address] [place] [address] CO2 molar conc 29 mmol/L Normal 21-32 [facility] Comment on above: Order Comment: Is pa tient fasting? NO Performed By: #### L BMP, LGFRP ####[facility] W[address]adebri[address] [place] [address] Creatinine mass conc 1.18 mg/dL High 0.5-1.05 [facility] Comment on above: Order Comment: Is pa tient fasting? NO Performed By: #### L BMP, LGFRP ####[facility] L[address] [place] [address] Glucose mass conc 87 mg/dL Normal 74-99 [facility] Comment on above: Order Comment: Is pa tient fasting? NO Performed By: #### L BMP, LGFRP ####[facility] L[address]wft[address] [place] [address] Potassium molar conc 4.1 mmol/L Normal 3.5-5.3 [facility] Comment on above: Order Comment: Is pa tient fasting? NO Performed By: #### L BMP, LGFRP ####[facility] [address]es[address] [place], [place] [id number] Sodium molar conc 137 mmol/L Normal 136-145 [facility] Comment on above: Order Comment: Is pa tient fasting? NO Performed By: #### L BMP, LGFRP ####[facility] [address] [place], [place] [id number] Urea nitrogen mass conc 22 mg/dL Normal 6-23 [facility] Comment on above: Order Comment: Is pa tient fasting? NO Performed By: #### L BMP, LGFRP ####[facility] [id number] [place], [place] [id number] CBC AUTOon 07-28-2017 Erythrocyte distribution width Auto Ratio (RBC) 12.6 % Normal 11.5-14.5 [facility] Comment on above: Performed By: #### L CBC ####[facility] [address] [place], [place] [id number] Hematocrit Auto Volume Fraction (Bld) 37.0 % Normal 36.0-48.0 [facility] Comment on above: Performed By: #### L CBC ####[facility] Gynllcalmf[address] [place], [place] [address] Hemoglobin mass conc (Bld) 11.9 g/dL Low 12.0-15.0 [facility] Comment on above: Performed By: #### L CBC ####[facility] Qymvauffil[address] [place], [place] [address] MCH Auto Entitic mass (RBC) 31.6 pg Normal 25.4-34.6 [facility] Comment on above: Performed By: #### L CBC ####[facility] Q[address] [place] [address] MCHC Auto mass conc (RBC) 32.2 g/dL Normal 30.0-36.0 [facility] Comment on above: Performed By: #### L CBC ####[facility] Rimvbetyib[address] [place] [address] 16469 MCV Auto Entitic volume (RBC) 98.4 fL High 79.0-98.0 [facility] Comment on above: Performed By: #### L CBC ####[facility] [address]nor[address] [place] [address] Platelet mean volume Auto Entitic volume (Bld) 10.8 fL Normal 8.4-11.9 [facility] Comment on above: Performed By: #### L CBC ####[place] [id number] Platelets Auto #/vol (Bld) 262 10*3/uL Normal 140-440 [facility] Comment on above: Performed By: #### L CBC ####[facility] [address]osds[address] [place] [address] 16915 RBC Auto #/vol (Bld) 3.76 10*6/uL Normal 3.5-5.5 [facility] Comment on above: Performed By: #### L CBC ####[facility] [address] [place] [address] 12561 WBC Auto #/vol (Bld) 8.6 10*3/uL Normal 3.9-11.0 [facility] Comment on above: Performed By: #### L CBC ####[facility] Y[address]rac[address] [place] [address] 77359 GLOMERULAR FILTRATION RATE E STon 07-28-2017 GFR/1.73 sq M predicted among non-blacks MDRD vol rate/area (S/P/Bld) 58 mL/min/{1.73_m2} Low > 60 [facility] Comment on above: Order Comment: Is pa tient fasting? NO Performed By: #### L BMP, LGFRP ####[facility] [address]qx[address]pe[address] [place] [address] 47908 IF AMER 67 mL/MIN Normal > 60 [facility] Comment on above: Order Comment: Is pa tient fasting? NO Result Comment: Effe ctive 08/24/14:CKD-EPI equation / based on IDMS traceable creatinine.Continue to use the CREAT CLR-DOSE (Cockgroft-Gault)value for determining medication dose. Performed By: #### L BMP, LGFRP ####[facility] Rywsexytdq77021 [place] [id number] PROTIMEon 07-28-2017 INR Coag RelTime (PPP) 1.07 {INR} Normal 0.9-1.1 [facility] Comment on above: Order Comment: List patient's anticoagulant: NONE SPECIFIED Result Comment: * NO TE: INR therapeutic range of 2.0 - 3.0 is recommended for prophylaxis to prevent embolism, venous thrombosis, pulmonary embolism, and myocardial infarction. INR therapeutic range of 2.5 - 3.5 is recommended for patients with mechanical heart valves. * Performed By: #### L PT, LPTT ####[facility] [address] [place], [place] [phone] PT SEC 11.8 seconds Normal 9.8-12.7 [facility] Comment on above: Order Comment: List patient's anticoagulant: NONE SPECIFIED Performed By: #### L PT, LPTT ####[facility] [address]iaon[address] [place] [address] 00300 PTTon 07-28-2017 aPTT Coag time (Bld) 34.1 s Normal 25.0-36.0 [facility] Comment on above: Order Comment: List patient's anticoagulant: NONE SPECIFIED Result Comment: The APTT is no longer used for monitoring unfractionatedheparin therapy. For monitoring heparin therapy, use theHeparin Assay. Performed By: #### L PT, LPTT ####[facility] [address]ybefav22798 [place] [address] URINALYSIS COMPLETEon 2017 APPEARANCE CLEAR Normal CLEAR [facility] Comment on above: Performed By: #### L UA ####[facility] Xnboblktxk76729 [place] [address] BILIRUBIN Negative Normal NEGATIVE [facility] Comment on above: Performed By: #### L UA ####[facility] D[address]msuh[address]q16769 [place] [address] BLOOD Negative Normal NEGATIVE [facility] Comment on above: Performed By: #### L UA ####[facility] Hznthxiexc12762 [place] [address] Color Nom (U) Yellow Normal YELLOW [facility] Comment on above: Performed By: #### L UA ####[facility] Khntgpctlh72204 [place] [address] GLUCOSE Negative Normal NEGATIVE [facility] Comment on above: Performed By: #### L UA ####[facility] [address] [place] [address] KETONE Negative Normal NEGATIVE [facility] Comment on above: Performed By: #### L UA ####[facility] [address]qjt[address] [place] [address] 16696 LEUK ESTERASE Negative Normal NEGATIVE [facility] Comment on above: Performed By: #### L UA ####[address] [address] NITRITE Negative Normal NEGATIVE [facility] Comment on above: Performed By: #### L UA ####[facility] [address] [place] [address] 73144 PH 5.0 Normal 5.0-9.0 [facility] Comment on above: Performed By: #### L UA ####[facility] Nxxvwkwppi35731 [place] [address] Protein mass conc Negative Normal NEGATIVE [facility] Comment on above: Performed By: #### L UA ####[facility] Nd[address]ownzp07[address] [place] [address] SPEC GRAV 1.008 Normal 1.005-1.030 [facility] Comment on above: Performed By: #### L UA ####[facility] Tqfy[address]qywc74669 [place] [address] UROBIL Negative Normal NEGATIVE [facility] Comment on above: Performed By: #### L UA ####[facility] Tl[address]shxbqra56182 [place] [address] Otheron 05-08-2013 Please click on the link to view the study images Normal MP-Reproduct claudy Endocrinolog -[address] Work Phone: Vital Signs Date Time Vital Sign Value Performing Clinician Facility 03-05-2024 09:09-0500 Body mass index (BMI) [Ratio] 43.68 kg/m2 Tess Rinkes DO Work Phone: [facility] 03-05-2024 09:09-0500 Body weight 106.59 kg Tess Saxena DO Work Phone: [facility] 03-05-2024 09:09-0500 Diastolic blood pressure 86 mm[Hg] Tess Rinkes DO Work Phone: [facility] 03-05-2024 09:09-0500 Systolic blood pressure 132 mm[Hg] Tess Rinkes DO Work Phone: [facility] 12-10-2023 13:42-0400 Body height 157.48 cm [facility] 12-10-2023 13:42-0400 Body mass index (BMI) [Ratio] 41.9 kg/m2 [facility] 12-10-2023 13:42-0400 Body weight 103.98 kg [facility] 12-10-2023 13:42-0400 Diastolic blood pressure 80 mm[Hg] [facility] 12-10-2023 13:42-0400 Heart rate 79 /min [facility] 12-10-2023 13:42-0400 Respiratory rate 12 /min [facility] 12-10-2023 13:42-0400 Systolic blood pressure 129 mm[Hg] [facility] 09-22-2023 11:20-0400 Body height 157.5 cm Tino Mulligan MD Work Phone: [facility] 09-22-2023 11:20-0400 Body mass index (BMI) [Ratio] 39.51 kg/m2 Tino Mulligan MD Work Phone: [facility] 09-22-2023 11:20-0400 Body weight 97.98 kg Tino Mulligan MD Work Phone: [facility] 11-27-2022 14:30-0400 Body height 157.48 cm Aquiles Ball Other [employer] Other 11-27-2022 14:30-0400 Body mass index (BMI) [Ratio] 40.05 kg/m2 Aquiles Ball Other [employer] Other 11-27-2022 14:30-0400 Body weight 99.34 kg Aquiles Ball Other [employer] Other 11-27-2022 14:30-0400 Diastolic blood pressure 86 mm[Hg] Aquiles Ball Other [employer] Other 11-27-2022 14:30-0400 Respiratory rate 12 /min Aquiles Ball Other [employer] Other 11-27-2022 14:30-0400 Systolic blood pressure 126 mm[Hg] Aquiles Ball Other [employer] Other 12-28-2021 08:44-0400 Body height 157.48 cm Aquiles E Ball Work Phone: [employer] [facility] DO Work Phone: 12-28-2021 08:44-0400 Body mass index (BMI) [Ratio] 42.07 kg/m2 Aquiles E Ball Work Phone: [employer] [address] DO Work Phone: 12-28-2021 08:44-0400 Body surface area Derived from formula 2.03 m2 Aquiles E Ball Work Phone: [employer] [address] DO Work Phone: 12-28-2021 08:44-0400 Body weight 104.32 kg Aquiles E Ball Work Phone: [employer] [address] DO Work Phone: 12-04-2021 09:12-0400 Body height 157.48 cm Aquiles E Ball Work Phone: FW-BNSHK-Qbtbvh 310 IVF Work Phone: 12-04-2021 09:12-0400 Body mass index (BMI) [Ratio] 40.24 kg/m2 Aquiles E Ball Work Phone: KV-UNQAU-Gfshfm 310 IVF Work Phone: 12-04-2021 09:12-0400 Body surface area Derived from formula 1.99 m2 Aquiles E Ball Work Phone: RD-UWSAH-Gajrhd 310 IVF Work Phone: 12-04-2021 09:12-0400 Body weight 99.79 kg Aquiles E Ball Work Phone: FQ-YTWPP-Enpsnc 310 IVF Work Phone: 09-21-2021 11:12-0400 Body height 157.48 cm Aquiles E Ball Work Phone: SF-IFYFU-Wiahlh 320 Work Phone: 09-21-2021 11:12-0400 Body mass index (BMI) [Ratio] 41.88 kg/m2 Aquiles E Ball Work Phone: HJ-APTNP-Foeegj 320 Work Phone: 09-21-2021 11:12-0400 Body surface area Derived from formula 2.02 m2 Aquiles E Ball Work Phone: WR-AZNMD-Qkrton 320 Work Phone: 09-21-2021 11:12-0400 Body weight 103.87 kg Aquiles E Ball Work Phone: QC-STCBP-Jacrbz 320 Work Phone: 09-21-2021 11:12-0400 Diastolic blood pressure 84 mm[Hg] Aquiles E Ball Work Phone: AM-JEVLV-Ofdfkk 320 Work Phone: 09-21-2021 11:12-0400 Heart rate 76 /min Aquiles E Ball Work Phone: SB-AAOKF-Aqflrs 320 Work Phone: 09-21-2021 11:12-0400 Systolic blood pressure 131 mm[Hg] Aquiles Chapa Ball Work Phone: ZG-AGJOB-Ssgjfk 320 Work Phone: 09-21-2021 11:12-0400 0 1 Aquiles Chapa Ball Work Phone: HF-OMZVJ-Uoiajh 320 Work Phone: Comment on above: [employer] 09-21-2021 11:12-0400 4 1 Aquiles Chapa Ball Work Phone: MA-IPOKT-Zwukcw 320 Work Phone: Comment on above: GRAV 09-21-2021 11:12-0400 1 1 Aquiles Escobedo Work Phone: EB-MZMKB-Znxjrk 320 Work Phone: Comment on above: PARA 06-15-2021 13:09-0400 Body height 157.48 cm Aquiles Chapa Ball Work Phone: CM-COZGU-EAS [address] [place] Work Phone: 06-15-2021 13:09-0400 Body mass index (BMI) [Ratio] 39.51 kg/m2 Aquiles Escobedo Work Phone: DZ-ZRAEM-HBZ [address] [place] Work Phone: 06-15-2021 13:09-0400 Body surface area Derived from formula 1.98 m2 Aquiles Chapa Ball Work Phone: PQ-XMDVY-BSL [address] [place] Work Phone: 06-15-2021 13:09-0400 Body weight 97.98 kg Aquiles Chapa Ball Work Phone: PP-NPJMI-KQW [address] [place] Work Phone: 06-15-2021 13:09-0400 5 1 Aquiles Chapa Ball Work Phone: VK-IMTVU-AKR [address] [place] Work Phone: Comment on above: GRAV 06-15-2021 13:09-0400 1 1 Aquiles E Ball Work Phone: QO-FYPWZ-IVT [address] [place] Work Phone: Comment on above: PARA 06-15-2021 13:09-0400 0 1 Aquiles E Ball Work Phone: NY-SYZCD-MSU [address] [place] Work Phone: Comment on above: [employer] 04-24-2021 15:29-0500 Body mass index (BMI) [Ratio] 39.51 kg/m2 Aquiles E Ball Work Phone: DU-Qscgerlidr-Zwcsge ke 2100 DO Work Phone: 04-24-2021 15:29-0500 Body surface area Derived from formula 1.98 m2 Aquiles E Ball Work Phone: TE-Ufhoyujbal-Uoxfei ke 2100 DO Work Phone: 04-24-2021 15:29-0500 Body weight 97.98 kg Aquiles E Ball Work Phone: OQ-Taxopgqcue-Jwhhkx ke 2100 DO Work Phone: 04-24-2021 15:29-0500 Diastolic blood pressure 88 mm[Hg] Aquiles E Ball Work Phone: ZX-Jlazrfsfqt-Hkwuxl ke 2100 DO Work Phone: 04-24-2021 15:29-0500 Heart rate 76 /min Aquiles E Ball Work Phone: UX-Lvehloprtv-Uoeaoy ke 2100 DO Work Phone: 04-24-2021 15:29-0500 SaO2% (BldA) [Mass fraction] 98 % Aquiles E Ball Work Phone: PF-Dvkiopioih-Nrufry ke 2100 DO Work Phone: 04-24-2021 15:29-0500 Systolic blood pressure 130 mm[Hg] Aquiles E Ball Work Phone: WK-Pfnkqmqtlr-Efikcj ke 2100 DO Work Phone: 01-31-2021 10:14-0400 Body height 157.48 cm Aquiles Chapa Ball Work Phone: YR[facility]azrgvyidvhiel[facility] Work Phone: 01-31-2021 10:14-0400 Body mass index (BMI) [Ratio] 38.41 kg/m2 Aquiles E Ball Work Phone: FC-Hgvqvvcdrdvwqd-[facility] Work Phone: 01-31-2021 10:14-0400 Body surface area Derived from formula 1.95 m2 Aquiles E Ball Work Phone: IR-Ovklingybggjtv-Zm effield Work Phone: 01-31-2021 10:14-0400 Body weight 95.26 kg Aquiles Chapa Ball Work Phone: QH-Zkivragzynngyl-Hx effield Work Phone: 05-04-2020 12:56-0500 BMI (Body Mass Index) 49.04 kg/m2 Luana Godinez CY-FFSE-ZAPS [place] 26481 M Work Phone: 05-04-2020 12:56-0500 Body Temperature 97.4 [degF] Luana Godinez JG-DDIF-PHLE [place] 38059 M Work Phone: 05-04-2020 12:56-0500 Body weight 121.62 kg Luana Godinez XF-AJZB-EKRO [place] 1907[address] M Work Phone: 05-04-2020 12:56-0500 BP Diastolic 86 mm[Hg] Luana Godinez HH-CQOZ-CNHF [place] [address] M Work Phone: 05-04-2020 12:56-0500 BP Systolic 124 mm[Hg] Luana Godinez GL-OVUX-OUTZ [place] 25675 M Work Phone: 05-04-2020 12:56-0500 BSA (Body Surface Area) 2.17 m2 Luana Godinez NS-RNEW-GQCN [place] 54405 M Work Phone: 05-04-2020 12:56-0500 Height 157.48 cm Luana Godinez MT-CIHL-BDIV [place] 575[address] M Work Phone: 05-04-2020 12:56-0500 5 1 Luana Godinez AU-ZFAM-MIXQ [place] 412[address] M Work Phone: Comment on above: 05-04-2020 12:56-0500 0 1 Luana Godinez VN-RZCQ-EJKG [place] 33032 M Work Phone: Comment on above: Para 05-02-2020 16:16-0500 BMI (Body Mass Index) 48.9 kg/m2 Luana Godinez MP-WSPC-WSWH [place] 39[address] M Work Phone: 05-02-2020 16:16-0500 Body Temperature 97 [degF] Luana Godinez BC-PLBG-IOKP [place] 27012 M Work Phone: 05-02-2020 16:16-0500 Body weight 121.28 kg Luana Godinez MP-WSPC-WSWH [place] 10308 M Work Phone: 05-02-2020 16:16-0500 BSA (Body Surface Area) 2.16 m2 Luana Godinez CQ-JNQN-SNIS [place] 64147 M Work Phone: 05-02-2020 16:16-0500 Height 157.48 cm Luana Godinez VZ-YWXY-MBBB [place] 80666 M Work Phone: 05-02-2020 16:16-0500 0 1 Luana Godinez MP-WSPC-WSWH [place] 28834 M Work Phone: Comment on above: Pain Scale Para 05-02-2020 16:16-0500 5 1 Luana Godinez MP-WSPC-WSWH [place] 70733 M Work Phone: Comment on above: 04-28-2020 15:57-0500 BMI (Body Mass Index) 48.52 kg/m2 Luana Godinez MP-WSPC-WSWH [place] 91656 M Work Phone: 04-28-2020 15:57-0500 Body Temperature 97.2 [degF] Luana Godinez SL-VBSQ-ICTP [place] 70517 M Work Phone: 04-28-2020 15:57-0500 Body weight 120.32 kg Luana Godinez MP-WSPC-WSWH [place] 91586 M Work Phone: 04-28-2020 15:57-0500 BP Diastolic 94 mm[Hg] Luana Godinez DK-CFDG-YFBQ [place] 06996 M Work Phone: 04-28-2020 15:57-0500 BP Systolic 138 mm[Hg] Luana Godinez RU-DXLL-DSGS [place] 12687 M Work Phone: 04-28-2020 15:57-0500 BSA (Body Surface Area) 2.16 m2 Luana Godinez ZC-UHHR-JDKL [place] 49961 M Work Phone: 04-28-2020 15:57-0500 Height 157.48 cm Luana Godinez MP-WSPC-WSWH [place] 16949 M Work Phone: 04-28-2020 15:57-0500 0 1 Luana Godinez MP-WSPC-WSWH [place] 35247 M Work Phone: Comment on above: Para Pain Scale 04-28-2020 15:57-0500 5 1 Luana Godinez BB-RUCE-LKKS [place] 67177 M Work Phone: Comment on above: 04-26-2020 17:45-0500 BMI (Body Mass Index) 48.49 kg/m2 Luana Godinez MP-WSPC-WSWH [place] 54035 M Work Phone: 04-26-2020 17:45-0500 Body Temperature 97.4 [degF] Luana Godinez MP-WSPC-WSWH [place] 65670 M Work Phone: 04-26-2020 17:45-0500 Body weight 120.26 kg Luana Godinez MP-WSPC-WSWH [place] 97759 M Work Phone: 04-26-2020 17:45-0500 BP Diastolic 88 mm[Hg] Luana Godinez AS-GNWX-UFWE [place] 28054 M Work Phone: 04-26-2020 17:45-0500 BP Systolic 150 mm[Hg] Luana Godinez MP-WSPC-WSWH [place] 67661 M Work Phone: 04-26-2020 17:45-0500 BSA (Body Surface Area) 2.15 m2 Luana Godinez MP-WSPC-WSWH [place] 14372 M Work Phone: 04-26-2020 17:45-0500 Height 157.48 cm Luana Godinez MP-WSPC-WSWH [place] 07384 M Work Phone: 04-26-2020 17:45-0500 0 1 Luana Godinez MP-WSPC-WSWH [place] 41137 M Work Phone: Comment on above: Pain Scale Para 04-26-2020 17:45-0500 5 1 Luana Godinez MP-WSPC-WSWH [place] 37397 M Work Phone: Comment on above: 04-19-2020 17:14-0500 BMI (Body Mass Index) 46.53 kg/m2 Luana Godinez MP-WSPC-WSWH [place] 33619 M Work Phone: 04-19-2020 17:14-0500 Body Temperature 97.3 [degF] Luana Godinez MP-WSPC-WSWH [place] 73065 M Work Phone: 04-19-2020 17:14-0500 Body weight 115.38 kg Luana Godinez MP-WSPC-WSWH [place] 55114 M Work Phone: 04-19-2020 17:14-0500 BP Diastolic 86 mm[Hg] Luana Godinez MP-WSPC-WSWH [place] 75206 M Work Phone: 04-19-2020 17:14-0500 BP Systolic 124 mm[Hg] Luana Godinez MP-WSPC-WSWH [place] 66648 M Work Phone: 04-19-2020 17:14-0500 BSA (Body Surface Area) 2.12 m2 Luana Godinez MP-WSPC-WSWH [place] 50110 M Work Phone: 04-19-2020 17:14-0500 Height 157.48 cm Luana Godinez MP-WSPC-WSWH [place] 77825 M Work Phone: 04-19-2020 17:14-0500 5 1 Luana Godinez MP-WSPC-WSWH [place] 77194 M Work Phone: Comment on above: 04-19-2020 17:14-0500 0 1 Luana Godinez MP-WSPC-WSWH [place] 93390 M Work Phone: Comment on above: Para Pain Scale 04-11-2020 17:39-0500 BMI (Body Mass Index) 46.71 kg/m2 Luana Godinez MP-WSPC-WSWH [place] 10171 M Work Phone: 04-11-2020 17:39-0500 Body Temperature 97 [degF] Luana Godinez MP-WSPC-WSWH [place] 07329 M Work Phone: 04-11-2020 17:39-0500 Body weight 115.84 kg Luana Godinez MP-WSPC-WSWH [place] 65709 M Work Phone: 04-11-2020 17:39-0500 BP Diastolic 88 mm[Hg] Luana Godinez MP-WSPC-WSWH [place] 51000 M Work Phone: 04-11-2020 17:39-0500 BP Systolic 136 mm[Hg] Luana Godinez MP-WSPC-WSWH [place] 86352 M Work Phone: 04-11-2020 17:39-0500 BSA (Body Surface Area) 2.12 m2 Luana Godinez MP-WSPC-WSWH [place] 04332 M Work Phone: 04-11-2020 17:39-0500 Height 157.48 cm Luana Godinez MP-WSPC-WSWH [place] 83485 M Work Phone: 04-11-2020 17:39-0500 5 1 Luana Godinez MP-WSPC-WSWH [place] 24825 M Work Phone: Comment on above: 04-11-2020 17:39-0500 0 1 Luana Godinez MP-WSPC-WSWH [place] 61522 M Work Phone: Comment on above: Para Pain Scale 04-04-2020 18:06-0500 BMI (Body Mass Index) 45.36 kg/m2 Luana Godinez MP-WSPC-WSWH [place] 80854 M Work Phone: 04-04-2020 18:06-0500 Body Temperature 96.3 [degF] Luana Godinez MP-WSPC-WSWH [place] 93526 M Work Phone: 04-04-2020 18:06-0500 Body weight 112.49 kg Luana Godinez MP-WSPC-WSWH [place] 23354 M Work Phone: 04-04-2020 18:06-0500 BP Diastolic 88 mm[Hg] Luana Godinez MP-WSPC-WSWH [place] 30723 M Work Phone: 04-04-2020 18:06-0500 BP Systolic 130 mm[Hg] Luana Godinez MP-WSPC-WSWH [place] 65640 M Work Phone: 04-04-2020 18:06-0500 BSA (Body Surface Area) 2.09 m2 Luana Godinez MP-WSPC-WSWH [place] 66543 M Work Phone: 04-04-2020 18:06-0500 Height 157.48 cm Luana Godinez MP-WSPC-WSWH [place] 11052 M Work Phone: 04-04-2020 18:06-0500 5 1 Luana Godinez MP-WSPC-WSWH [place] 57014 M Work Phone: Comment on above: 04-04-2020 18:06-0500 0 1 Luana Godinez MP-WSPC-WSWH [place] 63579 M Work Phone: Comment on above: Para 03-28-2020 16:34-0500 BMI (Body Mass Index) 44.45 kg/m2 Luana Godinez MP-WSPC-WSWH [place] 30802 M Work Phone: 03-28-2020 16:34-0500 Body Temperature 97.6 [degF] Luana Godinez MP-WSPC-WSWH [place] 46094 M Work Phone: Comment on above: Method: Temporal 03-28-2020 16:34-0500 Body weight 110.22 kg Luana Godinez MP-WSPC-WSWH [place] 15918 M Work Phone: 03-28-2020 16:34-0500 BP Diastolic 84 mm[Hg] Luana Godinez MP-WSPC-WSWH [place] 64110 M Work Phone: Comment on above: Location: [facility]; Position: Sitting 03-28-2020 16:34-0500 BP Systolic 130 mm[Hg] Luana Godinez MP-WSPC-WSWH [place] 65205 M Work Phone: Comment on above: Location: E; Position: Sitting 03-28-2020 16:34-0500 BSA (Body Surface Area) 2.08 m2 Luana Godinez ZS-ZZRE-IGIZ [place] 57003 M Work Phone: 03-28-2020 16:34-0500 Height 157.48 cm Luana Godinez DB-TMHP-FMQX [place] 69429 M Work Phone: 03-28-2020 16:34-0500 5 1 Luana Godinez AB-FFOU-HJTZ [place] 54920 M Work Phone: Comment on above: 03-28-2020 16:34-0500 0 1 Luana Godinez ME-JEWU-YZZO [place] 12632 M Work Phone: Comment on above: Pain Scale Para 03-22-2020 15:13-0500 BMI (Body Mass Index) 44.26 kg/m2 Luana Stevensi PG-CAHJJ-Dfxxsu 310 IVF Work Phone: 03-22-2020 15:13-0500 Body Temperature 97.6 [degF] Luana Stevensi FP-ZOMNA-Okfwff 310 IVF Work Phone: 03-22-2020 15:13-0500 Body weight 109.77 kg Luana Stevensi DI-CKSVS-Ghzsjn 310 IVF Work Phone: 03-22-2020 15:13-0500 BP Diastolic 80 mm[Hg] Luana Stevensi KB-RYCZH-Ytnbau 310 IVF Work Phone: 03-22-2020 15:13-0500 BP Systolic 140 mm[Hg] Luana Stevensi WM-TOJNM-Dqzggg 310 IVF Work Phone: 03-22-2020 15:13-0500 BSA (Body Surface Area) 2.07 m2 Luana Stevensi MG-SFSXQ-Dpkrpn 310 IVF Work Phone: 03-22-2020 15:13-0500 Height 157.48 cm Luana Godinez PA-ATKVU-Zleazy 310 IVF Work Phone: 03-22-2020 15:13-0500 0 1 Luana Godinez ZP-AMTOW-Tcyvim 310 IVF Work Phone: Comment on above: Pain Scale Para 03-22-2020 15:13-0500 5 1 Luana Godinez NM-VDTXO-Inmiot 310 IVF Work Phone: Comment on above: 03-10-2020 18:36-0500 BMI (Body Mass Index) 43.81 kg/m2 Luana Godinez JL-MEIED-Mdoppn 310 IVF Work Phone: 03-10-2020 18:36-0500 Body Temperature 97.3 [degF] Luana Godinez EQ-KFIVX-Yuzjuq 310 IVF Work Phone: 03-10-2020 18:36-0500 Body weight 108.64 kg Luana Godinez JY-JVQHG-Zayuog 310 IVF Work Phone: 03-10-2020 18:36-0500 BP Diastolic 80 mm[Hg] Luana Godinez YN-MBGHA-Pdawoq 310 IVF Work Phone: 03-10-2020 18:36-0500 BP Systolic 118 mm[Hg] Luana Godinez GT-DUVVR-Hdyvqz 310 IVF Work Phone: 03-10-2020 18:36-0500 BSA (Body Surface Area) 2.06 m2 Luana Godinez VS-CFOXQ-Nyhmat 310 IVF Work Phone: 03-10-2020 18:36-0500 Height 157.48 cm Luana Godinez VE-KMLFU-Bdnbnd 310 IVF Work Phone: 03-10-2020 18:36-0500 0 1 Luana Godinez DZ-ARSDY-Cayaxt 310 IVF Work Phone: Comment on above: Pain Scale Para 03-10-2020 18:36-0500 5 1 Luana Godinez JD-ZQAHM-Ycqkyz 310 IVF Work Phone: Comment on above: 05-05-2019 17:22-0500 BMI (Body Mass Index) 39.51 kg/m2 Luana Godinez RT-CNTER-Qbczfu 310 IVF Work Phone: 05-05-2019 17:22-0500 Body Temperature 97.5 [degF] Luana Godinez QL-MSEZJ-Nkjkoi 310 IVF Work Phone: 05-05-2019 17:22-0500 Body weight 97.98 kg Luana Godinez CQ-LYPZF-Snwsvf 310 IVF Work Phone: 05-05-2019 17:22-0500 BP Diastolic 80 mm[Hg] Luana Stevensi ZB-RJSZO-Mxcrll 310 IVF Work Phone: 05-05-2019 17:22-0500 BP Systolic 122 mm[Hg] Luana Stevensi FV-LVAOL-Npxhkt 310 IVF Work Phone: 05-05-2019 17:22-0500 BSA (Body Surface Area) 1.98 m2 Luana Godinez GB-HKLRP-Jpolfr 310 IVF Work Phone: 05-05-2019 17:22-0500 Height 157.48 cm Luana Godinez LR-XTMPD-Akluvl 310 IVF Work Phone: 05-05-2019 17:22-0500 Pulse (Heart Rate) 85 /min Luana Godinez NT-ANCMM-Rzfh an 310 IVF Work Phone: 05-05-2019 17:22-0500 4 1 Luana Godinez ZC-SBLCC-Mncopu 310 IVF Work Phone: Comment on above: 05-05-2019 17:22-0500 0 1 Luana Stevensi VE-YSOSK-Empvyo 310 IVF Work Phone: Comment on above: Para Pain Scale Encounters Encounter Date Encounter Type Care Provider Facility Start: 11-05-2024 End: 11-05-2024 ambulatory [facility] Start: 09-13-2024 End: 09-13-2024 ambulatory [facility] Start: 08-09-2024 End: 08-09-2024 ambulatory [facility] Start: 07-12-2024 End: 07-12-2024 ambulatory [facility] Start: 06-14-2024 End: 06-14-2024 ambulatory [facility] Start: 04-16-2024 End: 04-16-2024 ambulatory [facility] Start: 03-05-2024 End: 03-05-2024 Bamboo flowsheet Tess Eduard Saxena DO Work Phone: [facility] Start: 03-05-2024 End: 03-05-2024 Bamboo flowsheet Tess Saxena DO Work Phone: [facility] Start: 03-05-2024 End: 03-05-2024 ambulatory [facility] Start: 03-05-2024 End: 03-05-2024 Patient encounter status Tess Saxena DO Work Phone: [facility] Start: 03-05-2024 End: 03-05-2024 Periodic preventive med est patient 40-64yrs Tess Saxena DO Work Phone: [facility] Comment on above: Encounter for gyneco logical examination without abnormal finding; Screening for malignant neoplasm of cervix; Encounter for screening mammogram for breast cancer Start: 01-30-2024 End: 01-30-2024 ambulatory [facility] Start: 12-10-2023 End: 12-10-2023 ambulatory [facility] Work Phone: Start: 12-10-2023 End: 12-10-2023 Encounter for general adult medical examination without abnormal findings [facility] Start: 12-10-2023 End: 12-10-2023 Patient encounter procedure [facility] Physician [facility] Medical [facility] Work Phone: Start: 12-08-2023 Patient encounter status [facility] Start: 11-26-2023 Non-patient / Non-visit [facility] Physician [facility] Work Phone: Start: 11-17-2023 End: 11-17-[address] [facility] Start: 10-06-2023 End: 10-06-[address] [facility] Start: 09-22-2023 End: 09-22-2023 ambulatory TINO MULLIGAN [facility] Start: 09-22-2023 End: 09-22-2023 Office outpatient new 45 minutes Tino Mulligan MD Work Phone: [facility] Comment on above: Chronic low back dallin n without sciatica, unspecified back pain laterality (Primary Dx) Start: 09-08-2023 End: 09-08-[address] [facility] Start: 09-08-2023 End: 09-08-2023 ambulatory Miladis Rodriguez MD Facility: [facility] Start: 08-18-2023 End: 08-18-2023 ambulatory Miladis Rodriguez MD [facility] Start: 08-11-2023 End: 08-11-2023 ambulatory [facility] Start: 08-04-2023 End: 08-04-2023 ambulatory Miladis Rodriguez MD Facility:[facility] Start: 07-14-2023 End: 07-14-[address] [facility] Start: 06-23-2023 End: 06-23-2023 ambulatory [facility] Start: 04-28-2023 End: 04-28-2023 ambulatory Aquiles Escobedo Other [employer] Other Start: 04-28-2023 Telephone encounter Aquiles Escobedo [facility] Start: 12-26-[address] Kelsey De Luna lity:[facility] Mary Wagner Start: 11-27-2022 End: 11-27-2022 ambulatory Aquiles Escobedo Other [facility] Other Start: 11-27-2022 Encounter for genera l adult medical examination without abnormal findings Aquiles Escobedo [facility] Start: 11-27-2022 Periodic preventive med est patient 40-64yrs Aquiles Fanny [facility] Start: 11-11-[address] Kelsey De Luna lity:[id number] Start: 09-30-[address] Kelsey De Luna lity:[id number] Start: 09-09-[address] Kelsey De Luna lity:[id number] Start: 08-23-2022 End: 08-23-2022 ambulatory Aquiles Escobedo Facility:[facility] Start: 08-19-2022 End: 08-20-2022 Evaluation and management of inpatient Aquiles Escobedo Facility:[facility] Start: 08-13-[address] Kelsey De Luna lity:[facility] Mary Wagner Start: 07-26-2022 End: 07-26-2022 ambulatory PHYSICIAN NO FAMILY Facility:[facility] Start: 07-26-2022 End: 07-26-2022 ambulatory DO Tess Rinkes Work Phone: [facility] Work Phone: Start: 07-26-2022 End: 07-26-2022 Departed Referred DO Tess Rinkes Work Phone: [facility] [place] Work Phone: Start: 07-03-2022 End: 07-04-2022 ambulatory TESSJAS SAXENA Facility:[facility] Start: 06-17-[address] Kelsey De Luna lity:[id number] Start: 06-05-2022 End: 06-06-[address] AQUILES ESCOBEDO Facility:[facility] Start: 05-21-[address] Kelsey De Luna lity:[facility] Mary Wagner Start: 04-22-[address] Kelsey De Luna lity:[id number] Start: 04-10-2022 End: 04-11-[address] AQUILES ESCOBEDO Facility:[facility] Start: 02-18-[address] Kelsey De Luna lity:[id number] Start: 02-04-2022 End: 02-05-2022 ambulatory TESS SAXENA Facility:[facility] Start: 02-04-2022 Rx Renewal Aquiles mesa Work Phone: SX-EVTSB-Vhrjxwr 206A IVF Work Phone: Start: 01-28-[address] Kelsey De Luna lity:[id number] Start: 01-10-2022 Rx Renewal Aquiles mesa Work Phone: IK-OEBKP-Qxmeye 310 IVF Work Phone: Start: 01-10-2022 Patient encounter procedure Aquiles Escobedo Work Phone: BB-XXJGI-Qqbjvq 310 IVF Work Phone: Start: 01-10-2022 ULTRASOUND, Provider : [facility] RDMS [id number] 1,MG OBGYN, Status: Pen, Time: 3:00 PM Aquiles Escobedo Work Phone: QZ-GSFFW-Eaktgp 310 IVF Work Phone: Start: 01-08-2022 AUDIT Aquiles mesa Work Phone: BF-CTVBT-Wyvhpd 310 IVF Work Phone: Start: 12-28-2021 AUDIT Aquiles mesa Work Phone: IU-IHPIY-Fnnyvj 310 IVF Work Phone: Start: 12-28-2021 Office outpatient vi sit 25 minutes Aquiles Escobedo Work Phone: XS-Rgtbbttcks-Ioizfdxt 2100 DO Work Phone: Start: 12-21-2021 Chart Update Aquiles mesa Work Phone: VW-KYDAG-Yrpocj 310 IVF Work Phone: Start: 12-21-2021 Patient encounter procedure Aquiles Escobedo Work Phone: VR-QSKFY-Csmkywn 206A IVF Work Phone: Start: 12-11-2021 Patient encounter procedure Aquiles Escobedo Work Phone: AY-FZQVV-Mmkfzy 310 IVF Work Phone: Start: 12-04-2021 Patient encounter procedure Aquiles Escobedo Work Phone: NJ-NRQON-Qnkodb 310 IVF Work Phone: Start: 11-16-2021 AUDIT Aquiles Eduard mesa Work Phone: UE-ACEJI-Uecgzh 310 IVF Work Phone: Start: 11-16-2021 Encounter for genera l adult medical examination without abnormal findings DR AQUILES ESCOBEDO [facility] Start: 11-15-2021 End: 11-16-[address] AQUILES ESCOBEDO Facility:[facility] Start: 11-15-2021 End: 11-16-2021 Encounter for general adult medical examination without abnormal findings DR AQUILES ESCOBEDO Facility:[facility] Start: 11-02-2021 Rx Renewal Aquiles Chapa [place] Work Phone: VZ-DLNAM-Wqxdgm 310 IVF Work Phone: Start: 10-19-2021 Chart Update Aquiles mesa Work Phone: NY-YNLQH-Hrsyba 310 IVF Work Phone: Start: 10-04-2021 Patient encounter procedure Aquiles Escobedo Work Phone: NR-NHZGE-Ebapuz 310 IVF Work Phone: Start: 09-21-2021 Patient encounter procedure Aquiles Chapa Fanny Work Phone: WM-ABABR-Lymcci 320 Work Phone: Start: 09-12-2021 Chart Update Aquiles mesa Work Phone: EE-LVSEE-Mtljve 310 IVF Work Phone: Start: 09-10-2021 Chart Update Aquiles mesa Work Phone: VZ-QZBPF-Yqplnjr 206A IVF Work Phone: Start: 09-10-2021 Patient encounter procedure Aquiles Escobedo Work Phone: YL-LWPGZ-Afucuv 310 IVF Work Phone: Start: 09-01-2021 AUDIT Aquiles Chapa Bal l Work Phone: [facility] Work Phone: Start: 08-31-2021 Patient encounter procedure Aquiles Escobedo Work Phone: HE-DUEDD-Snppbuz 206A IVF Work Phone: Start: 07-27-2021 Chart Update Aquiles Chapa Bal l Work Phone: XO-AQHXU-Xkruem 310 IVF Work Phone: Start: 07-26-2021 AUDIT Aquiles Chapa Bal l Work Phone: IH-OPLQD-Jkgkacm 206A IVF Work Phone: Start: 06-26-2021 Image Encounter Aquiles Eduard Bal l Work Phone: zz DO NOT USE - [employer] Only Start: 06-18-2021 AUDIT Aquiles Chapa Bal l Work Phone: JP-Nnaryzwohc-Bsgwho Work Phone: Start: 06-15-2021 Office outpatient vi sit 25 minutes Aquiles Chapa Fanny Work Phone: BB-TKEYQ-Ctodovs 206A IVF Work Phone: Start: 06-15-2021 VIRFUVCORNELLE, Provider : Zari Oviedo, Status: Pen, Time: 1:30 PM Aquiles Escobedo Work Phone: WC-Nihdyavtmd-Tdoqaj Work Phone: Start: 06-14-2021 Chart Update Aquiles Coburn l Work Phone: YP-Sqssaggguy-Urmhjk Work Phone: Start: 06-12-2021 Chart Update Aquiles Chapa Bal l Work Phone: CB-Ycqlxetxfg-Wzkszcep 2100 DO Work Phone: Start: 06-11-2021 Chart Update Aquiles Chapa Bal l Work Phone: ZN-Bjohrknjmk-Ukkhranw 2100 DO Work Phone: Start: 05-22-2021 Chart Update Aquiles Coburn l Work Phone: JZ-Owivgqyeai-Eoibcuqr 2100 DO Work Phone: Start: 04-24-2021 Office consultation new/estab patient 60 min Aquiles Escobedo Work Phone: YS-Jhvvattbhp-Hmeacwxo 2100 DO Work Phone: Start: 04-24-2021 Patient encounter procedure Aquiles Escobedo Work Phone: MO-Uuphfgguaz-Pvvxarfr 2100 DO Work Phone: Start: 02-20-2021 AUDIT Aquiles Coburn l Work Phone: QL-Vjkkdztdlaybjq-Jrkz field Work Phone: Start: 02-15-2021 Chart Update Aquiles Chapa Bal l Work Phone: IF-Gfeexujgzfvfzz-Xgpn field Work Phone: Start: 01-31-2021 Patient encounter procedure Aquiles Escobedo Work Phone: TF-Xzreyqbshqmigk-Kuut field Work Phone: Start: 05-04-2020 Patient encounter procedure Luana Godinez QU-XHFZ-HVAY [place] [address] M Work Phone: Start: 05-02-2020 Patient encounter procedure Luana Godinez ZE-EZVF-TLXN [place] [address] M Work Phone: Start: 04-28-2020 Patient encounter procedure Luana Godinez VV-GPGL-NKVV [place] 560[address] M Work Phone: Start: 04-26-2020 Patient encounter procedure Luana Godinez BY-CVAI-MIZA [place] [address] M Work Phone: Start: 04-19-2020 Patient encounter procedure Luana Godinez KS-OLYO-LHSO [place] 88846 M Work Phone: Start: 04-11-2020 Patient encounter procedure Luana Godinez OF-TLEI-SHTA [place] [address]12[address] M Work Phone: Start: 04-04-2020 Patient encounter procedure Luana Godinez FF-SXEL-YDHC [place] [address] M Work Phone: Start: 03-28-2020 Patient encounter procedure Luana Godinez WH-BAJF-KGYF [place] 44[address] M Work Phone: Start: 03-22-2020 Patient encounter procedure Luana Godinez YE-AUZYM-Cvgsnn 310 IVF Work Phone: Start: 03-10-2020 Patient encounter procedure Luana Godinez ZV-TZPZB-Cwtxvk 310 IVF Work Phone: Start: 02-08-2020 Patient encounter procedure Luana Godinez BP-QNTCO-Piophy 310 IVF Work Phone: Start: 01-11-2020 Patient encounter procedure Luana Godinez FD-ISLTI-Yhpvki 310 IVF Work Phone: Start: 01-07-2020 Patient encounter procedure Luana Godinez OP-UOTCS-Ixvkpw 310 IVF Work Phone: Start: 12-17-2019 Patient encounter procedure Luana Godinez IQ-OTHJF-Udcnqj 310 IVF Work Phone: Start: 12-01-2019 Patient encounter procedure Luana Godinez PU-OQMOO-Zhnyeb 310 IVF Work Phone: Start: 11-23-2019 Patient encounter procedure Luana Godinez NJ-NCOZB-Thhopw 310 IVF Work Phone: Start: 11-17-2019 Patient encounter procedure Luana Godinez JN-HYAOF-Jfnbwe 310 IVF Work Phone: Start: 11-16-2019 Patient encounter procedure Luana Godinez BP-OQFTE-Xpmamy 310 IVF Work Phone: Start: 11-09-2019 Patient encounter procedure Luana Godinez KX-JAKZP-Lddfgy 310 IVF Work Phone: Start: 11-03-2019 Patient encounter procedure Luana Godinez RJ-EYTAW-Qxaudr 310 IVF Work Phone: Start: 11-01-2019 Patient encounter procedure Luana Godinez ZR-AHLZM-Vvadhh 310 IVF Work Phone: Start: 10-21-2019 Patient encounter procedure Luana Godinez VY-XRBAF-Ayfkzx 310 IVF Work Phone: Start: 10-13-2019 Patient encounter procedure Luana Godinez OH-ZSWSV-Ephxgp 310 IVF Work Phone: Start: 10-04-2019 Patient encounter procedure Luana Godinez JR-NHGQJ-Yijgoc 310 IVF Work Phone: Start: 10-01-2019 Patient encounter procedure Luana Godinez OQ-AILQL-Imvqca 310 IVF Work Phone: Start: 09-30-2019 Patient encounter procedure Luana Godinez DE-XWXSV-Asdwlc 310 IVF Work Phone: Start: 09-20-2019 Patient encounter procedure Luana Godinez KP-FVPIJ-Hwmjos 310 IVF Work Phone: Start: 09-08-2019 Patient encounter procedure Luana Godinez OM-HJGZX-Ybqmjj 310 IVF Work Phone: Start: 09-02-2019 Patient encounter procedure Luana Godinez VZ-TPTVD-Sfazpx 310 IVF Work Phone: Start: 06-22-2019 Patient encounter procedure Luana Godinez GX-VZLBN-Xtxcqk 310 IVF Work Phone: Start: 05-25-2019 Patient encounter procedure Luana Godinez MP-Reproductive Endocrinology-[place] Work Phone: Start: 05-05-2019 Patient encounter procedure Luana Godinez MG-CGIBF-Lameka 310 IVF Work Phone: Start: 04-09-2019 Patient encounter procedure Luana Godinez CW-OJUCZ-Etuoiv 310 IVF Work Phone: Start: 03-25-2019 Patient encounter procedure Luana Godinez WK-UFWHT-Kestbm 310 IVF Work Phone: Start: 03-15-2019 Patient encounter procedure Luana Godinez KX-IOVAN-Vhcfbb 310 IVF Work Phone: Start: 03-02-2019 Patient encounter procedure Luana Godinez XM-KVYAB-Bksvwf 310 IVF Work Phone: Start: 02-05-2019 Patient encounter procedure Luana Godinez SD-GBDLC-Wcwwbq 310 IVF Work Phone: Start: 02-02-2019 Patient encounter procedure Luana Godinez GO-OMOZS-Kfpsxl 310 IVF Work Phone: Start: 01-21-2019 Patient encounter procedure Luana Godinez YE-GFIBT-Pngdvo 310 IVF Work Phone: Start: 12-08-2018 Patient encounter procedure Luana Godinez MI-WGDVW-Mahios 310 IVF Work Phone: Start: 11-02-2018 Patient encounter procedure Luana Godinez LY-BIHGW-Woniup 310 IVF Work Phone: Start: 10-30-2018 Patient encounter procedure Luana Godinez HP-MERTX-Kmxpse 310 IVF Work Phone: Start: 10-26-2018 Patient encounter procedure Luana Godinez CZ-BXXFC-Fuspbx 310 IVF Work Phone: Start: 10-15-2018 Patient encounter procedure Luana Godinez II-HXMTP-Nvjxth 310 IVF Work Phone: Start: 09-28-2018 Patient encounter procedure Luana Godinez UY-GHXWV-Rrxtqv 310 IVF Work Phone: Start: 09-16-2018 Patient encounter procedure Luana Godinez DS-UBISS-Bpcuoe 310 IVF Work Phone: Start: 09-08-2018 Patient encounter procedure Luana Godinez IV-WZIHN-Fuonuv 310 IVF Work Phone: Start: 08-17-2018 Patient encounter procedure Luana JORDAN-OBGYN-Risman 310 IVF Work Phone: Start: 07-14-2018 Patient encounter procedure Luana Morin MP-Reproductive Endocrinology-[place] 206 Work Phone: Start: 07-03-2018 Patient encounter procedure Luana Morin MP-Reproductive Endocrinology-Mary 206 Work Phone: Start: 06-11-2018 Patient encounter procedure Luana Morin MP-Reproductive Endocrinology-[place] 206 Work Phone: Start: 03-09-2018 Patient encounter procedure Luana Morin MP-Reproductive Endocrinology-Mary 206 Work Phone: Start: 02-27-2018 Patient encounter procedure Og Cullen Facility:[facility] [place] Start: 02-21-2018 Patient encounter procedure Luana Morin MP-Reproductive Endocrinology-Mary 206 Work Phone: Start: 02-11-2018 Patient encounter procedure Luana Morin MP-Reproductive Endocrinology-[place] 206 Work Phone: Start: 02-09-2018 Patient encounter procedure Luana Morin MP-Reproductive Endocrinology-Mary 206 Work Phone: Start: 02-07-2018 Patient encounter procedure Luana Morin MP-Reproductive Endocrinology-Mary 206 Work Phone: Start: 02-05-2018 Patient encounter procedure Luana Morin MP-Reproductive Endocrinology-[place] 206 Work Phone: Start: 12-26-2017 Patient encounter procedure Luana Morin MP-Reproductive Endocrinology-Mary 206 Work Phone: Start: 07-31-2017 Patient encounter procedure Og S Subhash Facility:[facility] [place] Start: 07-30-2017 Patient encounter procedure Og Cullen Facility:[facility] [place] Start: 07-28-2017 Patient encounter procedure Og Cullen Facility:[facility] [place] Start: 06-11-2017 Patient encounter procedure Luana Morin MP-Reproductive Endocrinology-Mary 206 Work Phone: Start: 06-10-2017 Patient encounter procedure Luana Morin MP-Reproductive Endocrinology-[place] 206 Work Phone: Start: 06-04-2017 Patient encounter procedure Luana Morin MP-Reproductive Endocrinology-Mary 206 Work Phone: Start: 06-02-2017 Patient encounter procedure Luaan Morin MP-Reproductive Endocrinology-[place] 206 Work Phone: Start: 05-27-2017 Patient encounter procedure Luana Morin MP-Reproductive Endocrinology-[place] 206 Work Phone: Start: 05-06-2017 Patient encounter procedure Luana Morin MP-Reproductive Endocrinology-[place] 206 Work Phone: Start: 04-22-2017 Patient encounter procedure Luana Morin MP-Reproductive Endocrinology-Mary 206 Work Phone: Start: 04-01-2017 Patient encounter procedure Luana Morin MP-Reproductive Endocrinology-Mary 206 Work Phone: Start: 03-21-2017 Patient encounter procedure Luana Morin MP-Reproductive Endocrinology-[place] 206 Work Phone: Start: 03-19-2017 Patient encounter procedure Luana Morin MP-Reproductive Endocrinology-[place] 206 Work Phone: Start: 03-13-2017 Patient encounter procedure Luana Morin MP-Reproductive Endocrinology-Mary 206 Work Phone: Start: 01-30-2017 Patient encounter procedure Luana Morin MP-Reproductive Endocrinology-[place] 206 Work Phone: Start: 01-16-2017 Patient encounter procedure Luana Morin MP-Reproductive Endocrinology-Mary 206 Work Phone: Start: 01-02-2017 Patient encounter procedure Luana Morin MP-Reproductive Endocrinology-[place] 206 Work Phone: Start: 12-27-2016 Patient encounter procedure Luana Morin MP-Reproductive Endocrinology-[place] 206 Work Phone: Start: 12-19-2016 Patient encounter procedure Luana Morin MP-Reproductive Endocrinology-[place] 206 Work Phone: Start: 12-16-2016 Patient encounter procedure Luana Morin MP-Reproductive Endocrinology-[place] 206 Work Phone: Start: 12-14-2016 Patient encounter procedure Luana Morin MP-Reproductive Endocrinology-[place] 206 Work Phone: Start: 12-12-2016 Patient encounter procedure Luana Morin MP-Reproductive Endocrinology-[place] 206 Work Phone: Start: 12-10-2016 Patient encounter procedure Luana Morin MP-Reproductive Endocrinology-Mary 206 Work Phone: Start: 12-03-2016 Patient encounter procedure Luana Morin MP-Reproductive Endocrinology-[place] 206 Work Phone: Procedures Date Procedure Procedure Detail Performing Clinician Start: 11-05-2024 End: 11-05-2024 Psychotherapy w/patient 60 minutes Recurrent major depressive disorder, in partial remission Kelsey Gray PhD Work Phone: Comment on above: Recurrent major depr essive disorder, in partial remission (Primary Dx) Start: 09-13-2024 End: 09-13-2024 Psychotherapy w/patient 60 minutes Recurrent major depressive disorder, in partial remission Kelsey Gray PhD Work Phone: Comment on above: Recurrent major depr essive disorder, in partial remission (Primary Dx) Start: 08-09-2024 End: 08-09-2024 Psychotherapy w/patient 60 minutes Recurrent major depressive disorder, in partial remission (CMS-HCC) Kelsey Gray PhD Work Phone: Comment on above: Recurrent major depr essive disorder, in partial remission (CMS-HCC) (Primary Dx) Start: 07-12-2024 End: 07-12-2024 Psychotherapy w/patient 60 minutes Recurrent major depressive disorder, in partial remission (CMS-HCC) Kelsey Gray PhD Work Phone: Comment on above: Recurrent major depr essive disorder, in partial remission (CMS-HCC) (Primary Dx) Start: 06-14-2024 End: 06-14-2024 Psychotherapy w/patient 60 minutes Recurrent major depressive disorder, in partial remission (CMS-HCC) Kelsey Gray PhD Work Phone: Comment on above: Recurrent major depr essive disorder, in partial remission (CMS-HCC) (Primary Dx) Start: 04-16-2024 End: 04-16-2024 Psychotherapy w/patient 60 minutes Recurrent major depressive disorder, in partial remission (CMS-HCC) Kelsey Gray PhD Work Phone: Comment on above: Recurrent major depr essive disorder, in partial remission (CMS-HCC) (Primary Dx) Start: 03-05-2024 End: 03-05-2024 Psychotherapy w/patient 60 minutes Recurrent major depressive disorder, in partial remission (CMS-HCC) Kelsey Gray PhD Work Phone: Comment on above: Recurrent major depr essive disorder, in partial remission (CMS-HCC) (Primary Dx) Start: 01-30-2024 End: 01-30-2024 Psychotherapy w/patient 60 minutes Recurrent major depressive disorder, in partial remission (CMS-HCC) Kelsey Gray PhD Work Phone: Comment on above: Recurrent major depr essive disorder, in partial remission (CMS-HCC) (Primary Dx) Start: 11-17-2023 End: 11-17-2023 Psychotherapy w/patient 60 minutes Recurrent major depressive disorder, in partial remission (CMS-HCC) Kelsey Gray PhD Work Phone: Comment on above: Recurrent major depr essive disorder, in partial remission (CMS-HCC) (Primary Dx) Start: 10-06-2023 End: 10-06-2023 Psychotherapy w/patient 60 minutes Recurrent major depressive disorder, in partial remission (CMS-HCC) Kelsey Gray PhD Work Phone: Comment on above: Recurrent major depr essive disorder, in partial remission (CMS-HCC) (Primary Dx) Start: 09-08-2023 End: 09-08-2023 Psychotherapy w/patient 60 [...] on above: Result Comment: PERF ORMED BY: [facility] [address] [place] [address] PATHOLOGIST HOSPITAL SCIENTIST RENETTA CASE M.D. Start: 06-17-2022 Psychotherapy w/aylin [...] 03-22-2020 Protein total xcpt refractometry urine Luana Stevensi Start: 08-19-2019 Assay of estradiol Andres tadeo Gretchen Start: 08-19-2019 Assay of progesterone B ji Stevensi Start: 08-19-2019 IO Ultrasound, limit ed pelvic, follicle monitoring Luana Stevensi Start: 07-28-2018 Mammography Kelsey Oseguera ayse PhD Work Phone: Start: 04-01-2017 Colonoscopy Tess palomino DO Work Phone: Dilation and curettage Shanita Morin History of Cholecyst ectomy Laparoscopic Luana Morin History of Explorato ry Laparoscopy Luana Morin Comment on above: For pelvic pain--> n o evidence of endometriosis. Was then diagnosed with Crohn's disease.; History of Foot Surgery Andres Morin Operation on gallbladder Bro eitan Morin Plan of Treatment Date Care Activity Detail Author Start: 04-27-2030 Screening for malignant neoplasm of colon [facility] Start: 03-10-2030 DTaP/Tdap/Td Vaccine s (2 - Td or Tdap) DTaP/Tdap/Td Vaccines (2 - Td or Tdap) [facility] Start: 02-27-2028 Screening for malignant neoplasm of cervix [facility] Start: 04-01-2027 Screening for malignant neoplasm of colon [facility] Start: 04-08-2025 End: 04-08-2025 Patient encounter procedure 04/08/2025 11:45 AM EST Office Visit [facility] [address] [place] [address] Tess Saxena DO [address] [place] [address] [facility] Start: 03-18-2025 End: 03-18-2025 Telemedicine consultation with patient [facility] Start: 03-06-2025 [facility] Start: 01-28-2025 End: 01-28-2025 Telemedicine consultation with patient 01/28/2025 11:00 AM EDT Telemedicine [facility] [address] [facility] [address] [place] [phone] [place] [address] Margot Muñoz Department of [employer] OPERATOR-[place] [address] [facility] Start: 12-24-2024 End: 12-24-2024 Telemedicine consultation with patient 12/24/2024 10:00 AM EDT Telemedicine [facility] [address] [facility] [address] [place] [phone] [place] [address] Margot Muñoz Department of PUFF IR[employer] OPERATOR-Behavioral Medicine [place] [id number] [facility] Start: 11-29-2024 Influenza vaccination Influenza Vacc ine (#1) [facility] Start: 11-05-2024 End: 11-05-2024 Telemedicine consultation with patient 11/05/2024 1:00 PM EDT Telemedicine [facility] [address] [facility] [address] [place] [phone] [place] [address] Margot Muñoz Department of [employer] OPERATOR-Behavioral Medicine [place] [id number] [facility] Start: 10-04-2024 Screening for malignant neoplasm of cervix [facility] Start: 09-13-2024 End: 09-13-2024 Telemedicine consultation with patient 09/13/2024 1:00 PM EDT Telemedicine [facility] [address] [place] [phone] [place] [address] Margot Muñoz Department of [employer] OPERATOR-[place] [address] [facility] Start: 08-30-2024 Diabetes mellitus screening Diabetes Screening [facility] Start: 08-09-2024 End: 08-09-2024 Telemedicine consultation with patient 08/09/2024 1:00 PM EDT Telemedicine [facility] [address] [facility] [address] [place] [address] [place] [address] Mragot Muñoz Department of [employer] IR[employer] OPERATOR-[place] [address] [facility] Start: 07-12-2024 End: 07-12-2024 Telemedicine consultation with patient 07/12/2024 1:00 PM EDT Telemedicine [facility] [address] [facility] [address] [place] [phone] [place] [address] Margot Muñoz Department of [employer] OPERATOR-[place] [address] [facility] Start: 06-14-2024 End: 06-14-2024 Telemedicine consultation with patient Holly Dorsey Maria Teresa Start: 04-16-2024 End: 04-16-2024 Telemedicine consultation with patient [facility] Start: 03-05-2024 End: 03-05-2024 Telemedicine consultation with patient 03/05/2024 1:00 PM EST Telemedicine [facility] [place] [address] Margot Muñoz [address] [address] [place] [address] Margot Muñoz Department of [employer] OPERATOR-[place] [address] [facility] Start: 03-05-2024 End: 03-05-2024 Patient encounter procedure 03/05/2024 9:00 AM EST Office Visit [facility] [address] [place] [address] Tess Saxena, DO [address] [place] [address] Encounter for gynecological examination without abnormal finding; Screening for malignant neoplasm of cervix [facility] Comment on above: Encounter for gyneco logical examination without abnormal finding; Screening for malignant neoplasm of cervix Start: 01-30-2024 End: 01-30-2024 Telemedicine consultation with patient 01/30/2024 1:00 PM EDT Telemedicine [facility] [address] Margot Muñoz [facility] [address] [place] [address] [place] [address] Margot Muñoz Department of [employer]FF IR[employer] OPERATOR-[place] [address] [facility] Start: 01-02-2024 End: 01-02-2024 Telemedicine consultation with patient 01/02/2024 1:00 PM EDT Telemedicine [facility] [address] Margot Muñoz [facility] [address] [place] [address] [place] [address] Margot Muñoz Department of PUFF IR[employer] OPERATOR-[place] [address] [facility] Start: 12-08-2023 End: 12-08-2023 Telemedicine consultation with patient 12/08/2023 1:00 PM EDT Telemedicine Holly Morel [facility] [address]bell [facility] [address] [place] [phone] [place] [address] Margot Muñoz Department of [employer] IR[employer] OPERATOR-[place] [address] Holly Morel Start: 11-30-2023 COVID-19 Vaccine ( season) COVID-19 Vaccine ( season) [facility] Start: 11-30-2023 Influenza vaccination Influenza Vacc ine (#1) [facility] Start: 11-07-2023 End: 11-07-2023 Telemedicine consultation with patient 11/07/2023 1:00 PM EDT Telemedicine [facility] [place] [address] Margot Muñoz [address] [address] [place] [address] Margot Muñoz Department of [employer] OPERATOR-[place] [address] [facility] Start: 10-06-2023 End: 10-06-2023 Telemedicine consultation with patient 10/06/2023 8:00 AM EDT Telemedicine Holly Morel [address] [place] [phone] [place] [address] Margot Muñoz Department of PUFF IR[employer] OPERATOR-[place] [address] [facility] Sunita Morel Start: 09-22-2023 End: 09-22-2023 Patient encounter procedure 09/22/2023 11:00 AM EDT Office Visit [facility] [address] [place] [phone] [place] [address] Margot Muñoz Department [place] [address] [facility] Start: 09-08-2023 End: 09-08-2023 Telemedicine consultation with patient 09/08/2023 1:00 PM EDT Telemedicine [facility] Risjayesh Morel [address] [place] [phone] [place] [address] Margot Muñoz Department of [employer]FF IR[employer] OPERATOR-[place] [address] Holly Morel Start: 11-29-2022 COVID-19 Vaccine ( season) COVID-19 Vaccine (2022- season) [facility] Start: 07-26-2022 Group B Streptococcu s Culture Group B Streptococcus Culture [facility] Start: 06-07-2022 FUV, Provider: Flakita Antonio, Status: Pen, Time: 8:45 AM FUV, Provider: Flakita Antonio, Status: Pen, Time: 8:45 AM BK-Aveqbfkjql-Hgwqup ke 2100 DO Work Phone: Start: 04-26-2022 Pneumococcal Vaccine : Pediatrics (0 to 5 Years) and At-Risk Patients (6 to 64 Years) (2 of 2 - PCV) Pneumococcal Vaccine: Pediatrics (0 to 5 Years) and At-Risk Patients (6 to 64 Years) (2 of 2 - PCV) [facility] Start: 04-26-2022 Pneumococcal Vaccine : Pediatrics and At-Risk Adult Patients (2 of 2 - PCV) Pneumococcal Vaccine: Pediatrics and At-Risk Adult Patients (2 of 2 - PCV) [facility] Start: 01-10-2022 ULTRASOUND, Provider : OBGYN IVF RDMS [id number] 1,MG OBGYN, Status: Pen, Time: 1:30 PM ULTRASOUND, Provider: OBGYN IVF RDMS [id number] 1,MG OBGYN, Status: Pen, Time: 1:30 PM ZH-Jaukmplgyz-Nuzvgw ke 2100 DO Work Phone: Start: 12-28-2021 RNVISIT, Provider: I VF RAYNA ZAPATA, Status: Pen, Time: 8:00 AM RNVISIT, Provider: IVF NURSE CIELO WAGNEROB, Status: Pen, Time: 8:00 AM JC-NXSCG-Qocweot 206A IVF Work Phone: Start: 12-21-2021 RNVISIT, Provider: I CIELO ANNOB, Status: Pen, Time: 8:00 AM RNVISIT, Provider: IVF NURSE BERNARDIFOB, Status: Pen, Time: 8:00 AM MV-ZSCVX-Qcrffk 310 IVF Work Phone: Start: 12-04-2021 ULTRALAB, Provider: OBGYN IVF RDMS BERNARD 1,MG OBGYN, Status: Pen, Time: 7:40 AM ULTRALAB, Provider: OBGYN IVF RDMS BERNARD 1,MG OBGYN, Status: Pen, Time: 7:40 AM NK-CBAYJ-Xlcedx 310 IVF Work Phone: Start: 10-04-2021 HYSTEROSPY, Provider : Lon Johnson, Status: Pen, Time: 2:00 PM HYSTEROSPY, Provider: Lon Johnson, Status: Pen, Time: 2:00 PM HH-TOSFU-Vsgfbm 320 Work Phone: Start: 09-21-2021 FUVREI, Provider: Zari Oviedo, Status: Pen, Time: 11:00 AM FUVREI, Provider: Zari Oviedo, Status: Pen, Time: 11:00 AM MX-EKODY-Nmaryck 206A IVF Work Phone: Start: 09-10-2021 RNVISIT, Provider: I VF NURSE RAYNA WAGNER, Status: Pen, Time: 6:50 AM RNVISIT, Provider: IVF NURSE RAYNA WAGNER, Status: Pen, Time: 6:50 AM RD-VDWFZ-Ikiozfl 206A IVF Work Phone: Start: 07-17-2021 FUV, Provider: Flakita Antonio, Status: Pen, Time: 3:45 PM FUV, Provider: Flakita Antonio, Status: Pen, Time: 3:45 PM WZ-Dpvkivaybz-Beaugs Work Phone: Start: 06-15-2021 VIRFUVHOME, Provider : Zari Oviedo, Status: Pen, Time: 1:30 PM VIRFUVHOME, Provider: Zari Oviedo, Status: Pen, Time: 1:30 PM VT-Rxstfxqeeb-Igegwi ke 2100 DO Work Phone: Start: 06-15-2021 FUV, Provider: Flakita Antonio, Status: Pen, Time: 7:45 AM FUV, Provider: Flakita Antonio, Status: Pen, Time: 7:45 AM NN-Daizkjczra-Etaqsl ke 2100 DO Work Phone: Start: 05-22-2021 FUV, Provider: Flakita Antonio, Status: Pen, Time: 3:45 PM FUV, Provider: Flakita Antonio, Status: Pen, Time: 3:45 PM IX-Owcjmzpzrl-Tbleqi ke 2100 DO Work Phone: Start: 04-24-2021 NPVRFRL, Provider: Flakita Antonio, Status: Pen, Time: 3:00 PM NPVRFRL, Provider: Flakita Antonio, Status: Pen, Time: 3:00 PM [facility] Work Phone: Start: 07-29-2019 Screening for malignant neoplasm of breast Mammogram [facility] Start: 1999 Screening for malignant neoplasm of cervix HPV/Cotest [facility] Start: 1997 Hepatitis B Vaccines (1 of 3 - 19+ 3-dose series) Hepatitis B Vaccines (1 of 3 - 19+ 3-dose series) [facility] Start: 1997 Zoster Vaccines (1 o f 2) Zoster Vaccines (1 of 2) [facility] Start: 1983 COVID-19 Vaccine (#1) COVID-19 Vacci ne (#1) [facility] Start: 1978 Lipid panel Lipid Panel [facility] Start: 1978 Screening for malignant neoplasm of colon [facility] Start: 1978 Yearly Adult Physical Yearly Adult P hysical [facility] DBT Breast - bilater al screening Bilateral screening mammogram with tomosynthesis Imaging Routine Encounter for screening mammogram for breast cancer Ordered: 03/05/2024 [facility] [employer] Comment on above: Ordered: 03/05/2024 SENDOUT TEST MISCELLANEOUS [facility] SENDOUT TEST MISCELLANEOUS [facility] Lab Routine Screening for malignant neoplasm of cervix Ordered: 03/05/2024 [facility] [employer] Work Phone: Comment on above: Ordered: 03/05/2024 WN-TXJRV-Gawhef 310 IVF Work Phone: NEGATED: Highlighted row has been ruled out! Planned Goals not documented IR-WPBLS-Qjieyn 310 IVF Work Phone: Immunizations Immunization Date Immunization Notes Care Provider So thurman 01-29-2024 influenza virus vacc ine, unspecified formulation Kelsey Gray PhD Work Phone: [facility] Work Phone: 01-28-2024 influenza virus vacc ine, unspecified formulation Tess Saxena DO Work Phone: [facility] 02-18-2023 influenza virus vacc ine, unspecified formulation Kelsey Gray PhD Work Phone: [facility] Work Phone: 04-26-2021 pneumococcal polysaccharide vaccine, 23 valent Aquiles Escobedo Other [facility] 04-24-2021 Pneumococcal polysaccharide vaccine, 23 valent Aquiles Escobedo Work Phone: OT-Zwnzqanbxo-Nifkc tim 2100 DO Work Phone: 06-29-2020 COVID-19 mRNA, Comir kristian (Pfizer) [facility] 06-09-2020 COVID-19 mRNA, Comir kristian (Pfizer) [facility] 03-10-2020 tetanus toxoid, redu rachel diphtheria toxoid, and acellular pertussis vaccine, adsorbed; Translations: [Tdap (Adacel)] Luana Godinez XM-ZTAZL-Vvqoje 310 IVF Work Phone: Comment on above: Series: Payers Date Payer Category Payer Self-pay [id number] 2022 [facility] [id number] 2022 [employer] Ramone Wagoner ld Managed Care [facility] Member Subscriber Plan / Payer (Effective 2022-Present) Name: Wild Calvo Member ID: [id number] Relation to Subscriber: Self Name: Wild Calvo Subscriber ID: [id number] Payer ID: [id number] (NAIC) Type: Not on file Address: [address] [id number] 2022 Unknown 2022 Unknown [id number] 2019 Unknown [id number] 1978 Unknown [id number] 840.1.245379.3.579.2. 593 1978 Unknown [id number] 2.840.1.787160.3.579.2. 593 1978 Unknown [id number] 840.1.648645.3.579.2. 593 1978 Unknown [id number] .840.1.511238.3.579.2. 593 1978 Unknown [id number] .840.1.977559.3.579.2. 593 1978 Unknown [id number] .840.1.397675.3.579.2. 356 1978 Unknown [id number] 2.16840.1.634808.3.579.2. 356 1978 Unknown [id number] 05.16.840.1.428368.3.579.2. 356 1978 Unknown [id number] 2..840.1.570025.3.579.2. 356 1978 Unknown [id number] 2..840.1.664463.3.579.2. 356 1978 Unknown [id number] 2.840.1.985077.3.579.2. 356 1978 Unknown [id number] 2..840.1.120570.3.579.2. 356 1978 Unknown [id number] 840.1.201285.3.579.2. 356 1978 Unknown [id number] 2.840.1.022947.3.579.2. 356 1978 Unknown [id number] 840.1.540157.3.579.2. 356 1978 Unknown [id number] 2.840.1.013662.3.579.2. 196 1978 Unknown [id number] 840.1.861575.3.579.2. 196 1978 Unknown [id number] 840.1.627507.3.579.2. 196 1978 Unknown [id number] 840.1.886978.3.579.2. 1244 1978 Unknown [id number] 840.1.269668.3.579.2. 1244 1978 Unknown [id number] 840.1.308037.3.579.2. 1244 1978 Unknown [id number] 840.1.779987.3.579.2. 1244 1978 Unknown [id number] 2840.1.642742.3.579.2. 1244 1978 Unknown [id number] 840.1.932508.3.579.2. 1245 1978 Unknown [id number] .840.1.802308.3.579.2. 1244 1978 Unknown [id number] 2.840.1.416472.3.579.2. 1243 1978 Unknown [id number] 840.1.995296.3.579.2. 1243 1978 Unknown [id number] .840.1.730005.3.579.2. 1243 1978 Unknown [id number] 840.1.142640.3.579.2. 1243 1978 Unknown [id number] 840.1.128960.3.579.2. 1243 1978 Unknown [id number] 840.1.190847.3.579.2. 1243 1978 Unknown [id number] 840.1.969751.3.579.2. 1243 1978 Unknown [id number] 840.1.167380.3.579.2. 1243 Unknown [id number] Unknown [id number] 840.1.627780.3.579.2. 243 Unknown [id number] 840.1.301607.3.579.2. 243 Unknown [id number] 840.1.794248.3.579.2. 243 Unknown [id number] 840.1.812462.3.579.2. 243 Unknown [id number] 840.1.972057.3.579.2. 531 Unknown [id number] 2840.1.996213.3.579.2. 531 Unknown [id number] 840.1.146033.3.579.2. 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1980 Sex Assigned At Female [facility] Start: 07-23-2017 End: 10-09-2022 Tobacco smoking status NHIS Never smoked tobacco (finding) [facility] Start: 03-04-2024 Sex Assigned At [employer] Other Tobacco smoking status NCIS Tobacco smoking consumption unknown [facility] Work Phone: Start: 1980 Sex assigned at Not on file [facility] Work Phone: Start: 07-04-2023 End: 08-09-2024 Exposure to SARS-CoV-2 (event) Not sure [facility] Start: 10-09-2022 Tobacco use and exposure Smokeless tobacco non-user [facility] Start: 03-04-2024 End: 03-05-2024 Alcoholic beverage intake Current drinker of alcohol (finding) [facility] Start: 02-25-2023 Alcohol Comment Caffeine intak e: 1-2 cups per day coffee, soda/pop [facility] Healthcare Start: 02-22-2022 Sex Female [facility] NEGATED: Highlighted row - Never smoker [facility] 206 Work Phone: Medical Equipment Procedure Code Equipment Code Equipment Original Text Equipment Identifier Dates Iconix Speed Sims 2.3 Mm 2 Strands 2.0mm Xbraid Tt Suture Tape Case [id number] Start: 06-11-2019 Comment on above: Description: Convert ed from [facility]. Please see archived information for full log information. Reel Stt 4.5 Mm Sims Case [id number] Start: 06-11-2019 Comment on above: Description: Convert ed from [facility]. Please see archived information for full log information. Iconix Speed Sims 2.3 Mm 2 Strands 2.0 Mm Xbraid Tt Suture Tape Case [id number] Start: 06-11-2019 Comment on above: Description: Convert ed from [facility]. Please see archived information for full log information. Functional Status Date Assessment Result Facility NEGATED: Highlighted row Functional performance Functional status health issues are not documented [facility] Work Phone: Mental Status Date Assessment Result Facility NEGATED: Highlighted row Cognitive function [Interpretation] Cognitive status health issues are not documented Disease [facility] 206 Work Phone: Clinical Notes 11-29-2020 to 03-05-2024 Tess Saxena, - 03/05/2024 9:00 AM Nancy Mulligan MD - 09/22/2023 11:00 AM EDT Note Date & Type Note Facility 03-05-2024 History of Present illness Narrative Images from the original note were not included. Tess Saxena D.O. Obstetrics and Gynecology Patient: Wild Calvo : 1980 (44 y.o.) Yearly Wellness Exam Date: 03/05/2024 Reason for Visit - Chief Complaint Patient presents with Gynecologic Exam Denies concerns, Denies bowel/bladder/breast concerns. Pt stopped in September. Pt would like to discuss if she should wait 6 months before having mammogram. LMP 01/02/24. Pt has only had 2 periods since stopping . Pt did not have menses in January. Denies concerns of . Visit Vitals Smoking Status Never No Known Allergies History of Present Illness, Associated Treatments and Results - OB History Para Term AB Living 6 2 2 0 4 2 SAB IAB Ectopic Multiple Live Births 0 0 0 0 0 # Outcome Date GA Lbr Darian/2nd Weight Sex Type Anes PTL Lv 6 Term 08/19/22 7 lb 8 oz M Vag-Spont EPI 5 Term 05/06/20 6 lb 2 oz F Vag-Spont 4 AB 3 AB 2 AB 1 AB Obstetric Comments Pap smear 02/26/23 wnl Review of Systems - General: Chills denies. Allergy/Immunology: Rash Denies. ENT: Denies Difficulty swallowing. Endocrine: Denies Cold intolerance denies. Heat intolerance denied. Respiratory: Denies Chest pain denies. Shortness of breath denies. Breast: Denies Bloody nipple discharge denies. Breast lump denies. Cardiovascular: Denies Chest pain. Gastrointestinal: Abdominal pain denies. Blood in stool denies. Hematology: Easy bruising denies. Prolonged bleeding denies. Women Only: Breast lump denies. Vaginal bleeding between periods is denied. Vaginal discharge/itching denied. Genitourinary: Blood in urine denies. Painful urination denies. Incontinence denies. Skin: Hair changes. Neurologic: Seizures denied. Stroke denies. Psychiatric: Anxiety denies. Depressed mood denies. Medication Documentation Review Audit Reviewed by Taylor Soto MA (Waiter And Cashier) on 03/05/24 at 0905 Medication Order Taking? Sig Documenting Provider Last Dose Status Discontinued 03/05/24904 Famotidine (PEPCID PO) [id number] Pepcid Tess Saxena, Active levothyroxine (Synthroid, Levoxyl) 100 MCG tablet [id number] TAKE 1 TABLET BY MOUTH EVERY DAY IN THE MORNING ON AN EMPTY STOMACH Tess Saxena DO Active VIT-FE CBN-FE SULF-FA PO [id number] Take by mouth. Historical Provider, Active sertraline (Zoloft) 100 MG tablet [id number] Take by mouth. Historical Provider, Active tiZANidine (Zanaflex) 4 MG tablet [id number] TAKE 1/2 - 1 TABLET BY MOUTH AT BEDTIME NEEDED FOR NECK PAIN Tess Saxena DO Active Past Medical History: Diagnosis Date Bacterial vaginosis Crohn disease ([facility]) Depression ([facility]) Female infertility History of medical problems immuno compromised Gets IV IG monthly Hypertension ([facility]) Hypothyroid ([facility]) Miscarriage Ovarian cyst Varicella zoster Past Surgical History: Procedure Laterality Date ABDOMINAL SURGERY DILATION AND CURETTAGE OF UTERUS OTHER SURGICAL HISTORY Left 05/2018 Accillies repair VAGINAL DELIVERY VAGINAL DELIVERY 08/19/2022 Family History Problem Relation Name Age of Onset Coronary artery disease Mother Zayra Wetoskey Transient ischemic attack Mother Zayra Wetoskey Stroke Mother Zayra Wetoskey Heart disease Mother Zayra Wetoskey Hyperlipidemia Mother Zayra Wetoskey Hypertension Mother Zayra Wetoskey Migraines Mother Zayra Wetoskey Kidney disease Father Ousmane Wetoskey Thyroid disease Father Ousmane Wetoskey Heart disease Father Ousmane Calvo Hypothyroidism Father Ousmane Wetoskey Seizures Brother Annie Calvo Breast cancer Paternal Grandfather Juan M Lewiskey Cancer Mother's Sister Scarlet Gaston Breast cancer Father's Sister Eder Palafox Asthma Daughter Allergies Daughter peanuts and eggs Physical Exam - General appearance, mentation, extraocular movements, facial strength and movement, hearing, upper and lower extremity strength and tone, sensation to gross testing, coordination, and gait are normal or at baseline unless noted below. General Examination: GENERAL APPEARANCE: alert oriented well developed, well nourished. HEAD: normocephalic atraumatic. EYES: sclera anicteric. EARS: no obvious hearing deficit. SKIN: warm and dry. HEART: regular rate and rhythm. LUNGS: clear to auscultation bilaterally. CHEST: axillary nodes grossly normal. BREASTS: no masses palpable bilaterally, normal nipples bilaterally. ABDOMEN: soft, nontender, nondistended, no masses palpable. BACK: no costovertebral angle tenderness, no obvious scoliosis/kyphosis. FEMALE GENITOURINARY: normal vaginal mucosa, cervix absent of lesions, nontender, uterus AV, mobile, ovaries nonpalpable and nontender. EXTREMITIES: no edema. NEUROLOGIC: alert and oriented. PSYCH: cooperative with exam. Diagnoses and all orders for this visit: Encounter for gynecological examination without abnormal finding Screening for malignant neoplasm of cervix - SENDOUT TEST MISCELLANEOUS [facility] Encounter for screening mammogram for breast cancer - Bilateral screening mammogram with tomosynthesis Pap, pelvic and breast exam completed. Findings of today's exam discussed with the patient. Continue MSBE. Ca/Vit D recommendations reviewed with the patient. The patient is to contact the office with any changes to her gynecological condition. The patient is to return in 1 year or as needed ICD-10-CM 1. Encounter for gynecological examination without abnormal finding Z01.419 2. Screening for malignant neoplasm of cervix Z12.4 3. Encounter for screening mammogram for breast cancer Z12.31 documented in this encounter [facility] 09-22-2023 History of Present illness Narrative 43-year-old female here for second opinion regarding lumbar spine surgery. She was diagnosed with spondylolisthesis and was recommended to have surgery, particularly a lumbar fusion at L5-S1. She has a history of chronic lower back pain, 1 or 2 flareups a year that will last for about a month at a time. Typically they resolve with care center manager. This time her symptoms began in March but they have not resolved. 90% of her problem is pain in her lower back, she gets some radiation into the buttock and hips as well. There is some sciatica, this is 10% or less of her overall trouble. Recently she has been treated with a couple sessions of physical therapy and had an epidural injection a few weeks ago which did not help too much. She denies bowel or bladder incontinence. Medical history is otherwise significant for obesity. She does not smoke. On exam she is well-appearing and in no distress. She walks with a normal gait without assistive device. No focal neurologic deficits. Negative straight leg raise test. BMI 35.9. I reviewed x-rays and MRI of her lumbar spine. These demonstrate grade 2 isthmic spondylolisthesis at L5-S1 with moderate right-sided foraminal narrowing. There is no motion of the spondylolisthesis on flexion/extension x-rays. 43-year-old female with isthmic spondylolisthesis, primarily axial lower back pain, minor component of nerve pain. We discussed continued conservative care versus surgical treatment. I explained that the primary reason for having lumbar spine surgery is to improve the pain in her leg, and since this is only a minor component of her symptoms I do not think it is lovell to proceed with surgery. In any case her BMI is prohibitive of fusion surgery at this point, I explained the complication rates are too high and success rates are too low particularly with the need for an open lumbar fusion. Her disc space is very collapsed and I think it would be quite difficult to access this for interbody fusion using a minimally invasive approach alone. At this time I recommend she continue her physical therapy program. She should begin an aerobic exercise conditioning program as well, low impact exercise 30 minutes a day 3 to 4 days/week. She is also working on weight loss, goal for BMI should be less than 35 before proceeding with surgery. I will be happy to see her on an as-needed basis if she would like to consider surgery once these criteria are met. I reassured her that she is at little to no risk of catastrophic progression of her symptoms. She asked particularly about developing a foot drop, and I explained that this is more likely to develop with surgery then without surgery. She should walk on her heels at least once every week or so to make sure that she is not developing a foot drop. If that were to occur I would like to see her back in the office. *This note was dictated using speech recognition software and was not corrected for spelling or grammatical errors* Past Medical History: Diagnosis Date Acute tonsillitis, unspecified 05/06/2017 Acute tonsillitis Allergy status to unspecified drugs, medicaments and biological substances History of seasonal allergies Anxiety disorder, unspecified 06/21/2013 Anxiety and depression Candidiasis, unspecified Yeast infection Encounter for assisted reproductive fertility procedure cycle 02/11/2018 In vitro fertilization Encounter for screening for infections with a predominantly sexual mode of transmission 07/18/2021 Routine screening for STI (sexually transmitted infection) Other acute postprocedural pain 05/01/2015 Post-operative pain Other conditions influencing health status 05/06/2017 History of cough Other conditions influencing health status History of Personal history of other diseases of the digestive system 03/19/2017 History of Crohn's disease Personal history of other diseases of the female genital tract 02/09/2018 History of amenorrhea Personal history of other diseases of the female genital tract 04/18/2016 History of chronic endometritis Personal history of other diseases of the nervous system and sense organs 06/21/2013 History of migraine Supervision of with history of infertility, first trimester ([facility]) 01/16/2017 with history of infertility in first trimester No current outpatient medications on file. Social History Socioeconomic History Marital status: Single Spouse name: Not on file Number of children: Not on file Years of education: Not on file Highest education level: Not on file Occupational History Not on file Tobacco Use Smoking status: Not on file Smokeless tobacco: Not on file Substance and Sexual Activity Alcohol use: Not on file Drug use: Not on file Sexual activity: Not on file Other Topics Concern Not on file Social History Narrative Not on file Social Determinants of Health Financial Resource Strain: Not on file Food Insecurity: Not on file Transportation Needs: Not on file Physical Activity: Not on file Stress: Not on file Social Connections: Not on file Intimate Partner Violence: Not on file Housing Stability: Not on file Tino Mulligan MD Director, [facility] Spine [employer] Machine Setter Department of Orthopaedic Surgery [facility] [address] [place] [address] documented in this encounter [facility] Work Phone: 11-27-2022 Evaluation note Encounter Date Diagnosis Assessment [...] treatment Continue healthy diet, exercise, keep active [employer] Other 04-17-2022 History of Present illness Narrative* Patient is a 41 year old female who presents with history of infertility. * Patient of Dr. 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 * Verbal consent was requested and obtained from WILD CALVO on this date, 06/15/2021 01:30 PM , for a telehealth visit. * The patient is being seen today for a Follow Up Visit; patient desires another . Virtual visit via telehealth [id number] Work Phone: 1(343) 569-888001-25-2022 History of Present illness Narrative* Since last [...] Dr. Maldonado. 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 KI-Pbhrvhrfad-Ewzsfssz 4362 DO Work Phone: 1(306) 836-317409-01-2021 History of Present illness Narrative* WILD CALVO is a 41 year old female, new [...] intermittent diarrhea. 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 [id number]-Gbhwgkeb 6990 DO Work Phone: [phone] 515-741509-01-2021 History of Present illness Narrative* WILD CALVO is a 41 year old female, new [...] intermittent diarrhea. 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 [id number]-Heybjlyf 7378 DO Work Phone: 1([phone]) 494-285109-01-2021 History of Present illness Narrative* WILD CALVO is a 41 year old female, new [...] intermittent diarrhea. 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 ON-[facility]behnppoux[facility] [employer] DO Work Phone: Evaluation noteNo assessment information available [facility] Work Phone: Evaluation noteNo InformationNort [employer] Other Evaluation note* Diagnosis Recurrent major depressive disorder, in partial remission (CMS-HCC)- Primary documented in this encounter [facility] Work Phone: Evaluation note* Diagnosis Onset Date Resolution Status Crohn's disease acute GUSTABO (generalized anxiety disorder) acute Hypothyroid acute Major depression acute Nephrolithiasis acute Screening mammogram for breast cancer acute Wellness examination acute [facility] Work Phone: Evaluation note* Diagnosis Recurrent major depressive disorder, in partial remission (CMS-HCC)- Primary documented in this encounter [facility] Work Phone: Evaluation note* Diagnosis Encounter for gynecological examination without abnormal finding Screening for malignant neoplasm of cervix Screening for malignant neoplasm of the cervix Encounter for screening mammogram for breast cancer documented in this encounter [facility] HealthcareEvaluation note* Diagnosis Recurrent major depressive disorder, in partial remission (CMS-HCC)- Primary documented in this encounter [facility] Work Phone: Evaluation note* Diagnosis Chronic low back pain without sciatica, unspecified back pain laterality- Primary documented in this encounter [facility] Work Phone: Evaluation note* Diagnosis Recurrent major depressive disorder, in partial remission (CMS-HCC)- Primary documented in this encounter [facility] Work Phone: Evaluation note* Diagnosis Recurrent major depressive disorder, in partial remission (CMS-HCC)- Primary documented in this encounter [facility] Work Phone: Evaluation note* Diagnosis Recurrent major depressive disorder, in partial remission (CMS-HCC)- Primary documented in this encounter [facility] Work Phone: Evaluation note* Diagnosis Recurrent major depressive disorder, in partial remission- Primary documented in this encounter [facility] Work Phone: Evaluation note* Diagnosis Recurrent major depressive disorder, in partial remission- Primary documented in this encounter [facility] Work Phone: History general Narrative - Reported* Type Description Date Medical History Generalized anxiety disorder Medical History Major depressive disorder, recur rent, mild Medical History Crohn's disease of small intesti ne without complications Medical History Other specified hypothyroidism Surgical History laparoscopy Surgical History cholecystectomy Surgical History foot surgery Hospitalization History see above surgical histo ry [facility] ERN Other Summary Purpose Family History No Family [...] 3. Injection PRP Surgeon: Christopher Harris Resident/Fellow/Other Rn Call Center: Cruz Robles, PGY-3, Jayne Martin, PGY-1 Anesthesia: [...] 35 weeks gestation o f ; screenin Chief Complaint Wellness Reason for Visit Crohn's disease GUSTABO (generalized anxiety disorder) Hypothyroid Major depression Nephrolithiasis Screening mammogram for breast cancer Wellness examination Additional Source Comments INFORMATION SOURCE (unrecogn ized section and content) DATE CREATED AUTHOR 03/09/2018 [facility] DATE CREATED AUTHOR AUTHOR'S ORGANIZ ATION 07/06/2019 [facility] DATE CREATED AUTHOR AUTHOR'S ORGANIZ ATION 10/17/[address] [facility] DATE CREATED AUTHOR AUTHOR'S ORGANIZ ATION 03/28/2020 [facility] DATE CREATED AUTHOR AUTHOR'S ORGANIZ ATION 01/01/2022 [employer] DATE CREATED AUTHOR AUTHOR'S ORGANIZ ATION 07/12/2022 [facility] DATE CREATED AUTHOR AUTHOR'S ORGANIZ ATION 09/06/2022 [facility] DATE CREATED AUTHOR AUTHOR'S ORGANIZ ATION 01/14/2023 [facility] DATE CREATED AUTHOR AUTHOR'S ORGANIZ ATION 09/17/2023 [facility] DATE CREATED AUTHOR AUTHOR'S ORGANIZ ATION 12/12/2023 [facility] DATE CREATED AUTHOR AUTHOR'S ORGANIZ ATION 11/07/2024 [facility] Ambulatory Goals (unrecognized section and content) Goals may be documented in a n alternate sectionGoals may be documented in an alternate sectionNo InformationNo InformationGoals may be documented in an alternate section Care Teams (unrecognized sec tion and content) Team Status: Inactive Member Role Status Dates Tess Saxena DO Attending Provider Active Senior Billing Consultant Relationship Specialty Start Date End Date Generic Provider, [place] [address] PCP - General Radiologic Technology Teacher 07/14/23 Team Status: Active Member Role Status Dates Aquiles Escobedo DO Primary Care Provider Active Team Status: Active Member Role Status Dates Aquiles Escobedo DO Primary Care Provide r, Attending Provider Active Start: November 26, 2023 Team Status: Inactive Member Role Status Dates Aquiles Escobedo DO Primary Care Provide r, Attending Provider Active Start: December 10, 2023 End: December 10, 2023 Senior Billing Consultant Relationship Specialty Start Date End Date Generic Provider, [place] [address] PCP - General Radiologic Technology Teacher 07/14/23 Senior Billing Consultant Relationship Specialty Start Date End Date Aquiles Escobedo MD [address] [place] [id number] PCP - General Internal Medicine 10/09/22 Senior Billing Consultant Relationship Specialty Start Date End Date Aquiles Escobedo MD [address] [place] [id number] PCP - General Internal Medicine 10/09/22 Senior Billing Consultant Relationship Specialty Start Date End Date Generic Provider, No [place] [address] PCP - General Radiologic Technology Teacher 07/14/23 Senior Billing Consultant Relationship Specialty Start Date End Date Generic Provider, No [place] [address] PCP - General Radiologic Technology Teacher 07/14/23 Senior Billing Consultant Relationship Specialty Start Date End Date Generic Provider, [place] [address] PCP - General Radiologic Technology Teacher 07/14/23 Senior Billing Consultant Relationship Specialty Start Date End Date Generic Provider, No [place] [address] PCP - General Radiologic Technology Teacher 07/14/23 Senior Billing Consultant Relationship Specialty Start Date End Date Generic Provider, No [place] [address] PCP - General Radiologic Technology Teacher 07/14/23 Senior Billing Consultant Relationship Specialty Start Date End Date Generic Provider, [place] [address] PCP - General Radiologic Technology Teacher 07/14/23 Senior Billing Consultant Relationship Specialty Start Date End Date Generic Provider, No [place] [address] PCP - General Radiologic Technology Teacher 07/14/23 Senior Billing Consultant Relationship Specialty Start Date End Date Generic Provider, No [place] [address] PCP - General Radiologic Technology Teacher 07/14/23 Senior Billing Consultant Relationship Specialty Start Date End Date Generic Provider, [place] [address] PCP - General Radiologic Technology Teacher 07/14/23 REASON FOR VISIT (unrecogniz ed section and content) Reason Comments Gynecologic Exam Denies concerns, Den ies bowel/bladder/breast concerns. Pt stopped in September. Pt would like to discuss if she should wait 6 months before having mammogram. LMP 01/02/24. Pt has only had 2 periods since stopping . Pt did not have menses in January. Denies concerns of . FOR RECORDS PERTAINING TO PATIENTS WHO ARE [...] BE BASED ON THE PRIMARY CLINICAL RECORDS. [employer] provides no warranty or guarantee of the accuracy or completeness of information in this document.
[2024-12-15 09:02] LABS: Thyroid Stimulating Hormone 4.973 uIU/mL (0.358-3.740)
== END 2024-12-15 07:26 | disposition home or self-care (01) ==
LOC: LAB 07:25
PROVIDERS: PCP Internal Medicine; Visit Provider Internal Medicine
DX: Z00.00 Encounter for general adult medical examination without abnormal findings (principal); E03.8 Other specified hypothyroidism; E06.3 Autoimmune thyroiditis
CPT/HCPCS: 36415; 84443

== ENCOUNTER 2025-02-08 16:53 | Outpatient (OUT) | payer BC, SELFPAY ==
--- OUTSIDE RECORDS SUMMARY | 2025-01-28 10:00 | XMS_ITS | Encounter Summary ---
Author Organization [facility] Address [address] [place] [address] Phone Care Team Providers Care Philosophy Instructor Name Role Phone Generic Provider, No Assigned Pcp MD Primary Car e Provider Unavailable Encounter Details DateTypeDepartmentCare Team (Latest Contact Info)Gvgohapbxay55/31/2025 11:00 AM EDTTelemedicine [facility] [address] [place] [address] [place] [address] [address] Department of INSTALLATION DRAFTER-[place] [address] Recurrent major depressive disorder, in partial remission (Primary Dx) Discharge Disposition: Home Social History Tobacco UseTypesPacks/DayYears UsedDateSmoking Tobacco: Never Assessed CommentsUnknownSex and Gender InformationValueDate RecordedSex Assigned at Not on fileLegal TbxYnavqj36/25/2022 11:14 PM ESTGender IdentityNot on file Sexual OrientationNot on filedocumented as of this encounter Functional Status * Communicable Disease ScreeningQuestionAnswerDate of AssessmentAuthorDo you have any of the following new or worsening symptoms?None of these01/28/2025 10:35 AM Francoise Ardon documented as of this encounter Plan of Treatment DateTypeDepartmentCare Team (Latest Contact Info)Uvrxhsiukne73/19/2025 11:00 AM ESTTelemedicine [facility] [address] [place] [address] [place] [address] [address] Department of INSTALLATION DRAFTER[place] [address] 04/25/2025 1:00 PM ESTTelemedicine [facility] [address] [place] [phone] [place] [address] [address] [facility] Department of INSTALLATION DRAFTER[place] [address] 05/23/2025 1:00 PM ESTTelemedicine [facility] [address] [place] [phone] [place] [address] [place] [facility] Department of INSTALLATION DRAF[employer] [address] 06/20/2025 1:00 PM EDTTelemedicine [facility] [address] [place] [phone] [place] [address] [place] [facility] Department of INSTALLATION DRAF[facility] [address] documented as of this encounter Visit Diagnoses Diagnosis Recurrent major depressive disorder, in partial remission- Primary documented in this encounter Care Teams Team MemberRelationshipSpecialtyStart DateEnd Date Generic Provider, No Assigned Pcp, [place] [address] PCP - GeneralGeneral Practice07/14/23documented as of this encounter
--- OUTSIDE RECORDS SUMMARY | 2025-02-08 16:56 | XMS_ITS | Clinical Summary ---
Author Organization [facility] Address [address] [place] [address] Care Team Providers Care Heatset Winder Operator Name Role Phone Aquiles Francisco Primary Care Provider [phone] Allergies No known active allergies Medications MedicationSigDispense QuantityRefillsLast FilledStart DateEnd DateStatus levothyroxine (Synthroid, Levoxyl) 100 MCG tablet Indications:30 weeks gestation of ([facility])TAKE 1 TABLET BY MOUTH EVERY DAY IN THE MORNING ON AN EMPTY STOMACH 90 tablet 3Active sertraline (Zoloft) 100 MG tablet Take by mouth.Active VIT-FE CBN-FE SULF-FA PO Take by mouth.Active Famotidine (PEPCID PO) PepcidActive tiZANidine (Zanaflex) 4 MG tablet TAKE 1/2 - 1 TABLET BY MOUTH AT BEDTIME NEEDED FOR NECK PAINActive Family History Medical HistoryRelationNameCommentsSeizuresBrotherLauren WetoskeyAllergies Daughterpeanuts and eggsAsthmaDaughterHeart diseaseFatherLeroy Wetoskey HypothyroidismFatherLeroy WetoskeyKidney diseaseFatherLeroy WetoskeyThyroid diseaseFatherLeroy WetoskeyBreast cancerFather's SisterChris MylanderCoronary artery diseaseMotherMarie WetoskeyHeart diseaseMotherMarie Wetoskey HyperlipidemiaMotherMarie WetoskeyHypertensionMotherMarie WetoskeyMigraines MotherMarie WetoskeyStrokeMotherMarie WetoskeyTransient ischemic attackMother Zayra WetoskeyCancerMother's SisterJudy GriffinBreast cancerPaternal Grandfather Mainard WetoskeyRelationNameStatusCommentsBrotherLauren WetoskeyDaughterAlive FatherLeroy WetoskeyAliveFather's SisterEder RoblanderMotherMarie WetoskeyAlive Mother's SisterScarlet GuzmaninPaternal GrandfatherMainard Wetoskey Social History Tobacco UseTypesPacks/DayYears UsedDateSmoking Tobacco: NeverSmokeless Tobacco: Never Tobacco Cessation:Counseling Given: Not Answered Alcohol UseStandard Drinks/WeekCommentsYes1 (1 standard drink = 0.6 oz pure alcohol)Caffeine intake: 1-2 cups per day coffee, soda/popComments UnknownSex and Gender InformationValueDate RecordedSex Assigned at BirthNot on fileLegal LyhBqzxfi27/15/2023 6:48 PM EDTGender IdentityNot on fileSexual OrientationNot on file Last Filed Vital Signs Vital SignReadingTime TakenCommentsBlood Cbcgrudl849/8612 9:09 AM EST Pulse--Temperature--Respiratory Rate--Oxygen Saturation--Inhaled Oxygen Concentration--Wxgiwn690 kg (235 lb)03/05/2024 9:09 AM BONDtanxo968.2 cm (5' 1.5 )02/26/2023 3:41 PM ESTBody Mass Index43.6802/26/2023 3:41 PM EST Plan of Treatment DateTypeDepartmentCare Team (Latest Contact Info)Mznvcmmgovr33/09/2026 11:45 AM ESTOffice Visit [facility] [address] [place] [address] Tess Saxena DO [address] [place] [address] Health MaintenanceDue DateLast DoneCommentsCT Btshitxcunps1978FIT-DNA 1978FIT1978FOBT1978 4478Lhelqutfpwpmt1978Pap Smear10/04/2024 2COVID-19 Vaccine (2024- season)5006/13/2021, 06/29/2020, 06/09/2020Influenza Vaccine (#1)513788Wsgzkmbhp32/08/2026 10/05/2024, 07/28/2018, 07/28/20189991Krguobegnfn48/02/97564204/01/2017, 04/01/2017 Colorectal Cancer Mdwlufovh54/02/2028Cervical Cancer Vnfwdfcjc66/29/2028 HPV/Jmnwcd278104/28/2022, 2022neumococcal Vaccine: Pediatrics (0 to 5 Years) and At-Risk Patients (6 to 64 Years)Aged OutNo longer eligible based on patient's age to complete this topic Procedures Procedure NamePriorityDate/TimeAssociated DiagnosisCommentsMAMMOGRAM*Routine 10/05/2024 3:54 PM EDTTHINPREP IMAGING PAP W/REFL HPV MRNA E6/V9Nhbfymk 02/26/2023 4:11 PM EST Screening for malignant neoplasm of cervix from Last 3 Months or Most Recently Relevant to Health Maintenance Results * MAMMOGRAM* (10/05/2024 3:54 PM EDT)Anatomical RegionLateralityModality Radiographic Imaging Narrative Authorizing ProviderResult TypeResult StatusKatnicanor Saxena [facility] XR PROCEDURESFinal Result * THINPREP IMAGING PAP W/REFL HPV MRNA E6/E7 (02/26/2023 4:11 PM EST)Component ValueRef RangeTest MethodAnalysis TimePerformed AtPathologist Signature CLINICAL INFORMATIONQUESTComment:None givenLMPQUESTComment:MENSES BREASTFEEDINGPREV. PAPQUESTComment:NONE GIVENPREV. BXQUESTComment:NONE GIVEN SOURCEQUESTComment:CervixSTATEMENT OF ADEQUACYQUESTComment: Satisfactory for evaluation. Endocervical/transformation zone component present. INTERPRETATION/RESULTQUESTComment: Cytology Results: Negative for intraepithelial lesion or malignancy. COMMENTQUESTComment: This Pap test has been evaluated with computer assisted technology. CYTOTECHNOLOGISTQUESTComment: BH, CT(ASCP) CT screening location: [address] [place], [address] [place] [address], [place] [address]. (ALWAYS MESSAGE)QUESTComment: EXPLANATORY NOTE: The Pap is a screening test for cervical cancer. It is not a diagnostic test and is subject to false negative and false positive results. It is most reliable when a satisfactory sample, regularly obtained, is submitted with relevant clinical findings and history, and when the Pap result is evaluated along with historic and current clinical information. Specimen (Source)Anatomical Location / LateralityCollection Method / Volume Collection TimeReceived TimeVaginal Fluid02/26/2023 4:11 PM EST02/27/2023 3:12 AM EST Narrative Resulting Agency Comment Performing Organization Information ?Site ID: [id number] ?Name: [facility] ?Address: [address] [place] [address], [address] [place] [phone] ?Director: John Skinner MD Authorizing ProviderResult TypeResult StatusKatnicanor PONCE CYTOLOGY ORDERABLESFinal ResultPerforming OrganizationAddressCity/State/ZIP CodePhone Number [facility] from Last 3 Months or Most Recently Relevant to Health [place] [address] Care Teams Team MemberRelationshipSpecialtyStart DateEnd Date Aquiles Francisco DO PCP - GeneralInternal Medicine10/09/22
--- OUTSIDE RECORDS SUMMARY | 2025-02-08 16:56 | XMS_ITS | Clinical Summary ---
Author Organization [facility] Address [address] 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 Name Role Phone Generic Provider, No Assigned Pcp MD Primary Car e Provider Unavailable Active Problems ProblemNoted DateDiagnosed DateMajor zobhkkfzqj14/22/2023 Encounters DateTypeDepartmentCare BtihRyonrpgelme39/31/2025 11:00 AM EDTTelemedicine [place] [id number] [address] [place] [phone] Kelsey Flowers, PhD Recurrent major depressive disorder, in partial remission (Primary Dx) Discharge Disposition: Home01/28/20251372Xojsze26/26/2025 10:00 AM EDTTelemedicine [facility] [address] [place] [address] Kelsey Flowers, PhD Recurrent major depressive disorder, in partial remission (Primary Dx) Discharge Disposition: Home12/24/2024Travelfrom Last 3 Months Social History Tobacco UseTypesPacks/DayYears UsedDateSmoking Tobacco: Never Assessed CommentsUnknownSex and Gender InformationValueDate RecordedSex Assigned at Not on fileLegal EppPjfzjg82/25/2022 11:14 PM ESTGender IdentityNot on file Sexual OrientationNot on file Last Filed Vital Signs Vital SignReadingTime TakenCommentsBlood Hirotpnz894/8406 11:12 AM EDT Jznkz0611 11:12 AM WPZNwbgexmhgxh40.4 ??C (97.5 ??F)06/16/2020 3:55 PM EDTRespiratory Qwxm1878 10:13 AM EDTOxygen Vhjkpelakr55%04/24/2021 3:29 PM ESTInhaled Oxygen Concentration--Bzmyxf50 kg (216 lb)09/22/2023 11:20 AM EDT Ohkapk625.5 cm (5' 2 )09/22/2023 11:20 AM EDTBody Mass Index39.51009/22/2023 11:20 AM EDT Plan of Treatment DateTypeDepartmentCare Team (Latest Contact Info)Gwgzmuwlsjx84/19/2025 11:00 AM ESTTelemedicine [facility] [address] [place] [address] [place] [address] Department of [employer] [place] [address] 04/25/2025 1:00 PM ESTTelemedicine [facility] [address] [place] [phone] [place] [address] [address] Department of [employer] [address] 05/23/2025 1:00 PM ESTTelemedicine [facility] [address] [place] [address] [place] [address] [address] Department of [employer] [place] [address] 06/20/2025 1:00 PM EDTTelemedicine [facility] [address] [place] [phone] [place] [address] [address] Department of [employer] [place] [address] Health MaintenanceDue DateLast DoneCommentsBone Density Scan1978CT Fauzbudwmowm1978FIT-DNA (Cologuard)1978FIT1978Lipid Panel 1980 9390Irgthcujzzgyy1978TB Test1978Vitamin B-12104/15/1977COVID-19 Vaccine (#1)1983Hepatitis B Vaccines (1 of 3 - 19+ 3-dose series) 1997Zoster Vaccines (1 of 2)1997HPV/Venchu0402/13/1999Vitamin D25-[place] , 02/11/20185387Bplofsexo98Pneumococcal Vaccine: Pediatrics and At-Risk Adult Patients (2 of 2 - PCV)04/26/2022 04/26/2021TSH Level, 12/04/2021, 08/30/2021, Additional history existsDiabetes Lnswfxlhj89/05/2021, 05/06/2020, 05/04/2020, Additional history existsCervical Cancer Tytbchshg61/07/2025Pap Smear10/04/2024 10/04/2021, 10/04/2021, 07/29/2018Influenza Vaccine (#1), 01/28/2024, 02/18/2023Yearly Adult Mxggawlv50/08/2023, 02/26/2023, 3DTaP/Tdap/Td Vaccines (2 - Td or Tdap)/01/2020Colonoscopy , 04/01/2017Colorectal Cancer Qcjxsoahd92/28/2031Irritable Bowel HaittxfqFzmrcxchxufw92/02/2018, 04/01/2017MMR WeyibsrvZmydqnmrr40/08/2021 HIV MadvjalstYfndnfrab71/02/2022, 11/16/2019, 07/03/2018Hepatitis B Surface HbdgbjwrUutgwpyua33/02/2022, 11/16/2019, 07/03/2018, Additional history exists Hepatitis C QjdeeqjqiGmiyivkhe40/02/2022, 11/16/2019, 07/03/2018HIB VaccinesAged OutNo longer eligible based on patient's age to complete this topicHPV Vaccines Aged OutNo longer eligible based on patient's age to complete this topic Hepatitis A VaccinesAged OutNo longer eligible based on patient's age to complete this topicIPV VaccinesAged OutNo longer eligible based on patient's age to complete this topicMeningococcal VaccineAged OutNo longer eligible based on patient's age to complete this topicRotavirus VaccinesAged OutNo longer eligible based on patient's age to complete this topic Medical Devices ImplantedTypeAreaManufacturerDevice IdentifierShelf Expiration DateModel / Serial / LotIconix Speed Sunol 2.3 Mm 2 Strands 2.0mm Xbraid Tt Suture Tape Case [id number] Implanted:Qty: 1 on 06/11/2019 by Christopher Harris DPMImplantLeft: Heel ANAMARIA [id number] / / [id number]:Converted from Care Acute. Please see archived information for full log information.Reel Stt 4.5 Mm Sunol Case [id number] Implanted:Qty: 2 on 06/11/2019 by Christopher Harris DPMImplantLeft: Heel ANAMARIA [id number]/30/[id number] / / [id number]:Converted from Care Acute. Please see archived information for full log information.Iconix Speed Sunol 2.3 Mm 2 Strands 2.0 Mm Xbraid Tt Suture Tape Case [id number] Implanted:Qty: 3 on 06/11/2019 by Christopher Harris DPMImplanKenzieft: Heel ANAMARIA [id number] / / [id number]:Converted from Care Acute. Please see archived information for full log information. Procedures Procedure NamePriorityDate/TimeAssociated DiagnosisCommentsTSH WITH REFLEX TO FREE T4 IF YMUEATYCWlqikwp58/30/2022 8:00 AM EDT CONVERTED VALUE ENGINEER NIEJQSWORhcctor43/07/2022 12:11 PM EDT HEPATITIS B SURFACE NKMEBKGUhfiqxk37/02/2022 10:01 AM EDT HEMOGLOBIN Q2PVbisosh97/02/2022 10:01 AM EDT HEPATITIS C MLQVVGMUAyolgnp26/02/2022 10:01 AM EDT HIV 1/2 ANTIGEN/ANTIBODY SCREEN WIH REFLEX TO UIBZQAWSKKFUVqokwod26/02/2022 10:01 AM EDT DIGITAL MAMM WVMYLLJJYDjbphrh81/30/2019 1:40 PM EDT Encounter for screening mammogram for malignant neoplasm of breast VITAMIN D 25-HYDROXY,ZGGXMZtvvsit15/05/2019 11:42 AM EDT JYUIACMJHQIFdgvlfl75/02/2018 9:41 AM EST OCKTdorfzt12/02/2018 9:10 AM EST from Last 3 Months or Most Recently Relevant to Health Maintenance Results * TSH with reflex to Free T4 if abnormal (12/28/2021 8:00 AM EDT)ComponentValue Ref RangeTest MethodAnalysis TimePerformed AtPathologist SignatureTSH3.470.44 - 3.98 [facility] LABComment: TSH testing is performed using different testing methodology at [facility] than at other [facility]. Direct result comparisons should only be made within the same method. Specimen (Source)Anatomical Location / LateralityCollection Method / Volume Collection TimeReceived Time12/28/2021 8:00 AM EDT12/28/2021 10:28 AM EDT Narrative Authorizing ProviderResult TypeResult StatusRachebonita BOSTON BLOOD ORDERABLESFinal ResultPerforming OrganizationAddressCity/State/ZIP CodePhone Number FORMERLY NAMED [facility] [address] [phone] * CONVERTED VALUE ENGINEER CYTOLOGY (10/04/2021 12:11 PM EDT)ComponentValueRef RangeTest MethodAnalysis TimePerformed AtPathologist SignaturePathology Report ? Date of Procedure: ??10/04/2021 ? Pathologist: [facility], Cytology Date Reported: 10/19/2021 Date Received: ??10/04/2021 Submitting Physician: CARLEY STAPLES MD ? FINAL CYTOLOGICAL INTERPRETATION A. ??THINPREP PAP CERVICAL: ? Specimen adequacy: ? SATISFACTORY FOR EVALUATION. ? Quality Indicator: Endocervical/transformation zone component is present. ? General Categorization: ? NEGATIVE FOR INTRAEPITHELIAL LESION OR MALIGNANCY. ? HIGH RISK HPV TEST RESULT: ? HPV GENOTYPE ??16 ?NEGATIVE ? HPV GENOTYPE ??18 ?NEGATIVE ? HPV GENOTYPE ??OTHER ? NEGATIVE ? Reference Range: Negative ? Slide(s) initially screened by a Linux Solaris Administrator at [facility], [address] [place] [phone] Testing for high-risk (HR) type of human papilloma virus (HPV) is performed by the Enrique lisa HPV Test. ??The lisa HPV Test is a qualitative polymerase chain reaction that amplifies DNA of HPV16, HPV18 and 12 other high-risk HPV types (31, 33, 35, 39, 45, 51, 52, 56, 58, 59, 66, and 68) associated with cervical cancer and its precursor lesions. ??A positive result indicates the presence of HPV DNA due to one or more of the 14 genotypes: 16, 18, 31, 33, 35, 39, 45, 51, 52, 56, 58, 59, 66, and 68. Negative results indicate HPV DNA concentrations are undetectable or below the pre-set threshold for detection. False negative results may be associated with unoptimized sampling. A negative HR HPV result does not exclude the possibility of future cytologic HSIL or underlying CIN2-3 or cancer. This test is approved for cervical specimens by ??the [place] Food and Drug Administration. Results of this test should be interpreted in conjunction with the patient's Pap test results. ??Please refer to [facility] current guidelines for the use of HPV DNA testing, result interpretation, and patient management. The performance of this test was verified by the Molecular Diagnostic Laboratory at [facility]. The lab is certified under the Clinical Laboratory Amendments of 1988 (CLIA 88) as qualified to perform high complexity clinical laboratory testing. Electronically Signed Out By [facility], Cytology//LSM By the signature on this report, the individual or group listed as making the Final Interpretation/Diagnosis certifies that they have reviewed this case. Diagnostic interpretation performed at [facility] [address] [place] [address] Educational Note: Cervical cytology is a screening procedure primarily for squamous cancers and precursors and has associated false-negative and false-positive results as evidenced by published data. ??Your patient's test should be interpreted in this context, together with patient's history and clinical findings. ??Regular sampling and follow-up of unexplained clinical signs and symptoms are recommended to minimize false negative results. Clinical History Date of Last Menstrual Period: ? 09/27/21 Other Clinical Conditions: COTEST HPV(Genotype) except for ASC-H, HSIL, Carcinoma - Include HPV Genotype testing ? Bloody Prep - Reprocessed with addition of Glacial Acetic Acid Clinical Diagnosis History: Pap smear for cervical cancer screening - (Z12.4) Source of Specimen A: THINPREP PAP CERVICAL [facility] Department of Pathology [address] [place] [address] [facility] COPATHCONVERTED FINAL DIAGNOSISA. ??THINPREP PAP CERVICAL: ? Specimen adequacy: ? SATISFACTORY FOR EVALUATION. ? Quality Indicator: Endocervical/transformation zone component is present. ? General Categorization: ? NEGATIVE FOR INTRAEPITHELIAL LESION OR MALIGNANCY. ? HIGH RISK HPV TEST RESULT: ? HPV GENOTYPE ??16 ?NEGATIVE ? HPV GENOTYPE ??18 ?NEGATIVE ? HPV GENOTYPE ??OTHER ? NEGATIVE ? Reference Range: Negative ? [facility] COPATHCONVERTED CLINICAL DIAGNOSIS-HISTORYClinical Diagnosis History: Pap smear for cervical cancer screening - (Z12.4)[facility] COPATHCONVERTED DIAGNOSIS COMMENTSlide(s) initially screened by a Linux Solaris Administrator at [facility], [address] [place] [phone] Testing for high-risk (HR) type of human papilloma virus (HPV) is performed by the Enrique lisa HPV Test. ??The lisa HPV Test is a qualitative polymerase chain reaction that amplifies DNA of HPV16, HPV18 and 12 other high-risk HPV types (31, 33, 35, 39, 45, 51, 52, 56, 58, 59, 66, and 68) associated with cervical cancer and its precursor lesions. ??A positive result indicates the presence of HPV DNA due to one or more of the 14 genotypes: 16, 18, 31, 33, 35, 39, 45, 51, 52, 56, 58, 59, 66, and 68. Negative results indicate HPV DNA concentrations are undetectable or below the pre-set threshold for detection. False negative results may be associated with unoptimized sampling. A negative HR HPV result does not exclude the possibility of future cytologic HSIL or underlying CIN2-3 or cancer. This test is approved for cervical specimens by ??the [place] Food and Drug Administration. Results of this test should be interpreted in conjunction with the patient's Pap test results. ??Please refer to [facility] current guidelines for the use of HPV DNA testing, result interpretation, and patient management. The performance of this test was verified by the Molecular Diagnostic Laboratory at [facility]. The lab is certified under the Clinical Laboratory Amendments of 1988 (CLIA 88) as qualified to perform high complexity clinical laboratory testing.[facility] COPATH CONVERTED FINAL REPORT PDF LINK TO COPY AND PASTE\copathshare\copath\PDF \[id number].pdfHAVEN BEH[facility]IORAL [facility] COPATHSpecimen (Source)Anatomical Location / LateralityCollection Method / VolumeCollection TimeReceived TimeTPP CERVICAL- Include Dquhtxai60/07/2022 12:11 PM EDT10/04/2021 12:58 PM EDT Narrative Authorizing ProviderResult TypeResult StatusCarley Staples [facility] CYTOLOGY ORDERABLESFinal ResultPerforming OrganizationAddressCity/State/[place] [address] * Hepatitis C Antibody (08/30/2021 10:01 AM EDT)ComponentValueRef RangeTest MethodAnalysis TimePerformed AtPathologist SignatureHepatitis C AbNONREACTIVE NONREACTIVEHAVEN BEHAVIORAL [facility]OS[facility] LABComment: Results from patients taking biotin supplements or receiving high-dose biotin therapy should be interpreted with caution due to possible interference with this test. Providers may contact their local laboratory for further information. Specimen (Source)Anatomical Location / LateralityCollection Method / Volume Collection TimeReceived Time08/30/2021 10:01 AM EDT08/30/2021 6:01 PM EDT Narrative Authorizing ProviderResult TypeResult StatusZari Oviedo APRN-[facility] BLOOD ORDERABLESFinal ResultPerforming OrganizationAddressCity/State/ZIP CodePhone Number [facility] [address] [place] [phone] * HIV 1/2 Antigen/Antibody Screen with Reflex to Confirmation (08/30/2021 10:01 AM EDT)ComponentValueRef RangeTest MethodAnalysis TimePerformed AtPathologist SignatureHIV 1 and 2 ScreenNONREACTIVENONREACTIVEHAVEN [facility] LABComment: HIV Ag/Ab screen is performed using the Siemens BiTaksillica HIV Ag/Ab Combo assay which detects the presence of HIV p24 antigen as well as antibodies to HIV-1 (Group M and O) and HIV-2. . No laboratory evidence of HIV infection. If acute HIV infection is suspected, consider testing for HIV RNA by PCR (viral load). Specimen (Source)Anatomical Location / LateralityCollection Method / Volume Collection TimeReceived Time08/30/2021 10:01 AM EDT08/30/2021 6:10 PM EDT Narrative Authorizing ProviderResult TypeResult StatusZari Oviedo [facility] BLOOD ORDERABLESFinal ResultPerforming OrganizationAddressty/State/ZIP CodePhone Number [facility] [address] [place], [place] [phone] * Hepatitis B Surface Antigen (08/30/2021 10:01 AM EDT)ComponentValueRef Range Test MethodAnalysis TimePerformed AtPathologist SignatureHepatitis B Surface AgNONREACTIVENONREACTIVEHAVEN [facility] LABComment: Biotin interference may cause falsely decreased results. Patients taking a Biotin dose of up to 5 mg/day should refrain from taking Biotin for 24 hours before sample collection. Providers may contact their local laboratory for further information. Specimen (Source)Anatomical Location / LateralityCollection Method / Volume Collection TimeReceived Time08/30/2021 10:01 AM EDT08/30/2021 6:01 PM EDT Narrative Authorizing ProviderResult TypeResult StatusZari Oviedo [facility] BLOOD ORDERABLESFinal ResultPerforming OrganizationAddressty/State/ZIP CodePhone Number [facility] [address] [place], [place] [phone] * Hemoglobin A1C (08/30/2021 10:01 AM EDT)ComponentValueRef RangeTest Method Analysis TimePerformed AtPathologist SignatureHemoglobin A1C4.9%[facility] Comment: ? Diagnosis of Diabetes-Adults Non-Diabetic: < or = 5.6% Increased risk for developing diabetes: 5.7-6.4% Diagnostic of diabetes: > or = 6.5% . ? Monitoring of Diabetes ?Age (y) ? Therapeutic Goal (%) Adults: >18 <7.0 Pediatrics: 13-18 <7.5 7-12 <8.0 ? 0- 6 ?7.5-8.5 [place] [employer]. Diabetes Care 33(S1), Mar 2009. Estimated Average Dujsyll58UN/DLHAVEN BEHAVIORAL HOS[facility] LABSpecimen (Source)Anatomical Location / LateralityCollection Method / VolumeCollection TimeReceived Time08/30/2021 10:01 AM EDT08/30/2021 6:04 PM EDT Narrative Authorizing ProviderResult TypeResult StatusZari Oviedo REPACK ROOM WORKER-[facility] BLOOD ORDERABLESFinal ResultPerforming OrganizationAddressCity/State/ZIP CodePhone Number [facility] [address] [place] [phone] * DIGITAL MAMM SCREENING (07/28/2018 1:40 PM EDT)Anatomical RegionLaterality ModalityMammographySpecimen (Source)Anatomical Location / LateralityCollection Method / VolumeCollection TimeReceived Time Narrative 08/04/2018 3:48 PM EDT Patient Name: WILD YI STUDY: DIGITAL MAMM SCREENING W/ FERNIE; 07/28/2018 1:40 pm ACCESSION NUMBER(S): [id number] ORDERING CLINICIAN: CLOTILDE ESPINOSA INDICATION: Screening. Family history breast cancer in paternal aunt and paternal grandfather. COMPARISON: Mammogram dated 05/08/2013 from outside institution has now become available for comparison. FINDINGS: 2D and tomosynthesis images were reviewed at 1 mm slice thickness. There are areas of scattered fibroglandular tissue. No suspicious masses or calcifications are identified. IMPRESSION: No mammographic evidence of malignancy. BI-RADS CATEGORY: Category: 1 - Negative. Recommendation: 1 Year Screening. For any future breast imaging appointments, please call [phone] ([phone]). Patient letter sent SOFNOR I personally reviewed the images/study and I agree with the findings as stated. This study was interpreted at [facility], [place], [place]. Procedure Note Maria Luisa Malhotra MD - 05/11/2022 Patient Name: WILD YI STUDY: DIGITAL MAMM SCREENING W/ FERNIE; 07/28/2018 1:40 pm ACCESSION NUMBER(S): [id number] ORDERING CLINICIAN: CLOTILDE ESPINOSA INDICATION: Screening. Family history breast cancer in paternal aunt and paternal grandfather. COMPARISON: Mammogram dated 05/08/2013 from outside institution has now become available for comparison. FINDINGS: 2D and tomosynthesis images were reviewed at 1 mm slice thickness. There are areas of scattered fibroglandular tissue. No suspicious masses or calcifications are identified. IMPRESSION: No mammographic evidence of malignancy. BI-RADS CATEGORY: Category: 1 - Negative. Recommendation: 1 Year Screening. For any future breast imaging appointments, please call [phone] ([phone]). Patient letter sent SOFNOR I personally reviewed the images/study and I agree with the findings as stated. This study was interpreted at [place], [place]. Authorizing ProviderResult TypeResult Freddy PABLOG BI PROCEDURESFinal Result * Vitamin D, Total (07/03/2018 11:42 AM EDT)ComponentValueRef RangeTest Method Analysis TimePerformed AtPathologist SignatureVitamin D, 25-Taigdph17xj/mL [facility] LABComment: . DEFICIENCY: < 20 NG/ML INSUFFICIENCY: ?20-29 NG/ML OPTIMUM LEVEL: ?30-80 NG/ML POSSIBLE TOXICITY: > 80 NG/ML THIS ASSAY ACCURATELY QUANTIFIES THE SUM OF VITAMIN D3, 25-HYDROXY AND VIT D2,25-HYDROXY. Specimen (Source)Anatomical Location / LateralityCollection Method / Volume Collection TimeReceived Time07/03/2018 11:42 AM EDT07/03/2018 3:36 PM EDT Narrative Authorizing ProviderResult TypeResult Freddy BOSTON BLOOD ORDERABLESFinal ResultPerforming OrganizationAddressCity/State/ZIP CodePhone Number [facility] * Colonoscopy (04/01/2017 9:41 AM EST)Anatomical RegionLateralityModality EndoscopySpecimen (Source)Anatomical Location / LateralityCollection Method / VolumeCollection TimeReceived Time04/01/2017 9:41 AM EST Narrative 04/16/2022 3:51 PM EST Patient Name: Wild Yi Procedure Date: 04/01/2017 9:41 AM Date of : 1980 Site: [facility] Ethnicity: or Race: White Attending MD: Kenn Cochran MD, [id number] Procedure: ? Colonoscopy Indications: ? Disease activity assessment of Crohn's disease of the ? small bowel and colon Comorbidities Patient with >10 year h/o of Crohn's (Smal bowel and colon) currently ? not on any IBD medications. Patient Profile: ? This is a 37 year old female. Refer to note in patient ? chart for documentation of history and physical. Providers: ? Kenn Cochran MD (Doctor) Referring MD: ?Aquiles Francisco Provider Care Team: ?Lubna Walker NP Medicines: ? Monitored Anesthesia Care Complications: ? No immediate complications. Procedure: ? Pre-Anesthesia Assessment: ? - Prior to the procedure, a History and Physical was ? performed, and patient medications and allergies were ? reviewed. The patient is competent. The risks and ? benefits of the procedure and the sedation options and ? risks were discussed with the patient. All questions ? were answered and informed consent was obtained. ? Patient identification and proposed procedure were ? verified by the physician and the nurse in the ? pre-procedure area in the procedure room. Mental ? Status Examination: alert and oriented. Airway ? Examination: Mallampati Class III (part of the uvula ? and soft palate visualized). Respiratory Examination: ? clear to auscultation. CV Examination: normal. ? Prophylactic Antibiotics: The patient does not require ? prophylactic antibiotics. Prior Anticoagulants: The ? patient has taken no previous anticoagulant or ? antiplatelet agents. ASA Grade Assessment: II - A ? patient with mild systemic disease. After reviewing ? the risks and benefits, the patient was deemed in ? satisfactory condition to undergo the procedure. The ? anesthesia plan was to use monitored anesthesia care ? (MAC). Immediately prior to administration of ? medications, the patient was re-assessed for adequacy ? to receive sedatives. The heart rate, respiratory ? rate, oxygen saturations, blood pressure, adequacy of ? pulmonary ventilation, and response to care were ? monitored throughout the procedure. The physical ? status of the patient was re-assessed after the ? procedure. ? After I obtained informed consent, the scope was ? passed under direct vision. Throughout the procedure, ? the patient's blood pressure, pulse, and oxygen ? saturations were monitored continuously. The ? Colonoscope was introduced through the anus and ? advanced to the terminal ileum, with identification of ? the appendiceal orifice and IC valve. The colonoscopy ? was performed without difficulty. The patient ? tolerated the procedure well. The quality of the bowel ? preparation was evaluated using the BBPS (Calcium Bowel ? Preparation Scale) with scores of: Right Colon = 2 ? (minor amount of residual staining, small fragments of ? stool and/or opaque liquid, but mucosa seen well), ? Transverse Colon = 2 (minor amount of residual ? staining, small fragments of stool and/or opaque ? liquid, but mucosa seen well) and Left Colon = 2 ? (minor amount of residual staining, small fragments of ? stool and/or opaque liquid, but mucosa seen well). The ? total BBPS score equals 6. The terminal ileum, ? ileocecal valve, appendiceal orifice, and rectum were ? photographed. Findings: ? The perianal and digital rectal examinations were normal. ? The terminal ileum appeared normal. Biopsies were taken with a cold ? forceps for histology. The specimen was placed in Jar C. ? External hemorrhoids were found during retroflexion. The hemorrhoids ? were small. ? There is no endoscopic evidence of inflammation in the entire colon. ? Biopsies were taken with a cold forceps for histology from right colon, ? transverse colon, left colon and the rectum. The specimen was placed in ? Jar D-G. ? The exam was otherwise without abnormality on direct and retroflexion ? views. Moderate Sedation: ? MAC case Estimated Blood Loss: ? Estimated blood loss was minimal. Impression: ?- The examined portion of the ileum was normal. ? Biopsied. ? - External hemorrhoids. ? - The examination was otherwise normal on direct and ? retroflexion views. Recommendation: ?- Patient has a contact number available for ? emergencies. The signs and symptoms of potential ? delayed complications were discussed with the patient. ? Return to normal activities tomorrow. Written ? discharge instructions were provided to the patient. ? - Resume previous diet. ? - Continue present medications. ? - Await pathology results. ? - Repeat colonoscopy in 3 years to assess disease ? activity. ? - Return to GI clinic as previously scheduled. Lubna Jalloh ? TANGELA Walker Procedure Code(s): ? --- Professional --- ? 09976, Colonoscopy, flexible; with biopsy, single or ? multiple Diagnosis Code(s): ? --- Professional --- ? K64.4, Residual hemorrhoidal skin tags ? K50.80, Crohn's disease of both small and large ? intestine without complications CPT copyright 2021 [employer]. All rights reserved. The codes documented in this report are preliminary and upon assistant manager retail review may be revised to meet current compliance requirements. Attending Participation: ? I personally performed the entire procedure. Kenn Cochran MD 04/01/2017 10:12:43 AM Number of Addenda: 0 Note Initiated On: 04/01/2017 9:41 AM Scope Withdrawal Time 0 hours 8 minutes 51 seconds Total Procedure Duration Time 0 hours 18 minutes 48 seconds Procedure Note Kenn Cochran MD - 10/06/2024 Patient Name: Wild Yi Procedure Date: 04/01/2017 9:41 AM Date of : 1980 Site: [facility] Ethnicity: or Race: White Attending MD: Kenn Cochran MD, [id number] Procedure: Colonoscopy Indications: Disease activity assessment of Crohn's disease ofthe small bowel and colon Comorbidities Patient with >10 year h/o of Crohn's (Smal bowel and colon) currently not on any IBD medications. Patient Profile: This is a 37 year old female. Refer to note inpatient chart for documentation of history and physical. Providers: Kenn Cochran MD (Doctor) Referring MD: Aquiles Francisco Provider Care Team: Lubna Walker NP Medicines: Monitored Anesthesia Care Complications: No immediate complications. Procedure: Pre-Anesthesia Assessment: - Prior to the procedure, a History and Physicalwas performed, and patient medications and allergieswere reviewed. The patient is competent. The risks and benefits of the procedure and the sedation optionsand risks were discussed with the patient. Allquestions were answered and informed consent was obtained. Patient identification and proposed procedure were verified by the physician and the nurse in the pre-procedure area in the procedure room. Mental Status Examination: alert and oriented. Airway Examination: Mallampati Class III (part of theuvula and soft palate visualized). RespiratoryExamination: clear to auscultation. CV Examination: normal. Prophylactic Antibiotics: The patient does notrequire prophylactic antibiotics. Prior Anticoagulants: The patient has taken no previous anticoagulant or antiplatelet agents. ASA Grade Assessment: II - A patient with mild systemic disease. After reviewing the risks and benefits, the patient was deemed in satisfactory condition to undergo the procedure.The anesthesia plan was to use monitored anesthesiacare (MAC). Immediately prior to administration of medications, the patient was re-assessed foradequacy to receive sedatives. The heart rate, respiratory rate, oxygen saturations, blood pressure, adequacyof pulmonary ventilation, and response to care were monitored throughout the procedure. The physical status of the patient was re-assessed after the procedure. After I obtained informed consent, the scope was passed under direct vision. Throughout theprocedure, the patient's blood pressure, pulse, and oxygen saturations were monitored continuously. The Colonoscope was introduced through the anus and advanced to the terminal ileum, with identificationof the appendiceal orifice and IC valve. Thecolonoscopy was performed without difficulty. The patient tolerated the procedure well. The quality of thebowel preparation was evaluated using the BBPS (BostonBowel Preparation Scale) with scores of: Right Colon = 2 (minor amount of residual staining, small fragmentsof stool and/or opaque liquid, but mucosa seen well), Transverse Colon = 2 (minor amount of residual staining, small fragments of stool and/or opaque liquid, but mucosa seen well) and Left Colon = 2 (minor amount of residual staining, small fragmentsof stool and/or opaque liquid, but mucosa seen well).The total BBPS score equals 6. The terminal ileum, ileocecal valve, appendiceal orifice, and rectumwere photographed. Findings: The perianal and digital rectal examinations were normal. The terminal ileum appeared normal. Biopsies were taken with a cold forceps for histology. The specimen was placed in Jar C. External hemorrhoids were found during retroflexion. The hemorrhoids were small. There is no endoscopic evidence of inflammation in the entire colon. Biopsies were taken with a cold forceps for histology from rightcolon, transverse colon, left colon and the rectum. The specimen was placedin Jar D-G. The exam was otherwise without abnormality on direct and retroflexion views. Moderate Sedation: MAC case Estimated Blood Loss: Estimated blood loss was minimal. Impression: - The examined portion of the ileum was normal. Biopsied. - External hemorrhoids. - The examination was otherwise normal on directand retroflexion views. Recommendation: - Patient has a contact number available for emergencies. The signs and symptoms of potential delayed complications were discussed with thepatient. Return to normal activities tomorrow. Written discharge instructions were provided to thepatient. - Resume previous diet. - Continue present medications. - Await pathology results. - Repeat colonoscopy in 3 years to assess disease activity. - Return to GI clinic as previously scheduled. MaryE. Aaron NP Procedure Code(s): --- Professional --- 99264, Colonoscopy, flexible; with biopsy, singleor multiple Diagnosis Code(s): --- Professional --- K64.4, Residual hemorrhoidal skin tags K50.80, Crohn's disease of both small and large intestine without complications CPT copyright 2021 [employer]. All rights reserved. The codes documented in this report are preliminary and upon assistant manager retail reviewmay be revised to meet current compliance requirements. Attending Participation: I personally performed the entire procedure. Kenn Cochran MD 04/01/2017 10:12:43 AM Number of Addenda: 0 Note Initiated On: 04/01/2017 9:41 AM Scope Withdrawal Time 0 hours 8 minutes 51 seconds Total Procedure Duration Time 0 hours 18 minutes 48 seconds Authorizing ProviderResult TypeResult StatusBenjamin E Ball DOENDOSCOPY PROCEDURE ORDERABLESEdited Result - Final * Esophagogastroduodenoscopy (EGD) (04/01/2017 9:10 AM EST)Anatomical Region LateralityModalityEndoscopySpecimen (Source)Anatomical Location / Laterality Collection Method / VolumeCollection TimeReceived Time04/01/2017 9:10 AM EST Narrative 04/16/2022 3:51 PM EST Patient Name: Wild Yi Procedure Date: 04/01/2017 9:10 AM Date of : 1980 Site: [facility] Ethnicity: or Race: White Attending MD: Kenn Cochran MD, [id number] Procedure: ? Upper GI endoscopy Indications: ? Crohn's disease, Diarrhea Patient Profile: ? This is a 37 year old female. Refer to note in patient ? chart for documentation of history and physical. Providers: ? Kenn Cochran MD (Doctor) Referring MD: ?Aquiles Francisco Provider Care Team: ?Lubna Walker NP Medicines: ? Monitored Anesthesia Care Complications: ? No immediate complications. Procedure: ? Pre-Anesthesia Assessment: ? - Prior to the procedure, a History and Physical was ? performed, and patient medications and allergies were ? reviewed. The patient is competent. The risks and ? benefits of the procedure and the sedation options and ? risks were discussed with the patient. All questions ? were answered and informed consent was obtained. ? Patient identification and proposed procedure were ? verified by the physician and the nurse in the ? pre-procedure area in the procedure room. Mental ? Status Examination: alert and oriented. Airway ? Examination: Mallampati Class III (part of the uvula ? and soft palate visualized). Respiratory Examination: ? clear to auscultation. CV Examination: normal. ? Prophylactic Antibiotics: The patient does not require ? prophylactic antibiotics. Prior Anticoagulants: The ? patient has taken no previous anticoagulant or ? antiplatelet agents. ASA Grade Assessment: II - A ? patient with mild systemic disease. After reviewing ? the risks and benefits, the patient was deemed in ? satisfactory condition to undergo the procedure. The ? anesthesia plan was to use monitored anesthesia care ? (MAC). Immediately prior to administration of ? medications, the patient was re-assessed for adequacy ? to receive sedatives. The heart rate, respiratory ? rate, oxygen saturations, blood pressure, adequacy of ? pulmonary ventilation, and response to care were ? monitored throughout the procedure. The physical ? status of the patient was re-assessed after the ? procedure. ? After obtaining informed consent, the endoscope was ? passed under direct vision. Throughout the procedure, ? the patient's blood pressure, pulse, and oxygen ? saturations were monitored continuously. The Endoscope ? was introduced through the mouth, and advanced to the ? second part of duodenum. The upper GI endoscopy was ? accomplished without difficulty. The patient tolerated ? the procedure well. Findings: ? The duodenal bulb and second portion of the duodenum were normal. ? Biopsies were taken with a cold forceps for histology. The specimen was ? placed in Jar A. ? A single localized, 4 mm non-bleeding erosion was found on the lesser ? curvature of the stomach. There were no stigmata of recent bleeding. ? Biopsies were taken with a cold forceps for histology. Verification of ? patient identification for the specimen was done by the physician and ? nurse. The specimen was placed in Jar B. ? The exam of the stomach was otherwise normal. ? The Z-line was regular and was found 37 cm from the incisors. ? The exam was otherwise without abnormality. Moderate Sedation: ? MAC case Estimated Blood Loss: ? Estimated blood loss was minimal. Impression: ?- Normal duodenal bulb and second portion of the ? duodenum. Biopsied. ? - Non-bleeding erosive gastropathy. Biopsied. ? - Z-line regular, 37 cm from the incisors. ? - The examination was otherwise normal. Recommendation: ?- Patient has a contact number available for ? emergencies. The signs and symptoms of potential ? delayed complications were discussed with the patient. ? Return to normal activities tomorrow. Written ? discharge instructions were provided to the patient. ? - Resume previous diet. ? - Continue present medications. ? - Await pathology results. ? - Return to GI clinic in 4 weeks. Procedure Code(s): ? --- Professional --- ? 70509, Esophagogastroduodenoscopy, flexible, ? transoral; with biopsy, single or multiple Diagnosis Code(s): ? --- Professional --- ? K31.89, Other diseases of stomach and duodenum ? K50.90, Crohn's disease, unspecified, without ? complications ? R19.7, Diarrhea, unspecified CPT copyright 2021 [employer]. All rights reserved. The codes documented in this report are preliminary and upon assistant manager retail review may be revised to meet current compliance requirements. Attending Participation: ? I personally performed the entire procedure. Kenn Cochran MD 04/01/2017 9:45:53 AM Number of Addenda: 0 Note Initiated On: 04/01/2017 9:10 AM Total Procedure Duration Time 0 hours 7 minutes 23 seconds Procedure Note Kenn Cochran MD - 10/06/2024 Patient Name: Wild Yi Procedure Date: 04/01/2017 9:10 AM Date of : 1980 Site: [facility] Ethnicity: or Race: White Attending MD: Kenn Cochran MD, [id number] Procedure: Upper GI endoscopy Indications: Crohn's disease, Diarrhea Patient Profile: This is a 37 year old female. Refer to note inpatient chart for documentation of history and physical. Providers: Kenn Cochran MD (Doctor) Referring MD: Aquiles Francisco Provider Care Team: Lubna Walker NP Medicines: Monitored Anesthesia Care Complications: No immediate complications. Procedure: Pre-Anesthesia Assessment: - Prior to the procedure, a History and Physicalwas performed, and patient medications and allergieswere reviewed. The patient is competent. The risks and benefits of the procedure and the sedation optionsand risks were discussed with the patient. Allquestions were answered and informed consent was obtained. Patient identification and proposed procedure were verified by the physician and the nurse in the pre-procedure area in the procedure room. Mental Status Examination: alert and oriented. Airway Examination: Mallampati Class III (part of theuvula and soft palate visualized). RespiratoryExamination: clear to auscultation. CV Examination: normal. Prophylactic Antibiotics: The patient does notrequire prophylactic antibiotics. Prior Anticoagulants: The patient has taken no previous anticoagulant or antiplatelet agents. ASA Grade Assessment: II - A patient with mild systemic disease. After reviewing the risks and benefits, the patient was deemed in satisfactory condition to undergo the procedure.The anesthesia plan was to use monitored anesthesiacare (MAC). Immediately prior to administration of medications, the patient was re-assessed foradequacy to receive sedatives. The heart rate, respiratory rate, oxygen saturations, blood pressure, adequacyof pulmonary ventilation, and response to care were monitored throughout the procedure. The physical status of the patient was re-assessed after the procedure. After obtaining informed consent, the endoscope was passed under direct vision. Throughout theprocedure, the patient's blood pressure, pulse, and oxygen saturations were monitored continuously. TheEndoscope was introduced through the mouth, and advanced tothe second part of duodenum. The upper GI endoscopy was accomplished without difficulty. The patienttolerated the procedure well. Findings: The duodenal bulb and second portion of the duodenum were normal. Biopsies were taken with a cold forceps for histology. The specimenwas placed in Jar A. A single localized, 4 mm non-bleeding erosion was found on the lesser curvature of the stomach. There were no stigmata of recent bleeding. Biopsies were taken with a cold forceps for histology. Verificationof patient identification for the specimen was done by the physician and nurse. The specimen was placed in Jar B. The exam of the stomach was otherwise normal. The Z-line was regular and was found 37 cm from the incisors. The exam was otherwise without abnormality. Moderate Sedation: MAC case Estimated Blood Loss: Estimated blood loss was minimal. Impression: - Normal duodenal bulb and second portion of the duodenum. Biopsied. - Non-bleeding erosive gastropathy. Biopsied. - Z-line regular, 37 cm from the incisors. - The examination was otherwise normal. Recommendation: - Patient has a contact number available for emergencies. The signs and symptoms of potential delayed complications were discussed with thepatient. Return to normal activities tomorrow. Written discharge instructions were provided to thepatient. - Resume previous diet. - Continue present medications. - Await pathology results. - Return to GI clinic in 4 weeks. Procedure Code(s): --- Professional --- 45749, Esophagogastroduodenoscopy, flexible, transoral; with biopsy, single or multiple Diagnosis Code(s): --- Professional --- K31.89, Other diseases of stomach and duodenum K50.90, Crohn's disease, unspecified, without complications R19.7, Diarrhea, unspecified CPT copyright 2021 [employer]. All rights reserved. The codes documented in this report are preliminary and upon assistant manager retail reviewmay be revised to meet current compliance requirements. Attending Participation: I personally performed the entire procedure. Kenn Cochran MD 04/01/2017 9:45:53 AM Number of Addenda: 0 Note Initiated On: 04/01/2017 9:10 AM Total Procedure Duration Time 0 hours 7 minutes 23 seconds Authorizing ProviderResult TypeResult StatusBenjamin E Ball DOENDOSCOPY PROCEDURE ORDERABLESEdited Result - Final from Last 3 Months or Most Recently Relevant to Health Maintenance [place] [address] MemberSubscriberPlan / Payer (Effective 2022-Present)Name:Wild Yi Member ID:[id number] Relation to Subscriber:SelfName:Wild Yi Subscriber ID:[id number] Payer ID:[id number] (NAIC) Type:Not on file Address: [facility] [id number] [place] [id number] Care Teams Team MemberRelationshipSpecialtyStart DateEnd Date Generic Provider, No Assigned Pcp, [place] [address] PCP - GeneralGeneral Practice07/14/23
--- OUTSIDE RECORDS SUMMARY | 2025-02-08 16:56 | XMS_ITS | Patient Health Record ---
Author Organization [facility] Address [address] [address], [place] [address] Care Team Providers Care Manager Of Loss Prevention Operations Name Role Phone Juan LuisRonen kurtz Unavailable [phone] Allergies No Known Allergies Reason For Referral No Information Medications Medication SIG (Take, Route, Frequency, Duration) Notes Start Date End Date Status tiZANidine HCl 4 MG Tablet TAKE 1/2 - 1 TABLET BY MOUTH AT BEDTIME NEEDED FOR NECK PAIN Oral; Duration: 90 Days ActiveSertraline HCl 100 MG TabletTAKE 1 TABLET BY MOUTH EVERY DAY Oral; Duration: 90 DaysActiveLevothyroxine Sodium 100 MCG TabletTAKE 1 TABLET BY MOUTH EVERY DAY BEFORE BREAKFAST Oral; Duration: 90 DaysActiveMeloxicam 15 MG Tablet TAKE 1 TABLET BY MOUTH EVERY DAY; Duration: 30ActiveOmeprazole 20 MG Capsule Delayed ReleaseTAKE 1 CAPSULE BY MOUTH EVERY DAY Oral; Duration: 90 DaysActive Social History Sex Assigned At : Social History Observation Description Sex Assigned At Female Section Notes: Patient is a nonsmoker. Social alcohol use. Encounters Encounter Location Date Provider Diagnosis [facility] [address] [address], [place] [address] 12/02/2024 Ronen Mcmahan Achilles tendinosis of right ankle M67.873 ; Calcaneal spur, right M77.31 and Plantar wart, left foot B07.0 Assessments Encounter Date Diagnosis (ICD Code) Assessment Notes Treatment Notes Treatment Clinical Notes Section Notes 12/02/2024 Calcaneal spur, right (ICD-10 - M77.31) 5Achilles tendinosis of right ankle (ICD-10 - M67.873) Patient was seen and evaluated. Patient education provided and all questions answered to satisfaction. I recommended nonsurgical treatment at this time. Treatment advices included: - RICE therapy as well as shoe and activity modification - Emphasis on stretching and handout was provided - Physical therapy was recommended with dry needling and iontophoresis however patient declined - Discussed medications and potential side effect. Medication(s) recommended/prescribed: meloxicam.She is to d/c ibuprofen and all other PO NSAIDs. She may use OTC voltaren prn. - Imaging ordered: none - She would like to avoid surgery at this time. F/u 6 wks 12/02/2024Plantar wart, left foot (ICD-10 - B07.0)Lesion on plantar left hallux is consistent with a wart and was trimmed to pinpoint bleeding. I recommended topical compound to be applied as directed daily. Recommended a pumice stone to remove hyperkeratotic skin prior to application and to cover with duct tape. Plan Of Treatment No Information Insurance Providers Payer Name Payer Address Payer Phone Subscriber Number Group Number Insured Name Patient Relationship to Insured Coverage Start Date Coverage End Date [facility] [address] [place] [phone] [id number] Julian Calvo - patient is the insured Medical (General) History Medical History History ICD Code GERD Thyroid IssuesCrohn's DiseaseSurgical History Surgery Date(Month/Year) Left Achilles Tendon Repair 2019 Neuroma Removal Cholecystectomy
--- OUTSIDE RECORDS SUMMARY | 2025-02-08 16:56 | XMS_ITS | Patient Health Record ---
Author Organization [facility] Address [address] [place] [address] Care Team Providers Care Natural Gas Trader Name Role Phone FANNY CIRO SANCHEZ Primary Care Provider Jgkrupa to Louie Johnson Unavailable [phone] Allergies No Known Allergies Reason For Referral No Information Social History Tobacco Use: Social History Observation Description Date Details (start date - stop date) Never Smoker NA - NA AUDIT-C (Standard) Question Answer Notes Did you have a drink containing alcohol in the p ast year? Yes How often did you have six or more drinks on one occasion in the past year? Declined to specify (0 point)How many drinks did you have on a typical day when you were drinking in the past year?1 or 2 drinks (0 point)How often did you have a drink containing alcohol in the past year?Declined to specify (0 point)Points0 InterpretationNegativeTobacco Control (Standard) Question Answer Notes Tobacco use: Nonsmoker Problems Problem Type SNOMED Code ICD Code Onset Dates Problem Status W/U Status Risk Notes Problem 150078363 Spondylolisthesis, lumbosacr al region (M43.17) [id number] stenosis, lumbosacral region (M48.07) O[id number] intervertebral disc degeneration, lumbosacral region (M51.37)RlrjwxbmevkzrqqTqcderl0333986Stbpsysauztbd, lumbosacral region (M54.17)[id number], right side (M54.31)I[id number] (sacroiliac) pain (M53.3) Activeconfirmed Plan Of Treatment Pending Test Test Name Order Date Lumbar spine, 4v flex ext - 25859 2023 SFS - Lumbar Spine PT Order, Isometrics & Strenghening w/Modalities as needed, 2-3 times per week for 6 weeks 07/18/2023 Pain management- Eval and treat 07/18/19 24 MRI LUMBAR WITHOUT CONTRAST 06/27/2023 Insurance Providers Payer Name Payer Address Payer Phone Subscriber Number Group Number Insured Name Patient Relationship to Insured Coverage Start Date Coverage End Date [facility] [address] [place] [address] [id number] WILD YI Self - patient is the insured Medical (General) History Medical History History ICD Code High Blood Pressure, Thyroid diseaseGastric RefluxIrritable bowel syndromeKidney stonesAnxiety DepressionHealthcare workerSurgical History Surgery Date(Month/Year) Achiles tendon repair 2019 foot surgery
--- OUTSIDE RECORDS SUMMARY | 2025-02-08 16:56 | XMS_ITS | Encounter Summary ---
Author Organization [facility] Address [address] [place] [address] Phone Care Team Providers Care Armature Coil Winder Name Role Phone Generic Provider, No Assigned Pcp MD Primary Car e Provider Unavailable Encounter Details DateTypeDepartmentCare Team (Latest Contact Info)Ylyplswdvlt43/31/2025Travel Social History Tobacco UseTypesPacks/DayYears UsedDateSmoking Tobacco: Never Assessed CommentsUnknownSex and Gender InformationValueDate RecordedSex Assigned at Not on fileLegal CgkMacvvh43/25/2022 11:14 PM ESTGender IdentityNot on file Sexual OrientationNot on filedocumented as of this encounter Functional Status * Communicable Disease ScreeningQuestionAnswerDate of AssessmentAuthorDo you have any of the following new or worsening symptoms?None of these01/28/2025 10:35 AM Francoise Ardon documented as of this encounter Plan of Treatment DateTypeDepartmentCare Team (Latest Contact Info)Jgrjlollrsr65/19/2025 11:00 AM ESTTelemedicine [facility] [address] [place] [phone] [place] [address] [address] Department of [employer]-[place] [address] 04/25/2025 1:00 PM ESTTelemedicine [facility] [address] [place] [phone] [place] [address] [address] Department of [employer]-[place] [address] 05/23/2025 1:00 PM ESTTelemedicine [facility] [address] [facility] [address] [place] [phone] [place] [address] [address] Department of [employer]-[place] [address] 06/20/2025 1:00 PM EDTTelemedicine [facility] [address] [facility] [address] [facility] [address] [place] [phone] [place] [address] [address] Department of [employer]-[place] [address] documented as of this encounter Visit Diagnoses Not on filedocumented in this encounter Care Teams Team MemberRelationshipSpecialtyStart DateEnd Date Generic Provider, No Assigned Pcp, [place] [address] PCP - GeneralGeneral Practice07/14/23documented as of this encounter
--- OUTSIDE RECORDS SUMMARY | 2025-02-08 16:56 | XMS_ITS | Clinical Summary ---
Author Organization [facility] Address [address] [place], [place] [id number] Care Team Providers Care Sales Manager Name Role Phone Unavailable Primary Care Provider Unavailabl e Allergies No known active allergies Medications MedicationSigDispense QuantityRefillsLast FilledStart DateEnd DateStatus sertraline (ZOLOFT) 50 mg tablet Take 50 mg by mouth once daily.Active cyproheptadine 4 mg tablet Take 4 mg by mouth three times daily as needed.Active Family History Medical HistoryRelationCommentsBreast CancerMaternal GrandfatherRelationStatus CommentsMaternal Grandfather Social History Tobacco UseTypesPacks/DayYears UsedDateSmoking Tobacco: NeverSmokeless Tobacco: NeverAlcohol UseStandard Drinks/WeekCommentsNo0 (1 standard drink = 0.6 oz pure alcohol)CommentsNoSex and Gender InformationValueDate RecordedSex Assigned at BirthNot on fileLegal JknPsalpa09/02/2012 9:51 AM ESTGender Identity Not on fileSexual OrientationNot on file Last Filed Vital Signs Vital SignReadingTime TakenCommentsBlood Sfkfwctu605/8603 1:01 PM EDT Xfcvb030106/21/2013 1:01 PM EDTTemperature--Respiratory Alwq2689 1:01 PM EDTOxygen Saturation--Inhaled Oxygen Concentration--Peivdf721.2 kg (221 lb) 06/21/2013 1:01 PM YHNEwhmhn454.3 cm (5' 3.5 )06/21/2013 1:01 PM EDTBody Mass Index38.5303 1:01 PM EDT Plan of Treatment Health MaintenanceDue DateLast DoneCommentsAnxiety Htpboiuwh43/16/1996Depression Mwdwknebs11/16/1996HIV Yhqmrhhjo02/16/1996Hepatitis C Glojwhjbn59/16/1996 DTaP,Tdap,Td Vaccine (1 - Tdap)1997Hepatitis B Vaccine (1 of 3 - 19+ 3- dose series)1997Cervical Cancer Oxjvvgzin34/16/1999Mammogram Screening 2018CT Hcmaczbuhwgo42/16/2023Cologuard (FIT-DNA)2023olonoscopy Colorectal Cancer Nmvxsblkh22/16/2023iabetes Screening 2023Fecal Occult Blood2023Lipid Bopmeqrwv15 Ktjxidvqlqcxu65/16/2023ovid-19 Vaccine (2024- season)2024Influenza Vaccine (#1)2024 Procedures Procedure NamePriorityDate/TimeAssociated DiagnosisCommentsCOLONOSCOPY, GI 03/09/2004 CHOLESTEROL BLD06/29/2003 11:35 AM EST from Last 3 Months or Most Recently Relevant to Health Maintenance Results * COLONOSCOPY, GI (03/09/2004)ComponentValueRef RangeTest MethodAnalysis Time Performed AtPathologist SignatureTranscriptionDATE: 03/09/2004 ENDOSCOPIST: ??Kole Garza MD REFERRING PHYSICIAN: ? PATIENT NAME: [facility] NO: [id number] IMPRESSION: 1. ??Normal colonoscopic examination 45.23 PERFORMED BY: Performed by Kole Garza MD. INTRODUCTION Female patient presents for an outpatient colonoscopy. ??The indication for the procedure was inflammatory bowel disease. CONSENT: The benefits, risks, and alternatives to the procedure were discussed and informed consent was obtained from the patient. MEDICATIONS: - Versed 3 mg IV - Demerol 75 mg IV PROCEDURE: Rectal exam: Normal. The endoscope was passed without difficulty to the terminal ileum confirmed by landmarks. ??A staff physician was present for the entire procedure from the insertion to the removal of the scope. ??The quality of the preparation was excellent. FINDINGS: ??The colonic mucosa appeared entirely normal. ??There were no masses or polyps found. ??There were no vascular abnormalities noted. [facility] LABSpecimen (Source)Anatomical Location / LateralityCollection Method / VolumeCollection TimeReceived Time03/09/2004 Narrative [facility] - 03/09/2004 10:17 AM EST Ordered by an unspecified provider. Authorizing ProviderResult TypeResult StatusCcf ProviderSCHEDULED PROCEDURES Final ResultPerforming OrganizationAddressCity/State/ZIP CodePhone Number [facility] [address] [place] [address] * (ABNORMAL) CHOLESTEROL BLD (06/29/2003 11:35 AM EST)ComponentValueRef Range Test MethodAnalysis TimePerformed AtPathologist SignatureCholesterol, [place]269 (A)100 - 199 mg/dLK[facility] LABSpecimen (Source)Anatomical Location / LateralityCollection Method / VolumeCollection TimeReceived Time06/29/2003 11:35 AM EST Narrative Authorizing ProviderResult TypeResult StatusBret Tana Garza MDLABORATORYFinal ResultPerforming OrganizationAddressCity/State/ZIP CodePhone Number [facility] [address] [place] [address] from Last 3 Months or Most Recently Relevant to Health Maintenance Insurance
--- OUTSIDE RECORDS SUMMARY | 2025-02-08 16:57 | XMS_ITS | CCD ---
Author Organization [facility] Care Team Providers Care Inspector Aide Name Role Phone Subhash, Christopher S Unavailable [...] Attending Unavailable DO Tess Saxena Attending Provider NO FAMILY, PHYSICIAN Primary Care Unavailable Rinkes, Tess Admitting Unavailable Rinavis, Tess Attending Unavailable Aquiles Escobedo Primary Care Unavailable Eulalia, Rocio Admitting Unavailable Eulalia, Rocio Attending Unavailable BallAquiles Primary Care Unavailable Rinkes, Tess Admitting Unavailable Rinkes, Tess Attending Unavailable Fanny, Aquiles Unavailable Isaac, Dr. Kelsey Hernandez Attending Unavailable Isaac, Dr. Kelsey Hernandez Referring Unavailable Ball, Dr. Aquiles Fontanez [facility] Jeanne Gray, Dr. Kelsey Hernandez Attending Unavailable Isaac, Dr. Kelsey Hernandez Referring Unavailable Fanny, Dr. Aquiles Fontanez [facility] Jeanne Gray, Dr. Kelsey Hernandez Attending Unavailable Isaac, Dr. Kelsey Hernandez Referring Unavailable Ball, Dr. Aquiles Fontanez [facility] Jeanne Gray, Dr. Kelsey Hernandez Attending Unavailable Isaac, Dr. Kelsey Hernandez Referring Unavailable Fanny, Dr. Aquiles Fontanez [facility] Jeanne Gray, Dr. Kelsey Hernandez Attending Unavailable Isaac, Dr. Kelsey Hernandez Referring Unavailable Fanny, Dr. Aquiles Fontanez [facility] Jeanne Gray, Dr. Kelsey Hernandez Attending Unavailable Isaac, Dr. Kelsey Hernandez Referring Unavailable Fanny, Dr. Aquiles Fontanez [facility] Jeanne Gray, Dr. Kelsey Hernandez Attending Unavailable Isaac, Dr. Kelsey Hernandez Referring Unavailable Fanny, Dr. Aquiles Fontanez [facility] Jeanne Gray, Dr. Kelsey Hernandez Attending Unavailable Isaac, Dr. Kelsey Hernandez Referring Unavailable Fanny, Dr. Aquiles Fontanez [facility] Jeanne Gray, Dr. Kelsey Hernandez Attending Unavailable Isaac, Dr. Kelsey Hernandez Referring Unavailable Fanny, [facility] Dr. Kelsey Henrandez Attending Unavailable Isaac, Dr. Kelsey Hernandez Referring Unavailable Fanny, Dr. Aquiles Fontanez [facility] Jeanne dhaliwal Generic Provider , No Assigned [...] Primary Car e Provider Unavailable Aquiles Escobedo DO Primary Care Provider Angel Dorsey DO Attending Provider Aquiles Escobedo DO Attending Provider ISAAC, KELSEY L Attending Unavailable GENERIC PROVIDER, [...] Attending Unavailable ISAAC, KELSEY L Attending Unavailable GENERIC PROVIDER, NO ASSIGNED PCP Primary Care Unavailable ISAAC, KELSEY L Attending Unavailable ISAAC, KELSEY L Attending Unavailable Allergies Allergy ClassificationReported Allergen(s)Allergy TypeDate of OnsetReaction(s) Facility (2 sources)Amoxicillin / ClavulanateDrug AllergyUnknowResearch [facility] Other (3 sources)Hydroxyquinolone *CHEMICALS*Propensity to adverse [id number] Comment:[facility] ([facility] sources)ALLERGIES NOT ON FILE; Translations: [ALLERGIES NOT ON FILE] Propensity to adverse reactions (disorder)[facility] (1 source)AmoxicillinDrug Rftousf22-05-2149Zwyifhg ReactionLima Memorial Hospital (1 source)ClavulanateDrug Gybdbld97-65-5330Seywekc [facility] Medications Current Medications MedicationDrug Class(es)DatesSig (Normalized)Sig (Original)aspirin 81 mg chewable tablet (20 sources)Platelet Aggregation Inhibitor, Nonsteroidal Anti-inflammatory Drug Start: 08-20-2022 End: 84-45-4244wxef 1 tablet by mouth once dailyAspirin 81 mg Tablet,Chewable Active 1 TAB PO Daily August 20, 2022 1:49pm Complies with drug therapy Start: 08-18-2022 End: 15-66-7284Bwptlqc (Aspirin Low-Strength) 81 mg Tablet,Chewable Discontinued 162 MG PO Daily at bedtime August 18, 2022 12:00am August 20, 2022 1:49pmStart: 08-18-2022 End: 59-73-6345mjwh 162 mg by mouth once dailyAspirin Discontinued 162 MG PO Daily August 18, 2022 12:00am August 18, 2022 11:07pmStart: 67-58-5245fiax 1 tablet by mouth every twenty-four hoursAspirin Adult Low Dose 81 MG 1 tablet Orally Once a day for 0 days Oct, Activetake 2 tablets by mouth once dailyAspirin 81 MG Oral Tablet Delayed Release TAKE 2 TABLET Daily Quantity: 60 Refills: 6 Ordered: 17-Dec-2019 Jamshid Currie MD ActiveAspirin 81 MG Oral Tablet Delayed Release Refills: 0 DO Activeibuprofen 600 mg oral tablet (2 sources)Nonsteroidal Anti-inflammatory DrugStart: 71-17-8675nntl 4 tablets by mouth every twenty-four hours for painIbuprofen 600 mg tablet Active 600 MG PO Every 6 hours as needed for pain August 20, 2022 12:00amdo not exceed 4 doses in a 24 hour period Complies with drug therapylevothyroxine sodium 0.1 mg oral tablet (20 sources)l-ThyroxineStart: 54-89-0542uuso 1 tablet by mouth once daily before breakfastLevothyroxine 100 mcg tablet Active 0 .ROUTE .COMPLEX July 16, 2024 1:09pm TAKE 1 TABLET BY MOUTH EVERY DAY BEFORE BREAKFAST Complies with drug therapyStart: 06-02-2023 End: 48-83-3697zjgs 1 capsule by mouth once daily before breakfastLevothyroxine 100 mcg capsule Discontinued 100 MCG PO Daily before breakfast 90 90 June 02, 2023 2:26pm July 16, 2024 1:10pmStart: 64-52-6698tmyz 1 tablet by mouth once daily in the morninglevothyroxine (Synthroid, Levoxyl) 100 MCG tablet Indications: 30 weeks gestation of TAKE1 TABLET BY MOUTH EVERY DAY IN THE MORNING ON AN EMPTY STOMACH 90 tablet 09/04/2022 ActiveStart: 97-94-5651qktb 1 tablet by mouth once daily in the morningLevothyroxine Sodium 75 MCG Oral Tablet TAKE 1 TABLET Daily take in the morning, on an empty stomach, avoid eating/drinking for one hour after Quantity: 30 Refills: 2 Ordered: 28-Dec-2021 Clotilde Espinosa MD Start : 28-Dec-2021 ActiveStart: 44-29-5235ozig 1 tablet by mouth once daily in the morningLevothyroxine Sodium 50 MCG 1 tablet in the morning on an empty stomach Orally Once a day Oct, ActiveStart: 72-10-4014tget 1 tablet by mouth once daily in the morningLevothyroxine Sodium 50 MCG 1 tablet in the morning on an empty stomach Orally Once a day Oct, ActiveStart: 15-01-7308zqdp 1 tablet by mouth once dailyLevothyroxine Sodium 75 MCG Oral Tablet Take 1 tablet daily Quantity: 90 Refills: 2 Ordered: 2019 Clotilde Espinosa MD Start : 31-Aug-2018 ActiveStart: 07-23-2017 End: 12-40-7363hhij 2 capsules by mouth once daily before breakfastLevothyroxine 50 mcg capsule Discontinued 100 MCG PO Daily before breakfast 180 90 May 29, 2023 8:30pm June 02, 2023 2:27pmStart: 07-23-2017 End: 57-12-4590lluj 100 ug by mouth once daily before breakfastLevothyroxine Discontinued 100 MCG PO Daily before breakfast 180 90 May 29, 2023 8:30pm June 02, 2023 2:27pmStart: 75-95-9205yddl 50 ug by mouth once daily Levothyroxine Active 50 MCG PO Daily July 23, 2017 12:47pmmeloxicam 15 mg oral tablet (1 source)Nonsteroidal Anti-inflammatory DrugStart: 59-29-7264zvmv 1 tablet by mouth once dailyMeloxicam 15 mg tablet Active 15 MG PO Daily December 15, 2024 12:00am Complies with drug therapyomeprazole 20 mg delayed release oral capsule (14 sources)Proton Pump InhibitorStart: 04-07-2024 End: 03-69-5530wjyc 1 capsule by mouth once dailyOmeprazole 20 mg capsule,delayed release(DR/EC) Active 20 MG PO Daily November 17, 2024 12:58pm Complies with drug therapyStart: 28-26-4954tibe 1 tablet by mouth once dailyOmeprazole 10 MG Oral Capsule Delayed Release TAKE ONE TABLET BY MOUTH DAILY Quantity: 30 Refills: 3 Ordered: 28-Mar-2020 Annie Chou MD Start : 28-Mar-2020 ActivePrenatal Vyjmgfmi-Vig-Jh-Fa (1 source)Start: 02-92-3343gvoh 1 tablet by mouth oncePrenatal Aamdqajv-Ovi-Ca-Fa Active TAB PO August 18, 2022 12:00amPrenatal Rhiapoxj-Ajj-Gu-Fa 1 mg Tablet (1 source)Start: 41-43-9430abki 1 tablet by mouth oncePrenatal Uswdhrng-Ljl-Ka-Fa 1 mg Tablet Active TAB PO August 18, 2022 12:00am Complies with drug therapyPRENATAL VIT-FE CBN-FE SULF-FA PO (3 sources) VIT-FE CBN-FE SULF-FA PO Take by mouth. Activesertraline 100 mg oral tablet (20 sources)Serotonin Reuptake InhibitorStart: 11-12-2023 End: 08-77-5224tste 1 tablet by mouth once dailySertraline 100 mg tablet Active 0 .ROUTE .COMPLEX November 15, 2024 7:40am TAKE 1 TABLET BY MOUTH EVERY DAY Complies with drug therapyStart: 06-16-2017 End: 10-77-5364entw 1 tablet by mouth once daily at bedtimeSertraline 100 mg tablet Discontinued 100 MG PO Daily at bedtime July 23, 2017 12:00am November 12, 2023 1:25pmtake 2 tablets by mouth once dailyZoloft 50 MG Oral Tablet TAKE 2 TABLETS DAILY. Quantity: 0 Refills: 0 Ordered: 11-Jan-2020 Jamshid Currie MD ActiveZoloft 50 MG Oral Tablet Refills: 0 DO ActivetiZANidine 4 mg oral tablet (8 sources)Central alpha-2 Adrenergic AgonistStart: 07-07-2023 End: 83-05-9238qlpz 0.5-1 tablets by mouth at bedtime as needed for pain Tizanidine 4 mg tablet Active 0 .ROUTE .COMPLEX May 24, 2024 10:25am TAKE 1/2 - 1 TABLET BY MOUTH AT BEDTIME NEEDED FOR NECK PAIN Complies with drug therapyStart: 17-49-9362kgrx 0.5-1 tablets by mouth at bedtime as needed for painTizanidine Active 0 .ROUTE .COMPLEX July 07, 2023 7:30pm TAKE 1/2 - 1 TABLET BY MOUTH AT BEDTIME NEEDED FOR NECK PAINStart: 06-12-2023 End: 13-35-5572mmfq 1 tablet by mouth once daily at bedtime as neededTizanidine 4 mg tablet Discontinued 4 MG PO Daily at bedtime as needed for muscle spasticity June 12, 2023 12:00am July 07, 2023 7:30pm 1/2 - 1 PO q HS PRN neck pain Completed/Discontinued Medications MedicationDrug Class(es)DatesSig (Normalized)Sig (Original)acetaminophen 325 mg / HYDROcodone bitartrate 5 mg oral tablet (4 sources)Opioid AgonistStart: 07-23-2017 End: 32-44-7994knwu 1 tablet by mouth every four hoursHydrocodone-Acetaminophen ([place]) 5-325 mg tablet Discontinued 1 TAB PO Q4H July 23, 20172022 11:[id number] 60 actuat albuterol 0.09 mg/actuat metered dose inhaler (2 sources)beta2-Adrenergic AgonistStart: 75-60-7589bvai 2 puff(s) by inhalation every four hours as needed for coughAlbuterol Sulfate HFA 108 (90 Base) MCG/ACT 2 puffs as needed Inhalation every 4 hrs for As needed for cough or wheeze May, Not-Taking/PRNStart: 14-50-6381axrw 2 puff(s) by inhalation every four hours as needed for coughAlbuterol Sulfate HFA 108 (90 Base) MCG/ACT 2 puffs as needed Inhalation every 4 hrs for As needed for cough or wheeze May, Not-TakingALPRAZolam 0.25 mg oral tablet (4 sources)BenzodiazepineStart: 19-40-7336uopo 1 tablet by mouth every eight hours as needed for anxietyALPRAZolam 0.25 MG Oral Tablet TAKE 1 TABLET BY MOUTH EVERY 8 HOURS NEEDED FOR ANXIETY Quantity:30 Refills: 0 Start : 04-Mar-2018 ActiveAspirin 162 mg Tablet,Delayed Release (Dr/Ec) (1 source)Start: 08-18-2022 End: 09-51-5327looj 1 tablet by mouth once dailyAspirin 162 mg Tablet,Delayed Release (Dr/Ec) Discontinued 162 MG PO Daily August 18, 2022 12:00am August 18, 2022 11:07pmAugmentin Tablets 875 MG (2 sources)Start: 01-64-5940gfoc 1 tablet by mouth every twelve hoursAugmentin Tablets 875 MG 1 tablet By mouth Every 12 hours for 10 days May, Not-Taking/PRNStart: 12-93-0742onmw 1 tablet by mouth every twelve hours Augmentin Tablets 875 MG 1 tablet By mouth Every 12 hours for 10 days May, Not-Takingazithromycin 250 mg oral tablet (4 sources)Macrolide AntimicrobialStart: 06-02-2023 End: 45-89-2226Rwghgyeevxqv 250 mg tablet Discontinued 250 MG PO As Directed 6 June 02, 2023 1:00am December 10, 2023 2:00pmStart: 12-82-6135uvgi 1 tablet by mouth every twenty-four hoursZithromax 500 MG 1 tablet Orally Once a day for 5 day(s) May, Not-Taking/PRNBD Disp [place] 18G X 1-1/2 (1 source)Start: 22-20-8755SX Disp [place] 18G X 1-1/2 Use to draw up Progesterone/Oil Quantity: 30 Refills: 3 Clotilde Espinosa MD Start : 19-Aug-2019 Activebenzonatate 100 mg oral capsule (2 sources)Non-narcotic AntitussiveStart: 50-23-3910xevu 1 capsule by mouth every eight hoursBenzonatate 100 MG 1 capsule as needed Orally Three times a day for As needed for cough May, Not-Taking/PRNcephalexin 500 mg oral capsule (4 sources)Cephalosporin AntibacterialStart: 07-23-2017 End: 03-46-3184wpwa 1 capsule by mouth every twelve hoursCephalexin (Keflex) 500 mg capsule Discontinued 500 MG PO Q12H July 23, 2017 12:00am August 18, 2022 11:04pmciprofloxacin 3 mg/ml / dexamethasone 1 mg/ml otic suspension (1 source)Corticosteroid, Quinolone AntimicrobialStart: 40-39-3464Peoyrgdsctlfo- Dexamethasone 0.3-0.1 % Otic Suspension Quantity: 8 Refills: 0 Ordered: 29-Nov-2020 DOStart : 29-Nov-2020 Completecyclobenzaprine hydrochloride 10 mg oral tablet (1 source)Muscle RelaxantStart: 86-05-0998Cikpfgiscsaogbg HCl - 10 MG Oral Tablet Quantity: 30 Refills: 0 Ordered: 12-Dec-2020 DO Start : 11-Dec-2020 CompleteCyproheptadine (2 sources)Cyproheptadine HCl Not-Taking/PRNCyproheptadine HCl Not-Taking doxycycline hyclate 100 mg oral capsule (4 sources)Tetracycline-class DrugStart: 79-77-4328xiyp 1 capsule by mouth twice dailyDoxycycline Hyclate 100 MG Oral Capsule Take 1 capsule twice daily Quantity: 8 Refills: 0 Clotilde Jalloh Start : 04-Aug-2018 Active0.6 ml enoxaparin sodium 100 mg/ml prefilled syringe (20 sources)Low Molecular Weight HeparinStart: 51-35-8015Vzhcqgwjfn Sodium 60 MG/0.6ML Injection Solution Prefilled Syringe INJECT 60 MG Daily Quantity: 30 R efills: 2 Ordered: 06-Sep-2021 Clotilde Espinosa MD Start : 01-Sep-2021 Active estradiol 2 mg oral tablet (20 sources)EstrogenStart: 79-35-1891tkji 1 tablet by mouth three times daily Estradiol 2 MG Oral Tablet TAKE 1 TABLET 3 times daily Quantity: 90 Refills: 2 Ordered: 06-Sep-2021 Clotilde Espinosa MD Start : 01-Sep-2021 ActiveStart: 27-15-7993nodp 3 tablets by mouth once dailyEstradiol 2 MG Oral Tablet take 3 tablets a day orally Quantity: 90 Refills: 3 Clotilde Espinosa MDStart : 04-Aug-2018 ActiveStart: 07-23-2017 End: 72-11-0448zore 1 tablet by mouth twice dailyEstradiol 2 mg tablet Discontinued 2 MG PO Twice daily July 23, 2017 12:00am August 18, 2022 11:04pm famotidine 20 mg oral tablet (7 sources)Histamine-2 Receptor AntagonistStart: 08-18-2022 End: 20-79-6767obhh 1 tablet by mouth twice dailyFamotidine (Pepcid) 20 mg tablet Discontinued 20 MG PO Twice daily 180 90 April 07, 2024 4:30pm April 07, 2024 4:48pmFamotidine (PEPCID PO) Pepcid Activetake 1 tablet by mouth once at bedtime as neededPepcid 20 MG 1 tablet at bedtime as needed Orally q HS Activefluticasone propionate 0.05 mg/actuat metered dose nasal spray (20 sources)CorticosteroidStart: 64-57-5534Iegyaavarwq Propionate 50 MCG/ACT Nasal Suspension Quantity: 48 Refills: 0 Ordered: 23-Jan-2021 DO Start : 23-Jan-2021 ActiveStart: 55-79-9181Aejbifwelko Propionate 50 MCG/ACT 2 sprays (1 spray in each nostril) Nasally Once a day for 0 days Jun, ActiveStart: 94-71-2141Zlkxkgczidb Propionate 50 MCG/ACT 2 sprays (1 spray in each nostril) Nasally Once a day for 0 days Jun, Activelabetalol hydrochloride 200 mg oral tablet (10 sources)beta-Adrenergic BlockerStart: 98-68-3092xlzv 1 tablet by mouth every twelve hoursLabetalol HCl - 200 MG Oral Tablet TAKE 1 TABLET BY MOUTH EVERY 12 HOURS Quantity: 60 Refills: 2 Ordered: 05-Jun-2020 Annie Chou MD Start : 12-May-2020 Activeletrozole 2.5 mg oral tablet (20 sources)Aromatase InhibitorStart: 27-12-9302fkkq 2 tablets by mouth once dailyLetrozole 2.5 MG Oral Tablet take 2 tablets by mouth every day Quantity: 60 Refills: 1 Ordered: 02-Nov-2021 Clotilde Espinosa MD Start : 01-Sep-2021 Active Start: 70-64-6882vvjk 2 tablets by mouth once dailyLetrozole 2.5 MG Oral Tablet TAKE 2 TABLET Daily Quantity: 180 Refills: 0 Clotilde Espinosa MD Start : 20-May-2019 Active1 ml leuprolide acetate 3.75 mg/ml prefilled syringe (20 sources)Gonadotropin Releasing Hormone Receptor AgonistStart: 09-01-2021 inject 3.75 mg by intramuscular injection onceLupron Depot (1-Month) 3.75 MG Intramuscular Kit INJECT 3.75 MG Intramuscular Quantity: 1 Refills: 1 Ordered: 06-Sep-2021 Clotilde Espinosa MD Start : 01-Sep-2021 ActiveStart: 58-29-4452igemgd 3.75 mg by intramuscular injection onceLupron Depot (1-Month) 3.75 MG Intramuscular Kit INJECT 3.75 MG Intramuscular Quantity: 1 Refills: 1 Clotilde Espinosa MD Start : 20-May-2019 Activelidocaine hydrochloride 20 mg/ml mucous membrane topical solution (4 sources)Antiarrhythmic, Amide Local AnestheticStart: 48-97-7735Flqdsggkl Viscous 2 % SOLN USE 5ML EVERY 4-6 HOURS NEEDED for pain. Quantity: 1 Refills: 0 Mee Coyle Start : 06-May-2017 Active 100 ML Bottlelidocaine 25 mg/ml / prilocaine 25 mg/ml topical cream (19 sources)Antiarrhythmic, Amide Local AnestheticStart: 65-41-8308Ubpusueuw- Prilocaine 2.5-2.5 % External Cream APPLY 1 HOUR BEFORE PROCEDURE DIRECTED. Quantity: 2 Refills: 2 Ordered: 06-Sep-2021 Clotilde Espinosa MD Start : 01-Sep-2021 ActiveStart: 72-43-0885Wiuztjjjl-Prilocaine 2.5-2.5 % External Cream APPLY 1 HOUR BEFORE PROCEDURE DIRECTED. Quantity: 2 Refills: 2 Clotilde Espinosa MD Start : 19-Aug-2019 Active 30 GM TubeLuer Lock Safety Syringes 3 ML (1 source)Start: 89-82-4626Dncb Lock Safety Syringes 3 ML USE DIRECTED. Quantity: 31 Refills: 3 Clotilde Espinosa MD Start : 19-Aug-2019 Activemelatonin 5 mg oral capsule (8 sources)Start: 07-23-2017 End: 75-11-0202jjuu 1 capsule by mouth once dailyMelatonin 5 mg Capsule Discontinued 5 MG PO Daily July 23, 2017 12:00am August 18, 2022 11:04pm Melatonin 10 MG Oral Capsule Refills: 0 ActiveMethocarbamol (2 sources)Muscle RelaxantStart: 06-11-2023 End: 52-11-0686wpgn 1 tablet by mouth once daily at bedtimeMethocarbamol 1,000 mg tablet Discontinued 1000 MG PO Daily at bedtime June 11, 2023 12:00a m June 12, 2023 4:37pmStart: 06-11-2023 End: 59-49-2177eqxu 1000 mg by mouth once daily at bedtimeMethocarbamol Discontinued 1000 MG PO Daily at bedtime June 11, 2023 12:00am June 12, 2023 4:37pmmethylPREDNISolone 16 mg oral tablet (4 sources)CorticosteroidStart: 32-56-0449hjtb 1 tablet by mouth at bedtime methylPREDNISolone 16 MG Oral Tablet TAKE 1 TABLET Bedtime Quantity: 4 Refills: 0 Clotilde Espinosa MD Start : 04-Aug-2018 Activenaproxen 500 mg oral tablet (4 sources)Nonsteroidal Anti-inflammatory DrugStart: 07-23-2017 End: 89-48-1791lmbb 1 tablet by mouth twice daily at mealtimeNaproxen 500 mg tablet Discontinued 500 MG PO Twice daily July 23, 2017 12:00am August 18, 2022 11:04pm administer with food or milknorethindrone acetate 5 mg oral tablet (19 sources)Start: 17-66-3460sitn 1 tablet by mouth once dailyNorethindrone Acetate 5 MG Oral Tablet TAKE 1 TABLET DAILY. Quantity: 30 Refills: 1 Ordered: 06-Sep-2021 Clotilde Espinosa MD Start : 01-Sep-2021 ActiveStart: 44-96-6330hxqs 1 tablet by mouth once dailyNorethindrone Acetate 5 MG Oral Tablet Take 1 tablet daily Quantity: 90 Refills: 1 Clotilde Espinosa MD Start : 12-Jul-2019 Active ondansetron 4 mg disintegrating oral tablet (4 sources)Serotonin-3 Receptor AntagonistStart: 07-23-2017 End: 78-14-2910lkyy 1 tablet by mouth every eight hours as needed for nausea and vomitingOndansetron (Zofran Odt) 4 mg tablet,disintegrating Discontinued 4 MG PO Q8H as needed for nausea and vomiting 9 3 July 23, 2017 12:00am August 18, 2022 11:04pmoseltamivir 75 mg oral capsule (2 sources)Neuraminidase InhibitorStart: 32-44-7437fgpx 1 capsule by mouth every twelve hoursTamiflu 75 MG 1 capsule Orally Twice a day for 5 day(s) May, Not-Taking/PRNpredniSONE 10 mg oral tablet (20 sources)Start: 26-96-6669qnei 1 tablet by mouth once dailypredniSONE 10 MG Oral Tablet TAKE 1 TABLET DAILY. Quantity: 60 Refills: 0 Ordered: 10-Jan-2022 Christa Macias MD Start : 10-Jan-2022 ActiveStart: 09-41-4030huqhftMJPH 20 MG Oral Tablet Quantity: 10 Refills: 0 Ordered: 07-Dec-2020 DO Start : 07-Dec-2020 CompleteStart: 49-17-4916gwfl 1 tablet by mouth once dailypredniSONE 10 MG Oral Tablet Take 1 tablet daily Quantity: 90 Refills: 0 Clotilde Espinosa MD Start: 20-May-2019 ActiveStart: 83-89-1806qtvx 1 tablet by mouth twice daily as needed prednisone 20 mg 1 tablet orally Twice daily for 3 days May, Not-Taking/PRNPrenatal Plus/Iron 27-1 MG TABS (11 sources)Start: 86-64-1146Yzmagslu Plus/Iron 27-1 MG TABS TAKE 1 TABLET DAILY. Quantity: 90 Refills: 3 Luana Godinez MD Start: 02-Jan-2015 ActiveStart: 54-83-0432Ldrkekzt Plus/Iron 27-1 MG TABS TAKE 1 TABLET DAILY. Quantity: 90 Refills: 3 Luana Morin MD Start : 02-Jan-2015 ActivePrenatal Plus/Iron 27-1 MG TABS (20 sources)Start: 31-37-6898Vnyfmjec Plus/Iron 27-1 MG TABS TAKE 1 TABLET DAILY. Quantity: 90 Refills: 3 Ordered: 02-Jan-2015 Luana Godinez MD Start : 02-Jan-2015 Activeprogesterone 50 mg/ml injectable solution (20 sources)ProgesteroneStart: 65-95-8777mxglls 1 mL by intramuscular injection once dailyProgesterone 50 MG/ML Intramuscular Oil INJECT 1 ML Daily Quantity: 3 Refills: 2 Ordered: 06-Sep-2021 Clotilde Espinosa MD Start : 01-Sep-2021 Active Start: 19-86-7105Jrirwjghrw 100 MG Vaginal Insert INSERT 1 SUPP Twice daily Quantity: 60 Refills: 2 Ordered: 06-Sep-2021 Clotilde Espinosa MD Start : 01-Sep-2021 ActiveStart: 03-22-2983Nqlijcufhljo 50 MG/ML Intramuscular Oil USE DIRECTED Quantity: 3 Refills: 3 Clotilde Espinosa MDStart : 19-Aug-2019 Active 10 ML VialSyringe 22G X 1-1/2 3 ML (1 source)Start: 32-63-2023Sslhabm 22G X 1-1/2 3 ML Use to inject Progesterone/Oil Quantity: 30 Refills: 3 Clotilde Espinosa MD Start : 19-Aug-2019 ActiveTegaderm Ag Mesh 2 X2 External Pad (18 sources)Start: 96-46-8148Bsjbtlrb Ag Mesh 2 X2 External Pad APPLY 1 INCH Daily Quantity: 30 Refills: 2 Ordered: 06-Sep-2021 Clotilde Espinosa MD Start : 01-Sep-2021 ActiveTegaderm Film 2-3/8 x2-3/4 (1 source)Start: 32-46-7028Jebhopgd Film 2-3/8 x2-3/4 USE DIRECTED. Quantity: 30 Refills: 2 Clotilde Espinosa MD Start : 19-Aug-2019 Active Problems Active Problems Problem ClassificationProblemDateDocumented DateEpisodic/ChronicAbdominal pain (20 sources)Right lower quadrant pain; Translations: [Abdominal pain, right lower quadrant]EpisodicAdjustment disorders (8 sources)Complicated grieving; Translations: [Complicated bereavement]Episodic Administrative/social admission (8 sources)Bereavement; Translations: [Bereavement]EpisodicAllergic reactions (20 sources)H/O: non-drug allergy; Translations: [Other allergy, other than to medicinal agents]EpisodicAnxiety disorders (20 sources)Anxiety; Translations: [Mixed anxiety and depressive disorder] 65-50-8363QowhaodJpzgcxyy of urinary tract (8 sources)Kidney stone; Translations: [Calculus of kidney]56-68-9997Ztgqscmx Comment on above:Problem List clean-up per request of Phys. STANLEY Parikh Contraceptive and procreative management (20 sources)Encounter for male factor infertility in female patient; Translations: [Patient encounter status]EpisodicEndometriosis (20 sources)Endometriosis (clinical); Translations: [Endometriosis, site unspecified]ChronicEsophageal disorders (20 sources)Gastroesophageal reflux disease; Translations: [Esophageal reflux] ChronicEssential hypertension (20 sources)Hypertensive disorder; Translations: [Unspecified essential hypertension]ChronicFemale infertility (20 sources)Female infertility; Translations: [Infertility, female, of unspecified origin]ChronicGenitourinary symptoms and ill-defined conditions (20 sources)Urgent desire to urinate; Translations: [Urgency of urination] EpisodicImmunity disorders (20 sources)Immunodeficiency disorder; Translations: [Unspecified immunity deficiency]ChronicImmunizations and screening for infectious disease (20 sources)Patient encounter status; Translations: [Special screening examination for other specified viral diseases] Resolved: 02-21-7721EbyycbwdXqxwt disorders and dislocations; trauma-related (20 sources)Subluxation complex (vertebral); Translations: [Closed dislocation, vertebra, unspecified site]EpisodicMenopausal disorders (20 sources)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; Translations: [Diminished ovarian reserve]ChronicMenstrual disorders (4 sources)Amenorrhea; Translations: [Amenorrhea]ChronicMiscellaneous mental health disorders (20 sources)Psychosomatic factor in physical condition; Translations: [Psychic factors associated with diseasesclassified elsewhere]ChronicMood disorders (20 sources)Mild recurrent major depression; Translations: [Major depressive disorder, recurrent, mild]Onset: 57-50-8795IhgtotjHlwpb acquired deformities (2 sources)Spondylolisthesis L5/S1 level; Translations: [Spondylolisthesis, lumbosacral region]10-06-7419GjfyjmayButxk aftercare (20 sources)Long-term current use of steroid; Translations: [Long-term (current) use of steroids]EpisodicOther bone disease and musculoskeletal deformities (20 sources)Cervical somatic dysfunction; Translations: [Nonallopathic lesions, cervical region]EpisodicOther bone disease and musculoskeletal deformities (20 sources)Somatic dysfunction of upper limb; Translations: [Nonallopathic lesions, upper extremities]EpisodicOther bone disease and musculoskeletal deformities (20 sources)Somatic dysfunction of rib; Translations: [Nonallopathic lesions, rib cage]EpisodicOther bone disease and musculoskeletal deformities (20 sources)Segmental and somatic dysfunction of thoracic region; Translations: [Somatic dysfunction of thoracic region]EpisodicOther bone disease and musculoskeletal deformities (20 sources)Segmental and somatic dysfunction of head region; Translations: [Somatic dysfunction of head region]EpisodicOther complications of (20 sources)Missed miscarriage; Translations: [Missed ]EpisodicOther complications of (20 sources)Multigravida of advanced maternal age; Translations: [Elderly multigravida, unspecified as to episode of care or not applicable]EpisodicOther complications of (20 sources)Urinary tract infection in ; Translations: [Infections of genitourinary tract in , unspecified as to episode of care or not applicable]EpisodicOther complications of (4 sources)Endocrine, nutritional and metabolic diseases complicating , second trimester; Translations: [ENDOCRN NUTR MET DZ COMP PG 2ND TRI]Onset: 47-26-1234KlmcpobkAsktb endocrine disorders (7 sources)Diminished ovarian reserve; Translations: [Diminished ovarian reserve due to low antral follicle]EpisodicOther female genital disorders (20 sources)History of recurrent miscarriage - not ; Translations: [Recurrent loss without current ]EpisodicOther female genital disorders (20 sources)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 EHR CmteOther gastrointestinal disorders (8 sources)Diarrhea; Translations: [Diarrhea]EpisodicOther hereditary and degenerative nervous system conditions (20 sources)Other specified extrapyramidal and movement disorders; Translations: [Finding of scapular structure]ChronicOther lower respiratory disease (4 sources)Cough; Translations: [Cough]EpisodicOther nervous system disorders (20 sources)H/O: migraine; Translations: [Personal history of other disorders of nervous system and sense organs]EpisodicOther non-traumatic joint disorders (20 sources)Shoulder pain; Translations: [Pain in joint, shoulder region] EpisodicOther nutritional; endocrine; and metabolic disorders (20 sources)Obesity; Translations: [Obesity, unspecified]ChronicOther screening for suspected conditions (not mental disorders or infectious disease) (20 sources)Increased prolactin level; Translations: [Viral screening status] 36-31-0622IulqyzuaZazqd upper respiratory infections (20 sources)Chronic maxillary sinusitis; Translations: [Maxillary sinusitis] ChronicOther upper respiratory infections (9 sources)Maxillary sinusitis; Translations: [Maxillary sinusitis, unspecified chronicity]EpisodicOtitis media and related conditions (6 sources)Bilateral recurrent acute serous otitis media of middle ears; Translations: [Acute serous otitis media]EpisodicPolyhydramnios and other problems of amniotic cavity (20 sources)Subchorionic hematoma; Translations: [Other placental conditions, affecting management of mother, antepartum condition or complication]Episodic Regional enteritis and ulcerative colitis (17 sources)Crohn's disease; Translations: [Crohn's disease of small intestine] ChronicResidual codes; unclassified (20 sources)H/O: ; Translations: [First trimester ]Onset: 02-04-2022 Resolved: 12-19-1331GqyeanvrInuyklnm codes; unclassified (20 sources)Conceived by in vitro fertilization; Translations: [Other specified conditions influencing health status]EpisodicResidual codes; unclassified (1 source)24 weeks gestation of ; Translations: [24 WEEKS GESTATION OF ]Onset: 99-56-1931OgrjzhhgQzasugzv codes; unclassified (1 source)35 weeks gestation of ; Translations: [35 weeks gestation of ]Onset: 34-94-2150WhqrkpqqRsphuofpnkg; intervertebral disc disorders; other back problems (14 sources)Cervical radiculopathy; Translations: [Lumbar spondylosis]12-10-2023 ChronicSpontaneous (20 sources)Miscarriage; Translations: [ demise from miscarriage]Episodic Comment on above:9 wk D&C 11/02/2018;Sprains and strains (20 sources)Strain of back muscle; Translations: [Strain of thoracic region] EpisodicThyroid disorders (20 sources)Subclinical hypothyroidism; Translations: [Other specified acquired hypothyroidism]Onset: 04-10-2022 Resolved: 02-72-3716JfaffedKriimvqkrlcu (1 source)Unknown / UNK(Unknown)Onset: 85-03-2816Llbrvswpvnkc (1 source)Encounter for supervision of other normal , third trimester; Translations: [Encounter for supervision of other normal , third trimester]Onset: 21-52-0111Ienxkjdmqwwl (1 source)Encounter for screening for Streptococcus B; Translations: [Encounter for screening for Streptococcus B]Onset: 60-28-5214Ngwrdjd tract infections (20 sources)Urinary tract infectious disease; Translations: [Urinary tract infection, site not specified]Episodic Past or Other Problems Problem ClassificationProblemDateDocumented DateEpisodic/ChronicAcute and chronic tonsillitis (20 sources)Acute tonsillitis; Translations: [Acute tonsillitis] Resolved: 39-93-0105TkgftbhtEsfsehqymtymdi/social admission (7 sources)Conceived by in vitro fertilization; Translations: [Conceived by in vitro fertilization]Esophageal disorders (1 source)Esophageal disordersMycoses (20 sources)Mycosis; 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] Resolved: 46-08-7589GuqsdmauXdbmv bone disease and musculoskeletal deformities (9 sources)Somatic dysfunction of thoracic region; Translations: [Somatic dysfunction of thoracic region]Other bone disease and musculoskeletal deformities (9 sources)Somatic dysfunction of head region; Translations: [Somatic dysfunction of head region]Other complications of (20 sources)First trimester ; Translations: [Supervision of high-risk with history of infertility] Resolved: 24-21-4368KaenicxcVigqx female genital disorders (20 sources)H/O gynecological disorder; Translations: [Personal history of other genital system and obstetric disorders] Resolved: 04-90-6808CpeeohddMoerl female genital disorders (20 sources)H/O: amenorrhea; Translations: [Personal history of other genital system and obstetric disorders] Resolved: 38-28-6382NtqzhwgrRacvi gastrointestinal disorders (20 sources)Personal history of other diseases of the digestive system; Translations: [History of Crohns disease] Resolved: 03-39-2950YyzszswhPdtbn nervous system disorders (20 sources)Postoperative pain ; Translations: [Other acute postoperative pain] Resolved: 93-40-5370AzrxtgtfPexcekuhvmt; intervertebral disc disorders; other back problems (11 sources)Cervical radiculopathy; Translations: [Brachial neuritis or radiculitis NOS]98-60-9390OjwxuzegZhfzwwdifhjz (1 source)69374/N20.1Onset: 65-91-0047Ixveyebprgkl (20 sources)Patient encounter status; Translations: [History of In vitro fertilization]Unclassified (4 sources)Counseling for infertility done; Translations: [Infertility counseling]Unclassified (4 sources)Screening status; Translations: [Special screening examination for other specified chlamydial diseases]Unclassified (11 sources)Long-term current use of steroid; Translations: [Steroid long-term use]Unclassified (9 sources)Finding of scapular structure; Translations: [Scapular dyskinesis] Unclassified (9 sources)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; Translations: [Female infertility associated with male factors]Unclassified (20 sources)History of clinical finding in subject; Translations: [History of cough] Resolved: 17-05-2881BEFVFPA: Highlighted row has not occurred!Residual codes; unclassified (20 sources)DiseaseEpisodic Results Test NameValueInterpretationReference RangeFacilityBasophils Auto (Bld) [#/Vol] Ordered By: Angel Dorsey on 02-67-1361Gmbwmjocr (Bld) [#/Vol]0.1 10 3/uL0.0-0.1 [facility] HospitalBasophils/100 WBC Auto (Bld)Ordered By: Angel Dorsey on 32-78-5759Qnhqrztlt/100 WBC (Bld)0.8 %0.2-2.0[facility] HospitalCholesterol in LDL Calc [Mass/Vol]Ordered By: Aquiles Escobedo on 12-15-2024 Cholesterol in LDL [Mass/Vol]144.0 mg/dLLima Memorial HospitalComment on above:<100 mg/dl HMFGZKQ693-764 mg/dl NEAR OR ABOVE HIPWYFW554-806 mg/dl BORDERLINE JBGJ382-799 mg/dl HIGH>190 mg/dl VERY HIGHCholesterol in VLDL Calc [Mass/Vol]Ordered By: Aquiles Escobedo on 55-75-2456Bmsabannhfp in VLDL [Mass/Vol] 16.4 mg/dLLima Memorial HospitalEosinophils/100 WBC Auto (Bld)Ordered By: Angel Dorsey on 37-65-3917Uizjctkkiul/100 WBC (Bld)3.7 %0.9-7.0[facility] HospitalErythrocyte distribution width Auto (RBC) [Ratio]Ordered By: Angel Dorsey on 71-23-9816Jprowuzmkrb distribution width (RBC) [Ratio]13.2 % 11.0-15.0[facility] HospitalGlobulin Calc (S) [Mass/Vol]Ordered By: Angel Dorsey on 16-78-5282Mhwalugf (S) [Mass/Vol]3.3 g/dLLima Memorial HospitalGlomerular filtration rate (GFR) estimation in non- AmericanOrdered By: nAgel Dorsey on 02-10-7454VET/1.73 sq M.predicted among non- blacks MDRD (S/P/Bld) [Vol rate/Area]mL/min/{1.73_m2}>=60 mL/min/1.73m 2 [facility] HospitalHematocrit Auto (Bld) [Volume fraction]Ordered By: Angel Dorsey on 34-07-2727Vklhybbqol (Bld) [Volume fraction]38.8 %36.0-48.0 [facility] HospitalHemoglobin [Mass/volume] in BloodOrdered By: Angel Dorsey on 10-32-8963Qvtcmlqujr (Bld) [Mass/Vol]13.0 g/dL12.0-16.0[facility] HospitalLaboratory - Chemistry and Chemistry - challengeOrdered By: Angel Dorsey on 45-16-9402Qmwlqwf [Mass/Vol]3.6 g/dL3.4-5.0[facility] HospitalALP [Catalytic activity/Vol]49 U/I26-820SvhwdsapzLima Memorial HospitalALT [Catalytic activity/Vol]24 U/J61-79FvlfztywbL[facility] Hospital AST [Catalytic activity/Vol]14 U/JTjv67-04YquklunegLima Memorial Hospital Bilirubin [Mass/Vol]0.6 mg/dL0.2-1.0[facility] HospitalCalcium [Mass/Vol]8.5 mg/dL8.5-10.1FParkview Health Bryan HospitalChloride [Moles/Vol] 106 mmol/N65-081GguxymnsfLima Memorial HospitalCO2 [Moles/Vol]27.9 mmol/L 21.0-32.0[facility] HospitalCreatinine [Mass/Vol]0.59 mg/dL 0.55-1.02[facility] HospitalGFR/1.73 sq M.predicted MDRD (S/P/Bld) [Vol rate/Area]mL/min/{1.73_m2}>=60 mL/min/1.73m 2FParkview Health Bryan HospitalGlucose [Mass/Vol]94 mg/cY95-411WjqvvtzpdLima Memorial HospitalPotassium [Moles/Vol]4.0 mmol/L3.5-5.1FParkview Health Bryan HospitalProtein [Mass/Vol] 6.9 g/dL6.4-8.2FCleveland Clinic Avon Hospitalodium [Moles/Vol]141 mmol/L 136-145[facility] HospitalUrea nitrogen [Mass/Vol]19.0 mg/dLHigh 7.0-18.0[facility] HospitalUrea nitrogen/Creatinine [Mass ratio] 32.2 mg/mgLima Memorial HospitalLaboratory - Chemistry and Chemistry - challengeOrdered By: Aquiles Escobedo on 70-38-1296Adxrdohacrm [Mass/Vol]213 mg/dLHigh<=200[facility] HospitalCholesterol in HDL [Mass/Vol]53 mg/sT66-99YsirmbtbpLima Memorial HospitalComment on above:> or =60 mg/dl - LOW CARDIOVASCULAR RISK<40 mg/dl - HIGH CARDIOVASCULAR RISKTriglyceride [Mass/Vol] 82 mg/dL<=150[facility] HospitalTSH Qn4.973 m[IU]/LHigh0.358-3.740 [facility] HospitalLaboratory - Hematology and Cell countsOrdered By: Angel Dorsey on 60-16-6907Yuupkuyc granulocytes/100 WBC (Bld)0.3 %0.0-0.5 [facility] HospitalLeukocytes [#/volume] corrected for nucleated erythrocytes in Blood by Automated counOrdered By: Angel Dorsey on 34-16-8233TNB corrected for nucl RBC Auto (Bld) [#/Vol]7.3 10 3/uL4.0-11.0[facility] HospitalLymphocytes Auto (Bld) [#/Vol]Ordered By: Angel Dorsey on 12-15-2024 Lymphocytes (Bld) [#/Vol]1.6 10 3/uL1.2-3.8[facility] Lymphocytes/100 WBC Auto (Bld)Ordered By: Angel Dorsey on 12-15-2024 Lymphocytes/100 WBC (Bld)21.5 %20.5-60.0[facility] HospitalMCH Auto (RBC) [Entitic mass]Ordered By: Angel Dorsey on 86-31-9540BEI (RBC) [Entitic mass]30.2 pg26.7-34.0[facility] HospitalMCHC Auto (RBC) [Mass/Vol] Ordered By: Angel Dorsey on 00-49-7347QGDA (RBC) [Mass/Vol]33.5 g/dL29.9-35.2 [facility] HospitalMCV Auto (RBC) [Entitic vol]Ordered By: Angel Dorsey on 45-11-5676ARN (RBC) [Entitic vol]90.0 fL81.0-99.0[facility] HospitalMonocytes Auto (Bld) [#/Vol]Ordered By: Angel Dorsey on 12-15-2024 Monocytes (Bld) [#/Vol]0.5 10 3/uL0.3-0.8[facility] Monocytes/100 WBC Auto (Bld)Ordered By: Angel Dorsey on 22-80-2751Speqstewc/100 WBC (Bld)6.9 %1.7-12.0[facility] HospitalNeutrophils Auto (Bld) [#/Vol]Ordered By: Angel Dorsey on 69-43-9757Czxcdjukdvn (Bld) [#/Vol]4.8 10 3/uL 1.4-6.5FParkview Health Bryan HospitalNeutrophils/100 WBC Auto (Bld)Ordered By: Angel Dorsey on 88-03-9557Rnbhehgsjuz/100 WBC (Bld)66.8 %43.0-75.0[facility] HospitalNo Panel InformationOrdered By: Angel Dorsey on 12-15-2024 Eosinophils # (Auto)0.3 10 3/uL0.0-0.7FParkview Health Bryan HospitalImmature Granulocyte # (Auto)0.02 10 3/uL0.00-0.03[facility] Platelet mean volume Auto (Bld) [Entitic vol]Ordered By: Angel Dorsey on 85-89-4560Rwwflqev mean volume (Bld) [Entitic vol]11.4 fL9.5-13.5FParkview Health Bryan HospitalPlatelets Auto (Bld) [#/Vol]Ordered By: Angel Dorsey on 95-47-3558Voylzhykh (Bld) [#/Vol]246 10 3/kN504-750RyoerxgguLima Memorial HospitalRBC Auto (Bld) [#/Vol]Ordered By: Angel Dorsey on 46-43-9166WSJ (Bld) [#/Vol]4.31 10 6/uL4.20-5.40Marymount Hospitalerum or plasma albumin/globulin mass ratioOrdered By: Angel Dorsey on 45-78-7650Ponwbpc/Globulin [Mass ratio]1.1 {ratio}Marymount Hospitalerum or plasma anion gap determinationOrdered By: Angel Dorsey on 91-25-8570Nmgaf gap [Moles/Vol]11.1 mmol/LFCleveland Clinic Avon Hospitalerum or plasma total cholesterol/high density lipoprotein (HDL) cholesterol mass ratOrdered By: Aquiles Escobedo on 81-41-3518Denoaukxjkh.total/Cholesterol in HDL [Mass ratio]4.0 {ratio}[facility] HospitalComment on above:3.3 - 4.4 LOW RISK4.4 - 7.1 AVERAGE RISK7.1 - 11.0 MODERATE RISK>11.0 HIGH RISKBasophils Auto (Bld) [#/Vol]on 78-68-5465Sfmhhciyr (Bld) [#/Vol]0.1 10 3/uL0.0-0.1FParkview Health Bryan HospitalBasophils/100 WBC Auto (Bld)on 49-52-3472Kqlyjoirp/100 WBC (Bld)0.8 % 0.2-2.0[facility] HospitalCholesterol in LDL Calc [Mass/Vol]on 96-09-1838Lljmjvvnaly in LDL [Mass/Vol]149.0 mg/dLLima Memorial HospitalComment on above:<100 mg/dl NOLPRRT170-443 mg/dl NEAR OR ABOVE TZJBQHL724- 159 mg/dl BORDERLINE JYIY271-360 mg/dl HIGH>190 mg/dl VERY HIGHCholesterol in VLDL Calc [Mass/Vol]on 59-72-0267Ecknxnndhwz in VLDL [Mass/Vol]12.8 mg/dL [facility] HospitalEosinophils/100 WBC Auto (Bld)on 11-26-2023 Eosinophils/100 WBC (Bld)2.4 %0.9-7.0[facility] Erythrocyte distribution width Auto (RBC) [Ratio]on 39-14-1944Moihifsylpv distribution width (RBC) [Ratio]12.7 %11.0-15.0[facility] Estimated glomerular filtration rate (GFR) non- Americanon 11-26-2023 GFR/1.73 sq M.predicted among non-blacks MDRD (S/P/Bld) [Vol rate/Area] mL/min/{1.73_m2}>=60[facility] HospitalGlobulin Calc (S) [Mass/Vol]on 23-89-7385Weunadto (S) [Mass/Vol]3.0 g/dLLima Memorial HospitalGlucose mean value [Mass/volume] in Blood Estimated from glycated hemoglobinon 75-70-9969Syszfqf glucose Estimated from glycated hemoglobin (Bld) [Mass/Vol]94 mg/dLLima Memorial HospitalHematocrit Auto (Bld) [Volume fraction]on 95-55-6824Brppqcbeob (Bld) [Volume fraction]40.5 %36.0-48.0 [facility] HospitalHemoglobin [Mass/volume] in Bloodon 11-26-2023 Hemoglobin (Bld) [Mass/Vol]13.6 g/dL12.0-16.0[facility] Laboratory - Chemistry and Chemistry - challengeon 47-49-0730Tzpescl [Mass/Vol] 3.6 g/dL3.4-5.0[facility] HospitalALP [Catalytic activity/Vol]58 U/X32-023BywhigjclLima Memorial HospitalALT [Catalytic activity/Vol]23 U/L 14-59[facility] HospitalAST [Catalytic activity/Vol]15 U/L15-37 [facility] HospitalBilirubin [Mass/Vol]0.5 mg/dL0.2-1.0[facility] HospitalCalcium [Mass/Vol]8.7 mg/dL8.5-10.1FParkview Health Bryan HospitalChloride [Moles/Vol]103 mmol/N48-385GoappprujLima Memorial HospitalCholesterol [Mass/Vol]226 mg/dLHigh<=200[facility] Cholesterol in HDL [Mass/Vol]65 mg/xFYjmq74-54QdeuogezhLima Memorial Hospital Comment on above:> or =60 mg/dl - LOW CARDIOVASCULAR RISK<40 mg/dl - HIGH CARDIOVASCULAR RISKCO2 [Moles/Vol]26.9 mmol/L21.0-32.0[facility] HospitalCreatinine [Mass/Vol]0.61 mg/dL0.55-1.02[facility] GFR/1.73 sq M.predicted MDRD (S/P/Bld) [Vol rate/Area]mL/min/{1.73_m2}>=60 [facility] HospitalGlucose [Mass/Vol]93 mg/iL33-720YdmlmvlptLima Memorial HospitalPotassium [Moles/Vol]4.1 mmol/L3.5-5.1FParkview Health Bryan HospitalProtein [Mass/Vol]6.6 g/dL6.4-8.2FParkview Health Bryan Hospital Sodium [Moles/Vol]139 mmol/M502-216XvsiivadfLima Memorial HospitalTriglyceride [Mass/Vol]64 mg/dL<=150[facility] HospitalTSH Qn3.032 m[IU]/L 0.358-3.740[facility] HospitalUrea nitrogen [Mass/Vol]16.0 mg/dL 7.0-18.0[facility] HospitalUrea nitrogen/Creatinine [Mass ratio] 26.2 mg/mgLima Memorial HospitalLaboratory - Hematology and Cell countson 96-05-8682FdU1d (Bld) [Mass fraction]4.9 %4.5-6.2FParkview Health Bryan HospitalComment on above:ADA RECOMMENDED LIMIT 4.0 - 6.0ADA THERAPEUTIC TARGET < 7.0ACTION SUGGESTED> 7.0Immature granulocytes/100 WBC (Bld)0.2 %0.0-0.5 [facility] HospitalLeukocytes [#/volume] corrected for nucleated erythrocytes in Blood by Automated counon 65-95-4978ZLK corrected for nucl RBC Auto (Bld) [#/Vol]8.3 10 3/uL4.0-11.0[facility] Lymphocytes Auto (Bld) [#/Vol]on 72-19-0223Ehjjqomhgeu (Bld) [#/Vol]1.6 10 3/uL 1.2-3.8[facility] HospitalLymphocytes/100 WBC Auto (Bld)on 32-50-6652Billehdydnb/100 WBC (Bld)19.0 %Low20.5-60.0[facility] CenterH Auto (RBC) [Entitic mass]on 26-51-2905BMB (RBC) [Entitic mass]30.6 pg 26.7-34.0[facility] HospitalMCHC Auto (RBC) [Mass/Vol]on 76-07-9300EKSW (RBC) [Mass/Vol]33.6 g/dL29.9-35.2FParkview Health Bryan HospitalMCV Auto (RBC) [Entitic vol]on 30-67-5259XIM (RBC) [Entitic vol]91.2 fL 81.0-99.0[facility] HospitalMonocytes Auto (Bld) [#/Vol]on 67-71-2153Mausatfos (Bld) [#/Vol]0.4 10 3/uL0.3-0.8[facility] HospitalMonocytes/100 WBC Auto (Bld)on 95-87-2723Btnhlmmoh/100 WBC (Bld)5.2 % 1.7-12.0[facility] HospitalNeutrophils Auto (Bld) [#/Vol]on 74-24-2045Fhtobroinjj (Bld) [#/Vol]6.0 10 3/uL1.4-6.5FParkview Health Bryan HospitalNeutrophils/100 WBC Auto (Bld)on 89-85-9673Uzoqfgxyimb/100 WBC (Bld)72.4 % 43.0-75.0[facility] HospitalNo Panel Informationon 11-26-2023 Eosinophils # (Auto)0.2 10 3/uL0.0-0.7FParkview Health Bryan HospitalImmature Granulocyte # (Auto)0.02 10 3/uL0.00-0.03[facility] Platelet mean volume Auto (Bld) [Entitic vol]on 30-18-8112Lfuwatwe mean volume (Bld) [Entitic vol]10.3 fL9.5-13.5FParkview Health Bryan HospitalPlatelets Auto (Bld) [#/Vol]on 79-22-9812Oisqpxsoi (Bld) [#/Vol]248 10 3/sY071-158 [facility] HospitalRBC Auto (Bld) [#/Vol]on 62-32-8987WNR (Bld) [#/Vol]4.44 10 6/uL4.20-5.40Mary[facility] Hospitalerum or plasma albumin/globulin mass ratioon 24-00-6984Dtwcpak/Globulin [Mass ratio]1.2 {ratio} [facility] Hospitalerum or plasma anion gap determinationon 64-70-8248Gjwrb gap [Moles/Vol]13.2 mmol/LFCleveland Clinic Avon Hospitalerum or plasma total cholesterol/high density lipoprotein (HDL) cholesterol mass rat on 71-23-9531Ounvfksktjz.total/Cholesterol in HDL [Mass ratio]3.5 {ratio} [facility] HospitalComment on above:3.3 - 4.4 LOW RISK4.4 - 7.1 AVERAGE RISK7.1 - 11.0 MODERATE RISK>11.0 HIGH RISKComplete Blood Count Auto Diffon 52-50-1112Dxjfhtrqb (Bld) [#/Vol]0.1 10*3/uLNormal0.0-0.2FParkview Health Bryan HospitalComment on above:Order Comment: Comment Draw at 630 am Result Comment: PERFORMED BY: [facility] [address] [place] [address] PATHOLOGIST FLASH RANGING CREWMEMBER RENETTA CASE M.D.Performed By: #### CBC #### [facility] [address] [place] [address] USABasophils/100 WBC (Bld)0.6 %Normal.[facility] HospitalComment on above:Order Comment: Comment Draw at 630 amPerformed By: #### CBC #### [place] [address] USAEosinophils (Bld) [#/Vol]0.1 10*3/uLNormal0.0-0.45 [facility] HospitalComment on above:Order Comment: Comment Draw at 630 amPerformed By: #### CBC #### [place] [address] USAEosinophils/100 WBC (Bld)1.1 %Normal.[facility] HospitalComment on above:Order Comment: Comment Draw at 630 amPerformed By: #### CBC #### [place] [address] USAErythrocyte distribution width (RBC) [Ratio]14.4 %Normal 11.9-15.3FParkview Health Bryan HospitalComment on above:Order Comment: Comment Draw at 630 amPerformed By: #### CBC #### [place] [address] USAHematocrit (Bld) [Volume fraction]32.8 %Low34.0-46.4 [facility] HospitalComment on above:Order Comment: Comment Draw at 630 amPerformed By: #### CBC #### [place] [address] USAHemoglobin (Bld) [Mass/Vol]10.9 g/dLLow11.8-15.4FParkview Health Bryan HospitalComment on above:Order Comment: Comment Draw at 630 am Performed By: #### CBC #### [place] [address] USALymphocytes (Bld) [#/Vol]1.4 10*3/uLNormal1.00-4.8 [facility] HospitalComment on above:Order Comment: Comment Draw at 630 amPerformed By: #### CBC #### [facility] [address] [place] [place] [id number] USALymphocytes/100 WBC (Bld)14.2 %Normal.[facility] HospitalComment on above:Order Comment: Comment Draw at 630 amPerformed By: #### CBC #### [facility] [address] [place] [id number] [facility] CITYH (RBC) [Entitic mass]29.6 wyPeuiwu51.7-34.3FParkview Health Bryan HospitalComment on above:Order Comment: Comment Draw at 630 am Performed By: #### CBC #### [facility] [address] [place] [address] USAV (RBC) [Entitic vol]88.8 eQBvvgto91-292LkjwlmimzLima Memorial HospitalComment on above:Order Comment: Comment Draw at 630 am Performed By: #### CBC #### [facility] [address] [place] [address] USAMean Corpuscular HGB Conc33.4 g/xEWwivpn62.0-35.0[facility] HospitalComment on above:Order Comment: Comment Draw at 630 am Performed By: #### CBC #### [address] [address] USAMonocytes (Bld) [#/Vol]0.5 10*3/uLNormal0.0-0.8[facility] HospitalComment on above:Order Comment: Comment Draw at 630 am Performed By: #### CBC #### [facility] [address] [place], [place] [id number] USAMonocytes/100 WBC (Bld)5.3 %Normal.[facility] HospitalComment on above:Order Comment: Comment Draw at 630 amPerformed By: #### CBC #### [place] [address] USANeutrophils (Bld) [#/Vol]7.7 10*3/uLNormal1.8-7.7FParkview Health Bryan HospitalComment on above:Order Comment: Comment Draw at 630 am Performed By: #### CBC #### [facility] [address] [place] [address] USANeutrophils/100 WBC (Bld)78.8 %Normal.[facility] HospitalComment on above:Order Comment: Comment Draw at 630 amPerformed By: #### CBC #### [facility] [address] [place] [id number] USANRBC%0.1 /100{WBC}Normal0-0.5FParkview Health Bryan HospitalComment on above:Order Comment: Comment Draw at 630 amPerformed By: #### CBC #### [facility] [address] [place] [address] USAPlatelet mean volume (Bld) [Entitic vol]11.6 fLHigh 6.3-10.7FParkview Health Bryan HospitalComment on above:Order Comment: Comment Draw at 630 amPerformed By: #### CBC #### [facility] [address] [place] [address] USAPlatelets (Bld) [#/Vol]149 10*3/cYQyh952-867GoqzbzicjLima Memorial HospitalComment on above:Order Comment: Comment Draw at 630 am Performed By: #### CBC #### [facility] [address] [place] [address] USARBC (Bld) [#/Vol]3.69 10*6/uLNormal3.60-5.00[facility]ima Memorial HospitalComment on above:Order Comment: Comment Draw at 630 am Performed By: #### CBC #### [facility] [address] [place] [address] USAWBC (Bld) [#/Vol]9.7 10*3/uLNormal3.8-11.6FParkview Health Bryan HospitalComment on above:Order Comment: Comment Draw at 630 am Performed By: #### CBC #### [facility] [address] [place] [address] USAABO/Rh Retypeon 02-78-9081JZC/RH Recheck ResultPositive NormalLima Memorial HospitalComment on above:Result Comment: PERFORMED BY: [place] [address] PATHOLOGIST FLASH RANGING CREWMEMBER RENETTA CASE M.D.Complete Blood Count Auto Diffon 46-66-5140Kokoobhkh (Bld) [#/Vol]0.1 10*3/uLNormal0.0-0.2FParkview Health Bryan HospitalComment on above:Result Comment: PERFORMED BY: [place] [address] PATHOLOGIST FLASH RANGING CREWMEMBER RENETTA CASE M.D.Performed By: #### CBC #### [facility] [address] [place] [address] #### RPR W RFX #### [facility] ,Basophils/100 WBC (Bld)0.8 %Normal.Lima [facility] HospitalComment on above:Performed By: #### CBC #### [facility] [address] [place] [address] [place] #### RPR W RFX #### [facility] ,Eosinophils (Bld) [#/Vol]0.1 10*3/uLNormal0.0-0.45Lima [facility] HospitalComment on above:Performed By: #### CBC #### [address] #### RPR W RFX #### [facility] ,Eosinophils/100 WBC (Bld)1.4 %Normal.Lima [facility] HospitalComment on above:Performed By: #### CBC #### [facility] [address] [place] [address] [place] #### RPR W RFX #### [facility] ,Erythrocyte distribution width (RBC) [Ratio]14.7 %Bnivll33.9-15.3FParkview Health Bryan HospitalComment on above:Performed By: #### CBC #### [facility] [address] [place] [address] [place] #### RPR W RFX #### [facility] ,Hematocrit (Bld) [Volume fraction]33.3 %Low34.0-46.4FParkview Health Bryan HospitalComment on above:Performed By: #### CBC #### [facility] [address] [place] [address] #### RPR W RFX #### [facility] ,Hemoglobin (Bld) [Mass/Vol]11.2 g/dLLow11.8-15.4FParkview Health Bryan HospitalComment on above:Performed By: #### CBC #### [facility] [address] [place] [address] #### RPR W RFX #### [facility] ,Lymphocytes (Bld) [#/Vol]1.6 10*3/uLNormal1.00-4.8Lima [facility] HospitalComment on above:Performed By: #### CBC #### [facility] [address] [place] [address] #### RPR W RFX #### [facility] ,Lymphocytes/100 WBC (Bld)16.0 %Normal.Lima Memorial HospitalComment on above:Performed By: #### CBC #### [address] #### RPR W RFX #### [facility] ,MCH (RBC) [Entitic mass]29.6 yiGouurn37.7-34.3FParkview Health Bryan Hospital Comment on above:Performed By: #### CBC #### [facility] [address] [place] [address] [place] #### RPR W RFX #### [facility] ,MCV (RBC) [Entitic vol]88.3 vWRpnsox44-264VwoabembrLima Memorial Hospital Comment on above:Performed By: #### CBC #### [facility] [address] [place] [address] [place] #### RPR W RFX #### [facility] ,Mean Corpuscular HGB Conc33.5 g/gBHpxbpw25.0-35.0Lima Memorial HospitalComment on above:Performed By: #### CBC #### [facility] [address] [place] [address] #### RPR W RFX #### [facility] ,Monocytes (Bld) [#/Vol]0.7 10*3/uLNormal0.0-0.8Lima Memorial HospitalComment on above:Performed By: #### CBC #### [facility] [address] [place] [address] #### RPR W RFX #### [facility] ,Monocytes/100 WBC (Bld)7.1 %Normal.Lima Memorial HospitalComment on above:Performed By: #### CBC #### [facility] [address] [place] [address] #### RPR W RFX #### [facility] ,Neutrophils (Bld) [#/Vol]7.5 10*3/uLNormal1.8-7.7FParkview Health Bryan HospitalComment on above:Performed By: #### CBC #### [facility] [address] [place] [address] #### RPR W RFX #### [facility] ,Neutrophils/100 WBC (Bld)74.7 %Normal.Lima Memorial HospitalComment on above:Performed By: #### CBC #### [facility] [address] [place] [address] #### RPR W RFX #### [facility] ,NRBC%0.1 /100{WBC}Normal0-0.5FParkview Health Bryan HospitalComment on above: Performed By: #### CBC #### [facility] [address] [place] [address] [place] #### RPR W RFX #### [facility] ,Platelet mean volume (Bld) [Entitic vol]11.5 fLHigh6.3-10.7FParkview Health Bryan HospitalComment on above:Performed By: #### CBC #### [facility] [address] [place] [address] #### RPR W RFX #### [facility] ,Platelets (Bld) [#/Vol]171 10*3/kPMqpaht457-145AypscpbcjLima Memorial HospitalComment on above:Performed By: #### CBC #### [facility] [address] [place] [address] #### RPR W RFX #### [facility] ,RBC (Bld) [#/Vol]3.77 10*6/uLNormal3.60-5.00[facility] Comment on above:Performed By: #### CBC #### [facility] [address] [place] [address] #### RPR W RFX #### [facility] ,WBC (Bld) [#/Vol]10.0 10*3/uLNormal3.8-11.6FParkview Health Bryan Hospital Comment on above:Performed By: #### CBC #### [facility] [address] [place] [address] #### RPR W RFX #### [facility] ,Dipstick and Microscopicon 77-66-0720Lxmdweblpq (U)CloudyCritically abnormal [facility] HospitalComment on above:Order Comment: Name Collection Type:: Clean-Voided MidstreamPerformed By: #### DEMETRIUS FANGPLUS #### [place] [address] USABacteria,UrineNone SeenNormalNone [facility] HospitalComment on above:Order Comment: Name Collection Type:: Clean- Voided MidstreamPerformed By: #### EMILY FANGUAPLUS #### [place] [address] USABilirubin,Urine1+HighNegativeLima Memorial HospitalComment on above:Order Comment: Name Collection Type:: Clean-Voided MidstreamPerformed By: #### OBUDS, ADDONUAPLUS #### [place] [address] USACalcium Oxalate Crystals,Urine2+NormalLima Memorial HospitalComment on above:Order Comment: Name Collection Type:: Clean- Voided MidstreamPerformed By: #### OBUDS, ADDONUAPLUS #### [place] [address] USAColor (U)Dark YellowCritically abnormalYellowLima Memorial HospitalComment on above:Order Comment: Name Collection Type:: Clean-Voided MidstreamPerformed By: #### OBUDS, ADDONUAPLUS #### [place] [address] USAGlucose Ql (U)NormalNormalNormalLima Memorial HospitalComment on above:Order Comment: Name Collection Type:: Clean-Voided MidstreamPerformed By: #### OBUDS, ADDONUAPLUS #### [place] [address] USAHyaline Casts,Vkmtw0-8Jndzjx1-7JljatxzifLima Memorial HospitalComment on above:Order Comment: Name Collection Type:: Clean-Voided MidstreamResult Comment: PERFORMED BY: [place] [address] PATHOLOGIST FLASH RANGING CREWMEMBER RENETTA CASE M.D.Performed By: #### OBUDS, ADDONUAPLUS #### [place] [address] USAKetones Ql (U)TraceHighNegativeLima Memorial HospitalComment on above:Order Comment: Name Collection Type:: Clean-Voided MidstreamPerformed By: #### OBUDS, ADDONUAPLUS #### [place] [id number] USALeukocyte esterase Test strip Ql (U)1+HighNegative Lima Memorial HospitalComment on above:Order Comment: Name Collection Type:: Clean-Voided MidstreamPerformed By: #### OBUDS, ADDONUAPLUS #### [place] [address] USANitrite,UrineNegativeNormalNegSycamore Medical CenterComment on above:Order Comment: Name Collection Type:: Clean- Voided MidstreamPerformed By: #### OBUDS, ADDONUAPLUS #### [place] [address] USAOccult Blood,UrineNegativeNormkyNegSycamore Medical CenterComment on above:Order Comment: Name Collection Type:: Clean- Voided MidstreamResult Comment: PERFORMED BY: [place] [address] PATHOLOGIST FLASH RANGING CREWMEMBER RENETTA CASE M.D.Performed By: #### OBUDS, ADDONUAPLUS #### [place] [address] USAOthe Crystals,UrineNone SeenNoGalion HospitalComment on above:Order Comment: Name Collection Type:: Clean- Voided MidstreamPerformed By: #### OBUDS, ADDONUAPLUS #### [place] [address] USApH (U)6.5 [pH]Normal5.0-9.0Lima Memorial HospitalComment on above:Order Comment: Name Collection Type:: Clean-Voided MidstreamPerformed By: #### OBUDS, ADDONUAPLUS #### [place] [address] USAProtein (U) [Mass/Vol]30 mg/dLHighNegSycamore Medical CenterComment on above:Order Comment: Name Collection Type:: Clean-Voided MidstreamPerformed By: #### OBUDS, ADDONUAPLUS #### [place] [address] USARBC,UrineNone SeenNormal0-4FParkview Health Bryan HospitalComment on above:Order Comment: Name Collection Type:: Clean-Voided MidstreamPerformed By: #### OBDOUG ADDONUAPLUS #### [facility] [address] [place] [address] USASpecificy Brashear,Urine1.724Uxki1.001-1.030Lima Memorial HospitalComment on above:Order Comment: Name Collection Type:: Clean-Voided MidstreamPerformed By: #### OBUDS, ADDONUAPLUS #### [facility] [address] [place] [address] USASquamous Epithelial Cell,Nnisv3-7Yncj7-6XccdsxxqbParkview Health Bryan HospitalComment on above:Order Comment: Name Collection Type:: Clean- Voided MidstreamPerformed By: #### OBDOUG, ADDONUAPLUS #### [place] [address] USAUrobilinogen,UrineNormalNormalNormTrinity Health SystemComment on above:Order Comment: Name Collection Type:: Clean- Voided MidstreamPerformed By: #### OBDOUG ADDONUAPLUS #### [place] [address] USAWBC,Hwscx8-8Lchuae6-9WqcrggumiParkview Health Bryan Hospital Comment on above:Order Comment: Name Collection Type:: Clean-Voided Midstream Performed By: #### OBUDS, ADDONUAPLUS #### [facility] [address] [place] [address] USAOB Urine Drug Screen (NO THC)on 80-51-3990Fwyevwdclpo Screen,UrineNegativeNormalNegSycamore Medical CenterComment on above:Performed By: #### OBUDS, ADDONUAPLUS #### [place] [address] USABarbiturate Screen,UrineNegativeNormalNegSycamore Medical CenterComment on above:Performed By: #### OBUDS, ADDONUAPLUS #### [place] [address] USABenzodiazepines Screen,UrineNegativeNormalNegative [facility] HospitalComment on above:Performed By: #### NAGA FANGONUAPLUS #### [place] [address] USACocaine Screen,UrineNegativeNormalNegativeLima Memorial HospitalComment on above:Performed By: #### ANNALISA ADDONUAPLUS #### [place] [address] USAOpiate Screen,UrineNegativeNormkyNegativeLima Memorial HospitalComment on above:Performed By: #### NAGA FANGONUAPLUS #### [place] [address] USAPhencyclidine Screen, UrineNegativeNormkyNegativeLima Memorial HospitalComment on above:Result Comment: These are unconfirmed results and should not be used for legal purposes. Drug Cut-Off Concentration: AMPH 1000 ng/mL GUILHERME 200 ng/mL SOM 200 ng/mL COCM 300 ng/mL OP 300 ng/mL PCP 25 ng/mL PERFORMED BY: [place] [address] PATHOLOGIST FLASH RANGING CREWMEMBER RENETTA CASE M.D.Performed By: #### EMILY FANGUAPLUS #### [place] [address] USARPR w/rfx to Quant TP Abson 70-35-3938TFT, Rfx Quant RPR Non-ReactiveNormalNon ReactiveLima Memorial HospitalComment on above: Result Comment: Performed at: - [facility], [place], [place] [id number] Lint Cleaner: Shad Velez PhD, Phone: [phone] PERFORMED BY: [place] [address] PATHOLOGIST FLASH RANGING CREWMEMBER RENETTA CASE M.D.Performed By: #### CBC #### [place] [address] [place] #### RPR W RFX #### [facility] ,Type and Screenon 08-35-4824ZPH and Rh group Nom (Bld)Blood group A Rh(D) positiveNormTrinity Health SystemComment on above:Result Comment: PERFORMED BY: [place] [address] PATHOLOGIST FLASH RANGING CREWMEMBER RENETTA CASE M.D.Strep B Cultureon [id number] B CultureReason for Exam 35 weeks gestation of ; screening for stre Vaginal/Rectal Strep B Only Cult No Group B Beta Streptococcus Isolated 3 Days PERFORMED BY: [place] [address] PATHOLOGIST FLASH RANGING CREWMEMBER RENETTA CASE M.D.NormalLima Memorial HospitalComment on above: Performed By: #### CUSTB #### [place] [address] USAFREE T4on 71-25-8824Whmi T4 [Mass/Vol]0.94 ng/dLNormal 0.76-1.46[facility] HospitalComment on above:Performed By: #### CBC #### [facility] [address] [place] [address] Dr. Jose Villafuerte 16-43-7549EQP3.003 uIU/mLNormal0.358-3.740[facility] HospitalComment on above:Performed By: #### TSH #### [facility] [address] [place] [address] Dr. Jose Barrios T4on 86-99-5314Yamy T4 [Mass/Vol]0.91 ng/dLNormal0.76-1.46 [facility] HospitalComment on above:Performed By: #### CBC #### [facility] [address] [place] [address] Dr. Jose HolleyGLUCOSE - 1HRon 29-41-2000Akusoyi [Mass/Vol]106 mg/wJTiblqb96-774 [facility] HospitalComment on above:Performed By: #### GLU1HR #### [facility] [address] [place] [address] Dr. Jose HolleyHEMOGLOBIN AND HEMATOCRITon 85-39-7605Jchdledplo (Bld) [Volume fraction]35.9 %Critically low36.0-48.0The [facility]ron Generalment on above: Performed By: #### CBC #### [facility] [address] [place] [address] Dr. Jose HolleyHemoglobin (Bld) [Mass/Vol]12.1 g/mADlqzsf46.0-16.0The [facility] Memorial HospitalComment on above:Performed By: #### CBC #### [facility] [address] [place] [address] Dr. Jose Villafuerte 86-87-6143UQE2.520 uIU/mLNormal0.358-3.740The [facility] Memorial HospitalComment on above:Performed By: #### TSH #### [facility] [address] [place] [address] Dr. Jose Barrios T4on 82-21-7682Xajl T4 [Mass/Vol]1.08 ng/dLNormal0.76-1.46 The [facility] Memorial HospitalComment on above:Performed By: #### CBC #### [facility] [address] [place] [address] Dr. Jose Villafuerte 82-94-6596DCX7.371 uIU/mLNormal0.358-3.740The [facility] HospitalCommclaren northern [place] on above:Performed By: #### TSH #### [facility] [address] [place] [address] Dr. Jose Martell B SURFACE ANTIGEN SCREENon 34-11-4617DBvGi ScreenNegative NormalNegativeThe [facility] on above:Performed By: #### CBC #### [facility] [address] [place] [address] Dr. Jose Rodriguez 1 AND 2 WITH REFLEXon 37-81-7589FFX Screen 4th Generation wRfxNon-ReactiveNormalNon ReactiveThe [facility] Clinic [facility] Generalment on above:Result Comment: HIV Negative HIV-1/HIV-2 antibodies and HIV-1 p24 antigen were NOT detected. There is no laboratory evidence of HIV infection.Performed By: #### HIV12 #### [facility] [address] [place] [address] Dr. Jose HammR QUANTon 97-96-7163Krnbb Plasma Reagin, QuantNon-Reactive NormalNonRea<1:1The [facility] Memorial HospitalComment on above:Result Comment: Please Note: This test does not meet current guidelines for screening and diagnosis of syphilis. This test is intended for following treatment response in patients being treated for syphilis infection. To screen for syphilis infection, a reflex cascade that includes both RPR and a treponema-specific assay should be utilized, such as Treponema pallidum (Syphilis) Screening [place] (317193) or Rapid Plasma Reagin (RPR) Test With Reflex to Quantitative RPR and Confirmatory Treponema pallidum Antibodies (373756).Performed By: #### CBC #### [facility] [address] [place] [address] Dr. Jose Bowman AB IGGon 59-20-5775Fxardyb Antibodies, IgG25.80 index NormalImmune >0.99The [facility] Memorial HospitalComment on above:Result Comment: Non- immune <0.90 Equivocal 0.90 - 0.99 Immune >0.99Performed By: #### RUBIGG #### [facility] [address] [place] [address] Dr. Jose Pitts AUTO DIFFon 73-44-1722CFTS #0.1 103/ulNormal0.0-0.1The [facility] Memorial HospitalComment on above:Performed By: #### CBC #### [facility] [address] [place] [address] Dr. Jose HolleyBasophils/100 WBC (Bld)0.5 %Normal0.2-2.0The [facility] Comment on above:Performed By: #### CBC #### [facility] [address] [place] [address] Dr. Garcia ChangEO #0.2 103/ulNormal0.0-0.7The [facility] Memorial HospitalComment on above: Performed By: #### CBC #### [facility] [address] [place] [address] [address] Jose Mendozaosinophils/100 WBC (Bld)2.1 %Normal0.9-7.0The [facility] Comment on above:Performed By: #### CBC #### [facility] [address] [place] [address] Dr. Jose Mendozarythrocyte distribution width (RBC) [Ratio]12.6 %Mwtdqs09.0-15.0 The [facility] Memorial HospitalComment on above:Performed By: #### CBC #### [facility] [address] [place] [address] Dr. Jose HolleyHematocrit (Bld) [Volume fraction]41.5 %Xcfnee18.0-48.0The [facility] Memorial HospitalComment on above:Performed By: #### CBC #### [facility] [address] [place] [address] Dr. Jose HolleyHemoglobin (Bld) [Mass/Vol]14.0 g/hQEwdjtg66.0-16.0The [facility] HospitalComment on above:Performed By: #### CBC #### [facility] [address] [place] [address] Dr. Jose Wilcox #0.08 10e3/ulCritically high0.00-0.03The [facility] Comment on above:Performed By: #### CBC #### [facility] [address] [place] [address] Dr. Jose Wilcox %0.7 %Critically high0.0-0.5The [facility] Memorial HospitalComment on above:Performed By: #### CBC #### [facility] [address] [place] [address] Dr. Jose EvansH #2.0 103/ulNormal1.2-3.8The [facility] Memorial HospitalComment on above:Performed By: #### CBC #### [facility] [address] [place] [address] Dr. Jose Eppersonmphocytes/100 WBC (Bld)18.5 %Critically low20.5-60.0The [facility] HospitalComment on above:Performed By: #### CBC #### [facility] [address] [place] [address] Dr. Jose Morfin DIFF REQNONormalThe [facility] Memorial HospitalComment on above: Performed By: #### CBC #### [facility] [address] [place] [address] Dr. Jose Forte (RBC) [Entitic mass]31.3 avFbrvbs32.7-34.0The [facility] HospitalComment on above:Performed By: #### CBC #### [facility] [address] [place] [address] Dr. Jose Forte (RBC) [Mass/Vol]33.7 g/jXZkqxnk21.9-35.2The [facility] Memorial HospitalComment on above:Performed By: #### CBC #### [facility] [address] [place] [address] Dr. Jose Forte (RBC) [Entitic vol]92.8 rINjuhas29.0-99.0The [facility] Memorial HospitalComment on above:Performed By: #### CBC #### [facility] [address] [place] [address] Dr. Jose Velazquez #0.5 103/ulNormal0.3-0.8The [facility] Memorial HospitalComment on above:Performed By: #### CBC #### [facility] [address] [place] [address] Dr. Jose Shaverocytes/100 WBC (Bld)4.7 %Normal1.7-12.0[facility] Comment on above:Performed By: #### CBC #### [facility] [address] [place] [address] Dr. Jose Antunez #8.1 103/ulCritically high1.4-6.5The [facility] Comment on above:Performed By: #### CBC #### [facility] [address] [place] [address] Dr. Yilan ChangNeutrophils/100 WBC (Bld)73.5 %Prcnne76.0-75.0The [facility] HospitalComment on above:Performed By: #### CBC #### [facility] [address] [place] [address] Dr. Jose Dotylet mean volume (Bld) [Entitic vol]10.6 fLNormal9.5-13.5The [facility] HospitalComment on above:Performed By: #### CBC #### [facility] [address] [place] [address] Dr. Jose HolleyPLT261 103/qnKnickb129-453Zam [facility] HospitalComment on above: Performed By: #### CBC #### [facility] [address] [place] [address] Dr. Jose HollyeRBC4.47 106/ulNormal4.20-5.40The [facility] Memorial HospitalComment on above:Performed By: #### CBC #### [facility] [address] [place] [address] Dr. Jose HolleyWBC11.0 103/ulNormal4.0-11.0The [facility] HospitalComment on above:Performed By: #### CBC #### [facility] [address] [place] [address] Dr. Jose HolleyCULTURE URINEon 33-49-9927AQQGQNK URINECulture Observations: LIGHT GROWTH OF MIXED GENITAL LASHELL. NO POTENTIAL PATHOGENS SEEN.NormalThe [facility] HospitalComment on above:Performed By: #### CBC #### [facility] [address] [place] [address] Dr. Jose HolleyTYPE AND SCREENon 00-46-5267ERDA AND SCREENNegativeNormalThe [facility] HospitalComment on above:Performed By: #### CBC #### [facility] [address] [place] [address] Dr. Jose Cantu Panel Informationon 63-03-5329Kfxpyl click on the link to view the study giabcxTjxepaXB-NBCIK-Ndvxvs 310 IVF Work Phone: [phone]-SMCLG-MAC [address] [place] Work Phone: HCG, Beta Quantitativeon 21-26-7685MSR.beta subunit Qn 4018 m[IU]/tOVbqclktmEK-WOVLV-Mbreyj 310 IVF Work Phone: Comment on above:Low-level positive HCG results can be seen in early , in [place]- or post-menopausal females due to normal pituitary HCG production, or with analytic interference. Repeat testing in 48-72 hourscan aid in assessing for as results should double in this time period. FSH measurement isrecommended in [place]- or post-menopausal females as concurrent elevation of FSH can support pituitary production as the source of the HCG elevation.. Total HCG measurement is performed using the [employer] Access Immunoassay which detects intact HCG and free beta HCG subunit. This test is not indicated for use as a tumor marker. HCG testing is performed using a different test methodology at [facility] than other [facility]. Direct result comparison should only be made within the same method. REF VALUESNON FEMALE <5MALES <5Laboratory - Chemistry and Chemistry - challengeon [id number] NnNyoroivwBW-Pdsvxnrpce-Foorbxvi 2100 DO Work Phone: 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:TSH testing is performed using different testing methodology at [facility] than at other [facility]. Direct result comparisons should only be made within the same method. TSH Qn3.47 m[IU]/LSee DyhfuDC-RKRHD-Pkeoel 310 IVF Work Phone: Comment on above:Reference Range: 0.44 - 3.98 TSH testing is performed using different testing methodology at [facility] than at other system [facility]. 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 We will call you with results and further recommendations. Continue HyQvia 50 g monthly infusions as scheduled. Follow up in 6 months or sooner if symptoms worsen prior. By signing my name below, Daniela Palacios Scribe, attest that this documentation has been prepared under the direction and in the presence of Flakita Antonio MD. All medical record entries made by the Scribe were at my direction and personally dictated by me. Anselmo reviewed the chart and agree that the record accurately reflects my personal performance of the history, physical exam, discussion and plan. 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 Started HyQvia 50 g [...] patient started HyQvia 50 g monthly around May- June and she did notreturn for her 3 [...] (Z87.42) Resolved Date: Oct (more content not included)...NormalUH TouchworksHCG, Beta Quantitativeon 18-45-1490LNW.beta subunit Qn191 m[IU]/nVElgkansnZM-FNTFX-Atiwfq 310 IVF Work Phone: Comment on above:Low-level positive HCG results can be seen in early , in zulema- or post-menopausal females due to normal pituitary HCG production, or with analytic interference. Repeat testing in 48-72 hourscan aid in assessing for as results should double in this time period. FSH measurement isrecommended in zulema- or post-menopausal females as concurrent elevation of FSH can support pituitary production as the source of the HCG elevation.. Total HCG measurement is performed using the [employer] Access Immunoassay which detects intact HCG and free beta HCG subunit. This test is not indicated for use as a tumor marker. HCG testing is performed using a different test methodology at [facility] than other [facility]. Direct result comparison should only be made within the same method. 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 Progesterone testing is performed using a different test methodology at [facility] than other [facility]. Direct result comparison should only be made within the same method.REF VALUESMALE <0.2-0.8 FOLLICULAR PHASE <0.2-1.5 LUTEAL PHASE 7.4-15.4 POSTMENOPAUSAL <0.2-0.2 1ST TRIMESTER 12.0-84.0 2ND TRIMESTER 10.2-58.8 3RD TRIMESTER 46.5-160Estradiol, Serumon 86-39-7631A8 [Mass/Vol]348 pg/mL DS-PBWFS-Wgmrwm 310 IVF Work Phone: Comment on above:Estradiol measurement is performed using the [employer] Access Estradiol Immunoassay. Estradiol testing is performed using a different test methodology at [facility] than other system hospitals. Direct result comparison should only be made within the same method.REF VALUESFOLLICULAR PHASE 20-144MID CYCLE 64-357LUTEAL PHASE 56- 214POSTMENOPAUSE < 32PREPUBERTY < 20FEMALE 10-18Y 8-110MALE 10-18Y < 20ADULT MALE < 40Laboratory - Chemistry and Chemistry - challengeon 24-11-8039ZWV Qn1.77 m[IU]/LSee AnluhCK-AWDTU-Ksibwc 310 IVF Work Phone: Comment on above:Reference Range: 0.44 - 3.98 TSH testing is performed using different testing methodology at [facility] than at other [facility]. Direct result comparisons should only be made within the same method.No Panel Informationon 18-71-6956Lrxdns click on the link to view the study lpfcseIkujknZC-TRXSL-Dzwglg 310 IVF Work Phone: Progesterone, Serumon 73-51-3874Omwgjuxgynxy [Mass/Vol]0.1 ng/fFBO-QKSBV-Ogwqor 310 IVF Work Phone: Comment on above:Progesterone is performed using the [employer] Access Immunoassay. Progesterone testing is performed using a different test methodology at [facility] than other [facility]. Direct result comparison should only be made within the same method.REF VALUESMALE <0.2-0.8 FOLLICULAR PHASE <0.2-1.5 LUTEAL PHASE 7.4-15.4 POSTMENOPAUSAL <0.2-0.2 1ST TRIMESTER 12.0-84.0 2ND TRIMESTER 10.2-58.8 3RD TRIMESTER 46.5-160CBC AUTO DIFFon 89-80-8679SMPI #0.1 103/ulNormal0.0-0.1The [facility] HospitalComment on above:Performed By: #### CBC #### [facility] [address] [place] [address] Dr. Jose HolleyBasophils/100 WBC (Bld)0.8 %Normal0.2-2.0The [facility] Comment on above:Performed By: #### CBC #### [facility] [address] [place] [address] Dr. Jose Gilliland #0.1 103/ulNormal0.0-0.7The [facility] HospitalComment on above: Performed By: #### CBC #### [facility] [address] [place] [address] Dr. Jose Mendozaosinophils/100 WBC (Bld)0.9 %Normal0.9-7.0The [facility] Comment on above:Performed By: #### CBC #### [facility] [address] [place] [address] Dr. Jose Mendozarythrocyte distribution width (RBC) [Ratio]13.9 %Ixkdcp46.0-15.0 The [facility] HospitalComment on above:Performed By: #### CBC #### [facility] [address] [place] [address] Dr. Jose HolleyHematocrit (Bld) [Volume fraction]41.8 %Kkdojv34.0-48.0The [facility] HospitalComment on above:Performed By: #### CBC #### [facility] [address] [place] [address] Dr. Jose HolleyHemoglobin (Bld) [Mass/Vol]14.0 g/pJPikdwa40.0-16.0The [facility] HospitalComment on above:Performed By: #### CBC #### [facility] [address] [place] [address] Dr. Jose Wilcox #0.02 10e3/ulNormal0.00-0.03The [facility] HospitalComment on above:Performed By: #### CBC #### [facility] [address] [place] [address] Dr. Jose Wilcox %0.2 %Normal0.0-0.5The [facility] HospitalComment on above: Performed By: #### CBC #### [facility] [address] [place] [address] Dr. Jose Purvis #1.7 103/ulNormal1.2-3.8The [facility] HospitalComment on above:Performed By: #### CBC #### [facility] [address] [place] [address] Dr. Jose Evanshocytes/100 WBC (Bld)19.9 %Critically low20.5-60.0The [facility] HospitalComment on above:Performed By: #### CBC #### [facility] [address] [place] [address] Dr. Jose Morfin DIFF REQNONormalThe [facility] HospitalComment on above: Performed By: #### CBC #### [facility] [address] [place] [address] Dr. Jose Dumont (RBC) [Entitic mass]30.7 qjBycusj90.7-34.0The [facility] HospitalComment on above:Performed By: #### CBC #### [facility] [address] [place] [address] Dr. Jose Forte (RBC) [Mass/Vol]33.5 g/vBEmsonr07.9-35.2The [facility] HospitalComment on above:Performed By: #### CBC #### [facility] [address] [place] [address] Dr. Jose Forte (RBC) [Entitic vol]91.7 vKStskbs87.0-99.0The [facility] HospitalComment on above:Performed By: #### CBC #### [facility] [address] [place] [address] Dr. Jose Velazquez #0.6 103/ulNormal0.3-0.8The [facility] HospitalComment on above:Performed By: #### CBC #### [facility] [address] [place] [address] Dr. Jose Shaverocytes/100 WBC (Bld)6.5 %Normal1.7-12.0The [facility] Comment on above:Performed By: #### CBC #### [facility] [address] [place] [address] Dr. Jose PopeUT #6.2 103/ulNormal1.4-6.5The [facility] HospitalComment on above:Performed By: #### CBC #### [facility] [address] [place] [address] Dr. Jose Popeutrophils/100 WBC (Bld)71.7 %Ompity92.0-75.0The [facility] HospitalComment on above:Performed By: #### CBC #### [facility] [address] [place] [address] Dr. Jose HolleyPlatelet mean volume (Bld) [Entitic vol]10.7 fLNormal9.5-13.5The [facility] HospitalComment on above:Performed By: #### CBC #### [facility] [address] [place] [address] Dr. Jose HolleyPLT230 103/dpApdjws994-258Epl [facility] HospitalComment on above: Performed By: #### CBC #### [facility] [address] [place] [address] Dr. Jose HolleyRBC4.56 106/ulNormal4.20-5.40The [facility] HospitalComment on above:Performed By: #### CBC #### [facility] [address] [place] [address] Dr. Jose HolleyWBC8.7 103/ulNormal4.0-11.0The [facility] HospitalComment on above: Performed By: #### CBC #### [facility] [address] [place] [address] Dr. Jose HolleyLIPID PROFILEon 31-83-4837CXWA-HDL RATIO NORMSEE BELOWClermont County HospitalComment on above:Result Comment: 3.3 - 4.4 LOW RISK 4.4 - 7.1 AVERAGE RISK 7.1 - 11.0 MODERATE RISK >11.0 HIGH RISKPerformed By: #### CMP, LIPID #### [facility] [address] [place] [address] Dr. Jose HolleyCholesterol [Mass/Vol]178 mg/dLNormal<=200[facility] Comment on above:Performed By: #### CMP, LIPID #### [facility] [address] [place] [address] Dr. Jose HolleyCholesterol in HDL [Mass/Vol]43 mg/uYYgtdgg01-70YykMercy Health [facility]sburg HospitalComment on above:Performed By: #### CMP, LIPID #### [facility] [address] [place] [address] Dr. Jose HolleyCholesterol in LDL [Mass/Vol]120.4 mg/dLClermont County HospitalComment on above:Performed By: #### CMP, LIPID #### [facility] [address] [place] [address] Dr. Jose Hand.total/Cholesterol in HDL [Mass ratio]4.1 {ratio} NormalMercy Health Perrysburg HospitalComment on above:Performed By: #### CMP, LIPID #### [facility] [address] [place] [address] Dr. Jose Chance NORMAL> or = 60 mg/dl - LOW CARDIOVASCULAR RISK <40 mg/dl - HIGH CARDIOVASCULAR RISKClermont County HospitalComment on above:Performed By: #### CMP, LIPID #### [facility] [address] [place] [address] Dr. Jose HolleyLDL CALC NORMALSEE BELOWClermont County HospitalComment on above:Result Comment: <100 mg/dl OPTIMAL 100 - 129 mg/dl NEAR OR ABOVE OPTIMAL 130 - 159 mg/dl BORDERLINE HIGH 160 - 189 mg/dl HIGH >190 mg/dl VERY HIGH Performed By: #### CMP, LIPID #### [facility] [address] [place] [address] Dr. Jose HolleyTriglyceride [Mass/Vol]73 mg/dLNormal<=150[facility] Comment on above:Performed By: #### CMP, LIPID #### [facility] [address] [address] [address] Jose HolleyVLDL CALC14.6 mg/dLNormalThe [facility] HospitalComment on above: Performed By: #### CMP, LIPID #### [facility] [address] [address] [address] Jose HolleyPROF 14(COMP METB)on 53-17-0336Ecqaiqh [Mass/Vol]3.5 g/dLNormal 3.4-5.0The [facility] HospitalComment on above:Performed By: #### CMP, LIPID #### [facility] [address] [address] [address] Jose HolleyAlbumin/Globulin [Mass ratio]0.8 {ratio}NormalThe [facility] HospitalComment on above:Performed By: #### CMP, LIPID #### [facility] [address] [place] [address] Dr. Jose Hua [Catalytic activity/Vol]51 U/EFknzgh21-783Uxz [facility] HospitalComment on above:Performed By: #### CMP, LIPID #### [facility] [address] [place] [address] Dr. Jose Andrew [Catalytic activity/Vol]27 U/EPqjvro27-20Jlp [facility] HospitalComment on above:Performed By: #### CMP, LIPID #### [facility] [address] [address] [address] Jose Melvin gap [Moles/Vol]11.5 mmol/LNormalThe [facility] Comment on above:Performed By: #### CMP, LIPID #### [facility] [address] [place] [address] Dr. Jose HolleyAST [Catalytic activity/Vol]18 U/JMpuxqa30-62Dlv [facility] HospitalComment on above:Performed By: #### CMP, LIPID #### [facility] [address] [place] [address] Dr. Jose HolleyBilirubin [Mass/Vol]0.2 mg/dLNormal0.2-1.0The [facility] Comment on above:Performed By: #### CMP, LIPID #### [facility] [address] [address] [address] Jose HolleyCalcium [Mass/Vol]8.5 mg/dLNormal8.5-10.1The [facility] Comment on above:Performed By: #### CMP, LIPID #### [facility] [address] [address] [address] Jose HolleyChloride [Moles/Vol]105 mmol/RCyxooh09-108Kbg [facility] Comment on above:Performed By: #### CMP, LIPID #### [facility] [address] [address] [address] Jose HolleyCO2 [Moles/Vol]24.5 mmol/GZdbqow15.0-32.0The [facility] Comment on above:Performed By: #### CMP, LIPID #### [facility] [address] [address] [address] Jose HolleyCreatinine [Mass/Vol]0.77 mg/dLNormal0.55-1.02The [facility] HospitalComment on above:Performed By: #### CMP, LIPID #### [facility] [address] [place] [address] Dr. Jose MendozaGFR-AF CENTRAL AFRICAN>60Normal>=60The [facility] HospitalComment on above:Performed By: #### CMP, LIPID #### [facility] [address] [address] [address] Jose Read-NON AF CENTRAL AFRICAN>60Normal>=60The [facility] HospitalComment on above:Performed By: #### CMP, LIPID #### [facility] [address] [address] [address] Jose HolleyGlobulin (S) [Mass/Vol]4.2 g/dLNormalThe [facility] HospitalComment on above:Performed By: #### CMP, LIPID #### [facility] [address] [place] [address] Dr. Jose HolleyGlucose [Mass/Vol]89 mg/xFBdkscx81-466Xsk [facility] Comment on above:Performed By: #### CMP, LIPID #### [facility] [address] [place] [address] Dr. Jose HolleyPotassium [Moles/Vol]4.0 mmol/LNormal3.5-5.1The [facility] Comment on above:Performed By: #### CMP, LIPID #### [facility] [address] [place] [address] Dr. Jose HolleyProtein [Mass/Vol]7.7 g/dLNormal6.4-8.2The [facility] Comment on above:Performed By: #### CMP, LIPID #### [facility] [address] [place] [address] Dr. Jose HolleySodium [Moles/Vol]137 mmol/CLsdamj832-481Mxp [facility] Comment on above:Performed By: #### CMP, LIPID #### [facility] [address] [place] [address] Dr. Jose HolleyUrea nitrogen [Mass/Vol]18.0 mg/dLNormal7.0-18.0The [facility] HospitalComment on above:Performed By: #### CMP, LIPID #### [facility] [address] [place] [address] Dr. Jose Ramsey nitrogen/Creatinine [Mass ratio]23.4 mg/mgNormalThe [facility] HospitalComment on above:Performed By: #### CMP, LIPID #### [facility] [address] [place] [address] Dr. Jose Villafuerte 93-91-9836HAX1.686 uIU/mLNormal0.358-3.740[facility] HospitalComment on above:Performed By: #### TSH #### [facility] [address] [place] [address] Dr. Jose HolleyLaboratory - Cytologyon 40-78-4528Kzyhowac report Cyto stain.thin prep Doc (Cvx/Vag)OO-AGSEJ-Peklfu 310 IVF Work Phone: OB/SCRAP HANDLER - Procedure Visiton 32-69-0100XI/SCRAP HANDLER - Procedure VisitDiagnoses/Problems Fertility testing (V26.21) (Z31.41) Chief Complaint Endosee [...] BEFORE PROCEDURE DIRECTED. Lup (more content not included)...[facility] TouchworksChart Updateon 09-21-2021 Chart UpdateChart Update Pt presented for pap but could not obtain as pt was day 1 of menses. Will plan to obtain pap at hysteroscopy. Zari Oviedo CNP 09/21/2021 16:15 Signatures Electronically signed by : RONA Pelayo; Sep 21 2021 4:15PM EST (Author)[facility] TouchworksOB/SCRAP HANDLER - Office Visiton 79-25-8764YK/SCRAP HANDLER - Office VisitNo report was sentNoMercy Health [facility] TouchworksTobacco Screening.on 79-57-3252Smal risk assessmenta) No falls within the last iuxqLC-AATXV-Ustotx 320 Work Phone: Last menstrual period start [id number] QG-UTDCR-Vwnqxx 320 Work Phone: Tobacco use status CPHSb) OaQC-NPMTT-Iyqeii 320 Work Phone: Chart Updateon 59-22-2815Zyoyx UpdateChart Update Spoke to patient regarding SIS results, small piece of endometrium noted. Recommend follow up diagnostic hysteroscopy, patient agrees. She will call with menses, okay to schedule anytime on Lupron ifno menses. Clotilde Espinosa MD 09/12/2021 11:05 Signatures Electronically signed by : Clotilde Espinosa MD; Sep 12 2021 11:05AM EST (Author)Normal[facility] TouchworksHCG, Beta Quantitativeon 36-29-1939AWT.beta subunit Qnm[IU]/bSFC-LFUZK-Lwgskqb IVF Work Phone: Comment on above:Low-level positive HCG results can be seen in early , in zulema- or post-menopausal females due to normal pituitary HCG production, or with analytic interference. Repeat testing in 48-72 hourscan aid in assessing for as results should double in this time period. FSH measurement isrecommended in zulema- or post-menopausal females as concurrent elevation of FSH can support pituitary production as the source of the HCG elevation.. Total HCG measurement is performed using the [employer] Access Immunoassay which detects intact HCG and free beta HCG subunit. This test is not indicated for use as a tumor marker. HCG testing is performed using a different test methodology at [facility] than other [facility]. Direct result comparison should only be made within the same method. REF VALUESNON FEMALE <5MALES <5Progesterone, Serumon 09-10-2021 Progesterone [Mass/Vol]8.1 ng/vBYH-OCJAB-Enxpweu 206A IVF Work Phone: Comment on above:Progesterone is performed using the [employer] Access Immunoassay. Progesterone testing is performed using a different test methodology at [facility] than other [facility]. Direct result comparison should only be made within the same method.REF VALUESMALE <0.2-0.8 FOLLICULAR PHASE <0.2-1.5 LUTEAL PHASE 7.4-15.4 POSTMENOPAUSAL <0.2-0.2 1ST TRIMESTER 12.0-84.0 2ND TRIMESTER 10.2-58.8 3RD TRIMESTER 46.5-160Chart Updateon 60-44-2530Qmrym UpdateOrders Subclinical hypothyroidism Start: Levothyroxine Sodium 50 MCG Oral Tablet (Synthroid); TAKE 1 TABLET DAILY Rx By: Zari Oviedo; Dispense: 30 Days ; #:30 Tablet; Refill: 2;For: Subclinical hypothyroidism; GUERA = N; Verified Transmission to [id number]; Last Updated By: Laura Quesada; 08/31/2021 2:17:16 [...] lupron (2 total months) and remain on letrozoledaily the entire time for planned FET in October 2021. Zari Oviedo CNP 08/31/2021 14:20 Signatures Electronically signed by : RONA Pelayo; Aug 31 2021 2:20PM EST (Author)NormalUH TouchworksOB/SCRAP HANDLER - Procedure Visiton 27-97-1670EW/SCRAP HANDLER - Procedure VisitOrders Subclinical hypothyroidism Start: Levothyroxine Sodium 50 MCG [...] (M99.07) Spontaneous miscarriage (634.90) (O03.9) 9 wk [facility] 11/02/2018 Steroid long-term use (V58.65) Strain of [...] Pharmacist Single Allergies Medication (more content not included)...Normal[facility] TouchworksGC + Chlamydia By Amplified Detectionon 08-30-2021. trachomatis rRNA WESLEY+probe Ql (Unsp spec)Negative ScchonrbKB-CKCPZ-Vokhmgs A IVF Work Phone: Comment on above:The APTIMA Combo 2 assay is FDA- approved for Chlamydia trachomatis and Neisseria gonorrhoeae testing on female endocervical and vaginal swabs, ThinPrep liquid pap samples, male urine samples and urethral swabs. Performance characteristics for Chlamydia trachomatis and Neisseria gonorrhoeae testing on specific yuv-LUP-kvxanqjg sample types (female urine samples) have been validated by [facility]. This laboratory is certified by CLIA to perform high complexity dale ting. Samples from all other sites are not validated for this method.N. gonorrhoeae rRNA WESLEY+probe Ql (Unsp spec)JgnuuupsIlpfoearXB-BEADO-Vnmlyft 206A IVF Work Phone: Comment on above:SOURCE: Urine The APTIMA Combo 2 assay is FDA-approved for Chlamydia trachomatis and Neisseria gonorrhoeae testing on female endocervical and vaginal swabs, ThinPrep liquid pap samples, male urine samples and urethral swabs. Performance characteristics for Chlamydia trachomatis and Neisseria gonorrhoeae testing on specific fwv-QFG-dpvqizpo sample types (female urine samples) have been validated by [facility]. This laboratory is certified by CLIA to perform high complexity testing. Samples from all other sites are not validated for this method.HIV 1/2 ANTIGEN/ANTIBODY SCREEN WITH REFLEX TO CONFIRMATIONon 08-30-2021 HIV 1+2 Ab Qn (S)Non-ReactiveSee AcswxXI-ZSSFG-Pwspymi 206A IVF Work Phone: Comment on above:SOURCE: Reference Range: NONREACTIVE HIV Ag/Ab screen is performed using the [employer] HIV Ag/Ab Combo assay which detects the presence of HIV p24 antigen as well as antibodies to HIV-1 (GroupM and O) and HIV-2..No laboratory evidence of HIV infection. If acute HIV infection is suspected, consider testing for HIV RNA by PCR (viral load). Hemoglobin A1Con 19-24-0846Xigdnra [Mass/Vol]94 mg/eOBG-MYRMZ-Jbsklrk A IVF Work Phone: HbA1c (Bld) [Mass fraction]4.9 %QG-ERNLW-Jxhmttj A IVF Work Phone: Comment on above:Diagnosis of Diabetes-Adults Non- Diabetic: < or = 5.6% Increased risk for developing diabetes: 5.7-6.4% Diagnostic of diabetes: > or = 6.5%. Monitoring of Diabetes Age (y) Therapeutic Goal (%) Adults: >18 <7.0 Pediatrics: 13-18 <7.5 7-12 <8.0 0- 6 7.5-8.5 [place] [employer]. Diabetes Care 33(S1), Mar 2009.Hepatitis B Surface Antigen on 75-76-6938Olmozsdal B Surface AntigenNon-ReactiveSee SnnleRM-PZAZA-Oygzbpf 206A IVF Work Phone: Comment on above:SOURCE: Reference Range: NONREACTIVE Biotin interference may cause falsely decreased results. Patients taking a Biotin dose of up to 5 mg/day should refrain from taking Biotin for 24 hours before sample collection. Providers may contact their local laboratory for further information.SOURCE: Reference Range: NONREACTIVE Results from patients taking biotin supplements or receiving high-dose biotin therapy should be interpreted with caution due to possible interference with this test. Providers may contact their local laboratory for further information.Laboratory - Blood bankon 73-79-2705PCN group Nom (Bld)NWM-VKZFO-Pvgluuh 206A IVF Work Phone: Blood group antibody screen JsPlfpypeyFP-TPOPH-Uyrtjfk 206A IVF Work Phone: Rh immune globulin screen (Bld) [Interp]Positive LY-MJUDH-Dsyilcc 206A IVF Work Phone: Laboratory - Chemistry and Chemistry - challengeon 03-94-1567NQT Qn4.86 m[IU]/Labove high thresholdSee QhfujEC-FLXIB-Xexmplz 206A IVF Work Phone: Comment on above:Reference Range: 0.44 - 3.98 TSH testing is performed using different testing methodology at [facility] than at other [facility]. Direct result comparisons should only be made within the same method.MRI Breast Bilateral with contrast full protocolon 08-35-7156KLZ Breast Bilateral with contrast full symqkxoaDepqxpBN-GBTTF-Mhpbwvn IVF Work Phone: Rubella IgG Antibodyon 80-03-0901Ielpfgt virus IgG IA PiCltjgvdkJW-OWISB-Zgonyho A IVF Work Phone: Comment on above:INTERPRETATIVE COMMENT NEGATIVE: No IgG antibodies specific to Rubella [...] tests should take into accountthe immunological status ofthe patient. Test results forpatients, including immunocompromised patients, neonates, andpediatricpatients, reflect their capacity to respondimmunologically to the virus as well as their exposure to thepathogen. Patients treated with IVIG may demonstrate alteredresults in serological assays.SYPHILIS SCREENING WITH REFLEXon 08-30-2021T. pallidum IgG+IgM IA Ql (S)Non-ReactiveSee IaagvMA-RNZKF-Mklbgih 206A IVF Work Phone: Comment on above:SOURCE: Reference Range: NONREACTIVENo significant level of Treponema pallidum antibody detected. Repeat testing in 2 to 4 weeks may be considered if early infection or incubating syphilis infection is suspected.T4 - Free Thyroxine, Serumon 44-66-5495Zqwn T4 [Mass/Vol]0.83 ng/dLSee TzvazBJ-KDBOV-Jxwlzlh 206A IVF Work Phone: Comment on above:Reference Range: 0.61 - 1.12 Thyroxine Free testing is performed using different testing methodology at [facility] than at other [facility]. Direct result comparisons should only be made within the same method.. Biotin can cause falsely elevated free T4 results. Patients taking a Biotin dose of up to 10 mg/day should refrain from taking Biotin for 24 hours before sample collection. Patient taking a Biotin dose of >10 mg/day should consult with their physician or the laboratory before the blood draw.Varicella Zoster IgG Antibodyon 82-71-9542PQF IgG IA Ql (S)VlelfflyPIDNMGJMDC-AZZAY-Liqzwwq 206A IVF Work Phone: Comment on above:INTERPRETATIVE COMMENT NEGATIVE: No IgG antibodies specific to VZV [...] demonstrate alteredresults in serological assays. Chart Updateon 19-57-3189Torlj UpdateChart Update Called patient to review plan: She [...] MD; Jul 27 2021 4:25PM EST (Author) [facility] TouchworksOB/SCRAP HANDLER - Office Visiton 04-53-8302SJ/SCRAP HANDLER - Office Visit Diagnoses/Problems Assessed Visit for screening mammogram (V76.12) (Z12.31) Orders Mamm - Screening Mammogram w/ Tomosynthesis; Status:Hold For - Scheduling; Requested for:15Jun2021; Radiologist to Determine Optimal Study : Y What are the patient's signs and symptoms ? : Annual Screening Mammogram Patient Discussion/Summary Plan will be to follow protocol for successful cycle exactly with suppression protocol leading intoprogrammed FET cycle with baby aspirin, lovenox, and [...] (donor oocyte/donor sperm) after suppression protocol for +DJJ9alb Programmed FET with baby aspirin, prednisone, and lovenox. Ready to pursue another . Plan will be to follow protocol for successful cycle exactly with suppression protocol leading intoprogrammed FET cycle with baby aspirin, lovenox, and [...] site) was utilized to providethis telehealth service. Verbal consent was requested and [...] by: self DATE OF COVID VACCINE: yes, Taaz received both doses plus booster just this [...] down to pumping twice per day still SCRAP HANDLER HISTORY: History of STI or PID: pt [...] previously: N/A, Donor E (more content not included)...NormalUH TouchworksTobacco Screening.on 07-69-6867Ejfh risk assessmenta) No falls within the last vhhnNB-ZQWMQ-YWO [facility] Work Phone: Last menstrual period start dateN/KBB-JRQND-IOG [facility] Work Phone: Tobacco use status CPHSb) OpZP-GEIHJ-TRR [facility] Work Phone: Immunoglobulin G Level, Serumon 13-23-3778PiQ [Mass/Vol]652 mg/dLbelow low lnehzuxun470 - 2010UH-Xjfmytfszf-Bbryjmli 2100 DO Work Phone: 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:MONOCLONAL PROTEINS MAY CAUSE FALSELY LOWRESULTS IN THIS ASSAY. SERUM PROTEINELECTROPHORESIS SHOULDBE DONE THEFIRST TEST TO EVALUATE MONOCLONAL GAMMOPATHY.Laboratory - Allergyon 06-08-2021. alternata IgE Qn (S)<0.10<0.19KH-Ognigmesgy-Usxyzk Work Phone: [phone] on above:SEE IMMUNOCAP INTERP.IGEA. fumigatus IgE Qn (S)<0.10<0.20SK-Lgmhbcuyny-Hkguvz Work Phone: Comment on above:SEE IMMUNOCAP INTERP.IGEAmerican house dust mite IgE Qn (S)<0.10<0.53ON-Augavmrntn-Mbgtka Work Phone: Comment on above:SEE IMMUNOCAP INTERP.IGEAmerican Perth IgE Qn (S)<0.10<0.99ZL-Udxuleqeml-Jpcuxf Work Phone: Comment on above:SEE IMMUNOCAP INTERP.IGEBermuda grass IgE Qn (S)<0.10<0.25CF-Wjgupesmfx-Jlysmi Work Phone: Comment on above:SEE IMMUNOCAP INTERP.IGEBoxelder IgE Qn (S)<0.10<0.99HK-Sogzkghgva-Odekie Work Phone: Comment on above:SEE IMMUNOCAP INTERP.IGEC. herbarum IgE Qn (S)<0.10<0.41IX-Gmihscdzne-Hyqghe Work Phone: Comment on above:SEE IMMUNOCAP INTERP.IGECalifornia [place] IgE Qn (S)<0.10<0.08LO-Tbizuxurmf-Jnspbs Work Phone: Comment on above:SEE IMMUNOCAP INTERP.IGECat dander IgE Qn (S)0.15 {KU/L}<0.23AH-Pqnkduahml-Cucqmt Work Phone: Comment on above:SEE IMMUNOCAP INTERP.IGECockroach IgE Qn (S)<0.10<0.35EH-Xyqzclvxud-Mmcjrbdy 2100 DO Work Phone: Comment on above:SEE IMMUNOCAP INTERP.IGECommon Pigweed IgE Qn (S)<0.10<0.70ON-Pltckhzuwv-Pnadhs Work Phone: [phone] on above:SEE IMMUNOCAP INTERP.IGECottonwood IgE Qn (S)<0.10<0.67CV-Ejncvpeeqk-Izbulx Work Phone: Comment on above:SEE IMMUNOCAP INTERP.IGEDog dander IgE Qn (S)<0.10<0.51WA-Goxrccabun-Chwkfv Work Phone: [phone] on above:SEE IMMUNOCAP INTERP.IGEEnglish plantain IgE Qn (S)<0.10<0.47QO-Waqnmlodqd-Hyutdm Work Phone: Comment on above:SEE IMMUNOCAP INTERP.IGEEuropean house dust mite IgE Qn (S)<0.10<0.47WX-Paitptdhcd-Tfrlqxdx 2100 DO Work Phone: Comment on above:SEE IMMUNOCAP INTERP.IGEGoosefoot IgE Qn (S)<0.10<0.43PX-Tlggvenfrj-Fdmfyo Work Phone: Comment on above:SEE IMMUNOCAP INTERP.IGEJohnson grass IgE Qn (S)<0.10<0.04GF-Jmubpgntws-Fjhkof Work Phone: Comment on above:SEE IMMUNOCAP INTERP.IGEKentucky blue grass IgE Qn (S)<0.10<0.62IG-Aqglotjtrg-Igdkcr Work Phone: Comment on above:SEE IMMUNOCAP INTERP.IGEMountain Juniper IgE Qn (S)<0.10<0.72AO-Pbwwmixqdy-Fywgqf Work Phone: Comment on above:SEE IMMUNOCAP INTERP.IGEP. notatum IgE Qn (S)<0.10<0.28JA-Kqygmsjlwq-Ogmzbm Work Phone: Comment on above:SEE IMMUNOCAP INTERP.IGEPecan or Marengo Tree IgE Qn (S)<0.10<0.53QA-Yhraeelkcp-Mofmxp Work Phone: Comment on above:SEE IMMUNOCAP INTERP.IGESaltwort IgE Qn (S)<0.10<0.85DO-Rxunohvmvd-Lgebax Work Phone: Comment on above:SEE IMMUNOCAP INTERP.IGESheep [place] IgE Qn (S)<0.10<0.27MA-Pmhyijjzce-Pmgykz Work Phone: Comment on above:SEE IMMUNOCAP INTERP.IGESilver Birch IgE Qn (S)<0.10<0.10WO-Pemqqvhckb-Pvmczd Work Phone: Comment on above:SEE IMMUNOCAP INTERP.IGETimothy IgG Qn (S)<0.10<0.85TM-Eogejficrb-Algmpt Work Phone: Comment on above:SEE IMMUNOCAP INTERP.IGETotal IgE RAST Qn (S)5.5 {KU/L}See MuftlZN-Ooprknqxxa-Qmbjiy Work Phone: Comment on above:Reference Range: 0.0 - 214.0 Note: Omalizumab (Xolair, 4Blox; humanized IgG1 antihuman IgE Fc) treatment does not significantly interfere with the accuracy of total IgE on the ImmunoCAP ([employer]) platform. J Allergy Clin Immunol 2006;117:759-66). Allergens, parasitic diseases, smoking, and alcohol consumption have been reported to increase levels of total IgE in serum.White Vadim IgE Qn (S)<0.10<0.51WX-Qzsrwzldaw-Enxjvz Work Phone: Comment on above:SEE IMMUNOCAP INTERP.IGEWhite Elm IgE Qn (S)<0.10<0.83KV-Cipvmlkimg-Kqzpce Work Phone: Comment on above:SEE IMMUNOCAP INTERP.IGEWhite mulberry IgE Qn (S)<0.10<0.59GJ-Jepjwswtcx-Uufinx Work Phone: Comment on above:SEE IMMUNOCAP INTERP.IGEWhite [place] IgE Qn (S)<0.10<0.49RC-Cabcfixrjp-Udxynx Work Phone: Comment on above:SEE IMMUNOCAP INTERP.IGELaboratory - Microbiology and Antimicrobial susceptibilityon 06-08-2021. pneumoniae 1 IgG (S) [Mass/Vol]0.7 ug/mLbelow low threshold>1.5SC-Kybytrqcrg-Gwvyju Work Phone: [phone]. pneumoniae 12 IgG (S) [Mass/Vol]<0.1below low threshold>1.7HW-Opqmtuvnxs-Cpgnus Work Phone: [phone]. pneumoniae 14 IgG (S) [Mass/Vol]0.2 ug/mLbelow low threshold>1.6ZP-Kqepobtueu-Eupmpu Work Phone: [phone]. pneumoniae 17 IgG (S) [Mass/Vol]0.4 ug/mLbelow low threshold>1.2FY-Eeapsxvbzg-Pjkelb Work Phone: [phone]. pneumoniae 19 IgG (S) [Mass/Vol]0.5 ug/mLbelow low threshold>1.4WM-Vxmynilbqz-Aeycht Work Phone: [phone]. pneumoniae 2 IgG (S) [Mass/Vol]0.9 ug/mLbelow low threshold>1.3WJ-Vdyfrjhnpc-Sucqoj Work Phone: S. pneumoniae 20 IgG (S) [Mass/Vol]1.5 ug/mL>1.3 JO-Pcgggawhpl-Ypzzep Work Phone: [phone]. pneumoniae 22 IgG (S) [Mass/Vol]0.6 ug/mLbelow low threshold>1.8AA-Xvijicmlfl-Skavlb Work Phone: [phone]. pneumoniae 23 IgG (S) [Mass/Vol]<0.1below low threshold>1.5XZ-Altdoyvlox-Rcyzkt Work Phone: S. pneumoniae 3 IgG (S) [Mass/Vol]2.0 ug/mL>1.3 QV-Rhsfupowmm-Mhfkiu Work Phone: [phone]. pneumoniae 34 IgG (S) [Mass/Vol]1.1 ug/mLbelow low threshold>1.2EG-Jbsqyygdsn-Aixwpd Work Phone: S. pneumoniae 4 IgG (S) [Mass/Vol]0.1 ug/mLbelow low threshold>1.4FG-Bwgxsnvxey-Vqxlmx Work Phone: S. pneumoniae 43 IgG (S) [Mass/Vol]1.4 ug/mL>1.3 FK-Zqexeoaxmf-Bcsnev Work Phone: S. pneumoniae 5 IgG (S) [Mass/Vol]0.5 ug/mLbelow low threshold>1.7HP-Rqgvixprqx-Zhkbdl Work Phone: S. pneumoniae 8 IgG (S) [Mass/Vol]2.8 ug/mL>1.3 OZ-Vvlsjafzvu-Cxonoh Work Phone: S. pneumoniae 9 IgG (S) [Mass/Vol]3.7 ug/mL>1.3 GL-Ssvnyqmcul-Actyrd Work Phone: S. pneumoniae Cameroonian type 15B IgG (S) [Mass/Vol]1.2 ug/mLbelow low threshold>1.5OO-Qtbrgltnir-Vojrfz Work Phone: S. pneumoniae Cameroonian type 18C IgG (S) [Mass/Vol]0.5 ug/mLbelow low threshold>1.7NK-Ayhosdikyf-Bzvxcm Work Phone: S. pneumoniae Cameroonian type 19A IgG (S) [Mass/Vol]1.8 ug/mL>1.3HR-Arububhanj-Oommvw Work Phone: S. pneumoniae Cameroonian type 33F IgG (S) [Mass/Vol]1.0 ug/mLbelow low threshold>1.1UE-Uatgoryndd-Cnspnq Work Phone: 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: Performed At:[facility] [address] [place] [address]Skriuhvlms Director: Elmer Gonzalez Ph.D., BCLSimeon (ABB)CLIA#: [id number]: S. pneumoniae Cameroonian type 6B IgG (S) [Mass/Vol]1.0 ug/mLbelow low threshold>1.3 DE-Xymeswiprx-Dpwxag Work Phone: [phone]. pneumoniae Cameroonian type 7F IgG (S) [Mass/Vol]3.5 ug/mL>1.1RM-Kmcsirvrns-Lhstro Work Phone: [phone]. pneumoniae Cameroonian type 9V IgG (S) [Mass/Vol]1.2 ug/mLbelow low threshold>1.6BL-Ytrahxqzbo-Zzdnlg Work Phone: [phone] Binding Lectinon 11-67-1306Poseas Binding Fbjnus812 ng/mL>844WC-Imayilokbl-Ppozam Work Phone: Comment on above:Investigators most frequently use 100 ng/mL as the threshold for defining an MBL deficiency. MBL values below this value may be associated with increased susceptability to infection.*This test was developed and its performance characteristics determined by [employer]. It has not been cleared or approved by the U.S. Food and Drug Administration. Performed At:[facility] [address] [place] [address]Wsqcaxbagt Director: Elmer Gonzalez Ph.D., BCLD (ABB)CLIA#: [id number]: No Panel Informationon 19-33-8771LYD MZVTFXHXQ-Liuphxmlmx-Stfrmrol 2100 DO Work Phone: Comment on above:REFERENCE RANGE (IMMUNOCAP) IGE KU/L CLASS INTERPRETATION < 0.10 0 BELOW DETECTION 0.10- 0.34 0/1 EQUIVOCAL 0.35- 0.69 1 LOW POSITIVE 0.70- 3.49 2 MODERATE POSITIVE 3.50- 17.49 3 HIGH UYHJRFNB95.50- 49 4 VERY HIGH NSKUZYSR67 - 99 5 VERY HIGH POSITIVE >100 6 VERY HIGH POSITIVE<0.10<0.63NA-Razaphvlrp-Wflmsx Work Phone: 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:SEE IMMUNOCAP INTERP.IGETemikus Abon 06-08-2021. tetani IgG IA Qn (S)3.47 {IU/mL}<0.94YO-Nsksnfjvua-Cyalwtyq 2100 DO Work Phone: 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:Interpretation: Non-Protective <0.10 Protective >=0.10 Results for this test are for researchpurposes only by the assay's water resources program director. The performance characteristics of this product have not been established. Results should not be used as a diagnostic procedure without confirmation of the diagnosis by another medically established diagnostic product or procedure.CT Sinus without Contraston 46-00-6230DO Sinuses WO dgavumorDjmaflJW-Zjhdnuvwxj-Eesontlx 2100 DO Work Phone: Office Visiton 78-43-7537Mjajmw-up visit Diagnoses/Problems Recurrent sinusitis (473.9) (J32.9) Hypogammaglobulinemia [...] my direction and personally dictated by me. Ihave reviewed the chart and agree that the [...] also. She last had Zithromaxin Jan 2021. She states does not react [...] (M99.07) Spontaneous miscarriage (634.90) (O03.9) 9 wk DANNE 11/02/2018 Steroid long-term use (V58.65) Strain of rhomboid muscle, subsequent encounter (V58.89,847.1) (S29.012D) Subchorionic hematoma in first trimester (656.73) (O41.8X10,O46.8X1) Subclinical hypothyroidism (244.8) (E03.8) Urgency of urination (788.63) (R39.15) Urinary tract infection (599.0) (more content not included)...NormalUH TouchworksAntibody Assay, Diphtheriaon 01-31-2021. diphtheriae Ab IA Qn (S)1.00 {IU/mL}<0.33NG-Klkoogrwozexit-Tknwjzegt Work Phone: 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:Interpretation: Non-Protective <0.10 Protective >=0.10 For research use only.Complement, Total, Son 01-31-2021 Complement total hemolytic CH50 Qn75 [arb'U]/hH18-32YK-Gabospavvatrkb-Vhinjdkrl Work Phone: 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:Test Performed by:[facility] [place] [address]Abg Director: Jero Khan M.D. Ph.D.; CLIA# [id number]. Influenza B Ab, IgGon 01-31-2021H. influenzae B IgG (S) [Mass/Vol]0.0 ug/mL [facility] Work Phone: 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:INTERPRETIVE INFORMATION: H. Influenzae b Ab, IgG Less than 1.0 ug/mL ...... Antibody concentrationnot protective. 1.0 ug/mL or greater ..... Antibodies to H. Influenzae b detected. Suggestive of protection.Responder status is determined according to the ratio of post-vaccination concentration to pre-vaccination concentration of Haemophilus influenza b antibody, IgG as follows: 1. If the post-vaccination concentration is less than 3.0 ug/mL, the patient is considered to be a non- responder. 2. If the post-vaccination concentration is greater than or equal to 3.0 ug/mL, a patient with a ratio of greater than or equal to 4 is a good responder, a ratio of 2-4 is a weak responder, and a ratio of less than 2 is considered a non-responder. This test was developed and its performance characteristics determined by [facility]. It has not been cleared or approved by the US Food and Drug Administration. This test was performed in a CLIA certified laboratory and is intended for clinical purposes.Performed By: [facility] [place] [address]Sbcbsxxisn Director: Bolivar Wheeler MDImmunoglobulin E Level, Serumon 56-75-9037PmN Qn2 {IU/mL}0 - 214 GM-Mogaobsopoupkt-Fboqkkqpk Work Phone: Initial Visit (Otolaryngology)on 99-73-8513Qnqplwp Visit (Otolaryngology)Diagnoses/Problems Recurrent acute serous otitis media of both [...] with all questions answered. I will speak withher with the results and plan accordingly. Provider [...] with all questions answered. I will speak withher with the results and plan accordingly. Thank [...] her ears. Has a significant history of havingchronic problems as a child with recurrent ear [...] and is reviewed with the patient and issigned by me on this date. Active Problems [...] hematoma in first trime (more content not included)...NormalUH TouchworksLaboratory - Chemistry and Chemistry - challengeon 13-42-6567UkV [Mass/Vol]211 mg/dL70 - 452QY-Epoimisfzqdmop-Sqiyezrvm Work Phone: Comment on above:MONOCLONAL PROTEINS MAY CAUSE FALSELY LOWRESULTS IN THIS ASSAY. SERUM PROTEINELECTROPHORESIS SHOULDBE DONE THEFIRST TEST TO EVALUATE MONOCLONAL GAMMOPATHY.IgG [Mass/Vol]559 mg/dLbelow low iredgpcyt379 - 8433OG-Kmxcyydrpeafjq-Dbsuavmmx Work Phone: Comment on above:MONOCLONAL PROTEINS MAY CAUSE FALSELY LOWRESULTS IN THIS ASSAY. SERUM PROTEINELECTROPHORESIS SHOULDBE DONE THEFIRST TEST TO EVALUATE MONOCLONAL GAMMOPATHY.IgM [Mass/Vol]68 mg/dL40 - 230 EX-Mgpyojiqxpajzj-Pmtpiifrk Work Phone: 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:MONOCLONAL PROTEINS MAY CAUSE FALSELY LOWRESULTS IN THIS ASSAY. SERUM PROTEINELECTROPHORESIS SHOULDBE DONE THEFIRST TEST TO EVALUATE MONOCLONAL GAMMOPATHY.Laboratory - Microbiology and Antimicrobial susceptibilityon 01-31-2021. pneumoniae 1 IgG (S) [Mass/Vol]<0.1 below low threshold>1.4CE-Iwzdpxrmvqvxpw-Wvwivllfu Work Phone: S. pneumoniae 12 IgG (S) [Mass/Vol]<0.1below low threshold>1.4DC-Nwbtqbaviylryp-Ifcolwpku Work Phone: S. pneumoniae 14 IgG (S) [Mass/Vol]<0.1below low threshold>1.2WW-Gkvbzlewpuhpeh-Zmgtqspes Work Phone: S. pneumoniae 17 IgG (S) [Mass/Vol]<0.1below low threshold>1.7HY-Pqtieauaxexhny-Kierxjjsa Work Phone: S. pneumoniae 19 IgG (S) [Mass/Vol]0.1 ug/mLbelow low threshold>1.9HH-Rnftfshbnseclm-Uaagrlgfs Work Phone: S. pneumoniae 2 IgG (S) [Mass/Vol]<0.1below low threshold>1.2IS-Baztpinbememae-Xzkceiemv Work Phone: S. pneumoniae 20 IgG (S) [Mass/Vol]0.3 ug/mLbelow low threshold>1.9JS-Aeujlccexslpwc-Lsiqltdri Work Phone: S. pneumoniae 22 IgG (S) [Mass/Vol]<0.1below low threshold>1.8NX-Fdsbsgzknadzxe-Lsqfidxxa Work Phone: S. pneumoniae 23 IgG (S) [Mass/Vol]<0.1below low threshold>1.0GU-Rqlgtgsyxffjij-Sqatqiwjp Work Phone: S. pneumoniae 3 IgG (S) [Mass/Vol]0.7 ug/mLbelow low threshold>1.8IX-Odbpcrxlscswyd-Iwefjwflb Work Phone: S. pneumoniae 34 IgG (S) [Mass/Vol]0.3 ug/mLbelow low threshold>1.5NQ-Jmbphprvuhclrp-Mscbgmhnp Work Phone: S. pneumoniae 4 IgG (S) [Mass/Vol]<0.1below low threshold>1.3WI-Somymhoxoogsgc-Kevcgsogp Work Phone: S. pneumoniae 43 IgG (S) [Mass/Vol]0.3 ug/mLbelow low threshold>1.7DZ-Mgsebanbuvypmh-Ejaqawbyl Work Phone: S. pneumoniae 5 IgG (S) [Mass/Vol]<0.1below low threshold>1.6OG-Ilslmtmgrbqtzj-Lbniwyzzd Work Phone: S. pneumoniae 8 IgG (S) [Mass/Vol]<0.1below low threshold>1.3BI-Bgqgqtdveoyxiq-Sgiodbekd Work Phone: S. pneumoniae 9 IgG (S) [Mass/Vol]<0.1below low threshold>1.2CG-Ofchvxnafwkseh-Dxsqzgenn Work Phone: S. pneumoniae Cameroonian type 15B IgG (S) [Mass/Vol]<0.1 below low threshold>1.9WU-Nmnjvvmwjhxtqt-Mcxthfwvv Work Phone: S. pneumoniae Cameroonian type 18C IgG (S) [Mass/Vol]0.2 ug/mLbelow low threshold>1.6LA-Ejugtnuxzzohxu-Xjyxepfir Work Phone: S. pneumoniae Cameroonian type 19A IgG (S) [Mass/Vol]0.4 ug/mLbelow low threshold>1.3DN-Pqammizqmigcpl-Bfoijekat Work Phone: S. pneumoniae Cameroonian type 33F IgG (S) [Mass/Vol]<0.1 below low threshold>1.4YN-Hrnztewzbmocxg-Hjhwyzrnv Work Phone: 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:*This test was developed and its performance characteristics determined by [employer]. It hasnot been cleared or approved by the U.S. Food and Drug Administration. Performed At:[employer] [address] [place] [address]Wqprqxeyqs Director: Elmer Gonzalez Ph.D., BCLD (ABB)CLIA#: [id number]: s. pneumoniae Cameroonian type 6B IgG (S) [Mass/Vol] <0.1below low threshold>1.0ML-Bvpdjtmdrjwskc-Icqpebiwo Work Phone: S. pneumoniae Cameroonian type 7F IgG (S) [Mass/Vol]1.2 ug/mLbelow low threshold>1.8QL-Gurcvuvzzkarnd-Dnkrlpnui Work Phone: S. pneumoniae Cameroonian type 9V IgG (S) [Mass/Vol]0.2 ug/mLbelow low threshold>1.0FH-Eegbcuoposcuxz-Otrnkzlxh Work Phone: No Panel Informationon 01-31-2021<53 - 200 ZK-Ywacsrgqjtybox-Mzbvvxmgr Work Phone: 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:DUE TO INHERENT IMPRECISION OF METHODS, THE SUM OF COMPONENTS MAY DIFFER FROM TOTAL IGG BY MUCH 20%.31 mg/dL11 - 73DO-Hjiwmjkzkyprsn-Wozlvgwuz Work Phone: [phone] mg/dL150 - 614JN-Bcovqzpzyiahvr-Gjnwspapu Work Phone: [phone] mg/dLbelow low tbkhbkyxo412 - 1140 [facility] Work Phone: Tobacco Screening.on 96-95-4253Lyodqvm use status CPHS b) OqYS-Oxjgnfbpembtat-Kcfnsrfqe Work Phone: Woronavirus 2019 RNA by PCR, Symptomaticon 01-03-2021 Date and time of symptom onset12/31/20207975BW-Kzzymtenwtqmoq-Jwpocmzet Work Phone: Soronavirus 2019 RNA by PCR, SymptomaticDetected AbnormalSee PyvagEM-Ikzjogcumutzop-Akehbamai Work Phone: Gomment on above:SOURCE: Nasal, NasopharyngealReference Range: Not Detected.This test has received FDA Emergency UseAuthorization (EUA) and has been verified by [facility] ([facility]).This test is only authorized for the duration of time that circumstances exist to justify the authorization of the emergency use of in vitro diagnostic tests for the detection of SARS-CoV-2 virus and/or diagnosis of COVID-19 infection under section 564(b)(1) of the Act, 21 U.S.C. 360bbb- 3(b)(1), unless the authorization is terminated or revoked sooner. [facility] is certified under CLIA-88 as qualified to perform high complexity testing. Testing is performed in the [facility] located at [address] [place] [address].SARS-CoV-2/Flu/RSV Multiplex Test: Fact s heet for providers: https://www.fda.gov/media/579354/downloadFact sheet for patients: https://www.fda.gov/media/580620/downloadOtheron 70-67-1573Fswacmfudkz by: PAMRZBUS54/29/21 16:14Indication======== Suspected Problem with Growth, Class2 Obesity (BMI 35-39.9), Conceived via AssistedReproductive Technology, AMA Multigravida,Recurrent PregnancyLoss, Maternal Thyroid Disorder, Anxiety, Depression, Crohn's [...] date GA BPD (mm) HC (mm) AC (mm)FL(mm) HL (mm) EFW (g)01/07/2020 20w 0d 46.5 52% 172.9 35% 151.6 57% 31.3 32% 33.6 84% 332 51%03/22/2020 30w 5d 75.5 26% 281.0 17% 264.5 42% 57.3 19% 1,574 29%04/28/2020 36w 0d 85.3 16% 310.5 4% 332.587% 68.1 21% 2,880 57% Impression========= Known case [...] constellation of increased amniotic fluid volume and thefetal abdominal circumference at the87%ile might suggest risk [...] present. FHR 159 bpm. movements visualized.Presentation cephalic.Placenta Placentalsite: posterior.Umbilical cord Cord vessels: 2 vessel cord.Amniotic fluid Amount of AF: normal amount. MVP 8.0 cm. MCKENNA 23.1 cm. Q1 6.3 cm, Q2 8.0 cm, Q3 5.8cm, Q4 3.0 cm. Biometry StandardBPD 85.3 mm34w 3d 16% Hadlock OFD 109.7 mm 35% INTERGROWTH-21st HC 310.5 mm34w 5d 4% Hadlock C erebellum tr 55.6 mm38w 1d 93% Hill AC [...] ventricle: NormalLt lateral ventricle: NormalThalami: NormalCerebellar lobes: Normal4- chamber view: suboptimalRVOT view: suboptimalLVOT view: suboptimalHeart / ThoraxSitus: Normal3-vessel view: suboptimalCardiac axis: NormalCardiac size: NormalCardiac rhythm: NormalDiaphragm: NormalStomach: visualizedKidneys: NormalBladder: visualizedAbdomenAbdom. wall: NormalStomach: correct situsRt kidney: NormalLt kidney: NormalLarge bowel: NormalWants to know gender: no Bioph ysical Profile 2: breathing movements2: Gross body movements2: tone2: Amniotic fluid volume8/8 Biophysical profile scoreInterpretation: normal Maternal Structures Uterus / CervixUterus: VisualizedCervix: Not visualizedOvaries / Tubes / AdnexaRt ovary: Not visualizedLt ovary: Not visualized Method====== Transabdominal ultrasound examination. View: Poor viewElectronically signed by: EDD 04/28/20 16:14 [id number] [id number] Work Phone: Comment on above:ORDER REVISED TO A OB BIOPHYSICAL PROFILE (W/O NST) BY RADIOLOGIST; Original Order Number: [id number] REVISED TO A OB FOLLOW UP OR REPEAT SCAN BY RADIOLOGIST; Original Order Number: [id number] [phone] (Bld) [Volume fraction]34.0 %below low thresholdSee [facility] [address] M Work Phone: Comment on above:Reference Range: 36.0 - 46.0 Hemoglobin (Bld) [Mass/Vol]11.6 g/dLbelow low thresholdSee ZsymdRA-EYDG-VDMQ [place] [address] M Work Phone: Comment on above:Reference Range: 12.0 - 16.0MCV (RBC) [Entitic vol]92 fL80 - 902FC-LATW-ZHBX [place] [address] M Work Phone: Platelets (Bld) [#/Vol]150 {x10E9/L}150 - 450 WC-UHBN-ITZY [place] [address] M Work Phone: RBC (Bld) [#/Vol]3.70 {x10E12/L}below low thresholdSee KvdcwCE-DYST-INUW [place] [address] M Work Phone: Comment on above:Reference Range: 4.00 - 5.20WBC (Bld) [#/Vol]0.0 {/100_WBC}0.0 - 0.2DJ-XYPZ-VOEP [place] [address] M Work Phone: WBC (Bld) [#/Vol]10.9 {x10E9/L}4.4 - 11.4RE-AWJK-LTGA [place] [address] M Work Phone: Imm/Pathon [phone] identified Aer cx Nom (Genital specimen)PATIENT: WILD CALVO [facility]ATION: [facility]#: [id number] : 76 AGE: SEX: F ORDERED BY: TJ CURRIE: VAG-RECTAL COLLECTED: 04/26/20 17:39ANTIBIOTICS AT NEISHA.: RECEIVED : 04/26/20 21:28SITE: Cervix R E S U L T S GROUP B STREP SCREEN FINAL 04/28/20 09:42 NEGATIVE FOR GROUP B BETA STREP.ML-GSMT-MWRK [place] [address] M Work Phone: Metabolic Panelon [phone] [Catalytic activity/Vol]81 U/L33 - 708JS-CODH-UGWW [place] [address] M Work Phone: Anion gap [Moles/Vol]14 mmol/L10 - 37FH-VDHS-BRXK [place] [address] M Work Phone: Bilirubin [Mass/Vol]0.3 mg/dL0.0 - 1.2CW-GOJB-YZUP [place] [address] M Work Phone: Calcium [Mass/Vol]8.9 mg/dL8.6 - 10.3IP-LUSJ-IGBI [place] [address] M Work Phone: Chloride [Moles/Vol]108 mmol/Labove high - 303JI-QUSY-YESO [place] [address] M Work Phone: CO2 [Moles/Vol]21 mmol/L21 - 15KM-MOZX-NXOK [place] [address] M Work Phone: Creatinine [Mass/Vol]0.69 mg/dLSee QligwQO-IBQL-NVFV [place] [address] M Work Phone: Comment on above:Reference Range: 0.50 - 1.05Glucose [Mass/Vol]120 mg/dLabove high wxxojvppi15 - 94HP-QNOX-ZLPQ [place] [address] M Work Phone: LDH [Catalytic activity/Vol]169 U/L84 - 246 FB-ERDJ-PBWO [place] [address] M Work Phone: Potassium [Moles/Vol]3.6 mmol/L3.5 - 5.8GB-CTOW-TFMF [place] [address] M Work Phone: Protein [Mass/Vol]5.4 g/dLbelow low threshold6.4 - 8.2 ZX-EFOA-YKHJ [place] [address] M Work Phone: Sodium [Moles/Vol]139 mmol/L136 - 426GC-WWOZ-YZRK [place] [address] M Work Phone: Urea nitrogen [Mass/Vol]14 mg/dL6 - 84KW-JRAL-TMZT [place] [address] M Work Phone: Otheron 40-91-4601Pvhajwo BCP dye [Mass/Vol]3.2 g/dL below low threshold3.4 - 5.9SC-WHMT-FUCI [place] [address] M Work Phone: ALT With P-5'-P [Catalytic activity/Vol]16 U/L7 - 45 SC-FZQK-XTORCentral Park [facility] [address] M Work Phone: Comment on above:Patients treated with Sulfasalazine may generate falsely decreased results for ALT.AST With P-5'-P [Catalytic activity/Vol]21 U/L9 - 19FT-IDGC-MHIAThomas B. Finan [facility] [address] M Work Phone: Erythrocyte distribution width (RBC) [Ratio]13.6 %See ImoasCY-KUWT-XLHYMercy Hospital [address] M Work Phone: Comment on above:Reference Range: 11.5 - 14.5MCHC (RBC) [Mass/Vol]34.1 g/dLSee GmzixCE-ECMN-BGULMercy Hospital [address] Work Phone: Comment on above:Reference Range: 32.0 - 36.0>60>60 TG-MGHP-NZHUKara [place] 0816560 M Work Phone: Comment on above:CALCULATIONS OF ESTIMATED GFR ARE PERFORMED USING THE MDRD STUDY EQUATION FOR THE IDMS-TRACEABLE CREATININE METHODS. CLIN CHEM 2007;53:766-72Total Protein, Urine Spoton 04-26-2020 Creatinine (U) [Mass/Vol]555.0 mg/dLabove high thresholdSee VekmaCF-LZGV-LWIFThomas B. Finan Center [address] M Work Phone: Comment on above:Reference Range: 20.0 - 320.0Protein (U) [Mass/Vol]49 mg/dLabove high threshold5 - 11NR-JEYY-QUFXKara [place] 0816560 M Work Phone: Protein/Creatinine (U) [Ratio]0.09 {mg/mg_Creat}See GmmvsCV-DEIS-QYFWBrian [place] 2840360 Work Phone: Comment on above:Reference Range: 0.00 - 0.17Uric Acid, Serumon 83-10-2237Yzugf [Mass/Vol]7.0 mg/dLabove high threshold2.3 - 6.7 [place] 2840360 Work Phone: Comment on above:Venipuncture immediately after or during the administration of Metamizole may lead to falsely low results. Testing should be performed immediately prior to Metamizole dosing.BASIC METABOLIC PANELon 77-24-2574Udsxg gap [Moles/Vol]13 mmol/NYldfgw54 - 20St. [facility] HospitalComment on above:Performed By: #### BMP #### [address] [address]Egvxkls [Mass/Vol]8.6 mg/dLNormal8.6 - 10.3St. [facility] HospitalComment on above:Performed By: #### BMP #### [address] [address]Ayurdbkr [Moles/Vol]105 mmol/YUwiiyg26 - 107St. [facility] HospitalComment on above:Performed By: #### BMP #### [address] [address]Jhrfzrhdpn [Mass/Vol]0.54 mg/dLNormal0.50 - 1.05St. [facility] HospitalComment on above:Performed By: #### BMP #### [address] [address]DCR-LMGHLSH AM.>60Normal>60St. [facility] HospitalComment on above:Result Comment: CALCULATIONS OF ESTIMATED GFR ARE PERFORMED USING THE MDRD STUDY EQUATION FOR THE IDMS-TRACEABLE CREATININE METHODS. CLIN CHEM 2007;53:766-72Performed By: #### BMP #### [address] [address]OQY-WTT AM.>60Normal>60St. [facility] HospitalComment on above:Performed By: #### BMP #### [address] [place] [address]Arvqomp [Mass/Vol]99 mg/fDNnosbh14 - 99[facility] Comment on above:Performed By: #### BMP #### [address] [place], [place] [address]ZKX7 (Bld) [Moles/Vol]22 mmol/RPbwayi09 - 32St. [facility] HospitalComment on above:Performed By: #### BMP #### [address] [place], [place] [address]Eqbtssuof [Moles/Vol]4.0 mmol/LNormal3.5 - 5.3St. [facility] HospitalComment on above:Performed By: #### BMP #### [address] [address]Zbxlpu [Moles/Vol]136 mmol/DIdbmpu090 - 145St. [facility] HospitalComment on above:Performed By: #### BMP #### [address] [address]Yret nitrogen [Mass/Vol]10 mg/dLNormal6 - 23St. [facility] HospitalComment on above:Performed By: #### BMP #### [address], [place] [address]AOT AND DIFFERENTIALon 03-22-2020% AUTOMATED IMMATURE GRAN1.3 %High0.0 - 0.9St. [facility] Eye HospitalComment on above:Result Comment: Immature Granulocyte Count (IG) includes promyelocytes, myelocytes and metamyelocytes but does not include bands. Percent differential counts (%) should be interpreted in the context of the absolute cell counts (cells/L).Performed By: #### CBCDF #### [address] [place], [place] [address]Whdolkicb (Bld) [#/Vol]0.04 10*3/uLNormal0.00 - 0.10St. [facility] HospitalComment on above:Performed By: #### CBCDF #### [address] [address]Qbrepkxgo/100 WBC (Bld)0.4 %Normal0.0 - 2.0St. [facility] HospitalComment on above:Performed By: #### CBCDF #### [address] [address]Erusikgwyel (Bld) [#/Vol]0.14 10*3/uLNormal0.00 - 0.70St. [facility] HospitalComment on above:Performed By: #### CBCDF #### [address] [address]Bwuaagyvczr/100 WBC (Bld)1.3 %Normal0.0 - 6.0St. [facility] HospitalComment on above:Performed By: #### CBCDF #### [address] [address]Rzhpionejbq distribution width (RBC) [Ratio]13.3 %Oxpbhh80.5 - 14.5St. [facility] HospitalComment on above:Performed By: #### CBCDF #### [address] [address]Qsqhwshayz (Bld) [Volume fraction]38.3 %Qzbeqx64.0 - 46.0St. [facility] HospitalComment on above:Performed By: #### CBCDF #### [address] [address]Anohyszdwe (Bld) [Mass/Vol]12.8 g/nHJfdyoq28.0 - 16.0St. [facility] HospitalComment on above:Performed By: #### CBCDF #### [address] [address]Eessozoyugr (Bld) [#/Vol]1.22 10*3/uLNormal1.20 - 4.80St. [facility] HospitalComment on above:Performed By: #### CBCDF #### [address] [address]Tiphxvouuzv/100 WBC (Bld)11.2 %Mlzsfj17.0 - 44.0St. [facility] HospitalComment on above:Performed By: #### CBCDF #### [address] [address]VSHG (RBC) [Mass/Vol]33.4 g/dKSpksxw94.0 - 36.0St. [facility] HospitalComment on above:Performed By: #### CBCDF #### [address] [address]VHL (RBC) [Entitic vol]94 yVQwxcdj61 - 100St. [facility] HospitalComment on above:Performed By: #### CBCDF #### [address] [address]Tpvconsgf (Bld) [#/Vol]0.70 10*3/uLNormal0.10 - 1.00St. [facility] HospitalComment on above:Performed By: #### CBCDF #### [address] [address]Zsuckmvja/100 WBC (Bld)6.4 %Normal2.0 - 10.0St. [facility] HospitalComment on above:Performed By: #### CBCDF #### [address] [address]Atnvydulmed (Bld) [#/Vol]8.69 10*3/uLHigh1.20 - 7.70St. [facility] HospitalComment on above:Performed By: #### CBCDF #### [address] [address]Fmposhxjyes/100 WBC (Bld)79.4 %Ygegvy32.0 - 80.0St. [facility] HospitalComment on above:Performed By: #### CBCDF #### [address] [address]Ybiijiybu RBC/100 WBC (Bld) [Ratio]0.0 /100 WBCNormal0.0 - 0.0 [facility] – SeilingComment on above:Performed By: #### CBCDF #### [address], [place] [address]Vniosfeiw (Bld) [#/Vol]193 10*3/mBIztkdg442 - 450St. [facility] HospitalComment on above:Performed By: #### CBCDF #### [address] [address]ZVA (Bld) [#/Vol]4.06 x10E12/LNormal4.00 - 5.20St. [facility] HospitalComment on above:Performed By: #### CBCDF #### [address] [address]SVA (Bld) [#/Vol]10.9 10*3/uLNormal4.4 - 11.3St. [facility] HospitalComment on above:Performed By: #### CBCDF #### [address] [address]Epyahajl Blood Count + Differentialon 32-69-5765Bknhdcwec (Bld) [#/Vol]0.04 {x10E9/L}See KanvcZM-RPKHT-Ovhzer 310 IVF Work Phone: [phone] on above:Reference Range: 0.00 - 0.10 Basophils/100 WBC (Bld)0.4 %0.0 - 2.2AE-DVHAI-Owdwnd 310 IVF Work Phone: [phone] (Bld) [#/Vol]0.14 {x10E9/L}See Below CS-ZLRNO-Bbrtea 310 IVF Work Phone: [phone] on above:Reference Range: 0.00 - 0.70 Eosinophils/100 WBC (Bld)1.3 %0.0 - 6.7SN-VVEAW-Rkdarx 310 IVF Work Phone: [phone] distribution width (RBC) [Ratio]13.3 %See QstdyNM-NMBNY-Ouavtv 310 IVF Work Phone: [phone] on above:Reference Range: 11.5 - 14.5 Hematocrit (Bld) [Volume fraction]38.3 %See VciriCY-TZKPP-Huppfp 310 IVF Work Phone: [phone] on above:Reference Range: 36.0 - 46.0 Hemoglobin (Bld) [Mass/Vol]12.8 g/dLSee GsmizOO-ORTDH-Hapksb 310 IVF Work Phone: [phone] on above:Reference Range: 12.0 - 16.0 Lymphocytes (Bld) [#/Vol]1.22 {x10E9/L}See WcdccDX-YQSQA-Ywehhd 310 IVF Work Phone: [phone] on above:Reference Range: 1.20 - 4.80 Lymphocytes/100 WBC (Bld)11.2 %See GeeajXX-GPCHK-Ukvhnf 310 IVF Work Phone: [phone] on above:Reference Range: 13.0 - 44.0MCHC (RBC) [Mass/Vol]33.4 g/dLSee MwzqbCL-FPTMJ-Yakbdt 310 IVF Work Phone: [phone] on above:Reference Range: 32.0 - 36.0MCV (RBC) [Entitic vol]94 fL80 - 003ZB-FNDOB-Osvxwx 310 IVF Work Phone: [phone] (Bld) [#/Vol]0.70 {x10E9/L}See Below QB-HBDKV-Hiaixf 310 IVF Work Phone: [phone] on above:Reference Range: 0.10 - 1.00 Monocytes/100 WBC (Bld)6.4 %2.0 - 10.5RH-PHXWL-Yyszux 310 IVF Work Phone: [phone]/100 WBC (Bld)79.4 %See Below YA-YEZBX-Iuthfm 310 IVF Work Phone: [phone] on above:Reference Range: 40.0 - 80.0Platelets (Bld) [#/Vol]193 {x10E9/L}150 - 825LP-PGFQI-Jdudpq 310 IVF Work Phone: [phone] (Bld) [#/Vol]4.06 {x10E12/L}See Below JK-BAHYN-Yrsjyq 310 IVF Work Phone: Comment on above:Reference Range: 4.00 - 5.20WBC (Bld) [#/Vol]10.9 {x10E9/L}4.4 - 11.2YQ-ZGSFT-Poamqm 310 IVF Work Phone: WBC (Bld) [#/Vol]0.0 {/100_WBC}0.0 - 0.0 GS-QBSMD-Jwbhct 310 IVF Work Phone: Complete Blood Count + Differential1.3 %above high threshold0.0 - 0.2EO-WPHOO-Tdabzr 310 IVF Work Phone: Comment on above:Immature Granulocyte Count (IG) includes promyelocytes, myelocytes and metamyelocytes but does not include bands. Percent differential counts (%) should be interpreted in the context of the absolute cell counts (cells/L).Complete Blood Count + Differential8.69 {x10E9/L}above high thresholdSee QtxuvIZ-HQAWH-Jpscem 310 IVF Work Phone: Comment on above:Reference Range: 1.20 - 7.70GC + Chlamydia By Amplified Detectionon 03-22-2020C. trachomatis rRNA WESLEY+probe Ql (Unsp spec)BiztzljwSuwswlrlAA-HQLC-WECH [place] [address] M Work Phone: N. gonorrhoeae rRNA WESLEY+probe Ql (Unsp spec)Negative RyvzyxulCZ-VNJY-ZOTQ [place] [address] M Work Phone: Comment on above:SOURCE: UrineHEPATIC FUNCTION PANELon 77-47-9664Sfndnmy [Mass/Vol]3.0 g/dLLow3.4 - 5.0St. [facility] HospitalComment on above:Performed By: #### HEPFP #### [facility] [address] [place] [address]DBQ [Catalytic activity/Vol]62 U/UDskgcr64 - 110St. [facility] HospitalComment on above:Performed By: #### HEPFP #### [address] [address]NBU [Catalytic activity/Vol]17 U/LNormal7 - 45St. [facility] HospitalComment on above:Result Comment: Patients treated with Sulfasalazine may generate falsely decreased results for ALT.Performed By: #### HEPFP #### [address] [address]ZTS [Catalytic activity/Vol]16 U/LNormal9 - 39St. [facility] HospitalComment on above:Performed By: #### HEPFP #### [address] [address]Tfktngofh [Mass/Vol]0.3 mg/dLNormal0.0 - 1.2St. [facility] HospitalComment on above:Performed By: #### HEPFP #### [address] [address]Qjuyugeto.direct [Mass/Vol]0.0 mg/dLNormal0.0 - 0.3St. [facility] HospitalComment on above:Performed By: #### HEPFP #### [address] [address]Yzcrgsk [Mass/Vol]5.5 g/dLLow6.4 - 8.2[facility] Comment on above:Performed By: #### HEPFP #### [address] [address]Zhczjwt Function Panelon 91-32-8314Pnktpqx BCP dye [Mass/Vol] 3.0 g/dLbelow low threshold3.4 - 5.3WA-FIVNV-Etpete 310 IVF Work Phone: SLP [Catalytic activity/Vol]62 U/L33 - 110 VC-YSNVB-Dofyek 310 IVF Work Phone: [phone] With P-5'-P [Catalytic activity/Vol]17 U/L7 - 45 BD-XQRVR-Rhgjge 310 IVF Work Phone: [phone] on above:Patients treated with Sulfasalazine may generate falsely decreased results for ALT.AST With P-5'-P [Catalytic activity/Vol]16 U/L9 - 33PY-RNPBH-Aohhlc 310 IVF Work Phone: [phone] [Mass/Vol]0.3 mg/dL0.0 - 1.5JQ-BJZKM-Tsiknl 310 IVF Work Phone: [phone].direct [Mass/Vol]0.0 mg/dL0.0 - 0.3 TC-WMPQR-Ggbydq 310 IVF Work Phone: [phone] [Mass/Vol]5.5 g/dLbelow low threshold6.4 - 8.2 KG-WNRKS-Coapvj 310 IVF Work Phone: [phone] Panelon 94-89-8111Wncvi gap [Moles/Vol]13 mmol/L10 - 78PI-BSNGF-Gmqqgc 310 IVF Work Phone: [phone] [Mass/Vol]8.6 mg/dL8.6 - 10.6UL-WKJEQ-Suowex 310 IVF Work Phone: [phone] [Moles/Vol]105 mmol/L98 - 742PW-FQBPP-Qyruig 310 IVF Work Phone: [phone] [Moles/Vol]22 mmol/L21 - 70CL-UBIDZ-Nbatgz 310 IVF Work Phone: [phone] [Mass/Vol]0.54 mg/dLSee Below MU-MKLEU-Mzfate 310 IVF Work Phone: [phone] on above:Reference Range: 0.50 - 1.05Glucose [Mass/Vol]99 mg/dL74 - 78DO-MCHGM-Blchbd 310 IVF Work Phone: [phone] [Moles/Vol]4.0 mmol/L3.5 - 5.3 PE-WMHGB-Uevufc 310 IVF Work Phone: [phone] [Moles/Vol]136 mmol/L136 - 293OL-DEKXT-Emnpnp 310 IVF Work Phone: [phone] nitrogen [Mass/Vol]10 mg/dL6 - 32JV-BMPDJ-Dkpsdm 310 IVF Work Phone: [phone] 50-59-8522Zbijccirtjs by: JAYME CONTEH MAY03/22/20 16:35Indication======== Suspected Problem with Growth, Class 2 Obesity (BMI 35-39.9), Conceived via AssistedReproductive Technology, AMA Multigravida, RecurrentPregnancy Loss, Maternal Thyroid Disorder, Anxiety, Depression, Crohn's DIseaseHistory====== General HistorySmoking: NoHeight 157 cmHeight (ft) 5 ftHeight (in) 2 inPrevious Outcom esGravida 5Para 0Abortions (A) 4Miscarriages 4 Maternal Assessment Height 157 cmHeight (ft) 5 ftHeight (in) 2 inWeight 98 kgWeight (lb) 215 lbWeight gain 0 kgWeight gain (lb) 0 lbBMI39.32 kg/m?Physical ExamInitial weight (lb) 215 lb ========= Fritz . Number of fetuses: 1 Dating====== Conception: IVF Embryo TransferEmbryo transfer on: 09/08/2019IVF / ET 5 dGAby IVF / ET 30 w + 5 dEDD by IVF / ET: 05/26/2020Ultrasound examination on: 03/22/2020GA by U/S based upon: AC, BPD, Femur, HCGA by U/S 30 w + 3 dEDD by U/S: 1Assigned: based on the IVF / ET date, selected on 10/13/2019Assigned GA 30 w + 5 dAssigned LAURA: 1Pregnancy length 280 d FetalGrowth Overview Exam date GA BPD (mm) HC [...] upevaluation of growth is scheduled at 36 weeksunless indicated sooner. Thank you for allowingus to participate in the care of your patient. General Evaluation Cardiac activity present. FHR 134 bpm. movements visualized.Presentation cephalic.Placenta Placental site: posterior.Umbilical cord Cord vessels: 2 vessel cord.Amniotic fluid Amount of AF: normal amount. MVP 6.9 cm. MCKENNA 22.1 cm. Q1 6.9 cm, Q2 5.0 cm, Q3 4.4cm, Q4 5.8cm. Biometry StandardBPD 75.5 mm30w 2d 26% Hadlock OFD 100.5 mm 55% INTERGROWTH-21st HC 281.0 mm30w 6d 17% Hadlock Cerebellum tr 37.1 mm30w 4d 25% Hill AC 264.5 mm30w 4d 42% HadlockFemur 57.3 mm30w 0d 19% Hadlock HC / [...] gender: no Biophysical Profile 2: breathing movements2: Grossbody movements2: tone2: Amniotic fluid volume8/8 Biophysical profile score Maternal Structures Uterus / CervixUterus: VisualizedCervix: Not visualizedOvaries / Tubes / AdnexaRt ovary: Not visualizedLt ovary: Not visualized Method====== Transabdominal ultrasound examination. View: Poor viewElectronically signed by: JAYME RAMIREZ 03/22/20 16:55AuxjikTA-ZUXOI-Vfovsn 310 IVF Work Phone: Comment on above:ORDER REVISED TO A OB BIOPHYSICAL PROFILE (W/O NST) BY RADIOLOGIST; Original Order Number: [id number] REVISED TO A OB FOLLOW UP OR REPEAT SCAN BY RADIOLOGIST; Original Order Number: [id number]-WEQDN-Gvpknt 310 IVF Work Phone: Comment on above:CALCULATIONS OF ESTIMATED GFR ARE PERFORMED USING THE MDRD STUDY EQUATION FOR THE IDMS-TRACEABLE CREATININE METHODS. CLIN CHEM 2007;53:766-72TOTAL PROTEIN, URINE SPOTon 03-22-2020 CREATININE,URINECanceledNormalSt. U[facility] Callahan Eye HospitalComment on above:Order Comment: TEST TOTAL PROTEIN, URINE SPOT WAS CANCELLED, 03/22/2020 14:58 PT. [facility] PHLEBS UNABLE TO CONTAIN BLOOD, URINE SAMPLE WAS TAKEN AT OFFICE.Performed By: #### TPS2 #### [facility] [address] [place], [place] [address]L. PROTEIN/CREAT RATIOCanceledNormalSt. [facility] Comment on above:Order Comment: TEST TOTAL PROTEIN, URINE SPOT WAS CANCELLED, 03/22/2020 14:58 PT. CAME TO [facility] FROM DR. OFFICE PHLEBS UNABLE TO CONTAIN BLOOD, URINE SAMPLE WAS TAKEN AT OFFICE.Performed By: #### TPS2 #### [address] [place], [place] [address]BCWZT PROT,URINE SPOTCanceledNormalStMemorial Hospital Of Sher[facility] Comment on above:Order Comment: TEST TOTAL PROTEIN, URINE SPOT WAS CANCELLED, 03/22/2020 14:58 PT. CAME TO [facility] FROM DR. OFFICE PHLEBS UNABLE TO CONTAIN BLOOD, URINE SAMPLE WAS TAKEN AT OFFICE.Performed By: #### TPS2 #### [address] [place], [place] [address]IVRZ ACIDon 77-47-1621Nixzo [Mass/Vol]4.9 mg/dLNormal2.3 - 6.7 [facility] SeilingComment on above:Result Comment: Venipuncture immediately after or during the administration of Metamizole may lead to falsely low results. Testing should be performed immediately prior to Metamizole dosing.Performed By: #### URIC #### [address] [place], [place] [address]Gfrv Acid, Serumon 96-30-9922Uzomq [Mass/Vol]4.9 mg/dL2.3 - 6.5TZ-GJVJB-Qmxhgg 310 IVF Work Phone: Comment on above:Venipuncture immediately after or during the administration of Metamizole may lead to falsely low results. Testing should be performed immediately prior to Metamizole dosing.Cult, Urineon 42-57-5812Zvqocufs identified Cx Nom (U)PATIENT: WILD CALVO LOCATION: [facility] BILL#: [id number] : 76 AGE: SEX: FORDER#: [id number] ORDERED BY: RUBY CHOU: URINE COLLECTED: 03/10/20 16:47ANTIBIOTICS AT NEISHA.: RECEIVED : 03/11/20 00:30SITE: Unspecified R E S U L T S URINE CULTURE,BACTERIAL FINAL 03/12/2008:13 NO SIGNIFICANT GROWTH.JS-MPRZT-Vlemdg 310 IVF Work Phone: HCG,BETA-QUANTITATIVEon 09-30-2019 HCG,BETA-FAGUHOOCXTJK72016 mIU/[facility] HospitalComment on above:Result Comment: Low-level positive HCG results can be seen in [...] HCG measurement is performed using the [employer] Access Immunoassay which detects intact HCG and free beta HCG subunit. This test is not indicated for use as a tumor marker. HCG testing is performed using a different test methodology at [facility] than other [facility]. Direct result comparison should only be made within the same method. REF VALUES NON FEMALE <5 MALES <5Performed By: #### HCGQU #### [facility] [address] [place], [place] [address]JNR,BETA-QUANTITATIVEon 26-90-1481UZB,BETA-QHDNAUDWGMNV537 mIU/mLFormerly Franciscan HealthcareComment on above:Result Comment: Low-level positive HCG results can be seen in [...] HCG measurement is performed using the [employer] Access Immunoassay which detects intact HCG and free beta HCG subunit. This test is not indicated for use as a tumor marker. HCG testing is performed using a different test methodology at [facility] than other [facility]. Direct result comparison should only be made within the same method. REF VALUES NON FEMALE <5 MALES <5Performed By: #### HCGQU #### [facility] [address] [place], [place] [address]UGRAEUAVNXSBry 17-70-0582FVSPMEPSZAVP15.8 ng/[facility] Children's HospitalComment on above:Result Comment: Progesterone is performed using the [employer] Access Immunoassay. Progesterone testing is performed using a different test methodology at [facility] than other [facility]. Direct result comparison should only be made within the same method. REF VALUES MALE <0.2-0.8 FOLLICULAR PHASE <0.2-1.5 LUTEAL PHASE 7.4-15.4 POSTMENOPAUSAL <0.2-0.2 1ST TRIMESTER 12.0-84.0 2ND TRIMESTER 10.2-58.8 3RD TRIMESTER 46.5-160Performed By: #### PROG #### [facility] [address], [place] [id number] pg/Women and Children's HospitalComment on above:Result Comment: Estradiol measurement is performed using the [employer] Access Immunoassay. Estradiol testing is performed using a different test methodology at [facility] than other [facility]. Direct result comparison should only be made within the same method. REF VALUES FOLLICULAR PHASE 20-144 MID CYCLE 64-357 LUTEAL PHASE 56-214 POSTMENOPAUSE < 32 PREPUBERTY < 20 FEMALE 10-18Y 8-110 MALE 10-18Y < 20 ADULT MALE < 40Performed By: #### ESTRA #### [facility] [address], [place] [id number] [id number] ng/[facility] and Children's HospitalComment on above:Result Comment: Progesterone is performed using the [employer] Access Immunoassay. Progesterone testing is performed using a different test methodology at [facility] than other [facility]. Direct result comparison should only be made within the same method. REF VALUES MALE <0.2-0.8 FOLLICULAR PHASE <0.2-1.5 LUTEAL PHASE 7.4-15.4 POSTMENOPAUSAL <0.2-0.2 1ST TRIMESTER 12.0-84.0 2ND TRIMESTER 10.2-58.8 3RD TRIMESTER 46.5-160Performed By: #### PROG #### [facility] [address], [place] [address]Ylwvclqdacay, Serumon [id number] [Mass/Vol]ng/mL BQ-YMAQD-Imeqms 310 IVF Work Phone: Comment on above:Note new reference range as of 06/01/2019.REF VALUESMALE <0.3- 1.2 FOLLICULAR PHASE <0.3- 1.4LUTEAL PHASE 3.3- 25.6 MID-LUTEAL PHASE 4.4-28.0POSTMENOPAUSAL <0.3- 0.7 FEMALES: 1ST TRIM ELOISA 11.2- 90.0 2ND TRIMESTER 25.6- 89.4 3RD TRIMESTER 48.4-422.5 .Patients receiving DHEA-S supplements may show false elevation ofprogesterone for results near 1.0 ng/mL. Contact laboratory [phone] if alternative testing is needed.FLUOROSCOPY, UP TO 1 HRon [id number], UP TO 1 HRMRN: [id number] Patient Name: WILD CALVO STUDY: FLUOROSCOPY, UP TO 1 HR;; 06/11/2019 2:34 pm INDICATION: LEFT CALCANEAL SPUR RESECTION. COMPARISON: None. ACCESSION NUMBER(S): [id number] ORDERING CLINICIAN: CHRISTOPHER HARRIS TECHNIQUE: 2 C-arm views FINDINGS: The initial C-arm view demonstrates a calcaneal posterior enthesophyte, and globular calcification superior to this at the Achilles tendon. There has been resection of these entities on the 2nd image submitted, with 2 anchors at the os calcaneus posteriorly. IMPRESSION: Postsurgical changes as described. Electronically signed by: PORFIRIO ANDRADE [facility] History and Physical - Surgical Update < 30 dayson [id number] and Physical - Surgical Update < 30 daysHistory & Physical Reviewed: /Lactating: Are You no [...] physician responsible for performing the procedure: yes Signatures/Attestation/Certification: Note Completion: I am a: Resident/Fellow Attending AttestationI saw and evaluated the patient. I personally obtained the mobley and critical portions of the history and physical exam or was physically present for mboley and critical portions performed by the resident/fellow. I reviewed the resident/fellows documentation and discussed the patient with the resident/fellow. I agree with the resident/fellows medical decision making as documented in the note. I personally evaluated the patient [id number] Attending Provider Inpatient Certification StatementI certify this patients need for inpatient care based on the above documentation including; the order to admit as inpatient, the anticipated length of stay, diagnosis, problem list and plan of care, and discharge plan. Electronic Signatures: Christopher Harris (DPFerdinand) (Signed 11-Jun-2019 14:53) Authored: Signatures/Attestation/Certification Co-Signer: History & Physical Reviewed, Signatures/Attestation/Certification Jayne Martin (CARLOS (Resident)) (Signed 11-Jun-2019 12:32) Authored: History & Physical Reviewed, Signatures/Attestation/Certification Last Updated: 11-Jun-2019 14:53 by Christopher Harris (DPFerdinand) References: 1. Data Referenced From Patient Profile - Preop v2 10-Jun-2019 13:58[facility] HospitalOperative Reports - [place] [id number] Reports - [id number] ADJUNCT INSTRUCTOR CHEMISTRY: Cruz Robles DPM, PGY-3 PREOPERATIVE DIAGNOSES: 1. Ruptured left Achilles tendon. 2. Posterior calcaneal spur, left, Elfego's. POSTOPERATIVE DIAGNOSES: 1. Ruptured left Achilles tendon. 2. Posterior calcaneal spur, left, Elfego's. PROCEDURE: 1. Repair of chronic Achilles tendon rupture, left. 2. Resection of calcaneal spur, left calcaneus. 3. Injection of platelet rich plasma, left Achilles. 4. Gastroc recession, left. ESTIMATED BLOOD LOSS: Minimal. IMPLANTS: [place] knotless system and 10X system. ANESTHESIA: General. [...] anchored back onto the calcaneus using the water resources program director's recommended technique for the above said Gia [...] plasma, which was spun down using the water resources program director's recommended technique. The patient was then placed [...] Christopher Harris DPM EST EST DICTATION NUMBER: [id number] INTERNAL JOB NUMBER: [id number] Electronic Signatures: Christopher Harris (CARLOS) (Signed on 06-Jul-2019 23:08) Authored Unsigned, Draft (SYS GENERATED) (Entered on 25-Jun-2019 13:30) Entered Unsigned, Draft (SYS GENERATED) (Entered on 24-Jun-2019 11:37) Entered Last Updated: 06-Jul-2019 23:08 by Christopher Harris (CARLOS)[facility] Histologyon [id number] HistologyName WILD CALVO Pathologist: DILLON PAZ MD Date of Procedure: 06/11/2019 Date Received: 06/11/2019 Date Reported 06/16/2019 Submitting Physician: CHRISTOPHER HARRIS DPM Location: Other External # FINAL DIAGNOSIS RIGHT FOOT BONE SPUR CALCANEOUS, RESECTION: -- BONE AND ATTACHED FIBROCARTILAGINOUS TISSUE WITH DEGENERATIVE CHANGES AND FOCAL BONE REMODELING. Electronically Signed Out By DILLON PAZ MD/TNJessi By the signature on this report, the [...] measuring 2.5 x 1.5 x 1.5 cm. Librarian Head sections are submitted in one cassette following decalcification. RLM rlm/3/NoUniversity Hospitals Lake West Medical CenterComment on above:Performed By: #### PAH #### [facility] [address] [address] [facility] [address] Checkliston [id number] ChecklistPreop Checklist: Preop Checklist: Arrival [id number] Arrival Time10:13 Procedure TypeLEFT ACHILLES TENDON REPAIR Temperature C36.9 degrees C Temperature F98.4 degrees F Heart Rate72 beats per minute Respiratory Rate20 breath per minute Blood Pressure Mjtutnha513 mm/Hg Blood Pressure Ecenuxhow90 mm/Hg ID Band Onyes Allergy Bandno known [...] Checklist Last Updated: 11-Jun-2019 10:16 by Scarlet Stein (EVA)[facility] HospitalCBC AND DIFFERENTIALon 06-07-2019% AUTOMATED IMMATURE GRAN0.3 %Normal0.0 - 0.9[facility] SanitariumComment on above:Result Comment: Immature Granulocyte Count (IG) includes promyelocytes, myelocytes and metamyelocytes but does not include bands. Percent differential counts (%) should be interpreted in the context of the absolute cell counts (cells/L).Performed By: #### CBCDF #### [facility] [address] [place] [address]Rrrvocshp (Bld) [#/Vol]0.06 10*3/uLNormal0.00 - 0.10[facility] SanitariumComment on above:Performed By: #### CBCDF #### [address] [address]Enctbcyzy/100 WBC (Bld)0.8 %Normal0.0 - 2.0[facility] SanitariumComment on above:Performed By: #### CBCDF #### [address] [address]Xbeyatbuunw (Bld) [#/Vol]0.22 10*3/uLNormal0.00 - 0.70[facility] SanitariumComment on above:Performed By: #### CBCDF #### [address] [address]Kqcnizkcjkn/100 WBC (Bld)2.9 %Normal0.0 - 6.0[facility] SanitariumComment on above:Performed By: #### CBCDF #### [address] [address]Yxkkegkoqvj distribution width (RBC) [Ratio]12.3 %Ruyfxj24.5 - 14.5[facility] SanitariumComment on above:Performed By: #### CBCDF #### [address] [address]Unntmrytun (Bld) [Volume fraction]42.6 %Yybsjc16.0 - 46.0[facility] SanitariumComment on above:Performed By: #### CBCDF #### [address] [address]Kgqbdajcct (Bld) [Mass/Vol]13.9 g/jEBqdmao82.0 - 16.0[facility] SanitariumComment on above:Performed By: #### CBCDF #### [address] [address]Dneyfhgryaf (Bld) [#/Vol]1.79 10*3/uLNormal1.20 - 4.80[facility] SanitariumComment on above:Performed By: #### CBCDF #### [address] [address]Iogigymyaww/100 WBC (Bld)23.8 %Iloppz88.0 - 44.0[facility] SanitariumComment on above:Performed By: #### CBCDF #### [address] [address]IRFU (RBC) [Mass/Vol]32.6 g/vSQqfags99.0 - 36.0[facility] SanitariumComment on above:Performed By: #### CBCDF #### [address] [address]CMU (RBC) [Entitic vol]95 qLCvdwet95 - 100[facility] Comment on above:Performed By: #### CBCDF #### [address] [address]Goaisvzxj (Bld) [#/Vol]0.41 10*3/uLNormal0.10 - 1.00[facility] SanitariumComment on above:Performed By: #### CBCDF #### [address] [address]Wrmzzijze/100 WBC (Bld)5.5 %Normal2.0 - 10.0[facility] SanitariumComment on above:Performed By: #### CBCDF #### [address] [address]Pwrpgzuicgm (Bld) [#/Vol]5.02 10*3/uLNormal1.20 - 7.70[facility] SanitariumComment on above:Performed By: #### CBCDF #### [address] [address]Srmybrkumqa/100 WBC (Bld)66.7 %Qhwpzp65.0 - 80.0[facility] SanitariumComment on above:Performed By: #### CBCDF #### [address] [address]Fqncpkphe RBC/100 WBC (Bld) [Ratio]0.0 /100 WBCNormal0.0 - 0.0[facility] SanitariumComment on above:Performed By: #### CBCDF #### [address] [address]Lfwsrmnog (Bld) [#/Vol]271 10*3/cQLgjdni455 - 450[facility] Regional Medical CenterComment on above:Performed By: #### CBCDF #### [address] [address]THB (Bld) [#/Vol]4.50 x10E12/LNormal4.00 - 5.20[facility] SanitariumComment on above:Performed By: #### CBCDF #### [address] [address]QVK (Bld) [#/Vol]7.5 10*3/uLNormal4.4 - 11.3[facility] SanitariumComment on above:Performed By: #### CBCDF #### [address] [address]KOHZBUFPZQFVP PANELon 19-70-5416Krajtqo [Mass/Vol]4.1 g/dLNormal 3.4 - 5.0[facility] SanitariumComment on above:Performed By: #### CMP #### [address] [address]JMK [Catalytic activity/Vol]45 U/SFwmixv13 - 110L[facility] SanitariumComment on above:Performed By: #### CMP #### [address] [address]COY [Catalytic activity/Vol]31 U/LNormal7 - 45L[facility] SanitariumComment on above:Result Comment: Patients treated with Sulfasalazine may generate falsely decreased results for ALT.Performed By: #### CMP #### [address] [address]Fowot gap [Moles/Vol]11 mmol/UVetslg60 - 20[facility] SanitariumComment on above:Performed By: #### CMP #### [address] [address]OSK [Catalytic activity/Vol]23 U/LNormal9 - 39[facility] SanitariumComment on above:Performed By: #### CMP #### [address] [address]Dpsontaej [Mass/Vol]0.3 mg/dLNormal0.0 - 1.2[facility] SanitariumComment on above:Performed By: #### CMP #### [address] [address]Ltrujjj [Mass/Vol]9.1 mg/dLNormal8.6 - 10.3[facility] Medical CenterComment on above:Performed By: #### CMP #### [address] [address]Oqpkaoau [Moles/Vol]104 mmol/BWporeb36 - 107[facility] Medical CenterComment on above:Performed By: #### CMP #### [address] [address]Nilogkegka [Mass/Vol]0.76 mg/dLNormal0.50 - 1.05[address] [facility] Medical CenterComment on above:Performed By: #### CMP #### [address] [address]OTV-YZIUFYN AM.>60Normal>60[facility] Regional Medical CenterComment on above:Result Comment: CALCULATIONS OF ESTIMATED GFR ARE PERFORMED USING THE MDRD STUDY EQUATION FOR THE IDMS-TRACEABLE CREATININE METHODS. CLIN CHEM 2007;53:766-72Performed By: #### CMP #### [address], [place] [address]JPM-KQF AM.>60Normal>60[facility] SanitariumComment on above:Performed By: #### CMP #### [address] [address]Bsgubat [Mass/Vol]101 mg/oCUjmf96 - 99[facility] Comment on above:Performed By: #### CMP #### [address] [address]SYD0 (Bld) [Moles/Vol]28 mmol/QJnznwv89 - 32L[facility] SanitariumComment on above:Performed By: #### CMP #### [address] [address]Rjlcxufee [Moles/Vol]4.0 mmol/LNormal3.5 - 5.3[facility] SanitariumComment on above:Performed By: #### CMP #### [address] [address]Rkwqqjj [Mass/Vol]6.3 g/dLLow6.4 - 8.2[facility] Comment on above:Performed By: #### CMP #### [facility] [address] [place], [place] [address]Eraeuw [Moles/Vol]139 mmol/BTuvpds110 - 145L[facility] SanitariumComment on above:Performed By: #### CMP #### [facility] [address] [place], [place] [address]Nbcw nitrogen [Mass/Vol]16 mg/dLNormal6 - 23L[facility] SanitariumComment on above:Performed By: #### CMP #### [facility] [address] [place], [place] [address]Unnpyqrtgcbs, Serumon 87-41-2615Qhwlhcpnfcju [Mass/Vol]9.5 ng/mL GQ-MXQQU-Asqtgw 310 IVF Work Phone: Comment on above:Patients receiving DHEA-S supplements may show false elevation ofprogesterone for results near 1.0 ng/mL. Contact laboratory [phone] if alternative testing is needed.REF VALUESMALE <0.2-0.8FOLLICULAR PHASE <0.2-1.5 LUTEAL PHASE 7.4-15.4 POSTMENOPAUSAL <0.2-0.2 1ST TRIMESTER 12.0-84.0 2ND TRIMESTER 10.2-58.8 3RD TRIMESTER 46.5-160 Progesterone, Serumon 76-06-6148Ltrvqhngavhq [Mass/Vol]0.2 ng/kSLK-AIOZM-Wwqmru 310 IVF Work Phone: Comment on above:Patients receiving DHEA-S supplements may show false elevation ofprogesterone for results near 1.0 ng/mL. Contact laboratory [phone] if alternative testing is needed.REF VALUESMALE <0.2-0.8FOLLICULAR PHASE <0.2-1.5 LUTEAL PHASE 7.4-15.4 POSTMENOPAUSAL <0.2-0.2 1ST TRIMESTER 12.0-84.0 2ND TRIMESTER 10.2-58.8 3RD TRIMESTER 46.5-160CBC AND DIFFERENTIALon 2019% AUTOMATED IMMATURE GRAN1.8 %High0.0 - 0.9Formerly Franciscan HealthcareComment on above:Result Comment: Percent differential counts (%) should be interpreted in the context of the absolute cell counts (cells/L).Performed By: #### CBCDF #### [facility] [address] [place], [place] [address]Jlhkrahpu (Bld) [#/Vol]0.11 10*3/uLHigh0.00 - 0.10Formerly [facility] HealthcareComment on above:Performed By: #### CBCDF #### [facility] [address] [place], [place] [address]Hmgrzkeql/100 WBC (Bld)0.9 %Normal0.0 - 2.0Formerly Franciscan HealthcareComment on above:Performed By: #### CBCDF #### [facility] [address] [place], [place] [address]Gbywdpsagaf (Bld) [#/Vol]0.10 10*3/uLNormal0.00 - 0.70Formerly [facility] HealthcareComment on above:Performed By: #### CBCDF #### [facility] [address] [place], [place] [address]Bkehmmwujnc/100 WBC (Bld)0.8 %Normal0.0 - 6.0Formerly Franciscan HealthcareComment on above:Performed By: #### CBCDF #### [facility] [address] [place], [place] [address]Wgnorzqpkjj distribution width (RBC) [Ratio]13.2 %Eofsfu76.5 - 14.5Formerly Franciscan HealthcareComment on above:Performed By: #### CBCDF #### [facility] [address] [place], [place] [address]Aplybazkvq (Bld) [Volume fraction]45.4 %Dywshf40.0 - 46.0Formerly Franciscan HealthcareComment on above:Performed By: #### CBCDF #### [facility] [address] [place], [place] [address]Tyebvbbqra (Bld) [Mass/Vol]14.9 g/dTSppsje35.0 - 16.0Formerly Francisc[facility] HealthcareComment on above:Performed By: #### CBCDF #### [facility] [address] [place], [place] [address]Cwtgtojvxvn (Bld) [#/Vol]2.48 10*3/uLNormal1.20 - 4.80[facility] CampusComment on above:Performed By: #### CBCDF #### [facility] [address] [place], [place] [address]Gppqyyzjqfv/100 WBC (Bld)20.8 %Jdgzfd85.0 - 44.0[facility] CampusComment on above:Performed By: #### CBCDF #### [facility] [address] [place], [place] [address]JCAR (RBC) [Mass/Vol]32.8 g/sEJvzzbm02.0 - 36.0[facility] CampusComment on above:Performed By: #### CBCDF #### [facility] [address] [place], [place] [address]IYE (RBC) [Entitic vol]94 uJUgsjry03 - 100[facility] CampusComment on above:Performed By: #### CBCDF #### [facility] [address] [place], [place] [address]Dmnjocjxh (Bld) [#/Vol]0.59 10*3/uLNormal0.10 - 1.00[facility] CampusComment on above:Performed By: #### CBCDF #### [facility] [address] [place], [place] [address]Slqthojpf/100 WBC (Bld)4.9 %Normal2.0 - 10.0[facility] CampusComment on above:Performed By: #### CBCDF #### [facility] [address] [place], [place] [address]Tifdxaynqzn (Bld) [#/Vol]8.43 10*3/uLHigh1.20 - 7.70[facility] CampusComment on above:Performed By: #### CBCDF #### [facility] [address] [place], [place] [address]Vqwpeprbxcd/100 WBC (Bld)70.8 %Qvemuq72.0 - 80.0[facility] CampusComment on above:Performed By: #### CBCDF #### [facility] [address] [place], [place] [address]Snxvcgxkb (Bld) [#/Vol]216 10*3/qILuatse529 - 450[facility] CampusComment on above:Performed By: #### CBCDF #### [facility] [address] [place], [place] [address]PZI (Bld) [#/Vol]4.84 x10E12/LNormal4.00 - 5.20[facility] CampusComment on above:Performed By: #### CBCDF #### [facility] [address] [place], [place] [address]QQY (Bld) [#/Vol]11.9 10*3/uLHigh4.4 - 11.3[facility] CampusComment on above:Performed By: #### CBCDF #### [facility] [address] [place], [place] [address]BKV,BETA-QUANTITATIVEon 07-81-7190GYU,BETA-QUANTITATIVE<2 NormalFormerly Franciscan HealthcareComment on above:Result Comment: Low-level positive HCG results can be seen in [...] HCG measurement is performed using the [employer] Access Immunoassay which detects intact HCG and free beta HCG subunit. This test is not indicated for use as a tumor marker. HCG testing is performed using a different test methodology at [facility] than other [facility]. Direct result comparison should only be made within the same method. REF VALUES NON FEMALE <5 MALES <5Performed By: #### HCGQU #### [facility] [address] [place], [place] [address]ZFJOEZPRBVSUyw 65-73-9586BOXIZHIZGGQA19.0 ng/mLNormalUH [facility] CampusComment on above:Result Comment: Progesterone is performed using the [employer] Access Immunoassay. Progesterone testing is performed using a different test methodology at [facility] than other [facility]. Direct result comparison should only be made within the same method. REF VALUES MALE <0.2-0.8 FOLLICULAR PHASE <0.2-1.5 LUTEAL PHASE 7.4-15.4 POSTMENOPAUSAL <0.2-0.2 1ST TRIMESTER 12.0-84.0 2ND TRIMESTER 10.2-58.8 3RD TRIMESTER 46.5-160Performed By: #### PROG #### [facility] [address] [place], [place] [address]HCS,BETA-QUANTITATIVEon 88-53-1949VZW,BETA-CEHCPSXMEAMT89 mIU/mLFormerly Francisc[facility] HealthcareComment on above:Result Comment: Low-level positive HCG results can be seen in [...] HCG measurement is performed using the [employer] Access Immunoassay which detects intact HCG and free beta HCG subunit. This test is not indicated for use as a tumor marker. HCG testing is performed using a different test methodology at [facility] than other [facility]. Direct result comparison should only be made within the same method. REF VALUES NON FEMALE <5 MALES <5Performed By: #### HCGQU #### [facility] [address] [place], [place] [address]AUGBASOTLBBAyp 36-79-6419JUJUKYIZRFVI05.6 ng/mLNFirstHealth Moore Regional Hospital - RichmondComment on above:Result Comment: Progesterone is performed using the Nhan Malcolm Access Immunoassay. Progesterone testing is performed using a different test methodology at [facility] than other [facility]. Direct result comparison should only be made within the same method. REF VALUES MALE <0.2-0.8 FOLLICULAR PHASE <0.2-1.5 LUTEAL PHASE 7.4-15.4 POSTMENOPAUSAL <0.2-0.2 1ST TRIMESTER 12.0-84.0 2ND TRIMESTER 10.2-58.8 3RD TRIMESTER 46.5-160Performed By: #### PROG #### [facility] [address] [place], [place] [address]Izv/Pathon 64-99-5481Emvbcicm report Cyto stain.thin prep Doc (Cvx/Vag)MP-Reproductive Endocrinology-[place] [address] Work Phone: Otheron [phone] #: [id number] Date of Procedure: 07/29/2018 Pathologist: [facility], CytologyDate Reported: 08/05/2018Date Received: 07/29/2018Submitting Physician: JAMSHID [...] amplifies DNA of HPV16, HPV18 and 12 otherhigh-risk HPV types(31, 33, 35, 39, 45, 51, 52, 56, 58, 59, 66, and 68) associated with cervicalcancer and its precursor lesions. A positive result indicates the presence ofHPV DNA due to one or moreof the 14 genotypes: 16, 18, 31, 33, [...] Results of this test should be interpreted inconjunction withthe patient's Pap test results. Please refer to ASCCP current guidelines forthe useof HPV DNA testing, result interpretation, and patient management. The performance of this test wasverified by the [facility] DiagnosticLabor[facility] at [facility]. The lab iscertified under the Clinical Laboratory Amendments of 1988 (CLIA 88) asqualified to perform high complexity clinical laboratory testing.This specimen has been analyzed by the Harvard UniversityPrep Imaging System ([employer]an automated imaging and review system, which assists the laboratory inevaluating cells on ThinPrep Pap tests. Following automated imaging, selectedfields from every slide were reviewed by a bunk house worker and/or pathologist.Electronically Signed Out By [facility], Cytology//J By the signature on this report, the individual or group listed as making theFinal Interpretation/Diagnosis certifies that they have reviewed this case.Educational Note:Cervical cytology is a screening procedure primarily for squamous cancers andprecursors and has associated false-negative and false-positive results asevidenced by published data. Your patient's test should be interpreted in thiscontext, together with patient's history and clinical findings. Regularsamp ling and follow-up of unexplained clinical signs and symptoms arerecommended to minimize false negative results. Clinical HistoryDate of Last Menstrual Period: 07/08/2018Other Clinical Conditions:HPV Testing for All Interpretations - Include HPV Genotype Source of SpecimenA: THINPREP PAP CERVICALMP-Reproductive Endocrinology-[place] 206 Work Phone: mamm - Screening Mammogram w/ Tomosynthesison 08-31-4815NQ Breast screeningInterpreted by: MONSTER CHANDLER08/04/18 15:48MRN: [id number] Name: SULMAWILD MOBLEY STUDY:DIGITAL MAMM SCREENING W/ FERNIE; 07/28/2018 1:40 [...] any future breast imaging appointments, please call [phone]). Patient letter sent SOFNOR I personally reviewed the images/study and I agree with the findingsasstated. This study was interpreted at [facility], [place], [place].Electronically signed by: MONSTER LEROY 08/04/18 15:48NormalMP-Reproductive Endocrinology-[place] [address] Work Phone: Comment on above:ORDER REVISED TO A DIGITAL MAMM SCREENING W/ FERNIE BY RADIOLOGISTOtheron 13-04-7851Azishe click on the link to view the study imagesNormal-Reproductive Endocrinology-[place] 206 Work Phone: ABDOMEN OR KUBon [phone] OR KUBSTUDY:ABDOMEN OR KUB; 02/27/2018 4:57 pmINDICATION:STONES.COMPARISON:KUB 08/20/2017ACCESSION NUMBER(S):[id number] CLINICIAN:Og CullenFINDINGS:Right upper quadrant clips. No definite renal pelvic calculi.Nonobstructive bowel gas pattern. Moderate colonic stool burden. Nofindings of organomegaly.IMPRESSION:No definite renal calculi.[facility] - DouglasABDOMEN OR KUBon [id number] OR KUBSTUDY:ABDOMEN OR KUB; 07/31/2017 4:40 pmINDICATION:HX OF STONES.COMPARISON:No available comparisonsACCESSION NUMBER(S):[id number] CLINICIAN:Og AguirreECHNIQUE:Two views of the abdomenFINDINGS:5 mm calculus in the region of the left mid ureter at the level ofthe transverse process of L3 vertebral body.Cholecystectomy surgical clips in the right upper quadrant.The bowel gas pattern is nonspecific and nonobstructive. Thevisualized osseous structures are intact. 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 She waspositioned supine on the lithotripsy table with a wedge of the right flank andthe stone was clearly seen in the mid ureter and treated with 3000 shocks andmaximum KV of 6, and appeared to fragment, although there appeared to be someareas of incomplete fragmentation. The patient was awakened, taken torecovery room in satisfactory condition. She will be dischargedhome withFlomax, Percocet, and Cipro. She will strain the urine to catch the stonefragments, followup in the office in 3 weeks with a KUB film. Og CULLEN M.D.[facility] [place]/[facility]/[id number]: 08/01/2017 14:03:15 cc: Og Cullen M.D. [facility] WILD CALVO [id number] [place] [address] [id number]: Og Cullen,OPERATIVE REPORTFax: [phone]/S: Og Cullen, 08/06/17 1218Electronically Signed ___[facility] WILD CALVO [id number] [place] [address] [id number]: Og Cullen,OPERATIVE REPORTNoCastle Rock Hospital DistrictABDOMEN OR KUBon 07-30-2017 ABDOMEN OR KUBSTUDY:ABDOMEN OR KUB; 07/30/2017 2:09 pmINDICATION:KIDNEY STONES.COMPARISON:None. CLINICIAN:Og CullenFINDINGS:Nonobstructive bowel gas pattern.The study is of limited [...] Probable left ureteral calculus at the L3 level.NormalSaint [facility]ab [facility] CULTURE URINE W CCon [phone] URINE W CCURINE CULTURE URINE CONTAMINATED WITH NORMAL SKIN LASHELL NO URINARY PATHOGENS ISOLATED SUGGEST REPEAT IF CLINICALLY INDICATEDNoCastle Rock Hospital DistrictComment on above:Performed By: #### MURINE ####[facility] [place] [id number] and Physical Estefany 87-80-0530Ewrguzk and Physical PATST. [facility] Pt Name: WILD CALVO [id number] [facility] MR # [id number] [address] : 76* * * * * * * * History and Physical PAT * * * * * * * *History of Present IllnessDate of Bxwtswv00/02/18ource of InformationPatientChief Complaint/Present Suzanne salehHPIPatient woke up in the middle of the night week ago with severe left flank pain. It hasbeen almost constant since. It radiates anteriorly. It reaches a 10/10 at its worst. Shedenies hematuria, dysuria, and urinary frequency. Evaluation revealed kidney stones.PROBLEM LISTProblem L istMedical ProblemsAnxiety and depressionCrohn's diseaseHypothyroidKidney stonesSurgical ProblemsHistory of cholecystectomyHistory of colonoscopyHistory of foot surgeryHistory of laparoscopyHistory of tonsillectomy and adenoidectomySocial History ProblemsNo illicit drug useNonsmokerOccasional alcohol consumptionFamily HistoryRelation not specified for:Heart diseaseHypertensionKidney stonesSeizuresAllergies/Home MedicationsAllergiesCoded Allergies:NO KNOWN ALLERGENS (07/30/17)Home Meds ReviewedIhave reviewed the patient's Home Medication List.Home Medication [...] ADAME on 07/30/17 133Last Action: Reviewed on 05/05/18 1334 by NIMESH ADAME DLevothyroxine Sodium *(Synthroid *) 50 MCG TABLET 50 MCG PO DAILY@6AM, Ref 0(Reported)Entered as Reported by NIMESH ADAME on 07/30/171331Last Action: Reviewed on 07/30/171334 by NIMESH ADAME DMel atonin *3 MG TABLET 3 MG PO QHSPRN PRN SLEEP, Ref 0(Reported)Entered as Reported by JUAN DIEGO ADAME on 07/30/174Last Action: Reviewed on 07/30/171334 by NIMESH ADAME DMultivitamin *1 TABLETTABLET 1 TABLET PO DAILY, Ref 0(Reported)Entered as [...] Reviewed on 07/30/171334 by NIMESH ADAME DDiscontinued MedicationsEstradiol*(Estrace*) 2 MG TABLET 2 MG PO DAILY [...] Occasional nausea with severe flank painGUPositive: As aboveMusculoskeletal/lymphaticsNegative: back pain, leg pain, neck pain, jointpain, ankle swelling, leg swelling,swollen glandsSkinNegative: rash, lesionsNeuroNegative: fainting, dizziness, difficulty walking, difficulty with speech, syncope, nearsyncopePositive: Occasional mild headachePsychPositive: anxiety, depression (she denies suicidal/homicidal ideation)EndocrineNegative: weight loss, weight gain, poor wound healing, neuropathyPatient is able to climb a flight of stairs without chest pain or shortness of breathPhysical ExamVital SignsTemp (C)36.9Gsmqe63Jemkmnsqgncy52Dickp Uhblqhld956/79Pulse-Ox%99Height - Ttpd8Mwqypn0Myhjcg - Pm858PamslcpuwdMmymciy AppearanceWell Developed/Nourished, Alert, Oriented X 3, Cooperative. Patient appears uncomfortableHEENTHead Atrau matic, Normocephalic, PERRL, Hearing grossly normal, Mucosa Moist, PatentAirway.NeckSupple, Non tender, Without JVD, Without Thyromegaly.CardiovascularRate WNL, Rhythm regular.RespiratoryBilaterally Clear, No Respiratory Distress.NeuroSpeech Clear, Moves all extremities.AbdomenBowel Sounds Present,Abdomen soft, Non-Tender, No distention. Left CVA tendernessExtremityNo Pedal Edema.Assessment and Plan (PAT)Assessment and PlanAssessment and PlanPatient is a 37-year-old female for ESWL today. 07/28 UA/CS, CBC, PT/PTT, and BMPenclosed in chart. 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 Og CULLEN M.D.[facility] [place]/MedQ/[id number]: 07/30/2017 17:48:32 cc: Og Cullen M.D.Fax: [phone] ____[facility] WILD CALVO [id number] [place] [address] [id number]: Og Cullen,OPERATIVE REPORTE/S: Og Cullen, 08/06/17 1218Electronically Signed ___[facility] WILD CALVO [id number] [place], [place] [id number]: Og Cullen,OPERATIVE REPORTNormalSLafene Health CenterPREG URINE QUALon 10-40-7255VY HCG QUALNegativeNormalSLafene Health CenterComment on above: Order Comment: Specimen Comment: PT IS GOING TO OPS TODAYCampus: MAINPerformed By: #### LUPREG ####[facility] Y[address] [place] [address] BASIC METABOLIC PANELon 08-97-3253Ptkct gap 3 molar conc9 mmol/LNormal6-18SLafene Health CenterComment on above:Order Comment: Is patient fasting? NO Performed By: #### LORENA BRAUNFRP ####[facility] M[address]yrt[address] [place] [address]Jcqszqq mass conc9.1 mg/dLNormal8.6-10.3SLafene Health CenterComment on above:Order Comment: Is patient fasting? NOPerformed By: #### KADE LGFRP ####[facility] Wnrgvnhoro[address]125 [place], [place] [address]Idjzinsp molar tfpv208 mmol/ZJugqdt10-620OcxwqWashakie Medical Center - WorlandComment on above:Order Comment: Is patient fasting? NOPerformed By: #### KADE LGFRP ####[facility] Bweqbudzuh[address]10 [place], [place] [address]NH4 molar conc29 mmol/LNormal 21-32SaCrossRoads Behavioral HealthComment on above:Order Comment: Is patient fasting? NOPerformed By: #### KADE LGFRP ####[facility] Dxm[address]qtwxj62913 [place], [place] [address]Ahbujjfmur mass conc1.18 mg/dLHigh0.5-1.05W[facility] Center - WorlandComment on above:Order Comment: Is patient fasting? NOPerformed By: #### NAUN BRAUNP ####[facility] O[address] [place] [address]Pgqsbam mass conc87 mg/jTKsssff69-74HwwblWashakie Medical Center - WorlandComment on above:Order Comment: Is patient fasting? NOPerformed By: #### KADE, LGFRP ####[facility] Y[address]xr[address] [place] [address]Gkuvpndcn molar conc 4.1 mmol/LNormal3.5-5.3SLafene Health CenterComment on above:Order Comment: Is patient fasting? NOPerformed By: #### NAUN BRAUNP ####[facility] Cp[address] [place] [address]Cnpksn molar cvtq507 mmol/OOhierk152-253PqlfaWashakie Medical Center - WorlandComment on above:Order Comment: Is patient fasting? NO Performed By: #### LORENA BRAUNFRP ####[facility] T[address] [place] [address]Nela nitrogen mass conc22 mg/dLNormal6-23W[facility] Center - WorlandCommclaren [place] on above:Order Comment: Is patient fasting? NOPerformed By: #### KADE LGFRP ####[facility] Gdhzolp[address] [place] [address]FIY AUTOon 75-57-5392Bxjicqcwnot distribution width Auto Ratio (RBC)12.6 % Egyuav54.5-14.5SLafene Health CenterComment on above:Performed By: #### LCBC ####[facility] Rk[address]xc[address] [place] [address]Tmaxzfyxwr Auto Volume Fraction (Bld)37.0 %Istvbf55.0-48.0W[facility] Medical Center - WorlandComment on above:Performed By: #### LCBC ####[facility] [address]vxr[address] [place] [address] 187[address]Btecqxktse mass conc (Bld)11.9 g/dLLow12.0-15.0W[facility] Center - WorlandComment on above:Performed By: #### LCBC ####[facility] Hjutptmyjn[address] [place], [place] [address]QQW Auto Entitic mass (RBC)31.6 pgNormal 25.4-34.6W[facility] Medical Center - WorlandComment on above:Performed By: #### LCBC ####[facility] Iiohwbepuy25064 [place], [place] [address]ECHX Auto mass conc (RBC)32.2 g/vJBxgyls12.0-36.0W[facility] Center - WorlandComment on above:Performed By: #### LCBC ####[facility] G[address]bpsl[address] [place] [address]GEU Auto Entitic volume (RBC)98.4 oXWyvo16.0-98.0[facility] Center - WorlandComment on above:Performed By: #### DIANEBC ####[facility] Lyx[address]wzvp[address] [place] [address]Jjuikehe mean volume Auto Entitic volume (Bld)10.8 fL Normal8.4-11.9W[facility] Center - WorlandComment on above:Performed By: #### DIANEBC ####[facility] Hbcr[address]jvy[address] [place] [address]Fpdrbdwwu Auto #/vol (Bld)262 10*3/xVUxwehx766-502OwtgsWashakie Medical Center - WorlandComment on above: Performed By: #### LCBC ####[facility] Tgwjdtahnl[address] [place] [address]XWZ Auto #/vol (Bld)3.76 10*6/uLNormal3.5-5.5SLafene Health Center Comment on above:Performed By: #### DIANEBC ####[facility] Nqu[address] [place] [address]THF Auto #/vol (Bld)8.6 10*3/uLNormal3.9-11.0W[facility] Center - WorlandComment on above:Performed By: #### DIANEBC ####[facility] B[address]co[address]ql[address] [place] [address] 39[address]TMBELVWSAY FILTRATION RATE ESTon 07-28-2017 GFR/1.73 sq M predicted among non-blacks MDRD vol rate/area (S/P/Bld)58 mL/min/{1.73_m2}Low> 60[facility] - WorlandCommclaren [place] on above:Order Comment: Is patient fasting? NOPerformed By: #### JACE BRAUN ####[facility] Rsbmfwdozs85621 [place], [place] [address]GQ AMER67 mL/MINNormal> 60[facility] - WorlandCommclaren [place] on above:Order Comment: Is patient fasting? NOResult Comment: Effective 08/24/14:CKD-EPI equation / based on IDMS traceable creatinine.Continue touse the CREAT CLR-DOSE (Cockgroft-Gault)value for determining medication dose.Performed By: #### JACE BRAUN ####[facility] P[address]wmprvl[address] [place] [address]KGUQPJLkb 96-58-3499EEU Coag RelTime (PPP)1.07 {INR}Normal0.9-1.1SLafene Health CenterCommclaren northern [place] on above: Order Comment: List patient's anticoagulant: NONE SPECIFIEDResult Comment: * NOTE: INR therapeutic range of 2.0 - 3.0 is recommended for prophylaxis to prevent embolism, venous thrombosis, pulmonary embolism, and myocardial infarction. INR therapeutic range of 2.5 - 3.5 is recommended for patients with mechanical heart valves. *Performed By: #### MELODY VILLAREAL ####[facility] Mdnvpslmxb[address] [place] [address]JW SEC11.8 secondsNormal 9.8-12.7W[facility] - WorlandCommclaren [place] on above:Order Comment: List patient's anticoagulant: NONE SPECIFIEDPerformed By: #### MELODY VILLAREAL ####[facility] Svyincaznj42392 [place], [place] [address]VSCqg 70-26-8424kDZO Coag time (Bld)34.1 rNmbmqu72.0-36.0[facility] - WorlandCommclaren [place] on above:Order Comment: List patient's anticoagulant: NONE SPECIFIEDResult Comment: The APTT is no longer used for monitoring unfractionatedheparin therapy. For monitoring heparin therapy, use theHeparin Assay.Performed By: #### MELODY VILLAREAL ####[facility] M[address]vbquabw[address] [place] [address] 25[address]LVIRIBDEKD COMPLETEon 42-81-5599QMKWRMINDESYUDMWhiayvQTRXOFyzub [facility] CenterComment on above: Performed By: #### NELSON ####[facility] [address] [place] [address] 15295OWMOFTUVUXzbogelpGtldstJAGBMRAAGvfwx [facility] CenterComment on above: Performed By: #### NELSON ####[address] [address]GGWOMHehtwxlaFqftbqEPHEKANFYriro [facility] Medical CenterComment on above: Performed By: #### NELSON ####[address] [address]Ayjrk Nom (U)YellowNormalYELLOWWashakie Medical Center - WorlandComment on above: Performed By: #### NELSON ####[address] [address]UZIXOCUUuabogrkFdfcgvRWUJQIJHOcgol [facility] CenterComment on above: Performed By: #### NELSON ####[address] [address]XZIMWQVlqzhujxOeaneeSUUNXWRJWsyxh [facility] CenterComment on above: Performed By: #### NELSON ####[address] [address]RBDV ESTERASENegativeNormalNEGATIVESLafene Health CenterCommclaren northern [place] on above:Performed By: #### NELSON ####[facility] Z[address]juc[address] [place] [address] 116[address]SUMJWFKVlkiapigXbkhqbZTOWQUZZDtggi [facility] Medical CenterComment on above: Performed By: #### NELSON ####[facility] M[address]kezckjet[address] [place] [address] 5[address]ID9.1Ymxbda4.0-9.0W[facility] Center - WorlandComment on above:Performed By: #### NELSON ####[address] [address]Xdiqvfr mass concNegativeNormalNEGATIVESLafene Health CenterComment on above: Performed By: #### NELSON ####[address] [address]VXNQ GRAV1.151Euegqt5.005-1.030W[facility] Center - WorlandComment on above: Performed By: #### NELSON ####[facility] Jtq[address]gfsjj[address]643 [place], [place] [address]EXMNNDOtcabdovZngrigDLHGUJUNVxmqk [facility] CenterComment on above: Performed By: #### NELSON ####[facility] Zbrpexamdn80537 [place], [place] [address]Gufgwkq 44-80-3778Imqqgy click on the link to view the study imagesNormal MP-Reproductive Endocrinology-Mary 206 Work Phone: Vital Signs Date TimeVital SignValuePerforming JrptzkdrdChghevjp05-14-6688 13:41-0400Body kurwoz349.48 cmBenjamin Ball DO Work Phone: [facility]09-17-2025 13:41-0400 Body mass index (BMI) [Ratio]43.9 kg/v7Hujpeugd Ball DO Work Phone: [phone]09-17-2025 13:41-0400 Body hkoypj037.03 kgBenjamin Ball DO Work Phone: [facility]09-17-2025 13:41-0400 Diastolic blood ilathnyw90 mm[Hg]Aquiles Ball DO Work Phone: [facility]09-17-2025 13:41-0400 Heart rate87 /minBenjamin Ball DO Work Phone: [phone]09-17-2025 13:41-0400 Respiratory rate12 /minBenjamin Ball DO Work Phone: [phone]09-17-2025 13:41-0400 Systolic blood nspswjam086 mm[Hg]Aquiles Ball DO Work Phone: [phone]12-06-2024 09:09-0500 Body mass index (BMI) [Ratio]43.68 kg/w4Ztfhooli Rinkes DO Work Phone: [facility]flki74[facility]-0776 09:09-0500Body ttsdqe227.59 kgKathleen Rinkes DO Work Phone: [facility] HospitalQmapgnckha08-14-4264 09:09-0500Diastolic blood mm[Hg]Tess Saxena DO Work Phone: [facility] HospitalUeszpyogrl20-80-6772 09:09-0500Systolic blood aprxrzkf949 mm[Hg]Tess Saxena DO Work Phone: [facility] HospitalYckvjsprnm97-16-2698 13:42-0400Body eclfux377.48 cmL[facility]09-11-2024 13:42-0400Body mass index (BMI) [Ratio]41.9 kg/z4UcakkffsoLima [facility] Hospital09-11-2024 13:42-0400Body .98 kgL[facility]09-11-2024 13:42-0400Diastolic blood isovgptd14 mm[Hg][facility]09-11-2024 13:42-0400 Heart rate79 /[facility]09-11-2024 13:42-0400 Respiratory rate12 /[facility]09-11-2024 13:42-0400 Systolic blood ueotyory019 mm[Hg][facility]06-24-2024 11:20-0400Body .5 cmTino Mulligan MD Work Phone: [facility]06-24-2024 11:20-0400 Body mass index (BMI) [Ratio]39.51 kg/s5WquxqmuTino Mulligan MD Work Phone: [facility]06-24-2024 11:20-0400 Body .98 kgTino Mulligan MD Work Phone: [facility]08-30-2023 14:30-0400 Body dwuzgi621.48 cmBelashaun Ball Other [employer] Other 08-30-2023 14:30-0400Body mass index (BMI) [Ratio] 40.05 kg/o7Xrbpmzhd Ball Other [employer] [place] [employer] Other 08-30-2023 14:30-0400Body .34 kgBenjamin Ball Other [employer] Other 08-30-2023 14:30-0400Diastolic blood ieginqdg50 mm[Hg] Aquiles Ball [facility] Other 08-30-2023 14:30-0400Respiratory rate12 /minBenjamin Ball Other [place] [employer] Other 08-30-2023 14:30-0400Systolic blood mwaauwti069 mm[Hg] Aquiles Ball Other [employer] Other 09-30-2022 08:44-0400Body .48 cmBenjamin E Ball Work Phone: mp662-2037FO-Uoqmxdhefs-[place] [address]99 DO Work Phone: [phone] 658-559609-30-2022 08:44-0400Body mass index (BMI) [Ratio] 42.07 kg/h5Ejweywqp E Ball Work Phone: mp648-8981DF-Xewzitbpki-[place] 2099 DO Work Phone: [phone] 611-267009-30-2022 08:44-0400Body surface area Derived from formula2.03 q3Alvnjcjl E Ball Work Phone: mp484-2514EZ-Aipotzubba-[place] 2099 DO Work Phone: 1(261) 850-916409-30-2022 08:44-0400Body rfxfzi761.32 kgBenjamin E Ball Work Phone: mp039-4124KV-Qqdatwpifw-[place] 2100 DO Work Phone: 1(119) 751-844909-06-2022 09:12-0400Body tyctnh003.48 cmBenjamin E Ball Work Phone: [phone]-PWTGS-[facility] [address] IVF Work Phone: [phone]) 640-845809-06-2022 09:12-0400Body mass index (BMI) [Ratio] 40.24 kg/b7Kwntsepe E Ball Work Phone: [phone]-VGQPR-[place] [address] IVF Work Phone: [phone] 09:12-0400Body surface area Derived from formula1.99 u6Vdklxqbf E Ball Work Phone: [phone]-MLESO-[place] [address] IVF Work Phone: [phone] 09:12-0400Body .79 kgBenjamin E Ball Work Phone: [phone]-VUOLR-[place] [address] IVF Work Phone: [phone] 11:12-0400Body kuyssy902.48 cmBenjamin E Ball Work Phone: [phone]-AWLHO-[place] [address] Work Phone: [phone] 11:12-0400Body mass index (BMI) [Ratio] 41.88 kg/i9Sqvwaktl E Ball Work Phone: ZE-ADCSU-[place] [address] Work Phone: [phone] 11:12-0400Body surface area Derived from formula2.02 m3Qmtfrycx E Ball Work Phone: [phone]-QKSRP-[place] [address] Work Phone: [phone] 11:12-0400Body zupywz490.87 kgBenjamin E Ball Work Phone: MO-BOMKK-[place] Work Phone: [phone] 11:12-0400Diastolic blood mm[Hg] Aquiles E Ball Work Phone: [phone]-RCJAI-[place] [address] Work Phone: 1(216)[phone] 11:12-0400Heart rate76 /minBenjamin E Ball Work Phone: [phone]-YXONC-[place] [address] Work Phone: [phone] 11:12-0400Systolic blood zpxkzyyt038 mm[Hg] Aquiles E Ball Work Phone: DI-XPQDP-[place] [address] Work Phone: 1(216)[phone] 11:12-14495 1Benjamin E Ball Work Phone: JT-PUEOQ-[place] [address] Work Phone: Comment on above:EzccAfnsz80-64-8679 11:12-27050 1 Aquiles E Ball Work Phone: LC-XTCCJ-[place] [address] Work Phone: Comment on above:GQMN63-98-1334 11:12-85880 1Benjamin E Ball Work Phone: YB-KCSNT-[place] [address] Work Phone: [phone] on above:HNZZ10-73-6701 13:09-0400Body height 157.48 cmBenjamin E Ball Work Phone: QC-FJJAF-MAC [facility] Work Phone: [phone] 13:09-0400Body mass index (BMI) [Ratio] 39.51 kg/j9Fvxskxed E Ball Work Phone: [phone]-UGQTD-MAC [facility] Work Phone: [phone] 13:09-0400Body surface area Derived from formula1.98 c4Pmquphfk E Ball Work Phone: [phone]-NZAAT-MAC [facility] [place] Work Phone: [phone] 13:09-0400Body atpmpd22.98 kgBenjamin E Ball Work Phone: [phone]-QFEEG-[facility] [place] Work Phone: [phone] 13:09-32831 1Benjamin E Ball Work Phone: [phone]-QBNMU-[facility] [address] [place] Work Phone: [phone] on above:PWPL72-28-7440 13:0911824 1Benjamin E Ball Work Phone: UW-RTKTV-[facility] [address] [place] Work Phone: [phone] on above:VUTP81-39-6070 13:0981962 1Benjamin E Ball Work Phone: JR-MHUDP-[facility] [address] [place] Work Phone: [phone] on above:XhhzTuwyt49-11-9452 15:29-0500Body mass index (BMI) [Ratio]39.51 kg/v1Jjvgejgp E Ball Work Phone: [phone]-Rzorkevuvi-[place] 2099 DO Work Phone: [phone]2-2264 15:29-0500Body surface area Derived from formula1.98 i2Kqgpprhp E Ball Work Phone: [phone]-Brskneecia-[place] 2099 DO Work Phone: [phone]4-47-1667 15:29-0500Body rfpham77.98 kgBenjamin E Ball Work Phone: [phone]-Qrknkioxof-[place] 2099 DO Work Phone: [phone])[phone]4-75-6675 15:29-0500Diastolic blood mm[Hg] Aquiles E Ball Work Phone: ET-Xctlekfzzq-[place] 2099 DO Work Phone: [phone]219 15:29-0500Heart rate76 /minBenjamin E Ball Work Phone: JW-Ckyiomnapj-[place] 2099 DO Work Phone: [phone]-2062 15:29-0834AlR8% (BldA) [Mass fraction]98 % Aquiles E Ball Work Phone: OR-Iqfmqangts-[place] 2099 DO Work Phone: [phone]3-6979 15:29-0500Systolic blood pdervhdq971 mm[Hg] Aquiles E Ball Work Phone: 1([phone]-[facility]thfsdrhpwAll[facility] 2100 DO Work Phone: 1(217) 358-407611-03-2021 10:14-0400Body vgzkry348.48 cmBenjamin E Ball Work Phone: 1(494) [phone]-Wyxbepuufqwtqc-[place] Work Phone: 1(909) 351-615611-03-2021 10:14-0400Body mass index (BMI) [Ratio] 38.41 kg/n1Iaiehbvh E Ball Work Phone: [phone]-Hycgaifkzwqbzp-[place] Work Phone: 1(797) 742-885911-03-2021 10:14-0400Body surface area Derived from formula1.95 i0Djvablme E Ball Work Phone: [phone]-Ioajxxrxdeoysf-[place] Work Phone: 1(500) 634-177511-03-2021 10:14-0400Body tyvqqr53.26 kgBenjamin E Ball Work Phone: 1(502) [phone]-RhadtthbnrzlciH[facility] Work Phone: 1(459) [phone] 12:56-0500BMI (Body Mass Index)49.04 kg/m2 Luana MartinezVvypkBM-UCRJ-EFMZ [place] [address] M Work Phone: 1(316) 813-750202-04-2021 12:56-0500Body Muahfunolaf45.4 [degF]Luana MartinezVadtpXX-HZFQ-SFYV [place] [address] M Work Phone: 1(595) [phone] 12:56-0500Body yubvki737.62 kgLuana Godinez WE-WAWI-RKKH [place] [address] M Work Phone: 1([phone]) [phone] 12:56-0500BP Zwvqezuuf81 mm[Hg]Luana Godinez QL-VFZJ-EZZZ [place] [address] M Work Phone: 1([phone] 12:56-0500BP Swmeooge290 mm[Hg]Luana Godinez RF-BHJO-KJIW [place] [address] M Work Phone: 1([phone] [phone] 12:56-0500BSA (Body Surface Area)2.17 m2 Luana StevensGvgscYN-EIVX-UUVW [place] [address] M Work Phone: 1(232) 111-5114039389-37-9031 12:56-4611Ijqcit581.48 cmBroeitan Stevensi OV-NFCR-YPWI [place] [address] M Work Phone: 1(798) 405-1467346728-92-3099 12:56-37642 1Brooke WjiwbPR-YLQA-DVGD [place] [address] M Work Phone: Comment on above:Lauxkdy32-69-3726 12:56-42045 1Brooke IuftfOC-SCCF-SOLB [place] [address] M Work Phone: Comment on above:Jddv94-16-1845 16:16-0500BMI (Body Mass Index)48.9 kg/n6VfvouvLuana StevensVtcrkXR-VILH-WIRI [place] [address] M Work Phone: 1(470) 988-227002-02-2021 16:16-0500Body Aatgrxjsmti50 [degF]Luana StevensRgetlDR-ZGDL-NWTT [place] [address] M Work Phone: 1([phone] 16:16-0500Body ttflge379.28 kgLuana Godinez OH-QMJD-JJMF [place] [address] M Work Phone: 1(837) 505-1995754756-31-4925 16:16-0500BSA (Body Surface Area)2.16 m2 Luana StevensYcowpTJ-ZEGQ-CPSW [place] [address] M Work Phone: 1(310) 654-5740062043-19-2626 16:16-1527Kimtgb273.48 cmBroeitan Stevensi JU-SSNO-UYGM [place] [address] M Work Phone: 1(575) 292-132702-02-2021 16:16-30624 1Brooke MudgdFN-ILJE-HBRN [place] [address] M Work Phone: Comment on above:Pain YhetgTrug61-79-5114 16:16-64097 1Brooke FbwwbOA-OLRN-PMRK [place] [address] M Work Phone: Comment on above:Uymkddl12-48-2756 15:57-0500BMI (Body Mass Index)48.52 kg/h3Ihfbcx WzvjcDW-COXI-TLHW [place] [address] M Work Phone: 1(780) 139-4787400782-10-8896 15:57-0500Body Jszzoyesxql37.2 [degF]Luana StevensJupbuYA-NBPS-MBNZ [place] [address] M Work Phone: 1(960) 884-947801-29-2021 15:57-0500Body hjaciv394.32 kgBroeitan Stevensi QV-YCWK-NOAZ [place] [address] M Work Phone: 1(456) 726-936001-29-2021 15:57-0500BP Fcridxora78 mm[Hg]Luana Stevensi BT-XHAD-QIXD [place] [address] M Work Phone: 1(146) 343-948101-29-2021 15:57-0500BP Jwuotukt250 mm[Hg]Luana Stevensi SH-WJFJ-CNFE [place] [address] M Work Phone: 1(846) 477-514301-29-2021 15:57-0500BSA (Body Surface Area)2.16 m2 Luana StevensWviooLX-TKPI-GZJD [place] [address] M Work Phone: 1(589) 448-246101-29-2021 15:57-3836Ylfxse972.48 cmBrooke Godinez BY-NQVG-XXMG [place] [address] M Work Phone: 1(596) 296-932101-29-2021 15:57-67435 1Brooke NrzgeIS-ENIH-DHPL [place] [address] M Work Phone: Comment on above:ParaPain Phywl13-03-2300 15:57-89976 1Brooke AdjaqYH-YTTM-EAWN [place] [address] M Work Phone: Comment on above:Cfwdgip57-74-0555 17:45-0500BMI (Body Mass Index)48.49 kg/n1Issdrw EddnqWJ-LAGG-DFXR [place] [address] M Work Phone: 1(204) 910-895501-27-2021 17:45-0500Body Qmcojryvskw59.4 [degF]Luana StevensVqowwRN-AHCV-MWCG [place] [address] M Work Phone: 1(562) 565-107701-27-2021 17:45-0500Body czplmu430.26 kgBroeitan Stevensi XE-ZZGO-GLSW [place] [address] M Work Phone: 1(812) 482-674501-27-2021 17:45-0500BP Icxlqgxvz00 mm[Hg]Luana Stevensi TC-OUQF-ZSYV [place] [address] M Work Phone: 1(898) 417-398301-27-2021 17:45-0500BP Yeyslztn156 mm[Hg]Luana Stevensi AR-RHRC-UPQH [place] [address] M Work Phone: 1(285) 887-232601-27-2021 17:45-0500BSA (Body Surface Area)2.15 m2 Luana StevensFthzyZD-MUXG-AEGT [place] [address] M Work Phone: 1(492) 799-852401-27-2021 17:45-3485Dsfowq921.48 cmBroeitan Stevensi GJ-FNKL-BGSL [place] [address] M Work Phone: 1(897) 870-257801-27-2021 17:45-57160 1Brooke DohseEH-EOKN-EPIE [place] [address] M Work Phone: Comment on above:Pain AfqvyMkhz66-21-0027 17:45-70318 1Brooke PthyzLR-ZOEJ-GWRF [place] [address] M Work Phone: Comment on above:Sdzjyij42-47-2575 17:14-0500BMI (Body Mass Index)46.53 kg/e3Skypcj DqxeuNM-KRYD-MURR [place] [address] M Work Phone: 1(981) 124-544501-20-2021 17:14-0500Body Sdxcakqizwy21.3 [degF]Luana StevensUrbsgJM-PRMN-GKGV [place] [address] M Work Phone: 1(153) 772-323101-20-2021 17:14-0500Body .38 kgBroeitan Godinez UC-FPVN-QVHS [place] [address] M Work Phone: 1(956) 276-518601-20-2021 17:14-0500BP Fpdukwoms21 mm[Hg]Luana Godinez UV-FLOQ-BCUB [place] [address] M Work Phone: 1(966) 913-224201-20-2021 17:14-0500BP Wygvconc342 mm[Hg]Luana Godinez OP-LJQV-NPJG [place] [address] M Work Phone: 1(352) 829-908501-20-2021 17:14-0500BSA (Body Surface Area)2.12 m2 Luana MartinezFgwooEC-ZDZI-MZLA [place] [address] M Work Phone: 1(714) 583-353901-20-2021 17:14-5470Wrinoy409.48 cmBroeitan Godinez PY-FGHM-YRZD [place] [address] M Work Phone: 1(257) 382-730001-20-2021 17:14-82572 1Broeitan StevensRwhziDH-GCCI-XTHF [place] [address] M Work Phone: Comment on above:Vnfyuhj15-00-9470 17:14-45872 1Brooke GlvttTD-IZIO-OEJP [place] [address] M Work Phone: Comment on above:ParaPain Qyuon12-11-8035 17:39-0500 BMI (Body Mass Index)46.71 kg/o5JiohohLuana StevensPxoehDZ-XNPZ-GWOH [place] [address] M Work Phone: 1(413) 412-854401-12-2021 17:39-0500Body Azmydtjrpef15 [degF]Luana StevensRrvxrQV-FOYW-CVEY [place] [address] M Work Phone: 1(224) 990-587001-12-2021 17:39-0500Body nxvhxo757.84 kgBroeitan Godinez VJ-KBYY-OLDV [place] [address] M Work Phone: 1(375) 674-6522271913-53-0373 17:39-0500BP Fjqhmvkem38 mm[Hg]Lunaa Stevensi SC-YOYN-MVMM [place] [address] M Work Phone: 1(892) 666-294501-12-2021 17:39-0500BP Jzvzcbcm161 mm[Hg]Luana Godinez BU-TJIW-ZNKW [place] [address] M Work Phone: 1(211) 624-121901-12-2021 17:39-0500BSA (Body Surface Area)2.12 m2 Luana MartinezJuihiSV-SMWS-TQQO [place] [address] M Work Phone: 1(970) 889-707001-12-2021 17:39-4196Kpwdqc978.48 cmBroeitan oGdinez CX-DYPC-PZLN [place] [address] M Work Phone: 1(313) 553-2181529850-95-8152 17:39-31302 1Brooke FvfegWU-YXUX-CAAN [place] [address] M Work Phone: Comment on above:Blvcxoj49-33-0388 17:39-88522 1Brooke BfwggAE-NJCQ-CYXN [place] [address] M Work Phone: Comment on above:ParaPain Kmqqb68-35-7560 18:06-0500 BMI (Body Mass Index)45.36 kg/c4Trdwvseitan MartinezZkuyzPV-NATF-ISJM [place] [address] M Work Phone: 1(320) 753-712601-05-2021 18:06-0500Body Tkdfsrrzkpd43.3 [degF]Luana StevensZmcsxEZ-SZOZ-BUMI [place] [address] M Work Phone: 1(532) 566-388501-05-2021 18:06-0500Body wacwnd609.49 kgBroeitan Stevensi CW-WRIC-VMJQ [place] [address] M Work Phone: 1(145) 844-566901-05-2021 18:06-0500BP Vrdwtkhys09 mm[Hg]Luana Godinez ND-IZTE-FJIM [place] [address] M Work Phone: 1(778) 712-2202143473-27-1192 18:06-0500BP Ufpltdna787 mm[Hg]Luana Godinez LQ-IJCT-GVGZ [place] [address] M Work Phone: 1(726) 491-669201-05-2021 18:06-0500BSA (Body Surface Area)2.09 m2 Luana StevensFvkagTT-RIUY-WESH [place] [address] M Work Phone: 1(868) 521-7136478393-43-9902 18:06-3844Ybgask208.48 cmBroeitan Stevensi VQ-QKBK-URPC [place] [address] M Work Phone: 1(925) 237-1314716173-18-3628 18:06-88489 1Broeitan LcyyxBT-DJWE-BLLU [place] [address] M Work Phone: Comment on above:Zxytckk80-42-5223 18:06-02429 1Bji StevensAmaagNR-NRFQ-QINJ [place] [address] M Work Phone: Comment on above:Uynm55-97-5486 16:34-0500BMI (Body Mass Index)44.45 kg/s2Hhrjuy BbgveID-IHYN-LLOD [place] [address] M Work Phone: 1(375) [phone] 16:34-0500Body Qemgfmdnqox38.6 [degF]Luana StevensXfkokUQ-SISI-IRNM [place] [address] M Work Phone: Comment on above:Method: Ducvfrfb87-85-4904 16:34-0500 Body usrikq642.22 kgBroeitan OypkbWS-RQGI-ZFJN [place] [address] M Work Phone: 1(937) 665-7901732452-23-2021 16:34-0500BP Mrlvmhqtj07 mm[Hg]Luana Godinez HU-WCAK-VTDL [place] [address] M Work Phone: Comment on above:Location: RUE; Position: Sitting 03-28-2020 16:34-0500BP Zfrfehhy205 mm[Hg]Luana StevensCsapaIR-ZHSV-RHXF [place] [address] M Work Phone: Comment on above:Location: RUE; Position: Sitting 03-28-2020 16:34-0500BSA (Body Surface Area)2.08 b1Rpaomm QiufnUK-OTXK-TGZU [place] [address] M Work Phone: 1(198) 622-8456606709-30-3385 16:34-6018Huluwp724.48 cmBrooke Godinez CB-JDNN-VUXT [place] [address] M Work Phone: 1(120) 384-3888646152-56-2090 16:34-68495 1Brooke EivraKM-GMIZ-SBGO [place] [address] M Work Phone: Comment on above:Skspzcn15-00-5489 16:34-49232 1Brooke DmtxjTV-ZPNZ-LOAG [place] [address] M Work Phone: Comment on above:Pain WigueFflo80-11-8657 15:13-0500 BMI (Body Mass Index)44.26 kg/n8Aigwob PulwoRK-CJVIU-Ftkxus 310 IVF Work Phone: 1)[phone]-04-1663 15:13-0500Body Pjbokulhtwe63.6 [degF]Luana XlifmRA-QDGXW-Bgtdyi 310 IVF Work Phone: [phone])[phone]1-0127 15:13-0500Body duweic990.77 kgBrooke Godinez XL-TXPTZ-Dkpenn 310 IVF Work Phone: [phone] 15:13-0500BP Lpfehjdoe43 mm[Hg]Luana Godinez PU-ZLMDM-Kftxdd 310 IVF Work Phone: [phone])[phone] 15:13-0500BP Xuowzble328 mm[Hg]Luana Godinez DB-ULAAN-Xiqncj 310 IVF Work Phone: [phone] 15:13-0500BSA (Body Surface Area)2.07 m2 Luana LsdosEV-DVKGQ-Sntukv 310 IVF Work Phone: [phone] 15:13-9198Awieqz923.48 cmBroeitan Godinez WE-KHMZI-Hukozg 310 IVF Work Phone: [phone] 15:13-76988 1Brooke QfhubKL-RDZOX-Xywszm 310 IVF Work Phone: [phone] on above:Pain SbhkxQetz93-07-8758 15:13-25604 1Brooke GyuuaKA-WLPDT-Gzkmpc 310 IVF Work Phone: [phone] on above:Mxoxjmi14-69-0762 18:36-0500BMI (Body Mass Index)43.81 kg/m5Qyaibk JpmywOE-JRHWK-Qthrwn 310 IVF Work Phone: 1()[phone] 18:36-0500Body Qyetrrkfrih24.3 [degF]Luana TragoMY-SSLAD-Stjphc 310 IVF Work Phone: 1()587-285283-96 18:36-0500Body ehclgq885.64 kgBroeitan Godinez CX-PAWZV-Geeful 310 IVF Work Phone: 1(216)117-772340-15 18:36-0500BP Nhghqtdmw36 mm[Hg]Luana Godinez FL-ZDJQD-Xnaptr 310 IVF Work Phone: 1(216)845-987439-33656828-25-6899 18:36-0500BP Ppmbmkrh538 mm[Hg]Luana Godinez GT-UWPXD-Lskoqe 310 IVF Work Phone: 1(216)504-672908-87 18:36-0500BSA (Body Surface Area)2.06 m2 Luana YbgofOR-VPEDH-Jukxcf 310 IVF Work Phone: 1(216)146-188237-02 18:36-4598Uvxhwd742.48 cmBroeitan Godinez OA-XSPPP-Uofdzz 310 IVF Work Phone: 1(216)985-241062-83 18:36-11429 1Brooke SaehqLT-ECDWG-Crvbfm 310 IVF Work Phone: [phone] on above:Pain KuaqeUtdr09-42-2352 18:36-38937 1Brooke OahokXF-MQCZM-Ifinkf 310 IVF Work Phone: [phone] on above:Pkeywhl79-19-2658 17:22-0500BMI (Body Mass Index)39.51 kg/v2Jvzawi QbluxNA-NPVMP-Aksnmx 310 IVF Work Phone: 1(216)193-670089-81691734-13-5713 17:22-0500Body Rflmcvsaxoc38.5 [degF]Luana OfhfdKO-QRBAX-Kyoxdh 310 IVF Work Phone: 1(216)472-393671-13200556-73-0850 17:22-0500Body .98 kgBrooke Godinez OW-OTYPH-Qtwvwg 310 IVF Work Phone: 1(216)078-999087-67055349-23-1270 17:22-0500BP Mwphmxuam42 mm[Hg]Luana Godinez SZ-OROFT-Tzedzc 310 IVF Work Phone: 1(216)426-019372-40461497-33-9445 17:22-0500BP Vogzqrsf327 mm[Hg]Luana Godinez QJ-VCTWN-Tmxpiv 310 IVF Work Phone: 1(216)940-327091-99907215-89-9992 17:22-0500BSA (Body Surface Area)1.98 m2 Luana QcaoaLQ-SRHUP-Dgrjnt 310 IVF Work Phone: 1(216)177-135463-06535837-80-2743 17:22-2634Ikvcbk423.48 cmBrooke Godinez NR-TLUWH-Wufqyt 310 IVF Work Phone: [phone] 17:22-0500Pulse (Heart Rate)85 /minBrooke NelaeKS-SUPWU-Byueks 310 IVF Work Phone: 1(216)218-324392-75275630-47-5123 17:22-94743 1Brooke FegiiUJ-RBRQL-Cpbtss 310 IVF Work Phone: [phone] on above:Yjyhump17-81-4116 17:22-63283 1Brooke DgtglTB-DMNVA-Tsyaet 310 IVF Work Phone: [phone] on above:ParaPain Scale Encounters Encounter DateEncounter TypeCare ProviderFacilityStart: 01-28-2025 End: 47-14-6482oceufiaupoTROGXNortheast [facility] AmbulatoryStart: 12-24-2024 End: 23-22-2544jpoaeqixbzCCOFLNortheast [facility] AmbulatoryStart: 12-15-2024 End: 04-98-1770pdzazcjhorQfunyxgh Ball DO Work Phone: [facility] Work Phone: Start: 12-15-2024 End: 97-92-5236Jinkkys encounter procedureOnealdevdianne Escobedo DO-[facility] Work Phone: Start: 12-15-2024 End: 03-74-8287Ndbccak encounter statusdevdianne [facility]: 70-01-9976Lok-patient / Non-visitAngel Smith DO-[facility] Work Phone: Start: 11-05-2024 End: 27-79-2249zddgxjfshqVSYQYNortheast [facility] AmbulatoryStart: 09-13-2024 End: 84-58-8084vyvdasgxodQHNNWNortheast [facility] AmbulatoryStart: 08-09-2024 End: 58-12-8031eerkwpwigeWNVDINortheast [facility] AmbulatoryStart: 07-12-2024 End: 91-27-1759nzeebseihdMQWFWNortheast [facility] AmbulatoryStart: 06-14-2024 End: 61-19-0025hkbajiyiybNDEHXNortheast [facility] Medical Center [facility] AmbulatoryStart: 04-16-2024 End: 33-36-5175znreqamlufEWYMNNortheast [facility] AmbulatoryStart: 03-05-2024 End: 51-02-2333Yblfdw flowsheetKathleen E Rinkes DO Work Phone: [facility] OBStart: 03-05-2024 End: 37-63-2739Boclkf flowsheetKathleen E Rinkes DO Work Phone: [facility] OBStart: 03-05-2024 End: 73-65-2452phekbcbnliFAPYFEaton Rapids Medical Center AmbulatoryStart: 03-05-2024 End: 43-84-0974Siltisl encounter statusKathldina Saxena DO Work Phone: noNC HealthcareStart: 03-05-2024 End: 45-94-2177Ktgvmqxv preventive med est patient 40-64yrsKathjake Saxena DO Work Phone: [facility] OBComment on above:Encounter for gynecological examination without abnormal finding; Screening for malignant neoplasm of cervix; Encounter for screening mammogram for breast cancerStart: 12-10-2023 End: 81-86-8667bjbewbrrxvPowaxectfKettering Health [facility] Work Phone: Start: 12-10-2023 End: 09-51-6587Nysipcluf for general adult medical examination without abnormal findingsMarymount Hospitaltart: 12-10-2023 End: 91-66-4262Mcprlgq encounter procedureTransylvania [facility] Work Phone: Start: 36-21-8252Dzwspya encounter statusMarymount Hospitaltart: 54-42-0325Pfe-patient / Non-visitTransylvania Regional Hospital [facility] Work Phone: Start: 11-17-2023 End: 16-76-0427tcjcehknqwQTMOI L [facility]art: 10-06-2023 End: 25-19-1306uwhqqiklajNAQOP L KELLakeHealth Beachwood Medical Centertart: 09-22-2023 End: 54-58-7124ryqxjbxgmtNNVKMHF L GORDONCleveland Clinic Medina Hospitaltart: 09-22-2023 End: 36-66-9700Cwrzqa outpatient new 45 minutesTino Mulilgan MD Work Phone: [facility] CenterComment on above: Chronic low back pain without sciatica, unspecified back pain laterality (Primary Dx)Start: 09-08-2023 End: 63-40-1667wzijxeurzcLDMQE L [facility] Healthtart: 09-08-2023 End: 25-02-6806rkgpkeyaupApmoaiz Vytautas Giedraitis MDFacility:PM [place] Start: 08-18-2023 End: 86-67-5108ehorjaxkfqJrlfvnm Vytautas Giedraitis MDFacility:PM [facility] Start: 08-11-2023 End: 99-52-7783pwdxphqsoeSTCFC [facility] Hospitaltart: 08-04-2023 End: 57-28-1437auxlggsuozGxumqlc Vytautas Giedraitis MDFacility:[facility] Start: 07-14-2023 End: 49-16-7443kpitqpzvviTOJTAMcKitrick Hospitaltart: 06-23-2023 End: 43-81-4495cpbqptdpzaBMQKTMcKitrick Hospitaltart: 04-28-2023 End: 75-96-1927izsaepkekdHpumbkeh Ball Other [employer] Other Start: 17-61-8397Kykkupvle encounterBenjamin BallFPG [facility] Medical ClinicStart: 47-38-7066xwwiynjdjaSzSandra Perezcility:[facility] Mary Dubosetart: 11-27-2022 End: 61-89-9666oeyejeguhmIddjhczc Ball Other [employer] Other Start: 20-91-1306Ksoajhvrn for general adult medical examination without abnormal findingsBenjamin BallFPG [facility] ClinicStart: 81-68-7147Ytdtxxxf preventive med est patient 40-64yrsBenjamin BallFPG [facility] ClinicStart: 22-02-3647ozxftoegeqFd. Erika L KelleyFacility:[id number]: 05-48-4661xhbupjnpaqFm. Erika L KelleyFacility:[id number]: 73-86-6774vrjzcskuhe Dr. Kelsey Perezcility:[address]Wwveg: 08-23-2022 End: 89-06-7503xbauvpenaiFmywwcxt BallFacility:[facility] Start: 08-19-2022 End: 37-40-8568Rdqsouebap and management of inpatientBelashaun Escobedo Facility:[facility] Hospitaltart: 66-47-1387lqlcihiwprYlSandra GrayFacility:[facility] Ohiotart: 07-26-2022 End: 55-11-8652fbupipqwmoSRZHKGTKF NO FAMILYFacility:[facility] Hospitaltart: 07-26-2022 End: 28-08-0529nlrljptbuhRL Tess Saxena Work Phone: [facility] Work Phone: Start: 07-26-2022 End: 31-91-0989Rszfngkg ReferredDO Tess Saxena Work Phone: [facility]-Lab [place] Work Phone: Start: 07-03-2022 End: 39-97-8635fbanrpiftnINWTETRE RINKESFacility:S6Jnbzt: 90-98-9557vxzdfzljlf Dr. Kelsey GrayFacility:[address]Cfuds: 06-05-2022 End: 17-94-6135usgxpbewzdPV AQUILES ESCOBEDOFacility:Q5Cnomm: 45-38-9552xsjlxjhnci Dr. Kelsey GrayFacility:[facility] EugeniaWinslow Indian Health Care Centertart: 60-59-2148ianiaiisbgClSandra GrayFacility:82[address]Rklte: 04-10-2022 End: 94-51-8051fealejnrugXT AQUILES ESCOBEDOFacility:R8Fhaim: 75-72-0521oohdlhdtrk Dr. Kelsey GrayFacility:[address]Vxmik: 02-04-2022 End: 85-24-8061wfhkjxietiDEWAQVZG RINKESFacility:N7Msujp: 89-75-7093Bv Renewal Aquiles Escobedo Work Phone: [phone]-TCFYP-[place] 206A IVF Work Phone: Start: 28-02-2135xowcckgmixBw. Erika L Kelley Facility:[id number]: 31-56-1562Mz RenewalBenjamin E Ball Work Phone: [phone]-FGIQF-[place] 310 IVF Work Phone: Start: 81-10-5778Vuvitfd encounter procedureBenjamin E Ball Work Phone: [phone]-BTRCD-[place]isman 310 IVF Work Phone: Start: 54-76-1251NYWKRIWXSL, Provider: OBGYN IVF [facility]06 1,MG OBGYN, Status: Pen, Time: 3:00 PMBenjamin E Ball Work Phone: [phone]-WAAQD-[place] 310 IVF Work Phone: Start: 34-58-0827CDLUSIfidiciv E Ball Work Phone: [phone]-KRPYV-[place] 310 IVF Work Phone: [phone]: 99-27-1642MOBJYQeqzckoe E Ball Work Phone: [phone]-ZQIFD-[place] 310 IVF Work Phone: [phone]: 80-95-1815Xueesj outpatient visit 25 minutes Aquiles E Ball Work Phone: [phone]-Uivdyqpdam-[place] 2100 DO Work Phone: Start: 66-05-8100Afipd UpdateBenjamin E Ball Work Phone: [phone]-SICOE-[place] 310 IVF Work Phone: Start: 70-82-2251Xsoqtob encounter procedureBenjamin E Ball Work Phone: [phone]-CWDKT-Bernard 206A IVF Work Phone: Start: 57-00-9479Blyyekp encounter procedureBenjamin E Ball Work Phone: [phone]-UEPPG-[place] 310 IVF Work Phone: Start: 49-64-5082Jfjgvmt encounter procedureBenjamin E Ball Work Phone: MU-WAMNH-[place] 310 IVF Work Phone: [phone]: 79-51-0645USEONIgdepjei E Ball Work Phone: VC-FXUAX-[place] 310 IVF Work Phone: [phone]: 91-86-5587Tjefukpsb for general adult medical examination without abnormal findingsDR AQUILES [facility] HospitalStart: 11-15-2021 End: 18-37-5459wcsiaucphcHS AQUILES BALLFacility:T5Crmvx: 11-15-2021 End: 33-55-7960Jfmubqdxn for general adult medical examination without abnormal findingsDR AQUILES ESCOBEDOFacility:W0Thkak: 36-18-0736Yw RenewalBenjamin E Ball Work Phone: FX-YWDNU-[place] 310 IVF Work Phone: [phone]: 52-59-6938Lftsx UpdateBenjamin E Ball Work Phone: ER-ZMWIN-[place] 310 IVF Work Phone: [phone]: 09-62-5202Jtyouay encounter procedureBenjamin E Ball Work Phone: IZ-TCXMI-[place] 310 IVF Work Phone: [phone]: 79-56-0093Yepijpx encounter procedureBenjamin E Ball Work Phone: EG-EGHOC-[place] 320 Work Phone: [phone]: 17-44-7574Gmijq UpdateBenjamin E Ball Work Phone: DL-AOVYU-[place] 310 IVF Work Phone: [phone]: 23-83-2123Jowfo UpdateBenjamin E Ball Work Phone: US-QGWZY-[place] 206A IVF Work Phone: Start: 45-12-1646Wnkswou encounter procedureBenjamin E Ball Work Phone: [phone]-WBIAM-[place] 310 IVF Work Phone: Start: 31-28-2019WPAKIGtxykpsc E Ball Work Phone: [phone]-Lfcqryqrmclq Endocrinology-[place] 206 Work Phone: Start: 95-48-9752Ldegtho encounter procedureBenjamin E Ball Work Phone: [phone]-HOZJK-Bernard 206A IVF Work Phone: Start: 38-22-4932Wspuq UpdateBenjamin E Ball Work Phone: XI-GBTHB-[place] 310 IVF Work Phone: Start: 43-70-3905FUWVIBaizwdbg E Ball Work Phone: GZ-OARZA-[place] 206A IVF Work Phone: Start: 40-15-9626Ikvrn EncounterBenjamin E Ball Work Phone: zz DO NOT USE - Softlab OnlyStart: 60-96-3438SVLOQ Aquiles E Ball Work Phone: [phone]-Vyclklizdl-[place] Work Phone: Start: 67-66-1616Dkaobt outpatient visit 25 minutes Aquiles E Ball Work Phone: [phone]-MQQMG-[place]ard 206A IVF Work Phone: Start: 81-15-5346SUGMGZYYGH, Provider: Zari Oviedo, Status: Pen, Time: 1:30 PMBenjamin E Ball Work Phone: [phone]-Faltmncksv-[place] Work Phone: Start: 87-67-4594Xxgml UpdateBenjamin E Ball Work Phone: [phone]-Goozhpdwkv-[place] Work Phone: Start: 25-60-4516Vpzjn UpdateBenjamin E Ball Work Phone: OU-Fdnewclewi-[place] 2100 DO Work Phone: [phone]: 99-56-1859Rfrbp UpdateBenjamin E Ball Work Phone: BD-Lwysczibld-[place] 2100 DO Work Phone: [phone]: 75-83-6943Ahtlx UpdateBenjamin E Ball Work Phone: DR-Wxpfweyofn-[place] 2100 DO Work Phone: [phone]: 79-32-5226Nkbmvb consultation new/estab patient 60 minBenjamin E Ball Work Phone: FA-Qqtpxwkugx-[place] 2100 DO Work Phone: [phone]: 47-47-8777Kqlmaoh encounter procedureBenjamin E Ball Work Phone: AM-Jqnwohpnof-[place] 2100 DO Work Phone: [phone]: 10-42-6392UJJMVGaxptnri E Ball Work Phone: NW-QolosrrtxxmdgoMusc [facility] Work Phone: [phone]: 26-37-1596Fxena UpdateBenjamin E Ball Work Phone: GX-IyujvvnkkikmmfMusc Health [facility] Work Phone: [phone]: 08-04-3363Xzvzhrk encounter procedureBenjamin E Ball Work Phone: YS-GspiongpwqhvyoMusc Health [facility] Work Phone: [phone]: 03-38-0123Evqubny encounter procedureBrooke VnmxiVA-MUJR-RRRB [place] [address] M Work Phone: Start: 94-59-3338Xrbmsef encounter procedureBrooke RvlqrYG-UTHX-PNJZ [place] [address] M Work Phone: Start: 82-46-5246Xqbalpp encounter procedureBrooke DtrddGB-HCYV-OQFS [place] [address] M Work Phone: Start: 94-25-9806Uquvtgk encounter procedureBrooke EtvtyHV-SRDT-RNMZ [place] [address] M Work Phone: Start: 53-24-3215Nvvsqod encounter procedureBrooke IsqzbAI-ZEPS-EGMB [place] [address] M Work Phone: Start: 00-28-4750Gcazrnb encounter procedureBrooke KkcavYM-VVUC-XNFW [place] [address] M Work Phone: Start: 73-46-3292Vjxqewr encounter procedureBrooke KypbtMN-RSOJ-UUGK [place] [address] M Work Phone: Start: 81-92-4369Cnqmvyo encounter procedureBrooke SdxyvMJ-QKSU-KZTG [place] [address] M Work Phone: Start: 98-69-0930Cncxtrv encounter procedureBrooke GdlapNW-GNLFS-Hoxffa 310 IVF Work Phone: Start: 21-67-3698Tjkoxbr encounter procedureBrooke BluktJY-LZYWS-Ghpplm 310 IVF Work Phone: Start: 37-92-6866Lrnlzdw encounter procedureBrooke UlpkgNS-SZTQU-Hppuvb 310 IVF Work Phone: Start: 00-18-6514Zpcrvok encounter procedureBrooke DurxiUA-ZNULI-Pqbdrr 310 IVF Work Phone: Start: 84-43-5975Clvxojh encounter procedureBrooke XwdcvWC-UAMZX-Iirdus 310 IVF Work Phone: Start: 56-99-0171Iywyalx encounter procedureBrooke DkmqoNJ-DMFJI-Rsukgb 310 IVF Work Phone: Start: 70-72-3447Rkklfrt encounter procedureBrooke NqwunYG-JLGUW-Oezgiz 310 IVF Work Phone: Start: 25-00-8617Dlrbrxh encounter procedureBrooke KnjfuAK-KQFNA-Kvdosz 310 IVF Work Phone: Start: 99-19-6566Afpzwod encounter procedureBrooke JnlpuRT-NVWOP-Yfyzje 310 IVF Work Phone: [phone]: 27-81-1509Udrqjtg encounter procedureBrooke QoaesEE-GQKHL-Bqwjcf 310 IVF Work Phone: [phone]: 63-88-7339Wtsgiag encounter procedureBrooke AztzsIX-VOABC-Hfphzh 310 IVF Work Phone: [phone]: 19-95-4904Ihufvom encounter procedureBrooke MdedkCN-ZZLQT-Sowcaq 310 IVF Work Phone: [phone]: 81-01-0312Wleqiiz encounter procedureBrooke WzoptPE-DQWZJ-Gfagmz 310 IVF Work Phone: [phone]: 15-29-4549Kjfgeuq encounter procedureBrooke WlppmHA-QSMOJ-Auvatv 310 IVF Work Phone: [phone]: 98-44-5035Pmggrgs encounter procedureBrooke SyuxfXR-TFLCH-Iojoap 310 IVF Work Phone: [phone]: 62-67-6351Ksmkhjq encounter procedureBrooke JyspqZO-VNOYQ-Lvjlhi 310 IVF Work Phone: [phone]: 42-53-7205Rekkkpk encounter procedureBrooke LlvezLR-AITYC-Lpoqnh 310 IVF Work Phone: [phone]: 23-74-3630Qvrotwh encounter procedureBrooke TteagRM-BPZZC-Jnqnae 310 IVF Work Phone: [phone]: 47-41-4806Sqrpnjt encounter procedureBrooke IaplnGN-LYOTO-Suhodb 310 IVF Work Phone: [phone]: 36-38-6558Gvuuskt encounter procedureBrooke ObybtUW-OBMBO-Dnbjhx 310 IVF Work Phone: [phone]: 97-71-8898Tzskyhs encounter procedureBrooke RzmtaEQ-WCHOP-Uomyqu 310 IVF Work Phone: [phone]: 35-80-5356Inreqkw encounter procedureBrooke XgubrYL-LVNZD-Grozzt 310 IVF Work Phone: Start: 15-89-4670Fnzdfmd encounter procedureBrooke RodneyiMP-Reproductive Endocrinology-[place] Work Phone: Start: 73-91-7870Rbyfasn encounter procedureBrooke PyeisKA-GFXBE-Rgpqts 310 IVF Work Phone: Start: 15-83-4566Gahebzi encounter procedureBrooke QjcdyCU-XPSWI-Cutwdx 310 IVF Work Phone: Start: 13-34-5455Kipkxjh encounter procedureBrooke ZrrybON-CDOVX-Ppewpc 310 IVF Work Phone: Start: 06-32-8082Vfgqvpp encounter procedureBrooke MvxfqZS-FEXGU-Swqrxs 310 IVF Work Phone: Start: 30-83-1764Tvfqcko encounter procedureBrooke YjuxuMJ-GKXFF-Fzvinc 310 IVF Work Phone: Start: 02-30-8640Hnjtyzv encounter procedureBrooke VkasaOD-ZEOPT-Hepucv 310 IVF Work Phone: Start: 23-34-4138Vpbhfnu encounter procedureBrooke TlrwrVM-RIKIZ-Cmeyzl 310 IVF Work Phone: Start: 28-50-9524Aciknzn encounter procedureBrooke MscddQE-HCMWA-Wvcibt 310 IVF Work Phone: Start: 45-25-3451Umkmzkl encounter procedureBrooke HnlddZP-HUHLT-Ufljbq 310 IVF Work Phone: Start: 45-85-6418Vyadziq encounter procedureBrooke QludbKJ-WXBJY-Wngkij 310 IVF Work Phone: Start: 09-54-1165Ddwgezq encounter procedureBrooke AfpstDT-ZJNSW-Dukzoh 310 IVF Work Phone: Start: 16-72-2533Rxruykt encounter procedureBrooke RhpreLR-OUSNJ-Xgzbxx 310 IVF Work Phone: Start: 29-41-3441Lpuercv encounter procedureBrooke YljebCX-UKZKW-Wdluyk 310 IVF Work Phone: Start: 62-87-3218Upiwqnj encounter procedureBrooke RtmgdBS-QSCEZ-Wpxlcg 310 IVF Work Phone: Start: 07-85-7677Ualuplc encounter procedureBrooke AvztuGA-LLKUD-Ujwdrz 310 IVF Work Phone: Start: 19-16-0448Pddmhbd encounter procedureBrooke DurpzJV-UGBHQ-Mtxsqz 310 IVF Work Phone: Start: 64-57-7555Zmzkfmc encounter procedureBrooke NuawkTP-UYLBR-Lpqldi 310 IVF Work Phone: Start: 29-32-3409Svxvcww encounter procedureBrooke vb-QjzqsNB-Jkfktgbclrkh Endocrinology-[place] 206 Work Phone: Start: 71-30-3217Kghjnyc encounter procedureBrooke gh-PopnkCB-Wrdilmxsvzdg Endocrinology-[place] 206 Work Phone: Start: 79-93-6695Hhpzwdg encounter procedureBrooke bw-VxunhFL-Ughyeyartbbv Endocrinology-[place] 206 Work Phone: Start: 40-32-3964Mtjtqgp encounter procedureBrooke ks-HvzpdCT-Yviqmhxtrigf Endocrinology-[place] 206 Work Phone: Start: 27-02-8557Htxlfnv encounter procedure Og CullenFacility:[facility]: 85-23-8954Aziylff encounter procedureBrooke ku-IbsdrRN-Domknsvonzzt Endocrinology-[place] 206 Work Phone: Start: 78-02-7469Txrudux encounter procedureBrooke ge-DofyySW-Cxhivmmchlbb Endocrinology-[place] 206 Work Phone: Start: 31-07-6003Bcqpozt encounter procedureBrooke xs-NsczrVL-Jxvcneauhvph Endocrinology-[place] 206 Work Phone: Start: 04-23-6228Nbjtpmf encounter procedureBrooke nw-CcrtmSC-Zjjcbjknunxz Endocrinology-[place] [address] Work Phone: Start: 83-82-6348Utfrrdf encounter procedureBrooke nv-XdyfcKC-Emglvapemfjn Endocrinology-[place] 206 Work Phone: Start: 81-51-3192Fllndqu encounter procedureBrooke uv-IgzxjLW-Qusfdvcqzaye [facility]inology-[place] [address] Work Phone: Start: 85-29-0579Ccjtlxw encounter procedure Gamaler S ReeseFacility:[facility]art: 90-76-9549Svccwhy encounter procedureChristopher S ReeseFacility:[facility] [place]: 07-24-3211Sqgrcez encounter procedureChristopher S ReeseFacility:[facility] [place]: 49-82-4227Fayrvhv encounter procedureBrooke jayla-RossiMP- Reproductive Endocrinology-[place] 206 Work Phone: Start: 96-01-9342Putusyc encounter procedureBrooke ne-EzqqeWD-Sgvbjjlnpfja [facility]inology-[place] [facility] Work Phone: Start: 48-24-1900Yhcrgtc encounter procedureBrooke ir-OrztsAX-Qxswxkfnpegh [facility]-[place] 206 Work Phone: Start: 40-20-8005Uwosewf encounter procedureBrooke gq-NtzvsAC-Pqtfpshtnjta [facility]inology-[place] 206 Work Phone: Start: 35-93-2862Girywkc encounter procedureBrooke qj-IulbcPO-Tyvwzwbtqnnf [facility]in[facility]-[place] 206 Work Phone: Start: 55-99-8634Gfbzqni encounter procedureBrooke ph-JqljrBM-Nkbgxhydkujb [facility]inology-[place] 206 Work Phone: Start: 96-90-3999Swahwfg encounter procedureBrooke fh-LvipgEW-Nipraryqjkpz [facility]in[facility]-[place] [facility] Work Phone: Start: 13-55-9703Bpcqmbk encounter procedureBrooke zf-LwrvxGA-Fhwppfyxkecj [facility]in[facility]-[place] 206 Work Phone: Start: 22-70-8273Iimlnyv encounter procedureBrooke hn-EbyzpAD-Tvmbvkafckix [facility]inology-[place] 206 Work Phone: Start: 94-34-3050Xrxohyq encounter procedureBrooke rw-WvhiaXF-Zsudshgoeqxt [facility]inology-[place] 206 Work Phone: Start: 47-13-1309Rbkzmxi encounter procedureBrooke kk-SiixqOE-Dcfqwcvppign [facility]inology-[place] 206 Work Phone: Start: 99-76-3524Kilpeoh encounter procedureBrooke js-JwlcdCL-Hpshlsiliips [facility]ology-[place] 206 Work Phone: Start: 03-15-2981Wckaajj encounter procedureBrooke wt-KvothYJ-Vrxgibmiaibw [facility]in[facility]-[place] 206 Work Phone: Start: 93-42-9102Jyjjods encounter procedureBrooke uh-BefwgKC-Xxfsgnujmbmw [facility]-[place] 206 Work Phone: Start: 35-86-0912Dvtvhgi encounter procedureBrooke wj-XrmhvND-Cbelhdhgqudv [facility]inology-[place] 206 Work Phone: Start: 12-24-2123Suqgwtg encounter procedureBrooke ch-JzkctUT-Dlatcgaocrpm [facility]inology-[place] 206 Work Phone: Start: 72-04-6600Yggvegn encounter procedureBrooke he-IvhknHW-Khthjculhaad [facility]-[place] 206 Work Phone: Start: 40-17-0729Ykdftnt encounter procedureBrooke bv-AxzzxTM-Xbifwoakybwn [facility]-[place] 206 Work Phone: Start: 37-24-5985Bxxpgqn encounter procedureBrooke ve-XwomzSH-Ozkrtaosihbh [facility]-[place] 206 Work Phone: Start: 69-18-7742Tglxzlt encounter procedureBrooke ge-PdmneMF-Azuohqqjfmhl [facility]-[place] 206 Work Phone: Start: 35-80-7754Jztvgad encounter procedureBrooke mx-BmafsDC-Kwmmihdpkadf [facility]-[place] [facility] Work Phone: Procedures DateProcedureProcedure DetailPerforming ClinicianStart: 01-28-2025 End: 50-50-0425Wbejlyrtwjqod w/patient 60 minutesRecurrent major depressive disorder, in partial remissionKelsey Gray PhD Work Phone: Comment on above:Recurrent major depressive disorder, in partial remission (Primary Dx)Start: 12-24-2024 End: 84-36-9823Bnwofgiuvgsyy w/patient 60 minutesRecurrent major depressive disorder, in partial remissionKelsey Gray PhD Work Phone: Comment on above:Recurrent major depressive disorder, in partial remission (Primary Dx)Start: 11-05-2024 End: 56-68-7612Qyasywmhyzuzw w/patient 60 minutesRecurrent major depressive disorder, in partial remissionKelsey Gray PhD Work Phone: Comment on above:Recurrent major depressive disorder, in partial remission (Primary Dx)Start: 09-13-2024 End: 82-74-6143Rxwdkhgbcbenq w/patient 60 minutesRecurrent major depressive disorder, in partial remissionKelsey Gray PhD Work Phone: Comment on above:Recurrent major depressive disorder, in partial remission (Primary Dx)Start: 08-09-2024 End: 06-73-3935Qjzyvzrqtafzz w/patient 60 minutesRecurrent major depressive disorder, in partial remission (CMS-HCC)Kelsey Gray PhD Work Phone: Comment on above:Recurrent major depressive disorder, in partial remission (CMS-HCC) (Primary Dx)Start: 07-12-2024 End: 44-80-7623Rlvcgwpttbrkf w/patient 60 minutesRecurrent major depressive disorder, in partial remission (CMS-HCC)Kelsey Gray PhD Work Phone: Comment on above:Recurrent major depressive disorder, in partial remission (CMS-HCC) (Primary Dx)Start: 06-14-2024 End: 37-09-9229Jglgewemuicqc w/patient 60 minutesRecurrent major depressive disorder, in partial remission (CMS-HCC)Kelsey Gray PhD Work Phone: Comment on above:Recurrent major depressive disorder, in partial remission (CMS-HCC) (Primary Dx)Start: 04-16-2024 End: 71-88-1917Vfkmyvylbximk w/patient 60 minutesRecurrent major depressive disorder, in partial remission (CMS-HCC)Kelsey Gray PhD Work Phone: Comment on above:Recurrent major depressive disorder, in partial remission (CMS-HCC) (Primary Dx)Start: 03-05-2024 End: 11-14-2533Ukhyztimjjssi w/patient 60 minutesRecurrent major depressive disorder, in partial remission (CMS-HCC)Kelsey Grya PhD Work Phone: Comment on above:Recurrent major depressive disorder, in partial remission (CMS-HCC) (Primary Dx)Start: 01-30-2024 End: 07-93-3035Qzixjfiizkori w/patient 60 minutesRecurrent major depressive disorder, in partial remission (CMS-HCC)Kelsey Gray PhD Work Phone: Comment on above:Recurrent major depressive disorder, in partial remission (CMS-HCC) (Primary Dx)Start: 11-17-2023 End: 03-45-9867Dqllifgphdzkp w/patient 60 minutesRecurrent major depressive disorder, in partial remission (CMS-HCC)Kelsey Gray PhD Work Phone: Comment on above:Recurrent major depressive disorder, in partial remission (CMS-HCC) (Primary Dx)Start: 10-06-2023 End: 61-57-8554Fgippoqabxufl w/patient 60 minutesRecurrent major depressive disorder, in partial remission (CMS-HCC)Kelsey Gray PhD Work Phone: Comment on above:Recurrent major depressive disorder, in partial remission (CMS-HCC) (Primary Dx)Start: 09-08-2023 End: 04-41-5051Zasagidgwrtni w/patient 60 minutesRecurrent major depressive disorder, in partial remission (CMS-HCC)Kelsey Gray PhD Work Phone: Comment on above:Recurrent major depressive disorder, in partial remission (CMS-HCC) (Primary Dx)Start: 08-11-2023 End: 64-00-1251Tgrfcxymywxtg w/patient 60 minutesRecurrent major depressive disorder, in partial remission (CMS-HCC)Kelsey Gray PhD Work Phone: Comment on above:Recurrent major depressive disorder, in partial remission (CMS-HCC) (Primary Dx)Start: 39-51-6423Nnbyjjegihuqz w/patient 60 minutesBenjamin E Ball Work Phone: Start: 44-72-3309Lzthzzbfptbtn w/patient 60 minutes Aquiles E Ball Work Phone: Start: 70-65-9021Iknbcurdouzai w/patient 60 minutes Aquiles E Ball Work Phone: Start: 54-27-8548Ixdxogay screenPHYSICIAN NO FAMILY Comment on above:Result Comment: PERFORMED BY: [facility] [address] [place] [address] PATHOLOGIST FLASH RANGING CREWMEMBER RENETTA CASE M.D.Start: 38-35-1651Kzaewzyccaodq w/patient 60 minutesBenjamin E Ball Work Phone: Start: 96-08-1127Ttajcaldufyiu w/patient 60 minutes Aquiles E Ball Work Phone: Start: 23-80-4749Zyukogiwnxaex w/patient 60 minutes Aquiles E Ball Work Phone: Start: 05-37-8619Mrghborcirupz w/patient 60 minutes Aquiles E Ball Work Phone: Start: 24-80-6097Cpqacrhfhkvtl w/patient 60 minutes Aquiles E Ball Work Phone: Start: 32-11-0261Hihebcjpsak [Units/volume] in Serum or PlasmaKelsey Gray PhD Work Phone: Start: 29-96-0730Uxyktiruayvrh w/patient 60 minutes Aquiles E Ball Work Phone: Start: 12-22-1769Jftoedrcnppqw w/patient 60 minutes Aquiles E Ball Work Phone: Start: 16-73-4101Npflhwvpklg observation [Identifier] in Cervix by Cyto stainKelsey Gray PhD Work Phone: Start: 92-20-0648Lviexjgfyudkp w/patient 60 minutes Aquiles E Ball Work Phone: Start: 51-82-6213Ytbeywaoucyyr w/patient 60 minutes Aquiles E Ball Work Phone: Start: 87-33-2277Fhbhruzwfymaq w/patient 60 minutes Aquiles E Ball Work Phone: Start: 43-86-8641Orxwewiudfgze w/patient 60 minutes Aquiles E Ball Work Phone: Start: 49-65-4279Gimnwdozostjx w/patient 60 minutes Aquiles E Ball Work Phone: Start: 93-35-7968Lzlqtumgkdfnl w/patient 60 minutes Aquiles E Ball Work Phone: Start: 19-52-3452Qrpvleuukztmm w/patient 60 minutes Aquiles E Ball Work Phone: Start: 09-44-4159Xbivqwzwalpvl w/patient 60 minutes Aquiles E Ball Work Phone: Start: 62-25-8205Nmzqwjykfkeuo w/patient 60 minutes Aquiles E Ball Work Phone: Start: 42-14-0608ZhjjzeskcgiQbrqbj RossiStart: 55-19-2715Gvquqsq total xcpt refractometry urineBrooke RossiStart: 03-22-2020 Assay of blood/uric acidBrooke RossiStart: 19-06-7484Derzi metabolic 1998 panel - Serum or PlasmaBrooke RossiStart: 48-26-0984Zeryy count complete auto&auto difrntl wbcBrooke RossiStart: 69-33-5886Bwrymaf function panelBrooke RossiStart: 26-07-4407Bgxavjj total xcpt refractometry urineBrooke RossiStart: 08-19-2019 Assay of estradiolBrooke RossiStart: 91-34-2266Foehs of progesteroneBrooke Godinez Start: 45-55-3767QD Ultrasound, limited pelvic, follicle monitoringBrooke Godinez Start: 81-69-5080BfrropwaxguRzulz Kelley PhD Work Phone: Start: 17-50-3982XsgqzalkebsZlgmztew Rinkes DO Work Phone: dilation and curettageBrooke zz-RossiHistory of Cholecystectomy LaparoscopicBrooke zz-RossiHistory of Exploratory Laparoscopy Luana clarkez-RossiComment on above:For pelvic pain--> no evidence of endometriosis. Was then diagnosed with Crohn's disease.;History of Foot SurgeryBrooke zz-Godinez Operation on gallbladderBrooke zz-Godinez Plan of Treatment DateCare ActivityDetailAuthorStart: 97-17-2478Zxziwkima for malignant neoplasm of colonUniversity Hospitals [facility]: 71-28-3886WSbD/Tdap/Td Vaccines (2 - Td or Tdap)DTaP/Tdap/Td Vaccines (2 - Td or Tdap)[facility] SystemSt[facility] city: 47-06-6312Yejdpwjfj for malignant neoplasm of cervixNOMS HealthcareStart: 65-40-0826Rvrjerzgm for malignant neoplasm of colonNOMS HealthcareStart: 06-20-2025 End: 15-36-5382Fllznwyhgtaq consultation with bnlyzul5106/20/2025 1:00 PM EDT Telemedicine [facility] [address] [facility] [address] [place] [address] [place] [address] Margot Muñoz Department of GLASSWARE DEFECT REPAIRER-Behavioral Medicine [place] [id number] [facility]: 05-23-2025 End: 72-99-1072Abzrxtzkmhcx consultation with dyddnwv5205/23/2025 1:00 PM EST Telemedicine [facility] [address] [facility] [address] [place] [address] [place] [address] Margot Muñoz Department of GLASSWARE DEFECT REPAIRER[place] [address] [facility]: 04-25-2025 End: 94-59-2313Fpfchggflkoa consultation with ivdbasw8204/25/2025 1:00 PM EST Telemedicine [facility] [address] [facility] [address] [place] [address] [place] [address] Margot Muñoz Department of GLASSWARE DEFECT REPAIRER[place] [address] [facility]: 04-08-2025 End: 07-97-6729Fodnyph encounter sqfpqlsuz62/09/2026 11:45 AM EST Office Visit [facility] [address] [place] [address] Tess Saxena DO [address] [place] [address] [facility] OBStart: 03-18-2025 End: 04-91-9334Hipvijrumlio consultation with patientCooper [facility] Hospital MacDonaldStart: 12-80-7235Ckiarh Adult PhysicalYearly Adult PhysicalOhio State Health SystemStart: 01-28-2025 End: 26-78-7115Gjgfofieudrv consultation with unyyren0501/28/2025 11:00 AM EDT Telemedicine [facility] [address] [facility] [address] [place] [address] [place] [address] Margot Muñoz Department of GLASSWARE DEFECT REPAIRER[place] [address] [facility]: 12-24-2024 End: 63-84-1291Gmkgukmdcnfc consultation with sfhdaeu0512/24/2024 10:00 AM EDT Telemedicine [facility] [address] [facility] [address] [place] [address] [place] [address] Margot Muñoz Department of GLASSWARE DEFECT REPAIRER[place] [address] [facility]: 26-92-1795Twsnckvny vaccinationInfluenza Vaccine (#1)[facility] SystemStart: 11-05-2024 End: 13-83-9222Xnjgmxgaovep consultation with whqxigo6411/05/2024 1:00 PM EDT Telemedicine [facility] [address] [facility] [address] [place] [address] [place] [address] Margot Muñoz Department of GLASSWARE DEFECT REPAIRER[place] [address] [facility]: 90-93-3249Pttwfyihr vaccinationInfluenza Vaccine (#1)[facility]: 19-66-4174Vrmnvfjtr for malignant neoplasm of cervixUniversity Hospitals Conneaut [facility] Center: 09-13-2024 End: 92-55-1960Uhiitpbmierz consultation with wvcvvsp4809/13/2024 1:00 PM EDT Telemedicine [facility] [address] [facility] [address] [place] [address] [place] [address] Margot Muñoz Department of GLASSWARE DEFECT REPAIRER[place] [address] [facility]: 86-96-1284Vgqrygzd mellitus screeningDiabetes ScreeningUniversity Hospitals [facility]aut Medical Center: 08-09-2024 End: 49-49-7662Lozshxfqayde consultation with rdfpvpt7208/09/2024 1:00 PM EDT Telemedicine [facility] [address] [facility] [address] [place] [address] [place] [address] Margot Muñoz Department of GLASSWARE DEFECT REPAIRER[place] [address] [facility]: 07-12-2024 End: 43-33-5698Xyssjyhgmdlu consultation with znajfnv7007/12/2024 1:00 PM EDT Telemedicine [facility] [address] [place] [address] [place] [address] Margot Muñoz Department of GLASSWARE DEFECT REPAIR[place] [address] [facility]: 06-14-2024 End: 54-66-6204Vpmcswldxess consultation with patient Holly Dor[facility] PavilionStart: 04-16-2024 End: 91-59-6813Pxrjxmjdtuvv consultation with patientBaptist Memorial Hospital for WomenArmandoyumikoStart: 03-05-2024 End: 49-12-7745Lbycwsnprfdo consultation with kjxnxxp9403/05/2024 1:00 PM EST Telemedicine [facility] [address] Margot Muñoz [address] [address] [place] [address] Margot Muñoz Department of GLASSWARE DEFECT REPAIR[place] [address] [facility] SystemyumikoStart: 03-05-2024 End: 94-75-7395Ombkkvw encounter axcuaowmd76/06/2024 9:00 AM EST Office Visit [facility] [address] [place] [address] Tess Saxena, [address] [place] [address] Encounter for gynecological examination without abnormal finding; Screening for malignant neoplasm of cervixNOMS SWS OBComment on above: Encounter for gynecological examination without abnormal finding; Screening for malignant neoplasm of cervixStart: 01-30-2024 End: 58-49-6822Lrsnodiosmrc consultation with rigseti5601/30/2024 1:00 PM EDT Telemedicine [facility] [address] Margot Muñoz [address] [address] [place] [address] Margot Muñoz Department of GLASSWARE DEFECT REPAIR[place] [address] [facility] for WomenArmandoyumikoStart: 01-02-2024 End: 53-43-7381Zngjnkkvnoem consultation with psflrxq0701/02/2024 1:00 PM EDT Telemedicine [facility] [place] [address] [address] [place] [address] [address] Muñoz Department of GLASSWARE DEFECT REPAIR[place] [address] [facility] WomenArmandoyumikoStart: 12-08-2023 End: 36-05-0585Dzjaajlkdvyf consultation with hvyluzl3812/08/2023 1:00 PM EDT Telemedicine Holly Morel [address] [place] [address] [place] [address] Margot Muñoz Department of GLASSWARE DEFECT REPAIR[place] [address] Holly Mendosatart: 02-11-5619JGKZP-19 Vaccine ( season)COVID-19 Vaccine ( season)[facility] Start: 94-93-0485Vlzqpiqfd vaccinationInfluenza Vaccine (#1)[facility] SystemStart: 11-07-2023 End: 72-67-4741Syxtzkywzsny consultation with uryedzb6811/07/2023 1:00 PM EDT Telemedicine [facility] [place] [address] [address] [place] [address] Margot Muñoz Department of GLASSWARE DEFECT REPAIR[place] [address] [facility] WomenArmandolourdes medical centerStart: 10-06-2023 End: 10-98-1135Ecjuipqbgbeh consultation with qtoxtux2610/06/2023 8:00 AM EDT Telemedicine Holly [address]l [address] [place] [address] [place] [address] Margot Muñoz Department of GLASSWARE DEFECT REPAIRER[place] [address] Holly Dorsey SudhailionStart: 09-22-2023 End: 49-45-8566Rknvnpb encounter gmvzebmap01/24/2024 11:00 AM EDT Office Visit [facility] [address] [place] [address] [place] [address] Margot Muñoz [place] [address] [facility] Oconomowoctart: 09-08-2023 End: 36-62-2316Ojpmtqpdbohn consultation with ygjazrp6309/08/2023 1:00 PM EDT Telemedicine [place] [address] [place] [address] [place] [address] Margot Muñoz Department of GLASSWARE DEFECT REPAIRER[place] [address] Holly Dorsey RossonStart: 53-67-5476Fygdqgv stimulating hormone measurementAllianceHealth Midwest – Midwest CitySttower city: 94-90-7695AYNUX-19 Vaccine ( season)COVID-19 Vaccine ( season)[facility]: 33-80-5813Tobcr B Streptococcus CultureGroup B Streptococcus CultureMarymount Hospitaltart: 67-36-5133MAO, Provider: Flakita Antonio, Status: Pen, Time: 8:45 AMFUV, Provider: Flakita Antonio, Status: Pen, Time: 8:45 VRHU-Gmqgzrkxvq-Sdsmrhqx [address] DO Work Phone: Start: 08-45-2094Gimgbniiidab Vaccine: Pediatrics (0 to 5 Years) and At-Risk Patients (6 to 64 Years) (2 of 2 - PCV)Pneumococcal Vaccine: Pediatrics (0 to 5 Years) and At-Risk Patients (6 to 64 Years) (2 of 2 - PCV)[facility]: 76-55-5296Dqqyrrbzkyoc Vaccine: Pediatrics and At-Risk Adult Patients (2 of 2 - PCV)Pneumococcal Vaccine: Pediatrics and At-Risk Adult Patients (2 of 2 - PCV)[facility]: 58-63-0695PGWDTFEINQ, Provider: OBGYN IVF RDMS [id number] 1,MG OBGYN, Status: Pen, Time: 1:30 PMULTRASOUND, Provider: OBGYN IVF RDMS [id number] 1,MG OBGYN, Status: Pen, Time: 1:30 YZWZ-Dwjqgfkrny-Dkatqtlh 2100 DO Work Phone: Start: 10-88-6366PHWELRX, Provider: IVF NURSE RAYNA WAGNER, Status: Pen, Time: 8:00 AMRNVISIT, Provider: IVF NURSE RAYNA WAGNER, Status: Pen, Time: 8:00 WVOS-JRBJB-Vdiyvva 206A IVF Work Phone: Start: 91-88-9608ISOQSNB, Provider: IVF NURSE RAYNA WAGNER, Status: Pen, Time: 8:00 AMRNVISIT, Provider: IVF NURSE RAYNA WAGNER, Status: Pen, Time: 8:00 QYNV-ZRAPF-Gzserf 310 IVF Work Phone: Start: 54-96-4639OZVYAPEV, Provider: OBGYN IVF RDMS BERNARD 1,MG OBGYN, Status: Pen, Time: 7:40 AMULTRALAB, Provider: OBGYN IVF RDMS BERNARD 1,MG OBGYN, Status: Pen, Time: 7:40 BYOA-BDYHR-Oocdmz 310 IVF Work Phone: Start: 19-98-9764RQVOBNKFJK, Provider: Lon Johnson, Status: Pen, Time: 2:00 PMHYSTEROSPY, Provider: Lon Johnson, Status: Pen, Time: 2:00 SOSU-LIRGX-Udhnqe [address] Work Phone: Start: 40-57-9163HUIDRO, Provider: Zari Oviedo, Status: Pen, Time: 11:00 AMFUVREI, Provider: Zari Oviedo, Status: Pen, Time: 11:00 CQDR-WXHNO-Lhgwrjl 206A IVF Work Phone: Start: 52-10-9368SZGSKYX, Provider: IVF NURSE RAYNA WAGNER, Status: Pen, Time: 6:50 AMRNVISIT, Provider: IVF NURSE RAYNA WAGNER, Status: Pen, Time: 6:50 VUJS-FBYJM-Rebsgup 206A IVF Work Phone: Start: 06-92-7959ZWC, Provider: Flakita Antonio, Status: Pen, Time: 3:45 PMFUV, Provider: Flakita Antonio, Status: Pen, Time: 3:45 HEID-Lrjsphbmkf-Ynbjdj Work Phone: Start: 65-00-2230QDNXGCFPWO, Provider: Zari Oviedo, Status: Pen, Time: 1:30 PMVIRFUVHOME, Provider: Zari Oviedo, Status: Pen, Time: 1:30 AHKL-Jcsanvnuvb-Lebptvmb 2100 DO Work Phone: Start: 94-75-0333UNF, Provider: Flakita Antonio, Status: Pen, Time: 7:45 AMFUV, Provider: Flakita Antonio, Status: Pen, Time: 7:45 HSRU-Ilkblouwae-Igfrrszz 2100 DO Work Phone: Start: 65-74-1552WKL, Provider: Flakita Antonio, Status: Pen, Time: 3:45 PMFUV, Provider: Flakita Antonio, Status: Pen, Time: 3:45 RNOQ-Hecsgiftxd-Druekelv 2100 DO Work Phone: Start: 45-72-2316YZKESYZ, Provider: Flakita Antonio, Status: Pen, Time: 3:00 PMNPVRFRL, Provider: Flakita Antonio, Status: Ulisses, Time: 3:00 [facility] Work Phone: Start: 85-46-4581Ovlbkdwat for malignant neoplasm of breastMammogramUniversity Hospitals Conneaut Medical Center: 49-23-3141Laumxsn D25-[place] Vitamin V37-IXVziyyopnxeUniversity Hospitals Conneaut Medical Center: 62-14-4700Kdeoqlgkl for malignant neoplasm of cervixHPV/CotestUnThe [facility] Hospital: 75-27-0354Ymxxgvezp B Vaccines (1 of 3 - 19+ 3-dose series)Hepatitis B Vaccines (1 of 3 - 19+ 3-dose series)[facility]: 1997 Zoster Vaccines (1 of 2)Zoster Vaccines (1 of 2)[facility]: 68-63-7683YKNOV-19 Vaccine (#1)COVID-19 Vaccine (#1)[facility]: 46-98-3855Pfcnukvrlkslye vitamin b-12Vitamin B-12 [facility]: 53-71-0780Zgafz panelLipid Panel [facility]: 76-96-9105Ewbwdojam for malignant neoplasm of colonUniversity Hospitals Conneaut [facility] Center: 91-52-1325Uxrypgnsw for osteoporosisBone Density ScanUniversity Hospitals Conneaut Medical Center: 1978 TB TestTB TestUniversity Hospitals Conneaut Medical Center: 11-30-6149Bjfbel Adult PhysicalYearly Adult PhysicalUnMary Rutan HospitalDBT Breast - bilateral screeningBilateral screening mammogram with tomosynthesis Imaging Routine Encounter for screening mammogram for breast cancer Ordered: 03/05/2024 [facility] HealthcareComment on above:Ordered: 03/05/2024SENDOUT TEST MISCELLANEOUS [facility]PSEND[facility] MIS[facility] Lab Routine Screening for malignant neoplasm of cervix Ordered: 03/05/2024[facility] Work Phone: 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:Ordered: 03/05/20244009VR-BDNQQ-Oencsd 310 IVF Work Phone: NEGATED: Highlighted row has been ruled out!Planned Goals not cusnwgyergBN-NRPUK-Chqjho 310 IVF Work Phone: Immunizations Immunization DateImmunizationNotesCare ZvmmlpzqIofomdkg71-50-2909sfflallds virus vaccine, unspecified formulationKelsey Gray PhD Work Phone: [phone] Work Phone: [phone]qh virus vaccine, unspecified formulationKathleen Rinkes DO Work Phone: University HospitalFmvekmstkk30-86-6540qzgtqvilb virus vaccine, unspecified formulationKelsey Gray PhD Work Phone: [facility] Work Phone: [phone]qhwrksaj polysaccharide vaccine, 23 valentBenjamin Ball Other [facility]01-25-2022 Pneumococcal polysaccharide vaccine, 23 valentBenjamin E Ball Work Phone: [phone]-Jdrgfynakw-[place] [address] DO Work Phone: [phone]-70 mRNA, Comirnaty (Pfizer)[facility]03-12-2021COVID-19 mRNA, Comirnaty (Pfizer)[facility]12-11-2020tetanus toxoid, reduced diphtheria toxoid, and acellular pertussis vaccine, adsorbed; Translations:[Tdap (Adacel)]Luana JORDAN-OBGYN-[place] [address] IVF Work Phone: Comment on above:Series: Payers DatePayer CategoryPayerPolicy [id number] Cross Blue ShieldBCBS [id number] Holy Cross Medical Center [address] 8-57851.2.840.883597.1.13.647.2.7.9.508777.266131.89363-46-6000Rowbbbz35-07-5663 RkvfskjCNQ3814[id number] prpb2694-c5p6-7t13-um38-kc7b1qck6ryy61-37-8184Fhplbfi0387121 1.731979.3.579.2.42207-40-8350Nilsenf5286982 .1.708450.3.579.2.66048-43-4826Glbwyvg3660616 .1.031238.3.579.2.19460-56-4607Mnkaapt0230803 ..1.918522.3.579.2.18457-57-7564Inoaaiw5293326 2.1.435700.3.579.2.72092-66-5147Ifcpryt310868531 2.16.840.1.478747.3.579.2.05915-05-4734Onikxcf655696337 2.0.1.760535.3.579.2.55268-10-4324Kavlqiq490717613 2.840.1.247936.3.579.2.32674-97-5735Aqwbzsu046562147 2..1.784272.3.579.2.04104-40-8042Drsbaue912923788 2..1.055366.3.579.2.94543-12-3406Qugirbn601181198 2..1.465510.3.579.2.02429-50-6076Gyqrsix458976246 2..1.790620.3.579.2.30651-22-8212Whconxi648069902 2..1.815556.3.579.2.01008-95-8023Pnlevbg839417932 2..1.459104.3.579.2.76589-63-2252Rqfpekf087541987 2..1.106127.3.579.2.62603-78-7218Femdply741849314 2..1.889787.3.579.2.42036-80-5721Mvqfaob506321291 2..1.320548.3.579.2.72011-65-3058Dlohwwd136689112 2..1.055889.3.579.2.56537-72-7082Sxfabmk13545511 2..1.286941.3.579.2.106813-63-5556Ohnkzhq20827723 2..1.370450.3.579.2.061202-07-3551Ytzljpk33717854 2.16.840.1.234203.3.579.2.848753-12-2590Hpowifj78600154 2..1.431950.3.579.2.953079-53-1090Afacuih40645518 2.0.1.689545.3.579.2.264738-62-3742Brtgumw97666966 2..1.540773.3.579.2.543235-68-5536Nahlspd87829365 2..1.339241.3.579.2.980086-27-7570Uvdcsor789902829 2..1.908634.3.579.2.730685-96-5404Cepnert927643269 2..1.715895.3.579.2.119247-37-0996Zhhvecf873644972 2..1.974074.3.579.2.059794-34-7729Qquyldr807420712 2..1.960385.3.579.2.501993-28-7646Xwqghql130670455 2..1.778117.3.579.2.664316-38-9323Kbrrmyu149132280 2..1.831719.3.579.2.613247-53-8587Zgcdgke092034747 2..1.348001.3.579.2.257238-38-5598Nhbdrgr355141224 2..1.629407.3.579.2.228120-11-4033Desmmiz404208664 2.0.1.821249.3.579.2.2782ElnfcoyXUIO90110831Jkmhycx61202128 2.16.840.1.224798.3.579.2.707Vslcuyu41528334 2.16.840.1.516405.3.579.2.243 Fgygvwv87948898 2.16.840.1.597819.3.579.2.446Eipbrgi29472037 2.16.840.1.602235.3.579.2.087Mgjhurj31056793 2.16.840.1.718265.3.579.2.531 Futtmlp21966225 2.16.840.1.227404.3.579.2.724Cwisnad55438628 2.16.840.1.709314.3.579.2.531 Social History DateTypeDetailFacilityStart: 03-04-2024 End: 34-25-7732Fogyd a smokerNever a frzmpvVJ-GDMAB-IJC[address] Work Phone: 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: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;Start: 12-35-4587Dgt [facility]2017 End: 08-60-3696Wsudchz smoking status NHISNever smoked tobacco (finding) [facility]: 07-81-7241Pdt Assigned At [facility] [place] Other Tobacco smoking status NHISTobacco smoking consumption unknownUnMary Rutan Hospital Work Phone: Start: 11-45-0688Fhe assigned at critical access hospitalNot on file [facility] Work Phone: Start: 07-04-2023 End: 96-81-9403Lumxgrpx to SARS-CoV-2 (event)Not sureOhio State Health SystemStart: 39-07-7058Ojfqdfz use and exposureSmokeless tobacco non-userNOMS HealthcareStart: 03-04-2024 End: 96-23-9218Tfsbrtjri beverage intakeCurrent drinker of alcohol (finding)[facility] HealthcareStart: 26-19-1481Dzoeibk CommentCaffeine intake: 1-2 cups per day coffee, soda/popNOMS HealthcareStart: 62-20-4374RdoPlgbnfUemehpgtsx [facility] ClevelandStart: 53-57-4615UniLsfwni (finding)[facility] NEGATED: Highlighted row-Never smokerMP-Reproductive Endocrinology- Work Phone: Medical Equipment Procedure CodeEquipment CodeEquipment Original TextEquipment IdentifierDates Iconix Speed [place] 2.3 Mm 2 Strands 2.0mm Xbraid Tt Suture Tape Case [id number]: 70-90-2137Zaymipi on above:Description: Converted from Care Acute. Please see archived information for full log information.Reel Stt 4.5 Mm [place] Case [id number]: 10-08-7357Ihymyaq on above:Description: Converted from Care Acute. Please see archived information for full log information.[employer]ix Speed [place] 2.3 Mm 2 Strands 2.0 Mm Xbraid Tt Suture Tape Case [id number]: 50-29-3703Iittiag on above:Description: Converted from Care Acute. Please see archived information for full log information. Functional Status NwwrQnyqmofelvKmkfvoZmnvqptx40-89-6978Hvvvozzphw statusUnMary Rutan Hospital10-31-2025UnMary [facility] Work Phone: [phone]) [phone]nzuhwp statusUnMary Rutan Hospital09-26-2025UnMary [facility] Work Phone: NEGATED: Highlighted rowFunctional performance Functional status health issues are not documented DiseaseMP-Reproductive Endocrinology-[facility] Work Phone: Mental Status DateAssessmentResultFacilityNEGATED: Highlighted rowCognitive function [Interpretation]Cognitive status health issues are not documented DiseasePEAK BE[facility] Reproductive EndocrinologyUpper [place] Work Phone: Clinical Notes 11-29-2020 to 03-05-2024 Note Date & LmhlQgxyMrjarozw52-02-3072 History of Present illness Narrative* Tess Saxena, DO - 03/05/2024 9:00 AM EST Images from the original note were not [...] Review Audit Reviewed by Taylor Soto MA (Hvac R Tech) on 03/05/24 at 0905 Medication Order Taking? Sig Documenting Provider Last Dose Status Discontinued 03/05/24 0905 Famotidine (PEPCID PO) [id number] Pepcid Tess Saxena DO Active levothyroxine (Synthroid, Levoxyl) 100 MCG tablet [id number] TAKE 1 TABLET BY MOUTH EVERY DAY IN THE MORNING ON AN EMPTY STOMACH Tess Saxena DO Active VIT-FE CBN-FE SULF-FA PO [id number] Take by mouth. Historical Provider, Active sertraline (Zoloft) 100 MG tablet [id number] Take by mouth. Historical Provider, Active tiZANidine (Zanaflex) 4 MG tablet [id number] TAKE 1/2 - 1 TABLET BY MOUTH AT BEDTIME NEEDED FOR NECK PAIN Tess Saxena DO Active Past Medical History: Diagnosis Date Bacterial vaginosis Crohn disease (CMS/HCC) Depression (CMS/HCC) Female infertility History of medical problems immuno compromised Gets IV IG monthly Hypertension (CMS/HCC) Hypothyroid (CMS/HCC) Miscarriage Ovarian cyst Varicella zoster Past Surgical [...] Father Ousmane Wetoskey Heart disease Father Ousmane Wetoskey Hypothyroidism Father Ousmane Wetoskey Seizures Brother Annie Lewiskey Breast cancer Paternal Grandfather Mainyaritza Wetoskey Cancer Mother's Sister Scarlet Guzmanin Breast cancer Father's Sister Eder Garciaer Asthma Daughter Allergies Daughter peanuts and eggs Physical Exam - General appearance, mentation, extraocular movements, facial strength and movement, hearing, upper and lower extremity strength and tone, sensation to gross testing, coordination, and gait are normalor at baseline unless noted below. General Examination: [...] for breast cancer Z12.31 documented in this encounterUniversity HospitalIfxbiinrog52-91-4329 History of Present illness Narrative* Tino Mulligan MD - 09/22/2023 11:00 AM EDT 43-year-old female here for second opinion regarding lumbar spine surgery. She was diagnosed with spondylolisthesis and was recommended to have surgery, particularly a lumbar fusion at L5-S1. She has a history of chronic lower back pain, 1 or 2 flareups a year that will last for about a month at a time. Typically they resolve with rn complex care. This time her symptoms began in Marchbut they have not resolved. 90% of her [...] spondylolisthesis, primarily axial lower back pain, minor componentof nerve pain. We discussed continued conservative care versus surgical treatment. I explained thatthe primary reason for having lumbar spine surgery [...] of with history of infertility, first trimester ([facility]) 01/16/2017 with history of infertility in first [...] Not on file Tino Mulligan MD Director, [facility] [place] Service Person Department of Orthopaedic Surgery [address] [place] [address] documented in this encounterOhio State Health System Work Phone: [phone] 287-732708-30-2023 Evaluation note* Encounter Date Diagnosis Assessment Notes Treatment Notes Treatment Clinical Notes Oct, Wellness examination (ICD-10 - Z 00.00) Healthy diet and exercise. Reviewed age-appropriate preventive testing recommended. Oct,rohn's disease of small intestine without complications (ICD-10 - K50.00)No active disease, not prescribed maintanence therapy, f/u GI Oct,astroesophageal reflux disease with esophagitis without hemorrhage (ICD-10 - K21.00)Diet instructions: Smaller portions, avoid eating and laying flat, avoid eating or drinking prior to bedtime. Weight loss. Oct,utoimmune thyroiditis (ICD-10 - E06.3)Euthyroid clinically, yearly TSH Oct,Other specified hypothyroidism (ICD-10 - E03.8) Oct,Recurrent major depressive disorder, in full remission (ICD-10 - F33.42)Stable w/ treatment Continue healthy diet, exercise, keep active [facility] Other 04-17-2022 History of Present illness Narrative* Patient is a 41 year old female who presents with history of infertility. * Patient of Dr. 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 [facility] [place] [facility] IV[facility] Work Phone: [phone]) [phone] History of Present illness Narrative* Since last [...] Dr. Maldonado. 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 [place]-Gndpjbmlbw-Wzpekccg [address] DO Work Phone: [phone] 188-629209-01-2021 History of Present illness Narrative* WILD CALVO [...] intermittent diarrhea. 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 ZS-Cbaldtqesi-Yvihxohc [address] DO Work Phone: [phone]) 500-887609-01-2021 History of Present illness Narrative* WILD CALVO [...] intermittent diarrhea. 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 TA-Qdpsusytqj-Tyzmbdbh 6322 DO Work Phone: [phone]) 590-533909-01-2021 History of Present illness Narrative* WILD CALVO [...] intermittent diarrhea. 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 OX-Emveynsafs-Wzmtoyvo [address] DO Work Phone: Evaluation noteNo assessment information available [facility] Work Phone: Evaluation noteNo InformationNort [place] Other Evaluation note* Diagnosis Recurrent major depressive disorder, in partial remission (CMS-HCC)- Primary documented in this encounter [facility] Work Phone: Evaluation note* Diagnosis Onset Date Resolution Status Crohn's disease acuteGAD (generalized anxiety disorder)acuteHypothyroidacuteMajor depression acuteNephrolithiasisacuteScreening mammogram for breast canceracuteWellness examinationacute [facility] Work Phone: Evaluation note* Diagnosis Recurrent major depressive disorder, in partial remission (CMS-HCC)- Primary documented in this encounter [facility] Work Phone: Evaluation note* Diagnosis Encounter for gynecological examination without abnormal finding Screening for malignant neoplasm of cervix Screening for malignant neoplasm of the cervix Encounter for screening mammogram for breast cancer documented in this encounter [facility] HealthcareEvaluation note* Diagnosis Recurrent major depressive disorder, in partial remission (CMS-HCC)- Primary documented in this encounter [facility] Work Phone: [phone] note* Diagnosis Chronic low back pain without sciatica, unspecified back pain laterality- Primary documented in this encounter [facility] Work Phone: [phone] note* Diagnosis Recurrent major depressive disorder, in partial remission (CMS-HCC)- Primary documented in this encounter [facility] Work Phone: [phone] note* Diagnosis Recurrent major depressive disorder, in partial remission (CMS-HCC)- Primary documented in this encounter [facility] Work Phone: [phone] note* Diagnosis Recurrent major depressive disorder, in partial remission (CMS-HCC)- Primary documented in this encounter [facility] Work Phone: [phone] note* Diagnosis Recurrent major depressive disorder, in partial remission- Primary documented in this encounter [facility] Work Phone: Evaluation note* Diagnosis Recurrent major depressive disorder, in partial remission- Primary documented in this encounter [facility] Work Phone: Evaluation note* Diagnosis Onset Date Resolution Status Admit Date Crohn's disease acuteSeptember 2024 1:31pmGAD (generalized anxiety disorder)acuteSept2024 1:31pmHypothyroidacuteSept2024 1:31pmLumbar spondylosis acuteSept2024 1:31pmMajor depressionacuteSept2024 1:31pm NephrolithiasisacuteSept2024 1:31pmScreening mammogram for breast canceracuteSept2024 1:31pmWellness examinationacuteSept2024 1:[facility] Work Phone: Evaluation note* Diagnosis Recurrent major depressive disorder, in partial remission- Primary documented in this encounter [facility] Work Phone: Evaluation note* Diagnosis Recurrent major depressive disorder, in partial remission- Primary documented in this encounter [facility] Work Phone: History general Narrative - Reported* Type Description Date Medical History Generalized anxiety disorder Medical HistoryMajor depressive disorder, recurrent, mildMedical HistoryCrohn's disease of small intestine without complicationsMedical HistoryOther specified hypothyroidismSurgical HistorylaparoscopySurgical HistorycholecystectomySurgical Historyfoot surgeryHospitalization Historysee above surgical history [facility] Other Reason for referral (narrative)No reason for referral information availableBethesda North Hospital Work Phone: Summary Purpose Family History aunt Name Dates Details Family history of [...] neoplasm of female breast: Paternal Aunt(V16.3, Z80.3) Status:ActiveDenies Family history of defect: Family History(V19.5, Z82.79) Status:No pertinent family history: Mother, Father(V49.89, Z78.9) Status:ActiveDenies Family history of mental retardation: Multiple Family Members(V18.4, Z81.0) Status: Unknown Family Member Name Dates Details Family history of malignant neoplasm of female breast: Paternal Aunt(V16.3, Z80.3) Status:ActiveDenies Family history of defect: Family History(V19.5, Z82.79) Status:No pertinent family history: Mother, Father(V49.89, Z78.9) Status:ActiveDenies Family history of mental retardation: Multiple Family Members(V18.4, Z81.0) Status: Unknown Family Member Name Dates Details No pertinent family history: Mother, Father(V49.89, Z78.9) Status:ActiveDenies Family history of mental retardation: Multiple Family Members(V18.4, Z81.0) Status:Denies Family history of defect: Family History(V19.5, Z82.79) Status:Family history of malignant neoplasm of female breast: Paternal Aunt (V16.3, Z80.3) Status:Active Unknown Family Member Name Dates Details Family history of malignant neoplasm of female breast: Paternal Aunt(V16.3, Z80.3) Status:ActiveDenies Family history of defect: Family History(V19.5, Z82.79) Status:No pertinent family history: Mother, Father(V49.89, Z78.9) Status:ActiveDenies Family history of mental retardation: Multiple Family Members(V18.4, Z81.0) Status: Unknown Family Member Name Dates Details Family history of malignant neoplasm of female breast: Paternal Aunt(V16.3, Z80.3) Status:ActiveDenies Family history of defect: Family History(V19.5, Z82.79) Status:No pertinent family history: Mother, Father(V49.89, Z78.9) Status:ActiveDenies Family history of mental retardation: Multiple Family Members(V18.4, Z81.0) Status: Unknown Family Member Name Dates Details Family history of malignant neoplasm of female breast: Paternal Aunt(V16.3, Z80.3) Status:ActiveDenies Family history of defect: Family History(V19.5, Z82.79) Status:No pertinent family history: Mother, Father(V49.89, Z78.9) Status:ActiveDenies Family history of mental retardation: Multiple Family Members(V18.4, Z81.0) Status: Unknown Family Member Name Dates Details Family history of malignant neoplasm of female breast: Paternal Aunt(V16.3, Z80.3) Status:ActiveDenies Family history of defect: Family History(V19.5, Z82.79) Status:No pertinent family history: Mother, Father(V49.89, Z78.9) Status:ActiveDenies Family history of mental retardation: Multiple Family Members(V18.4, Z81.0) Status: Unknown Family Member Name Dates Details Denies Family history of men pattie retardation: Multiple Family Members(V18.4, Z81.0) Status:No pertinent family history: Mother, Father(V49.89, Z78.9) Status:ActiveDenies Family history of defect: Family History(V19.5, Z82.79) Status:Family history of malignant neoplasm of female breast: Paternal Aunt (V16.3, Z80.3) Status:Active Unknown Family Member Name Dates Details Denies Family history of bir th defect: Family History(V19.5, Z82.79) Status:Family history of malignant neoplasm of female breast: Paternal Aunt (V16.3, Z80.3) Status:ActiveNo pertinent family history: Mother, Father(V49.89, Z78.9) Status:ActiveDenies Family history of mental retardation: Multiple Family Members(V18.4, Z81.0) Status: Unknown Family Member Name Dates Details Family history of malignant neoplasm of female breast: Paternal Aunt(V16.3, Z80.3) Status:ActiveDenies Family history of defect: Family History(V19.5, Z82.79) Status:No pertinent family history: Mother, Father(V49.89, Z78.9) Status:ActiveDenies Family history of mental retardation: Multiple Family Members(V18.4, Z81.0) Status: Unknown Family Member Name Dates Details Family history of malignant neoplasm of female breast: Paternal Aunt(V16.3, Z80.3) Status:ActiveDenies Family history of defect: Family History(V19.5, Z82.79) Status:Denies Family history of mental retardation: Multiple Family Members (V18.4, Z81.0) Status:Family history of cardiac disorder: Mother(V17.49, Z82.49) Status:ActiveSinus problem: Father Status:Active Unknown Family Member Name Dates Details Denies Family history of men pattie retardation: Multiple Family Members(V18.4, Z81.0) Status:Family history of cardiac disorder: Mother(V17.49, Z82.49) Status:ActiveSinus problem: Father Status:ActiveDenies Family history of defect: Family History(V19.5, Z82.79) Status:Family history of malignant neoplasm of female breast: Paternal Aunt (V16.3, Z80.3) Status:Active Unknown Family Member Name Dates Details Denies Family history of men pattie retardation: Multiple Family Members(V18.4, Z81.0) Status:Sinus problem: Father Status:ActiveFamily history of cardiac disorder: Mother(V17.49, Z82.49) Status:ActiveDenies Family history of defect: Family History(V19.5, Z82.79) Status:Family history of malignant neoplasm of female breast: Paternal Aunt (V16.3, Z80.3) Status:Active Unknown Family Member Name Dates Details Denies Family history of bir th defect: Family History(V19.5, Z82.79) Status:Denies Family history of mental retardation: Multiple Family Members (V18.4, Z81.0) Status:Sinus problem: Father Status:ActiveFamily history of cardiac disorder: Mother(V17.49, Z82.49) Status:ActiveFamily history of malignant neoplasm of female breast: Paternal Aunt(V16.3, Z80.3) Status:Active Unknown Family Member Name Dates Details Family history of malignant neoplasm of female breast: Paternal Aunt(V16.3, Z80.3) Status:ActiveDenies Family history of defect: Family History(V19.5, Z82.79) Status:Denies Family history of mental retardation: Multiple Family Members (V18.4, Z81.0) Status:Family history of cardiac disorder: Mother(V17.49, Z82.49) Status:ActiveSinus problem: Father Status:Active Unknown Family Member Name Dates Details Denies Family history of bir th defect: Family History(V19.5, Z82.79) Status:Denies Family history of mental retardation: Multiple Family Members (V18.4, Z81.0) Status:Family history of cardiac disorder: Mother(V17.49, Z82.49) Status:ActiveSinus problem: Father Status:ActiveFamily history of malignant neoplasm of female breast: Paternal Aunt(V16.3, Z80.3) Status:Active Unknown Family Member Name Dates Details Denies Family history of bir th defect: Family History(V19.5, Z82.79) Status:Denies Family history of mental retardation: Multiple Family Members (V18.4, Z81.0) Status:Family history of cardiac disorder: Mother(V17.49, Z82.49) Status:ActiveSinus problem: Father Status:ActiveFamily history of malignant neoplasm of female breast: Paternal Aunt(V16.3, Z80.3) Status:Active Unknown Family Member Name Dates Details Denies Family history of bir th defect: Family History(V19.5, Z82.79) Status:Denies Family history of mental retardation: Multiple Family Members (V18.4, Z81.0) Status:Family history of cardiac disorder: Mother(V17.49, Z82.49) Status:ActiveSinus problem: Father Status:ActiveFamily history of malignant neoplasm of female breast: Paternal Aunt(V16.3, Z80.3) Status:Active Unknown Family Member Name Dates Details Family history of malignant neoplasm of female breast: Paternal Aunt(V16.3, Z80.3) Status:ActiveDenies Family history of defect: Family History(V19.5, Z82.79) Status:Denies Family history of mental retardation: Multiple Family Members (V18.4, Z81.0) Status:Family history of cardiac disorder: Mother(V17.49, Z82.49) Status:ActiveSinus problem: Father Status:Active Unknown Family Member Name Dates Details Family history of malignant neoplasm of female breast: Paternal Aunt(V16.3, Z80.3) Status:ActiveDenies Family history of defect: Family History(V19.5, Z82.79) Status:Denies Family history of mental retardation: Multiple Family Members (V18.4, Z81.0) Status:Family history of cardiac disorder: Mother(V17.49, Z82.49) Status:ActiveSinus problem: Father Status:Active Unknown Family Member Name Dates Details Family history of malignant neoplasm of female breast: Paternal Aunt(V16.3, Z80.3) Status:ActiveDenies Family history of defect: Family History(V19.5, Z82.79) Status:Denies Family history of mental retardation: Multiple Family Members (V18.4, Z81.0) Status:Family history of cardiac disorder: Mother(V17.49, Z82.49) Status:ActiveSinus problem: Father Status:Active Unknown Family Member Name Dates Details Denies Family history of bir th defect: Family History(V19.5, Z82.79) Status:Denies Family history of mental retardation: Multiple Family Members (V18.4, Z81.0) Status:Family history of malignant neoplasm of female breast: Paternal Aunt (V16.3, Z80.3) Status:ActiveFamily history of cardiac disorder: Mother(V17.49, Z82.49) Status:ActiveSinus problem: Father Status:Active Unknown Family Member Name Dates Details Denies Family history of men pattie retardation: Multiple Family Members(V18.4, Z81.0) Status:Sinus problem: Father Status:ActiveFamily history of cardiac disorder: Mother(V17.49, Z82.49) Status:ActiveDenies Family history of defect: Family History(V19.5, Z82.79) Status:Family history of malignant neoplasm of female breast: Paternal Aunt (V16.3, Z80.3) Status:Active Unknown Family Member Name Dates Details Family history of malignant neoplasm of female breast: Paternal Aunt(V16.3, Z80.3) Status:ActiveDenies Family history of defect: Family History(V19.5, Z82.79) Status:Denies Family history of mental retardation: Multiple Family Members (V18.4, Z81.0) Status:Family history of cardiac disorder: Mother(V17.49, Z82.49) Status:ActiveSinus problem: Father Status:Active Unknown Family Member Name Dates Details Denies Family history of men pattie retardation: Multiple Family Members(V18.4, Z81.0) Status:Sinus problem: Father Status:ActiveFamily history of cardiac disorder: Mother(V17.49, Z82.49) Status:ActiveDenies Family history of defect: Family History(V19.5, Z82.79) Status:Family history of malignant neoplasm of female breast: Paternal Aunt (V16.3, Z80.3) Status:Active Unknown Family Member Name Dates Details Family history of malignant neoplasm of female breast: Paternal Aunt(V16.3, Z80.3) Status:ActiveDenies Family history of defect: Family History(V19.5, Z82.79) Status:Denies Family history of mental retardation: Multiple Family Members (V18.4, Z81.0) Status:Family history of cardiac disorder: Mother(V17.49, Z82.49) Status:ActiveSinus problem: Father Status:Active Unknown Family Member Name Dates Details Family history of malignant neoplasm of female breast: Paternal Aunt(V16.3, Z80.3) Status:ActiveDenies Family history of defect: Family History(V19.5, Z82.79) Status:Denies Family history of mental retardation: Multiple Family Members (V18.4, Z81.0) Status:Family history of cardiac disorder: Mother(V17.49, Z82.49) Status:ActiveSinus problem: Father Status:Active Unknown Family Member Name Dates Details Family history of malignant neoplasm of female breast: Paternal Aunt(V16.3, Z80.3) Status:ActiveDenies Family history of defect: Family History(V19.5, Z82.79) Status:Denies Family history of mental retardation: Multiple Family Members (V18.4, Z81.0) Status:Family history of cardiac disorder: Mother(V17.49, Z82.49) Status:ActiveSinus problem: Father Status:Active Unknown Family Member Name Dates Details Denies Family history of bir th defect: Family History(V19.5, Z82.79) Status:Denies Family history of mental retardation: Multiple Family Members (V18.4, Z81.0) Status:Family history of cardiac disorder: Mother(V17.49, Z82.49) Status:ActiveSinus problem: Father Status:ActiveFamily history of malignant neoplasm of female breast: Paternal Aunt(V16.3, Z80.3) Status:Active Unknown Family Member Name Dates Details Denies Family history of men pattie retardation: Multiple Family Members(V18.4, Z81.0) Status:Sinus problem: Father Status:ActiveFamily history of cardiac disorder: Mother(V17.49, Z82.49) Status:ActiveDenies Family history of defect: Family History(V19.5, Z82.79) Status:Family history of malignant neoplasm of female breast: Paternal Aunt (V16.3, Z80.3) Status:Active Unknown Family Member Name Dates Details Denies Family history of men pattie retardation: Multiple Family Members(V18.4, Z81.0) Status:Family history of cardiac disorder: Mother(V17.49, Z82.49) Status:ActiveSinus problem: Father Status:ActiveDenies Family history of defect: Family History(V19.5, Z82.79) Status:Family history of malignant neoplasm of female breast: Paternal Aunt (V16.3, Z80.3) Status:Active Unknown Family Member Name Dates Details Family history of malignant neoplasm of female breast: Paternal Aunt(V16.3, Z80.3) Status:ActiveDenies Family history of defect: Family History(V19.5, Z82.79) Status:Denies Family history of mental retardation: Multiple Family Members (V18.4, Z81.0) Status:Family history of cardiac disorder: Mother(V17.49, Z82.49) Status:ActiveSinus problem: Father Status:Active Unknown Family Member Name Dates Details Family history of malignant neoplasm of female breast: Paternal Aunt(V16.3, Z80.3) Status:ActiveDenies Family history of defect: Family History(V19.5, Z82.79) Status:Denies Family history of mental retardation: Multiple Family Members (V18.4, Z81.0) Status:Family history of cardiac disorder: Mother(V17.49, Z82.49) Status:ActiveSinus problem: Father Status:Active Unknown Family Member Name Dates Details Denies Family history of men pattie retardation: Multiple Family Members(V18.4, Z81.0) Status:Family history of cardiac disorder: Mother(V17.49, Z82.49) Status:ActiveSinus problem: Father Status:ActiveDenies Family history of defect: Family History(V19.5, Z82.79) Status:Family history of malignant neoplasm of female breast: Paternal Aunt (V16.3, Z80.3) Status:Active Unknown Family Member Name Dates Details Denies Family history of bir th defect: Family History(V19.5, Z82.79) Status:Denies Family history of mental retardation: Multiple Family Members (V18.4, Z81.0) Status:Family history of cardiac disorder: Mother(V17.49, Z82.49) Status:ActiveSinus problem: Father Status:ActiveFamily history of malignant neoplasm of female breast: Paternal Aunt(V16.3, Z80.3) Status:Active Unknown Family Member Name Dates Details Denies Family history of men pattie retardation: Multiple Family Members(V18.4, Z81.0) Status:Family history of cardiac disorder: Mother(V17.49, Z82.49) Status:ActiveSinus problem: Father Status:ActiveDenies Family history of defect: Family History(V19.5, Z82.79) Status:Family history of malignant neoplasm of female breast: Paternal Aunt (V16.3, Z80.3) Status:Active Unknown Family Member Name Dates Details Family history of malignant neoplasm of female breast: Paternal Aunt(V16.3, Z80.3) Status:ActiveDenies Family history of defect: Family History(V19.5, Z82.79) Status:Denies Family history of mental retardation: Multiple Family Members (V18.4, Z81.0) Status:Family history of cardiac disorder: Mother(V17.49, Z82.49) Status:ActiveSinus problem: Father Status:Active Unknown Family Member Name Dates Details Denies Family history of men pattie retardation: Multiple Family Members(V18.4, Z81.0) Status:Sinus problem: Father Status:ActiveFamily history of cardiac disorder: Mother(V17.49, Z82.49) Status:ActiveDenies Family history of defect: Family History(V19.5, Z82.79) Status:Family history of malignant neoplasm of female breast: Paternal Aunt (V16.3, Z80.3) Status:Active Unknown Family Member Name Dates Details Denies Family history of men pattie retardation: Multiple Family Members(V18.4, Z81.0) Status:Sinus problem: Father Status:ActiveFamily history of cardiac disorder: Mother(V17.49, Z82.49) Status:ActiveDenies Family history of defect: Family History(V19.5, Z82.79) Status:Family history of malignant neoplasm of female breast: Paternal Aunt (V16.3, Z80.3) Status:Active Unknown Family Member Name Dates Details Family history of malignant neoplasm of female breast: Paternal Aunt(V16.3, Z80.3) Status:ActiveDenies Family history of defect: Family History(V19.5, Z82.79) Status:Denies Family history of mental retardation: Multiple Family Members (V18.4, Z81.0) Status:Family history of cardiac disorder: Mother(V17.49, Z82.49) Status:ActiveSinus problem: Father Status:Active Unknown Family Member Name Dates Details Denies Family history of men pattie retardation: Multiple Family Members(V18.4, Z81.0) Status:Family history of cardiac disorder: Mother(V17.49, Z82.49) Status:ActiveSinus problem: Father Status:ActiveDenies Family history of defect: Family History(V19.5, Z82.79) Status:Family history of malignant neoplasm of female breast: Paternal Aunt (V16.3, Z80.3) Status:Active Unknown Family Member Name Dates Details Family history of malignant neoplasm of female breast: Paternal Aunt(V16.3, Z80.3) Status:ActiveDenies Family history of defect: Family History(V19.5, Z82.79) Status:Denies Family history of mental retardation: Multiple Family Members (V18.4, Z81.0) Status:Family history of cardiac disorder: Mother(V17.49, Z82.49) Status:ActiveSinus problem: Father Status:Active Unknown Family Member Name Dates Details Family history of malignant neoplasm of female breast: Paternal Aunt(V16.3, Z80.3) Status:ActiveDenies Family history of defect: Family History(V19.5, Z82.79) Status:Denies Family history of mental retardation: Multiple Family Members (V18.4, Z81.0) Status:Family history of cardiac disorder: Mother(V17.49, Z82.49) Status:ActiveSinus problem: Father Status:Active Unknown Family Member Name Dates Details Family history of malignant neoplasm of female breast: Paternal Aunt(V16.3, Z80.3) Status:ActiveDenies Family history of defect: Family History(V19.5, Z82.79) Status:Denies Family history of mental retardation: Multiple Family Members (V18.4, Z81.0) Status:Family history of cardiac disorder: Mother(V17.49, Z82.49) Status:ActiveSinus problem: Father Status:Active Unknown Family Member Name Dates Details Family history of malignant neoplasm of female breast: Paternal Aunt(V16.3, Z80.3) Status:ActiveDenies Family history of defect: Family History(V19.5, Z82.79) Status:Denies Family history of mental retardation: Multiple Family Members (V18.4, Z81.0) Status:Family history of cardiac disorder: Mother(V17.49, Z82.49) Status:ActiveSinus problem: Father Status:Active Unknown Family Member Name Dates Details Denies Family history of bir th defect: Family History(V19.5, Z82.79) Status:Denies Family history of mental retardation: Multiple Family Members (V18.4, Z81.0) Status:Family history of cardiac disorder: Mother(V17.49, Z82.49) Status:ActiveSinus problem: Father Status:ActiveFamily history of malignant neoplasm of female breast: Paternal Aunt(V16.3, Z80.3) Status:Active Unknown Family Member Name Dates Details Family history of malignant neoplasm of female breast: Paternal Aunt(V16.3, Z80.3) Status:ActiveDenies Family history of defect: Family History(V19.5, Z82.79) Status:Denies Family history of mental retardation: Multiple Family Members (V18.4, Z81.0) Status:Family history of cardiac disorder: Mother(V17.49, Z82.49) Status:ActiveSinus problem: Father Status:Active Unknown Family Member Name Dates Details Family history of malignant neoplasm of female breast: Paternal Aunt(V16.3, Z80.3) Status:ActiveDenies Family history of defect: Family History(V19.5, Z82.79) Status:Denies Family history of mental retardation: Multiple Family Members (V18.4, Z81.0) Status:Family history of cardiac disorder: Mother(V17.49, Z82.49) Status:ActiveSinus problem: Father Status:Active Unknown Family Member Name Dates Details Family history of malignant neoplasm of female breast: Paternal Aunt(V16.3, Z80.3) Status:ActiveDenies Family history of defect: Family History(V19.5, Z82.79) Status:Denies Family history of mental retardation: Multiple Family Members (V18.4, Z81.0) Status:Family history of cardiac disorder: Mother(V17.49, Z82.49) Status:ActiveSinus problem: Father Status:Active Unknown Family Member Name Dates Details Family history of malignant neoplasm of female breast: Paternal Aunt(V16.3, Z80.3) Status:ActiveDenies Family history of defect: Family History(V19.5, Z82.79) Status:Denies Family history of mental retardation: Multiple Family Members (V18.4, Z81.0) Status:Family history of cardiac disorder: Mother(V17.49, Z82.49) Status:ActiveSinus problem: Father Status:Active Unknown Family Member Name Dates Details Family history of malignant neoplasm of female breast: Paternal Aunt(V16.3, Z80.3) Status:ActiveDenies Family history of defect: Family History(V19.5, Z82.79) Status:Denies Family history of mental retardation: Multiple Family Members (V18.4, Z81.0) Status:Sinus problem: Father Status:ActiveFamily history of cardiac disorder: Mother(V17.49, Z82.49) Status:Active Unknown Family Member Name Dates Details Denies Family history of men pattie retardation: Multiple Family Members(V18.4, Z81.0) Status:Sinus problem: Father Status:ActiveFamily history of cardiac disorder: Mother(V17.49, Z82.49) Status:ActiveDenies Family history of defect: Family History(V19.5, Z82.79) Status:Family history of malignant neoplasm of female breast: Paternal Aunt (V16.3, Z80.3) Status:Active Unknown Family Member Name Dates Details Denies Family history of men pattie retardation: Multiple Family Members(V18.4, Z81.0) Status:Family history of cardiac disorder: Mother(V17.49, Z82.49) Status:ActiveSinus problem: Father Status:ActiveDenies Family history of defect: Family History(V19.5, Z82.79) Status:Family history of malignant neoplasm of female breast: Paternal Aunt (V16.3, Z80.3) Status:Active Unknown Family Member Name Dates Details Denies Family history of bir th defect: Family History(V19.5, Z82.79) Status:Denies Family history of mental retardation: Multiple Family Members (V18.4, Z81.0) Status:Sinus problem: Father Status:ActiveFamily history of cardiac disorder: Mother(V17.49, Z82.49) Status:ActiveFamily history of malignant neoplasm of female breast: Paternal Aunt(V16.3, Z80.3) Status:Active Unknown Family Member Name Dates Details Family history of malignant neoplasm of female breast: Paternal Aunt(V16.3, Z80.3) Status:ActiveDenies Family history of defect: Family History(V19.5, Z82.79) Status:Denies Family history of mental retardation: Multiple Family Members (V18.4, Z81.0) Status:Family history of cardiac disorder: Mother(V17.49, Z82.49) Status:ActiveSinus problem: Father Status:Active Unknown Family Member Name Dates Details Family history of malignant neoplasm of female breast: Paternal Aunt(V16.3, Z80.3) Status:ActiveDenies Family history of defect: Family History(V19.5, Z82.79) Status:Denies Family history of mental retardation: Multiple Family Members (V18.4, Z81.0) Status:Family history of cardiac disorder: Mother(V17.49, Z82.49) Status:ActiveSinus problem: Father Status:Active Unknown Family Member Name Dates Details Sinus problem: Father Status:ActiveFamily history of cardiac disorder: Mother(V17.49, Z82.49) Status:ActiveDenies Family history of mental retardation: Multiple Family Members(V18.4, Z81.0) Status:Denies Family history of defect: Family History(V19.5, Z82.79) Status:Family history of malignant neoplasm of female breast: Paternal Aunt (V16.3, Z80.3) Status:Active Unknown Family Member Name Dates Details Denies Family history of men pattie retardation: Multiple Family Members(V18.4, Z81.0) Status:Family history of cardiac disorder: Mother(V17.49, Z82.49) Status:ActiveSinus problem: Father Status:ActiveDenies Family history of defect: Family History(V19.5, Z82.79) Status:Family history of malignant neoplasm of female breast: Paternal Aunt (V16.3, Z80.3) Status:Active Advance Directives Advance Directive Response Recorded Date/ Time Advance Directives No July 23, 018 2:26pm Procedure Findings Note Post Operative Note: PreOp D iagnosis: Haglunds deformity, Left achilles tendinopathy, Left Post-Procedure Diagnosis: same Procedure: 1. Left tendon detachment reattachment 2. Left resection of calcaneal spur 3. Injection PRP Surgeon: Christopher Harris Resident/Fellow/Other Band Instrument Repairer: Cruz Robles, PGY-3, Jayne Martin, PGY-1 Anesthesia: [...] Screening mammogram for breast cancer Wellness examination Chief Complaint Admit Date Wellness visit December 15, 2024 1:31pm Reason for Visit Admit Date Crohn's disease December 15, 2024 1:31pm GUSTABO (generalized anxiety disorder) Septe mber 2024 1:31pm Hypothyroid December 15, 2024 1:31pm Lumbar spondylosis December 15, 2024 1:31pm Major depression December 15, 2024 1:31pm Nephrolithiasis December 15, 2024 1:31pm Screening mammogram for breast cancer Se ptember 2024 1:31pm Wellness examination December 15 1:31pm Additional Source Comments INFORMATION SOURCE (unrecogn ized section and content) DATE CREATED AUTHOR 03/09/2018 [facility] DATE CREATED AUTHOR AUTHOR'S ORGANIZ ATION 07/06/2019 [facility] DATE CREATED AUTHOR AUTHOR'S ORGANIZ ATION 10/17/2019 [facility] DATE CREATED AUTHOR AUTHOR'S ORGANIZ ATION 03/28/2020 [facility] DATE CREATED AUTHOR AUTHOR'S ORGANIZ ATION 01/01/2022 [employer] DATE CREATED AUTHOR AUTHOR'S ORGANIZ ATION 07/12/2022 [facility] DATE CREATED AUTHOR AUTHOR'S ORGANIZ ATION 09/06/2022 [facility] DATE CREATED AUTHOR AUTHOR'S ORGANIZ ATION 01/14/2023 [facility] DATE CREATED AUTHOR AUTHOR'S ORGANIZ ATION 09/17/2023 [facility] DATE CREATED AUTHOR AUTHOR'S ORGANIZ ATION 12/12/2023 [facility] DATE CREATED AUTHOR AUTHOR'S ORGANIZ ATION 01/30/2025 [facility] Ambulatory Goals (unrecognized section and content) Goals may be documented in a n alternate sectionGoals may be documented in an alternate sectionNo InformationNo InformationGoals may be documented in an alternate sectionGoals may be documented in an alternate section Care Teams (unrecognized sec tion and content) Team Status: Inactive Member Role Status Dates Tess Saxena DO Attending Provider Active Team MemberRelationshipSpecialtyStart DateEnd Date Generic Provider, [place] [address] PCP - GeneralGeneral Practice07/14/23 Team Status: Active Member Role Status Dates Aquiles Escobedo DO Primary Care Provider Active Team Status: Active Member Role Status Dates Aquiles Escobedo DO Primary Care Provide r, Attending Provider Active Start: November 26, 2023 Team Status: Inactive Member Role Status Dates Aquiles Escobedo DO Primary Care Provide r, Attending Provider Active Start: December 10, 2023 End: December 10, 2023Team MemberRelationshipSpecialtyStart DateEnd Date Generic Provider, [place] [address] PCP - GeneralGeneral Practice07/14/23Team MemberRelationshipSpecialtyStart Date End Date Aquiles Escobedo MD [address] [place] [phone] PCP - GeneralInternal Medicine10/09/22Team MemberRelationshipSpecialtyStart Date End Date Aquiles Escobedo MD [address] [facility] [place] [phone] PCP - GeneralInternal Medicine10/09/22Team MemberRelationshipSpecialtyStart Date End Date Generic Provider, No [place] [address] PCP - GeneralGeneral Practice07/14/23Team MemberRelationshipSpecialtyStart Date End Date Generic Provider, No [place] [address] PCP - GeneralGeneral Practice07/14/23Team MemberRelationshipSpecialtyStart Date End Date Generic Provider, No [place] [address] PCP - GeneralGeneral Practice07/14/23Team MemberRelationshipSpecialtyStart Date End Date Generic Provider, No [place] [address] PCP - GeneralGeneral Practice07/14/23Team MemberRelationshipSpecialtyStart Date End Date Generic Provider, No [place] [address] PCP - GeneralGeneral Practice07/14/23Team MemberRelationshipSpecialtyStart Date End Date Generic Provider, No [place] [address] PCP - GeneralGeneral Practice07/14/23Team MemberRelationshipSpecialtyStart Date End Date Generic Provider, No [place] [address] PCP - GeneralGeneral Practice07/14/23Team MemberRelationshipSpecialtyStart Date End Date Generic Provider, No [place] [address] PCP - GeneralGeneral Practice07/14/23Team MemberRelationshipSpecialtyStart Date End Date Generic Provider, No [place] [address] PCP - GeneralGeneral Practice07/14/23 Team Status: Active Member Role Status Michelle Escobedo DO Primary Care Provider Active Start: December 15, 2024 Angel Dorsey DOAttending ProviderActiveStart: December 15, 2024 Team Status: Inactive Member Role Status Dates Aquiles Escobedo DO Primary Care Provider Active Start: December 15, 2024 End: December 15radha Escobedo DOAttending ProviderActiveStart: December 15, 2024 End: December 15, 2024Team MemberRelationshipSpecialtyStart DateEnd Date Generic Provider, No [place] [address] PCP - GeneralGeneral Practice07/14/23Team MemberRelationshipSpecialtyStart Date End Date Generic Provider, No Assigned [place]cpMD [place] [address] [facility]23 REASON FOR VISIT (unrecogniz ed section and content) ReasonCommentsGynecologic ExamDenies concerns, Denies bowel/bladder/breast concerns. Pt stopped in September. Pt would like to discuss if she should wait 6 months before having mammogram. LMP 01/02/24. Pt has only had 2 pe riods since stopping . Pt did not have [...] BE BASED ON THE PRIMARY CLINICAL RECORDS. [facility] [employer] provides no warranty or guarantee of the accuracy or completeness of information in this document.
--- NOTE | 2025-02-08 16:59 | XR_ITS ---
[facility] [place] [id number] Patient Name: WILD YI MRN: [id number] date: 1980 Sex: F Assigned Patient Location: [facility] Current Patient Location: [facility] Accession/Order Number: [id number] Exam Date: 02/08/2025 16:55 Report Date: 02/08/2025 19:22 At the request of: CIRO ESCOBEDO DO Procedure: XR abdomen 1V Single view abdomen INDICATION: Right flank pain COMPARISON: None FINDINGS: Surgical clips right upper quadrant likely from prior cholecystectomy. Moderate colonic stool burden. No bowel obstruction. No radiopaque calcifications overlying the renal shadows or psoas muscles. Degenerative changes lumbosacral junction and both sacroiliac joints. XR/XR abdomen 1V IMPRESSION: Moderate stool without bowel obstruction. No radiopaque calcifications identified. Impression dictated by: Jorge Alberto Saavedra M.D. 02/08/2025 7:22 PM Dictation Location: [place] [address] Electronically authenticated by: [id number] Date: 02/08/2025 19:22
== END 2025-02-08 16:54 | disposition home or self-care (01) ==
PROVIDERS: PCP Internal Medicine; Visit Provider Internal Medicine
DX: R10.31 Right lower quadrant pain (principal)
CPT/HCPCS: 74018